=== PATIENT | male | born 1950 | race Caucasian/White ===

== ENCOUNTER 2017-01-17 09:30 | Inpatient (IN) | payer MEDICARE, OTHER ==
[~2017-01-17] VITALS: Ht 172.7 cm; Wt 76.5 kg
[2017-01-17] MEDS ORDERED: SODIUM CHLORIDE 0.9% 1L BAG IV* STA (10:26)
--- NOTE | 2017-01-17 10:30 | ERA ---
ER Documentation Chief Complaint Date/Time DATE: 01/17/17 TIME: 10:28 Chief Complaint FEVER WITH GENERALIZED WEAKNESS HPI Patient is a 66-year-old male who presents with 4-5 days of fever associated with generalized malaise and fatigue. He reports having a gradual onset, mild headache. He denies neck stiffness. He reports 2 episodes of coughing vomiting clear fluid. He reports a chronic cough productive of clear sputum that he associates with smoking. He denies shortness of breath, chest pain, back pain, dysuria, abdominal pain, diarrhea. He denies recent travel. He denies myalgias. ROS All systems reviewed and are negative except as per history of present illness. Medications Home Meds Reported Medications Febuxostat* (Uloric*) 40 Mg Tablet, 40 MG PO DAILY, TAB 01/17/17 Dexlansoprazole (Dexilant) 60 Mg Cap., 60 MG PO QAM, #30 CAP 01/17/17 Loratadine* (Loratadine*) 10 Mg Tablet, 10 MG PO DAILY, #30 TAB 01/17/17 Losartan Potassium* (Losartan Potassium*) 50 Mg Tablet, 50 MG PO DAILY, TAB 01/17/17 Zolpidem Tartrate* (Zolpidem Tartrate*) 10 Mg Tablet, 10 MG PO QHS Y for INSOMNIA, #30 TAB 01/17/17 Diltiazem Hcl* (Cardizem CD*) 240 Mg Cap.sr.24h, 240 MG PO DAILY, #30 CAP 01/17/17 Diphenhydramine Hcl* (Diphenhydramine Hcl*) 25 Mg Capsule, 25 MG PO QHS Y for ITCHING, CAP 01/17/17 Docusate Sodium* (Docusate Sodium*) 100 Mg Capsule, 100 MG PO TID, #90 CAP 01/17/17 Allergies Allergies: Coded Allergies: No Known Allergy (Unverified , 01/17/17) PMhx/Soc Past medical history: Abbi's granulomatosis, hypertension, chronic kidney disease, COPD, lung cancer Past surgical history: Resection of lung tumor, left wrist surgery Social history: Smoker for many years, occasional alcohol FmHx Family History: No coronary disease, No diabetes Physical Exam Vitals Vital Signs Date Time Temp Pulse Resp B/P Pulse Ox O2 Delivery O2 Flow Rate FiO2 01/17/17 10:57 98.1 97 21 164/87 99 01/17/17 09:32 97.0 108 18 146/83 98 Physical Exam Const: Alert, no acute distress Head: Atraumatic Eyes: Normal Conjunctiva, No pallor, no icterus ENT: Normal External Ears, Nose and Mouth. Tacky mucous membranes Neck: Full range of motion..~ No meningismus.No adenopathy. Resp: Clear to auscultation bilaterally, No wheezes, no rales Cardio: Regular rate and rhythm, no murmurs Abd: Soft, non tender, non distended.No guarding, no rebound Skin: No petechiae or rashes Back: No midline or flank tenderness Ext: No cyanosis, or edema Neur: Awake and alert, Cranial nerves II through XII intact bilaterally, strength and sensation full in 4 extremities. Psych: Normal Mood and Affect Result Diagram: 01/17/17 1002 01/17/17 1002 Results 24 hrs Laboratory Tests Test 01/17/17 10:02 01/17/17 11:53 White Blood Count 10.110^3/ul Red Blood Count 5.1010^6/ul Hemoglobin 14.0g/dl Hematocrit 40.0% Mean Corpuscular Volume 78.4fl Mean Corpuscular Hemoglobin 27.5pg Mean Corpuscular Hemoglobin Concent 35.0g/dl Red Cell Distribution Width 15.9% Platelet Count 22995^3/UL Mean Platelet Volume 10.5fl Neutrophils % 80.6% Lymphocytes % 7.2% Monocytes % 10.8% Eosinophils % 0.4% Basophils % 0.4% Nucleated Red Blood Cells % 0.0/100WBC Neutrophils # (Manual) 8.110^3/ul Lymphocytes # 0.710^3/ul Monocytes # 1.110^3/ul Eosinophils # 0.010^3/ul Basophils # 0.010^3/ul Nucleated Red Blood Cells # 0.010^3/ul Prothrombin Time 12.0Sec Prothrombin Time Ratio 0.9 INR International Normalized Ratio 0.89 Activated Partial Thromboplast Time 25.3Sec Sodium Level 134mmol/L Potassium Level 4.0mmol/L Chloride Level 99mmol/L Carbon Dioxide Level 22mmol/L Anion Gap 17 Blood Urea Nitrogen 20mg/dl Creatinine 2.30mg/dl Glucose Level 170mg/dl Lactic Acid Level 1.7mmol/L Calcium Level 9.7mg/dl Total Bilirubin 0.2mg/dl Direct Bilirubin 0.00mg/dl Indirect Bilirubin 0.2mg/dl Aspartate Amino Transf (AST/SGOT) 21IU/L Alanine Aminotransferase (ALT/SGPT) 33IU/L Alkaline Phosphatase 98IU/L Total Protein 7.1g/dl Albumin 4.4g/dl Globulin 2.70g/dl Albumin/Globulin Ratio 1.62 Urine Color YELLOW Urine Clarity CLEAR Urine pH 5.0 Urine Specific [place] 1.018 Urine Ketones NEGATIVEmg/dL Urine Nitrite NEGATIVEmg/dL Urine Bilirubin NEGATIVEmg/dL Urine Urobilinogen NEGATIVEmg/dL Urine Leukocyte Esterase NEGATIVELeu/ul Urine Microscopic RBC 2/HPF Urine Microscopic WBC 1/HPF Urine Bacteria FEW/HPF Urine Hemoglobin NEGATIVEmg/dL Urine Glucose NEGATIVEmg/dL Urine Total Protein 3+mg/dl Current Medications Medications (Trade) Dose Ordered Sig/Zaire Route PRN Reason Start Time Stop Time Status Last Admin Dose Admin Sodium Chloride (NS) 2,390 ml BOLUS OVER 2 HOURS STAT IV* 01/17/17 10:26 01/17/17 10:28 DC 01/17/17 10:56 Acetaminophen (Tylenol Tab) 1,000 mg ONCE STAT PO 01/17/17 11:08 01/17/17 11:16 DC 01/17/17 11:22 Ondansetron HCl (Zofran Inj) 4 mg BRIDGE ORDER PRN IV NAUSEA AND/OR VOMITING 01/17/17 14:00 01/18/17 13:59 Acetaminophen 650 mg 650 mg ER BRIDGE PRN PO MILD PAIN/FEVER 01/17/17 14:00 01/18/17 13:59 Sodium Chloride (NS) 1,000 ml @ 85 mls/hr [id number] IV 01/17/17 14:14 IV Flush (NS 3 ml) 3 ml PER PROTOCOL IV 01/17/17 14:30 Ondansetron HCl (Zofran Inj) 4 mg Q6H PRN IV NAUSEA AND/OR VOMITING 01/17/17 14:30 Acetaminophen (Tylenol Tab) 650 mg Q6H PRN PO PAIN LEVEL 1-3 OR FEVER 01/17/17 14:30 Acetaminophen/ Hydrocodone Bitart (Hitchins (5/325)) 1 tab Q6H PRN PO MODERATE PAIN LEVEL 4-6 01/17/17 14:30 Morphine Sulfate (morphine) 2 mg Q4H PRN IV SEVERE PAIN LEVEL 7-10 01/17/17 14:30 Docusate Sodium (Colace) 100 mg Q12H PRN PO CONSTIPATION 01/17/17 14:30 Magnesium Hydroxide (Milk Of Mag) 30 ml DAILY PRN PO CONSTIPATION 01/17/17 14:30 Pantoprazole (Protonix Tab) 40 mg DAILY@06 PO 01/18/17 06:00 Heparin Sodium (Porcine) (Heparin (5000 Units/0.5 ml)) 5,000 unit Q12 SC 01/17/17 21:00 Diltiazem HCl (Cardizem Cd) 240 mg DAILY PO 01/18/17 09:00 Diphenhydramine HCl (Benadryl) 25 mg QHS PRN PO ITCHING 01/17/17 14:30 Docusate Sodium (Colace) 100 mg TID PO 01/17/17 21:00 Febuxostat (Uloric) 40 mg DAILY PO 01/18/17 09:00 Loratadine (Claritin) 10 mg DAILY PO 01/18/17 09:00 Zolpidem Tartrate 10 mg 10 mg QHS PRN PO INSOMNIA 01/17/17 14:30 Piperacillin Sod/ Tazobactam Sod (Zosyn 2.25gm/ 50ml (Pmx)) 50 ml @ 200 mls/hr Q6 IVPB 01/17/17 18:00 Procedures/MDM MDM: Patient is a 66-year-old male who has had 4-5 days of documented fever at home. He has no significant localizing symptoms such as abdominal pain, vomiting, cough. He has no meningeal signs on exam, and has no significant headache. There are no findings of soft tissue infection. There is no leukocytosis, the patient is afebrile in the ER, other labs are unremarkable. Chest x-ray and UA are negative for infection. Blood and urine cultures were sent. The patient has chronic kidney disease but no evidence of acute renal injury. He remains presyncopal with standing after receiving IV fluids. Although the patient does not have any specific findings, I am concerned about the possibility of occult sepsis as well as the duration of symptoms. I will admit the patient to observation for further workup. Antibiotics were withheld due to lack of fever, sores criteria, or documented infection. Departure Diagnosis: Primary Impression: Febrile illness Additional Impressions: Generalized weakness Pre-syncope Condition: Stable GANESH FLETCHER MD Jan 17, 2017 10:30
[2017-01-17 10:36] LABS: BASOPHILS % 0.4 % (0.0-2.0); EOSINOPHILS % 0.4 % (0.0-7.0); LYMPHOCYTES # 0.7 10^3/ul (0.8-2.9); LYMPHOCYTES % 7.2 % (15.0-51.0); MEAN CORPUSCULAR HEMOGLOBIN 27.5 pg (29.0-33.0); MEAN CORPUSCULAR VOLUME 78.4 fl (82.0-101.0); MEAN PLATELET VOLUME 10.5 fl (7.4-10.4); MONOCYTE # 1.1 10^3/ul (0.3-0.9); MONOCYTES % 10.8 % (0.0-11.0); NEUTROPHILS % 80.6 % (39.0-77.0); PLATELET COUNT 296 10^3/UL (140-415); RED CELL DISTRIBUTION WIDTH 15.9 % (11.5-14.5); WHITE BLOOD COUNT 10.1 10^3/ul (4.8-10.8)
[2017-01-17 10:37] LABS: INR 0.89; PT RATIO 0.9
[2017-01-17 10:38] LABS: PARTIAL THROMBOPLASTIN TIME 25.3 Sec (25.0-35.0)
[2017-01-17 10:41] LABS: ALBUMIN 4.4 g/dl (3.3-4.9); ALBUMIN/GLOBULIN RATIO 1.62; BILIRUBIN,INDIRECT 0.2 mg/dl (0-1.1); BILIRUBIN,TOTAL 0.2 mg/dl (0.2-1.3); CALCIUM 9.7 mg/dl (8.4-10.2); CREATININE 2.3 mg/dl (0.61-1.24); TOTAL PROTEIN 7.1 g/dl (6.1-8.1)
--- NOTE | 2017-01-17 11:00 | RADRPT ---
PROCEDURE: Chest radiograph CLINICAL INDICATION: Sepsis. COMPARISON: None relevant listed. TECHNIQUE: Single frontal chest radiograph. FINDINGS: The lungs are clear. No pleural effusion or focal parenchymal opacity. The cardiomediastinal silhouette is normal. No suspicious bone lesion. IMPRESSION: No acute cardiopulmonary abnormality. RPTAT: PP Physician Kerline Date Time Electronically viewed and signed by Hayden Billy Physician on 01/17/2017 11:00 LG/
[2017-01-17] MEDS ORDERED: ACETAMINOPHEN 500 MG TAB PO STA (11:08)
[2017-01-17] MEDS ORDERED: DOCU-159 PO (11:30)
[2017-01-17] MEDS ORDERED: DIPH25CA6 PO (11:30)
[2017-01-17] MEDS ORDERED: LOSA50TA6 PO (11:31)
[2017-01-17] MEDS ORDERED: DILT240C79 PO (11:31)
[2017-01-17] MEDS ORDERED: ZOLP10TA5 PO (11:31)
[2017-01-17] MEDS ORDERED: FEBU40TA PO (11:32)
[2017-01-17] MEDS ORDERED: DEXL60CA2 PO (11:32)
[2017-01-17] MEDS ORDERED: LORA10TA3 PO (11:32)
[2017-01-17 13:05] LABS: ADD UMIC YES; UR ASCORBIC ACID NEGATIVE (NEGATIVE); UR BACTERIA FEW /HPF (NONE SEEN); UR BILIRUBIN (Dip) NEGATIVE (NEGATIVE); UR BLOOD (Dip) NEGATIVE (NEGATIVE); UR CLARITY CLEAR (CLEAR); UR COLOR YELLOW (YELLOW); UR GLUCOSE (Dip) NEGATIVE (NEGATIVE); UR KETONES (Dip) NEGATIVE (NEGATIVE); UR LEUKOCYTE ESTERASE (Dip) NEGATIVE Leu/ul (NEGATIVE); UR NITRITE (Dip) NEGATIVE (NEGATIVE); UR RBC 2 /HPF (0-5); UR SPECIFIC GRAVITY (Dip) 1.018 (1.003-1.030); UR TOTAL PROTEIN (Dip) 3+ mg/dl (NEGATIVE); UR UROBILINOGEN (Dip) NEGATIVE (NEGATIVE)
[2017-01-17] MEDS ORDERED: ACETAMINOPHEN 325 MG TAB PO PRN ×2 (14:00→14:30)
[2017-01-17] MEDS ORDERED: ONDANSETRON 4 MG INJ IV PRN ×2 (14:00→14:30)
[2017-01-17] MEDS ORDERED: HYDROCODONE/APAP (5/325) TAB PO PRN (14:30)
[2017-01-17] MEDS ORDERED: DOCUSATE SODIUM 100 MG CAP PO PRN (14:30)
[2017-01-17] MEDS ORDERED: ZOLPIDEM 5 MG TAB PO PRN (14:30)
[2017-01-17] MEDS ORDERED: DIPHENHYDRAMINE 25 MG CAP PO PRN (14:30)
[2017-01-17] MEDS ORDERED: NACL 0.9% 3 ML SYG IV SCH (14:30)
[2017-01-17] MEDS ORDERED: MAGNESIUM HYDROXIDE 30ML CUP PO PRN (14:30)
--- NOTE | 2017-01-17 16:21 | HP ---
DATE OF ADMISSION: 01/17/2017 REASON FOR ADMISSION: Fevers, chills, weakness, decreased p.o. intake for almost a week. HISTORY OF PRESENT ILLNESS: The patient is a 66-year-old male, originally from [place] and with history of Abbi granulomatosis with some renal involvement, history of early stage lung cancer, status post resection more than 9 years ago, hypertension, allergies, and gout. The patient was in usual state of health up until the 5-7 days prior to admission when he noted to have fevers every day. He mentioned was between 37-39 degree Celsius. This was associated with chills and tremor. The patient does report a chronic cough. He associates it to his smoking. During the past week, he has been complaining of generalized weakness, decreased p.o., and the day prior to admission, he also had difficulty walking as he was so weak. The patient decided to come to the Emergency Department for evaluation of his ongoing fevers and weakness. In the ER, the patient had a normal white count of 10.1 and a creatinine of 2.3, which may be all his baseline. Urine shows nitrites and leukocyte esterase negative. Chest x-ray showed no acute cardiopulmonary abnormality. The patient received IV fluid hydration, Tylenol and Zofran. Because of his above symptoms, it was decided to admit the patient to the medical-surgical floor to evaluate fully his fevers and weakness. Upon questioning, the patient denies any headaches or blurred vision. Denies any chest pain, no shortness of breath. Denies any abdominal pain. Does report weakness. Denies any numbness. PAST MEDICAL HISTORY: Abbi granulomatosis, CKD, hypertension, gout., allergies, history of lung cancer status post resection 9 years ago. ALLERGIES: NO DRUG ALLERGIES. MEDICATIONS: 1. Rituxan given IV every 6 months. 2. Colcrys 0.6 daily. 3. Uloric 40 mg daily. 4. Claritin 10 mg daily. 5. Benadryl 25 mg at night for his allergies. 6. Ambien 10 mg q.h.s. p.r.n. for insomnia. 7. Cardizem CD 240 mg daily. 8. Colace 100 t.i.d. 9. Dexilant 60 mg daily. 10. Losartan 50 mg daily. PRIMARY CARE DOCTOR: His primary care physician is Dr. Manuel Baker, who is his primary and skilled nursing facilities professional. FAMILY HISTORY: Mother from breast cancer. She was 94 years old. Unfortunately, his father at age 59 from acute [place]. The patient's last colonoscopy was about 7-8 years ago which was normal. SOCIAL HISTORY: The patient is x1. 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 The patient smokes about half a pack a day for at least 50 years. Alcohol socially. IV drug abuse denies. SURGICAL HISTORY: Left hand and wrist surgery, and lung cancer resection surgery about 9 years ago in the right side. The patient states he was very minor and he is in remission. REVIEW OF SYSTEMS: Per HPI. PHYSICAL EXAMINATION: VITAL SIGNS: Temperature 98.1, pulse 97, respirations 21, blood pressure elevated 164/87. GENERAL: Patient is in no acute distress. He is a little bit of warm to touch at the forehead as he may now have a fever. HEENT: The tongue is dry. No evidence of thrush. NECK: No lymphadenopathy. No thyroid enlargement. CARDIOVASCULAR SYSTEM: S1, S2. Regular rate and rhythm. LUNGS: Clear bilaterally. ABDOMEN: Soft, slightly overweight. Negative hepatosplenomegaly. EXTREMITIES: No clubbing, cyanosis, or edema. He has a scar in the left hand from previous surgery. Strength appears to be intact throughout. He is moving all extremities. LABS: White count is 10.1, hemoglobin 14, hematocrit 40, platelet count 296. Neutrophils 81 percent, lymphocytes 7 percent. Chemistry: Sodium 134, potassium 4.0, chloride 99, bicarb 22, BUN is 20, creatinine 2.3, glucose of 170 which is slightly elevated. Lactic acid normal at 1.7. AST 21, ALT 33, alk phos 98, total protein 7.1, albumin 4.4, INR 0.89. UA shows nitrite, leukocyte esterase negative, RBC 2, WBC 1, few bacteria. Total protein +3, influenza A and B negative. Chest x-ray shows no acute cardiopulmonary disease. EKG pending. ASSESSMENT AND PLAN: This is a 66-year-old, male, with history of Abbi granulomatosis, CKD, active smoker, hypertension who presents with almost one week of fevers and chills, generalized weakness and decreased p.o. intake. 1. Respiratory: The patient does have a cough. Chest x-ray is unremarkable. In the setting of previous history of lung cancer, may consider a CT scan of the chest. Also the patient may have an upper respiratory infection or bronchitis, because of his fevers and cough. Will consider antibiotics and management. The patient is an immunocompromised and we will give him broader antibiotic coverage. 2. Cardiovascular: The patient is hypertensive. Will we will restart patient's Cardizem. The patient will be placed on heparin for DVT prophylaxis. Follow up EKG results and may consider echocardiogram if fever continues or any blood cultures are positive to rule out endocarditis. 3. Chronic kidney disease, likely at baseline. Observe. May consider renal ultrasound. Urinalysis does show proteinuria. Will quantify it and monitor kidney function. In the meantime, patient will be hydrated in the setting of fevers and chills. 4. ID: Patient with fevers. Differential diagnosis may include pulmonary infection. Will obtain a throat culture. Follow up urine culture and blood culture results and, again, may consider further imaging tests as well if patient's fevers continue, and may consider ID consult. 5. Abbi granulomatosis. Patient takes Rituxan. He follows closely with his skilled nursing facilities professional. Check ESR CRP. May consider rheumatology follow up here in the hospital. 6. Decreased appetite, likely secondary to the above febrile illness. We will continue to monitor the patient's progress. 7. Patient will be placed on Protonix for GI prophylaxis. 8. History of gout. Check uric acid levels. Continue Uloric and Colcrys. 9. Check MRSA of the nares. We will follow closely. Dictated By: Gurwinder Triplett MD /[email or web address] /Document#: [id number]
--- NOTE | 2017-01-17 16:29 | RADRPT ---
PROCEDURE: US Abdomen. CLINICAL INDICATION: fevers, renal insufficiency TECHNIQUE: Multiple real-time images were acquired of the patient's abdomen and retroperitoneum ut ilizing a high resolution transducer. COMPARISON: None FINDINGS: Visualized portions of the pancreatic head and proximal body are unremarkable. The liver is enlarge d measuring 21 cm in length. The liver is otherwise unremarkable. The gallbladder is normal without evidence of cholelithiasis, pericholecystic fluid or gallbladder w all thickening. The technologist reports a negative sonographic Dumont's sign. The common bile du ct measures 3.2 mm in maximal dimension. No free fluid is identified. The kidneys are normal size, and demonstrate normal echogenicity and morphology. The right kidney m easures 9.0 cm in long dimension. The left kidney measures 10.2 cm. There is no dilatation of the pelvicaliceal systems bilaterally. There are no perinephric fluid collections. There are no areas of increased echogenicity to suggest nephrolithiasis. The proximal aorta measures 1.4 cm in transverse dimension. The mid aorta measures 1.3 cm in transv erse dimension. Fifth The spleen is normal in size measuring 10.3 cm. IMPRESSION: The liver is enlarged measuring 21 cm in length. Otherwise, no significant abnormalities are identif ied. RPTAT:AAJJ Physician Edenilson Date Time Electronically viewed and signed by Physician Edenilson on 01/17/2017 16:29 VICTOR MANUEL/
[2017-01-17] MEDS: PIPER-TAZO 2.25 GM (PMX) 50 ML IVPB SCH (16:30)
[2017-01-17 16:34] VITALS: TEMP 98.9
[2017-01-17 17:00] VITALS: BP 180/93; RESP 28
[2017-01-17] MEDS: SOD CHLORIDE 0.9% 1,000 ML IV SCH (17:00)
[2017-01-17 17:14] LABS: PROTEIN/CREAT RATIO 5.78 RATIO
[2017-01-17] MEDS ORDERED: DIPHENHYDRAMINE 50 MG INJ IV PRN (18:30)
[2017-01-17 18:39] VITALS: Ht 172.7 cm; Wt 76.5 kg
[2017-01-17] MEDS: DILTIAZEM (CD) 240 MG CAP PO SCH (18:54)
[2017-01-17] MEDS ORDERED: DILTIAZEM (CD) 240 MG CAP PO SCH (19:30)
[2017-01-17 19:43] VITALS: BP 183/98; RESP 20
[2017-01-17] MEDS: DOCUSATE SODIUM 100 MG CAP PO SCH (20:40)
[2017-01-17] MEDS: METOPROLOL 25 MG TAB PO SCH (20:41)
[2017-01-17] MEDS: HEPARIN 5,000 UNIT/0.5 ML VIAL SC SCH (20:55)
[2017-01-17 21:15] VITALS: BP 158/78; RESP 20
[2017-01-17] MEDS ORDERED: ACETAMINOPHEN 325 MG TAB PO ONE (21:30)
[2017-01-17 22:30] VITALS: BP 159/68; PULSE 100; RESP 20
[2017-01-18] MEDS: PIPER-TAZO 2.25 GM (PMX) 50 ML IVPB SCH ×3 (00:38→13:25)
[2017-01-18 01:41] VITALS: BP 174/90; RESP 20
[2017-01-18] MEDS: ACETAMINOPHEN 500 MG TAB PO PRN ×4 (01:52→23:58)
[2017-01-18] MEDS: SOD CHLORIDE 0.9% 1,000 ML IV SCH ×2 (02:00→15:14)
[2017-01-18 03:30] VITALS: BP 158/63; PULSE 100; RESP 20
[2017-01-18 06:19] LABS: BASOPHILS % 0.3 % (0.0-2.0); HEMATOCRIT 34.4 % (42.0-52.0); HEMOGLOBIN 12.3 g/dl (14.0-18.0); LYMPHOCYTES # 0.8 10^3/ul (0.8-2.9); LYMPHOCYTES % 6.2 % (15.0-51.0); MEAN CORPUSCULAR HEMOGLOBIN 28.3 pg (29.0-33.0); MEAN CORPUSCULAR HGB CONC 35.8 g/dl (32.0-37.0); MEAN CORPUSCULAR VOLUME 79.3 fl (82.0-101.0); MEAN PLATELET VOLUME 10.9 fl (7.4-10.4); MONOCYTE # 1.4 10^3/ul (0.3-0.9); MONOCYTES % 11.4 % (0.0-11.0); NEUTROPHILS % 81.5 % (39.0-77.0); PLATELET COUNT 250 10^3/UL (140-415); RED BLOOD COUNT 4.34 10^6/ul (4.70-6.10); RED CELL DISTRIBUTION WIDTH 15.4 % (11.5-14.5); WHITE BLOOD COUNT 12.3 10^3/ul (4.8-10.8)
[2017-01-18 06:44] LABS: ALBUMIN 3.6 g/dl (3.3-4.9); ALBUMIN/GLOBULIN RATIO 1.63; BILIRUBIN,INDIRECT 0.3 mg/dl (0-1.1); BILIRUBIN,TOTAL 0.3 mg/dl (0.2-1.3); CALCIUM 8.8 mg/dl (8.4-10.2); CREATININE 2.17 mg/dl (0.61-1.24); MAGNESIUM 1.6 mg/dl (1.7-2.5); PHOSPHORUS 2.7 mg/dl (2.5-4.9); TOTAL PROTEIN 5.8 g/dl (6.1-8.1)
[2017-01-18] MEDS: PANTOPRAZOLE (EC) 40 MG TAB PO SCH (06:58)
[2017-01-18 07:34] VITALS: BP 147/81; RESP 18
[2017-01-18 07:53] LABS: THYROID STIMULATING HORMONE 1.36 MIU/L (0.465-4.680)
[2017-01-18] MEDS ORDERED: DILTIAZEM (CD) 240 MG CAP PO SCH (09:00)
[2017-01-18 09:01] VITALS: BP 167/95; PULSE 88; RESP 20
[2017-01-18] MEDS: LORATADINE 10 MG TAB PO SCH (09:03)
[2017-01-18] MEDS: DOCUSATE SODIUM 100 MG CAP PO SCH ×3 (09:03→20:23)
[2017-01-18] MEDS: DILTIAZEM (CD) 240 MG CAP PO SCH (09:04)
[2017-01-18] MEDS: FEBUXOSTAT 40 MG TABLET PO SCH (09:04)
[2017-01-18] MEDS: LORAZEPAM 1 MG TAB PO PRN ×2 (09:04→22:36)
[2017-01-18] MEDS: METOPROLOL 25 MG TAB PO SCH ×2 (09:04→20:24)
[2017-01-18] MEDS: HEPARIN 5,000 UNIT/0.5 ML VIAL SC SCH ×2 (09:06→20:32)
[2017-01-18] MEDS ORDERED: IPRATROPIUM (NEB) 0.5 MG/2.5 ML AMP NEB PRN (10:30)
[2017-01-18] MEDS ORDERED: ALBUTEROL/IPRATROPIUM (NEB) 3 ML AMP NEB PRN (10:30)
[2017-01-18] MEDS ORDERED: MAGNESIUM SULFATE 2 GM/50 ML 50 ML IVPB ONE (11:00)
[2017-01-18] MEDS ORDERED: LEVOFLOXACIN 500MG/D5W (PMX) 100 ML IVPB SCH (11:00)
--- NOTE | 2017-01-18 11:07 | PN ---
DATE: 01/18/2017 SUBJECTIVE DATA: Patient seen. The patient has the fevers all night, high-grade. T max was 102.7 at 9:15 p.m. The patient has chills and tremors throughout the night. In addition, he was more confused, trying to remove IVs and jump out of bed. The case discussed in detail with nursing staff. In addition blood pressure has been elevated blood. Pressure medication has been given. PHYSICAL EXAM: VITAL SIGNS: Temperature 98.7, pulse 88, respirations 20, blood pressure 167/95, saturation is 98 percent on room air. GENERAL: Patient is sick looking, sweating and slightly pale. NECK: No JVD. HEART: S1, S2. Regular rate and rhythm. LUNGS: Clear bilaterally. ABDOMEN: Soft, nontender. EXTREMITIES: No clubbing, cyanosis, or edema. LABS: White count increased to 12.3, hemoglobin 12.2, hematocrit 34, platelet count 252, neutrophil 82 percent, lymphocytes 6 percent. Chemistry: Sodium is 134, potassium 4.0, chloride 103, bicarb 20, BUN is 19, creatinine 2.17, glucose of 77. Hemoglobin A1c 5.5. Uric acid, normal 5.1, lactic acid yesterday was 1.7. LFTs all normal. CRP 0.9. TSH 1.36, albumin 3.6. UA shows few bacteria. Total protein +3 Influenza a and B negative. Abdominal ultrasound was done, which showed the liver is enlarged measuring 21 cm in length, otherwise no significant abnormalities are identified. ASSESSMENT AND PLAN: This is a 66-year-old, male, with history of Abbi granulomatosis, chronic kidney disease, active smoking, hypertension, who presents with one week of fever and chills, generalized weakness with decreased p.o. intake. 1. Febrile illness. The patient continued to have high-grade fever and ID consult was obtained. The patient was started on Zosyn. Will add Levaquin for community-acquired infection. Follow up all cultures and sensitivities. Differential diagnoses include likely acute bronchitis or upper respiratory infection causing this. If the patient has further revers, may consider further imaging studies such as CT scan of the chest and abdomen. 2. Cardiovascular: The patient is hypertensive. Patient was started on Cardizem, metoprolol and p.r.n. hydralazine. EKG shows normal sinus rhythm at 79 beats per minute. 3. CKD, stable. Continue gentle hydration in the setting off fevers. Kidney function remains stable. Continued magnesium supplements are being provided. 4. Abbi granulomatosis. Patient receiving Rituxan on an outpatient basis. ESR and CRP within normal limits. We will follow. 5. Decreased appetite likely from fevers. Observed the patient's appetite is not very good. We will continue to monitor. 6. Continue Protonix for GI prophylaxis. 7. History of gout. Continue Uloric. Uric acid levels are normal. 8. The patient is on DVT prophylaxis with heparin. 9. Nicotine dependency and patient also uses marijuana. The patient will be started on nicotine patch, 14mg daily, and Ativan p.r.n. will be given for anxiety. Family is aware of the patient's current condition. Will continue to monitor closely. Dictated By: Gurwinder Triplett MD /[email or web address] /Document#: [id number] [place]
[2017-01-18] MEDS: NICOTINE (14 MG/24 HR) PATCH TRANSDERM SCH (11:31)
[2017-01-18] MEDS ORDERED: VANCOMYCIN IV PER PHARMACY XX SCH (13:30)
[2017-01-18 13:31] LABS: BASOPHILS % 0.3 % (0.0-2.0); HEMATOCRIT 35.6 % (42.0-52.0); HEMOGLOBIN 12.9 g/dl (14.0-18.0); LYMPHOCYTES # 0.9 10^3/ul (0.8-2.9); MEAN CORPUSCULAR HEMOGLOBIN 28.4 pg (29.0-33.0); MEAN CORPUSCULAR HGB CONC 36.2 g/dl (32.0-37.0); MEAN CORPUSCULAR VOLUME 78.4 fl (82.0-101.0); MEAN PLATELET VOLUME 10.9 fl (7.4-10.4); MONOCYTE # 1.3 10^3/ul (0.3-0.9); MONOCYTES % 10.6 % (0.0-11.0); NEUTROPHILS % 81.8 % (39.0-77.0); PLATELET COUNT 267 10^3/UL (140-415); RED BLOOD COUNT 4.54 10^6/ul (4.70-6.10); RED CELL DISTRIBUTION WIDTH 15.6 % (11.5-14.5); WHITE BLOOD COUNT 12.5 10^3/ul (4.8-10.8)
[2017-01-18 14:25] VITALS: BP 150/81; RESP 20
--- NOTE | 2017-01-18 14:26 | CONS ---
Date/Time of Note Date/Time of Note DATE: 01/18/17 TIME: 13:[address] BRAIN * Spoke w/Neuro Dr. Torre -- concern needs to r/o meningitis per new onset double vision * Pt for LP CSF r/o Meningitis - sxs more consistent with viral etiology will adjust empiric ABX change LEvaquin to Ceftriaxone, continue Zosyn for Listeria, continue Vanco, check HSV IgG, IgM * Will alert Dr. Triplett -- recommend proceed to LP Assessment/Plan Assessment/Plan Chief Complaint/Hosp Course * PLEASE NOTE: * Dr. Galvez (covering for Dr. Roberts) => Initial consult note dictation pending report posting. * Dr. Cole", neurologist and his spoke with Dr. Galvez and I today via conference speaker [place]. . ID SHORT NOTE CURRENT ABX: Levaquin #1 + Zosyn #1 + Vanco IV #1 BRIEF HPI SUMMARY 65 yo M w/ PMHx Abbi's granulomatosis, HTN, Gout, CKD, COPD, lung cancer ( hx of resection), chronic tobacco x many years, occasional ETOH admit with fevers, chills, weakness. * ROS: 5 days fevers/chills/malaise/fatigue/ progressive headache w/ 2 episodes clear fluid emesis associated w/cough, chronic smokers cough, (-) photophobia, (-)nuchal rigidity, (+)Diplopia, (-)Nausea, (-)Diarrhea, (-)known sick contacts , (-)recent travel, (+)Cat at home, no fleas, no recent hiking. He denies shortness of breath, chest pain, back pain, dysuria, abdominal pain, diarrhea. He denies recent travel. He denies myalgias. No recent dental work. No dental pain. * TODAY: A/A/ oriented to self, some intermittent confusions per family (+) fevers/shaking chills (+)double vision, no photophobia, neck supple. EXAM GEN: A/A/ oriented to self, some intermittent confusions per family, follows commands in Polish, (+)shaking chills HEENT: Scalp with sun exposure senile lesions, benign looking moles, anicteric, EOMSI, oropharynx missing teeth, multiple crowns NECK: supple CVS: RRR CHEST: Equal chest rise bilaterally with supplemental O2 via NC, no dyspnea, no wheeze ABD: Soft, NT, + BS EXT: No c/c/e NEURO: Grossly intact, moves all extremities SKIN: No diaphoresis, no obvious rash ID ASSESSMENT 66 yo Polish speaking M admit with: 1. SIRS w/fevers/chillls, malaise, fatigue, headache, double vision w/ TMax 101.7, leukocytosis, 12.5, VSS, ESR 10 => Fever unknown origin * Possible viral syndrome vs opportunistic infection source ? * r/o encephalitis -> CT brain pending * 01/17 BCx (-) <24H * 01/17 UA (-) * 01/17 INFLUENZA A & B BY EIA Final INFLU A&B BY EIA INFLUENZA A NEGATIVE (Ref Range Neg) INFLUENZA B NEGATIVE (Ref Range Neg) 2. Immunocompromised Host 2/2 [place]'s granulomatosis * Rx Rituxin Q 6 mos * Current ESR 10, CRP 0.9 3. HTN 4. COPD 5. Current + long-term tobaccoism 4. history of lung cancer status post resection 9-yrs keyon 5. CKD 6. Gout 7. Environmental allergies ( ) MRSA Nares -> ordered INVASIVES: PIV CURRENT ABX: Levaquin #1 + Zosyn #1 + Vanco IV #1 ID RECOMMENDATIONS 1.Continue current ABX + Start Vanco IV dose per pharmacy 2. Pt to have CT Brain today 3. Swab nares for MRSA 4. Immune Globulins ordered at recommendation of Dr. Galvez 5. Rheumatology consult per Dr. Triplett pending 6. 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 Immunocompromised work up serology ordered including * CD4 / T-Cell profile screening * Procalcitonin ordered * Viral, Bacterial, Fungal, Parasitic serology vs urine Ab vs Antigens ordered 8. Further recommendations pending Dr. Galvez, ID Attending full consult note dictation * Thank you -- plan of care above d/w Dr. Cole" and spouse who express understanding, agreement, gratitude for ID recommendations Problems: Consultation Date/Type/Reason Admit Date/Time Jan 17, 2017 at 13:40 Initial Consult Date Exam/Review of Systems Vital Signs Vitals Vital Signs Date Time Temp Pulse Resp B/P Pulse Ox O2 Delivery O2 Flow Rate FiO2 01/18/17 09:59 98.7 01/18/17 09:01 88 20 167/95 98 Room Air Intake and Output 01/17/17 01/17/17 01/18/17 15:00 23:00 07:00 Intake Total 2390 ml 85 ml 290 ml Output Total 1000 ml Balance 2390 ml 85 ml -710 ml Results Result Diagram: 01/18/17 1220 01/18/17 0529 Results 24 hrs Laboratory Tests Test 01/18/17 05:28 01/18/17 05:29 01/18/17 12:20 Uric Acid 5.1 White Blood Count 12.3 #H 12.5 H Red Blood Count 4.34 L 4.54 L Hemoglobin 12.3 L 12.9 L Hematocrit 34.4 L 35.6 L Mean Corpuscular Volume 79.3 L 78.4 L Mean Corpuscular Hemoglobin 28.3 L 28.4 L Mean Corpuscular Hemoglobin Concent 35.8 36.2 Red Cell Distribution Width 15.4 H 15.6 H Platelet Count 250 267 Mean Platelet Volume 10.9 H 10.9 H Neutrophils % 81.5 H 81.8 H Lymphocytes % 6.2 L 7.0 L Monocytes % 11.4 H 10.6 Eosinophils % 0.0 0.0 Basophils % 0.3 0.3 Nucleated Red Blood Cells % 0.0 0.0 Neutrophils # (Manual) 10.0 H 10.2 H Lymphocytes # 0.8 0.9 Monocytes # 1.4 H 1.3 H Eosinophils # 0.0 0.0 Basophils # 0.0 0.0 Nucleated Red Blood Cells # 0.0 0.0 Erythrocyte Sedimentation Rate 10.0 Sodium Level 134 L Potassium Level 4.0 Chloride Level 103 Carbon Dioxide Level 20 L Anion Gap 15 Blood Urea Nitrogen 19 Creatinine 2.17 H Glucose Level 77 # Hemoglobin A1c 5.5 Calcium Level 8.8 Phosphorus Level 2.7 Magnesium Level 1.6 L Total Bilirubin 0.3 Direct Bilirubin 0.00 Indirect Bilirubin 0.3 Aspartate Amino Transf (AST/SGOT) 44 # Alanine Aminotransferase (ALT/SGPT) 34 Alkaline Phosphatase 79 C-Reactive Protein 0.9 Total Protein 5.8 #L Albumin 3.6 Globulin 2.20 Albumin/Globulin Ratio 1.63 Thyroid Stimulating Hormone (TSH) 1.360 Medications Medications Current Medications Sodium Chloride (NS) 1,000 ml @ 85 mls/hr [id number] IV Last administered on 17:00; Admin Dose 85 MLS/HR; Start 01/17/17 at 14:14 Ondansetron HCl (Zofran Inj) 4 mg Q6H PRN IV NAUSEA AND/OR VOMITING; Start 01/17 at 14:30 Acetaminophen/ Hydrocodone Bitart ([place] (5/325)) 1 tab Q6H PRN PO MODERATE PAIN LEVEL 4-6; Start 01/17/17 at 14:30 Morphine Sulfate (morphine) 2 mg Q4H PRN IV SEVERE PAIN LEVEL 7-10; Start at 14:30 Docusate Sodium (Colace) 100 mg Q12H PRN PO CONSTIPATION; Start 01/17/17 at 14: 30 Magnesium Hydroxide (Milk Of Mag) 30 ml DAILY PRN PO CONSTIPATION; Start at 14:30 Pantoprazole (Protonix Tab) 40 mg DAILY@06 PO Last administered on 01/18/17 06: 58; Admin Dose 40 MG; Start 01/18/17 at 06:00 Heparin Sodium (Porcine) (Heparin (5000 Units/0.5 ml)) 5,000 unit Q12 SC Last administered on 01/18/17 09:06; Admin Dose 5,000 UNIT; Start 01/17/17 at 21:00 Diphenhydramine HCl (Benadryl) 25 mg QHS PRN PO ITCHING; Start 01/17/17 at 14:30 Docusate Sodium (Colace) 100 mg TID PO Last administered on 01/18/17 09:03; Admin Dose 100 MG; Start 01/17/17 at 21:00 Febuxostat (Uloric) 40 mg DAILY PO Last administered on 01/18/17 09:04; Admin Dose 40 MG; Start 01/18/17 at 09:00 Loratadine (Claritin) 10 mg DAILY PO Last administered on 01/18/17 09:03; Admin Dose 10 MG; Start 01/18/17 at 09:00 Zolpidem Tartrate 10 mg 10 mg QHS PRN PO INSOMNIA Last administered on 01:48; Admin Dose 10 MG; Start 01/17/17 at 14:30 Piperacillin Sod/ Tazobactam Sod (Zosyn 2.25gm/ 50ml (Pmx)) 50 ml @ 200 mls/hr Q6 IVPB Last administered on 01/18/17 13:25; Admin Dose 200 MLS/HR; Start at 18:00 Metoprolol Tartrate (Lopressor) 25 mg BID PO Last administered on 01/18/17 09: 04; Admin Dose 25 MG; Start 01/17/17 at 21:00 Diphenhydramine HCl (Benadryl) 25 mg Q4H PRN IV CHILLS; Start 01/17/17 at 18:30 Diltiazem HCl (Cardizem Cd) 240 mg DAILY PO Last administered on 01/18/17 09:04 ; Admin Dose 240 MG; Start 01/17/17 at 18:30 Acetaminophen (Tylenol Tab) 1,000 mg Q4 PRN PO PAIN LEVEL 1-3 OR FEVER/chills Last administered on 01/18/17 09:08; Admin Dose 1,000 MG; Start 01/18/17 at 01:00 Hydralazine HCl (Apresoline) 25 mg Q4 PRN PO hypertension; Start 01/17/17 at 23: 30 Lorazepam 1 mg 1 mg Q4 PRN PO ANXIETY Last administered on 01/18/17 09:04; Admin Dose 1 MG; Start 01/18/17 at 08:00 Levofloxacin/ Dextrose (Levaquin 500mg/ D5W 100 ml (Pmx)) 100 ml @ 66.667 mls/ hr Q48H IVPB Last administered on 01/18/17 11:30; Admin Dose 66.667 MLS/HR; Start 01/18/17 at 11:00 Nicotine 1 patch 1 patch DAILY TRANSDERM Last administered on 01/18/17 11:31; Admin Dose 1 PATCH; Start 01/18/17 at 10:30 Vancomycin HCl 1.5 gm/Sodium Chloride 250 ml @ 83.333 mls/ hr NOW IVPB ; Start 01/18/17 at 14:30; Stop 01/18/17 at 22:00 Vancomycin HCl (Vancocin) 250 ml @ 125 mls/hr Q24H IVPB ; Start 01/19/17 at 16: 00 RADHA SHAH NP Jan 18, 2017 14:10
[2017-01-18] MEDS ORDERED: VANCOMYCIN 1.5 GM in SOD CHLORIDE 0.9% 250 ML IVPB SCH (14:30)
--- NOTE | 2017-01-18 14:41 | RADRPT ---
PROCEDURE: CT Brain without contrast. CLINICAL INDICATION: Infection of unknown etiology, encephalopathy. TECHNIQUE: A CT of the brain was performed on multidetector high-resolution CT scanner utilizing a xial sections from the skull base through the vertex without contrast. The scan was reviewed in sof t tissue brain and high frequency resolution bone algorithm windows. Images were reviewed on a high -resolution PACS workstation. One or more the following does reduction techniques were utilized: Aut omated exposure control, adjustment of the mA/ or kV according to patient's size, or use of iterativ e reconstruction technique. The exam CTDI = 44.63 mGy and the DLP = 720.23 mGy-cm. COMPARISON: None available. FINDINGS: The ventricles and sulci are mildly prominent indicative of volume loss. There is no intracranial he morrhage, mass effect or midline shift. No abnormal intra-axial or extra-axial fluid collections ar e seen. The [place]/white matter differentiation is preserved. There are mild scattered foci of hypoattenuation in the white matter, which are nonspecific in etiol ogy but likely reflect chronic small vessel ischemic changes. There are mild intracranial vascular calcifications consistent with atherosclerosis. The visualized paranasal sinuses demonstrate focal o pacification of anterior left ethmoid air cells. Subtotal opacification of the right mastoid air brittany ls and partial opacification of left mastoid air cells are noted. IMPRESSION: 1. No acute intracranial hemorrhage, transcortical infarction or mass effect. 2. Mild intracranial atherosclerosis and chronic small vessel ischemic changes. 3. Mild generalized cerebral volume loss. 4. Subtotal opacification of the right mastoid air cells and partial opacification of left mastoid air cells, correlate clinically for possible infection. RPTAT: HH .Abdulkadir Anderson MD, MD Date Time Electronically viewed and signed by .Abdulkadir Anderson MD, MD on 01/18/2017 14:41 .N/
--- NOTE | 2017-01-18 15:47 | RADRPT ---
PROCEDURE: CT Chest, Abdomen and Pelvis without contrast. CLINICAL INDICATION: Fever of known origin. Infection. TECHNIQUE: CT scan of the chest, abdomen, and pelvis without contrast was performed on a multi-det yonatan high-resolution CT scanner. The patient was scanned without intravenous contrast. Coronal an d sagittal reformatted images were obtained from the axial source images. Images were reviewed on a high-resolution PACS workstation. The total exam CTDI equals 9.87 mGy and the total exam DLP equals 801.26 mGY-cm. One or more of the following dose reduction techniques were used: - Automated exposure control. - Adjustment of the mA and/or kV according to patient size. - Use of iterative reconstruction technique. COMPARISON: None available FINDINGS: CT chest: The lungs are remarkable for a post surgical microstaple line with linear scarring in the anterolate ral right upper lung, extending to the right lung apex. Minimal subtle hazy ground-glass opacity se en along the posteromedial right upper lung, too small to characterize, and overwhelming likely neil gn. Similar appearing mild ground-glass opacification is seen in the posteromedial right lower lung as well, also too small to characterize and likely benign. Minimal low grade inflammatory bronchio litis is most likely. No other acute pneumonic infiltrate is seen. No pleural effusion, pulmonary e brianna, or pneumothorax is present. The central tracheobronchial tree is clear. The mediastinum is unremarkable without evidence for mass or lymphadenopathy. The vascular structur es of the mediastinum are normal in course and caliber. Aortic vascular calcifications and coronary artery calcifications are present. The heart size is normal without evidence for pericardial thicke gregor or effusion. The axillary regions, subpectoral regions, and supraclavicular regions are all unr emarkable. The surrounding chest wall is unremarkable. CT abdomen: The liver is normal in size and density without focal mass or intrahepatic biliary dilatation. The spleen is normal in size and homogeneous in density. The stomach is partially collapsed, but is otilio ssly unremarkable. The pancreas as visualized is shrunken and atrophic with pancreatic ductal dilat ation. A large calculus is seen in the proximal pancreatic duct adjacent to the ampulla region resu lting in the distal pancreatic ductal dilatation and parenchymal atrophy. The gallbladder and biliary tree are unremarkable and there is no evidence for biliary dilatation. The adrenal glands are symmetric and normal. The kidneys are symmetrically unremarkable as well. Mi ld benign senescent perinephric stranding and edema is present. No renal calculus or obstructive ur opathy or mass lesion is identified at this time. The aorta is of normal caliber. Aortic vascular c alcifications are present. There is no retroperitoneal lymphadenopathy. The anthony hepatis region i s clear. The bowel and mesentery, as visualized, are equally unremarkable. CT pelvis: The small bowel loops situated within the pelvis are unremarkable. The pelvic organs are remarkable for mild enlargement of the prostate gland which is impressing upon the base of the bladder. The p elvic sidewalls and inguinal regions are clear. The sigmoid colon and rectum are all unremarkable. No mass or adenopathy is seen. No significant free fluid is seen within the pelvis. No acute inflam mation is seen. The surrounding osseous structures are remarkable for degenerative enthesopathy of the spine. No os teolytic or osteoblastic lesion is detected. IMPRESSION: 1. No fluid collection or abscess is identified. 2. Minimal subtle low grade inflammatory bronchiolitis in the posteromedial periphery of the right upper and right lower lung. 3. Linear surgical microstaple line and scarring in the anterolateral right upper lung. 4. Vascular calcifications consistent with atherosclerosis. 5. Pancreatic ductal calcification with proximal ductal dilatation and parenchymal atrophy, chronic . 6. Vascular calcifications consistent with atherosclerosis. 7. Enlarged prostate gland. Correlate with PSA level. RPTAT: HMJB .William Hobson MD, MD Date Time Electronically viewed and signed by .William Hobson MD, MD on 01/18/2017 15:47 .B/
[2017-01-18 16:48] LABS: IMMUNOGLOBULIN G 318 mg/dl (700-1600)
[2017-01-18 16:49] LABS: IMMUNOGLOBULIN A < 40 mg/dl (70-400); IMMUNOGLOBULIN M < 25 mg/dl (40-230)
--- NOTE | 2017-01-18 17:17 | CONS ---
DATE OF ADMISSION: 01/17/2017 DATE OF CONSULTATION: 01/18/2017 RHEUMATOLOGY CONSULTATION: REFERRING PHYSICIAN: Gurwinder Triplett MD REASON FOR CONSULTATION: The patient with a history of Abbi's granulomatosis. HISTORY OF PRESENT ILLNESS: The patient is a 66-year-old male, originally from [place] and HPI is obtained through an natural resources specialist. The patient has a history of Abbi's granulomatosis diagnosed about 10 years ago at [facility] when he presented with abdominal pain, severe weight loss and anemia. He had an unusual case where Abbi's had both affected his small bowel and his kidneys. Therefore, diagnosis was obtained when he had a small bowel biopsy. He has also had multiple kidney biopsies. Abbi's has, in fact, affected his kidneys. 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 He also has a history of hypertension and gout. The patient was in his usual state of health until about 5 days prior to admission when he was noted to have fevers daily. They were between 37 and 39 degrees Celsius. He also started developing chills and a tremor. He does have a chronic cough but this had not worsened or changed. It was a dry cough. He does complain of generalized weakness, decreased p.o. intake and difficulty walking secondary to the weakness. He also had 1 episode of nausea and vomiting. He denies any rash, any chest pain, any shortness of breath, any hematuria, any bright red blood per rectum, any diarrhea or constipation. No oral ulcers. No sinus pressure or sinus pain. No seizures. He does, however, have per family confusion for the past 2 days. He came to the emergency department for evaluation of his ongoing fevers and weakness. In the ER, the patient had a normal white count of 10.1, creatinine of 2.3, which is above his baseline. Urine just showed some nitrites but it was leukocyte esterase negative. Chest x-ray showed no acute cardiopulmonary abnormality. Abdominal ultrasound showed no abnormality. MRI of the brain showed no abnormality. ESR and CRP were both low and normal. Also blood cultures have been negative for 1 day. The urine culture is also negative. Influenza A and B has been found to be negative. The patient also denies headaches or blurred vision. No numbness or tingling. After the patient's diagnosis of Abbi's granulomatosis 10 years ago as stated above, he had been on high-dose steroids and IV and then later p.o. steroids IV and had been started on Cytoxan. He was receiving Cytoxan after a while, every 6 months and then in the last 10 years, he was switched to every 6 months for Rituxan and that is what he has been on. His last Rituxan was 1 month ago IV. PAST MEDICAL HISTORY: Abbi's granulomatosis, affecting the small bowel and the kidney, chronic kidney disease, hypertension, gout, history of adenocarcinoma of the lung status post resection 9 years ago. PAST SURGICAL HISTORY: Adenocarcinoma of the lung resection, small-bowel biopsy, kidney biopsy, multiple, last was 3 years ago. MEDICATION: 1. Rituxan IV given every 6 months, last dose 1 month ago. 2. Colcrys 0.6 mg a day. 3. Uloric 40 mg a day. 4. Claritin 10 mg daily. 5. Benadryl 25 mg at bedtime. 6. Ambien 10 mg at bedtime p.r.n. 7. Cardizem 240 daily. 8. Colace 100 t.i.d. 9. Dexilant 60 daily. 10. Losartan 50 mg daily. SOCIAL MEDIA PROJECT MANAGER: His metal worker is who follows him and gives him his Rituxan. FAMILY HISTORY: Mother history of breast cancer. Father had [place] and at age 59. Last colonoscopy 7-8 years ago which was normal. SOCIAL HISTORY: Patient is a smoker. He smokes about half a pack a day. He has been a smoker for the past 50 years. Social alcohol. No history of IV drug use. REVIEW OF SYSTEMS: Per HPI. PHYSICAL EXAMINATION: VITAL SIGNS: Temperature 98.6, pulse is 70, respirations 20, BP 150/81, pulse oximetry 99. GENERAL: Alert, not oriented per translators who say that he answers questions with confusion of date and time. The patient is visibly shivering and trembling, somewhat warm to touch. HEENT: NC/AT. No evidence of thrush. No oral ulcers or lesions. NECK: No lymphadenopathy. No thyroid enlargement. HEART: S1, S2. Regular rate and rhythm. LUNGS: Clear bilaterally. ABDOMEN: Soft, slightly overweight, nontender. EXTREMITIES: No clubbing, cyanosis, no edema. MUSCULOSKELETAL: No joint effusions. SKIN: No rash. LABORATORY DATA: Currently white count is 12.5, elevated. Hemoglobin 12.9, hematocrit 35.6, platelet count 267. ESR 10. Chemistry shows sodium 134, potassium 4.0, chloride 103, bicarb 20, BUN 19, creatinine has gone down to 2.17, it was 2.3 on admission. Uric acid 5.1, calcium 8.8, phosphorus 2.7, mag 1.6. Total bili 0.3 and direct bili 0.3, AST 44, ALT 34, alk phos 79. C-reactive protein 0.9, total protein 5.8, albumin 3.6, globulin 2.2, albumin globulin ratio 1.6 and TSH of 1.3. Cultures, as stated in the HPI, urine culture is negative and blood culture is negative x1 day. IMPRESSION AND PLAN: The patient is a 66-year-old male with history of hypertension, adenocarcinoma of the lung, gout and 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 1. Fevers. Although they can always be secondary to an autoimmune condition, namely Abbi's in this case, at this point given the elevated white count and absence of any other problems in terms of lung or kidney or abdomen which is the patient's presenting issue with Abbi's, I agree with investigating for an infectious etiology for his fevers at this point, rather aggressively especially given his confusion. I agree with getting a lumbar puncture and evaluating that. Because his infections can become severely worsened with any kind of immunomodulatory medication such as prednisone, I am going to hold off on giving anything and we will follow him closely. If his condition worsens or they really find no etiology for his infections, we will consider giving him some prednisone. 2. Abbi's. The patient is currently on Rituxan which is an immunosuppressant. Again, this puts him at risk for opportunistic infections, so for this reason, I would consider him more at risk of having infection as a cause of a fever. Also his Abbi's has been very well controlled since his diagnosis, he has never had a flare, he has never been hospitalized, with Cytoxan and now Rituxan, I feel like it is unlikely that it would be a Abbi's flare. 3. History of gout. Uric acid levels are low. There is no joint swelling. No joint pain. Therefore, we will just follow him. 4. Chronic kidney disease. Currently with IV hydration his renal function appears to be improving. Again I would continue to follow this. If for some reason, it stops improving or it gets worse, then we may be more concerned that it may be a Abbi's issue. I would like to thank Dr. Triplett for having me participate in this patient's care. Please do not hesitate to call with any future concerns. We will continue to follow the patient. Dictated By: Miguel Rivera MD /[email or web address]/theodora /Document#: [id number]
[2017-01-18] MEDS ORDERED: LORAZEPAM 2 MG INJ IV PRN (17:30)
[2017-01-18] MEDS ORDERED: AMPICILLIN/SULB 3 GM/NS (PMX) 100 ML IVPB SCH (18:00)
[2017-01-18] MEDS: CEFTRIAXONE 2 GM/50 ML (PMX) 50 ML IVPB SCH (18:58)
[2017-01-18 20:12] VITALS: BP 180/89; RESP 20
[2017-01-18] MEDS: ACYCLOVIR 750 MG in SOD CHLORIDE 0.9% 150 ML IVPB SCH (20:23)
[2017-01-18] MEDS ORDERED: QUETIAPINE 25 MG TAB PO SCH (21:00)
[2017-01-18] MEDS ORDERED: ACYCLOVIR 500 MG in SOD CHLORIDE 0.9% 100 ML IVPB SCH ×2 (22:00)
[2017-01-18] MEDS: AMPICILLIN/SULB 3 GM/NS (PMX) 100 ML IVPB SCH (22:41)
[2017-01-19] VITALS (74 sets, daily range): BP systolic 88–185; BP diastolic 58–128; PULSE 72–117; RESP 12–37
[2017-01-19] MEDS: DEXTROSE 5%-0.9% NACL 1,000 ML IV SCH ×2 (01:02→10:00)
[2017-01-19] MEDS: hydrALAzine 20 MG INJ IV PRN (01:45)
[2017-01-19] MEDS ORDERED: ACCU-CHEK XX SCH (02:00)
[2017-01-19] MEDS ORDERED: METHYLPREDNISOLONE 125 MG INJ ONE (02:18)
[2017-01-19] MEDS ORDERED: NA BICARBONATE 8.4% 50 ML SYG IV ONE ×2 (02:30→07:30)
[2017-01-19] MEDS: AMPICILLIN/SULB 3 GM/NS (PMX) 100 ML IVPB SCH ×4 (02:34→19:50)
[2017-01-19] MEDS ORDERED: METHYLPREDNISOLONE 125 MG INJ IV SCH ×2 (02:41→06:00)
--- NOTE | 2017-01-19 02:48 | CONS ---
DATE OF ADMISSION: 01/17/2017 DATE OF CONSULTATION: 01/18/2017 TYPE OF CONSULTATION: Infectious Disease REQUESTING PHYSICIAN: Gurwinder Triplett MD I am seeing this patient for Dr. Ozzy Roberts. HISTORY OF PRESENT ILLNESS: The patient is a 66-year-old white male, Swedish, who was admitted on 01/17/2017 with a chief complaint of double vision and a 5-day history of fever, chills, malaise, fatigue, and progressive headache. He was also noted to have variations of orientation by his family members, although on admission he seemed to be quite accurate and verbal. He also had a history of fever with shaking chills. Upon arrival in the Emergency Room, he was noted to have a temperature of 101.7, white count was 12,500, polys 81, lymphocytes 7, monocytes 11. He was negative for influenza. Chest x-ray was negative. Urinalysis was negative for infection. Sedimentation rate was 10 mm/hr. His hemoglobin initially was 14 g and with rehydration fell to 12.9 g. REVIEW OF SYSTEMS: At the present time, the patient is unable to give a review of systems and is basically nonverbal. PAST MEDICAL HISTORY: A history of hypertension, gout, chronic obstructive pulmonary disease, tobacco use, lung resection 9 years ago for carcinoma of the lung, and he has stage III chronic kidney disease. He has been diagnosed with Abbi granulomatosis and has been treated every 6 months with Cytoxan and now has moved to getting Rituxan treatment every 6 months. SOCIAL HISTORY: The patient has tobacco use history. PHYSICAL EXAMINATION: GENERAL: Reveals an unshaven, apparently confused, white male lying in bed with the head of his bed elevated about 30 degrees. He has noisy inspiration and expiration. He expires between pursed lips with a puffing sound on expiration. He is able to follow simple commands such as taking applesauce to take a Tylenol because he has a temperature of 101.5 degrees. NOSE, MOUTH, AND THROAT: The patient cannot cooperate to open his mouth on command, but he can when trying to swallow by pursing his lips around the medicine cup. NECK: Rigid and cannot even approach to move his chin onto his chest. There is no stiffness to lateral rotation. CHEST: Clear to auscultation. HEART: Rapid and regular. ABDOMEN: Soft. No palpable organs or masses. EXTREMITIES: Examination reveals no edema, cyanosis or clubbing. There is no Brudzinski or Kernig sign present. The patient was not observed to move any of his extremities. INITIAL IMPRESSION: 1. Viral encephalopathy or aseptic meningitis. 2. Rule out subacute bacterial meningitis such as listeria monocytogene. 3. Pansinusitis. 4. Dehydration. 5. Chronic kidney disease, stage III. 6. Gout. 7. Chronic obstructive pulmonary disease. 8. Tobacco use. 9. Rule out hypogammaglobulinemia due to Rituxan. RECOMMENDATIONS: Proceed with LP. Continue vancomycin and ceftriaxone. Continue IV acyclovir and transfer to Intensive Care Unit. Thank you for referring this interesting patient Dr. Gurwinder Triplett. I am seeing this patient for Dr. Ozzy Roberts. Dictated By: Tatum Galvez MD /eladio/trev /Document#: [id number]
[2017-01-19] MEDS: LABETALOL HCL 20MG INJ IV PRN ×2 (03:35→06:50)
[2017-01-19 05:26] LABS: ABNORMAL IP MESSAGE 1; BASOPHIL # 0.1 10^3/ul (0.0-0.1); BASOPHILS % 0.4 % (0.0-2.0); HEMATOCRIT 37.6 % (42.0-52.0); HEMOGLOBIN 13.3 g/dl (14.0-18.0); LYMPHOCYTES # 0.4 10^3/ul (0.8-2.9); LYMPHOCYTES % 2.9 % (15.0-51.0); MEAN CORPUSCULAR HEMOGLOBIN 27.4 pg (29.0-33.0); MEAN CORPUSCULAR HGB CONC 35.4 g/dl (32.0-37.0); MEAN CORPUSCULAR VOLUME 77.5 fl (82.0-101.0); MEAN PLATELET VOLUME 10.4 fl (7.4-10.4); MONOCYTE # 0.5 10^3/ul (0.3-0.9); MONOCYTES % 3.2 % (0.0-11.0); NEUTROPHILS % 92.9 % (39.0-77.0); PLATELET COUNT 271 10^3/UL (140-415); POSITIVE DIFF @See below; RED BLOOD COUNT 4.85 10^6/ul (4.70-6.10); RED CELL DISTRIBUTION WIDTH 15.5 % (11.5-14.5); WHITE BLOOD COUNT 14.1 10^3/ul (4.8-10.8)
[2017-01-19 05:29] LABS: RETICULOCYTE COUNT % 1.3 % (0.5-1.5)
[2017-01-19] MEDS: PANTOPRAZOLE (EC) 40 MG TAB PO SCH (05:36)
[2017-01-19] MEDS: ACYCLOVIR 750 MG in SOD CHLORIDE 0.9% 150 ML IVPB SCH ×2 (05:41→18:15)
[2017-01-19 05:54] LABS: IRON 46 ug/dl (35-150)
[2017-01-19 06:02] LABS: CALCIUM 8.8 mg/dl (8.4-10.2)
[2017-01-19 06:03] LABS: MAGNESIUM 2.2 mg/dl (1.7-2.5); TOTAL IRON BINDING CAPACITY 243 ug/dl (241-421)
[2017-01-19] MEDS ORDERED: ATROPINE 1 MG/10 ML SYRINGE ONE (07:00)
[2017-01-19] MEDS ORDERED: ETOMIDATE 20 MG INJ ONE (07:00)
[2017-01-19] MEDS ORDERED: SUCCINYLCHOLINE CHLORIDE 100 MG/5 ML SYG IV ONE (07:00)
--- NOTE | 2017-01-19 07:32 | QN ---
Documentation Comment Endotracheal Intubation by me: Pre assessment performed. Pre-oxygenation performed with 100% oxygen RSI: Performed w/o complication or hypoxic events. Medications as ordered. Blade: MAC 4 Glidescope ET Tube: 7.5 cm Depth: 23 cm at the lip Intubation confirmed by colorimetric CO2, equal breath sounds, quiet over the stomach. Chest x-ray pending at this time MITCH TIRADO MD Jan 19, 2017 07:32
[2017-01-19] MEDS ORDERED: PROPOFOL 100 ML ONE (07:45)
[2017-01-19] MEDS: PROPOFOL 100 ML IV SCH ×2 (07:58→17:14)
[2017-01-19] MEDS ORDERED: LIDOCAINE 1% (MPF) 5 ML VIAL SC ONE (08:30)
[2017-01-19] MEDS ORDERED: GLUCAGON 1 MG INJ IM PRN (09:00)
[2017-01-19] MEDS ORDERED: GLUCOSE GEL 15 GRAM TUBE BUCCAL PRN (09:00)
[2017-01-19] MEDS ORDERED: GLUCOSE GEL 15 GRAM TUBE PO PRN ×2 (09:00)
[2017-01-19] MEDS ORDERED: DEXTROSE 50% 50 ML SYRINGE IV PRN ×2 (09:00)
--- NOTE | 2017-01-19 09:11 | RADRPT ---
PROCEDURE: XR Chest. CLINICAL INDICATION: Placement of enteric tube TECHNIQUE: Single frontal view of the chest was obtained. COMPARISON: Chest x-ray from 01/17/2017 FINDINGS: There has been interval placement of an endotracheal tube with its tip 4.6 cm above the carmen. There has been placement of an enteric tube with its tip and proximal side hole in the stomach. The heart and mediastinum are within normal limits. The lungs are clear. There is no significant pleural effusion or pneumothorax. IMPRESSION: Interval placement of an endotracheal tube and enteric tube, as above. No focal infiltrates or effusions. RPTAT: EE Physician Lianna Date Time Electronically viewed and signed by Physician Lianna on 01/19/2017 09:10 /
[2017-01-19] MEDS: FEBUXOSTAT 40 MG TABLET PO SCH (09:33)
[2017-01-19] MEDS: METOPROLOL 25 MG TAB PO SCH (09:34)
[2017-01-19] MEDS: DILTIAZEM (CD) 240 MG CAP PO SCH (09:34)
[2017-01-19] MEDS: DOCUSATE SODIUM 100 MG CAP PO SCH ×2 (09:35→12:57)
[2017-01-19] MEDS: HEPARIN 5,000 UNIT/0.5 ML VIAL SC SCH ×2 (09:49→21:00)
--- NOTE | 2017-01-19 11:00 | RADRPT ---
PROCEDURE: XR Chest. CLINICAL INDICATION: Check Line Placement TECHNIQUE: Single frontal view of the chest was obtained. COMPARISON: Chest x-ray from 01/19/2017 FINDINGS: There has been interval placement of a left-sided PICC line with its tip at the superior cavoatrial junction. The endotracheal tube and enteric tube are unchanged in position. The heart and mediastinum are within normal limits. The lungs are clear. There is no significant pleural effusion or pneumothorax. IMPRESSION: Interval placement of a left-sided PICC line with its tip at the superior cavoatrial junction. RPTAT: EE Physician Lianna Date Time Electronically viewed and signed by Physician Lianna on 01/19/2017 10:59 /
--- NOTE | 2017-01-19 11:20 | CONS ---
DATE OF ADMISSION: 01/17/2017 DATE OF CONSULTATION: 01/19/2017 REASON FOR CONSULTATION: Ventilator management. Thank you, Dr. Triplett, for this consultation. HISTORY OF PRESENT ILLNESS: This is a 66-year-old gentleman with a history of Jc's granulomatosis, a history of lung cancer status post resection 9 years ago, was apparently in his usual state of health up until a few days ago, then noted to have significant chills, complaining of generalized weakness, brought to the emergency room, and over the course of the past few days has had increasing confusion and altered mental status. Today, he had marked respiratory distress and concern for inability to protect airway, and was therefore, intubated and placed on mechanical ventilation. Since that time, he remains largely somnolent, likely secondary to medications given during the intubation process. PAST MEDICAL HISTORY: Abbi's granulomatosis, history of lung cancer, status post resection; hypertension, hyperlipidemia. MEDICATIONS: Per chart. ALLERGIES: NONE. SOCIAL HISTORY: He is an ex-smoker. No alcohol. No history of drug use. FAMILY HISTORY: Noncontributory. REVIEW OF SYSTEMS: Twelve point review of systems currently unable to perform. PHYSICAL EXAMINATION: GENERAL APPEARANCE: On examination, elderly-appearing gentleman, intubated, on mechanical ventilation. VITAL SIGNS: Currently afebrile. Pulse is 90, blood pressure 136/87, O2 sat 96 percent. FiO2 of 100 percent. Orally intubated. HEENT: Dry mucous membranes. Pupils equal, reactive to light. CARDIAC: S1, S2. No added sounds or murmurs. CHEST: Diminished air entry bilaterally. ABDOMEN: Soft, nontender. No guarding or rebound. EXTREMITIES: No cyanosis, no edema. NEUROLOGIC: Unable to assess. LABORATORY: White count 14.1, hemoglobin 13.3, platelets 271. BUN 20, creatinine 2.0. INR 0.89. Urinalysis unremarkable. Chest x-ray shows no significant infiltrates or effusions. Clear lung allen. CT of the chest shows no significant abnormalities. IMPRESSION: 1. Hypoxemic respiratory failure likely secondary to a change in neurological status with alveolar hypoventilation and inability to protect airway. 2. Acute encephalopathy of unclear etiology. Concern for a possible primary central nervous system disorder, such as West Nile virus or viral encephalitis. PLAN: 1. Continue mechanical ventilation. 2. Consider lumbar puncture with studies. 3. Consider empiric antiviral therapy. 4. DVT and GI prophylaxis. Dictated By: To Holder MD /eladio/jose /Document#: [id number]
--- NOTE | 2017-01-19 11:21 | RADRPT ---
PROCEDURE: US guidance for PICC line CLINICAL INDICATION: PICC line placement TECHNIQUE: Multiple real-time images were acquired of the patient's arm utilizing a high resolutio n transducer. This was performed by the PICC line nurse for venous access. COMPARISON: None FINDINGS: See impression. IMPRESSION: Ultrasound guidance for PICC line placement. There is a patent and compressible left upper extremity vein. RPTAT: AA Physician Lianna Date Time Electronically viewed and signed by Suhas Perry Physician on 01/19/2017 11:21 /
[2017-01-19 11:56] LABS: AADO2 Arterial 144.4 mmHg (7.0-24.0); Arterial Base Excess -6.9 mmol/L (-3.0-3); Arterial COHb 0.3 % (0.0-3.0); Arterial Fraction of Oxyhgb 98.4 % (93.0-99.0); Arterial HCO3 18.3 mmol/L (22.0-26.0); Arterial MetHb 0.4 % (0.0-1.5); Arterial Total Hemglobin 13.5 g/dl (12.0-18.0); MODE VENT - AC
[2017-01-19] MEDS: INSULIN ASPART [NOVOLOG] 3 ML PEN SC SCH ×4 (12:07→21:00)
[2017-01-19] MEDS: LORATADINE 10 MG TAB PO SCH (12:57)
[2017-01-19] MEDS: METHYLPREDNISOLONE 125 MG INJ IV SCH ×2 (12:57→22:05)
[2017-01-19] MEDS: NICOTINE (14 MG/24 HR) PATCH TRANSDERM SCH (12:57)
--- NOTE | 2017-01-19 13:10 | PN ---
DATE: 01/19/2017 SUBJECTIVE DATA: Patient was transferred to ICU yesterday and was intubated for airway protection. She is lying comfortably in bed. Is on Diprivan drip. OBJECTIVE DATA: VITAL SIGNS: Afebrile with a T-max yesterday 101.2, T-current 98. Pulse 90, respirations 23, blood pressure 118/82, saturation 100 on 100 FiO2. LABORATORY DATA: WBC 14.1, H and H 13.3 and 37.6, platelets 271, neutrophils 92.9. BUN 20, creatinine 2.0. MICROBIOLOGY: Blood cultures remain negative. Influenza swab came back negative. Nares swab negative. DIAGNOSTICS: 1. Chest x-ray this morning revealed no focal infiltrates or effusions. A CT of the brain on admission revealed no acute intracranial hemorrhage. Subtotal opacification of the right mastoid air cells and partial opacification of left mastoid air cells. Rule out infection. 2. CT of the chest revealed no fluid collection or abscess. Minimal supple low-grade inflammatory bronchiolitis in the posterior medial periphery of the right upper and right lower lung. Enlarged prostate gland. ANTIMICROBIALS: The patient is on: 1. IV vancomycin. 2. Unasyn. 3. Acyclovir. 4. Rocephin. INDWELLINGS: Patient has endotracheal tube, NG tube, Darden, left upper extremity PICC line. PHYSICAL EXAMINATION: GENERAL: This is a well-developed, fragile, elderly man, who is intubated, sedated, and in no distress. HEENT: Head atraumatic, normocephalic. Sclerae anicteric. Buccal mucosa dry. NECK: Supple. LUNGS: Chest rise symmetrical. Breath sounds clear. HEART: S1, S2. ABDOMEN: Soft, bowel sounds present. EXTREMITIES: No cyanosis. No edema. ASSESSMENT: 1. Severe sepsis. 2. Acute encephalopathy, rule out meningitis. 3. Acute respiratory failure, secondary to acute encephalopathy. 4. History of adenocarcinoma of the lung. 5. History of Abbi's disease. 6. Hypertension. 7. History of hypertension and gout. 8. Chronic kidney disease. PLAN: Stable on vent. Pending lumbar puncture and brain MRI. Continue present care, antibiotics. Follow recommendations of consultants. MIKALA family at bedside MIKALA RN Dictated By: Giancarlo Hodges NP /eladio/jose /Document#: [id number] MTDD
[2017-01-19] MEDS: SOD CHLORIDE 0.9% 1,000 ML IV SCH (13:30)
--- NOTE | 2017-01-19 13:45 | CONS ---
Date/Time of Note Date/Time of Note DATE: 01/19/17 TIME: 13:38 Consult Date/Type/Reason Admit Date/Time Jan 17, 2017 at 17:33 Initial Consult Date Type of Consultation: Rheumatology Subjective Patient was in respiratory distress earlier this morning and was intubated and transferred to the ICU. Objective Vital Signs Date Time Temp Pulse Resp B/P Pulse Ox O2 Delivery O2 Flow Rate FiO2 01/19/17 12:30 94 23 110/75 94 01/19/17 12:00 99.4 Mechanical Ventilator 01/19/17 11:40 100 01/19/17 01:30 1.0 Intake and Output 01/18/17 01/18/17 01/19/17 14:59 22:59 06:59 Intake Total 200 ml 2685 ml 1830 ml Output Total 2555 ml 1716 ml Balance 200 ml 130 ml 114 ml Exam GENERAL: Intubated, sedated; somewhat warm to touch. HEENT: ET Tube in place NECK: No lymphadenopathy. No thyroid enlargement. HEART: S1, S2. Regular rate and rhythm. LUNGS: Clear bilaterally. ABDOMEN: Soft, slightly overweight, nontender. EXTREMITIES: No clubbing, cyanosis, no edema. MUSCULOSKELETAL: No joint effusions. SKIN: No rash. Results/Medications Result Diagram: 01/19/1744601/19/17446 Results 24 hrs Laboratory Tests Test 01/18/17 15:32 01/19/17 00:59 01/19/17 02:23 01/19/17 04:47 Immunoglobulin A < 40 L Immunoglobulin G 318 L Immunoglobulin M < 25 L Bedside Glucose 127 144 White Blood Count 14.1 H Red Blood Count 4.85 Hemoglobin 13.3 L Hematocrit 37.6 L Mean Corpuscular Volume 77.5 L Mean Corpuscular Hemoglobin 27.4 L Mean Corpuscular Hemoglobin Concent 35.4 Red Cell Distribution Width 15.5 H Platelet Count 271 Mean Platelet Volume 10.4 Neutrophils % 92.9 H Lymphocytes % 2.9 L Monocytes % 3.2 Eosinophils % 0.0 Basophils % 0.4 Nucleated Red Blood Cells % 0.0 Neutrophils # (Manual) 13.1 H Lymphocytes # 0.4 L Monocytes # 0.5 Eosinophils # 0.0 Basophils # 0.1 Nucleated Red Blood Cells # 0.0 Absolute Reticulocyte Count 0.063 Percent Reticulocyte Count 1.3 Sodium Level 134 L Potassium Level 4.0 Chloride Level 101 Carbon Dioxide Level 17 L Anion Gap 20 H Blood Urea Nitrogen 20 Creatinine 2.00 H Glucose Level 191 # Calcium Level 8.8 Phosphorus Level 3.0 Magnesium Level 2.2 Iron Level 46 Total Iron Binding Capacity 243 Percent Iron Saturation 19 L Vitamin B12 Level 776 Folate 13.4 HIV (1&2) Antibody NEGATIVE Test 01/19/17 07:19 01/19/17 10:00 01/19/17 12:03 01/19/17 12:56 Bedside Glucose 244 H 230 H 226 H Blood Gas Specimen Source Blood arterial Arterial Blood Date Drawn 01/19/2017 11:46:55 AM Arterial Blood pH (Temp corrected) 7.325 L Arterial Blood pCO2 (Temp correct) 36.0 Arterial Blood pO2 (Temp corrected) 532.6 H Arterial Blood HCO3 18.3 L Arterial Blood Base Excess -6.9 L Arterial Blood Oxygen Saturation 99.1 H George Test N/A Arterial Blood Gas Puncture Site Right Brachial Arterial Blood Carboxyhemoglobin 0.3 Arterial Blood Methemoglobin 0.4 Blood Gas A-a O2 Differential 144.4 H Oxyhemoglobin Percent 98.4 Total Hemoglobin 13.5 Blood Gas Temperature 37.0 Blood Gas Respiration Rate 20.0 Blood Gas Actual Respiration Rate 25 Blood Gas Modality VENT - AC FiO2 100.0 Blood Gas Tidal Volume 500.0 Blood Gas Low PEEP Setting 5.0 Blood Gas Notified Whom TM Blood Gas Notified Time 01/19/2017 11:56:33 AM Medications Current Medications Ondansetron HCl (Zofran Inj) 4 mg Q6H PRN IV NAUSEA AND/OR VOMITING; Start 01/17 at 14:30 Acetaminophen/ Hydrocodone Bitart ([place] (5/325)) 1 tab Q6H PRN PO MODERATE PAIN LEVEL 4-6; Start 01/17/17 at 14:30 Morphine Sulfate (morphine) 2 mg Q4H PRN IV SEVERE PAIN LEVEL 7-10; Start at 14:30 Docusate Sodium (Colace) 100 mg Q12H PRN PO CONSTIPATION; Start 01/17/17 at 14: 30 Magnesium Hydroxide (Milk Of Mag) 30 ml DAILY PRN PO CONSTIPATION; Start at 14:30 Pantoprazole (Protonix Tab) 40 mg DAILY@06 PO Last administered on 9/4/17at 06: 58; Admin Dose 40 MG; Start 01/18/17 at 06:00 Heparin Sodium (Porcine) (Heparin (5000 Units/0.5 ml)) 5,000 unit Q12 SC Last administered on 01/19/17 09:49; Admin Dose 5,000 UNIT; Start 01/17/17 at 21:00 Diphenhydramine HCl (Benadryl) 25 mg QHS PRN PO ITCHING; Start 01/17/17 at 14:30 Docusate Sodium (Colace) 100 mg TID PO Last administered on 01/19/17 12:57; Admin Dose 100 MG; Start 01/17/17 at 21:00 Febuxostat (Uloric) 40 mg DAILY PO Last administered on 01/19/17 09:33; Admin Dose 40 MG; Start 01/18/17 at 09:00 Loratadine (Claritin) 10 mg DAILY PO Last administered on 01/19/17 12:57; Admin Dose 10 MG; Start 01/18/17 at 09:00 Zolpidem Tartrate (Ambien) 10 mg QHS PRN PO INSOMNIA Last administered on 01:48; Admin Dose 10 MG; Start 01/17/17 at 14:30 Metoprolol Tartrate (Lopressor) 25 mg BID PO Last administered on 01/19/17 09: 34; Admin Dose 25 MG; Start 01/17/17 at 21:00 Diphenhydramine HCl (Benadryl) 25 mg Q4H PRN IV CHILLS; Start 01/17/17 at 18:30 Diltiazem HCl (Cardizem Cd) 240 mg DAILY PO Last administered on 01/19/17 09:34 ; Admin Dose 240 MG; Start 01/17/17 at 18:30 Acetaminophen (Tylenol Tab) 1,000 mg Q4 PRN PO PAIN LEVEL 1-3 OR FEVER/chills Last administered on 01/18/17 23:58; Admin Dose 1,000 MG; Start 01/18/17 at 01:00 Hydralazine HCl (Apresoline) 25 mg Q4 PRN PO hypertension Last administered on 01/18/17 20:24; Admin Dose 25 MG; Start 01/17/17 at 23:30 Lorazepam (Ativan) 1 mg Q4 PRN PO ANXIETY Last administered on 01/18/17 22:36; Admin Dose 1 MG; Start 01/18/17 at 08:00 Nicotine 1 patch 1 patch DAILY TRANSDERM Last administered on 01/19/17 12:57; Admin Dose 1 PATCH; Start 01/18/17 at 10:30 Vancomycin HCl 250 ml @ 125 mls/hr Q24H IVPB ; Start 01/19/17 at 16:00 Ceftriaxone Sodium (Rocephin) 50 ml @ 100 mls/hr Q24H IVPB Last administered on 01/18/17 18:58; Admin Dose 100 MLS/HR; Start 01/18/17 at 17:00 Quetiapine Fumarate (Seroquel) 25 mg QHS PO Last administered on 01/18/17 20:23 ; Admin Dose 25 MG; Start 01/18/17 at 21:00 Lorazepam 2 mg 2 mg Q6H PRN IV before LP and MRI; Start 01/18/17 at 17:30; Stop 01/19/17 at 17:29 Acyclovir 750 mg/ Sodium Chloride 150 ml @ 100 mls/hr Q12H IVPB Last administered on 01/19/17 05:41; Admin Dose 100 MLS/HR; Start 01/18/17 at 18:00 Ampicillin Sodium/ Sulbactam Sodium 100 ml @ 100 mls/hr Q6H IVPB Last administered on 01/19/17 09:30; Admin Dose 100 MLS/HR; Start 01/18/17 at 20:00 Acetaminophen (Ofirmev 1000mg/ 100ml Iv) 100 ml @ 400 mls/hr Q4 PRN IVPB FEVER GREATER THAN 100.6; Start 01/19/17 at 00:30 Hydralazine HCl (Apresoline) 10 mg Q4H PRN IV hypertension Last administered on 01/19/17 01:45; Admin Dose 10 MG; Start 01/19/17 at 01:00 Labetalol HCl (Labetalol) 20 mg Q3 PRN IV ELEVATED BLOOD PRESSURE; Start at 02:30 Labetalol HCl (Labetalol) 10 mg Q3 PRN IV ELEVATED BLOOD PRESSURE Last administered on 01/19/17 06:50; Admin Dose 10 MG; Start 01/19/17 at 02:30 Methylprednisolone Sodium Succinate 60 mg 60 mg Q8 IV Last administered on 12:57; Admin Dose 60 MG; Start 01/19/17 at 13:00 Propofol (Diprivan) 100 ml @ 2.295 mls/ hr Q12H IV Last administered on 07:58; Admin Dose 2.295 MLS/HR; Start 01/19/17 at 08:00 Diagnostic Test (Pha) (Accu-Chek) 1 ea 02 XX ; Start 01/20/17 at 02:00 Insulin Aspart (Novolog Insulin Pen) NOVOLOG *MILD* ALGORI... Q4 SC Last administered on 01/19/17 13:06; Admin Dose 3 UNIT; Start 01/19/17 at 09:00 Miscellaneous Information 1 ea NOTE XX ; Start 01/19/17 at 09:00 Glucose (Glutose) 15 gm Q15M PRN PO DECREASED GLUCOSE; Start 01/19/17 at 09:00 Glucose (Glutose) 22.5 gm Q15M PRN PO DECREASED GLUCOSE; Start 01/19/17 at 09:00 Dextrose (D50w Syringe) 25 ml Q15M PRN IV DECREASED GLUCOSE; Start 01/19/17 at 09:00 Dextrose (D50w Syringe) 50 ml Q15M PRN IV DECREASED GLUCOSE; Start 01/19/17 at 09:00 Glucagon (Glucagen) 1 mg Q15M PRN IM DECREASED GLUCOSE; Start 01/19/17 at 09:00 Glucose (Glutose) 15 gm Q15M PRN BUCCAL DECREASED GLUCOSE; Start 01/19/17 at 09: 00 IV Flush 10 ml 10 ml PRN PRN IV FLUSH LINE; Start 01/19/17 at 12:00 Sodium Chloride (NS) 1,000 ml @ 60 mls/hr [id number] IV ; Start 01/19/17 at 13:30 Assessment/Plan Chief Complaint/Hosp Course IMPRESSION AND PLAN: The patient is a 66-year-old male with history of hypertension, adenocarcinoma of the lung, gout and 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 He has been intubated after having some respiratory distress that pulmonary feels is more central in etioogy 1. Respiratory failure- most likely central in Etiology.To have lumbar puncture today. 2. Fevers. Although they can always be secondary to an autoimmune condition, namely Abbi's in this case, at this point given the elevated white count and absence of any other problems in terms of lung or kidney or abdomen which is the patient's presenting issue with Abbi's, I agree with investigating for an infectious etiology for his fevers at this point, rather aggressively especially given his confusion. I agree with getting a lumbar puncture and evaluating that. Because his infections can become severely worsened with any kind of immunomodulatory medication such as prednisone, I am going to hold off on giving anything and we will follow him closely. If his condition worsens or they really find no etiology for his infections, we will consider giving him some prednisone. 3. Abbi's. The patient is currently on Rituxan which is an immunosuppressant. Again, this puts him at risk for opportunistic infections, so for this reason, I would consider him more at risk of having infection as a cause of a fever. Also his Abbi's has been very well controlled since his diagnosis, he has never had a flare, he has never been hospitalized, with Cytoxan and now Rituxan, I feel like it is unlikely that it would be a Abbi's flare. 4 History of gout. Uric acid levels are low. There is no joint swelling. No joint pain. Therefore, we will just follow him. 5 Chronic kidney disease. Currently with IV hydration his renal function appears to be improving. Again I would continue to follow this. If for some reason, it stops improving or it gets worse, then we may be more concerned that it may be a Abbi's issue. I Problems: SHIRLEY MORALES MD Jan 19, 2017 13:45
--- NOTE | 2017-01-19 13:52 | PN ---
DATE: 01/19/2017 SUBJECTIVE DATA: Patient is seen. Unfortunately, yesterday, patient continues to be encephalopathic and continues to have fevers at night. saw the patient. The patient was noted to be more encephalopathic. Patient was kept n.p.o. and was transferred to the intensive care unit. I also was informed that he has stridor, but overall the patient's vitals were stable, just he was hypotensive. Labetalol was ordered. I started him on Solu-Medrol because of the stridor and instructed the nurses to be very vigilant regarding respiration as to intubate him if necessary. This morning, patient became bradycardic and hypoxic. ER physician was called, and patient was intubated. Patient was placed on 100 percent FiO2. Patient is now hemodynamically stable. Patient is being treated for both viral and bacterial meningitis, awaiting lumbar puncture, as well, awaiting MRI of the brain. PHYSICAL EXAMINATION: VITAL SIGNS: Temperature is 97.6, pulse 95, respirations 20. Blood pressure was earlier 172/98. O2 saturation is 100 percent on 100 percent FiO2. GENERAL: Patient is sedated on propofol. HEENT: Pupil is 3 mm. CARDIOVASCULAR: Positive S1, S2. LUNGS: Clear bilaterally. Possible faint rhonchi bilaterally. ABDOMEN: Soft, nontender. EXTREMITIES: No clubbing, cyanosis or edema. GENITOURINARY: Darden is placed. LABORATORY AND DIAGNOSTIC DATA: White count increased to 14.1, but I did give him a dose of steroids. Hemoglobin is 13.3, hematocrit 38, platelet count of 271,000, neutrophil count 93 percent, eosinophil 3 percent. Retic count is 0.06. Chemistry: Sodium is 134, potassium 4.0, chloride 101, bicarb 17, BUN 20, creatinine improved to 2.0, glucose 191. I switched his fluids yesterday from normal saline to D5 normal saline to prevent hypoglycemia. Iron is 46, TIBC 243, percent saturation slightly low at 19, B12 of 776. HIV negative. IgG, IgA and IgM all low. Cultures: Blood cultures all negative. Influenza A and B negative. Urine culture negative. MRSA screening negative. MEDICATIONS: 1. Vancomycin IV, dose per pharmacy. 2. Solu-Medrol 60 IV q.8. 3. Propofol as directed. 4. Labetalol p.r.n. 5. D5 normal saline at 60 mL/hour. 6. Accu-Chek q.4 hours. 7. Hydralazine 10 mg IV q.4 p.r.n. 8. Tylenol p.r.n. 9. Seroquel 25 at night. 10. Ampicillin or Unasyn IV q.6 hours. 11. Acyclovir IV q.12 hours per pharmacy, renally dosed. 12. Ativan 2 mg p.r.n. before OLP, but right now, there is no need for Ativan. 13. Rocephin 1 g q.24 hours, renally dosed. 14. Nicotine patch 14 mg daily. 15. DuoNeb p.r.n. 16. Ativan p.r.n. 17. Uloric 40 mg daily. 18. Claritin 10 mg daily. 19. Ativan 1 mg q.4 hour p.r.n. anxiety. 20. Protonix 40 mg daily. 21. Tylenol p.r.n. 22. Hydralazine p.r.n. orally. 23. Heparin 5000 units subcu q.12 hours. 24. Colace 100 t.i.d. 25. Lopressor 25 b.i.d. 26. Benadryl p.r.n. 27. Cardizem CD 240 daily. 28. Zofran p.r.n. 29. [place] p.r.n. 30. Morphine p.r.n. 31. p.r.n, 32. Benadryl and Ambien p.r.n. IMAGING: Tests that were done yesterday, including brain CT, show no acute intracranial hemorrhage, transcortical infarction or mass effect, mild intracranial atherosclerosis and chronic small vessel ischemic changes, mild generalized cerebral volume loss, subtotal opacification of the right mastoid air cells and partial opacification of left mastoid air cells, correlate clinically with possible infection. CT scan of the chest, abdomen and pelvis was done as well yesterday, shows no fluid collection or abscess is identified. There is minimal septal low- grade inflammatory bronchiolitis in the posteromedial periphery of the right upper and right lower lung. There is linear surgical micro staple line and scar in the anterolateral right upper lung. There is vascular calcification consistent with atherosclerosis with pancreatic ductal calcification with proximal ductal dilatation and parenchymal atrophy, chronic, vascular calcifications seen with atherosclerosis and large prostate gland, correlate with PSA level. ASSESSMENT AND PLAN: This is a 66-year-old male with history of Abbi granulomatosis, chronic kidney disease, nicotine dependency, hypertension, who presented with 1 week of fever, chills, generalized weakness and decreased p.o. intake. 1. Febrile illness very concerning for meningitis, bacterial versus viral. Patient is being treated. Infectious Disease is following closely. Awaiting lumbar puncture. Continue supportive care for now. 2. Encephalopathy concerning for meningitis. Lumbar puncture to be done. Follow up with all studies. Infectious Disease to follow. Patient is awaiting MRI of the brain. I started him on steroids: One, because of his stridor and second in the setting of meningitis causing inflammation. Rheumatology, steroids may be beneficial in a fever related to vasculitis. 3. Abbi granulomatosis. Follow up with Dr. Rivera. I appreciate recommendations. 4. Continue Protonix for gastrointestinal prophylaxis and heparin for deep venous thrombosis prophylaxis. 5. Patient will be sedated with propofol. 6. Respiratory. Pulmonary to follow. 7. Renal. Kidney function improved, still with mild hyponatremia. Try to avoid D5 or hypotonic solutions. Patient is currently on D5 normal saline. 8. Cardiovascular, stable. Blood pressure medications can be given via nasogastric tube. 9. Peripherally inserted central catheter was ordered. Case discussed with the family, Dr. Collins Killian, who is also a neurologist. He is aware of plan of care, the treatment plan and patient's current condition. Condition is guarded. We will follow closely. I have spoken with Radiology and informed them regarding lumbar puncture. This is currently being arranged and will be done soon. We will follow. Dictated By: Gurwinder Triplett MD /[email or web address] /Document#: [id number] LORNE
[2017-01-19] MEDS ORDERED: LIDOCAINE 1% (MDV) 20 ML INJ ONE (14:26)
[2017-01-19] MEDS: VANCOMYCIN 1 GM in NS 250 ML IVPB SCH (15:49)
[2017-01-19] MEDS ORDERED: NORepinephrine 8MG/250 ML (PMX 250 ML IV SCH (16:00)
--- NOTE | 2017-01-19 16:33 | RADRPT ---
PROCEDURE: FLUOROSCOPIC GUIDED LUMBAR PUNCTURE CLINICAL INDICATION: meningitis FLUOROSCOPY TIME: 0.4 minute TECHNIQUE: After the risks and benefits of the procedure were explained to the patient, informed consent was ob tained. Risks include bleeding, infection, and headache. A procedural pause was performed to ensure that the correct procedure was being performed on the correct patient. Fluoroscopy was utilized to d etermine the best entry site. The patient's skin was then prepped and draped in the usual sterile fa shion. 1% lidocaine was utilized for local anesthesia. Under direct fluoroscopic visualization, the spinal needle was advanced into the thecal sac via translaminar approach at the L2-3 level. Clear CS F returned. A total of 17 cc were collected and sent to the laboratory for analysis. The needle was removed. The patient tolerated the procedure well and there were no immediate complications. COMPARISON: None FINDINGS: CSF collected: 17 cc of clear fluid. RPTAT: AA IMPRESSION: Status post fluoroscopically guided lumbar puncture. Physician Lianna Date Time Electronically viewed and signed by Physician Lianna on 01/19/2017 16:32 AN
[2017-01-19] MEDS: CEFTRIAXONE 2 GM/50 ML (PMX) 50 ML IVPB SCH (17:21)
[2017-01-19 19:26] LABS: PSA, FREE <0.1 ng/mL
[2017-01-19] MEDS ORDERED: ZOLPIDEM 5 MG TAB NGT PRN (20:30)
[2017-01-19] MEDS ORDERED: MAGNESIUM HYDROXIDE 30ML CUP NGT PRN (20:30)
[2017-01-19] MEDS ORDERED: LORAZEPAM 1 MG TAB NGT PRN (20:30)
[2017-01-19] MEDS ORDERED: ACETAMINOPHEN 650MG/20.3ML CUP NGT PRN (20:30)
[2017-01-19] MEDS ORDERED: DOCUSATE SODIUM 10 MG/ML (10ML CUP) ONE (20:45)
--- NOTE | 2017-01-19 20:57 | RADRPT ---
Echocardiogram Report Patient Name: LANDY CALHOUN Gender: Male Date: 1950 Study Date: 19-Jan-2017 Paper Cup Machine Tender: Za Mckenzie RDCS Location: [id number] Ref. Physician: BILLY DANIELS Quality: Adequate Procedures: Transthoracic echocardiogram with complete 2D, M-Mode, and doppler examination. Indications: Fevers. 2D/M Mode Doppler Measurement Value Normal Ranges Measurement Value Normal Ranges LVIDd 2D 4.1 3.5 - 5.6 cm AV Peak Inocencio 1.2 m/sec LVIDs 2D 2.2 2.1 - 4.1 cm AV Peak PG 5.0 mmHg FS 2D 47.3 % LVOT Peak Inocencio 1.1 m/sec LVPWd 2D 1.1 0.6 - 1.1 cm LVOT Peak PG 5.0 mmHg IVSd 2D 1.4 0.6 - 1.1 cm MV E Peak Inocencio 0.5 m/sec IVS/LVPW 2D 1.3 MV A Peak Inocencio 0.8 m/sec AoR Diam 2D 3.4 2.0 - 3.7 cm MV E/A 0.6 LA/Ao 2D 1 0 - 1 MV Decel Time 99 msec EDV 2D 71.0 cm3 MV E/A 0.6 ESV 2D 10.4 cm3 LA Dimen 2D 3.2 2.3 - 4.0 cm Findings Left Ventricle: Normal left ventricular systolic function. Normal left ventricular cavity size. Moderate concentric left ventricular hypertrophy. Ejection fraction is visually estimated at 65 %. Tissue Doppler/Mitral Doppler indices are consistent with impaired relaxation (Stage I diastolic dysfunction). Right Ventricle: Normal right ventricular size. Normal right ventricular systolic function. Left Atrium: The left atrium is normal in size. Right Atrium: The right atrium is normal in size. Mitral Valve: Normal appearance and function of the mitral valve with trace physiologic regurgitation. Aortic Valve: No hemodynamically significant aortic stenosis by doppler. Aortic cusps appear mildly calcified. Mild aortic valve regurgitation. Tricuspid Valve: Normal appearance of the tricuspid valve. Unable to obtain RVSP due to minimal presence of tricuspid regurgitation. Pulmonic Valve: Normal pulmonic valve appearance. Pericardium: Normal pericardium with no significant pericardial effusion. Aorta: Normal aortic root. IVC: Normal IVC with respiratory collapse, however patient on ventilator. Conclusions 1.Normal left ventricular systolic function. Normal left ventricular cavity size. Moderate concentric left ventricular hypertrophy. Ejection fraction is visually estimated at 65 %. Tissue Doppler/Mitral Doppler indices are consistent with impaired relaxation (Stage I diastolic dysfunction). 2.Normal appearance and function of the mitral valve with trace physiologic regurgitation. 3.No hemodynamically significant aortic stenosis by doppler. Aortic cusps appear mildly calcified. Mild aortic valve regurgitation. 4.Normal appearance of the tricuspid valve. Unable to obtain RVSP due to minimal presence of tricuspid regurgitation. Electronically Signed By: Brian Dugan 19-Jan-2017 20:57:19 -0700 Patient Name: LANDY CALHOUN Study Date: 19-Jan-2017 [id number]
[2017-01-19] MEDS ORDERED: QUETIAPINE 25 MG TAB NGT SCH (21:00)
[2017-01-19] MEDS ORDERED: DIPHENHYDRAMINE 2.5 MG/ML 5ML CUP NGT PRN (21:00)
[2017-01-19 21:11] LABS: CSF COLOR COLORLESS; CSF VOLUME 14.5 ml; CSF#TUBE COUNT TUBE#1; CSF#TUBES REC'D 3
[2017-01-19 21:12] LABS: CSF COLOR COLORLESS; CSF VOLUME 14.5 ml; CSF#TUBE COUNT TUBE#3; CSF#TUBES REC'D 3
[2017-01-19] MEDS: FLUCONAZOLE 200 MG/NS (PMX) 100 ML IVPB SCH (21:12)
[2017-01-19] MEDS: DOCUSATE SODIUM 10 MG/ML (10ML CUP) NGT SCH (21:13)
[2017-01-19 21:33] LABS: GLUCOSE,CSF 130 mg/dl (50-80)
[2017-01-19] MEDS: METOPROLOL 25 MG TAB NGT SCH (21:59)
[2017-01-19] MEDS ORDERED: LORAZEPAM 2 MG INJ ONE (23:22)
[2017-01-20] VITALS (83 sets, daily range): BP systolic 82–159; BP diastolic 58–99; PULSE 66–106; RESP 15–31
[2017-01-20] MEDS: LORAZEPAM 2 MG INJ IV PRN
--- NOTE | 2017-01-20 01:04 | RADRPT ---
PROCEDURE: MR Brain without contrast. CLINICAL INDICATION: Diplopia. TECHNIQUE: An MRI of the brain was performed without intravenous contrast. Axial diffusion, coron al T2* GRE, axial T2 FLAIR, axial T2, and sagittal and axial T1 FLAIR images obtained. The examinat ion was performed on a 3 Kala MRI scanner. COMPARISON: Brain CT dated 01/18/2017 FINDINGS: There is mild generalized volume loss without evidence of hydrocephalus or mass effect. No acute in tracranial hemorrhage or extra-axial collection is seen. There is no acute infarction. Scattered T2 FLAIR hyperintensities in the supratentorial white matter are nonspecific but likely represent the sequela of mild chronic microvascular ischemic disease. No abnormal gradient echo susceptibility art ifact is identified within the brain parenchyma. There are normal flow voids in the proximal intrac ranial arteries. The midline structures are unremarkable. There is minimal mucosal thickening in the paranasal sinuses. Fluid opacification of the bilateral mastoid air cells is noted. The extracranial soft tissues and osseous structures are unremarkable. IMPRESSION: 1. No acute intracranial pathology. 2. Mild generalized volume loss. 3. Mild chronic microvascular ischemic changes. 4. Fluid opacification of the bilateral mastoid air cells, nonspecific but possibly representing ma stoiditis. RPTAT: HTAR .Perez Valderrama MD, MD Date Time Electronically viewed and signed by .Perez Valderrama MD, on 01/20/2017 01:04 .R/
[2017-01-20] MEDS: INSULIN ASPART [NOVOLOG] 3 ML PEN SC SCH ×6 (01:26→21:00)
[2017-01-20] MEDS: AMPICILLIN/SULB 3 GM/NS (PMX) 100 ML IVPB SCH ×4 (01:30→19:38)
[2017-01-20] MEDS: PROPOFOL 100 ML IV SCH ×2 (01:30→14:57)
[2017-01-20] MEDS: ACCU-CHEK XX SCH (02:00)
[2017-01-20] MEDS: SOD CHLORIDE 0.9% 1,000 ML IV SCH ×2 (04:08→22:11)
[2017-01-20] MEDS: CEFTRIAXONE 2 GM/50 ML (PMX) 50 ML IVPB SCH ×2 (04:30→17:31)
[2017-01-20 05:12] LABS: ABNORMAL IP MESSAGE 1; BASOPHILS % 0.1 % (0.0-2.0); HEMATOCRIT 31.3 % (42.0-52.0); HEMOGLOBIN 11.1 g/dl (14.0-18.0); LYMPHOCYTES # 0.4 10^3/ul (0.8-2.9); LYMPHOCYTES % 2.5 % (15.0-51.0); MEAN CORPUSCULAR HEMOGLOBIN 27.5 pg (29.0-33.0); MEAN CORPUSCULAR HGB CONC 35.5 g/dl (32.0-37.0); MEAN CORPUSCULAR VOLUME 77.7 fl (82.0-101.0); MEAN PLATELET VOLUME 10.9 fl (7.4-10.4); MONOCYTE # 0.5 10^3/ul (0.3-0.9); MONOCYTES % 2.9 % (0.0-11.0); NEUTROPHILS % 93.8 % (39.0-77.0); PLATELET COUNT 242 10^3/UL (140-415); POSITIVE DIFF @See below; RED BLOOD COUNT 4.03 10^6/ul (4.70-6.10); RED CELL DISTRIBUTION WIDTH 15.9 % (11.5-14.5); WHITE BLOOD COUNT 15.5 10^3/ul (4.8-10.8)
[2017-01-20 05:38] LABS: ALBUMIN 3.2 g/dl (3.3-4.9); ALBUMIN/GLOBULIN RATIO 1.6; CALCIUM 8.6 mg/dl (8.4-10.2); CREATININE 2.08 mg/dl (0.61-1.24); POTASSIUM 4.1 mmol/L (3.5-5.1); TOTAL PROTEIN 5.2 g/dl (6.1-8.1)
[2017-01-20 05:40] LABS: MAGNESIUM 2.3 mg/dl (1.7-2.5); PHOSPHORUS 4.1 mg/dl (2.5-4.9)
[2017-01-20] MEDS: ACYCLOVIR 750 MG in SOD CHLORIDE 0.9% 150 ML IVPB SCH ×2 (05:40→18:20)
[2017-01-20] MEDS: METHYLPREDNISOLONE 125 MG INJ IV SCH (05:40)
[2017-01-20] MEDS: FEBUXOSTAT 40 MG TABLET PO SCH (08:17)
[2017-01-20] MEDS: DOCUSATE SODIUM 10 MG/ML (10ML CUP) NGT SCH ×3 (08:18→20:43)
[2017-01-20] MEDS: DILTIAZEM (CD) 240 MG CAP PO SCH (08:18)
[2017-01-20] MEDS: NICOTINE (14 MG/24 HR) PATCH TRANSDERM SCH (08:18)
[2017-01-20] MEDS: LORATADINE 10 MG TAB NGT SCH (08:19)
[2017-01-20] MEDS: METOPROLOL 25 MG TAB NGT SCH ×2 (08:24→20:46)
[2017-01-20] MEDS ORDERED: FAMOTIDINE 20 MG INJ IV SCH (09:00)
[2017-01-20 09:21] LABS: AADO2 Arterial 183.2 mmHg (7.0-24.0); Allen Test ACCEPTAB; Arterial Base Excess -6.6 mmol/L (-3.0-3); Arterial COHb 0.3 % (0.0-3.0); Arterial Fraction of Oxyhgb 92.8 % (93.0-99.0); Arterial HCO3 16.9 mmol/L (22.0-26.0); Arterial MetHb 0.3 % (0.0-1.5); Arterial Total Hemglobin 12.9 g/dl (12.0-18.0); MODE VENT - AC
[2017-01-20 09:44] LABS: AADO2 Arterial 24.3 mmHg (7.0-24.0); Allen Test ACCEPTAB; Arterial Base Excess -9.7 mmol/L (-3.0-3); Arterial COHb 0.3 % (0.0-3.0); Arterial Fraction of Oxyhgb 97.3 % (93.0-99.0); Arterial HCO3 15.6 mmol/L (22.0-26.0); Arterial MetHb 0.4 % (0.0-1.5); Arterial Total Hemglobin 13.5 g/dl (12.0-18.0); MODE NASAL CANNULA
--- NOTE | 2017-01-20 09:59 | PN ---
DATE: 01/20/2017 SUBJECTIVE DATA: The patient remains in the intensive care unit, is status post lumbar puncture. The results were reviewed. The patient is status post MRI of the brain. The patient's propofol was just held. The patient remains encephalopathic. He is grimacing due to touch. OBJECTIVE DATA: VITAL SIGNS: Temperature 98.2, pulse 83, respirations 21, blood pressure 98/60, saturation 92 percent, FiO2 was increased to 40 percent. EYES: Pupils are pinpoint and reactive. CARDIOVASCULAR: S1, S2. Regular rate. LUNGS: Clear. ABDOMEN: Soft, nontender. EXTREMITIES: There is no clubbing, cyanosis, or edema. GENITOURINARY: The patient's urine output is about 30 cc an hour. Discussed with nursing staff. In was 2997, out 1075. NEUROLOGIC: The patient does grimace with touch, still not waking up. LABORATORY AND DIAGNOSTIC DATA: White count 15.5, hemoglobin 10.1, hematocrit 31, platelet count 242, neutrophils 94 percent, lymphocytes 3 percent. Chemistry: Sodium 129, potassium 4.1, chloride 107, bicarb 18, BUN 27, creatinine 2.08, glucose 143. CSF fluid shows a clear appearance, colorless, WBC 0, RBC 0, glucose as high as 138, and total protein is high at 94. LDH is 194. Immunoglobulins . MRI of the brain shows no acute intracranial pathology. There is mild generalized volume loss. Mild chronic microvascular ischemic changes. There is fluid opacification of the bilateral mastoid air cells, nonspecific, but possibly representing mastoiditis. MEDICATIONS: Reviewed, include the followin. Claritin 10 mg daily. 2. Pepcid 20 mg IV daily. 3. Ceftriaxone 2 g IV q.12. 4. [place] 1 tab q.6h p.r.n. 5. Accu-Chek before meals and at bedtime. 6. Ativan 2 mg IV q.6 hours before LP. 7. Benadryl p.r.n. 8. Lopressor 25 b.i.d. 9. Colace 100 t.i.d. 10. Diflucan 100 mg IV daily. 11. Hydralazine 25 q.4 p.r.n. 12. Milk of Magnesium p.r.n. 13. Vancomycin IV, dose per pharmacy. 14. Levophed p.r.n. 15. Normal saline 60 cc an hour. 16. Solu-Medrol 60 IV q.8. 17. Insulin aspart per sliding scale, hypoglycemia protocol. 18. Labetalol p.r.n. 19. Hydralazine IV p.r.n. 20. Tylenol p.r.n. 21. Unasyn IV q.6. 22. Acyclovir IV q.12 all dosed per pharmacy. 23. Nicotine patch 14 mg daily. 24. Duoneb p.r.n. 25. Atrovent p.r.n. 26. Uloric 40 mg daily. 27. Heparin 5000 units subcu q.12. 28. Benadryl p.r.n. 29. Cardizem CD 240 daily. 30. Zofran p.r.n. 31. Morphine p.r.n. 32. Colace p.r.n. ASSESSMENT AND PLAN: This is a 66-year-old male, with Abbi's granulomatosis, chronic kidney disease, nicotine dependence, hypertension, who presented with 1 week of fever, chills, generalized weakness and decreased oral intake. 1. Febrile illness causing encephalitis. This may be viral, less likely bacteria. Continue to monitor neurological condition. Continue supportive care for now. 2. Respiratory. Remains on AC mode. Currently, not a candidate for weaning secondary to encephalopathy. We will continue to monitor closely. Follow up ABG and chest x-ray. 3. Cardiovascular, stable. Blood pressure under control. On pressors if needed. 4. Infectious disease: Currently being treated for viral meningitis, bacterial meningitis, and any fungal infection. ID is following closely. I will discontinue steroids. 5. Abbi's granulomatosis. Dr. Rivera is following. 6. Continue Protonix for gastrointestinal prophylaxis. 7. Nutrition: Start the patient orogastric feeding with Novasource Renal. Continue gentle hydration with normal saline. 8. Kidney function remains stable. Monitor electrolytes. Adequate urine output. 9. Follow up cerebrospinal fluid cultures. Case discussed with Dr. Collins Killian. Condition remains guarded. We will follow. In addition, EEG was done as well. We will follow up results. Dictated By: Gurwinder Triplett MD /eladio/jose /Document#: [id number]
--- NOTE | 2017-01-20 10:31 | CONS ---
Date/Time of Note Date/Time of Note DATE: 01/20/17 TIME: 10:22 Consult Date/Type/Reason Admit Date/Time Jan 17, 2017 at 17:33 Initial Consult Date Type of Consultation: Pulmonary Subjective No significant changes. Patient continues mechanical ventilation. Significant agitation off sedation. Status post lumbar puncture. Objective Vital Signs Date Time Temp Pulse Resp B/P Pulse Ox O2 Delivery O2 Flow Rate FiO2 01/20/17 10:00 78 20 130/78 100 01/20/17 09:30 Mechanical Ventilator 01/20/17 08:00 97.7 01/20/17 08:00 40 01/19/17 01:30 1.0 Intake and Output 01/19/17 01/19/17 01/20/17 15:00 23:00 07:00 Intake Total 884.260 ml 1263.636 ml 858.90 ml Output Total 399 ml 321 ml 271 ml Balance 485.260 ml 942.636 ml 587.90 ml Exam PHYSICAL EXAMINATION: GENERAL APPEARANCE: On examination, elderly-appearing gentleman, intubated, on mechanical ventilation. VITAL SIGNS: HEENT: Dry mucous membranes. Pupils equal, reactive to light. CARDIAC: S1, S2. No added sounds or murmurs. CHEST: Diminished air entry bilaterally. ABDOMEN: Soft, nontender. No guarding or rebound. EXTREMITIES: No cyanosis, no edema. NEUROLOGIC: Unable to assess. Results/Medications Result Diagram: 01/20/17 0430 01/20/17 0430 Results 24 hrs Laboratory Tests Test 01/19/17 12:03 01/19/17 12:56 01/19/17 16:15 01/19/17 17:12 Bedside Glucose 230 H 226 H 163 CSF Tubes Submitted 3 CSF Volume 14.5 CSF Appearance CLEAR CSF Color COLORLESS CSF WBC 0 CSF RBC 0 CSF Cell Count Tube # TUBE#3 CSF Mononuclear Cells % (Auto) CSF Polynuclear WBCs (%) CSF Glucose 130 H CSF Lactate Dehydrogenase 194 CSF Total Protein 94 H Test 01/19/17 21:14 01/20/17 01:24 01/20/17 04:30 01/20/17 04:31 Bedside Glucose 139 168 124 White Blood Count 15.5 H Red Blood Count 4.03 L Hemoglobin 11.1 L Hematocrit 31.3 L Mean Corpuscular Volume 77.7 L Mean Corpuscular Hemoglobin 27.5 L Mean Corpuscular Hemoglobin Concent 35.5 Red Cell Distribution Width 15.9 H Platelet Count 242 Mean Platelet Volume 10.9 H Neutrophils % 93.8 H Lymphocytes % 2.5 L Monocytes % 2.9 Eosinophils % 0.0 Basophils % 0.1 Nucleated Red Blood Cells % 0.0 Neutrophils # (Manual) 14.5 H Lymphocytes # 0.4 L Monocytes # 0.5 Eosinophils # 0.0 Basophils # 0.0 Nucleated Red Blood Cells # 0.0 Sodium Level 139 Potassium Level 4.1 Chloride Level 107 Carbon Dioxide Level 18 L Anion Gap 18 H Blood Urea Nitrogen 27 H Creatinine 2.08 H Glucose Level 143 # Calcium Level 8.6 Phosphorus Level 4.1 Magnesium Level 2.3 Total Bilirubin 0.0 L Direct Bilirubin 0.00 Indirect Bilirubin 0.0 Aspartate Amino Transf (AST/SGOT) 38 Alanine Aminotransferase (ALT/SGPT) 47 Alkaline Phosphatase 71 Total Protein 5.2 L Albumin 3.2 L Globulin 2.00 Albumin/Globulin Ratio 1.60 Lipase 69 Test 01/20/17 07:44 01/20/17 08:13 Blood Gas Specimen Source Blood arterial Arterial Blood Date Drawn 01/20/2017 9:10:13 AM Arterial Blood pH (Temp corrected) 7.392 Arterial Blood pCO2 (Temp correct) 28.5 L Arterial Blood pO2 (Temp corrected) 69.2 L Arterial Blood HCO3 16.9 L Arterial Blood Base Excess -6.6 L Arterial Blood Oxygen Saturation 93.4 L George Test ACCEPTAB Arterial Blood Gas Puncture Site Right Radial Arterial Blood Carboxyhemoglobin 0.3 Arterial Blood Methemoglobin 0.3 Blood Gas A-a O2 Differential 183.2 H Oxyhemoglobin Percent 92.8 L Total Hemoglobin 12.9 Blood Gas Temperature 37.0 Blood Gas Respiration Rate 20.0 Blood Gas Actual Respiration Rate 29 Blood Gas Modality VENT - AC FiO2 40.0 Blood Gas Tidal Volume 500.0 Blood Gas Low PEEP Setting 5.0 Blood Gas Notified Whom JLD Blood Gas Notified Time 01/20/2017 9:20:53 AM Bedside Glucose 184 Medications Current Medications Ondansetron HCl (Zofran Inj) 4 mg Q6H PRN IV NAUSEA AND/OR VOMITING; Start 01/17 at 14:30 Morphine Sulfate (morphine) 2 mg Q4H PRN IV SEVERE PAIN LEVEL 7-10; Start at 14:30 Docusate Sodium (Colace) 100 mg Q12H PRN PO CONSTIPATION; Start 01/17/17 at 14: 30 Heparin Sodium (Porcine) (Heparin (5000 Units/0.5 ml)) 5,000 unit Q12 SC Last administered on 01/19/17 09:49; Admin Dose 5,000 UNIT; Start 01/17/17 at 21:00; Status Future Hold Febuxostat (Uloric) 40 mg DAILY PO Last administered on 01/20/17 08:17; Admin Dose 40 MG; Start 01/18/17 at 09:00 Diphenhydramine HCl (Benadryl) 25 mg Q4H PRN IV CHILLS; Start 01/17/17 at 18:30 Diltiazem HCl (Cardizem Cd) 240 mg DAILY PO Last administered on 01/20/17 08:18 ; Admin Dose 240 MG; Start 01/17/17 at 18:30 Nicotine 1 patch 1 patch DAILY TRANSDERM Last administered on 01/20/17 08:18; Admin Dose 1 PATCH; Start 01/18/17 at 10:30 Vancomycin HCl 250 ml @ 125 mls/hr Q24H IVPB Last administered on 01/19/17 15: 49; Admin Dose 125 MLS/HR; Start 01/19/17 at 16:00 Acyclovir 750 mg/ Sodium Chloride 150 ml @ 100 mls/hr Q12H IVPB Last administered on 01/20/17 05:40; Admin Dose 100 MLS/HR; Start 01/18/17 at 18:00 Ampicillin Sodium/ Sulbactam Sodium 100 ml @ 100 mls/hr Q6H IVPB Last administered on 01/20/17 07:50; Admin Dose 100 MLS/HR; Start 01/18/17 at 20:00 Acetaminophen (Ofirmev 1000mg/ 100ml Iv) 100 ml @ 400 mls/hr Q4 PRN IVPB FEVER GREATER THAN 100.6; Start 01/19/17 at 00:30 Hydralazine HCl (Apresoline) 10 mg Q4H PRN IV hypertension Last administered on 01/19/17 01:45; Admin Dose 10 MG; Start 01/19/17 at 01:00 Labetalol HCl (Labetalol) 20 mg Q3 PRN IV ELEVATED BLOOD PRESSURE; Start at 02:30 Labetalol HCl 10 mg 10 mg Q3 PRN IV ELEVATED BLOOD PRESSURE Last administered on 01/19/17 06:50; Admin Dose 10 MG; Start 01/19/17 at 02:30 Propofol (Diprivan) 100 ml @ 2.295 mls/ hr Q12H IV Last administered on 01:30; Admin Dose 9.18 MLS/HR; Start 01/19/17 at 08:00 Diagnostic Test (Pha) (Accu-Chek) 1 ea 02 XX ; Start 01/20/17 at 02:00 Insulin Aspart (Novolog Insulin Pen) NOVOLOG *MILD* ALGORI... Q4 SC Last administered on 01/20/17 08:23; Admin Dose 2 UNIT; Start 01/19/17 at 09:00 Miscellaneous Information 1 ea NOTE XX ; Start 01/19/17 at 09:00 Glucose (Glutose) 15 gm Q15M PRN PO DECREASED GLUCOSE; Start 01/19/17 at 09:00 Glucose (Glutose) 22.5 gm Q15M PRN PO DECREASED GLUCOSE; Start 01/19/17 at 09:00 Dextrose (D50w Syringe) 25 ml Q15M PRN IV DECREASED GLUCOSE; Start 01/19/17 at 09:00 Dextrose (D50w Syringe) 50 ml Q15M PRN IV DECREASED GLUCOSE; Start 01/19/17 at 09:00 Glucagon (Glucagen) 1 mg Q15M PRN IM DECREASED GLUCOSE; Start 01/19/17 at 09:00 Glucose (Glutose) 15 gm Q15M PRN BUCCAL DECREASED GLUCOSE; Start 01/19/17 at 09: 00 IV Flush 10 ml 10 ml PRN PRN IV FLUSH LINE; Start 01/19/17 at 12:00 Sodium Chloride 1,000 ml @ 60 mls/hr [id number] IV Last administered on 01/20/17 04:08; Admin Dose 60 MLS/HR; Start 01/19/17 at 13:30 Norepinephrine 250 ml @ 1.875 mls/ hr TITRATE IV ; Start 01/19/17 at 16:00 Ceftriaxone Sodium 50 ml @ 100 mls/hr Q12H IVPB Last administered on 01/20/17 04:30; Admin Dose 100 MLS/HR; Start 01/20/17 at 05:00 Fluconazole (Diflucan 200 Mg/ NS (Pmx)) 100 ml @ 100 mls/hr Q24H IVPB Last administered on 01/19/17 21:12; Admin Dose 100 MLS/HR; Start 01/19/17 at 20:30 Diphenhydramine HCl (Benadryl Liquid Cup) 25 mg QHS PRN NGT ITCHING; Start 01/19 at 21:00 Hydralazine HCl (Apresoline) 25 mg Q4H PRN NGT hypertension; Start 01/19/17 at 20:30 Acetaminophen/ Hydrocodone Bitart ([place] (5/325)) 1 tab Q6H PRN NGT MODERATE PAIN LEVEL 4-6; Start 01/20/17 at 02:30 Loratadine (Claritin) 10 mg DAILY NGT Last administered on 01/20/17 08:19; Admin Dose 10 MG; Start 01/20/17 at 09:00 Magnesium Hydroxide (Milk Of Mag) 30 ml DAILY PRN NGT CONSTIPATION; Start at 20:30 Metoprolol Tartrate (Lopressor) 25 mg BID NGT Last administered on 01/20/17 08: 24; Admin Dose 25 MG; Start 01/19/17 at 21:00 Acetaminophen (Tylenol Liquid) 1,000 mg Q4H PRN NGT PAIN AND OR ELEVATED TEMP; Start 01/19/17 at 20:30; Status Future Hold Docusate Sodium (Colace Liquid Cup) 100 mg TID NGT Last administered on 08:18; Admin Dose 100 MG; Start 01/19/17 at 21:00 Famotidine (Pepcid Iv) 20 mg Q24H IV Last administered on 01/20/17 08:14; Admin Dose 20 MG; Start 01/20/17 at 09:00 Lorazepam 2 mg 2 mg Q6H PRN IV before LP and MRI Last administered on 01/20/17 00:00; Admin Dose 2 MG; Start 01/20/17 at 00:00 Fentanyl (Sublimaze) 100 ml @ 2.5 mls/hr TITRATE IV ; Start 01/20/17 at 10:00 Assessment/Plan Chief Complaint/Hosp Course IMPRESSION: 1. Hypoxemic respiratory failure likely secondary to a change in neurological status with alveolar hypoventilation and inability to protect airway. 2. Acute encephalopathy of unclear etiology. Concern for a possible primary central nervous system disorder, such as West Nile virus or viral encephalitis. Status post lumbar puncture. PLAN: 1. Continue mechanical ventilation. 2. Await lumbar puncture results 3. Consider empiric antiviral therapy. 4. DVT and GI prophylaxis. Problems: CAROL DÍAZ MD, [facility] Jan 20, 2017 10:31
--- NOTE | 2017-01-20 10:44 | RADRPT ---
PROCEDURE: XR Chest 1 View. CLINICAL INDICATION: Shortness of breath. TECHNIQUE: AP view of the chest was obtained. COMPARISON: Yesterday. FINDINGS: The heart size is within normal limits. Calcified atherosclerosis is noted in the aorta. Endotrache al and nasogastric tubes are stable and appear in grossly appropriate location. Left-sided PICC line is unchanged. No consolidations are identified. No pneumothorax is seen. Osseous structures are u nchanged. IMPRESSION: Calcified atherosclerosis in the aorta. Stable support lines and tubes. Clear lungs. RPTAT: AA .Giovanny Boyd MD, MD Date Time Electronically viewed and signed by .Giovanny oByd MD, MD on 01/20/2017 10:43 .P/
[2017-01-20] MEDS: FENTAnyl (DRIP) 1000 mcg/100mL 100 ML IV SCH ×3 (10:45→22:11)
--- NOTE | 2017-01-20 11:56 | PN ---
DATE: 01/20/2017 SUBJECTIVE DATA: No acute changes overnight. The patient remains intubated, sedated with propofol. He is comfortable on vent. No fevers. Temperature 97.7, pulse 78, respirations 20, blood pressure 130/78, saturation 100 percent. LABORATORY AND DIAGNOSTIC DATA: WBC 15.5, H and H 11.1 and 31.3, platelets 242, neutrophils 93.8, no bands. BUN 27, creatinine 2.08. MICROBIOLOGY: Blood cultures remain negative. Cerebrospinal fluid cultures pending. DIAGNOSTICS: Chest x-ray this morning revealed clear lungs. INDWELLINGS: Endotracheal tube, NG tube, Darden catheter, PICC line placed on 01/19/2017. ANTIMICROBIALS: Rocephin, vancomycin, fluconazole, acyclovir. PHYSICAL EXAMINATION: GENERAL: Well-developed elderly man, who is in no distress. HEENT: Head atraumatic, normocephalic. Sclerae anicteric. Buccal mucosa dry. NECK: Supple. CHEST: Chest rise symmetrical. Breath sounds diminished at the bases. HEART: S1, S2. ABDOMEN: Soft, bowel sounds present. EXTREMITIES: Without cyanosis. ASSESSMENT: 1. Sepsis with fevers and acute encephalopathy on admission. 2. Questionable meningitis, status post lumbar puncture done yesterday with fluid cytology revealing white blood cell count of 0, glucose 130, protein 94. 3. Evidence of bilateral mastoid air cells, fluid opacification possibly mastoiditis. 4. Acute respiratory failure secondary to encephalopathy and inability to protect airways. 5. History of early stage of lung cancer. 6. History of Abbi's disease. 7. Hypertension. 8. Chronic kidney disease. PLAN: The patient remains hemodynamically stable, followed by multiple consultants. We will continue him on antibiotics until we get final cultures of CSF. We will await for Guerda ink HSV by PCR, and cryptococcal antigen. We will order procalcitonin level. Continue vent management as per Pulmonary. Follow recommendations of consultants. Dictated By: Giancarlo Hodges NP /[email or web address] /Document#: [id number]
[2017-01-20 13:16] LABS: LYMPHOCYTE - % CD4 (HELPER) 57 % (30-61); LYMPHOCYTE - %CD8 (SUPPRESSOR) 25 % (12-42); LYMPHOCYTE - ABSOLUTE CD4 504 cells/uL (490-1740); LYMPHOCYTE - ABSOLUTE CD8 223 cells/uL (180-1170); LYMPHOCYTE - CD4/CD8 RATIO 2.26 (0.86-5.00)
--- NOTE | 2017-01-20 13:19 | CONS ---
Date/Time of Note Date/Time of Note DATE: 01/20/17 TIME: 13:15 Consult Date/Type/Reason Admit Date/Time Jan 17, 2017 at 17:33 Type of Consultation: Rheumatology Subjective Continues intubated. LP done yesterday and no WBCs in fluid. Objective Vital Signs Date Time Temp Pulse Resp B/P Pulse Ox O2 Delivery O2 Flow Rate FiO2 01/20/17 12:00 97.7 75 20 137/78 94 Mechanical Ventilator 01/20/17 08:00 40 01/19/17 01:30 1.0 Intake and Output 01/19/17 01/19/17 01/20/17 15:00 23:00 07:00 Intake Total 884.260 ml 1263.636 ml 858.90 ml Output Total 399 ml 321 ml 271 ml Balance 485.260 ml 942.636 ml 587.90 ml Exam GENERAL: Intubated, sedated; HEENT: ET Tube in place NECK: No lymphadenopathy. No thyroid enlargement. HEART: S1, S2. Regular rate and rhythm. LUNGS: Clear bilaterally. ABDOMEN: Soft, slightly overweight, nontender. EXTREMITIES: No clubbing, cyanosis, no edema. MUSCULOSKELETAL: No joint effusions. SKIN: No rash. Results/Medications Result Diagram: 01/20/17 0430 01/20/17 0430 Results 24 hrs Laboratory Tests Test 01/19/17 16:15 01/19/17 17:12 01/19/17 21:14 01/20/17 01:24 CSF Tubes Submitted 3 CSF Volume 14.5 CSF Appearance CLEAR CSF Color COLORLESS CSF WBC 0 CSF RBC 0 CSF Cell Count Tube # TUBE#3 CSF Mononuclear Cells % (Auto) CSF Polynuclear WBCs (%) CSF Glucose 130 H CSF Lactate Dehydrogenase 194 CSF Total Protein 94 H Bedside Glucose 163 139 168 Test 01/20/17 04:30 01/20/17 04:31 01/20/17 07:44 01/20/17 08:13 White Blood Count 15.5 H Red Blood Count 4.03 L Hemoglobin 11.1 L Hematocrit 31.3 L Mean Corpuscular Volume 77.7 L Mean Corpuscular Hemoglobin 27.5 L Mean Corpuscular Hemoglobin Concent 35.5 Red Cell Distribution Width 15.9 H Platelet Count 242 Mean Platelet Volume 10.9 H Neutrophils % 93.8 H Lymphocytes % 2.5 L Monocytes % 2.9 Eosinophils % 0.0 Basophils % 0.1 Nucleated Red Blood Cells % 0.0 Neutrophils # (Manual) 14.5 H Lymphocytes # 0.4 L Monocytes # 0.5 Eosinophils # 0.0 Basophils # 0.0 Nucleated Red Blood Cells # 0.0 Sodium Level 139 Potassium Level 4.1 Chloride Level 107 Carbon Dioxide Level 18 L Anion Gap 18 H Blood Urea Nitrogen 27 H Creatinine 2.08 H Glucose Level 143 # Calcium Level 8.6 Phosphorus Level 4.1 Magnesium Level 2.3 Total Bilirubin 0.0 L Direct Bilirubin 0.00 Indirect Bilirubin 0.0 Aspartate Amino Transf (AST/SGOT) 38 Alanine Aminotransferase (ALT/SGPT) 47 Alkaline Phosphatase 71 Total Protein 5.2 L Albumin 3.2 L Globulin 2.00 Albumin/Globulin Ratio 1.60 Lipase 69 Bedside Glucose 124 184 Blood Gas Specimen Source Blood arterial Arterial Blood Date Drawn 01/20/2017 9:10:13 AM Arterial Blood pH (Temp corrected) 7.392 Arterial Blood pCO2 (Temp correct) 28.5 L Arterial Blood pO2 (Temp corrected) 69.2 L Arterial Blood HCO3 16.9 L Arterial Blood Base Excess -6.6 L Arterial Blood Oxygen Saturation 93.4 L George Test ACCEPTAB Arterial Blood Gas Puncture Site Right Radial Arterial Blood Carboxyhemoglobin 0.3 Arterial Blood Methemoglobin 0.3 Blood Gas A-a O2 Differential 183.2 H Oxyhemoglobin Percent 92.8 L Total Hemoglobin 12.9 Blood Gas Temperature 37.0 Blood Gas Respiration Rate 20.0 Blood Gas Actual Respiration Rate 29 Blood Gas Modality VENT - AC FiO2 40.0 Blood Gas Tidal Volume 500.0 Blood Gas Low PEEP Setting 5.0 Blood Gas Notified Whom JLD Blood Gas Notified Time 01/20/2017 9:20:53 AM Test 01/20/17 13:04 Bedside Glucose 173 Medications Current Medications Ondansetron HCl (Zofran Inj) 4 mg Q6H PRN IV NAUSEA AND/OR VOMITING; Start 01/17 at 14:30 Morphine Sulfate (morphine) 2 mg Q4H PRN IV SEVERE PAIN LEVEL 7-10; Start at 14:30 Docusate Sodium (Colace) 100 mg Q12H PRN PO CONSTIPATION; Start 01/17/17 at 14: 30 Heparin Sodium (Porcine) (Heparin (5000 Units/0.5 ml)) 5,000 unit Q12 SC Last administered on 01/19/17 09:49; Admin Dose 5,000 UNIT; Start 01/17/17 at 21:00; Status Future Hold Febuxostat (Uloric) 40 mg DAILY PO Last administered on 01/20/17 08:17; Admin Dose 40 MG; Start 01/18/17 at 09:00 Diphenhydramine HCl (Benadryl) 25 mg Q4H PRN IV CHILLS; Start 01/17/17 at 18:30 Diltiazem HCl (Cardizem Cd) 240 mg DAILY PO Last administered on 01/20/17 08:18 ; Admin Dose 240 MG; Start 01/17/17 at 18:30 Nicotine 1 patch 1 patch DAILY TRANSDERM Last administered on 01/20/17 08:18; Admin Dose 1 PATCH; Start 01/18/17 at 10:30 Vancomycin HCl 250 ml @ 125 mls/hr Q24H IVPB Last administered on 01/19/17 15: 49; Admin Dose 125 MLS/HR; Start 01/19/17 at 16:00 Acyclovir 750 mg/ Sodium Chloride 150 ml @ 100 mls/hr Q12H IVPB Last administered on 01/20/17 05:40; Admin Dose 100 MLS/HR; Start 01/18/17 at 18:00 Ampicillin Sodium/ Sulbactam Sodium 100 ml @ 100 mls/hr Q6H IVPB Last administered on 01/20/17 07:50; Admin Dose 100 MLS/HR; Start 01/18/17 at 20:00 Acetaminophen (Ofirmev 1000mg/ 100ml Iv) 100 ml @ 400 mls/hr Q4 PRN IVPB FEVER GREATER THAN 100.6; Start 01/19/17 at 00:30 Hydralazine HCl (Apresoline) 10 mg Q4H PRN IV hypertension Last administered on 01/19/17 01:45; Admin Dose 10 MG; Start 01/19/17 at 01:00 Labetalol HCl (Labetalol) 20 mg Q3 PRN IV ELEVATED BLOOD PRESSURE; Start at 02:30 Labetalol HCl 10 mg 10 mg Q3 PRN IV ELEVATED BLOOD PRESSURE Last administered on 01/19/17 06:50; Admin Dose 10 MG; Start 01/19/17 at 02:30 Propofol (Diprivan) 100 ml @ 2.295 mls/ hr Q12H IV Last administered on 01:30; Admin Dose 9.18 MLS/HR; Start 01/19/17 at 08:00 Diagnostic Test (Pha) (Accu-Chek) 1 ea 02 XX ; Start 01/20/17 at 02:00 Insulin Aspart (Novolog Insulin Pen) NOVOLOG *MILD* ALGORI... Q4 SC Last administered on 01/20/17 08:23; Admin Dose 2 UNIT; Start 01/19/17 at 09:00 Miscellaneous Information 1 ea NOTE XX ; Start 01/19/17 at 09:00 Glucose (Glutose) 15 gm Q15M PRN PO DECREASED GLUCOSE; Start 01/19/17 at 09:00 Glucose (Glutose) 22.5 gm Q15M PRN PO DECREASED GLUCOSE; Start 01/19/17 at 09:00 Dextrose (D50w Syringe) 25 ml Q15M PRN IV DECREASED GLUCOSE; Start 01/19/17 at 09:00 Dextrose (D50w Syringe) 50 ml Q15M PRN IV DECREASED GLUCOSE; Start 01/19/17 at 09:00 Glucagon (Glucagen) 1 mg Q15M PRN IM DECREASED GLUCOSE; Start 01/19/17 at 09:00 Glucose (Glutose) 15 gm Q15M PRN BUCCAL DECREASED GLUCOSE; Start 01/19/17 at 09: 00 IV Flush 10 ml 10 ml PRN PRN IV FLUSH LINE; Start 01/19/17 at 12:00 Sodium Chloride 1,000 ml @ 60 mls/hr [id number] IV Last administered on 01/20/17 04:08; Admin Dose 60 MLS/HR; Start 01/19/17 at 13:30 Norepinephrine 250 ml @ 1.875 mls/ hr TITRATE IV ; Start 01/19/17 at 16:00 Ceftriaxone Sodium 50 ml @ 100 mls/hr Q12H IVPB Last administered on 01/20/17 04:30; Admin Dose 100 MLS/HR; Start 01/20/17 at 05:00 Fluconazole (Diflucan 200 Mg/ NS (Pmx)) 100 ml @ 100 mls/hr Q24H IVPB Last administered on 01/19/17 21:12; Admin Dose 100 MLS/HR; Start 01/19/17 at 20:30 Diphenhydramine HCl (Benadryl Liquid Cup) 25 mg QHS PRN NGT ITCHING; Start 01/19 at 21:00 Hydralazine HCl (Apresoline) 25 mg Q4H PRN NGT hypertension; Start 01/19/17 at 20:30 Acetaminophen/ Hydrocodone Bitart (Luxora (5/325)) 1 tab Q6H PRN NGT MODERATE PAIN LEVEL 4-6; Start 01/20/17 at 02:30 Loratadine (Claritin) 10 mg DAILY NGT Last administered on 01/20/17 08:19; Admin Dose 10 MG; Start 01/20/17 at 09:00 Magnesium Hydroxide (Milk Of Mag) 30 ml DAILY PRN NGT CONSTIPATION; Start at 20:30 Metoprolol Tartrate (Lopressor) 25 mg BID NGT Last administered on 01/20/17 08: 24; Admin Dose 25 MG; Start 01/19/17 at 21:00 Acetaminophen (Tylenol Liquid) 1,000 mg Q4H PRN NGT PAIN AND OR ELEVATED TEMP; Start 01/19/17 at 20:30; Status Future Hold Docusate Sodium (Colace Liquid Cup) 100 mg TID NGT Last administered on 08:18; Admin Dose 100 MG; Start 01/19/17 at 21:00 Famotidine (Pepcid Iv) 20 mg Q24H IV Last administered on 01/20/17 08:14; Admin Dose 20 MG; Start 01/20/17 at 09:00 Lorazepam 2 mg 2 mg Q6H PRN IV before LP and MRI Last administered on 01/20/17 00:00; Admin Dose 2 MG; Start 01/20/17 at 00:00 Fentanyl (Sublimaze) 100 ml @ 2.5 mls/hr TITRATE IV Last administered on 10:45; Admin Dose 2.5 MLS/HR; Start 01/20/17 at 10:00 Miscellaneous Information (*Rx Drug Level Order Reminder*) VANCOMYCIN TROUGH 01/21 AT 1500 ONCE ONCE XX ; Start 01/21/17 at 15:00; Stop 01/21/17 at 15:01 Assessment/Plan Chief Complaint/Hosp Course IMPRESSION AND PLAN: 66-year-old male with history of hypertension, adenocarcinoma of the lung, gout and 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 He has been intubated after having some respiratory distress that pulmonary feels is more central in etiology 1. Respiratory failure- most likely central in Etiology. 2. Fevers. Although they can always be secondary to an autoimmune condition, namely Abbi's in this case, at this point given the elevated white count and absence of any other problems in terms of lung or kidney or abdomen which is the patient's presenting issue with Abbi's, Thorough ID work-up under way and cultures of CSF and others still pending. If his condition worsens or they really find no etiology for his infections, we will consider giving him some prednisone. 3. Abbi's. The patient is currently on Rituxan which is an immunosuppressant. Again, this puts him at risk for opportunistic infections, so for this reason, I would consider him more at risk of having infection as a cause of a fever. Also his Abbi's has been very well controlled since his diagnosis, he has never had a flare, he has never been hospitalized, with Cytoxan and now Rituxan, I feel like it is unlikely that it would be a Abbi's flare. 4 History of gout. Uric acid levels are low. There is no joint swelling. No joint pain. Therefore, we will just follow him. 5 Chronic kidney disease. Currently with IV hydration his renal function appears to be improving. Again I would continue to follow this. If for some reason, it stops improving or it gets worse, then we may be more concerned that it may be a Abbi's issue. Will discuss with ID regarding starting Steroids I Problems: SHIRLEY MORALES MD Jan 20, 2017 13:19
--- NOTE | 2017-01-20 14:37 | PRO ---
DATE OF PROCEDURE: 01/19/2017 PROCEDURE PERFORMED: EEG INDICATION: A 66-year-old gentleman with encephalopathy possible meningitis. DESCRIPTION OF PROCEDURE: Routine EEG was recorded digitally. Scalp to scalp and scalp to ear montages were recorded and reviewed. All impedances were measured and recorded. Cap CP electrodes were placed in accordance to International 10-20 system of electrode placement. Symmetrically revealed background activity of low to medium amplitude, ranging in frequency between 8-10 cycles per second was seen intermixed seeing was slower waves at times 2-4 cycles per second. Occasional movement and muscle artifacts are present. No definite epileptiform transients were seen. No lateralized slowing observed. Infrequent left occipital spikes seem to be artifactual. IMPRESSION: Abnormal study secondary to intermittent background slowing, which could reflect presence of encephalopathy, likely toxic metabolic type of etiology. Please correlate clinically. Dictated By: Collins Killian MD /[email or web address] /Document#: [id number]
[2017-01-20] MEDS: VANCOMYCIN 1 GM in NS 250 ML IVPB SCH (16:02)
--- NOTE | 2017-01-20 19:15 | RADRPT ---
Vent Rate: 79 bpm RR Interval: 0 msec VT Interval: 150 msec QRS Duration: 100 msec QT Interval: 410 msec QTC Interval: 470 msec P-R-T Randolph: 70 - -10 - 56 degrees Normal sinus rhythm Normal ECG Electronically Signed By: Festus Noble [id number]
[2017-01-20] MEDS: FLUCONAZOLE 200 MG/NS (PMX) 100 ML IVPB SCH (20:30)
[2017-01-21] VITALS (54 sets, daily range): BP systolic 97–168; BP diastolic 58–91; PULSE 71–101; RESP 19–33
[2017-01-21] MEDS: INSULIN ASPART [NOVOLOG] 3 ML PEN SC SCH ×6 (00:36→21:02)
--- NOTE | 2017-01-21 01:43 | CONS ---
DATE OF ADMISSION: 01/17/2017 DATE OF CONSULTATION: 01/20/2017 HISTORY OF PRESENT ILLNESS: Patient is a 66-year-old gentleman known to me prior to admission. He has history of Abbi's granulomatosis, which was diagnosed approximately 9-10 years ago at [facility]. In the last several years he has been on immunosuppressive treatments with Rituxan every 6 months and last treatment 1 or 2 months ago. He also has history of hypertension, gout, as well as history of lung cancer in the right lung. A small nodule was seen on the CAT scan and was resected 9 years ago, and no chemotherapy or radiation was needed. Patient was admitted on 01/17/2017. He complained of approximately 5-7 days of fevers, 37.5, 38.5 degrees, fluctuating, but not getting better with time. Also, he could not eat for the days of fevers, and he had transient pain in the shoulders, few episodes of nausea and vomiting but was able to vomit only minimal amount of material. Overall, no other complaints of pain, especially no complaints of headache. On admission, he was found to have neutrophil predominance, though normal or borderline elevated WBC count. I forgot to mention that he has a history of baseline renal insufficiency secondary to Abbi's granulomatosis. He also has a history of nasal discharge for a long time and mild cough on and off secondary to smoking and some chronic at least a year or several months duration complaints of hearing impairments. Upon admission, patient was started on Zosyn. Next day, WBC count went up. He continued to be febrile, and Levaquin was added. Forgot to mention that patient in the 1 or 2 days prior to admission, was complaining of orthostatic dizziness and some tremulousness in the extremities. Patient's mental status was worsening in the hospital. He became somewhat confused, forgetting where he was intermittently. He also on 01/19/2016 complained of double vision in the distance when he was looking to the right. At that time, he did not have for complaints of headache, neck pain, and he did not have any nuchal rigidity. I saw him while in the hospital because he is my relative. On the night of 01/18/2017, patient was evaluated by ID specialist, who felt that he was very confused, poorly responsive and developed meningeal symptoms of nuchal rigidity. So patient was moved to the ICU that night and next morning, 01/19/2017, he had some stridorous respirations and had to be intubated while in the ICU. He was placed on Solu-Medrol. Patient eventually was switched from Zosyn and Levaquin to Unasyn, vancomycin, Rocephin. Was placed on acyclovir in 01/18/2017 at night or in the morning of 01/19/2017. Patient had lumbar puncture done yesterday. Somehow, specimen was lost in the laboratory until I called them yesterday evening and talked to radiologist as well as laboratory. They were able to locate it in the lab. Specimen was not processed for 4 or 5 hours. So far, lumbar puncture results came with absence of cells, neither WBCs or RBCs, elevated glucose 130, and total protein of 94. LDH was normal, 194. This morning I called Microbiology to inquire regarding cultures from CSF and again I was told that the specimen was not received. Later, following some investigations by laboratory personnel, they found specimen and it was given to Microbiology. Guerda ink came negative, as well as Gram stain shows no organisms. I forgot to mention that urine culture showed mixed gram-positive organisms, but colony count less than 10,000. Blood cultures negative. Influenza swab was negative. ID service continues to see patient. Patient was placed on fluconazole, which i will stop giving, in that Guerda ink was negative. RPR was nonreactive. EBV capsids IgM negative and elevated IgG, interpretation states suggestive of recent EBV infection. HIV is negative. Toxoplasma IgG elevated 15. Rest of serologies are pending. The patient has very low IgG, IgA and IgM levels. Lumbar puncture was sent for HSV PCR and West Nile virus, as well as HSV serology, and West Nile serology was sent from the blood. The rest of his labs show a WBC count 15.5 today, yesterday was 14.1, and day before yesterday 12.5, neutrophils 93.8, hemoglobin 11, hematocrit 31, with normal platelets. Again, steroids were discontinued this morning. I do not know if leukocytosis was in part secondary to steroids. BUN 27, creatinine 2.08, yesterday were BUN 20, creatinine 2. Liver function tests, total protein 5.8, rest within normal limits. TSH normal. Blood gas today with pH 7.39, pCO2 of 28, pO2 of 69 on 40 percent FiO2. Normal PT and PTT. Urinalysis shows proteinuria. PAST MEDICAL HISTORY: As above. ALLERGIES: NONE. CURRENT MEDICATIONS: PREVACID. PATIENT WAS PUT ON FENTANYL IN ATTEMPT TO SWITCH FROM PROPOFOL, CURRENT 100. ROCEPHIN. LOPRESSOR. HYDRALAZINE. MILK OF MAGNESIA. VANCOMYCIN. AMPICILLIN WITH SULBACTAM. ACYCLOVIR 750 MG TWICE DAILY. ULORIC. NICOTINE PATCH. SOCIAL HISTORY: Cigarette smoker and occasional alcohol consumer. FAMILY HISTORY: Diabetes. PHYSICAL EXAMINATION: VITAL SIGNS: Forgot to mention the patient is afebrile since yesterday, when temperature 98.5, pulse 90, respirations 20, blood pressure 121/66. GENERAL: Not in acute distress. HEENT: Normocephalic, atraumatic head. Intubated orally. NECK: Stiff neck, especially on attempted flexion. Nuchal rigidity. LUNGS: Clear to auscultation bilaterally. HEART: Normal rhythm and sounds. ABDOMEN: Soft. It is slightly obese. EXTREMITIES: No cyanosis, clubbing, or edema. NEUROLOGIC: Patient is lethargic. He is on fentanyl 100 and propofol 10. Seems to try to open eyes to loud voice. Does not follow commands. Earlier he was moving extremities with less sedation. No definite response to visual threat bilaterally. Pupils about 2 mm bilaterally. Extraocular movements seem to be intact on oculocephalic maneuver, at times patient seemed to look to the sides Corneal reflexes present bilaterally, as well as gag. Motor strength examination with response to pain in upper extremities patient has some withdrawal, and in lower extremities as well. Increased tone in upper extremities predominantly, with cogwheeling. Patient moves at least 3- out of 5. Again, he is sedated. Grimaces to pain as well. Deep tendon reflexes, 2+ upper extremities and knees, absent ankle jerks. Downgoing response to plantar stimulation bilaterally. Coordination examination shows postural tremor at times, myoclonic jerks in upper extremities. IMPRESSION: A 66-year-old gentleman with several days of fevers and generalized weakness, dizziness, a few episodes of nausea, transient shoulder pain. Patient is immunosuppressed and he developed mental status changes, became confused, and complained of diplopia; in the hospital, has also developed noticeable nuchal rigidity. 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 I forgot to mention that MRI of the brain without contrast did not show any acute abnormality. Will continue current treatment with antibiotics as well as antiviral medications. If HSV PCR comes negative, probably acyclovir could be discontinued. ID service is on case. West Nile work up is pending. I forgot to mention that also EEG was done, and it was consistent with encephalopathy. Dictated By: Collins Killian MD /[email or web address] /Document#: [id number] [place]
[2017-01-21] MEDS: ACCU-CHEK XX SCH (02:00)
[2017-01-21] MEDS: AMPICILLIN/SULB 3 GM/NS (PMX) 100 ML IVPB SCH ×3 (02:16→13:38)
[2017-01-21] MEDS: CEFTRIAXONE 2 GM/50 ML (PMX) 50 ML IVPB SCH (05:01)
[2017-01-21] MEDS: LANSOPRAZOLE 30 MG CAP NGT SCH (05:09)
[2017-01-21] MEDS: PROPOFOL 100 ML IV SCH ×2 (05:09→20:00)
[2017-01-21 05:42] LABS: ABNORMAL IP MESSAGE 1; BASOPHILS % 0.1 % (0.0-2.0); HEMATOCRIT 26.7 % (42.0-52.0); HEMOGLOBIN 9.9 g/dl (14.0-18.0); LYMPHOCYTES # 0.3 10^3/ul (0.8-2.9); LYMPHOCYTES % 1.8 % (15.0-51.0); MEAN CORPUSCULAR HEMOGLOBIN 28.9 pg (29.0-33.0); MEAN CORPUSCULAR HGB CONC 37.1 g/dl (32.0-37.0); MEAN CORPUSCULAR VOLUME 78.1 fl (82.0-101.0); MONOCYTE # 1.1 10^3/ul (0.3-0.9); MONOCYTES % 6.9 % (0.0-11.0); NEUTROPHILS % 90.1 % (39.0-77.0); PLATELET COUNT 207 10^3/UL (140-415); POSITIVE DIFF @See below; RED BLOOD COUNT 3.42 10^6/ul (4.70-6.10); RED CELL DISTRIBUTION WIDTH 15.8 % (11.5-14.5); WHITE BLOOD COUNT 15.8 10^3/ul (4.8-10.8)
[2017-01-21 06:08] LABS: CALCIUM 8.3 mg/dl (8.4-10.2); CREATININE 2.42 mg/dl (0.61-1.24)
[2017-01-21 06:11] LABS: MAGNESIUM 2.4 mg/dl (1.7-2.5); PHOSPHORUS 3.1 mg/dl (2.5-4.9)
[2017-01-21] MEDS: ACYCLOVIR 750 MG in SOD CHLORIDE 0.9% 150 ML IVPB SCH ×2 (06:14→18:29)
[2017-01-21 06:33] LABS: POTASSIUM 2.9 mmol/L (3.5-5.1)
[2017-01-21] MEDS ORDERED: POTASSIUM CHLORIDE 20 MEQ POWDER FOR ORAL SOLN GTB ONE (07:00)
[2017-01-21] MEDS ORDERED: POTASSIUM CHLORIDE 250 ML IVPB ONE (07:00)
--- NOTE | 2017-01-21 07:21 | RADRPT ---
PROCEDURE: Chest Radiograph. CLINICAL INDICATION: Pneumonia. CHF. TECHNIQUE: Single frontal chest radiograph. COMPARISON: Chest radiograph 01/20/2017 FINDINGS: An endotracheal tube and nasogastric tube remain in stable and radiographically appropriate position . A left upper extremity PICC is unchanged. There is a new left basilar infiltrate with possible sm all effusion. The lungs are otherwise unchanged. The cardiomediastinal silhouette is stable. The bones are intact. IMPRESSION: 1. New left basilar infiltrate with possible small underlying effusion. 2. Otherwise stable radiographic appearance of chest compared to 01/20/2017. RPTAT: HJ[facility] .Abhilash Bright MD, MD Date Time Electronically viewed and signed by .Abhilash Bright MD, on 01/21/2017 07:21 .B/
[2017-01-21] MEDS: FENTAnyl (DRIP) 1000 mcg/100mL 100 ML IV SCH ×2 (08:21→17:17)
[2017-01-21] MEDS: NICOTINE (14 MG/24 HR) PATCH TRANSDERM SCH (08:28)
[2017-01-21] MEDS: FEBUXOSTAT 40 MG TABLET PO SCH (08:28)
[2017-01-21] MEDS: DOCUSATE SODIUM 10 MG/ML (10ML CUP) NGT SCH ×3 (08:28→20:38)
[2017-01-21] MEDS: METOPROLOL 25 MG TAB NGT SCH ×2 (08:28→20:38)
[2017-01-21] MEDS: DILTIAZEM (CD) 240 MG CAP PO SCH (08:29)
[2017-01-21] MEDS: LORATADINE 10 MG TAB NGT SCH (08:34)
--- NOTE | 2017-01-21 09:27 | PN ---
DATE: 01/21/2017 SUBJECTIVE DATA: The patient is sedated with propofol at 15 mcg and fentanyl 100 mcg. The patient is moving his upper extremity, trying to open his eyes. Patient still does not follow commands. Awaiting all CSF studies. Case discussed with Dr. Guadalupe. Noted mild hyperglycemia and hypokalemia. Kidney function has slightly worsened as well. OBJECTIVE DATA: VITAL SIGNS: Temperature 98.1. The patient today is afebrile. Pulse 82, respirations 21, blood pressure 124/71, oxygen saturation 93 percent. Patient is on 30 percent FiO2. No ABG today. ABG has been reviewed, shows a pH of 7.39, pCO2 of 29, PO2 of 69, bicarb , saturation 93 percent. This is AC 20, tidal volume 500, PEEP of 5, and FiO2 of 40 percent. GENERAL: Patient is trying to open his eyes. Post stimulation is trying to move his upper extremity with slight tremor. HEART: S1 and S2. Regular rate. LUNGS: Decreased on the right. ABDOMEN: Soft, nontender. EXTREMITIES: No clubbing, cyanosis, or edema. LABORATORY AND DIAGNOSTIC DATA: White count remains high at 15.8, hemoglobin 9.9, hematocrit 27, platelet count 207, neutrophils .2 percent. Chemistry: sodium 129, potassium 2.9, chloride 111, bicarb 22, BUN is 37, creatinine 2.42, glucose of 171. Blood glucose level was 211, elevated. Immunologic including IgG, IgG, IgM were all low. CD4 count is 504, which is in normal range. Toxoplasma IgG antibodies 15.4, elevated, but this is IgG. Theresa-Giron virus IgG antigen is also positive, but IgM is negative. Awaiting further tests, such as West Nile virus, CMV, etc. Cultures: Guerda ink is negative. CSF culture: No organism seen. EEG did show encephalopathy. MEDICATIONS: Include: 1. Prevacid 30 mg via NG tube. 2. Levophed as needed. 3. Fentanyl as directed. 4. Claritin 10 mg daily. 5. Rocephin 2 g q.12. 6. [place] p.r.n. 7. Accu-Cheks before meals and at bedtime. 8. Ativan 2 mg IV q.6 p.r.n. 9. Benadryl p.r.n. 10. Lopressor 25 b.i.d. 11. Colace 100 t.i.d. 12. Hydralazine p.r.n. 13. Milk of Magnesium p.r.n. 14. Vancomycin IV, dose per pharmacy. 15. Normal saline at 60 cc an hour. 16. Insulin aspart per sliding scale. 17. Hypoglycemia protocol as directed. 18. Labetalol p.r.n. 19. Hydralazine p.r.n. 20. Tylenol p.r.n. 21. Unasyn IV q.6 hours. 22. Acyclovir IV q.12 hours, dose per pharmacy. 23. Albuterol and Atrovent p.r.n. 24. Uloric 40 mg daily. 25. Cardizem CD 240 daily. 26. Zofran p.r.n. 27. Morphine p.r.n. 28. Colace p.r.n. ASSESSMENT AND PLAN: This is a 66-year-old male, with history of Abbi's granulomatosis, chronic kidney disease, nicotine dependency, hypertension, who presented with 1 week of fever, chills, generalized weakness and decreased oral intake. 1. Febrile illness causing encephalitis, which etiology may be viral or may be bacterial versus other. Awaiting final workup. Continue supportive care for now. I appreciate Neurology followup. 2. Respiratory: Remains on AC mode. Weaning is on hold secondary to patient's encephalopathy. Chest x-ray done today shows new left basilar infiltrate with possible small underlying effusion, otherwise stable radiographic imaging. Continue antibiotic regimen per ID. 3. ID: Patient remains on treatment for both viral meningitis, bacterial meningitis. Follow up all culture results. 4. Abbi's granulomatosis. Appreciate Rheumatology followup. 5. Chronic kidney disease with acute component. Continue to monitor urine output. In was 3407, out 853. May consider diuretic therapy to keep hemo even. Noticed worsening kidney function, which it is likely his baseline is between 2 to 2.4. We will follow. 6. Continue Prevacid for gastrointestinal prophylaxis. 7. Nutrition: Currently being fed via orogastric. Tolerating diet well. 8. Cardiovascular: Off pressors. 9. Sequential compression devices for deep venous thrombosis prophylaxis. Heparin was discontinued secondary to slight blood oozing from the trach, may consider resuming it. 10. Hyperglycemia. We will start the patient on Lantus 4 units daily. Observe. Likely secondary to recent steroid administration. 11. Continue to monitor neurological status, which is the most concerning. May consider discontinuing sedation and monitor neuro status. We will follow. Dictated By: Gurwinder Triplett MD /[email or web address]/jose /Document#: [id number]
--- NOTE | 2017-01-21 10:13 | CONS ---
Date/Time of Note Date/Time of Note DATE: 01/21/17 TIME: 10:11 Consult Date/Type/Reason Admit Date/Time Jan 17, 2017 at 17:33 Type of Consultation: Pulm Subjective No changes overnight, intermittent agitation of sedation. Objective Vital Signs Date Time Temp Pulse Resp B/P Pulse Ox O2 Delivery O2 Flow Rate FiO2 01/21/17 09:30 72 21 117/70 93 01/21/17 09:00 Mechanical Ventilator 01/21/17 09:00 40 01/21/17 07:30 98.1 01/19/17 01:30 1.0 Intake and Output 01/20/17 01/20/17 01/21/17 15:00 23:00 07:00 Intake Total 807.565 ml 1482.335 ml 898.195 ml Output Total 318 ml 284 ml 225 ml Balance 489.565 ml 1198.335 ml 673.195 ml Exam GENERAL APPEARANCE: On examination, elderly-appearing gentleman, intubated, on mechanical ventilation. VITAL SIGNS: HEENT: Dry mucous membranes. Pupils equal, reactive to light. CARDIAC: S1, S2. No added sounds or murmurs. CHEST: Diminished air entry bilaterally. ABDOMEN: Soft, nontender. No guarding or rebound. EXTREMITIES: No cyanosis, no edema. NEUROLOGIC: Unable to assess. Results/Medications Result Diagram: 01/21/17 0500 01/21/17 0500 Results 24 hrs Laboratory Tests Test 01/20/17 13:04 01/20/17 17:30 01/20/17 20:44 01/21/17 00:34 Bedside Glucose 173 178 207 182 Test 01/21/17 05:00 01/21/17 05:03 01/21/17 08:39 White Blood Count 15.8 H Red Blood Count 3.42 L Hemoglobin 9.9 L Hematocrit 26.7 L Mean Corpuscular Volume 78.1 L Mean Corpuscular Hemoglobin 28.9 L Mean Corpuscular Hemoglobin Concent 37.1 H Red Cell Distribution Width 15.8 H Platelet Count 207 Mean Platelet Volume 11.0 H Neutrophils % 90.1 H Lymphocytes % 1.8 L Monocytes % 6.9 Eosinophils % 0.0 Basophils % 0.1 Nucleated Red Blood Cells % 0.0 Neutrophils # (Manual) 14.2 H Lymphocytes # 0.3 L Monocytes # 1.1 H Eosinophils # 0.0 Basophils # 0.0 Nucleated Red Blood Cells # 0.0 Sodium Level 139 Potassium Level 2.9 *L Chloride Level 111 H Carbon Dioxide Level 22 Anion Gap 9 # Blood Urea Nitrogen 37 H Creatinine 2.42 H Glucose Level 171 Calcium Level 8.3 L Phosphorus Level 3.1 Magnesium Level 2.4 Bedside Glucose 211 161 Medications Current Medications Ondansetron HCl (Zofran Inj) 4 mg Q6H PRN IV NAUSEA AND/OR VOMITING; Start 01/17 at 14:30 Morphine Sulfate (morphine) 2 mg Q4H PRN IV SEVERE PAIN LEVEL 7-10; Start at 14:30 Docusate Sodium (Colace) 100 mg Q12H PRN PO CONSTIPATION; Start 01/17/17 at 14: 30 Heparin Sodium (Porcine) (Heparin (5000 Units/0.5 ml)) 5,000 unit Q12 SC Last administered on 01/19/17 09:49; Admin Dose 5,000 UNIT; Start 01/17/17 at 21:00; Status Future Hold Febuxostat (Uloric) 40 mg DAILY PO Last administered on 01/21/17 08:28; Admin Dose 40 MG; Start 01/18/17 at 09:00 Diphenhydramine HCl (Benadryl) 25 mg Q4H PRN IV CHILLS; Start 01/17/17 at 18:30 Diltiazem HCl (Cardizem Cd) 240 mg DAILY PO Last administered on 01/21/17 08:29 ; Admin Dose 240 MG; Start 01/17/17 at 18:30 Nicotine 1 patch 1 patch DAILY TRANSDERM Last administered on 01/21/17 08:28; Admin Dose 1 PATCH; Start 01/18/17 at 10:30 Vancomycin HCl 250 ml @ 125 mls/hr Q24H IVPB Last administered on 01/20/17 16: 02; Admin Dose 125 MLS/HR; Start 01/19/17 at 16:00 Acyclovir 750 mg/ Sodium Chloride 150 ml @ 100 mls/hr Q12H IVPB Last administered on 01/21/17 06:14; Admin Dose 100 MLS/HR; Start 01/18/17 at 18:00 Ampicillin Sodium/ Sulbactam Sodium 100 ml @ 100 mls/hr Q6H IVPB Last administered on 01/21/17 08:34; Admin Dose 100 MLS/HR; Start 01/18/17 at 20:00 Acetaminophen (Ofirmev 1000mg/ 100ml Iv) 100 ml @ 400 mls/hr Q4 PRN IVPB FEVER GREATER THAN 100.6; Start 01/19/17 at 00:30 Hydralazine HCl (Apresoline) 10 mg Q4H PRN IV hypertension Last administered on 01/19/17 01:45; Admin Dose 10 MG; Start 01/19/17 at 01:00 Labetalol HCl (Labetalol) 20 mg Q3 PRN IV ELEVATED BLOOD PRESSURE; Start at 02:30 Labetalol HCl 10 mg 10 mg Q3 PRN IV ELEVATED BLOOD PRESSURE Last administered on 01/19/17 06:50; Admin Dose 10 MG; Start 01/19/17 at 02:30 Propofol (Diprivan) 100 ml @ 2.295 mls/ hr Q12H IV Last administered on 05:09; Admin Dose 6.885 MLS/HR; Start 01/19/17 at 08:00 Diagnostic Test (Pha) (Accu-Chek) 1 ea 02 XX ; Start 01/20/17 at 02:00 Insulin Aspart (Novolog Insulin Pen) NOVOLOG *MILD* ALGORI... Q4 SC Last administered on 01/21/17 08:48; Admin Dose 1 UNIT; Start 01/19/17 at 09:00 Miscellaneous Information 1 ea NOTE XX ; Start 01/19/17 at 09:00 Glucose (Glutose) 15 gm Q15M PRN PO DECREASED GLUCOSE; Start 01/19/17 at 09:00 Glucose (Glutose) 22.5 gm Q15M PRN PO DECREASED GLUCOSE; Start 01/19/17 at 09:00 Dextrose (D50w Syringe) 25 ml Q15M PRN IV DECREASED GLUCOSE; Start 01/19/17 at 09:00 Dextrose (D50w Syringe) 50 ml Q15M PRN IV DECREASED GLUCOSE; Start 01/19/17 at 09:00 Glucagon (Glucagen) 1 mg Q15M PRN IM DECREASED GLUCOSE; Start 01/19/17 at 09:00 Glucose (Glutose) 15 gm Q15M PRN BUCCAL DECREASED GLUCOSE; Start 01/19/17 at 09: 00 IV Flush 10 ml 10 ml PRN PRN IV FLUSH LINE; Start 01/19/17 at 12:00 Ceftriaxone Sodium (Rocephin) 50 ml @ 100 mls/hr Q12H IVPB Last administered on 01/21/17 05:01; Admin Dose 100 MLS/HR; Start 01/20/17 at 05:00 Diphenhydramine HCl (Benadryl Liquid Cup) 25 mg QHS PRN NGT ITCHING; Start 01/19 at 21:00 Hydralazine HCl (Apresoline) 25 mg Q4H PRN NGT hypertension; Start 01/19/17 at 20:30 Acetaminophen/ Hydrocodone Bitart ([place] (5/325)) 1 tab Q6H PRN NGT MODERATE PAIN LEVEL 4-6; Start 01/20/17 at 02:30 Loratadine (Claritin) 10 mg DAILY NGT Last administered on 01/21/17 08:34; Admin Dose 10 MG; Start 01/20/17 at 09:00 Magnesium Hydroxide (Milk Of Mag) 30 ml DAILY PRN NGT CONSTIPATION; Start at 20:30 Metoprolol Tartrate (Lopressor) 25 mg BID NGT Last administered on 01/21/17 08: 28; Admin Dose 25 MG; Start 01/19/17 at 21:00 Acetaminophen (Tylenol Liquid) 1,000 mg Q4H PRN NGT PAIN AND OR ELEVATED TEMP; Start 01/19/17 at 20:30; Status Future Hold Docusate Sodium (Colace Liquid Cup) 100 mg TID NGT Last administered on 08:28; Admin Dose 100 MG; Start 01/19/17 at 21:00 Lorazepam 2 mg 2 mg Q6H PRN IV before LP and MRI Last administered on 01/20/17 00:00; Admin Dose 2 MG; Start 01/20/17 at 00:00 Fentanyl (Sublimaze) 100 ml @ 2.5 mls/hr TITRATE IV Last administered on 08:21; Admin Dose 10 MLS/HR; Start 01/20/17 at 10:00 Miscellaneous Information (*Rx Drug Level Order Reminder*) VANCOMYCIN TROUGH 01/21 AT 1500 ONCE ONCE XX ; Start 01/21/17 at 15:00; Stop 01/21/17 at 15:01 Lansoprazole 30 mg 30 mg DAILY@06 NGT Last administered on 01/21/17t 05:09; Admin Dose 30 MG; Start 01/21/17 at 06:00 Norepinephrine 16 mg/Dextrose 500 ml @ 1.87 mls/hr TITRATE IV ; Start 01/20/17 at 17:30 Potassium Chloride (KCl 40 MEQ/250 ML NS) 250 ml @ 62.5 mls/hr ONCE ONCE IVPB Last administered on 01/21/17t 07:47; Admin Dose 62.5 MLS/HR; Start 01/21/17 at 07:00; Stop 01/21/17 at 10:59 Insulin Glargine (Lantus) 4 unit DAILY@08 SC ; Start 01/21/17 at 08:11 Assessment/Plan Chief Complaint/Hosp Course IMPRESSION: 1. Hypoxemic respiratory failure likely secondary to a change in neurological status with alveolar hypoventilation and inability to protect airway. 2. Acute encephalopathy of unclear etiology. Concern for a possible primary central nervous system disorder, such as West Nile virus or viral encephalitis. Status post lumbar puncture. 3. Hypokalemia. PLAN: 1. Continue mechanical ventilation. 2. Await lumbar puncture results 3. ID recs 4. DVT and GI prophylaxis. 5. Replace K. 6. Trial precedex instead of propofol. dw PMD cc 40 mins. Problems: CAROL DÍAZ MD, [facility] Jan 21, 2017 10:13
[2017-01-21] MEDS: INSULIN GLARGINE [LANtus] 3 ML PEN SC SCH (10:19)
[2017-01-21] MEDS: DEXMEDETOMIDINE HCL 200 MCG in SOD CHLORIDE 0.9% 48 ML IV SCH ×2 (12:32→20:39)
--- NOTE | 2017-01-21 13:26 | CONS ---
Date/Time of Note Date/Time of Note DATE: 01/21/17 TIME: 13:25 Consult Date/Type/Reason Admit Date/Time Jan 17, 2017 at 17:33 Type of Consultation: Rheum Objective Vital Signs Date Time Temp Pulse Resp B/P Pulse Ox O2 Delivery O2 Flow Rate FiO2 01/21/17 11:30 71 19 108/68 96 Mechanical Ventilator 01/21/17 11:00 98.2 01/21/17 09:00 40 01/19/17 01:30 1.0 Intake and Output 01/20/17 01/20/17 01/21/17 15:00 23:00 07:00 Intake Total 807.565 ml 1482.335 ml 1005.075 ml Output Total 318 ml 284 ml 225 ml Balance 489.565 ml 1198.335 ml 780.075 ml Exam GENERAL: Intubated, sedated; HEENT: ET Tube in place NECK: No lymphadenopathy. No thyroid enlargement. HEART: S1, S2. Regular rate and rhythm. LUNGS: Clear bilaterally. ABDOMEN: Soft, slightly overweight, nontender. EXTREMITIES: No clubbing, cyanosis, no edema. MUSCULOSKELETAL: No joint effusions. SKIN: No rash. Results/Medications Result Diagram: 01/21/17 0500 01/21/17 0500 Results 24 hrs Laboratory Tests Test 01/20/17 17:30 01/20/17 20:44 01/21/17 00:34 01/21/17 05:00 Bedside Glucose 178 207 182 White Blood Count 15.8 H Red Blood Count 3.42 L Hemoglobin 9.9 L Hematocrit 26.7 L Mean Corpuscular Volume 78.1 L Mean Corpuscular Hemoglobin 28.9 L Mean Corpuscular Hemoglobin Concent 37.1 H Red Cell Distribution Width 15.8 H Platelet Count 207 Mean Platelet Volume 11.0 H Neutrophils % 90.1 H Lymphocytes % 1.8 L Monocytes % 6.9 Eosinophils % 0.0 Basophils % 0.1 Nucleated Red Blood Cells % 0.0 Neutrophils # (Manual) 14.2 H Lymphocytes # 0.3 L Monocytes # 1.1 H Eosinophils # 0.0 Basophils # 0.0 Nucleated Red Blood Cells # 0.0 Sodium Level 139 Potassium Level 2.9 *L Chloride Level 111 H Carbon Dioxide Level 22 Anion Gap 9 # Blood Urea Nitrogen 37 H Creatinine 2.42 H Glucose Level 171 Calcium Level 8.3 L Phosphorus Level 3.1 Magnesium Level 2.4 Test 01/21/17 05:03 01/21/17 08:39 01/21/17 10:16 Bedside Glucose 211 161 161 Medications Current Medications Ondansetron HCl (Zofran Inj) 4 mg Q6H PRN IV NAUSEA AND/OR VOMITING; Start 01/17 at 14:30 Morphine Sulfate (morphine) 2 mg Q4H PRN IV SEVERE PAIN LEVEL 7-10; Start at 14:30 Docusate Sodium (Colace) 100 mg Q12H PRN PO CONSTIPATION; Start 01/17/17 at 14: 30 Heparin Sodium (Porcine) (Heparin (5000 Units/0.5 ml)) 5,000 unit Q12 SC Last administered on 01/19/17 09:49; Admin Dose 5,000 UNIT; Start 01/17/17 at 21:00; Status Future Hold Febuxostat (Uloric) 40 mg DAILY PO Last administered on 01/21/17 08:28; Admin Dose 40 MG; Start 01/18/17 at 09:00 Diphenhydramine HCl (Benadryl) 25 mg Q4H PRN IV CHILLS; Start 01/17/17 at 18:30 Diltiazem HCl (Cardizem Cd) 240 mg DAILY PO Last administered on 01/21/17 08:29 ; Admin Dose 240 MG; Start 01/17/17 at 18:30 Nicotine 1 patch 1 patch DAILY TRANSDERM Last administered on 01/21/17 08:28; Admin Dose 1 PATCH; Start 01/18/17 at 10:30 Vancomycin HCl 250 ml @ 125 mls/hr Q24H IVPB Last administered on 01/20/17 16: 02; Admin Dose 125 MLS/HR; Start 01/19/17 at 16:00 Acyclovir 750 mg/ Sodium Chloride 150 ml @ 100 mls/hr Q12H IVPB Last administered on 01/21/17 06:14; Admin Dose 100 MLS/HR; Start 01/18/17 at 18:00 Ampicillin Sodium/ Sulbactam Sodium 100 ml @ 100 mls/hr Q6H IVPB Last administered on 01/21/17 08:34; Admin Dose 100 MLS/HR; Start 01/18/17 at 20:00 Acetaminophen (Ofirmev 1000mg/ 100ml Iv) 100 ml @ 400 mls/hr Q4 PRN IVPB FEVER GREATER THAN 100.6; Start 01/19/17 at 00:30 Hydralazine HCl (Apresoline) 10 mg Q4H PRN IV hypertension Last administered on 01/19/17 01:45; Admin Dose 10 MG; Start 01/19/17 at 01:00 Labetalol HCl (Labetalol) 20 mg Q3 PRN IV ELEVATED BLOOD PRESSURE; Start at 02:30 Labetalol HCl 10 mg 10 mg Q3 PRN IV ELEVATED BLOOD PRESSURE Last administered on 01/19/17 06:50; Admin Dose 10 MG; Start 01/19/17 at 02:30 Propofol (Diprivan) 100 ml @ 2.295 mls/ hr Q12H IV Last administered on 05:09; Admin Dose 6.885 MLS/HR; Start 01/19/17 at 08:00 Diagnostic Test (Pha) (Accu-Chek) 1 ea 02 XX ; Start 01/20/17 at 02:00 Insulin Aspart (Novolog Insulin Pen) NOVOLOG *MILD* ALGORI... Q4 SC Last administered on 01/21/17 08:48; Admin Dose 1 UNIT; Start 01/19/17 at 09:00 Miscellaneous Information 1 ea NOTE XX ; Start 01/19/17 at 09:00 Glucose (Glutose) 15 gm Q15M PRN PO DECREASED GLUCOSE; Start 01/19/17 at 09:00 Glucose (Glutose) 22.5 gm Q15M PRN PO DECREASED GLUCOSE; Start 01/19/17 at 09:00 Dextrose (D50w Syringe) 25 ml Q15M PRN IV DECREASED GLUCOSE; Start 01/19/17 at 09:00 Dextrose (D50w Syringe) 50 ml Q15M PRN IV DECREASED GLUCOSE; Start 01/19/17 at 09:00 Glucagon (Glucagen) 1 mg Q15M PRN IM DECREASED GLUCOSE; Start 01/19/17 at 09:00 Glucose (Glutose) 15 gm Q15M PRN BUCCAL DECREASED GLUCOSE; Start 01/19/17 at 09: 00 IV Flush 10 ml 10 ml PRN PRN IV FLUSH LINE; Start 01/19/17 at 12:00 Ceftriaxone Sodium (Rocephin) 50 ml @ 100 mls/hr Q12H IVPB Last administered on 01/21/17 05:01; Admin Dose 100 MLS/HR; Start 01/20/17 at 05:00 Diphenhydramine HCl (Benadryl Liquid Cup) 25 mg QHS PRN NGT ITCHING; Start 01/19 at 21:00 Hydralazine HCl (Apresoline) 25 mg Q4H PRN NGT hypertension; Start 01/19/17 at 20:30 Acetaminophen/ Hydrocodone Bitart ([place] (5/325)) 1 tab Q6H PRN NGT MODERATE PAIN LEVEL 4-6; Start 01/20/17 at 02:30 Loratadine (Claritin) 10 mg DAILY NGT Last administered on 01/21/17 08:34; Admin Dose 10 MG; Start 01/20/17 at 09:00 Magnesium Hydroxide (Milk Of Mag) 30 ml DAILY PRN NGT CONSTIPATION; Start at 20:30 Metoprolol Tartrate (Lopressor) 25 mg BID NGT Last administered on 01/21/17 08: 28; Admin Dose 25 MG; Start 01/19/17 at 21:00 Acetaminophen (Tylenol Liquid) 1,000 mg Q4H PRN NGT PAIN AND OR ELEVATED TEMP; Start 01/19/17 at 20:30; Status Future Hold Docusate Sodium (Colace Liquid Cup) 100 mg TID NGT Last administered on 13:16; Admin Dose 100 MG; Start 01/19/17 at 21:00 Lorazepam 2 mg 2 mg Q6H PRN IV before LP and MRI Last administered on 01/20/17 00:00; Admin Dose 2 MG; Start 01/20/17 at 00:00 Fentanyl (Sublimaze) 100 ml @ 2.5 mls/hr TITRATE IV Last administered on 08:21; Admin Dose 10 MLS/HR; Start 01/20/17 at 10:00 Miscellaneous Information (*Rx Drug Level Order Reminder*) VANCOMYCIN TROUGH 01/21 AT 1500 ONCE ONCE XX ; Start 01/21/17 at 15:00; Stop 01/21/17 at 15:01 Lansoprazole 30 mg 30 mg DAILY@06 NGT Last administered on 01/21/17 05:09; Admin Dose 30 MG; Start 01/21/17 at 06:00 Norepinephrine/ Dextrose (Levophed/D5W) 500 ml @ 1.87 mls/hr TITRATE IV ; Start 01/20/17 at 17:30 Insulin Glargine 4 unit 4 unit DAILY@08 SC Last administered on 01/21/17 10:19 ; Admin Dose 4 UNIT; Start 01/21/17 at 08:11 Dexmedetomidine HCl/Sodium Chloride (Precedex/NS) 50 ml @ 3.82 mls/hr TITRATE IV Last administered on 01/21/17 12:32; Admin Dose 3.82 MLS/HR; Start 01/21/17 at 12:00 Assessment/Plan Chief Complaint/Hosp Course IMPRESSION AND PLAN: 66-year-old male with history of hypertension, adenocarcinoma of the lung, gout and 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 He has been intubated after having some respiratory distress that pulmonary feels is more central in etiology 1. Respiratory failure- most likely central in Etiology. Now with evidence of either hospital aquired pna or aspiration pna on CXR. 2. Fevers now resolved on antibiotics. Although they can always be secondary to an autoimmune condition, namely Abbi's in this case, at this point given the elevated white count and absence of any other problems in terms of lung or kidney or abdomen which is the patient's presenting issue with Abbi's, Thorough ID work-up under way and cultures of CSF and others still pending. Patient had been given some S=IV steroids without any change. 3. Abbi's. The patient is currently on Rituxan which is an immunosuppressant. Again, this puts him at risk for opportunistic infections, so for this reason, I would consider him more at risk of having infection as a cause of a fever. Also his Abbi's has been very well controlled since his diagnosis, he has never had a flare, he has never been hospitalized, with Cytoxan and now Rituxan, I feel like it is unlikely that it would be a Abbi's flare. 4 History of gout. Uric acid levels are low. There is no joint swelling. No joint pain. Therefore, we will just follow him. 5 Acute on Chronic kidney disease, likely secondary to infection. I Problems: SHIRLEY MORALES MD Jan 21, 2017 13:26 SHIRLEY MORALES MD Jan 21, 2017 13:26
[2017-01-21 15:08] LABS: ADENOVIRUS ANTIBODY <1:8
--- NOTE | 2017-01-21 16:20 | PN ---
DATE: 01/21/2017 SUBJECTIVE DATA: No acute events overnight. No fevers. Patient is lying comfortably in bed. He is intubated, sedated with propofol drip. LABORATORY AND DIAGNOSTIC DATA: WBC 15.8, H and H 9.9 and 26.7, platelets 207; neutrophils 90.1, no bands. Sodium 139, potassium 2.9, BUN 37, creatinine 2.42. Microbiology: Blood culture, urine culture, and CSF culture negative. Guerda ink negative. HIV serology negative. Pending West Nile virus IgM and antibody, pending cocci and CMV. Indwelling endotracheal tube, NG tube, Darden catheter, PICC line antimicrobials. ANTIMICROBIALS: 1. IV Rocephin. 2. Vancomycin. 3. Acyclovir. 4. Ampicillin. OBJECTIVE DATA: VITAL SIGNS: Temperature 98.2, pulse 81, respirations 22, blood pressure 136/74, saturation 95 percent on vent. GENERAL: This is a well-developed, well-nourished, elderly man, who is intubated, sedated, and in no distress. HEENT: Head atraumatic, normocephalic. Sclerae anicteric. Buccal mucosa dry. NECK: Supple. CHEST: Rise symmetrical. Breath sounds diminished at the bases. HEART: S1, S2. ABDOMEN: Soft, bowel sounds present. EXTREMITIES: No cyanosis. ASSESSMENT: 1. Severe sepsis with fevers and acute encephalopathy. 2. Bilateral mastoid air cell fluid opacification per MRI, possibly mastoiditis. 3. Acute respiratory failure with evidence of new infiltrate per chest x-ray. 4. History of early stage of lung cancer. 5. History of Louis's disease. 6. History of hypertension. 7. Chronic kidney disease. 8. Leukocytosis, patient was on steroids that were discontinued yesterday morning. PLAN: Patient is hemodynamically stable. Afebrile. Again, all his cultures negative. We are going to discontinue Rocephin and Unasyn. We will keep him on acyclovir until we get HSV by PCR back. We will start him on Zosyn for concern of aspiration pneumonia versus healthcare acquired given new radiographic finding of infiltrate per chest x-ray this morning. We will send sputum cultures. Await for final workup. Follow recommendations of consultants. Dictated By: Giancarlo Hodges NP /[email or web address]/grace /Document#: [id number]
[2017-01-21 18:55] LABS: ADD UMIC YES; UR ASCORBIC ACID NEGATIVE (NEGATIVE); UR BILIRUBIN (Dip) NEGATIVE (NEGATIVE); UR BLOOD (Dip) 1+ mg/dL (NEGATIVE); UR CLARITY CLEAR (CLEAR); UR COLOR STRAW (YELLOW); UR GLUCOSE (Dip) NEGATIVE (NEGATIVE); UR KETONES (Dip) NEGATIVE (NEGATIVE); UR LEUKOCYTE ESTERASE (Dip) NEGATIVE Leu/ul (NEGATIVE); UR MUCUS FEW /HPF (NONE SEEN); UR NITRITE (Dip) NEGATIVE (NEGATIVE); UR RBC 1 /HPF (0-5); UR SPECIFIC GRAVITY (Dip) 1.012 (1.003-1.030); UR TOTAL PROTEIN (Dip) 2+ mg/dl (NEGATIVE); UR UROBILINOGEN (Dip) NEGATIVE (NEGATIVE)
--- NOTE | 2017-01-21 19:08 | CONS ---
DATE OF ADMISSION: 01/17/2017 DATE OF CONSULTATION: 01/21/2017 REASON FOR CONSULTATION: Acute kidney injury. 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 The patient apparently during the last week has been complaining of generalized weakness, decreased p.o. intake, increased lethargy, with noted fever who presented to the emergency room with an elevated creatinine 2.3 from his previous baseline of 1.7 and white count of 10.1. The patient was subsequently admitted to telemetry, unfortunately the patient became hypoxemic, went into respiratory failure, was intubated and transferred to the intensive care unit. The patient was started on broad-spectrum antibiotics. Has been seen by neurologist, Dr. Collins Killian. The patient is being treated with IV antibiotics and IV antiviral therapy for possible viral encephalitis. The patient had a lumbar puncture done for evaluation of encephalomeningitis. Serologies for West Nile have been sent and are pending. 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 The patient was initially diagnosed 7 years ago. At that time, the patient was initiated on Cytoxan therapy but did not have a good clinical response. He was then placed on Rituxan and had excellent clinical response. 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 Patient's renal function has been stable and according to patient's family a biopsy was performed approximately 2 years ago that showed quiescent of disease, no evidence of active inflammatory process or presence. The patient does have underlying proteinuria which is longstanding. During this hospital course, the patient's creatinine has been fluctuating between 2 to 2.42 mg/dL. The patient has been having adequate urinary output. Patient has had a hemodynamics fluctuations during the hospital course but has not been on presser support. The patient's initial urinalysis shows no pyuria, hematuria, +3 proteinuria consistent with underlying history of chronic kidney disease. PAST MEDICAL HISTORY: Abbi's granulomatosis, history of ANCA- associated vasculitis, history of hypertension, gout, history of lung cancer, status post resection 9 years ago. ALLERGIES: NO KNOWN DRUG ALLERGIES. MEDICATION: The patient's medications have been reviewed. FAMILY HISTORY: No family history of kidney disease or heart disease. SOCIAL HISTORY: Does not smoke or do drugs. REVIEW OF SYSTEMS: Unable to do adequate review of systems as patient is intubated. Pertinent positives obtained by review of medical records, speaking to hospital staff, stated in HPI, otherwise negative. PAST SURGICAL HISTORY: Patient had a lobectomy 9 years ago for lung cancer. PHYSICAL EXAMINATION: VITAL SIGNS: Blood pressure is 158/80, respiration is 22, pulse 90, temperature 98.8. INTAKE AND OUTPUT: Patient had 1 L in, 195 mL out. HEENT: Head is normocephalic. Pupils are reactive to light. NECK: Supple. CARDIAC: Heart is tachycardic. LUNGS: Diminished breath sounds at base. ABDOMEN: Soft, nontender to palpation. EXTREMITIES: No clubbing, cyanosis. Trace edema. DERMATOLOGIC: No rashes. MUSCULOSKELETAL: No obvious joint effusions. NEUROLOGIC: Limited exam as patient is obtunded. LABORATORY: Shows sodium 139, potassium 2.9, chloride 111, BUN 37, creatinine 2.42. White count is 15.8, hemoglobin 9.9, hematocrit 26.7, and platelet count is 207. Urinalysis reviewed, it showed RBCs 2 WBCs 1, few bacteria, pgwkzai-[id number]-[id number] ratio approximately 5 grams/gram of creatinine. IMAGING STUDIES: Abdominal ultrasound reported kidneys with normal size, normal echogenicity and morphology. Patient's chest x-ray on 01/21/2017, showed left basilar infiltrate. No other changes. MRI of the brain showed no acute pathology. IMPRESSION AND PLAN: This is a 66-year-old male who presents with: 1. Nonoliguric acute kidney injury on top of chronic kidney disease stage III, with previous baseline creatinine around 1.7 mg/dL per family. Etiology of current acute kidney injury is likely multifactorial secondary to hemodynamics, septic acute kidney injury. There is very low suspicion for active glomerulonephritis as patient's initial urinalysis is bland. No evidence of active sediment. There is significant proteinuria which is likely chronic given patient's previous history of chronic kidney disease and ANCA associated glomerulonephritis. At this point, would continue current treatment plan. Continue supportive care. Continue renally dose all meds. Continue intravenous antibiotics. Will repeat a urinalysis. Monitor closely. Will also evaluated the urine under microscopy to see if there is any evidence of dysmorphic RBCs. 2. Hypokalemia. Patient is status post potassium chloride supplementation. 3. Anemia. Will monitor H and H levels. 4. Mineral bone disorder. Will monitor calcium and phosphorus levels. No need for phosphate binders. 5. Severe sepsis, unclear etiology, possibly pneumonia, questionable encephalomeningitis. Patient is on broad-spectrum antibiotics on antiviral therapy. Cultures have been reviewed. Will follow up lumbar puncture cultures. Follow up Infectious Disease. 6. Ventilator-dependent respiratory failure. Vent settings and ABGs were reviewed. Follow up with Pulmonary. 7. History of Abbi's granulomatosis. Patient is on Rituxan. No evidence of active flare per Rheumatology. Will follow up their recommendations. 8. Gastrointestinal and deep venous thrombosis prophylaxis. Continue PPI and sequential leg squeezers. 9. Acute encephalopathy. Etiology is likely secondary to sepsis, possible encephalomeningitis as stated above. Will continue workup. Continue current treatment plan. Follow up with Neurology. Thank you, Dr. Triplett for this interesting consult. It will be a pleasure to follow patient with you throughout the hospital course. Dictated By: Jim Sierra DO /eladio/grace Miramontes#: [id number]/Document#: [id number]
[2017-01-21] MEDS: PIPER-TAZO 3.375 GM IV (PMX) 100 ML IVPB SCH (22:25)
[2017-01-21 22:28] LABS: HISTOPLASMA GALACTOMANNAN AG U <0.5 ng/mL
--- NOTE | 2017-01-21 23:06 | CONS ---
Date/Time of Note Date/Time of Note DATE: 01/21/17 TIME: 22:58 Consult Date/Type/Reason Admit Date/Time Jan 17, 2017 at 17:33 Initial Consult Date Type of Consultation: neurology Objective Vital Signs Date Time Temp Pulse Resp B/P Pulse Ox O2 Delivery O2 Flow Rate FiO2 01/21/17 20:00 100 01/21/17 18:00 22 156/85 95 Mechanical Ventilator 01/21/17 16:53 50 01/21/17 16:00 98.8 01/19/17 01:30 1.0 Intake and Output 01/20/17 01/20/17 01/21/17 15:00 23:00 07:00 Intake Total 807.565 ml 1482.335 ml 1005.075 ml Output Total 318 ml 284 ml 225 ml Balance 489.565 ml 1198.335 ml 780.075 ml Exam NEUROLOGIC: Patient is lethargic. Sedated. opens eyes to stimulation, moves UE. Does not follow commands. No definite response to visual threat bilaterally. Pupils about 2 mm bilaterally. Extraocular movements absent spontaniously. Corneal reflexes present bilaterally, as well as gag. Motor strength examination with response to pain in upper extremities patient has some withdrawal, and in lower extremities as well. Increased tone in upper extremities predominantly, with cogwheeling. Patient moves at least 3- out of 5. Grimaces to pain as well. Deep tendon reflexes, 2+ upper extremities and knees, absent ankle jerks. Downgoing response to plantar stimulation bilaterally. Coordination examination shows postural tremor at times, myoclonic jerks in upper extremities. Severe nuchal rigidity Results/Medications Result Diagram: 01/21/17 0500 01/21/17 0500 Results 24 hrs Laboratory Tests Test 01/21/17 00:34 01/21/17 05:00 01/21/17 05:03 01/21/17 08:39 Bedside Glucose 182 211 161 White Blood Count 15.8 H Red Blood Count 3.42 L Hemoglobin 9.9 L Hematocrit 26.7 L Mean Corpuscular Volume 78.1 L Mean Corpuscular Hemoglobin 28.9 L Mean Corpuscular Hemoglobin Concent 37.1 H Red Cell Distribution Width 15.8 H Platelet Count 207 Mean Platelet Volume 11.0 H Neutrophils % 90.1 H Lymphocytes % 1.8 L Monocytes % 6.9 Eosinophils % 0.0 Basophils % 0.1 Nucleated Red Blood Cells % 0.0 Neutrophils # (Manual) 14.2 H Lymphocytes # 0.3 L Monocytes # 1.1 H Eosinophils # 0.0 Basophils # 0.0 Nucleated Red Blood Cells # 0.0 Sodium Level 139 Potassium Level 2.9 *L Chloride Level 111 H Carbon Dioxide Level 22 Anion Gap 9 # Blood Urea Nitrogen 37 H Creatinine 2.42 H Glucose Level 171 Calcium Level 8.3 L Phosphorus Level 3.1 Magnesium Level 2.4 Test 01/21/17 10:16 01/21/17 13:18 01/21/17 17:34 01/21/17 17:39 Bedside Glucose 161 118 123 Urine Color STRAW Urine Clarity CLEAR Urine pH 6.0 Urine Specific [place] 1.012 Urine Ketones NEGATIVE Urine Nitrite NEGATIVE Urine Bilirubin NEGATIVE Urine Urobilinogen NEGATIVE Urine Leukocyte Esterase NEGATIVE Urine Microscopic RBC 1 Urine Microscopic WBC 1 Urine Mucus FEW A Urine Hemoglobin 1+ H Urine Random Creatinine 28.33 Urine Random Sodium 140 H Urine Glucose NEGATIVE Urine Total Protein 162.0 H Test 01/21/17 20:37 Bedside Glucose 146 Medications Current Medications Ondansetron HCl (Zofran Inj) 4 mg Q6H PRN IV NAUSEA AND/OR VOMITING; Start 01/17 at 14:30 Morphine Sulfate (morphine) 2 mg Q4H PRN IV SEVERE PAIN LEVEL 7-10; Start at 14:30 Docusate Sodium (Colace) 100 mg Q12H PRN PO CONSTIPATION; Start 01/17/17 at 14: 30 Heparin Sodium (Porcine) (Heparin (5000 Units/0.5 ml)) 5,000 unit Q12 SC Last administered on 01/19/17 09:49; Admin Dose 5,000 UNIT; Start 01/17/17 at 21:00; Status Future Hold Febuxostat (Uloric) 40 mg DAILY PO Last administered on 01/21/17 08:28; Admin Dose 40 MG; Start 01/18/17 at 09:00 Diphenhydramine HCl (Benadryl) 25 mg Q4H PRN IV CHILLS; Start 01/17/17 at 18:30 Diltiazem HCl (Cardizem Cd) 240 mg DAILY PO Last administered on 01/21/17 08:29 ; Admin Dose 240 MG; Start 01/17/17 at 18:30 Nicotine 1 patch 1 patch DAILY TRANSDERM Last administered on 01/21/17 08:28; Admin Dose 1 PATCH; Start 01/18/17 at 10:30 Acyclovir 750 mg/ Sodium Chloride 150 ml @ 100 mls/hr Q12H IVPB Last administered on 01/21/17 18:29; Admin Dose 100 MLS/HR; Start 01/18/17 at 18:00 Acetaminophen (Ofirmev 1000mg/ 100ml Iv) 100 ml @ 400 mls/hr Q4 PRN IVPB FEVER GREATER THAN 100.6; Start 01/19/17 at 00:30 Hydralazine HCl (Apresoline) 10 mg Q4H PRN IV hypertension Last administered on 01/19/17 01:45; Admin Dose 10 MG; Start 01/19/17 at 01:00 Labetalol HCl (Labetalol) 20 mg Q3 PRN IV ELEVATED BLOOD PRESSURE; Start at 02:30 Labetalol HCl 10 mg 10 mg Q3 PRN IV ELEVATED BLOOD PRESSURE Last administered on 01/19/17 06:50; Admin Dose 10 MG; Start 01/19/17 at 02:30 Propofol (Diprivan) 100 ml @ 2.295 mls/ hr Q12H IV Last administered on 05:09; Admin Dose 6.885 MLS/HR; Start 01/19/17 at 08:00 Diagnostic Test (Pha) (Accu-Chek) 1 ea 02 XX ; Start 01/20/17 at 02:00 Insulin Aspart (Novolog Insulin Pen) NOVOLOG *MILD* ALGORI... Q4 SC Last administered on 01/21/17 21:02; Admin Dose 1 UNIT; Start 01/19/17 at 09:00 Miscellaneous Information 1 ea NOTE XX ; Start 01/19/17 at 09:00 Glucose (Glutose) 15 gm Q15M PRN PO DECREASED GLUCOSE; Start 01/19/17 at 09:00 Glucose (Glutose) 22.5 gm Q15M PRN PO DECREASED GLUCOSE; Start 01/19/17 at 09:00 Dextrose (D50w Syringe) 25 ml Q15M PRN IV DECREASED GLUCOSE; Start 01/19/17 at 09:00 Dextrose (D50w Syringe) 50 ml Q15M PRN IV DECREASED GLUCOSE; Start 01/19/17 at 09:00 Glucagon (Glucagen) 1 mg Q15M PRN IM DECREASED GLUCOSE; Start 01/19/17 at 09:00 Glucose (Glutose) 15 gm Q15M PRN BUCCAL DECREASED GLUCOSE; Start 01/19/17 at 09: 00 IV Flush (NS 10 ml) 10 ml PRN PRN IV FLUSH LINE; Start 01/19/17 at 12:00 Diphenhydramine HCl (Benadryl Liquid Cup) 25 mg QHS PRN NGT ITCHING; Start 01/19 at 21:00 Hydralazine HCl (Apresoline) 25 mg Q4H PRN NGT hypertension; Start 01/19/17 at 20:30 Acetaminophen/ Hydrocodone Bitart ([place] (5/325)) 1 tab Q6H PRN NGT MODERATE PAIN LEVEL 4-6; Start 01/20/17 at 02:30 Loratadine (Claritin) 10 mg DAILY NGT Last administered on 01/21/17 08:34; Admin Dose 10 MG; Start 01/20/17 at 09:00 Magnesium Hydroxide (Milk Of Mag) 30 ml DAILY PRN NGT CONSTIPATION; Start at 20:30 Metoprolol Tartrate (Lopressor) 25 mg BID NGT Last administered on 01/21/17 20: 38; Admin Dose 25 MG; Start 01/19/17 at 21:00 Acetaminophen (Tylenol Liquid) 1,000 mg Q4H PRN NGT PAIN AND OR ELEVATED TEMP; Start 01/19/17 at 20:30; Status Future Hold Docusate Sodium (Colace Liquid Cup) 100 mg TID NGT Last administered on 20:38; Admin Dose 100 MG; Start 01/19/17 at 21:00 Lorazepam 2 mg 2 mg Q6H PRN IV before LP and MRI Last administered on 01/20/17 00:00; Admin Dose 2 MG; Start 01/20/17 at 00:00 Fentanyl (Sublimaze) 100 ml @ 2.5 mls/hr TITRATE IV Last administered on 17:17; Admin Dose 10 MLS/HR; Start 01/20/17 at 10:00 Lansoprazole 30 mg 30 mg DAILY@06 NGT Last administered on 01/21/17 05:09; Admin Dose 30 MG; Start 01/21/17 at 06:00 Norepinephrine/ Dextrose (Levophed/D5W) 500 ml @ 1.87 mls/hr TITRATE IV ; Start 01/20/17 at 17:30 Insulin Glargine 4 unit 4 unit DAILY@08 SC Last administered on 01/21/17 10:19 ; Admin Dose 4 UNIT; Start 01/21/17 at 08:11 Dexmedetomidine HCl 200 mcg/ Sodium Chloride 50 ml @ 3.82 mls/hr TITRATE IV Last administered on 01/21/17 20:39; Admin Dose 7.65 MLS/HR; Start 01/21/17 at 12 :00 Piperacillin Sod/ Tazobactam Sod (Zosyn 3.375gm/ 100 ml (Pmx)) 100 ml @ 200 mls /hr Q8 IVPB Last administered on 01/21/17 22:25; Admin Dose 200 MLS/HR; Start 01/21/17 at 22:00 Assessment/Plan Chief Complaint/Hosp Course IMPRESSION: A 66-year-old gentleman with several days of fevers and generalized weakness, dizziness, a few episodes of nausea, transient shoulder pain. Patient is immunosuppressed and he developed mental status changes, became confused, and complained of diplopia; in the hospital, has also developed noticeable nuchal rigidity, stridor, has to be intubated. Symptoms may reflect viral meningoencephalitis.(given LP results and normal MRI ) Still on acyclovir waiting for HSV PCR. West Nile pending. Severe myoclonus UE, at times gets better with Keppra 250 mg bid, will tr. No definite seizures, EEG c/w encephalopathy. Will try to avoid sedation when possible Problems: LALO MONACO MD Jan 21, 2017 23:06
[2017-01-22] VITALS (81 sets, daily range): BP systolic 88–232; BP diastolic 58–168; PULSE 67–139; RESP 16–34
[2017-01-22] MEDS: DEXMEDETOMIDINE HCL 200 MCG in SOD CHLORIDE 0.9% 48 ML IV SCH ×5 (00:15→22:15)
[2017-01-22] MEDS: LEVETIRACETAM IV 250 MG in SOD CHLORIDE 0.9% 100 ML IVPB SCH ×3 (00:15→20:56)
[2017-01-22] MEDS ORDERED: FUROSEMIDE 20 MG INJ IV ONE (00:30)
[2017-01-22] MEDS: hydrALAzine 20 MG INJ IV PRN ×2 (01:14→16:20)
[2017-01-22] MEDS: INSULIN ASPART [NOVOLOG] 3 ML PEN SC SCH ×6 (01:20→21:02)
[2017-01-22] MEDS: FENTAnyl (DRIP) 1000 mcg/100mL 100 ML IV SCH ×2 (01:33→13:01)
[2017-01-22] MEDS: ACCU-CHEK XX SCH (02:00)
[2017-01-22] MEDS: ACETAMINOPHEN 1000MG/100ML IV 100 ML IVPB PRN ×2 (04:21→21:02)
[2017-01-22] MEDS: LANSOPRAZOLE 30 MG CAP NGT SCH (05:29)
[2017-01-22] MEDS: PIPER-TAZO 3.375 GM IV (PMX) 100 ML IVPB SCH ×3 (05:29→21:45)
[2017-01-22] MEDS: ACYCLOVIR 750 MG in SOD CHLORIDE 0.9% 150 ML IVPB SCH (05:29)
[2017-01-22 06:37] LABS: ABNORMAL IP MESSAGE 1; BASOPHILS % 0.1 % (0.0-2.0); HEMOGLOBIN 9.9 g/dl (14.0-18.0); LYMPHOCYTES # 0.4 10^3/ul (0.8-2.9); LYMPHOCYTES % 3.1 % (15.0-51.0); MEAN CORPUSCULAR HEMOGLOBIN 27.7 pg (29.0-33.0); MEAN CORPUSCULAR HGB CONC 35.4 g/dl (32.0-37.0); MEAN CORPUSCULAR VOLUME 78.2 fl (82.0-101.0); MEAN PLATELET VOLUME 11.4 fl (7.4-10.4); MONOCYTE # 1.1 10^3/ul (0.3-0.9); MONOCYTES % 10.1 % (0.0-11.0); NEUTROPHILS % 85.3 % (39.0-77.0); PLATELET COUNT 189 10^3/UL (140-415); POSITIVE DIFF @See below; RED BLOOD COUNT 3.58 10^6/ul (4.70-6.10); RED CELL DISTRIBUTION WIDTH 16.1 % (11.5-14.5); WHITE BLOOD COUNT 11.3 10^3/ul (4.8-10.8)
[2017-01-22 07:23] LABS: MAGNESIUM 2.3 mg/dl (1.7-2.5); PHOSPHORUS 2.6 mg/dl (2.5-4.9)
[2017-01-22 07:36] LABS: ALBUMIN 2.6 g/dl (3.3-4.9); ALBUMIN/GLOBULIN RATIO 1.36; CALCIUM 8.6 mg/dl (8.4-10.2); CREATININE 2.51 mg/dl (0.61-1.24); POTASSIUM 3.8 mmol/L (3.5-5.1); TOTAL PROTEIN 4.5 g/dl (6.1-8.1)
[2017-01-22 08:06] LABS: AADO2 Arterial 176.6 mmHg (7.0-24.0); Allen Test ACCEPTAB; Arterial Base Excess -3.7 mmol/L (-3.0-3); Arterial COHb 0.2 % (0.0-3.0); Arterial Fraction of Oxyhgb 93.5 % (93.0-99.0); Arterial HCO3 20.3 mmol/L (22.0-26.0); Arterial MetHb 0.3 % (0.0-1.5); Arterial Total Hemglobin 10.2 g/dl (12.0-18.0); MODE VENT - AC
[2017-01-22] MEDS: INSULIN GLARGINE [LANtus] 3 ML PEN SC SCH (08:42)
[2017-01-22] MEDS: FEBUXOSTAT 40 MG TABLET PO SCH ×2 (08:44→09:01)
[2017-01-22] MEDS: NICOTINE (14 MG/24 HR) PATCH TRANSDERM SCH (08:44)
[2017-01-22] MEDS: METOPROLOL 25 MG TAB NGT SCH ×2 (08:48→20:57)
[2017-01-22] MEDS: DILTIAZEM (CD) 240 MG CAP PO SCH (08:48)
--- NOTE | 2017-01-22 08:56 | RADRPT ---
PROCEDURE: XR Chest. CLINICAL INDICATION: Congestive heart failure. Pneumonia. . TECHNIQUE: Single frontal chest x-ray. COMPARISON: 01/21/2017 FINDINGS: Endotracheal tube, nasogastric tube, left arm PICC line in place unchanged. Left basilar atelectasis /infiltrate with small left pleural effusion is stable. .. The cardiomediastinal silhouette is unre markable. The osseous structures are intact. IMPRESSION: Stable left basilar atelectasis/infiltrate and small left pleural effusion. Tubes and lines unchanged.. RPTAT: JJ .Zach Schwartz MD, MD Date Time Electronically viewed and signed by .Zach Schwartz MD, MD on 01/22/2017 08:55 .L/
[2017-01-22] MEDS: DOCUSATE SODIUM 10 MG/ML (10ML CUP) NGT SCH ×3 (09:01→20:56)
[2017-01-22] MEDS: LORATADINE 10 MG TAB NGT SCH (09:03)
--- NOTE | 2017-01-22 09:26 | PN ---
DATE: 01/22/2017 SUBJECTIVE DATA: The patient remains critically ill, was given 1 dose of diuretics yesterday with excellent urinary output. No other events noted. No hemoptysis, hematemesis, hematochezia. OBJECTIVE DATA: VITAL SIGNS: Blood pressure is 96/60, respirations 20, pulse 69, temperature 100.1. HEENT: Head is normocephalic. NECK: Supple. HEART: Regular rate. LUNGS: Showed diminished breath sounds at the base. ABDOMEN: Soft, nontender to palpation. No rebound or guarding. EXTREMITIES: Negative for clubbing, cyanosis. Trace edema. DERMATOLOGIC: Clean. No rashes. MUSCULOSKELETAL: No joint effusion. NEUROLOGIC: No change in exam. MEDICATIONS: Reviewed. LABORATORY AND DIAGNOSTIC DATA: Shows sodium 144, potassium 3.8, chloride 114, BUN 45, creatinine 2.51. White count 11.3, hemoglobin 9.9, crit of 28.0 platelet count is 189. The patient's fungal cultures have been negative to date. ASSESSMENT AND PLAN: 1. Nonoliguric acute kidney injury on top of chronic kidney disease, stage 3, with previous baseline creatinine 1.7 mg/dL. Etiology of current acute kidney injury is multifactorial secondary to hemodynamics, possible septic acute kidney injury. There was no evidence of acute glomerulonephritis at this time. The patient's repeat urinalysis is bland. No evidence of active sediment. The patient's proteinuria is chronic. The patient's urine was also evaluated under mass microscopy where there was no evidence of dysmorphic red blood cells. At this point, we will continue current treatment, supportive care. Renally dose all medications. Avoid nephrotoxins. 2. Hypokalemia, improved. Continue to monitor, replete as needed. 3. Volume overload. The patient is status post Lasix with excellent response. Continue intermittent diuretics if needed. 4. Anemia. Monitor H and H levels. 5. Mineral bone disorder. Monitor calcium and phosphorus levels. 6. Severe sepsis. Etiology is unclear. Possible viral encephalitis. Questionable West Nile. Continue broad-spectrum antibiotics. Antibiotic therapy. Follow up with Neurology. Follow up with Infectious Disease. 7. Ventilatory-dependent respiratory failure. Vent settings reviewed. ABGs reviewed. Continue to monitor. Follow up with Pulmonary. 8. History of Abbi's granulomatosis. The patient is status post Rituxan. Continue to monitor. Follow up with Hematology. 9. Acute encephalopathy. Etiology is multifactorial, possible encephalitis. Continue current treatment plan as stated above. Follow up with Neurology. 10. Gastrointestinal and deep venous thrombosis prophylaxis. Continue proton pump inhibitor and sequential leg squeezes. Dictated By: Jim Sierra DO /eladio/jose /Document#: [id number]
[2017-01-22] MEDS: LORAZEPAM 2 MG INJ IV PRN ×2 (11:37→17:17)
[2017-01-22 11:56] LABS: HERPES SIMPLEX 1 DNA NOT DETECTED; HERPES SIMPLEX 2 DNA NOT DETECTED; HERPES SIMPLEX PCR SOURCE CEREBRAL SPINAL FLU
--- NOTE | 2017-01-22 12:35 | PN ---
DATE: 01/22/2017 SUBJECTIVE DATA: Patient remains largely unresponsive on mechanical ventilation. Intermittent agitation on sedation but not opening eyes or following commands. Off Precedex today. He was hypertensive with increased work of breathing. OBJECTIVE DATA: VITAL SIGNS: Temperature 99, pulse is 92, blood pressure 88/58, O2 sat 96 percent. FiO2 40 percent. HEENT: Orally intubated. Moist mucous membranes. Pupils equal, react to light. CARDIAC: S1, S2. No added sounds. CHEST: Diminished air entry bilaterally. ABDOMEN: Soft, nontender. No guarding or rebound. EXTREMITIES: No cyanosis, clubbing or edema. NEUROLOGIC: Generalized weakness. LABS: White count 11.3, hemoglobin 9.9, platelets of 189,000. BUN 45, creatinine 2.51. ABG; pH 7.4, pCO2 32, PO2 of 71. Serial antibodies are pending. CD4 count was 502. Immunoglobulins showed low IgA and IgM. Plasma serology was elevated. Theresa Giron virus serology for IgG was elevated. IMPRESSION: 1. Encephalopathy of unclear etiology, still currently being worked up in a patient with a history of Abbi's granulomatosis and ANCA associated vasculitis. 2. History of lung cancer status post resection. PLAN: Patient continues mechanical ventilation pending resolution of encephalopathy prior to removal of mechanical ventilation if possible. Dictated By: To Holder MD /eladio/moraima /Document#: [id number]
[2017-01-22] MEDS ORDERED: VANCOMYCIN IV PER PHARMACY XX SCH (13:00)
--- NOTE | 2017-01-22 13:05 | CONS ---
Date/Time of Note Date/Time of Note DATE: 01/22/17 TIME: 12:32 Consult Date/Type/Reason Admit Date/Time Jan 17, 2017 at 17:33 Initial Consult Date Type of Consultation: Rheum Subjective Intubated. Lethargic. Objective Vital Signs Date Time Temp Pulse Resp B/P Pulse Ox O2 Delivery O2 Flow Rate FiO2 01/22/17 12:15 85 20 111/67 95 01/22/17 12:00 99.1 01/22/17 11:31 40 01/22/17 07:30 Mechanical Ventilator 01/19/17 01:30 1.0 Intake and Output 01/21/17 01/21/17 01/22/17 15:00 23:00 07:00 Intake Total 1008.22 ml 452.05 ml 1156.01 ml Output Total 402 ml 250 ml 1374 ml Balance 606.22 ml 202.05 ml -217.99 ml Exam GENERAL: Intubated, sedated; SKIN: No rash. HEENT: ET Tube in place NECK: No lymphadenopathy. HEART: S1, S2. Regular rate and rhythm. LUNGS: Clear bilaterally to auscultation. ABDOMEN: Soft, No masses or tenderness. EXTREMITIES: No cyanosis, no edema. MUSCULOSKELETAL: No synovitis Results/Medications Result Diagram: 01/22/17 0450 01/22/17 0450 Results 24 hrs Laboratory Tests Test 01/21/17 13:18 01/21/17 17:34 01/21/17 17:39 01/21/17 20:37 Bedside Glucose 118 123 146 Urine Color STRAW Urine Clarity CLEAR Urine pH 6.0 Urine Specific [place] 1.012 Urine Ketones NEGATIVE Urine Nitrite NEGATIVE Urine Bilirubin NEGATIVE Urine Urobilinogen NEGATIVE Urine Leukocyte Esterase NEGATIVE Urine Microscopic RBC 1 Urine Microscopic WBC 1 Urine Mucus FEW A Urine Hemoglobin 1+ H Urine Random Creatinine 28.33 Urine Random Sodium 140 H Urine Glucose NEGATIVE Urine Total Protein 162.0 H Test 01/22/17 01:12 01/22/17 04:50 01/22/17 05:31 01/22/17 07:00 Bedside Glucose 145 135 White Blood Count 11.3 #H Red Blood Count 3.58 L Hemoglobin 9.9 L Hematocrit 28.0 L Mean Corpuscular Volume 78.2 L Mean Corpuscular Hemoglobin 27.7 L Mean Corpuscular Hemoglobin Concent 35.4 Red Cell Distribution Width 16.1 H Platelet Count 189 Mean Platelet Volume 11.4 H Neutrophils % 85.3 H Lymphocytes % 3.1 L Monocytes % 10.1 Eosinophils % 0.0 Basophils % 0.1 Nucleated Red Blood Cells % 0.0 Neutrophils # (Manual) 9.6 H Lymphocytes # 0.4 L Monocytes # 1.1 H Eosinophils # 0.0 Basophils # 0.0 Nucleated Red Blood Cells # 0.0 Sodium Level 144 Potassium Level 3.8 Chloride Level 114 H Carbon Dioxide Level 23 Anion Gap 11 Blood Urea Nitrogen 45 H Creatinine 2.51 H Glucose Level 113 # Calcium Level 8.6 Phosphorus Level 2.6 Magnesium Level 2.3 Total Bilirubin 0.0 L Direct Bilirubin 0.00 Indirect Bilirubin 0.0 Aspartate Amino Transf (AST/SGOT) 100 H Alanine Aminotransferase (ALT/SGPT) 146 H Alkaline Phosphatase 84 Ammonia 25 Total Protein 4.5 L Albumin 2.6 L Globulin 1.90 Albumin/Globulin Ratio 1.36 Blood Gas Specimen Source Blood arterial Arterial Blood Date Drawn 01/22/2017 7:30:27 AM Arterial Blood pH (Temp corrected) 7.410 Arterial Blood pCO2 (Temp correct) 32.7 L Arterial Blood pO2 (Temp corrected) 71.0 L Arterial Blood HCO3 20.3 L Arterial Blood Base Excess -3.7 L Arterial Blood Oxygen Saturation 94.0 L George Test ACCEPTAB Arterial Blood Gas Puncture Site Right Radial Arterial Blood Carboxyhemoglobin 0.2 Arterial Blood Methemoglobin 0.3 Blood Gas A-a O2 Differential 176.6 H Oxyhemoglobin Percent 93.5 Total Hemoglobin 10.2 L Blood Gas Temperature 37.0 Blood Gas Respiration Rate 20.0 Blood Gas Actual Respiration Rate 20 Blood Gas Modality VENT - AC FiO2 40.0 Blood Gas Tidal Volume 500.0 Blood Gas Notified Whom JLD Blood Gas Notified Time 01/22/2017 8:06:04 AM Test 01/22/17 08:37 Bedside Glucose 177 Medications Current Medications Ondansetron HCl (Zofran Inj) 4 mg Q6H PRN IV NAUSEA AND/OR VOMITING; Start 01/17 at 14:30 Morphine Sulfate (morphine) 2 mg Q4H PRN IV SEVERE PAIN LEVEL 7-10; Start at 14:30 Docusate Sodium (Colace) 100 mg Q12H PRN PO CONSTIPATION; Start 01/17/17 at 14: 30 Heparin Sodium (Porcine) (Heparin (5000 Units/0.5 ml)) 5,000 unit Q12 SC Last administered on 01/19/17 09:49; Admin Dose 5,000 UNIT; Start 01/17/17 at 21:00; Status Future Hold Febuxostat (Uloric) 40 mg DAILY PO Last administered on 01/22/17 09:01; Admin Dose 40 MG; Start 01/18/17 at 09:00 Diphenhydramine HCl (Benadryl) 25 mg Q4H PRN IV CHILLS; Start 01/17/17 at 18:30 Diltiazem HCl (Cardizem Cd) 240 mg DAILY PO Last administered on 01/21/17 08:29 ; Admin Dose 240 MG; Start 01/17/17 at 18:30 Nicotine 1 patch 1 patch DAILY TRANSDERM Last administered on 01/22/17 08:44; Admin Dose 1 PATCH; Start 01/18/17 at 10:30 Acyclovir 750 mg/ Sodium Chloride 150 ml @ 100 mls/hr Q12H IVPB Last administered on 01/22/17 05:29; Admin Dose 100 MLS/HR; Start 01/18/17 at 18:00 Acetaminophen (Ofirmev 1000mg/ 100ml Iv) 100 ml @ 400 mls/hr Q4 PRN IVPB FEVER GREATER THAN 100.6 Last administered on 01/22/17 04:21; Admin Dose 400 MLS /HR; Start 01/19/17 at 00:30 Hydralazine HCl (Apresoline) 10 mg Q4H PRN IV hypertension Last administered on 01/22/17 01:14; Admin Dose 10 MG; Start 01/19/17 at 01:00 Labetalol HCl (Labetalol) 20 mg Q3 PRN IV ELEVATED BLOOD PRESSURE; Start at 02:30 Labetalol HCl (Labetalol) 10 mg Q3 PRN IV ELEVATED BLOOD PRESSURE Last administered on 01/19/17 06:50; Admin Dose 10 MG; Start 01/19/17 at 02:30 Diagnostic Test (Pha) (Accu-Chek) 1 ea 02 XX ; Start 01/20/17 at 02:00 Insulin Aspart (Novolog Insulin Pen) NOVOLOG *MILD* ALGORI... Q4 SC Last administered on 01/22/17 08:43; Admin Dose 2 UNIT; Start 01/19/17 at 09:00 Miscellaneous Information 1 ea NOTE XX ; Start 01/19/17 at 09:00 Glucose (Glutose) 15 gm Q15M PRN PO DECREASED GLUCOSE; Start 01/19/17 at 09:00 Glucose (Glutose) 22.5 gm Q15M PRN PO DECREASED GLUCOSE; Start 01/19/17 at 09:00 Dextrose (D50w Syringe) 25 ml Q15M PRN IV DECREASED GLUCOSE; Start 01/19/17 at 09:00 Dextrose (D50w Syringe) 50 ml Q15M PRN IV DECREASED GLUCOSE; Start 01/19/17 at 09:00 Glucagon (Glucagen) 1 mg Q15M PRN IM DECREASED GLUCOSE; Start 01/19/17 at 09:00 Glucose (Glutose) 15 gm Q15M PRN BUCCAL DECREASED GLUCOSE; Start 01/19/17 at 09: 00 IV Flush (NS 10 ml) 10 ml PRN PRN IV FLUSH LINE; Start 01/19/17 at 12:00 Diphenhydramine HCl (Benadryl Liquid Cup) 25 mg QHS PRN NGT ITCHING; Start 01/19 at 21:00 Hydralazine HCl (Apresoline) 25 mg Q4H PRN NGT hypertension; Start 01/19/17 at 20:30 Acetaminophen/ Hydrocodone Bitart ([place] (5/325)) 1 tab Q6H PRN NGT MODERATE PAIN LEVEL 4-6; Start 01/20/17 at 02:30 Loratadine (Claritin) 10 mg DAILY NGT Last administered on 01/22/17 09:03; Admin Dose 10 MG; Start 01/20/17 at 09:00 Magnesium Hydroxide (Milk Of Mag) 30 ml DAILY PRN NGT CONSTIPATION; Start at 20:30 Metoprolol Tartrate (Lopressor) 25 mg BID NGT Last administered on 01/21/17 20: 38; Admin Dose 25 MG; Start 01/19/17 at 21:00 Acetaminophen (Tylenol Liquid) 1,000 mg Q4H PRN NGT PAIN AND OR ELEVATED TEMP; Start 01/19/17 at 20:30; Status Future Hold Docusate Sodium (Colace Liquid Cup) 100 mg TID NGT Last administered on 09:01; Admin Dose 100 MG; Start 01/19/17 at 21:00 Lorazepam 2 mg 2 mg Q6H PRN IV before LP and MRI Last administered on 01/22/17 11:37; Admin Dose 2 MG; Start 01/20/17 at 00:00 Fentanyl (Sublimaze) 100 ml @ 2.5 mls/hr TITRATE IV Last administered on 01:33; Admin Dose 10 MLS/HR; Start 01/20/17 at 10:00 Lansoprazole 30 mg 30 mg DAILY@06 NGT Last administered on 01/22/17 05:29; Admin Dose 30 MG; Start 01/21/17 at 06:00 Norepinephrine/ Dextrose (Levophed/D5W) 500 ml @ 1.87 mls/hr TITRATE IV ; Start 01/20/17 at 17:30 Insulin Glargine 4 unit 4 unit DAILY@08 SC Last administered on 01/22/17 08:42 ; Admin Dose 4 UNIT; Start 01/21/17 at 08:11 Dexmedetomidine HCl 200 mcg/ Sodium Chloride 50 ml @ 3.82 mls/hr TITRATE IV Last administered on 01/22/17 12:14; Admin Dose 9.56 MLS/HR; Start 01/21/17 at 12 :00 Piperacillin Sod/ Tazobactam Sod 100 ml @ 200 mls/hr Q8 IVPB Last administered on 01/22/17 05:29; Admin Dose 200 MLS/HR; Start 01/21/17 at 22:00 Levetiracetam/ Sodium Chloride (Keppra Iv/NS) 102.5 ml @ 430 mls/hr Q12 IVPB Last administered on 01/22/17 08:47; Admin Dose 430 MLS/HR; Start 01/21/17 at 23: 30 Assessment/Plan Chief Complaint/Hosp Course Ass: 1. Respiratory failure- most likely central in Etiology. Possible hospital acquired or aspiration pneumonia. 2. Fevers now resolved on antibiotics. 3. Abbi's Granulomatosis. Appears well controlled. The patient is currently on Rituxan. No definite evidence of activity, and no sinusitis on MRI. 4. Immunosuppression on Rituxan 5 History of gout. Uric acid levels are low. Not active. 6. Elevated transaminases. ? meds. Will check CPK. 7 Acute on Chronic kidney disease, likely secondary to infection. Plan.: 1. Continue present eval and treatment. 2. Will check CPK. Problems: ZAC HONEYCUTT MD Jan 22, 2017 12:42
[2017-01-22] MEDS: VANCOMYCIN 1 GM in NS 250 ML IVPB SCH (14:56)
[2017-01-22 15:04] LABS: BACT AG SOURCE CEREBROSPINAL FLUID; BACT AG STREP GP B NOT DETECTED; BACT AG STREP PNEUMONIAE NOT DETECTED
[2017-01-22 17:08] LABS: VDRL, CSF NON-REACTIVE
--- NOTE | 2017-01-22 18:11 | PN ---
DATE: 01/22/2017 SUBJECTIVE DATA: No acute changes overnight. The patient spiked a fever of 101.5 this morning. Cultures were sent. OBJECTIVE DATA: Currently, afebrile with a temperature of 99.1, pulse 85, respirations 20, blood pressure 111/67, saturation 95 on vent. LABORATORY AND DIAGNOSTIC DATA: WBC 11.3, H and H 9.9 and 28, platelets 189, neutrophils 85.3. BUN 45, creatinine 2.51. Procalcitonin pending. INDWELLING: Endotracheal tube, NG tube, [place], PICC line. ANTIMICROBIALS: Zosyn, status post Rocephin, vancomycin, Unasyn discontinued yesterday. Patient is also on acyclovir. MICROBIOLOGY: So far, cultures have been negative. HSV by PCR CSF pending. West Nile virus CSF pending. DIAGNOSTICS: A chest x-ray this morning revealed stable left basilar atelectasis/infiltrate and small left pleural effusion. PHYSICAL EXAMINATION: GENERAL: This is a well-nourished, well-developed, elderly man, who is intubated, sedated, in no distress. HEENT: Head atraumatic, normocephalic. Sclerae anicteric. Buccal mucosa dry. NECK: Supple. CHEST: Rise symmetrical. Breath sounds diminished at the bases. HEART: S1, S2. ABDOMEN: Soft, bowel sounds present. EXTREMITIES: Without cyanosis. SKIN: No jaundice. No cyanosis. No rashes. ASSESSMENT: 1. Sepsis with ongoing fevers, etiology unclear, no evidence of bacterial meningitis per lumbar puncture. CSF cultures have been negative. Cytology with white blood cell count of 0, glucose 130, protein 94. 2. Acute encephalopathy status post intubation for airway protection. 3. Questionable left lower lobe infiltrate versus atelectasis with small pleural effusion. 4. Immunocompromised state. 5. Abbi disease, on Rituxan. 6. History of gout. 7. Acute on chronic kidney disease. 8. Possible bilateral mastoiditis. PLAN: We are going to restart the patient on IV vancomycin since he is spiking fevers. Continue Zosyn and acyclovir. Will order WBC labeled nuclear scan. Await final workup. Continue vent management as per Pulmonary. Discussed with staff and family at bedside. Dictated By: Giancarlo Hodges NP /[email or web address] /Document#: [id number]
[2017-01-23] VITALS (58 sets, daily range): BP systolic 92–205; BP diastolic 54–129; PULSE 44–130; RESP 14–45
[2017-01-23] MEDS: INSULIN ASPART [NOVOLOG] 3 ML PEN SC SCH ×6 (01:02→20:45)
[2017-01-23] MEDS: ACCU-CHEK XX SCH (02:00)
[2017-01-23] MEDS: DEXMEDETOMIDINE HCL 200 MCG in SOD CHLORIDE 0.9% 48 ML IV SCH ×2 (02:10→05:38)
[2017-01-23 05:08] LABS: ALBUMIN 2.6 g/dl (3.3-4.9); BASOPHILS % 0.2 % (0.0-2.0); BILIRUBIN,INDIRECT 0.1 mg/dl (0-1.1); BILIRUBIN,TOTAL 0.1 mg/dl (0.2-1.3); EOSINOPHILS % 0.3 % (0.0-7.0); HEMATOCRIT 26.3 % (42.0-52.0); HEMOGLOBIN 9.2 g/dl (14.0-18.0); LYMPHOCYTES # 0.6 10^3/ul (0.8-2.9); LYMPHOCYTES % 6.4 % (15.0-51.0); MEAN CORPUSCULAR HEMOGLOBIN 27.6 pg (29.0-33.0); MEAN PLATELET VOLUME 12.3 fl (7.4-10.4); MONOCYTE # 1.1 10^3/ul (0.3-0.9); MONOCYTES % 11.3 % (0.0-11.0); NEUTROPHILS % 79.9 % (39.0-77.0); NUCLEATED RED BLOOD CELLS% 0.2 /100WBC (0.0-0.0); PLATELET COUNT 176 10^3/UL (140-415); RED BLOOD COUNT 3.33 10^6/ul (4.70-6.10); RED CELL DISTRIBUTION WIDTH 16.5 % (11.5-14.5); TOTAL PROTEIN 4.7 g/dl (6.1-8.1); WHITE BLOOD COUNT 9.4 10^3/ul (4.8-10.8)
[2017-01-23 05:09] LABS: CALCIUM 8.7 mg/dl (8.4-10.2); CREATININE 2.61 mg/dl (0.61-1.24); MAGNESIUM 2.3 mg/dl (1.7-2.5); PHOSPHORUS 3.2 mg/dl (2.5-4.9); POTASSIUM 3.7 mmol/L (3.5-5.1)
[2017-01-23 05:20] LABS: TROPONIN-I 0.038 ng/ml (0.00-0.12)
[2017-01-23 05:22] LABS: CK-MB 0.26 ng/ml (0.0-2.4)
[2017-01-23] MEDS: LANSOPRAZOLE 30 MG CAP NGT SCH (05:38)
[2017-01-23] MEDS: PIPER-TAZO 3.375 GM IV (PMX) 100 ML IVPB SCH ×3 (05:38→21:33)
--- NOTE | 2017-01-23 07:45 | RADRPT ---
PROCEDURE: XR Chest. CLINICAL INDICATION: Shortness of breath. TECHNIQUE: Single frontal view. COMPARISON: 01/22/2017. FINDINGS: The endotracheal tube, left arm PICC line, and nasogastric tube remain in satisfactory position. Mil d left basilar atelectasis has improved. The lungs are otherwise clear. The heart size is normal. There is no right pleural effusion. There is a small left pleural effusion. There is no pneumothorax. IMPRESSION: 1. Improved appearance of the left lung base and smaller left pleural effusion. 2. No other change from 01/22/2017. RPTAT: QQ .Caden Cerna MD, MD Date Time Electronically viewed and signed by .Caden Cerna MD, MD on 01/23/2017 07:45 .R/
[2017-01-23] MEDS: NICOTINE (14 MG/24 HR) PATCH TRANSDERM SCH (08:53)
[2017-01-23] MEDS: FEBUXOSTAT 40 MG TABLET PO SCH (08:53)
[2017-01-23] MEDS: LORATADINE 10 MG TAB NGT SCH (08:54)
[2017-01-23] MEDS: METOPROLOL 25 MG TAB NGT SCH ×2 (08:54→20:11)
[2017-01-23] MEDS: DILTIAZEM (CD) 240 MG CAP PO SCH (08:54)
[2017-01-23] MEDS: INSULIN GLARGINE [LANtus] 3 ML PEN SC SCH (08:59)
[2017-01-23] MEDS: DOCUSATE SODIUM 10 MG/ML (10ML CUP) NGT SCH ×3 (09:00→20:11)
[2017-01-23] MEDS: LEVETIRACETAM IV 250 MG in SOD CHLORIDE 0.9% 100 ML IVPB SCH ×2 (09:08→20:53)
--- NOTE | 2017-01-23 09:38 | CONS ---
Date/Time of Note Date/Time of Note DATE: 01/23/17 TIME: 09:36 Consult Date/Type/Reason Admit Date/Time Jan 17, 2017 at 17:33 Type of Consultation: Pulm Subjective Significant agitation, not following commands off sedation, Increased BP and work of breathing off sedation. Objective Vital Signs Date Time Temp Pulse Resp B/P Pulse Ox O2 Delivery O2 Flow Rate FiO2 01/23/17 09:00 100 27 177/96 100 Mechanical Ventilator 01/23/17 08:00 99.2 01/23/17 08:00 40 Intake and Output 01/22/17 01/22/17 01/23/17 15:00 23:00 07:00 Intake Total 960.30 ml 938.08 ml 485.58 ml Output Total 1317 ml 1133 ml 537 ml Balance -356.70 ml -194.92 ml -51.42 ml Exam OBJECTIVE DATA: VITAL SIGNS: HEENT: Orally intubated. Moist mucous membranes. Pupils equal, react to light. CARDIAC: S1, S2. No added sounds. CHEST: Diminished air entry bilaterally. ABDOMEN: Soft, nontender. No guarding or rebound. EXTREMITIES: No cyanosis, clubbing or edema. NEUROLOGIC: Generalized weakness. Results/Medications Result Diagram: 01/23/17 0400 01/23/17 0400 Results 24 hrs Laboratory Tests Test 01/22/17 13:00 01/22/17 17:20 01/22/17 20:59 01/23/17 00:59 Bedside Glucose 170 202 143 154 Test 01/23/17 04:00 01/23/17 05:35 01/23/17 08:48 White Blood Count 9.4 Red Blood Count 3.33 L Hemoglobin 9.2 L Hematocrit 26.3 L Mean Corpuscular Volume 79.0 L Mean Corpuscular Hemoglobin 27.6 L Mean Corpuscular Hemoglobin Concent 35.0 Red Cell Distribution Width 16.5 H Platelet Count 176 Mean Platelet Volume 12.3 H Neutrophils % 79.9 H Lymphocytes % 6.4 L Monocytes % 11.3 H Eosinophils % 0.3 Basophils % 0.2 Nucleated Red Blood Cells % 0.2 H Neutrophils # (Manual) 7.5 Lymphocytes # 0.6 L Monocytes # 1.1 H Eosinophils # 0.0 Basophils # 0.0 Nucleated Red Blood Cells # 0.0 Sodium Level 144 Potassium Level 3.7 Chloride Level 114 H Carbon Dioxide Level 24 Anion Gap 10 Blood Urea Nitrogen 51 H Creatinine 2.61 H Glucose Level 168 Calcium Level 8.7 Phosphorus Level 3.2 Magnesium Level 2.3 Total Bilirubin 0.1 L Direct Bilirubin 0.00 Indirect Bilirubin 0.1 Aspartate Amino Transf (AST/SGOT) 63 H Alanine Aminotransferase (ALT/SGPT) 148 H Alkaline Phosphatase 87 Creatine Kinase 22 L Creatine Kinase Index 1.2 Creatinine Kinase MB (Mass) 0.26 Troponin I 0.038 Total Protein 4.7 L Albumin 2.6 L Bedside Glucose 166 220 Medications Current Medications Ondansetron HCl (Zofran Inj) 4 mg Q6H PRN IV NAUSEA AND/OR VOMITING; Start 01/17 at 14:30 Morphine Sulfate (morphine) 2 mg Q4H PRN IV SEVERE PAIN LEVEL 7-10; Start at 14:30 Docusate Sodium (Colace) 100 mg Q12H PRN PO CONSTIPATION; Start 01/17/17 at 14: 30 Heparin Sodium (Porcine) (Heparin (5000 Units/0.5 ml)) 5,000 unit Q12 SC Last administered on 01/19/17 09:49; Admin Dose 5,000 UNIT; Start 01/17/17 at 21:00; Status Future Hold Febuxostat (Uloric) 40 mg DAILY PO Last administered on 01/23/17 08:53; Admin Dose 40 MG; Start 01/18/17 at 09:00 Diphenhydramine HCl (Benadryl) 25 mg Q4H PRN IV CHILLS; Start 01/17/17 at 18:30 Diltiazem HCl (Cardizem Cd) 240 mg DAILY PO Last administered on 01/23/17 08:54 ; Admin Dose 240 MG; Start 01/17/17 at 18:30 Nicotine 1 patch 1 patch DAILY TRANSDERM Last administered on 01/23/17 08:53; Admin Dose 1 PATCH; Start 01/18/17 at 10:30 Acetaminophen (Ofirmev 1000mg/ 100ml Iv) 100 ml @ 400 mls/hr Q4 PRN IVPB FEVER GREATER THAN 100.6 Last administered on 01/22/17 21:02; Admin Dose 400 MLS /HR; Start 01/19/17 at 00:30 Hydralazine HCl (Apresoline) 10 mg Q4H PRN IV hypertension Last administered on 01/22/17 16:20; Admin Dose 10 MG; Start 01/19/17 at 01:00 Labetalol HCl (Labetalol) 20 mg Q3 PRN IV ELEVATED BLOOD PRESSURE; Start at 02:30 Labetalol HCl (Labetalol) 10 mg Q3 PRN IV ELEVATED BLOOD PRESSURE Last administered on 01/19/17 06:50; Admin Dose 10 MG; Start 01/19/17 at 02:30 Diagnostic Test (Pha) (Accu-Chek) 1 ea 02 XX ; Start 01/20/17 at 02:00 Insulin Aspart (Novolog Insulin Pen) NOVOLOG *MILD* ALGORI... Q4 SC Last administered on 01/23/17 09:07; Admin Dose 2 UNIT; Start 01/19/17 at 09:00 Miscellaneous Information 1 ea NOTE XX ; Start 01/19/17 at 09:00 Glucose (Glutose) 15 gm Q15M PRN PO DECREASED GLUCOSE; Start 01/19/17 at 09:00 Glucose (Glutose) 22.5 gm Q15M PRN PO DECREASED GLUCOSE; Start 01/19/17 at 09:00 Dextrose (D50w Syringe) 25 ml Q15M PRN IV DECREASED GLUCOSE; Start 01/19/17 at 09:00 Dextrose (D50w Syringe) 50 ml Q15M PRN IV DECREASED GLUCOSE; Start 01/19/17 at 09:00 Glucagon (Glucagen) 1 mg Q15M PRN IM DECREASED GLUCOSE; Start 01/19/17 at 09:00 Glucose (Glutose) 15 gm Q15M PRN BUCCAL DECREASED GLUCOSE; Start 01/19/17 at 09: 00 IV Flush (NS 10 ml) 10 ml PRN PRN IV FLUSH LINE; Start 01/19/17 at 12:00 Diphenhydramine HCl (Benadryl Liquid Cup) 25 mg QHS PRN NGT ITCHING; Start 01/19 at 21:00 Hydralazine HCl (Apresoline) 25 mg Q4H PRN NGT hypertension; Start 01/19/17 at 20:30 Acetaminophen/ Hydrocodone Bitart ([place] (5/325)) 1 tab Q6H PRN NGT MODERATE PAIN LEVEL 4-6; Start 01/20/17 at 02:30 Loratadine (Claritin) 10 mg DAILY NGT Last administered on 01/23/17 08:54; Admin Dose 10 MG; Start 01/20/17 at 09:00 Magnesium Hydroxide (Milk Of Mag) 30 ml DAILY PRN NGT CONSTIPATION; Start at 20:30 Metoprolol Tartrate (Lopressor) 25 mg BID NGT Last administered on 01/23/17 08: 54; Admin Dose 25 MG; Start 01/19/17 at 21:00 Acetaminophen (Tylenol Liquid) 1,000 mg Q4H PRN NGT PAIN AND OR ELEVATED TEMP; Start 01/19/17 at 20:30; Status Future Hold Docusate Sodium (Colace Liquid Cup) 100 mg TID NGT Last administered on 20:56; Admin Dose 100 MG; Start 01/19/17 at 21:00 Lorazepam 2 mg 2 mg Q6H PRN IV before LP and MRI Last administered on 01/22/17 17:17; Admin Dose 2 MG; Start 01/20/17 at 00:00 Fentanyl (Sublimaze) 100 ml @ 2.5 mls/hr TITRATE IV Last administered on 13:01; Admin Dose 0.25 MLS/HR; Start 01/20/17 at 10:00 Lansoprazole 30 mg 30 mg DAILY@06 NGT Last administered on 01/23/17 05:38; Admin Dose 30 MG; Start 01/21/17 at 06:00 Norepinephrine/ Dextrose (Levophed/D5W) 500 ml @ 1.87 mls/hr TITRATE IV ; Start 01/20/17 at 17:30 Insulin Glargine 4 unit 4 unit DAILY@08 SC Last administered on 01/23/17 08:59 ; Admin Dose 4 UNIT; Start 01/21/17 at 08:11 Piperacillin Sod/ Tazobactam Sod 100 ml @ 200 mls/hr Q8 IVPB Last administered on 01/23/17 05:38; Admin Dose 200 MLS/HR; Start 01/21/17 at 22:00 Levetiracetam 250 mg/Sodium Chloride 102.5 ml @ 430 mls/hr Q12 IVPB Last administered on 01/23/17 09:08; Admin Dose 430 MLS/HR; Start 01/21/17 at 23:30 Vancomycin HCl (Vancocin) 250 ml @ 125 mls/hr Q24H IVPB Last administered on t 14:56; Admin Dose 125 MLS/HR; Start 01/22/17 at 15:00 Miscellaneous Information 1 ONCE ONCE XX ; Start 01/23/17 at 14:00; Stop at 14:01 Midazolam HCl (Versed) 50 ml @ 1 mls/hr TITRATE IV ; Start 01/23/17 at 09:30 Assessment/Plan Chief Complaint/Hosp Course IMPRESSION: 1. Hypoxemic respiratory failure likely secondary to a change in neurological status with alveolar hypoventilation and inability to protect airway. 2. Acute encephalopathy of unclear etiology. Concern for a possible primary central nervous system disorder, such as West Nile virus or viral encephalitis. Status post lumbar puncture. 3. Hypokalemia. 4. Hx Lung Ca 5. Abbi granulomatosis. PLAN: 1. Continue mechanical ventilation. 2. Await lumbar puncture results 3. ID recs 4. DVT and GI prophylaxis. 5. Replace K. 6. Dc precedex, switch to versed. 6. Rheum recs. ? steroid trial for possible office assistance vasculitis. ? cc 40 mins. Problems: CAROL DÍAZ MD, [facility] Jan 23, 2017 09:38
[2017-01-23] MEDS: hydrALAzine 20 MG INJ IV PRN ×2 (10:03→14:09)
[2017-01-23] MEDS: MIDAZOLAM (DRIP) 50 mg/50 mL 50 ML IV SCH (10:27)
[2017-01-23] MEDS: LABETALOL HCL 20MG INJ IV PRN ×2 (11:06→22:05)
[2017-01-23] MEDS: LORAZEPAM 2 MG INJ IV PRN (11:28)
--- NOTE | 2017-01-23 11:39 | PN ---
DATE: 01/23/2017 SUBJECTIVE DATA: The patient remains critically ill. The patient was febrile overnight. Remains on full ventilatory support. OBJECTIVE DATA: VITAL SIGNS: Blood pressure is 136/71, pulse 82, respirations 24. HEENT: Head is normocephalic. NECK: Supple. HEART: Regular rate. LUNGS: Show diminished breath sounds at the base. ABDOMEN: Soft, nontender to palpation. No rebound or guarding. EXTREMITIES: Negative for clubbing, cyanosis. No edema. DERMATOLOGIC: Clean. No rashes. MUSCULOSKELETAL: No joint effusion. NEUROLOGIC: No change in exam. MEDICATIONS: Reviewed. LABORATORY AND DIAGNOSTIC DATA: Shows a white count 9.4, hemoglobin 9.2, hematocrit 26.3, platelet count is 176. Sodium 144, potassium 3.7, chloride 114, BUN 51, creatinine 2.61. Chest x-ray on 01/22 shows stable infiltrates. ASSESSMENT AND PLAN: 1. Nonoliguric acute kidney injury on top of chronic kidney disease stage III, with previous baseline creatinine 1.7 mg/dL. Etiology of current acute kidney injury is multifactorial secondary to hemodynamics septic acute kidney injury. Patient has no evidence of acute glomerulonephritis at this time. The patient's previous urinalysis was evaluated, was bland, no evidence of active sediment. At this point, would continue current treatment, supportive care, renally dose all meds. 2. Hypokalemia, improved. Continue to monitor. 3. Volume overload. Continue to monitor. Give intermittent diuretic therapy as needed. 4. Anemia. Monitor H and H levels. 5. Mineral bone disorder. Monitor calcium and phosphorus levels. 6. Severe sepsis. Etiology is possibly multifactorial. Viral encephalitis, possible pneumonia, possible . The patient is on antimicrobial antiviral therapy. Continue follow up Infectious Disease. 7. Ventilatory-dependent respiratory failure. Vent settings reviewed. ABGs reviewed. Continue to monitor. Follow up with Pulmonary. 8. History of Abbi's granulomatosis. The patient is status post Rituxan. Continue to monitor. Follow up with Hematology. Acute encephalopathy. Etiology is multifactorial, possible encephalitis. Continue medical 9. management. 10. Gastrointestinal and deep venous thrombosis prophylaxes. Continue proton pump inhibitor and sequential leg squeezers. Dictated By: Jim Sierra DO /[email or web address]/grace /Document#: [id number]
[2017-01-23] MEDS: FENTAnyl (DRIP) 1000 mcg/100mL 100 ML IV SCH ×2 (12:08→22:54)
[2017-01-23] MEDS: ACETAMINOPHEN 1000MG/100ML IV 100 ML IVPB PRN (14:09)
--- NOTE | 2017-01-23 15:18 | CONS ---
Date/Time of Note Date/Time of Note DATE: 01/23/17 TIME: 14:57 Consult Date/Type/Reason Admit Date/Time Jan 17, 2017 at 17:33 Type of Consultation: neurology Subjective Sedated, gets hypertensive, hyperpneic and tachycardic when off sedation, per nurse moves UE, but does not follow commands, on versed, fentanyl now. Tm 102. Objective Vital Signs Date Time Temp Pulse Resp B/P Pulse Ox O2 Delivery O2 Flow Rate FiO2 01/23/17 13:30 100 21 183/86 98 01/23/17 13:00 Mechanical Ventilator 01/23/17 12:00 100.5 01/23/17 11:40 40 Intake and Output 01/22/17 01/22/17 01/23/17 15:00 23:00 07:00 Intake Total 960.30 ml 938.08 ml 485.58 ml Output Total 1317 ml 1133 ml 537 ml Balance -356.70 ml -194.92 ml -51.42 ml Exam NEUROLOGIC: Patient is lethargic. Sedated, fentanil, versed does opens eyes to stimulation, but moves UE when suctioning, more his left UE. Does not follow commands. No definite response to visual threat bilaterally. Pupils about 2 mm right, 1 mm left. Extraocular movements absent spontaniously, seems to be able to cross midline on oculocephalic maneuver. Corneal reflexes present bilaterally, as well as gag. Motor strength examination trace withdrawal LE to pain, moved UE to suctioning, see above. Increased tone in upper extremities on attempted full elbow flexion . Deep tendon reflexes, 2+ upper extremities and knees, absent ankle jerks. No response to plantar stimulation bilaterally. Coordination examination shows no more postural tremor, no more myoclonic jerks which was seen before. Severe nuchal rigidity still present Results/Medications Result Diagram: 01/23/17 0400 01/23/17 0400 Results 24 hrs Laboratory Tests Test 01/22/17 17:20 01/22/17 20:59 01/23/17 00:59 01/23/17 04:00 Bedside Glucose 202 143 154 White Blood Count 9.4 Red Blood Count 3.33 L Hemoglobin 9.2 L Hematocrit 26.3 L Mean Corpuscular Volume 79.0 L Mean Corpuscular Hemoglobin 27.6 L Mean Corpuscular Hemoglobin Concent 35.0 Red Cell Distribution Width 16.5 H Platelet Count 176 Mean Platelet Volume 12.3 H Neutrophils % 79.9 H Lymphocytes % 6.4 L Monocytes % 11.3 H Eosinophils % 0.3 Basophils % 0.2 Nucleated Red Blood Cells % 0.2 H Neutrophils # (Manual) 7.5 Lymphocytes # 0.6 L Monocytes # 1.1 H Eosinophils # 0.0 Basophils # 0.0 Nucleated Red Blood Cells # 0.0 Sodium Level 144 Potassium Level 3.7 Chloride Level 114 H Carbon Dioxide Level 24 Anion Gap 10 Blood Urea Nitrogen 51 H Creatinine 2.61 H Glucose Level 168 Calcium Level 8.7 Phosphorus Level 3.2 Magnesium Level 2.3 Total Bilirubin 0.1 L Direct Bilirubin 0.00 Indirect Bilirubin 0.1 Aspartate Amino Transf (AST/SGOT) 63 H Alanine Aminotransferase (ALT/SGPT) 148 H Alkaline Phosphatase 87 Creatine Kinase 22 L Creatine Kinase Index 1.2 Creatinine Kinase MB (Mass) 0.26 Troponin I 0.038 Total Protein 4.7 L Albumin 2.6 L Test 01/23/17 05:35 01/23/17 08:48 01/23/17 12:19 01/23/17 12:51 Bedside Glucose 166 220 184 Lab Scanned Report REFERENCE LAB Medications Current Medications Ondansetron HCl (Zofran Inj) 4 mg Q6H PRN IV NAUSEA AND/OR VOMITING; Start 01/17 at 14:30 Morphine Sulfate (morphine) 2 mg Q4H PRN IV SEVERE PAIN LEVEL 7-10; Start at 14:30 Docusate Sodium (Colace) 100 mg Q12H PRN PO CONSTIPATION; Start 01/17/17 at 14: 30 Heparin Sodium (Porcine) (Heparin (5000 Units/0.5 ml)) 5,000 unit Q12 SC Last administered on 01/19/17 09:49; Admin Dose 5,000 UNIT; Start 01/17/17 at 21:00; Status Future Hold Febuxostat (Uloric) 40 mg DAILY PO Last administered on 01/23/17 08:53; Admin Dose 40 MG; Start 01/18/17 at 09:00 Diphenhydramine HCl (Benadryl) 25 mg Q4H PRN IV CHILLS; Start 01/17/17 at 18:30 Diltiazem HCl (Cardizem Cd) 240 mg DAILY PO Last administered on 01/23/17 08:54 ; Admin Dose 240 MG; Start 01/17/17 at 18:30 Nicotine 1 patch 1 patch DAILY TRANSDERM Last administered on 01/23/17 08:53; Admin Dose 1 PATCH; Start 01/18/17 at 10:30 Acetaminophen (Ofirmev 1000mg/ 100ml Iv) 100 ml @ 400 mls/hr Q4 PRN IVPB FEVER GREATER THAN 100.6 Last administered on 01/23/17 14:09; Admin Dose 400 MLS /HR; Start 01/19/17 at 00:30 Hydralazine HCl (Apresoline) 10 mg Q4H PRN IV hypertension Last administered on 01/23/17 14:09; Admin Dose 10 MG; Start 01/19/17 at 01:00 Labetalol HCl (Labetalol) 20 mg Q3 PRN IV ELEVATED BLOOD PRESSURE; Start at 02:30 Labetalol HCl (Labetalol) 10 mg Q3 PRN IV ELEVATED BLOOD PRESSURE Last administered on 01/23/17 11:06; Admin Dose 10 MG; Start 01/19/17 at 02:30 Diagnostic Test (Pha) (Accu-Chek) 1 ea 02 XX ; Start 01/20/17 at 02:00 Insulin Aspart (Novolog Insulin Pen) NOVOLOG *MILD* ALGORI... Q4 SC Last administered on 01/23/17 12:54; Admin Dose 2 UNIT; Start 01/19/17 at 09:00 Miscellaneous Information 1 ea NOTE XX ; Start 01/19/17 at 09:00 Glucose (Glutose) 15 gm Q15M PRN PO DECREASED GLUCOSE; Start 01/19/17 at 09:00 Glucose (Glutose) 22.5 gm Q15M PRN PO DECREASED GLUCOSE; Start 01/19/17 at 09:00 Dextrose (D50w Syringe) 25 ml Q15M PRN IV DECREASED GLUCOSE; Start 01/19/17 at 09:00 Dextrose (D50w Syringe) 50 ml Q15M PRN IV DECREASED GLUCOSE; Start 01/19/17 at 09:00 Glucagon (Glucagen) 1 mg Q15M PRN IM DECREASED GLUCOSE; Start 01/19/17 at 09:00 Glucose (Glutose) 15 gm Q15M PRN BUCCAL DECREASED GLUCOSE; Start 01/19/17 at 09: 00 IV Flush (NS 10 ml) 10 ml PRN PRN IV FLUSH LINE; Start 01/19/17 at 12:00 Diphenhydramine HCl (Benadryl Liquid Cup) 25 mg QHS PRN NGT ITCHING; Start 01/19 at 21:00 Hydralazine HCl (Apresoline) 25 mg Q4H PRN NGT hypertension; Start 01/19/17 at 20:30 Acetaminophen/ Hydrocodone Bitart ([place] (5/325)) 1 tab Q6H PRN NGT MODERATE PAIN LEVEL 4-6; Start 01/20/17 at 02:30 Loratadine (Claritin) 10 mg DAILY NGT Last administered on 01/23/17 08:54; Admin Dose 10 MG; Start 01/20/17 at 09:00 Magnesium Hydroxide (Milk Of Mag) 30 ml DAILY PRN NGT CONSTIPATION; Start at 20:30 Metoprolol Tartrate (Lopressor) 25 mg BID NGT Last administered on 01/23/17 08: 54; Admin Dose 25 MG; Start 01/19/17 at 21:00 Acetaminophen (Tylenol Liquid) 1,000 mg Q4H PRN NGT PAIN AND OR ELEVATED TEMP; Start 01/19/17 at 20:30; Status Future Hold Docusate Sodium (Colace Liquid Cup) 100 mg TID NGT Last administered on 20:56; Admin Dose 100 MG; Start 01/19/17 at 21:00 Lorazepam 2 mg 2 mg Q6H PRN IV before LP and MRI Last administered on 01/23/17 11:28; Admin Dose 2 MG; Start 01/20/17 at 00:00 Fentanyl (Sublimaze) 100 ml @ 2.5 mls/hr TITRATE IV Last administered on 12:08; Admin Dose 7.5 MLS/HR; Start 01/20/17 at 10:00 Lansoprazole 30 mg 30 mg DAILY@06 NGT Last administered on 01/23/17 05:38; Admin Dose 30 MG; Start 01/21/17 at 06:00 Norepinephrine 16 mg/Dextrose 500 ml @ 1.87 mls/hr TITRATE IV ; Start 01/20/17 at 17:30 Piperacillin Sod/ Tazobactam Sod 100 ml @ 200 mls/hr Q8 IVPB Last administered on 01/23/17 13:58; Admin Dose 200 MLS/HR; Start 01/21/17 at 22:00 Levetiracetam 250 mg/Sodium Chloride 102.5 ml @ 430 mls/hr Q12 IVPB Last administered on 01/23/17 09:08; Admin Dose 430 MLS/HR; Start 01/21/17 at 23:30 Vancomycin HCl 250 ml @ 125 mls/hr Q24H IVPB Last administered on 01/22/17 14: 56; Admin Dose 125 MLS/HR; Start 01/22/17 at 15:00 Midazolam HCl (Versed) 50 ml @ 1 mls/hr TITRATE IV Last administered on 10:27; Admin Dose 1 MLS/HR; Start 01/23/17 at 09:30 Insulin Glargine (Lantus) 6 unit DAILY@08 SC ; Start 01/24/17 at 08:00 Assessment/Plan Chief Complaint/Hosp Course IMPRESSION: A 66-year-old gentleman who presented on 01-17-17 with several days of fevers and generalized weakness, dizziness, a few episodes of nausea, transient shoulder pain. Patient is immunosuppressed and in the hospital,he developed mental status changes, became confused, and complained of diplopia; has also developed noticeable nuchal rigidity, stridor, has to be intubated. Continues to be very encephalopathic, had transient tremor and myoclonus. 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 HSV PCR was negative, off acyclovir, bacterial and fungal work up negative. West Nile serology was sent out, pending. EEG c/w encephalopathy. Will try to avoid sedation when possible Per "Uptodate" on West Nile treatment, "because of a theoretical benefit with this use of" IVIG "in patients with humoral deficiencies, it is reasonable to use this agent in such patients without contraindications to receiving IVIG". Pt has very low immunoglobulin levels secondary to immunosuppression, so I'll give IVIG Problems: LALO MONACO MD Jan 23, 2017 15:11
[2017-01-23] MEDS ORDERED: IMMUNE GLOBULIN (HUMAN) 6 GM INJ IV SCH (15:30)
[2017-01-23] MEDS: VANCOMYCIN 1 GM in NS 250 ML IVPB SCH (15:37)
--- NOTE | 2017-01-23 16:05 | PN ---
DATE: 01/23/2017 SUBJECTIVE DATA: No acute changes. The patient continues to spike fevers with a T-max last night of 102, T current 100.5, pulse 100, respirations 21, blood pressure 183/86. Saturation 98 on ventilator. LABORATORY DATA: WBC 9.4, H and H 9.2 and 26.3, platelets 176,000. Neutrophils 79.9. BUN 51, creatinine 2.61. MICROBIOLOGY: All cultures have been negative. Serology for West Nile virus pending. DIAGNOSTICS: Chest x-ray revealed improved appearance of the left lung base and smaller left pleural effusion. INDWELLING: Endotracheal tube, NG tube, D[place], PICC line placed on 01/19/2017. ANTIMICROBIALS: The patient remains on vancomycin and Zosyn. PHYSICAL EXAMINATION: GENERAL: Well-nourished, well-developed, elderly man, who is intubated, in no distress. HEENT: Head atraumatic, normocephalic. Sclerae anicteric. Buccal mucosa dry. NECK: Supple. CHEST: Rise symmetrical. Breath sounds diminished at the bases. HEART: S1, S2. ABDOMEN: Soft, bowel sounds present. EXTREMITIES: Without cyanosis, edema. SKIN: No jaundice, rashes, cyanosis. NEUROMUSCULAR: No joint swelling, redness. ASSESSMENT: 1. Sepsis with acute encephalopathy and ongoing fevers, so far, all cultures have been negative. No evidence for bacterial meningitis per cerebrospinal fluid cultures and cytology, Guerda ink, CSF negative. HSV by PCR negative. Legionella antigen negative. West Nile virus CSF pending. 2. Acute respiratory failure, questionable left lower lobe infiltrate with radiographic improvement. 3. Louis's disease with immunocompromised state, on Rituxan. 4. Acute on chronic kidney disease. 5. Possible bilateral mastoiditis. PLAN: The patient remains hemodynamically stable, continues to spike fevers. So far, all cultures have been negative. Pending West Nile virus results pending. WBC labeled nuclear scan. Pending procalcitonin level. CRP on admission was 0.92. Dictated By: Giancarlo Hodges NP /[email or web address] /Document#: [id number]
--- NOTE | 2017-01-23 16:25 | PN ---
DATE: 01/23/2017 SUBJECTIVE DATA: The patient is in the intensive care unit. Remains on AC mode. Ventilatory support. The patient once taken off the sedation, he becomes hypertensive, tachypneic and in mild distress. Also, he has been having low-grade fever and hypertension and increased blood pressure. Urine output is good. White count is now normal. The patient is awaiting WBC scan which was ordered yesterday. PHYSICAL EXAM: VITAL SIGNS: T-max is a 100.5, pulse is 100, respirations 21, blood pressure 183/86, saturation 98 percent on 40 percent effaced to AC mode. No ABG today. GENERAL: Patient is currently sedated on Versed and fentanyl. Encephalopathic, nonresponsive to verbal stimuli. However, again sedated. HEART: S1 and S2. Slightly tachycardic. LUNGS: Decreased bilaterally. ABDOMEN: Soft, nontender. EXTREMITIES: Lower extremity, +1 edema mostly in the feet. Moving upper extremities. LABS: White BC 9.4, hemoglobin 9.2, hematocrit 26, platelet count 176, neutrophils 80 percent, eosinophils 60 percent, monocytes 11 percent. Chemistry, sodium is 144, potassium 3.7, chloride 114, bicarb 24, BUN is 51, creatinine 2.61 and glucose of 168. Spinal fluid serologies still shows basically all the bacterial serologies negative including Neisseria meningitis and gonorrhea negative. Strep negative. Strep pneumoniae negative. So far nothing is positive. Still awaiting West Nile serologies. White count 9.4, hemoglobin 9.2, hematocrit 26, platelet count 176, neutrophils 80 percent. Sodium 144, potassium 3.7, chloride 114, bicarb 24, BUN 51, creatinine 2.61 and glucose 168, last glucose of 184/ MEDICATIONS: The patient's meds reviewed include: 1. Midazolam. 2. Vancomycin, dose per pharmacy. 3. Keppra 250 q.12 hours. 4. Zosyn 3.375 q.8. 5. Lantus 4 units daily. 6. Prevacid 10 mg daily. 7. Fentanyl as directed. 8. . 9. [place] p.r.n. 10. Accu-Chek q.a.c. and q.h.s. 11. Ativan p.r.n. 12. Benadryl p.r.n. 13. Lopressor 25 b.i.d. 14. Colace 100 t.i.d. 15. Hydralazine p.r.n. 16. Milk of magnesium p.r.n. 17. NovoLog hypoglycemia protocol as directed. 18. Labetalol p.r.n. 19. Tylenol p.r.n. 20. Nicotine patch 40 mg daily. 21. Albuterol as directed p.r.n. 22. Uloric 40 mg daily. 23. Zofran p.r.n. 24. Morphine p.r.n. ASSESSMENT: The patient is an unfortunate 66-year-old, male, with history of Abbi's granulomatosis, chronic kidney disease, nicotine dependence, hypertension, presented with 1 week of fever, chills and generalized weakness and decreased oral intake. Unfortunately patient became progressively more encephalopathic requiring ventilation. 1. Respiratory. Continue full ventilatory support in the setting of encephalopathy. A chest x-ray done today shows improved appearance of the left lung base and smaller left pleural effusion. Continue antibiotics for pneumonia with Zosyn and vancomycin. White count is now normal. Further weaning as per pulmonology. 2. Cardiovascular. The patient is hypertensive and slightly tachycardia. Continue beta sirisha, Cardizem p.r.n. meds, which include labetalol and hydralazine. 3. Gastrointestinal. Hemoglobin and hematocrit remain stable. No need for blood products. Continue Prevacid for GI prophylaxis. 4. Neurologic. Encephalopathic. In the meantime to remain sedated to keep him comfortable. Follow up of spinal fluid serologies including West Nile. Etiology is still unclear. Differential diagnosis includes viral versus bacterial versus vasculitis related encephalopathy. 5. Ongoing fevers and initially elevated WBC. WBC scan is pending. 6. Case discussed with family and the neurologist. 7. Abbi granulomatosis. Appreciate Rheumatology follow-up. Further treatment such as steroids can be considered. 8. Nutrition. Continue OG tube feeding. Patient seen by a dietitian who recommended goal rate of 50 mL of fluids, we will increase diet slowly. 9. Renal. The patient's kidney function slightly worse, but patient with good urine output. In was 831, out was 1489. Continue to monitor. Will appreciate Nephrology input. 10. Hyperglycemia. On low-dose Lantus 4 units, may increase to 8 units if sugars are in the mid 100s. Condition remains guarded. We will follow. Dictated By: Gurwinder Triplett MD /eladio/eliza /Document#: [id number]
[2017-01-23] MEDS: DIPHENHYDRAMINE 50 MG INJ IV SCH (19:44)
[2017-01-23] MEDS: ACETAMINOPHEN 1000MG/100ML IV 100 ML IVPB SCH (19:45)
[2017-01-23] MEDS: IMMUNE GLOBULIN IV SCH (20:13)
[2017-01-23] MEDS: WATER STERILE FOR IV SCH (20:13)
[2017-01-24] VITALS (59 sets, daily range): BP systolic 90–198; BP diastolic 52–98; PULSE 63–103; RESP 14–36
[2017-01-24] MEDS: ACCU-CHEK XX SCH (01:32)
[2017-01-24] MEDS: INSULIN ASPART [NOVOLOG] 3 ML PEN SC SCH ×6 (01:34→22:04)
[2017-01-24] MEDS: MIDAZOLAM (DRIP) 50 mg/50 mL 50 ML IV SCH (02:39)
[2017-01-24 04:35] LABS: ABNORMAL IP MESSAGE 1; BASOPHILS % 0.3 % (0.0-2.0); EOSINOPHILS # 0.1 10^3/ul (0.0-0.5); EOSINOPHILS % 1.1 % (0.0-7.0); HEMATOCRIT 24.7 % (42.0-52.0); HEMOGLOBIN 8.9 g/dl (14.0-18.0); LYMPHOCYTES # 0.4 10^3/ul (0.8-2.9); LYMPHOCYTES % 4.1 % (15.0-51.0); MEAN CORPUSCULAR HEMOGLOBIN 28.3 pg (29.0-33.0); MEAN CORPUSCULAR VOLUME 78.7 fl (82.0-101.0); MEAN PLATELET VOLUME 11.4 fl (7.4-10.4); MONOCYTE # 0.6 10^3/ul (0.3-0.9); MONOCYTES % 6.3 % (0.0-11.0); NEUTROPHILS % 82.2 % (39.0-77.0); NUCLEATED RED BLOOD CELLS # 0.1 10^3/ul (0.0-0.0); NUCLEATED RED BLOOD CELLS% 0.5 /100WBC (0.0-0.0); PLATELET COUNT 141 10^3/UL (140-415); POSITIVE DIFF @See below; RED BLOOD COUNT 3.14 10^6/ul (4.70-6.10); RED CELL DISTRIBUTION WIDTH 16.5 % (11.5-14.5); WHITE BLOOD COUNT 9.5 10^3/ul (4.8-10.8)
[2017-01-24 05:11] LABS: ALBUMIN 2.3 g/dl (3.3-4.9); ALBUMIN/GLOBULIN RATIO 0.88; CALCIUM 8.8 mg/dl (8.4-10.2); CREATININE 2.81 mg/dl (0.61-1.24); POTASSIUM 3.1 mmol/L (3.5-5.1); TOTAL PROTEIN 4.9 g/dl (6.1-8.1)
[2017-01-24 05:12] LABS: MAGNESIUM 2.3 mg/dl (1.7-2.5); PHOSPHORUS 3.1 mg/dl (2.5-4.9)
[2017-01-24] MEDS: PIPER-TAZO 3.375 GM IV (PMX) 100 ML IVPB SCH ×2 (05:27→13:28)
[2017-01-24] MEDS: LANSOPRAZOLE 30 MG CAP NGT SCH (05:27)
[2017-01-24] MEDS ORDERED: POTASSIUM CHLORIDE 20 MEQ POWDER FOR ORAL SOLN NGT ONE (08:00)
[2017-01-24] MEDS: INSULIN GLARGINE [LANtus] 3 ML PEN SC SCH (08:26)
[2017-01-24] MEDS: DOCUSATE SODIUM 10 MG/ML (10ML CUP) NGT SCH ×3 (08:33→21:55)
[2017-01-24] MEDS: LORATADINE 10 MG TAB NGT SCH (08:34)
[2017-01-24] MEDS: FEBUXOSTAT 40 MG TABLET PO SCH (08:34)
[2017-01-24] MEDS: DILTIAZEM (CD) 240 MG CAP PO SCH (08:35)
[2017-01-24] MEDS: METOPROLOL 25 MG TAB NGT SCH ×2 (08:35→21:00)
--- NOTE | 2017-01-24 08:35 | PN ---
DATE: 01/24/2017 SUBJECTIVE DATA: The patient is critically ill, on ventilatory support. The patient was initiated on IVIG yesterday. No significant changes. Urinary output has been adequate. OBJECTIVE DATA: VITAL SIGNS: Blood pressure 118/71, respirations 20, pulse 68, temperature 98.6. I's and O's patient 3.2 L in, 2.4 L out. HEENT: Head is normocephalic. NECK: Supple. HEART: Regular rate. LUNGS: Diminished breath sounds at the base. ABDOMEN: Soft. Nontender to palpation. No rebound or guarding. EXTREMITIES: Negative for clubbing, cyanosis. No edema. DERMATOLOGIC: Clean. No rashes. MUSCULOSKELETAL: No joint effusion. NEUROLOGIC: No change in exam. MEDICATIONS: Reviewed. LABORATORY AND DIAGNOSTIC DATA: Sodium 140, potassium 3.1, chloride 109, BUN 54, creatinine 2.81. White count 9.5, hemoglobin 8.9, hematocrit 24.7, platelet count is 141. Chest x- ray on January 23 shows improved aeration left base. ASSESSMENT AND PLAN: 1. Nonoliguric acute kidney injury on top of chronic kidney disease stage 3, with previous baseline creatinine 1.720 mg/dL. Etiology of current acute kidney injury is multifactorial secondary to septic acute kidney injury, possible tubular injury. The patient had no evidence of GN. At this time. The patient's renal function continues to decline and appears to currently be in injury phase or possible acute tubular necrosis. At this point, would continue current treatment. Supportive care. Renally dose all meds. Continue IVIG at this low infusion rate. Monitor closely. 2. Hypokalemia. We will continue to monitor and replete. 3. Volume overload. Continue give intermittent diuretic therapy as needed. 4. Anemia. Monitor H and H levels. 5. Mineral bone disorder. Monitor calcium and phosphorus levels. 6. Severe sepsis. Etiology is multifactorial. Possible viral encephalitis, possible pneumonia. The patient is on antimicrobial therapy, antibiotic therapy. Currently receiving IVIG for possible West Nile encephalitis. 7. Ventilatory-dependent respiratory failure. Vent settings reviewed. ABGs reviewed. Continue to monitor. 8. History of Abbi's granulomatosis. Patient status post Rituxan. Continue to monitor. Follow up with Rheumatology. 9. Acute encephalopathy. Etiology is multifactorial, possible encephalitis, continue medical care. Follow up with Neurology. 10. Gastrointestinal and deep venous thrombosis prophylaxis. Continue PPI and sequential leg squeezes. Dictated By: Jim Sierra DO /[email or web address]/eliza /Document#: [id number]
[2017-01-24] MEDS: NICOTINE (14 MG/24 HR) PATCH TRANSDERM SCH (08:38)
[2017-01-24] MEDS: LEVETIRACETAM IV 250 MG in SOD CHLORIDE 0.9% 100 ML IVPB SCH (08:38)
--- NOTE | 2017-01-24 13:00 | CONS ---
Date/Time of Note Date/Time of Note DATE: 01/24/17 TIME: 12:58 Consult Date/Type/Reason Admit Date/Time Jan 17, 2017 at 17:33 Type of Consultation: Pulmonary Subjective No significant changes. Grimaces to painful stimuli occasionally opens eyes but not following commands. Objective Vital Signs Date Time Temp Pulse Resp B/P Pulse Ox O2 Delivery O2 Flow Rate FiO2 01/24/17 12:45 40 01/24/17 12:30 73 15 155/89 100 01/24/17 12:00 Mechanical Ventilator 01/24/17 11:30 97.8 Intake and Output 01/23/17 01/23/17 01/24/17 15:00 23:00 07:00 Intake Total 979.71 ml 1218.5 ml 1046 ml Output Total 1582 ml 413 ml 295 ml Balance -602.29 ml 805.5 ml 751 ml Exam VITAL SIGNS: HEENT: Orally intubated. Moist mucous membranes. Pupils equal, react to light. CARDIAC: S1, S2. No added sounds. CHEST: Diminished air entry bilaterally. ABDOMEN: Soft, nontender. No guarding or rebound. EXTREMITIES: No cyanosis, clubbing or edema. NEUROLOGIC: Generalized weakness. Moves all 4 limbs. Results/Medications Result Diagram: 01/24/17 0400 01/24/17 0400 Results 24 hrs Laboratory Tests Test 01/23/17 14:16 01/23/17 16:22 01/23/17 20:09 01/24/17 01:32 Vancomycin Level Trough 17.3 Bedside Glucose 191 210 226 H Test 01/24/17 04:00 01/24/17 05:27 01/24/17 08:25 01/24/17 11:41 White Blood Count 9.5 Red Blood Count 3.14 L Hemoglobin 8.9 L Hematocrit 24.7 L Mean Corpuscular Volume 78.7 L Mean Corpuscular Hemoglobin 28.3 L Mean Corpuscular Hemoglobin Concent 36.0 Red Cell Distribution Width 16.5 H Platelet Count 141 Mean Platelet Volume 11.4 H Neutrophils % 82.2 H Lymphocytes % 4.1 L Monocytes % 6.3 Eosinophils % 1.1 Basophils % 0.3 Nucleated Red Blood Cells % 0.5 H Neutrophils # (Manual) 7.8 H Lymphocytes # 0.4 L Monocytes # 0.6 Eosinophils # 0.1 Basophils # 0.0 Nucleated Red Blood Cells # 0.1 H Sodium Level 140 Potassium Level 3.1 L Chloride Level 109 Carbon Dioxide Level 27 Anion Gap 7 L Blood Urea Nitrogen 54 H Creatinine 2.81 H Glucose Level 197 Calcium Level 8.8 Phosphorus Level 3.1 Magnesium Level 2.3 Total Bilirubin 0.0 L Direct Bilirubin 0.00 Indirect Bilirubin 0.0 Aspartate Amino Transf (AST/SGOT) 33 Alanine Aminotransferase (ALT/SGPT) 108 H Alkaline Phosphatase 87 Total Protein 4.9 L Albumin 2.3 L Globulin 2.60 Albumin/Globulin Ratio 0.88 Bedside Glucose 196 289 H Lab Scanned Report REFERENCE LAB Test 01/24/17 12:01 Bedside Glucose 194 Medications Current Medications Ondansetron HCl (Zofran Inj) 4 mg Q6H PRN IV NAUSEA AND/OR VOMITING; Start 01/17 at 14:30 Morphine Sulfate (morphine) 2 mg Q4H PRN IV SEVERE PAIN LEVEL 7-10; Start at 14:30 Docusate Sodium (Colace) 100 mg Q12H PRN PO CONSTIPATION; Start 01/17/17 at 14: 30 Heparin Sodium (Porcine) (Heparin (5000 Units/0.5 ml)) 5,000 unit Q12 SC Last administered on 01/19/17 09:49; Admin Dose 5,000 UNIT; Start 01/17/17 at 21:00; Status Future Hold Febuxostat (Uloric) 40 mg DAILY PO Last administered on 01/24/17 08:34; Admin Dose 40 MG; Start 01/18/17 at 09:00 Diphenhydramine HCl (Benadryl) 25 mg Q4H PRN IV CHILLS; Start 01/17/17 at 18:30 Diltiazem HCl (Cardizem Cd) 240 mg DAILY PO Last administered on 01/24/17 08: 35; Admin Dose 240 MG; Start 01/17/17 at 18:30 Nicotine 1 patch 1 patch DAILY TRANSDERM Last administered on 01/24/17 08:38; Admin Dose 1 PATCH; Start 01/18/17 at 10:30 Acetaminophen (Ofirmev 1000mg/ 100ml Iv) 100 ml @ 400 mls/hr Q4 PRN IVPB FEVER GREATER THAN 100.6 Last administered on 01/23/17 14:09; Admin Dose 400 MLS /HR; Start 01/19/17 at 00:30 Hydralazine HCl (Apresoline) 10 mg Q4H PRN IV hypertension Last administered on 01/23/17 14:09; Admin Dose 10 MG; Start 01/19/17 at 01:00 Labetalol HCl (Labetalol) 20 mg Q3 PRN IV ELEVATED BLOOD PRESSURE; Start at 02:30 Labetalol HCl (Labetalol) 10 mg Q3 PRN IV ELEVATED BLOOD PRESSURE Last administered on 01/23/17 22:05; Admin Dose 10 MG; Start 01/19/17 at 02:30 Diagnostic Test (Pha) (Accu-Chek) 1 ea 02 XX Last administered on 01/24/17 01: 32; Admin Dose 1 EA; Start 01/20/17 at 02:00 Insulin Aspart (Novolog Insulin Pen) NOVOLOG *MILD* ALGORI... Q4 SC Last administered on 01/24/17 12:08; Admin Dose 2 UNIT; Start 01/19/17 at 09:00 Miscellaneous Information 1 ea NOTE XX ; Start 01/19/17 at 09:00 Glucose (Glutose) 15 gm Q15M PRN PO DECREASED GLUCOSE; Start 01/19/17 at 09:00 Glucose (Glutose) 22.5 gm Q15M PRN PO DECREASED GLUCOSE; Start 01/19/17 at 09:00 Dextrose (D50w Syringe) 25 ml Q15M PRN IV DECREASED GLUCOSE; Start 01/19/17 at 09:00 Dextrose (D50w Syringe) 50 ml Q15M PRN IV DECREASED GLUCOSE; Start 01/19/17 at 09:00 Glucagon (Glucagen) 1 mg Q15M PRN IM DECREASED GLUCOSE; Start 01/19/17 at 09:00 Glucose (Glutose) 15 gm Q15M PRN BUCCAL DECREASED GLUCOSE; Start 01/19/17 at 09: 00 IV Flush (NS 10 ml) 10 ml PRN PRN IV FLUSH LINE; Start 01/19/17 at 12:00 Diphenhydramine HCl (Benadryl Liquid Cup) 25 mg QHS PRN NGT ITCHING; Start 01/19 at 21:00 Hydralazine HCl (Apresoline) 25 mg Q4H PRN NGT hypertension; Start 01/19/17 at 20:30 Acetaminophen/ Hydrocodone Bitart ([place] (5/325)) 1 tab Q6H PRN NGT MODERATE PAIN LEVEL 4-6; Start 01/20/17 at 02:30 Loratadine (Claritin) 10 mg DAILY NGT Last administered on 01/24/17 08:34; Admin Dose 10 MG; Start 01/20/17 at 09:00 Magnesium Hydroxide (Milk Of Mag) 30 ml DAILY PRN NGT CONSTIPATION; Start at 20:30 Metoprolol Tartrate (Lopressor) 25 mg BID NGT Last administered on 01/24/17 08 :35; Admin Dose 25 MG; Start 01/19/17 at 21:00 Acetaminophen (Tylenol Liquid) 1,000 mg Q4H PRN NGT PAIN AND OR ELEVATED TEMP; Start 01/19/17 at 20:30; Status Future Hold Docusate Sodium (Colace Liquid Cup) 100 mg TID NGT Last administered on 12:18; Admin Dose 100 MG; Start 01/19/17 at 21:00 Lorazepam 2 mg 2 mg Q6H PRN IV before LP and MRI Last administered on 01/23/17 11:28; Admin Dose 2 MG; Start 01/20/17 at 00:00 Fentanyl (Sublimaze) 100 ml @ 2.5 mls/hr TITRATE IV Last administered on 22:54; Admin Dose 10 MLS/HR; Start 01/20/17 at 10:00 Lansoprazole 30 mg 30 mg DAILY@06 NGT Last administered on 01/24/17 05:27; Admin Dose 30 MG; Start 01/21/17 at 06:00 Norepinephrine 16 mg/Dextrose 500 ml @ 1.87 mls/hr TITRATE IV ; Start 01/20/17 at 17:30 Piperacillin Sod/ Tazobactam Sod 100 ml @ 200 mls/hr Q8 IVPB Last administered on 01/24/17 05:27; Admin Dose 200 MLS/HR; Start 01/21/17 at 22:00 Levetiracetam 250 mg/Sodium Chloride 102.5 ml @ 430 mls/hr Q12 IVPB Last administered on 01/24/17 08:38; Admin Dose 430 MLS/HR; Start 01/21/17 at 23:30 Midazolam HCl (Versed) 50 ml @ 1 mls/hr TITRATE IV Last administered on 02:39; Admin Dose 2 MLS/HR; Start 01/23/17 at 09:30 Insulin Glargine (Lantus) 6 unit DAILY@08 SC Last administered on 01/24/17 08: 26; Admin Dose 6 UNIT; Start 01/24/17 at 08:00 Diphenhydramine HCl 50 mg 50 mg DAILY@1930 IV Last administered on 01/23/17 19: 44; Admin Dose 50 MG; Start 01/23/17 at 19:30; Stop 01/26/17 at 19:31 Acetaminophen 100 ml @ 400 mls/hr DAILY@1930 IVPB Last administered on 19:45; Admin Dose 400 MLS/HR; Start 01/23/17 at 19:30; Stop 01/26/17 at 19: 44 Immune Globulin 35 gm/Sterile Water 700 ml @ 70 mls/hr DAILY@20 IV Last administered on 01/23/17 20:13; Admin Dose 70 MLS/HR; Start 01/23/17 at 20:00; Stop 01/27/17 at 05:59 Vancomycin HCl (Vancocin) 250 ml @ 125 mls/hr Q48H IVPB ; Start 01/25/17 at 15: 00 Assessment/Plan Chief Complaint/Hosp Course IMPRESSION: 1. Hypoxemic respiratory failure likely secondary to a change in neurological status with alveolar hypoventilation and inability to protect airway. 2. Acute encephalopathy of unclear etiology. Concern for a possible primary central nervous system disorder, such as West Nile virus or viral encephalitis. Status post lumbar puncture. 3. Hypokalemia. 4. Hx Lung Ca 5. Abbi granulomatosis. PLAN: 1. Continue mechanical ventilation. 2. Await lumbar puncture results 3. ID recs 4. DVT and GI prophylaxis. 5. Replace K. Check magnesium. 6. Continues Versed and pain control. 6. Rheum recs. ? steroid trial for possible mortar carrier vasculitis. ? cc 40 mins. Problems: CAROL DÍAZ MD, [facility] Jan 24, 2017 13:00
--- NOTE | 2017-01-24 14:57 | PN ---
DATE: 01/24/2017 SUBJECTIVE DATA: No events overnight. The patient is intubated and sedated. Looks comfortable. He spiked fever again of 101 last night. Currently afebrile with a temperature of 97.8, pulse respirations 15, blood pressure 155/89, saturation 100 on 40 FiO2. LABORATORY AND DIAGNOSTIC DATA: WBC 9.5. H and H 8.9 and 24.7, platelets 141, neutrophils 82.2. BUN 54, creatinine 2.81. MICROBIOLOGY: Cultures remain negative. DIAGNOSTICS: No chest x-ray this morning. Serology for West Nile virus still in process. INDWELLINGS: Endotracheal tube, NG tube, PICC line placed on January 19, [place] catheter. ANTIMICROBIALS: 1. Vancomycin. 2. Zosyn. PHYSICAL EXAMINATION: GENERAL: This is a well nourished, well developed, elderly man, who is intubated, sedated, in no distress. HEENT: Head atraumatic, normocephalic. Sclerae anicteric. Buccal mucosa dry. NECK: Supple. CHEST: Rise symmetrical. Breath sounds diminished at the bases. HEART: S1, S2. ABDOMEN: Soft, bowel sounds present. EXTREMITIES: Without cyanosis. ASSESSMENT: 1. Ongoing fevers, etiology unclear. 2. Acute encephalopathy, no evidence of bacterial meningitis with CSF cultures being negative. Guerda ink negative. HSV by PCR negative. CT brain negative. 3. Acute respiratory failure, patient was intubated for airway protection with an x-ray 2 days ago revealed questionable left lower lobe infiltrate; however, yesterday significantly improved. 4. Immunocompromised state. Secondary to his Rituxan. 5. Acute on chronic kidney disease. 6. Possible bilateral mastoiditis. 7. Abbi's disease. PLAN: The patient remains hemodynamically stable. Again, with on and off high fevers. All cultures have been negative. Awaiting for West Nile virus. CSF resolved. Awaiting for WBC labeled nuclear scan. Dictated By: Giancarlo Hodges NP /eladio/eliza /Document#: [id number]
--- NOTE | 2017-01-24 15:45 | PN ---
DATE: 01/24/2017 SUBJECTIVE DATA: The patient is sedated on Versed and fentanyl. Case discussed with Infectious Disease. His WBC count was just done. The patient is currently sedated. Continues to have low- grade temperature. T-max 101, yesterday at 2:00 p.m. Since then at night, he had a temperature of 99.6. The patient is currently sedated. OBJECTIVE DATA: VITAL SIGNS: Temperature 97.8, pulse 73, respirations 15, blood pressure 165/89, saturation 100 percent on 40 percent FIO2. No ABG today. GENERAL: The patient is sedated. Eyes closed. Comfortable. CARDIOVASCULAR: S1 and S2, regular rate. LUNGS: Decreased breath sounds on the left. ABDOMEN: Soft, nontender. EXTREMITIES: Trace edema throughout. LABORATORY AND DIAGNOSTIC DATA: White count 9.5, hemoglobin 8.9, hematocrit 25, platelet count 141. Neutrophils 82 percent, eosinophils 74 percent. Chemistry sodium is 140, potassium is low at 3.1, chloride 109, bicarb 27, BUN 64, creatinine worsened to 2.81 and glucose of 197. Last glucose of 194. LFTs improved. AST 33, ALT 108, albumin 2.3. C. diff and VDRL negative. Serology of spinal fluid, still no positive findings to explain the patient's encephalopathy. Blood culture dated January 21, negative. Urine culture dated January 21, negative. Fungal culture dated January 19, still pending. CSF culture negative. MEDICATIONS: 1. Vancomycin IV dose per Pharmacy. 2. Lantus 6 units daily. 3. IVIG daily. 4. Benadryl 50 IV daily. 5. Tylenol p.r.n. 6. Midalozam as directed. 7. Vancomcyin as directed. 8. Keppra 250 q.12. 9. Zosyn 3.375 IV q.8. 10. Prevacid 20 mg daily. 11. Fentanyl as directed. 12. Claritin 10 mg daily. 13. [place] p.r.n. 14. Accu-Chek q.a.c. and q.h.s. 15. Ativan p.r.n. 16. Lopressor 25 b.i.d. 17. Colace 100 t.i.d. 18. Hydralazine p.r.n. 19. Milk of magnesium p.r.n. 20. Hypoglycemia protocol as directed. 21. Labetalol p.r.n. 22. Nicotine patch daily. 23. Duonebs p.r.n. 24. Ativan p.r.n. 25. Uloric 4 mg daily. 26. Cardizem CD 240 daily. 27. Zofran p.r.n. 28. Morphine p.r.n. ASSESSMENT AND PLAN: This is an unfortunate 66-year-old male with history of Abbi's granulomatosis, chronic kidney disease, nicotine dependence, hypertension who presented initially with 1 week of fevers, chills, generalized weakness and decreased p.o. intake. Unfortunately, progressively became more encephalopathic requiring mechanical ventilation. 1. Respiratory: Continue full ventilator support. Not a candidate for weaning as the patient is still encephalopathic. Continue antibiotics for possible pneumonia. Chest x-ray done yesterday showed improved appearance of the left lung base and smaller left pleural effusion. 2. Cardiovascular, stable. Blood pressure medications being provided with Cardizem, beta-blockers and p.r.n. labetalol and hydralazine. Put him back on heparin for deep venous thrombosis prophylaxis as no acute bleeding noted. 3. Neurologic: Encephalopathic. Questionable viral encephalitis. Follow up all spinal fluid cytology. Started on IVIG. 4. Infectious Disease: Again, the patient with fevers, possibly from pneumonia. Continue Zosyn and vancomcyin. White count is normal. Follow up white blood cell scan. 5. Abbi's granulomatosis. Follow up Rheumatology recommendation. 6. Nutrition: Continue orogastric feedings per director furniture. 7. Renal: Kidney function has worsened. Potassium supplements will be given. 8. Hyperglycemia. Continue Lantus 6 units daily. CONDITION: Remains guarded. We will follow. Main concern is his neurological condition, we will follow. Dictated By: Gurwinder Triplett MD /eladio/eliza /Document#: [id number]
[2017-01-24] MEDS: DIPHENHYDRAMINE 50 MG INJ IV SCH (20:00)
--- NOTE | 2017-01-24 20:01 | RADRPT ---
PROCEDURE: Indium-111 labeled white blood cell scan CLINICAL INDICATION: 66 -year-old patient with fever and leukocytosis. TECHNIQUE: Following the intravenous injection of 0.33 mCi of Indium-111 labeled white blood cells , whole body anterior and posterior planar images were obtained along with spot views of the chest a nd abdomen 24 hours post injection. COMPARISON: No prior indium scans. FINDINGS: No definite abnormal areas of increased activity are seen in the study, including visualized portion s of the head and neck, chest, abdomen, pelvis and visualized portions of the upper and lower extrem ities bilaterally. Physiologic uptake is noted in the liver and spleen. IMPRESSION: No definite abnormal focal areas of increased activity. RPTAT: QQ .Vicki Schultz MD, Date Time Electronically viewed and signed by .Vicki Schultz MD, on 01/24/2017 20:01 .L/
[2017-01-24] MEDS: ACETAMINOPHEN 1000MG/100ML IV 100 ML IVPB SCH (20:03)
[2017-01-24] MEDS: IMMUNE GLOBULIN IV SCH (20:28)
[2017-01-24] MEDS: WATER STERILE FOR IV SCH (20:28)
[2017-01-24] MEDS: PIPER-TAZO 2.25 GM (PMX) 50 ML IVPB SCH (21:55)
[2017-01-24] MEDS: HEPARIN 5,000 UNIT/0.5 ML VIAL SC SCH (22:04)
[2017-01-25] VITALS (58 sets, daily range): BP systolic 109–193; BP diastolic 65–99; PULSE 65–101; RESP 14–26
[2017-01-25] MEDS: INSULIN ASPART [NOVOLOG] 3 ML PEN SC SCH ×6 (01:43→22:12)
[2017-01-25] MEDS: ACCU-CHEK XX SCH (01:44)
[2017-01-25] MEDS: MIDAZOLAM (DRIP) 50 mg/50 mL 50 ML IV SCH (04:10)
[2017-01-25] MEDS: FENTAnyl (DRIP) 1000 mcg/100mL 100 ML IV SCH (04:10)
[2017-01-25] MEDS ORDERED: VANCOMYCIN 1 GM in NS 250 ML IVPB SCH ×2 (05:00→15:00)
[2017-01-25] MEDS: LABETALOL HCL 20MG INJ IV PRN ×2 (05:07→13:37)
[2017-01-25] MEDS: LANSOPRAZOLE 30 MG CAP NGT SCH (05:07)
[2017-01-25 06:13] LABS: BASOPHILS % 0.4 % (0.0-2.0); EOSINOPHILS # 0.8 10^3/ul (0.0-0.5); EOSINOPHILS % 11.4 % (0.0-7.0); HEMATOCRIT 27.1 % (42.0-52.0); HEMOGLOBIN 9.4 g/dl (14.0-18.0); LYMPHOCYTES # 0.7 10^3/ul (0.8-2.9); LYMPHOCYTES % 10.6 % (15.0-51.0); MEAN CORPUSCULAR HEMOGLOBIN 27.2 pg (29.0-33.0); MEAN CORPUSCULAR HGB CONC 34.7 g/dl (32.0-37.0); MEAN CORPUSCULAR VOLUME 78.3 fl (82.0-101.0); MONOCYTE # 1.1 10^3/ul (0.3-0.9); MONOCYTES % 16.4 % (0.0-11.0); NEUTROPHILS % 57.1 % (39.0-77.0); NUCLEATED RED BLOOD CELLS% 0.4 /100WBC (0.0-0.0); PLATELET COUNT 155 10^3/UL (140-415); RED BLOOD COUNT 3.46 10^6/ul (4.70-6.10); RED CELL DISTRIBUTION WIDTH 17.2 % (11.5-14.5); WHITE BLOOD COUNT 6.9 10^3/ul (4.8-10.8)
[2017-01-25] MEDS: PIPER-TAZO 2.25 GM (PMX) 50 ML IVPB SCH (06:16)
[2017-01-25 06:48] LABS: CALCIUM 9.4 mg/dl (8.4-10.2); CREATININE 2.8 mg/dl (0.61-1.24); MAGNESIUM 2.5 mg/dl (1.7-2.5); PHOSPHORUS 3.6 mg/dl (2.5-4.9); POTASSIUM 3.8 mmol/L (3.5-5.1)
[2017-01-25] MEDS: INSULIN GLARGINE [LANtus] 3 ML PEN SC SCH ×2 (08:01→14:30)
[2017-01-25] MEDS: DOCUSATE SODIUM 10 MG/ML (10ML CUP) NGT SCH ×3 (08:56→22:03)
[2017-01-25] MEDS: FEBUXOSTAT 40 MG TABLET PO SCH (08:57)
[2017-01-25] MEDS: NICOTINE (14 MG/24 HR) PATCH TRANSDERM SCH ×2 (08:57→09:00)
[2017-01-25] MEDS: METOPROLOL 25 MG TAB NGT SCH (08:58)
[2017-01-25] MEDS: LORATADINE 10 MG TAB NGT SCH (08:58)
[2017-01-25] MEDS ORDERED: FUROSEMIDE 20 MG INJ IV ONE (09:00)
[2017-01-25] MEDS: HEPARIN 5,000 UNIT/0.5 ML VIAL SC SCH ×2 (09:08→22:13)
[2017-01-25] MEDS: DILTIAZEM (CD) 240 MG CAP PO SCH (09:14)
--- NOTE | 2017-01-25 09:57 | CONS ---
Date/Time of Note Date/Time of Note DATE: 01/25/17 TIME: 09:56 Consult Date/Type/Reason Admit Date/Time Jan 17, 2017 at 17:33 Type of Consultation: Pulmonary Subjective No change, grimaces to painful stimuli, not following commands. Objective Vital Signs Date Time Temp Pulse Resp B/P Pulse Ox O2 Delivery O2 Flow Rate FiO2 01/25/17 08:00 40 01/25/17 08:00 79 01/25/17 06:00 15 166/79 100 Mechanical Ventilator 01/25/17 04:00 97.6 Intake and Output 01/24/17 01/24/17 01/25/17 15:00 23:00 07:00 Intake Total 641.0 ml 711.0 ml 950.0 ml Output Total 756 ml 514 ml 701 ml Balance -115.0 ml 197.0 ml 249.0 ml Exam VITAL SIGNS: HEENT: Orally intubated. Moist mucous membranes. Pupils equal, react to light. CARDIAC: S1, S2. No added sounds. CHEST: Diminished air entry bilaterally. ABDOMEN: Soft, nontender. No guarding or rebound. EXTREMITIES: No cyanosis, clubbing or edema. NEUROLOGIC: Generalized weakness. Moves all 4 limbs. Results/Medications Result Diagram: 01/25/17 0430 01/25/17 0430 Results 24 hrs Laboratory Tests Test 01/24/17 11:41 01/24/17 12:01 01/24/17 17:54 01/24/17 21:57 Lab Scanned Report REFERENCE LAB Bedside Glucose 194 139 153 Test 01/25/17 01:37 01/25/17 04:30 01/25/17 05:11 01/25/17 09:04 Bedside Glucose 199 197 235 H White Blood Count 6.9 # Red Blood Count 3.46 L Hemoglobin 9.4 L Hematocrit 27.1 L Mean Corpuscular Volume 78.3 L Mean Corpuscular Hemoglobin 27.2 L Mean Corpuscular Hemoglobin Concent 34.7 Red Cell Distribution Width 17.2 H Platelet Count 155 Mean Platelet Volume 12.0 H Neutrophils % 57.1 Lymphocytes % 10.6 L Monocytes % 16.4 H Eosinophils % 11.4 H Basophils % 0.4 Nucleated Red Blood Cells % 0.4 H Neutrophils # (Manual) 3.9 Lymphocytes # 0.7 L Monocytes # 1.1 H Eosinophils # 0.8 H Basophils # 0.0 Nucleated Red Blood Cells # 0.0 Sodium Level 142 Potassium Level 3.8 Chloride Level 109 Carbon Dioxide Level 28 Anion Gap 9 Blood Urea Nitrogen 56 H Creatinine 2.80 H Glucose Level 196 Calcium Level 9.4 Phosphorus Level 3.6 Magnesium Level 2.5 Medications Current Medications Ondansetron HCl (Zofran Inj) 4 mg Q6H PRN IV NAUSEA AND/OR VOMITING; Start 01/17 at 14:30 Morphine Sulfate (morphine) 2 mg Q4H PRN IV SEVERE PAIN LEVEL 7-10; Start at 14:30 Docusate Sodium (Colace) 100 mg Q12H PRN PO CONSTIPATION; Start 01/17/17 at 14: 30 Febuxostat (Uloric) 40 mg DAILY PO Last administered on 01/25/17 08:57; Admin Dose 40 MG; Start 01/18/17 at 09:00 Diphenhydramine HCl (Benadryl) 25 mg Q4H PRN IV CHILLS; Start 01/17/17 at 18:30 Diltiazem HCl (Cardizem Cd) 240 mg DAILY PO Last administered on 01/25/17 09: 14; Admin Dose 240 MG; Start 01/17/17 at 18:30 Nicotine 1 patch 1 patch DAILY TRANSDERM Last administered on 01/25/17 08:57; Admin Dose 1 PATCH; Start 01/18/17 at 10:30 Acetaminophen (Ofirmev 1000mg/ 100ml Iv) 100 ml @ 400 mls/hr Q4 PRN IVPB FEVER GREATER THAN 100.6 Last administered on 01/23/17 14:09; Admin Dose 400 MLS /HR; Start 01/19/17 at 00:30 Hydralazine HCl (Apresoline) 10 mg Q4H PRN IV hypertension Last administered on 01/23/17 14:09; Admin Dose 10 MG; Start 01/19/17 at 01:00 Labetalol HCl (Labetalol) 20 mg Q3 PRN IV ELEVATED BLOOD PRESSURE Last administered on 01/25/17 05:07; Admin Dose 20 MG; Start 01/19/17 at 02:30 Labetalol HCl (Labetalol) 10 mg Q3 PRN IV ELEVATED BLOOD PRESSURE Last administered on 01/23/17 22:05; Admin Dose 10 MG; Start 01/19/17 at 02:30 Diagnostic Test (Pha) (Accu-Chek) 1 ea 02 XX Last administered on 01/24/17 01: 32; Admin Dose 1 EA; Start 01/20/17 at 02:00 Insulin Aspart (Novolog Insulin Pen) NOVOLOG *MILD* ALGORI... Q4 SC Last administered on 01/25/17 09:07; Admin Dose 3 UNIT; Start 01/19/17 at 09:00 Miscellaneous Information 1 ea NOTE XX ; Start 01/19/17 at 09:00 Glucose (Glutose) 15 gm Q15M PRN PO DECREASED GLUCOSE; Start 01/19/17 at 09:00 Glucose (Glutose) 22.5 gm Q15M PRN PO DECREASED GLUCOSE; Start 01/19/17 at 09:00 Dextrose (D50w Syringe) 25 ml Q15M PRN IV DECREASED GLUCOSE; Start 01/19/17 at 09:00 Dextrose (D50w Syringe) 50 ml Q15M PRN IV DECREASED GLUCOSE; Start 01/19/17 at 09:00 Glucagon (Glucagen) 1 mg Q15M PRN IM DECREASED GLUCOSE; Start 01/19/17 at 09:00 Glucose (Glutose) 15 gm Q15M PRN BUCCAL DECREASED GLUCOSE; Start 01/19/17 at 09: 00 IV Flush (NS 10 ml) 10 ml PRN PRN IV FLUSH LINE; Start 01/19/17 at 12:00 Diphenhydramine HCl (Benadryl Liquid Cup) 25 mg QHS PRN NGT ITCHING; Start 01/19 at 21:00 Hydralazine HCl (Apresoline) 25 mg Q4H PRN NGT hypertension; Start 01/19/17 at 20:30 Acetaminophen/ Hydrocodone Bitart ([place] (5/325)) 1 tab Q6H PRN NGT MODERATE PAIN LEVEL 4-6; Start 01/20/17 at 02:30 Loratadine (Claritin) 10 mg DAILY NGT Last administered on 01/25/17 08:58; Admin Dose 10 MG; Start 01/20/17 at 09:00 Magnesium Hydroxide (Milk Of Mag) 30 ml DAILY PRN NGT CONSTIPATION; Start at 20:30 Metoprolol Tartrate (Lopressor) 25 mg BID NGT Last administered on 01/25/17 08 :58; Admin Dose 25 MG; Start 01/19/17 at 21:00 Acetaminophen (Tylenol Liquid) 1,000 mg Q4H PRN NGT PAIN AND OR ELEVATED TEMP; Start 01/19/17 at 20:30; Status Future Hold Docusate Sodium (Colace Liquid Cup) 100 mg TID NGT Last administered on 08:56; Admin Dose 100 MG; Start 01/19/17 at 21:00 Lorazepam 2 mg 2 mg Q6H PRN IV before LP and MRI Last administered on 01/23/17 11:28; Admin Dose 2 MG; Start 01/20/17 at 00:00 Fentanyl (Sublimaze) 100 ml @ 2.5 mls/hr TITRATE IV Last administered on 04:10; Admin Dose 2.5 MLS/HR; Start 01/20/17 at 10:00 Lansoprazole 30 mg 30 mg DAILY@06 NGT Last administered on 01/25/17 05:07; Admin Dose 30 MG; Start 01/21/17 at 06:00 Norepinephrine 16 mg/Dextrose 500 ml @ 1.87 mls/hr TITRATE IV ; Start 01/20/17 at 17:30 Midazolam HCl (Versed) 50 ml @ 1 mls/hr TITRATE IV Last administered on 04:10; Admin Dose 2 MLS/HR; Start 01/23/17 at 09:30 Insulin Glargine (Lantus) 6 unit DAILY@08 SC Last administered on 01/25/17 08: 01; Admin Dose 6 UNIT; Start 01/24/17 at 08:00 Diphenhydramine HCl 50 mg 50 mg DAILY@1930 IV Last administered on 01/24/17 20 :00; Admin Dose 50 MG; Start 01/23/17 at 19:30; Stop 01/26/17 at 19:31 Acetaminophen 100 ml @ 400 mls/hr DAILY@1930 IVPB Last administered on 20:03; Admin Dose 400 MLS/HR; Start 01/23/17 at 19:30; Stop 01/26/17 at 19: 44 Immune Globulin 35 gm/Sterile Water 700 ml @ 70 mls/hr DAILY@20 IV Last administered on 01/24/17 20:28; Admin Dose 70 MLS/HR; Start 01/23/17 at 20:00; Stop 01/27/17 at 05:59 Vancomycin HCl (Vancocin) 250 ml @ 125 mls/hr Q48H IVPB ; Start 01/25/17 at 15: 00 Heparin Sodium (Porcine) 5000 unit 5,000 unit BID SC Last administered on 09:08; Admin Dose 5,000 UNIT; Start 01/24/17 at 21:00 Piperacillin Sod/ Tazobactam Sod (Zosyn 2.25gm/ 50ml (Pmx)) 50 ml @ 100 mls/hr Q8 IVPB Last administered on 01/25/17 06:16; Admin Dose 100 MLS/HR; Start 03/02 at 22:00 Assessment/Plan Chief Complaint/Hosp Course IMPRESSION: 1. Hypoxemic respiratory failure likely secondary to a change in neurological status with alveolar hypoventilation and inability to protect airway. 2. Acute encephalopathy of unclear etiology. Concern for a possible primary central nervous system disorder, such as West Nile virus or viral encephalitis. Status post lumbar puncture. Further work up pending 3. Hypokalemia. 4. Hx Lung Ca 5. Abbi granulomatosis. PLAN: 1. Continue mechanical ventilation. Not stable for extubation at present secondary to encephalopathy and inability to protect airway. 2. Await lumbar puncture results 3. ID recs 4. DVT and GI prophylaxis. 5. Replace K. Check magnesium. 6. Continues Versed and pain control. 6. Rheum recs. ? steroid trial for possible machinist apprentice vasculitis. ? cc 40 mins. Problems: CAROL DÍAZ MD, [facility] Jan 25, 2017 09:57
--- NOTE | 2017-01-25 13:46 | CONS ---
Date/Time of Note Date/Time of Note DATE: 01/25/17 TIME: 13:39 Consult Date/Type/Reason Admit Date/Time Jan 17, 2017 at 17:33 Type of Consultation: Rheum Subjective Still sedated and encepahlopathic and unable to be weaned and extubated. WBC scan and CT abd and pelvis have all been negative. Given IVIG. Objective Vital Signs Date Time Temp Pulse Resp B/P Pulse Ox O2 Delivery O2 Flow Rate FiO2 01/25/17 13:00 Mechanical Ventilator 01/25/17 12:30 76 17 100 01/25/17 12:00 99.0 01/25/17 09:35 40 Intake and Output 01/24/17 01/24/17 01/25/17 15:00 23:00 07:00 Intake Total 641.0 ml 711.0 ml 1005.0 ml Output Total 756 ml 514 ml 701 ml Balance -115.0 ml 197.0 ml 304.0 ml Exam ENERAL: Intubated, sedated; SKIN: No rash. HEENT: ET Tube in place NECK: No lymphadenopathy. HEART: S1, S2. Regular rate and rhythm. LUNGS: Clear bilaterally to auscultation. ABDOMEN: Soft, No masses or tenderness. EXTREMITIES: No cyanosis, no edema. MUSCULOSKELETAL: No synovitis Results/Medications Result Diagram: 01/25/17 0430 01/25/17 0430 Results 24 hrs Laboratory Tests Test 01/24/17 17:54 01/24/17 21:57 01/25/17 01:37 01/25/17 04:30 Bedside Glucose 139 153 199 White Blood Count 6.9 # Red Blood Count 3.46 L Hemoglobin 9.4 L Hematocrit 27.1 L Mean Corpuscular Volume 78.3 L Mean Corpuscular Hemoglobin 27.2 L Mean Corpuscular Hemoglobin Concent 34.7 Red Cell Distribution Width 17.2 H Platelet Count 155 Mean Platelet Volume 12.0 H Neutrophils % 57.1 Lymphocytes % 10.6 L Monocytes % 16.4 H Eosinophils % 11.4 H Basophils % 0.4 Nucleated Red Blood Cells % 0.4 H Neutrophils # (Manual) 3.9 Lymphocytes # 0.7 L Monocytes # 1.1 H Eosinophils # 0.8 H Basophils # 0.0 Nucleated Red Blood Cells # 0.0 Sodium Level 142 Potassium Level 3.8 Chloride Level 109 Carbon Dioxide Level 28 Anion Gap 9 Blood Urea Nitrogen 56 H Creatinine 2.80 H Glucose Level 196 Calcium Level 9.4 Phosphorus Level 3.6 Magnesium Level 2.5 Test 01/25/17 05:11 01/25/17 09:04 01/25/17 12:43 Bedside Glucose 197 235 H 230 H Medications Current Medications Ondansetron HCl (Zofran Inj) 4 mg Q6H PRN IV NAUSEA AND/OR VOMITING; Start 01/17 at 14:30 Morphine Sulfate (morphine) 2 mg Q4H PRN IV SEVERE PAIN LEVEL 7-10; Start at 14:30 Docusate Sodium (Colace) 100 mg Q12H PRN PO CONSTIPATION; Start 01/17/17 at 14: 30 Febuxostat (Uloric) 40 mg DAILY PO Last administered on 01/25/17 08:57; Admin Dose 40 MG; Start 01/18/17 at 09:00 Diphenhydramine HCl (Benadryl) 25 mg Q4H PRN IV CHILLS; Start 01/17/17 at 18:30 Diltiazem HCl (Cardizem Cd) 240 mg DAILY PO Last administered on 01/25/17 09: 14; Admin Dose 240 MG; Start 01/17/17 at 18:30 Nicotine 1 patch 1 patch DAILY TRANSDERM Last administered on 01/25/17 09:00; Admin Dose 1 PATCH; Start 01/18/17 at 10:30 Acetaminophen (Ofirmev 1000mg/ 100ml Iv) 100 ml @ 400 mls/hr Q4 PRN IVPB FEVER GREATER THAN 100.6 Last administered on 01/23/17 14:09; Admin Dose 400 MLS /HR; Start 01/19/17 at 00:30 Hydralazine HCl (Apresoline) 10 mg Q4H PRN IV hypertension Last administered on 01/23/17 14:09; Admin Dose 10 MG; Start 01/19/17 at 01:00 Labetalol HCl (Labetalol) 20 mg Q3 PRN IV ELEVATED BLOOD PRESSURE Last administered on 01/25/17 05:07; Admin Dose 20 MG; Start 01/19/17 at 02:30 Labetalol HCl (Labetalol) 10 mg Q3 PRN IV ELEVATED BLOOD PRESSURE Last administered on 01/25/17 13:37; Admin Dose 10 MG; Start 01/19/17 at 02:30 Diagnostic Test (Pha) (Accu-Chek) 1 ea 02 XX Last administered on 01/24/17 01: 32; Admin Dose 1 EA; Start 01/20/17 at 02:00 Insulin Aspart (Novolog Insulin Pen) NOVOLOG *MILD* ALGORI... Q4 SC Last administered on 01/25/17 12:51; Admin Dose 3 UNIT; Start 01/19/17 at 09:00 Miscellaneous Information 1 ea NOTE XX ; Start 01/19/17 at 09:00 Glucose (Glutose) 15 gm Q15M PRN PO DECREASED GLUCOSE; Start 01/19/17 at 09:00 Glucose (Glutose) 22.5 gm Q15M PRN PO DECREASED GLUCOSE; Start 01/19/17 at 09:00 Dextrose (D50w Syringe) 25 ml Q15M PRN IV DECREASED GLUCOSE; Start 01/19/17 at 09:00 Dextrose (D50w Syringe) 50 ml Q15M PRN IV DECREASED GLUCOSE; Start 01/19/17 at 09:00 Glucagon (Glucagen) 1 mg Q15M PRN IM DECREASED GLUCOSE; Start 01/19/17 at 09:00 Glucose (Glutose) 15 gm Q15M PRN BUCCAL DECREASED GLUCOSE; Start 01/19/17 at 09: 00 IV Flush (NS 10 ml) 10 ml PRN PRN IV FLUSH LINE; Start 01/19/17 at 12:00 Diphenhydramine HCl (Benadryl Liquid Cup) 25 mg QHS PRN NGT ITCHING; Start 01/19 at 21:00 Hydralazine HCl (Apresoline) 25 mg Q4H PRN NGT hypertension Last administered on 01/25/17 12:17; Admin Dose 25 MG; Start 01/19/17 at 20:30 Acetaminophen/ Hydrocodone Bitart ([place] (5/325)) 1 tab Q6H PRN NGT MODERATE PAIN LEVEL 4-6; Start 01/20/17 at 02:30 Loratadine (Claritin) 10 mg DAILY NGT Last administered on 01/25/17 08:58; Admin Dose 10 MG; Start 01/20/17 at 09:00 Magnesium Hydroxide (Milk Of Mag) 30 ml DAILY PRN NGT CONSTIPATION; Start at 20:30 Metoprolol Tartrate (Lopressor) 25 mg BID NGT Last administered on 01/25/17 08 :58; Admin Dose 25 MG; Start 01/19/17 at 21:00 Acetaminophen (Tylenol Liquid) 1,000 mg Q4H PRN NGT PAIN AND OR ELEVATED TEMP; Start 01/19/17 at 20:30; Status Future Hold Docusate Sodium (Colace Liquid Cup) 100 mg TID NGT Last administered on 12:53; Admin Dose 100 MG; Start 01/19/17 at 21:00 Lorazepam 2 mg 2 mg Q6H PRN IV before LP and MRI Last administered on 01/23/17 11:28; Admin Dose 2 MG; Start 01/20/17 at 00:00 Fentanyl (Sublimaze) 100 ml @ 2.5 mls/hr TITRATE IV Last administered on 04:10; Admin Dose 2.5 MLS/HR; Start 01/20/17 at 10:00 Lansoprazole 30 mg 30 mg DAILY@06 NGT Last administered on 01/25/17 05:07; Admin Dose 30 MG; Start 01/21/17 at 06:00 Norepinephrine 16 mg/Dextrose 500 ml @ 1.87 mls/hr TITRATE IV ; Start 01/20/17 at 17:30 Midazolam HCl (Versed) 50 ml @ 1 mls/hr TITRATE IV Last administered on 04:10; Admin Dose 2 MLS/HR; Start 01/23/17 at 09:30 Diphenhydramine HCl 50 mg 50 mg DAILY@1930 IV Last administered on 01/24/17 20 :00; Admin Dose 50 MG; Start 01/23/17 at 19:30; Stop 01/26/17 at 19:31 Acetaminophen 100 ml @ 400 mls/hr DAILY@1930 IVPB Last administered on 20:03; Admin Dose 400 MLS/HR; Start 01/23/17 at 19:30; Stop 01/26/17 at 19: 44 Immune Globulin/ Sterile Water (Carimune Nf/ Water Sterile For Inj) 700 ml @ 70 mls/hr DAILY@20 IV Last administered on 9/10/17at 20:28; Admin Dose 70 MLS/ HR; Start 01/23/17 at 20:00; Stop 01/27/17 at 05:59 Heparin Sodium (Porcine) (Heparin (5000 Units/0.5 ml)) 5,000 unit BID SC Last administered on 01/25/17t 09:08; Admin Dose 5,000 UNIT; Start 01/24/17 at 21:00 Insulin Glargine (Lantus) 10 unit DAILY@08 SC ; Start 01/26/17 at 08:00 Assessment/Plan Chief Complaint/Hosp Course IMPRESSION AND PLAN: 66-year-old male with history of hypertension, adenocarcinoma of the lung, gout and 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 He has been intubated after having some respiratory distress that pulmonary feels is more central in etiology 1. Respiratory failure- most likely central in Etiology. 2. Fevers now resolved on antibiotics. WBC scan negative Patient had been given some IV steroids and IVIG without any change. 3. Abbi's. The patient is currently on Rituxan which is an immunosuppressant. Again, this puts him at risk for opportunistic infections, so for this reason, I would consider him more at risk of having infection as a cause of a fever. Also his Abbi's has been very well controlled since his diagnosis, he has never had a flare, he has never been hospitalized, with Cytoxan and now Rituxan, I feel like it is unlikely that it would be a Abbi's flare. 4 History of gout. Uric acid levels are low. There is no joint swelling. No joint pain. Therefore, we will just follow him. 5 Acute on Chronic kidney disease, likely secondary to infection. I Problems: SHIRLEY MORALES MD Jan 25, 2017 13:46
[2017-01-25] MEDS: hydrALAzine 20 MG INJ IV PRN ×2 (15:50→17:13)
[2017-01-25 16:06] LABS: MICROALBUMIN 85.6 mg/dL
--- NOTE | 2017-01-25 17:51 | PN ---
DATE: 01/25/2017 SUBJECTIVE DATA: Patient remains critically ill on full ventilatory support. Patient is receiving IVIG. No other events noted. No hemoptysis, hematemesis, hematochezia. OBJECTIVE DATA: VITAL SIGNS: Blood pressure is 166/79, respirations 15, pulse 68, temperature 97.6. HEENT: Head is normocephalic. NECK: Supple. HEART: Regular rate. LUNGS: Diminished breath sounds at the base. ABDOMEN: Soft, nontender to palpation. No rebound, guarding. EXTREMITIES: Negative for clubbing, cyanosis. No edema. DERMATOLOGIC: Clean. No rashes. MUSCULOSKELETAL: No joint effusion. NEUROLOGIC: No change in exam. MEDICATIONS: Reviewed. LABORATORY DATA: Sodium 142, potassium 3.8, chloride 109, BUN 56, creatinine 2.80. White count 6.9, hemoglobin 9.4, hematocrit 27.1, platelet count 155,000. ASSESSMENT AND PLAN: 1. Nonoliguric acute kidney injury on top of chronic kidney disease with previous baseline creatinine 1.7 to 2.0 mg/dL. Etiology of acute kidney injury is multifactorial secondary to septic urinary tract infection, possible tubular injury. No evidence of active glomerulonephritis at this time. Patient's renal function continues to fluctuate although been stable in the last 24 hours. Possibly entering maintenance phase of acute tubular necrosis. At this point, continue current treatment and supportive care. Renally dose medications. Continue to monitor closely on IVIG therapy. 2. Hypokalemia, improved. Continue to monitor. 3. Volume overload. Continue to give intermittent diuretic therapy as needed. 4. Anemia. Monitor hemoglobin and hematocrit levels. 5. Mineral bone disorder. Monitor calcium and phosphorus levels. 6. Severe sepsis, etiology is multifactorial. Possible viral encephalitis and pneumonia. Continue current antimicrobial antibiotic therapy. Continue IVIG for possible West Nile encephalitis. 7. Ventilatory-dependent respiratory failure. Vent settings, ABGs reviewed. 8. History of Abbi's granulomatosis. Patient is status post Rituxan. Continue to monitor. Follow up with Hematology. 9. Acute encephalopathy, etiology is multifactorial, possible encephalitis. Follow up with Neurology. 10. Gastrointestinal and deep venous thrombosis prophylaxis. Continue proton pump inhibitor and sequential leg squeezes. Dictated By: Jim Sierra DO /[email or web address] /Document#: [id number]
--- NOTE | 2017-01-25 18:04 | CONS ---
Date/Time of Note Date/Time of Note DATE: 01/25/17 TIME: 17:58 Consult Date/Type/Reason Admit Date/Time Jan 17, 2017 at 17:33 Type of Consultation: neurology Subjective off versed, moves UE mostly left spontaneously, slowly, does not wake up Objective Vital Signs Date Time Temp Pulse Resp B/P Pulse Ox O2 Delivery O2 Flow Rate FiO2 01/25/17 17:22 88 20 99 40 01/25/17 16:30 180/85 Mechanical Ventilator 01/25/17 16:00 99.4 Intake and Output 01/24/17 01/24/17 01/25/17 15:00 23:00 07:00 Intake Total 641.0 ml 711.0 ml 1005.0 ml Output Total 756 ml 514 ml 701 ml Balance -115.0 ml 197.0 ml 304.0 ml Exam NEUROLOGIC: Patient is lethargic. Sedated,only fentanyl, versed was stopped moves UE at times spontaneously , more his left UE. Does not follow commands. No definite response to visual threat bilaterally. Pupils about 2 mm sluggish. Extraocular movements absent spontaneously, able to cross midline on oculocephalic maneuver. Corneal reflexes present bilaterally, as well as gag. Motor strength examination trace withdrawal LE to pain, moved UE . Increased tone in upper extremities on attempted full elbow flexion . Deep tendon reflexes, 2+ upper extremities and knees, absent ankle jerks. No response to plantar stimulation bilaterally. Coordination examination shows no more postural tremor, no more myoclonic jerks which was seen before. Severe nuchal rigidity still present Results/Medications Result Diagram: 01/25/17 0430 01/25/17 0430 Results 24 hrs Laboratory Tests Test 01/24/17 21:57 01/25/17 01:37 01/25/17 04:30 01/25/17 05:11 Bedside Glucose 153 199 197 White Blood Count 6.9 # Red Blood Count 3.46 L Hemoglobin 9.4 L Hematocrit 27.1 L Mean Corpuscular Volume 78.3 L Mean Corpuscular Hemoglobin 27.2 L Mean Corpuscular Hemoglobin Concent 34.7 Red Cell Distribution Width 17.2 H Platelet Count 155 Mean Platelet Volume 12.0 H Neutrophils % 57.1 Lymphocytes % 10.6 L Monocytes % 16.4 H Eosinophils % 11.4 H Basophils % 0.4 Nucleated Red Blood Cells % 0.4 H Neutrophils # (Manual) 3.9 Lymphocytes # 0.7 L Monocytes # 1.1 H Eosinophils # 0.8 H Basophils # 0.0 Nucleated Red Blood Cells # 0.0 Sodium Level 142 Potassium Level 3.8 Chloride Level 109 Carbon Dioxide Level 28 Anion Gap 9 Blood Urea Nitrogen 56 H Creatinine 2.80 H Glucose Level 196 Calcium Level 9.4 Phosphorus Level 3.6 Magnesium Level 2.5 Test 01/25/17 09:04 01/25/17 12:43 01/25/17 17:11 Bedside Glucose 235 H 230 H 182 Medications Current Medications Ondansetron HCl (Zofran Inj) 4 mg Q6H PRN IV NAUSEA AND/OR VOMITING; Start 01/17 at 14:30 Morphine Sulfate (morphine) 2 mg Q4H PRN IV SEVERE PAIN LEVEL 7-10; Start at 14:30 Docusate Sodium (Colace) 100 mg Q12H PRN PO CONSTIPATION; Start 01/17/17 at 14: 30 Febuxostat (Uloric) 40 mg DAILY PO Last administered on 01/25/17 08:57; Admin Dose 40 MG; Start 01/18/17 at 09:00 Diphenhydramine HCl (Benadryl) 25 mg Q4H PRN IV CHILLS; Start 01/17/17 at 18:30 Diltiazem HCl (Cardizem Cd) 240 mg DAILY PO Last administered on 01/25/17 09: 14; Admin Dose 240 MG; Start 01/17/17 at 18:30 Nicotine 1 patch 1 patch DAILY TRANSDERM Last administered on 01/25/17 09:00; Admin Dose 1 PATCH; Start 01/18/17 at 10:30 Acetaminophen (Ofirmev 1000mg/ 100ml Iv) 100 ml @ 400 mls/hr Q4 PRN IVPB FEVER GREATER THAN 100.6 Last administered on 01/23/17 14:09; Admin Dose 400 MLS /HR; Start 01/19/17 at 00:30 Hydralazine HCl (Apresoline) 10 mg Q4H PRN IV hypertension Last administered on 01/25/17 17:13; Admin Dose 10 MG; Start 01/19/17 at 01:00 Labetalol HCl (Labetalol) 20 mg Q3 PRN IV ELEVATED BLOOD PRESSURE Last administered on 01/25/17 05:07; Admin Dose 20 MG; Start 01/19/17 at 02:30 Labetalol HCl (Labetalol) 10 mg Q3 PRN IV ELEVATED BLOOD PRESSURE Last administered on 01/25/17 13:37; Admin Dose 10 MG; Start 01/19/17 at 02:30 Diagnostic Test (Pha) (Accu-Chek) 1 ea 02 XX Last administered on 01/24/17 01: 32; Admin Dose 1 EA; Start 01/20/17 at 02:00 Insulin Aspart (Novolog Insulin Pen) NOVOLOG *MILD* ALGORI... Q4 SC Last administered on 01/25/17 17:16; Admin Dose 2 UNIT; Start 01/19/17 at 09:00 Miscellaneous Information 1 ea NOTE XX ; Start 01/19/17 at 09:00 Glucose (Glutose) 15 gm Q15M PRN PO DECREASED GLUCOSE; Start 01/19/17 at 09:00 Glucose (Glutose) 22.5 gm Q15M PRN PO DECREASED GLUCOSE; Start 01/19/17 at 09:00 Dextrose (D50w Syringe) 25 ml Q15M PRN IV DECREASED GLUCOSE; Start 01/19/17 at 09:00 Dextrose (D50w Syringe) 50 ml Q15M PRN IV DECREASED GLUCOSE; Start 01/19/17 at 09:00 Glucagon (Glucagen) 1 mg Q15M PRN IM DECREASED GLUCOSE; Start 01/19/17 at 09:00 Glucose (Glutose) 15 gm Q15M PRN BUCCAL DECREASED GLUCOSE; Start 01/19/17 at 09: 00 IV Flush (NS 10 ml) 10 ml PRN PRN IV FLUSH LINE; Start 01/19/17 at 12:00 Diphenhydramine HCl (Benadryl Liquid Cup) 25 mg QHS PRN NGT ITCHING; Start 01/19 at 21:00 Hydralazine HCl (Apresoline) 25 mg Q4H PRN NGT hypertension Last administered on 01/25/17 12:17; Admin Dose 25 MG; Start 01/19/17 at 20:30 Acetaminophen/ Hydrocodone Bitart ([place] (5/325)) 1 tab Q6H PRN NGT MODERATE PAIN LEVEL 4-6; Start 01/20/17 at 02:30 Loratadine (Claritin) 10 mg DAILY NGT Last administered on 01/25/17 08:58; Admin Dose 10 MG; Start 01/20/17 at 09:00 Magnesium Hydroxide (Milk Of Mag) 30 ml DAILY PRN NGT CONSTIPATION; Start at 20:30 Acetaminophen (Tylenol Liquid) 1,000 mg Q4H PRN NGT PAIN AND OR ELEVATED TEMP; Start 01/19/17 at 20:30; Status Future Hold Docusate Sodium (Colace Liquid Cup) 100 mg TID NGT Last administered on 12:53; Admin Dose 100 MG; Start 01/19/17 at 21:00 Lorazepam 2 mg 2 mg Q6H PRN IV before LP and MRI Last administered on 01/23/17 11:28; Admin Dose 2 MG; Start 01/20/17 at 00:00 Fentanyl (Sublimaze) 100 ml @ 2.5 mls/hr TITRATE IV Last administered on 04:10; Admin Dose 2.5 MLS/HR; Start 01/20/17 at 10:00 Lansoprazole 30 mg 30 mg DAILY@06 NGT Last administered on 01/25/17 05:07; Admin Dose 30 MG; Start 01/21/17 at 06:00 Norepinephrine 16 mg/Dextrose 500 ml @ 1.87 mls/hr TITRATE IV ; Start 01/20/17 at 17:30 Midazolam HCl (Versed) 50 ml @ 1 mls/hr TITRATE IV Last administered on 04:10; Admin Dose 2 MLS/HR; Start 01/23/17 at 09:30 Diphenhydramine HCl 50 mg 50 mg DAILY@1930 IV Last administered on 01/24/17 20 :00; Admin Dose 50 MG; Start 01/23/17 at 19:30; Stop 01/26/17 at 19:31 Acetaminophen 100 ml @ 400 mls/hr DAILY@1930 IVPB Last administered on 20:03; Admin Dose 400 MLS/HR; Start 01/23/17 at 19:30; Stop 01/26/17 at 19: 44 Immune Globulin/ Sterile Water (Carimune Nf/ Water Sterile For Inj) 700 ml @ 70 mls/hr DAILY@20 IV Last administered on 01/24/17t 20:28; Admin Dose 70 MLS/ HR; Start 01/23/17 at 20:00; Stop 01/27/17 at 05:59 Heparin Sodium (Porcine) (Heparin (5000 Units/0.5 ml)) 5,000 unit BID SC Last administered on 01/25/17 09:08; Admin Dose 5,000 UNIT; Start 01/24/17 at 21:00 Hydralazine HCl (Apresoline) 25 mg TID NGT ; Start 01/25/17 at 21:00 Metoprolol Tartrate (Lopressor) 50 mg BID NGT ; Start 01/25/17 at 21:00 Insulin Glargine (Lantus) 10 unit DAILY@08 SC ; Start 01/25/17 at 14:30 Assessment/Plan Chief Complaint/Hosp Course IMPRESSION: A 66-year-old gentleman who presented on 01-17-17 with several days of fevers and generalized weakness, dizziness, a few episodes of nausea, transient shoulder pain. Patient is immunosuppressed and in the hospital,he developed mental status changes, became confused, and complained of diplopia; has also developed noticeable nuchal rigidity, stridor, has to be intubated. Continues to be very encephalopathic, had transient tremor and myoclonus. Symptoms likely reflect encephalitis. HSV PCR was negative, off acyclovir, bacterial and fungal work up negative. West Nile serology was sent out, negative per lab I called earlier today. EEG c/w encephalopathy. Continue current treatment. I'll probably repeat LP, first LP specimen was "lost ", misplaced in the lab x 4-5 hours Problems: LALO MONACO MD Jan 25, 2017 18:04
--- NOTE | 2017-01-25 19:37 | PN ---
DATE: 01/25/2017 SUBJECTIVE DATA: No acute changes overnight. Patient is intubated, sedated, had been afebrile overnight. VITAL SIGNS: Temperature 98.4, pulse 82, respirations 19, blood pressure 186/99, saturation 100 on 40 FiO2. LABORATORY AND DIAGNOSTIC DATA: WBC 6.9, H and H 9.4 and 27.1, platelets 155,000, neutrophils 57.1, no bands. BUN 56, creatinine 2.80. West Nile virus CSF still pending. Procalcitonin level pending. DIAGNOSTICS: Patient had WBC-labeled nuclear scan that revealed no definite abnormal focal areas of increased activity. INDWELLINGS: Endotracheal tube, NG tube, [place], PICC line placed on January 19, 2017. OBJECTIVE DATA: GENERAL: This is a well-developed, well-nourished, elderly man, who is in no distress. HEENT: Head atraumatic, normocephalic. Sclerae anicteric. Buccal mucosa dry. NECK: Supple. CHEST: Rise symmetrical. Breath sounds diminished at the bases. HEART: S1, S2. ABDOMEN: Soft, bowel sounds present. EXTREMITIES: Without cyanosis. ASSESSMENT: 1. Status post fevers, with acute encephalopathy on admission. So far, septic workup had been negative. Patient had a lumbar puncture done, that revealed no evidence of bacterial meningitis. HSV by PCR negative. Guerda ink was negative. WBC-labeled nuclear scan negative. CT of the abdomen and pelvis on admission negative. 2. Acute respiratory failure secondary to airway protection. 3. Abbi's granulomatosis, resulting in immunocompromised state. Patient is on Rituxan. 4. [id number] kidney disease. 5. Questionable bilateral mastoiditis. PLAN: Patient remains stable. He is being seen by multiple consultants. Pending CSF West Nile virus. He had been on antibiotics since admission. All cultures have been negative. We are going to discontinue antibiotics and observe him. If he spikes fever,we will re-culture him. Also, given negative cultures and diagnostics in regards to acute infectious process, recommend Oncology evaluation if patient continues to spike fevers. Dictated By: Giancarlo Hodges NP /[email or web address] /Document#: [id number]
[2017-01-25] MEDS: ACETAMINOPHEN 1000MG/100ML IV 100 ML IVPB SCH (19:45)
[2017-01-25] MEDS: DIPHENHYDRAMINE 50 MG INJ IV SCH (19:45)
[2017-01-25] MEDS: WATER STERILE FOR IV SCH (20:16)
[2017-01-25] MEDS: IMMUNE GLOBULIN IV SCH (20:16)
[2017-01-25] MEDS: METOPROLOL 50 MG TAB NGT SCH (22:03)
--- NOTE | 2017-01-25 22:21 | PN ---
DATE: 01/25/2017 SUBJECTIVE DATA: Patient seen and now off the Versed, only on fentanyl. Patient he remains encephalopathic. Case discussed with ID and all antibiotics were discontinued. His WBC scan was negative. The patient's white count is normal as well. His CSF serologies are still pending. The patient unfortunately remains encephalopathic. Blood pressure is on the high side as well and p.r.n. IV meds are being given. PHYSICAL EXAM: VITAL SIGNS: Temperature 99, otherwise this is T-max, pulse 72, respiration 17, blood pressure 172/82, saturation 100 percent, currently on SIMV mode. No ABG today. GENERAL: Patient is encephalopathic. EYES: The pupils are overall 3 mm reactive bilaterally. HEART: S1, S2. Regular rate. LUNGS: Decreased bilaterally. Otherwise clear. ABDOMEN: Soft, nontender. EXTREMITIES: Trace edema throughout. Some movement of the upper extremity. Overall, patient remains encephalopathic, nonresponsive to commands. LABS: White count is normal at 6.9, hemoglobin 9.4, hematocrit 27, platelet count 155, neutrophil count 57 percent, lymphocytes 10 percent, monocytes 16 percent. Chemistry, sodium is 142, potassium 3.8, chloride 109, bicarb 28, BUN 56, creatinine 2.8, slightly high. Glucose 196. Glucose levels are running high at 230 and 235 the last 2 readings. The spinal fluid serologies including West Nile is spending. Coccidioides is pending. Other tests all negative including HSV 1 and 2 PCR, Neisseria meningitidis etc, see labs. The VDRL was negative as well. RADIOLOGY: No radiographic imaging today. MEDS: 1. Lantus 10 units daily. 2. Heparin 5000 units subcutaneous twice a day. 3. IVIG IV daily. 4. Benadryl 50 IV daily. 5. Tylenol as needed. 6. Midazolam as directed, currently off of it. 7. 30 mg daily. 8. Levophed as needed. 9. Fentanyl drip as directed. 10. Claritin 10 mg daily. 11. [place] as needed. 12. Accu-Chek morning and bedtime 13. Ativan as needed. 14. Benadryl as needed. 15. Lopressor 25 twice a day. 16. Colace 100 twice a day. 17. Milk of magnesia as needed. 18. Hydralazine as needed. 19. NovoLog as needed. 20. Hypoglycemia protocol as needed. 21. Labetalol as needed. 22. Hydralazine as needed. 23. Nicotine patch 14 mg daily. 24. DuoNeb as needed. 25. Atrovent s needed. 26. Uloric 40 mg daily. 27. Benadryl as needed. 28. Cardizem 240 daily. 29. Morphine as needed. 30. Colace as needed. ASSESSMENT AND PLAN: This is a very unfortunate 66-year-old, male, with history of Abbi's granulomatosis, chronic kidney disease (CKD), nicotine dependency, hypertension who initially presented with 1 week fever and chills and generalized weakness with decreased by mouth intake. Unfortunately hospital course the patient get progressively more encephalopathic, requiring mechanical ventilation to protect his airway. 1. Respiratory. Continue ventilatory support. Tolerating SIMV mode well. Not a candidate for further weaning or extubation secondary to his encephalopathy as he may not be able to protect his airway. Appreciate Pulmonary input. 2. Cardiovascular. Patient is hypertensive. Consider titrating his regular meds up especially if hypertensive. Currently on Cardizem and consider starting him on hydralazine routine. Remains also Lopressor 25 b.i.d. 3. Infectious Disease. Currently there is no evidence of infectious process. WBC is normal. Antibiotics was discontinued. Continue to follow and monitor for fevers. 4. Abbi's granulomatosis. Rheumatology continues to follow. No further recommendations. 5. Nutrition. Continue OG tube feeding, tolerating it well. 6. Hyperglycemia. I increased the dose of Lantus to 10 units. May increase it even further as likely hyperglycemia is due to the above stress. 7. Neurologically. Again patient with encephalitis. The pathology still unclear. Follow up and West Nile serology. 8. Renal insufficiency. Slightly worse observe. Lasix times 1 was given. We will follow closely. Dictated By: Guwrinder Triplett MD /[email or web address] /Document#: [id number]
[2017-01-25] MEDS ORDERED: MIRTAZAPINE 15 MG TAB PO ONE (23:00)
[2017-01-26] VITALS (73 sets, daily range): BP systolic 114–217; BP diastolic 67–113; PULSE 68–93; RESP 11–23
[2017-01-26] MEDS: INSULIN ASPART [NOVOLOG] 3 ML PEN SC SCH ×6 (01:32→20:34)
[2017-01-26] MEDS: ACCU-CHEK XX SCH (01:48)
[2017-01-26] MEDS: LANSOPRAZOLE 30 MG CAP NGT SCH (05:52)
[2017-01-26] MEDS: LABETALOL HCL 20MG INJ IV PRN ×3 (06:17→18:22)
[2017-01-26 06:19] LABS: BASOPHIL # 0.1 10^3/ul (0.0-0.1); BASOPHILS % 0.7 % (0.0-2.0); EOSINOPHILS # 0.6 10^3/ul (0.0-0.5); EOSINOPHILS % 8.1 % (0.0-7.0); HEMATOCRIT 27.5 % (42.0-52.0); HEMOGLOBIN 9.6 g/dl (14.0-18.0); LYMPHOCYTES # 0.7 10^3/ul (0.8-2.9); LYMPHOCYTES % 9.6 % (15.0-51.0); MEAN CORPUSCULAR HGB CONC 34.9 g/dl (32.0-37.0); MEAN CORPUSCULAR VOLUME 77.2 fl (82.0-101.0); MEAN PLATELET VOLUME 10.8 fl (7.4-10.4); MONOCYTE # 1.5 10^3/ul (0.3-0.9); MONOCYTES % 19.9 % (0.0-11.0); NEUTROPHILS % 56.8 % (39.0-77.0); NUCLEATED RED BLOOD CELLS% 0.4 /100WBC (0.0-0.0); PLATELET COUNT 163 10^3/UL (140-415); RED BLOOD COUNT 3.56 10^6/ul (4.70-6.10); RED CELL DISTRIBUTION WIDTH 17.7 % (11.5-14.5); WHITE BLOOD COUNT 7.5 10^3/ul (4.8-10.8)
[2017-01-26 06:44] LABS: ALBUMIN 2.7 g/dl (3.3-4.9); BILIRUBIN,INDIRECT 0.1 mg/dl (0-1.1); BILIRUBIN,TOTAL 0.1 mg/dl (0.2-1.3); TOTAL PROTEIN 6.8 g/dl (6.1-8.1)
[2017-01-26 06:48] LABS: CALCIUM 9.2 mg/dl (8.4-10.2); CREATININE 2.78 mg/dl (0.61-1.24); MAGNESIUM 2.4 mg/dl (1.7-2.5); PHOSPHORUS 3.8 mg/dl (2.5-4.9); POTASSIUM 4.1 mmol/L (3.5-5.1)
[2017-01-26] MEDS ORDERED: INSULIN GLARGINE [LANtus] 3 ML PEN SC SCH (08:00)
[2017-01-26] MEDS: INSULIN GLARGINE [LANtus] 3 ML PEN SC SCH (08:01)
[2017-01-26] MEDS: LORATADINE 10 MG TAB NGT SCH (08:44)
[2017-01-26] MEDS: NICOTINE (14 MG/24 HR) PATCH TRANSDERM SCH (08:44)
[2017-01-26] MEDS: FEBUXOSTAT 40 MG TABLET PO SCH (08:45)
[2017-01-26] MEDS: DOCUSATE SODIUM 10 MG/ML (10ML CUP) NGT SCH ×3 (08:46→20:35)
[2017-01-26] MEDS: DILTIAZEM (CD) 240 MG CAP PO SCH (08:46)
[2017-01-26] MEDS: METOPROLOL 50 MG TAB NGT SCH (08:46)
[2017-01-26] MEDS: HEPARIN 5,000 UNIT/0.5 ML VIAL SC SCH ×2 (08:49→20:34)
--- NOTE | 2017-01-26 09:39 | PN ---
DATE: 01/26/2017 SUBJECTIVE DATA: The patient remains critical on ventilator support. The patient is starting to show some more movements, but remains altered. No other events noted. OBJECTIVE DATA: VITAL SIGNS: Blood pressure is 188/91, respirations 18, pulse 73, temperature 98.4. HEENT: Head is normocephalic. NECK: Supple. HEART: Regular rate. LUNGS: Lungs show diminished breath sounds at the base. ABDOMEN: Soft, nontender to palpation. No rebound or guarding. EXTREMITIES: Negative for clubbing, cyanosis. No trace edema. DERMATOLOGIC: No rashes. MUSCULOSKELETAL: No joint effusion. NEUROLOGIC: Unchanged exam. MEDICATIONS: Reviewed. LABORATORY AND DIAGNOSTIC DATA: Sodium 140, potassium 4.1, chloride 106, creatinine 2.78. White count 7.5, hemoglobin 9.6, hematocrit 27.5, platelet count 163. I's and O's reviewed. ASSESSMENT AND PLAN: 1. Nonoliguric acute kidney injury on top of chronic kidney disease with previous baseline creatinine 1.7 and 2.0 mg/dL, respectively. Etiology of acute kidney injury is multifactorial secondary to sepsis, possible acute tubular necrosis. No evidence of acute active glomerulonephritis at this time. The patient's renal function appears to have stabilized in the last 48 hours, possibly entering maintenance phase of acute tubular necrosis. At this point, continue current treatment. Supportive care. Renally dose all meds. 2. Hypokalemia, improved. 3. Volume overload. Continue giving intermittent diuretic therapy. 4. Anemia. Monitor hemoglobin and hematocrit levels. 5. Mineral bone disorder. Monitor calcium and phosphorus levels. 6. Severe sepsis. Etiology multifactorial. Possible viral encephalitis, pneumonia. Continue current antimicrobial antibiotic therapy. Continue IVIG. 7. Ventilatory-dependent respiratory failure. Vent settings. ABGs reviewed. 8. History of Abbi's granulomatosis. The patient is status post Rituxan. Continue to monitor. Follow up with Rheumatology. Acute encephalopathy, etiology multifactorial, possible encephalitis, continue IVIG. Follow up with 9. Neurology. 10. Gastrointestinal and deep venous thrombosis prophylaxis. Continue proton pump inhibitor and sequential leg squeezes. Dictated By: Jim Sierra DO /[email or web address]/ /Document#: [id number]
--- NOTE | 2017-01-26 10:47 | PN ---
DATE: 01/26/2017 SUBJECTIVE DATA: The patient remains encephalopathic currently on fentanyl drip. Currently on SIMV mode, tolerating it well. The case was discussed ID and neurologist regarding patient's neurological condition. PHYSICAL EXAM: The patient is afebrile. OBJECTIVE DATA: VITAL SIGNS: Temperature 98.4, pulse 77, respirations 18, blood pressure 177/86. Saturation 100 percent on mechanical ventilator, SIMV mode, FiO2 of 35 percent. No ABG today. GENERAL: The patient is in no distress, moving his upper extremity, more the left upper extremity. Some movement of the left lower extremity. The patient remains encephalopathic. Does not follow commands. HEART: S1, S2. Regular rate. LUNGS: Decreased bilaterally. ABDOMEN: Abdomen is soft, nontender. EXTREMITIES: No clubbing, cyanosis, or edema. LABORATORY AND DIAGNOSTIC DATA: White count 7.5, hemoglobin 9.6, hematocrit 28, platelet count 163, neutrophils 57 percent, lymphocytes 10 percent, monocytes 20 percent. Chemistry, sodium is 140, potassium 4.1, chloride 106, bicarb 29, BUN 67, creatinine 2.7, and glucose 186. AST 62, ALT 92, alkaline phosphatase 150, albumin 2.7. Serology still nondiagnostic. West Nile still pending. VDRL negative. Complement fixation CSF negative influenza A and B, RSV or adenovirus. MEDICATIONS: 1. Include Remeron 15 mg q.h.s.. 2. Hydralazine 25 t.i.d. 3. Lopressor 50 mg, b.i.d. 4. Lopressor 50 b.i.d. 5. Lantus 10 units daily. 6. Heparin 5000 units b.i.d. 7. IVIG daily. Last dose tomorrow. 8. Benadryl p.r.n. 9. Tylenol p.r.n. 10. Metaxalone as directed. 11. Prevacid 10 mg daily. 12. Fentanyl titrated as directed. 13. Claritin 10 mg daily. 14. [place] p.r.n. 15. Accu-Chek q.a.c. and at bedtime. 16. Ativan p.r.n. 17. Benadryl p.r.n. 18. Colace 100 t.i.d. 19. Hydralazine p.r.n. 20. Milk of Magnesia p.r.n. 21. Hypoglycemia protocol as directed. 22. Labetalol p.r.n. 23. Nicotine patch 14 mg daily, 24. Duoneb p.r.n. 25. Atrovent p.r.n. 26. Uloric 40 mg daily. 27. Cardizem CD 240 daily. 28. Zofran p.r.n. 29. Morphine p.r.n. 30. Colace p.r.n. ASSESSMENT AND PLAN: This is a 66-year-old, male, with history of Abbi's granulomatosis, chronic kidney disease, nicotine dependency, hypertension, who presented with initially 1 week of fever, chills, generalized weakness and decreased oral intake who progressively became more encephalopathic, requiring mechanical ventilation to protect his airway. 1. Respiratory. Continue SIMV. Remains encephalopathic. Not a candidate for weaning secondary to encephalopathy. 2. Cardiovascular. Remains hypertensive. I am titrating his medication up. Currently on beta blockers, Cardizem, and hydralazine. Continue p.r.n. IV meds as well. Continue heparin for deep venous thrombosis prophylaxis. 3. Infectious disease. 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 I will add the PCR SO virus to the spinal fluid. Some experimental treatment includes mirtazapine, which I started yesterday night. This was discussed with ID and neurology regarding the differential diagnosis. We will continue to monitor CSF serologies in congruence with provided supportive care. 4. Abbi's granulomatosis. Rheumatology is following. 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 5. Hyperglycemia. Accu-Cheks are as follows: 189, 189, and 182. Continue current dose of Lantus. Titrate up as needed. 6. Continue feeding via orogastric tube. 7. Renal insufficiency remains stable. Observe. I appreciate Neurology input. 8. Anemia. Hemoglobin and hematocrit remains stable. Likely anemia of chronic disease secondary chronic kidney disease. No need for transfusion. 9. Continue Protonix for gastrointestinal prophylaxis. 10. Again, continue supportive care. 11. Plan for possible repeat lumbar puncture was discussed with Neurology. We will follow. Dictated By: Gurwinder Triplett MD /[email or web address] /Document#: [id number]
[2017-01-26] MEDS: hydrALAzine 20 MG INJ IV PRN (11:01)
--- NOTE | 2017-01-26 11:09 | CONS ---
Date/Time of Note Date/Time of Note DATE: 01/26/17 TIME: 11:04 Assessment/Plan Assessment/Plan Additional Assessment/Plan Ventilator setting; SIMV of 10, pressure support 14, tidal volume 500, PEEP of 5 , 35% FiO2. Patient currently on fentanyl drip at 30 mics per hour. Assessment and recommendations; 1. Patient admitted with respiratory failure with profound mental unresponsiveness. Etiology is unclear, possibly anoxic brain damage. 2. Status post lumbar puncture for CSF draw with negative studies so far. With negative MRI of the brain as well. 3. Chronic renal insufficiency. 4. History of Abbi's granulomatosis. 5. History of lung cancer with clear chest x-ray. Hold fentanyl drip. Current supportive care. Weaning from ventilator with depend upon adequate mental status recovery. 35 minutes of critical care time was spent evaluating the patient. Consultation Date/Type/Reason Admit Date/Time Jan 17, 2017 at 17:33 Initial Consult Date Type of Consultation: Pulmonary/critical care 24 HR Interval Summary Free Text/Dictation Patient condition remains critical. Has been unable to be weaned off from mechanical ventilation due to extremely poor mental status. Patient however has remained hemodynamically stable. No untoward events reported. General examination; elderly male, orally intubated, sedated, unresponsive. Exam/Review of Systems Vital Signs Vitals Vital Signs Date Time Temp Pulse Resp B/P Pulse Ox O2 Delivery O2 Flow Rate FiO2 01/26/17 08:00 72 01/26/17 08:00 98.4 18 177/86 100 Mechanical Ventilator 01/26/17 08:00 35 Intake and Output 01/25/17 01/25/17 01/26/17 15:00 23:00 07:00 Intake Total 745 ml 809 ml 1039 ml Output Total 1025 ml 615 ml 552 ml Balance -280 ml 194 ml 487 ml Exam HEENT exam; supple neck, no JVD. No lymphadenopathy. Midline trachea. No thyromegaly. Orally intubated. Patient has fair dentition. Pupils are equal and midsize and reactive to light bilaterally. No neck masses. Chest examined; clear to auscultation. S1-S2 audible, no murmurs. Regular rhythm. Abdomen exam; soft, no organomegaly. Bowel sounds audible. Nondistended. Extremity exam; no peripheral edema. Pulses 1+ bilaterally. [employer] WORK[employer] exam; patient currently is sedated and unresponsive. Results Result Diagram: 01/26/17 0555 01/26/17 0555 Results 24 hrs Laboratory Tests Test 01/25/17 12:43 01/25/17 17:11 01/25/17 22:05 01/26/17 01:25 Bedside Glucose 230 H 182 182 189 Test 01/26/17 05:51 01/26/17 05:55 01/26/17 07:31 01/26/17 07:36 Bedside Glucose 189 White Blood Count 7.5 Red Blood Count 3.56 L Hemoglobin 9.6 L Hematocrit 27.5 L Mean Corpuscular Volume 77.2 L Mean Corpuscular Hemoglobin 27.0 L Mean Corpuscular Hemoglobin Concent 34.9 Red Cell Distribution Width 17.7 H Platelet Count 163 Mean Platelet Volume 10.8 H Neutrophils % 56.8 Lymphocytes % 9.6 L Monocytes % 19.9 H Eosinophils % 8.1 H Basophils % 0.7 Nucleated Red Blood Cells % 0.4 H Neutrophils # (Manual) 4.3 Lymphocytes # 0.7 L Monocytes # 1.5 H Eosinophils # 0.6 H Basophils # 0.1 Nucleated Red Blood Cells # 0.0 Sodium Level 140 Potassium Level 4.1 Chloride Level 106 Carbon Dioxide Level 29 Anion Gap 9 Blood Urea Nitrogen 67 H Creatinine 2.78 H Glucose Level 186 Calcium Level 9.2 Phosphorus Level 3.8 Magnesium Level 2.4 Total Bilirubin 0.1 L Direct Bilirubin 0.00 Indirect Bilirubin 0.1 Aspartate Amino Transf (AST/SGOT) 52 H Alanine Aminotransferase (ALT/SGPT) 92 H Alkaline Phosphatase 150 H Total Protein 6.8 Albumin 2.7 L Lab Scanned Report REFERENCE LAB REFERENCE LAB Test 01/26/17 09:13 Bedside Glucose 160 Medications Medications Current Medications Ondansetron HCl (Zofran Inj) 4 mg Q6H PRN IV NAUSEA AND/OR VOMITING; Start 01/17 at 14:30 Morphine Sulfate (morphine) 2 mg Q4H PRN IV SEVERE PAIN LEVEL 7-10; Start at 14:30 Docusate Sodium (Colace) 100 mg Q12H PRN PO CONSTIPATION; Start 01/17/17 at 14: 30 Febuxostat (Uloric) 40 mg DAILY PO Last administered on 01/26/17t 08:45; Admin Dose 40 MG; Start 01/18/17 at 09:00 Diphenhydramine HCl (Benadryl) 25 mg Q4H PRN IV CHILLS; Start 01/17/17 at 18:30 Diltiazem HCl (Cardizem Cd) 240 mg DAILY PO Last administered on 01/26/17 08: 46; Admin Dose 240 MG; Start 01/17/17 at 18:30 Nicotine 1 patch 1 patch DAILY TRANSDERM Last administered on 01/26/17 08:44; Admin Dose 1 PATCH; Start 01/18/17 at 10:30 Acetaminophen (Ofirmev 1000mg/ 100ml Iv) 100 ml @ 400 mls/hr Q4 PRN IVPB FEVER GREATER THAN 100.6 Last administered on 01/23/17 14:09; Admin Dose 400 MLS /HR; Start 01/19/17 at 00:30 Hydralazine HCl (Apresoline) 10 mg Q4H PRN IV hypertension Last administered on 01/26/17 11:01; Admin Dose 10 MG; Start 01/19/17 at 01:00 Labetalol HCl (Labetalol) 20 mg Q3 PRN IV ELEVATED BLOOD PRESSURE Last administered on 01/26/17 06:17; Admin Dose 20 MG; Start 01/19/17 at 02:30 Labetalol HCl (Labetalol) 10 mg Q3 PRN IV ELEVATED BLOOD PRESSURE Last administered on 01/25/17 13:37; Admin Dose 10 MG; Start 01/19/17 at 02:30 Diagnostic Test (Pha) (Accu-Chek) 1 ea 02 XX Last administered on 01/24/17 01: 32; Admin Dose 1 EA; Start 01/20/17 at 02:00 Insulin Aspart (Novolog Insulin Pen) NOVOLOG *MILD* ALGORI... Q4 SC Last administered on 01/26/17 09:16; Admin Dose 1 UNIT; Start 01/19/17 at 09:00 Miscellaneous Information 1 ea NOTE XX ; Start 01/19/17 at 09:00 Glucose (Glutose) 15 gm Q15M PRN PO DECREASED GLUCOSE; Start 01/19/17 at 09:00 Glucose (Glutose) 22.5 gm Q15M PRN PO DECREASED GLUCOSE; Start 01/19/17 at 09:00 Dextrose (D50w Syringe) 25 ml Q15M PRN IV DECREASED GLUCOSE; Start 01/19/17 at 09:00 Dextrose (D50w Syringe) 50 ml Q15M PRN IV DECREASED GLUCOSE; Start 01/19/17 at 09:00 Glucagon (Glucagen) 1 mg Q15M PRN IM DECREASED GLUCOSE; Start 01/19/17 at 09:00 Glucose (Glutose) 15 gm Q15M PRN BUCCAL DECREASED GLUCOSE; Start 01/19/17 at 09: 00 IV Flush (NS 10 ml) 10 ml PRN PRN IV FLUSH LINE; Start 01/19/17 at 12:00 Diphenhydramine HCl (Benadryl Liquid Cup) 25 mg QHS PRN NGT ITCHING; Start 01/19 at 21:00 Hydralazine HCl (Apresoline) 25 mg Q4H PRN NGT hypertension Last administered on 01/25/17 12:17; Admin Dose 25 MG; Start 01/19/17 at 20:30 Acetaminophen/ Hydrocodone Bitart ([place] (5/325)) 1 tab Q6H PRN NGT MODERATE PAIN LEVEL 4-6; Start 01/20/17 at 02:30 Loratadine (Claritin) 10 mg DAILY NGT Last administered on 01/26/17 08:44; Admin Dose 10 MG; Start 01/20/17 at 09:00 Magnesium Hydroxide (Milk Of Mag) 30 ml DAILY PRN NGT CONSTIPATION; Start at 20:30 Acetaminophen (Tylenol Liquid) 1,000 mg Q4H PRN NGT PAIN AND OR ELEVATED TEMP; Start 01/19/17 at 20:30; Status Future Hold Docusate Sodium (Colace Liquid Cup) 100 mg TID NGT Last administered on 08:46; Admin Dose 100 MG; Start 01/19/17 at 21:00 Lorazepam 2 mg 2 mg Q6H PRN IV before LP and MRI Last administered on 01/23/17 11:28; Admin Dose 2 MG; Start 01/20/17 at 00:00 Fentanyl (Sublimaze) 100 ml @ 2.5 mls/hr TITRATE IV Last administered on 04:10; Admin Dose 2.5 MLS/HR; Start 01/20/17 at 10:00 Lansoprazole 30 mg 30 mg DAILY@06 NGT Last administered on 01/26/17 05:52; Admin Dose 30 MG; Start 01/21/17 at 06:00 Norepinephrine 16 mg/Dextrose 500 ml @ 1.87 mls/hr TITRATE IV ; Start 01/20/17 at 17:30 Midazolam HCl (Versed) 50 ml @ 1 mls/hr TITRATE IV Last administered on 04:10; Admin Dose 2 MLS/HR; Start 01/23/17 at 09:30 Diphenhydramine HCl 50 mg 50 mg DAILY@1930 IV Last administered on 01/25/17 19 :45; Admin Dose 50 MG; Start 01/23/17 at 19:30; Stop 01/26/17 at 19:31 Acetaminophen 100 ml @ 400 mls/hr DAILY@1930 IVPB Last administered on 19:45; Admin Dose 400 MLS/HR; Start 01/23/17 at 19:30; Stop 01/26/17 at 19: 44 Immune Globulin/ Sterile Water (Carimune Nf/ Water Sterile For Inj) 700 ml @ 70 mls/hr DAILY@20 IV Last administered on 01/25/17 20:16; Admin Dose 70 MLS/ HR; Start 01/23/17 at 20:00; Stop 01/27/17 at 05:59 Heparin Sodium (Porcine) (Heparin (5000 Units/0.5 ml)) 5,000 unit BID SC Last administered on 01/26/17 08:49; Admin Dose 5,000 UNIT; Start 01/24/17 at 21:00 Hydralazine HCl (Apresoline) 25 mg TID NGT Last administered on 01/26/17 08:45 ; Admin Dose 25 MG; Start 01/25/17 at 21:00 Metoprolol Tartrate (Lopressor) 50 mg BID NGT Last administered on 01/26/17 08 :46; Admin Dose 50 MG; Start 01/25/17 at 21:00 Insulin Glargine (Lantus) 10 unit DAILY@08 SC Last administered on 01/26/17 08 :01; Admin Dose 10 UNIT; Start 01/25/17 at 14:30 Mirtazapine (Remeron) 15 mg HS NGT ; Start 9/12/17 at 21:00 RATNA MORENO Jan 26, 2017 11:09
--- NOTE | 2017-01-26 12:43 | PN ---
DATE: 01/22/2017 SUBJECTIVE DATA: The patient is seen. The patient has been having fever all night, T-max 101.5 at 4 a.m. Also, patient's urine output was marginal. Given a dose of 20 IV of Lasix with good response, as patient has been positive urine output on a daily basis. White count improved to 11,000. I appreciate Nephrology input and recommendations. Appreciate Neurology, Rheumatology and Pulmonology input as well. ID is following as well. The patient remains slightly sedated, on dexmedetomidine and fentanyl. Overall hemodynamically stable. OBJECTIVE DATA: VITAL SIGNS: Temperature 99.5, pulse 92, respirations 23, blood pressure is now in the 137/78, saturation 98 percent on 40 percent FiO2. ABG this morning shows a pH of 7.4, pCO2 33, PO2 of 71, saturation 94 percent, on the following setting: AC 20, tidal volume 500, PEEP of 5, FiO2 40 percent. GENERAL: The patient does not respond, does not follow all commands. CARDIOVASCULAR: S1 and S2. LUNGS: Decreased bilaterally, otherwise clear. ABDOMEN: Soft. Nontender. EXTREMITIES: No clubbing, cyanosis, or edema. Upper extremities, some clonus. He does respond to shadows while a few flashing sun into his head, as he is closing his eyes. LABS: White count is 11.3, hemoglobin 9.9, hematocrit 28, platelet count of 189, neutrophils 85 percent, lymphocytes 3 percent. Chemistry: Sodium 144, potassium 3.8, chloride 114, bicarb 23, BUN is 45, creatinine is 2.51 and glucose of 113. AST is high at 100, ALT is high at 146, this is new; ammonia 25, albumin 2.6. B12 was 776. PSA less than 0.1. Spinal fluid culture shows adenovirus negative, negative. Pending studies include West Nile virus, histoplasma, coccidioides, CMV. Final culture preliminarily pending. Gram stain, CSF preliminary. No organism seen. MEDICATIONS: Include: 1. Keppra 250 IV q.12. 2. Zosyn 3.375 IV q.8. 3. Dexmedetomidine drip. 4. Lantus 4 units daily. 5. Prevacid 30 mg daily. 6. Levophed as needed. 7. Fentanyl as directed. 8. Florinef, I believe, 25 mcg. 9. Claritin 20 mg daily. 10. [place] p.r.n. 11. Accu-Chek acute and at bedtime. 12. Ativan p.r.n. 13. Benadryl p.r.n. 14. Lopressor 25 b.i.d. 15. Colace 100 t.i.d. 16. Hydralazine p.r.n. 17. Milk of Magnesium p.r.n. 18. NovoLog per sliding scale. 19. Tylenol p.r.n. 20. Labetalol p.r.n. 21. Acyclovir IV, dose per pharmacy. 22. Albuterol, Atrovent as directed. 23. Uloric 40 mg daily. 24. Zofran p.r.n. 25. Morphine p.r.n. 26. Colace p.r.n. ASSESSMENT AND PLAN: This is a 66-year-old male, with history of Abbi's granulomatosis, chronic kidney disease, nicotine dependency, hypertension, who presented with 1 week of fever, chills, generalized weakness and decreased oral intake. Unfortunately, during hospital course, the patient neurologically declined, as patient developed encephalitis, now again with fevers. 1. Respiratory: Chest x-ray, repeat one done today shows stable left basilar atelectasis or infiltrate and small left pleural effusion. We will continue Zosyn. Continue supportive care. Continue the sedation as per wall covering installer. 2. Cardiovascular: Overall, his vitals are stable. Blood pressure in the 130s. Try to keep him more even, but a dose of Lasix x1 was given secondary to decreased urine output, responded very well. May restart deep venous thrombosis prophylaxis with heparin. 3. ID: Currently being treated for pneumonia and possible viral encephalitis. Patient is on Zosyn and acyclovir. White count has improved. We will follow. Now with low-grade fevers, which may be just related to his above encephalopathy. 4. Abbi's granulomatosis: Rheumatology is following. 5. Chronic kidney disease with acute exacerbation: Observe urine output, improved with Lasix. Appreciate Nephrology input. 6. Continue Prevacid for gastrointestinal prophylaxis. 7. Nutrition: Continue orogastric feeding. Dietitian to adjust. 8. Encephalopathy: Differential diagnosis includes viral, bacterial. Awaiting final serologies of various tests. Hopefully this is transient. We will continue monitor neuro status closely. The patient was placed on low-dose seizure medication. 9. Hyperglycemia: Glucose levels are better 177, 135, 145. Continue Lantus at 4 units. We will follow. Dictated By: Gurwinder Triplett MD /[email or web address] /Document#: [id number]
[2017-01-26] MEDS ORDERED: EPOETIN 10000 UNITS/1 ML INJ (ESRD) SC ONE (13:00)
[2017-01-26] MEDS: morphine 2 MG INJ IV PRN ×3 (15:02→16:16)
--- NOTE | 2017-01-26 18:33 | PN ---
DATE: 01/26/2017 SUBJECTIVE DATA: No events overnight. Patient remains noncommunicative, off sedation, comfortable on vent. He tries to open eye when called by name. He spontaneously moves his left upper extremity. Does not follow commands. He had been afebrile, temperature 98.4, pulse 75, respirations 17, blood pressure 171/92, saturation 100 on vent. LABORATORY AND DIAGNOSTIC DATA: WBC 7.5, H and H 9.6 and 27.5, platelets 163,000. BUN 67, creatinine 2.78. Microbiology cultures have been negative. West Nile virus per report was negative as well. INDWELLING: Endotracheal tube, NG tube, D[place] and PICC line placed on admission. PHYSICAL EXAMINATION: GENERAL: This is a well-developed, well-nourished elderly man who is nonverbal, noncommunicative and in no distress. HEENT: Head atraumatic, normocephalic. Sclerae anicteric. Buccal mucosa dry. NECK: Supple. CHEST: Rise symmetrical. Breath sounds diminished at the bases. HEART: S1, S2. ABDOMEN: Soft, bowel sounds present. EXTREMITIES: Without cyanosis. ASSESSMENT: 1. Status post sepsis with high fevers and acute encephalopathy on admission, so far septic workup had been negative. 2. Abbi's granulomatosis with immunocompromised state, patient had been on Rituxan. 3. Acute on chronic kidney disease. 4. Acute respiratory failure secondary to inability to protect airway. 5. Questionable bilateral mastoiditis status post antibiotics completed. 6. 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 7. History of early lung cancer. 8. History of gout. PLAN: Patient is hemodynamically stable, remains afebrile off antibiotics, all his cultures have been negative. Septic workup was negative. WBC labeled nuclear scan, CT abdomen, pelvis and chest were negative. 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 SO virus check was added to CSF fluid per primary team. Plan to repeat lumbar puncture again as per neurology note. MIKALA Galvez received the update on patient from [place]. Above was [place] [facility] [place] Dictated By: Giancarlo Hodges NP /eladio/g /Document#: [id number] MTDD
[2017-01-26] MEDS: ACETAMINOPHEN 1000MG/100ML IV 100 ML IVPB SCH (19:29)
[2017-01-26] MEDS: DIPHENHYDRAMINE 50 MG INJ IV SCH (19:29)
[2017-01-26] MEDS: MIRTAZAPINE 15 MG TAB NGT SCH (20:35)
[2017-01-26] MEDS: METOPROLOL 100 MG TAB NGT SCH (20:35)
[2017-01-26] MEDS: WATER STERILE FOR IV SCH (20:36)
[2017-01-26] MEDS: IMMUNE GLOBULIN IV SCH (20:36)
[2017-01-27] VITALS (80 sets, daily range): BP systolic 137–195; BP diastolic 79–109; PULSE 68–109; RESP 14–44
[2017-01-27] MEDS: hydrALAzine 20 MG INJ IV PRN ×4 (00:18→22:20)
[2017-01-27] MEDS: INSULIN ASPART [NOVOLOG] 3 ML PEN SC SCH ×6 (01:09→20:32)
[2017-01-27] MEDS: ACCU-CHEK XX SCH (02:01)
[2017-01-27] MEDS: LABETALOL HCL 20MG INJ IV PRN ×3 (02:04→11:12)
[2017-01-27] MEDS: FENTAnyl (DRIP) 1000 mcg/100mL 100 ML IV SCH (04:35)
[2017-01-27] MEDS: LANSOPRAZOLE 30 MG CAP NGT SCH (05:03)
[2017-01-27 05:13] LABS: ABNORMAL IP MESSAGE 1; BASOPHILS % 0.4 % (0.0-2.0); EOSINOPHILS # 0.4 10^3/ul (0.0-0.5); EOSINOPHILS % 3.6 % (0.0-7.0); HEMATOCRIT 29.4 % (42.0-52.0); HEMOGLOBIN 10.1 g/dl (14.0-18.0); LYMPHOCYTES # 0.7 10^3/ul (0.8-2.9); LYMPHOCYTES % 7.2 % (15.0-51.0); MEAN CORPUSCULAR HEMOGLOBIN 26.7 pg (29.0-33.0); MEAN CORPUSCULAR HGB CONC 34.4 g/dl (32.0-37.0); MEAN CORPUSCULAR VOLUME 77.8 fl (82.0-101.0); MEAN PLATELET VOLUME 10.7 fl (7.4-10.4); MONOCYTE # 1.8 10^3/ul (0.3-0.9); MONOCYTES % 17.9 % (0.0-11.0); NEUTROPHILS % 65.8 % (39.0-77.0); NUCLEATED RED BLOOD CELLS # 0.1 10^3/ul (0.0-0.0); NUCLEATED RED BLOOD CELLS% 0.6 /100WBC (0.0-0.0); PLATELET COUNT 185 10^3/UL (140-415); POSITIVE DIFF @See below; RED BLOOD COUNT 3.78 10^6/ul (4.70-6.10); RED CELL DISTRIBUTION WIDTH 18.4 % (11.5-14.5); WHITE BLOOD COUNT 10.2 10^3/ul (4.8-10.8)
[2017-01-27 05:33] LABS: CALCIUM 9.4 mg/dl (8.4-10.2); CREATININE 3.31 mg/dl (0.61-1.24); MAGNESIUM 2.7 mg/dl (1.7-2.5); PHOSPHORUS 4.2 mg/dl (2.5-4.9); POTASSIUM 4.2 mmol/L (3.5-5.1)
[2017-01-27 07:43] LABS: AADO2 Arterial 314.7 mmHg (7.0-24.0); Allen Test ACCEPTAB; Arterial Base Excess 2.2 mmol/L (-3.0-3); Arterial COHb 0.2 % (0.0-3.0); Arterial Fraction of Oxyhgb 98.2 % (93.0-99.0); Arterial HCO3 27.8 mmol/L (22.0-26.0); Arterial MetHb 0.4 % (0.0-1.5); Arterial Total Hemglobin 11.1 g/dl (12.0-18.0); Blood Gas PS 14; MODE VENT - SIMV
[2017-01-27] MEDS: INSULIN GLARGINE [LANtus] 3 ML PEN SC SCH (07:53)
[2017-01-27] MEDS: MIDAZOLAM (DRIP) 50 mg/50 mL 50 ML IV SCH (08:00)
--- NOTE | 2017-01-27 08:42 | RADRPT ---
PROCEDURE: XR Chest. CLINICAL INDICATION: Increased respiratory rate TECHNIQUE: A single AP view of the chest was obtained. COMPARISON: Chest x-ray dated 01/23/2017 FINDINGS: The endotracheal tube tip is approximately 7.4 cm above the carmen. The tip of the enteric tube ex tends below the left diaphragm. There is a left upper extremity PICC line with tip in the mid SVC. There is left basilar consolidation. No pleural effusion or pneumothorax is seen. The cardiomediast inal silhouette is within normal limits for size. Calcifications are seen within the aortic arch. T he osseous structures are unremarkable. IMPRESSION: 1. Left basilar atelectasis versus pneumonia, new finding when compared to the prior examination. 2. Aortic atherosclerosis. 3. Tubes and lines, as described above. RPTAT: HH .America Luther MD, MD Date Time Electronically viewed and signed by .America Luther MD, MD on 01/27/2017 08:42 .G/
--- NOTE | 2017-01-27 08:51 | PN ---
DATE: 01/27/2017 SUBJECTIVE DATA: The patient remains critically ill, on full ventilatory support. No other events noted. No hemoptysis, hematemesis, hematochezia. OBJECTIVE DATA: VITAL SIGNS: Blood pressure is 140/98, respirations 41, pulse 96, temperature 98.6. HEENT: Head is normocephalic. NECK: Supple. HEART: Regular rate. LUNGS: Showed diminished breath sounds at the base. ABDOMEN: Soft, nontender to palpation. No rebound or guarding. EXTREMITIES: Negative for clubbing, cyanosis. No edema. DERMATOLOGIC: Clean. No rashes. MUSCULOSKELETAL: No joint effusion. NEUROLOGIC: No change in exam. MEDICATIONS: Reviewed. LABORATORY AND DIAGNOSTIC DATA: Shows white count 10.3, hemoglobin 10.1, crit of 29.4, platelet count is 185. Sodium 140, potassium 4.2, BUN 83, creatinine 3.31. Magnesium 2.7. ASSESSMENT AND PLAN: 1. Nonoliguric acute kidney injury on top of chronic kidney disease with previous baseline creatinine 1.7 to 2.0 mg/dL. Etiology of current acute kidney injury secondary to acute tubular necrosis due to sepsis, ischemic hypoperfusion. Low suspicion for acute glomerulonephritis. The patient's renal function has declined in the last 24 hours. We will continue current treatment plan, supportive care, and renally dose all meds. The patient is making adequate urinary output. There is no immediate need for renal replacement therapy at this time. We will repeat a urinalysis and check urine electrolytes. 2. Volume overload. Continue to monitor. Give intermittent diuretic therapy. 3. Anemia. Continue to monitor H and H levels. The patient is status post Epogen. 4. Mineral bone disorder. Monitor calcium and phosphorus levels. 5. Severe sepsis. Continue current medical management. Continue antimicrobial therapy, antibiotic therapy. Follow up with Infectious Disease. 6. History of Abbi's granulomatosis. The patient is status post Rituxan. We will follow up with Rheumatology. 7. Gastrointestinal and deep venous thrombosis prophylaxis. Continue proton pump inhibitor and sequential leg squeezers. Dictated By: Jim Sierra DO /eladio/jose /Document#: [id number]
[2017-01-27] MEDS: DOCUSATE SODIUM 10 MG/ML (10ML CUP) NGT SCH ×3 (09:01→20:29)
[2017-01-27] MEDS: DILTIAZEM (CD) 240 MG CAP PO SCH (09:02)
[2017-01-27] MEDS: FEBUXOSTAT 40 MG TABLET PO SCH (09:02)
[2017-01-27] MEDS: METOPROLOL 100 MG TAB NGT SCH ×2 (09:03→20:29)
[2017-01-27] MEDS: LORATADINE 10 MG TAB NGT SCH (09:03)
[2017-01-27] MEDS: HEPARIN 5,000 UNIT/0.5 ML VIAL SC SCH ×2 (09:06→20:31)
[2017-01-27] MEDS: NICOTINE (14 MG/24 HR) PATCH TRANSDERM SCH (09:07)
--- NOTE | 2017-01-27 10:02 | CONS ---
Date/Time of Note Date/Time of Note DATE: 01/27/17 TIME: 10:00 Assessment/Plan Assessment/Plan Additional Assessment/Plan Chest x-ray was reviewed from today which is essentially unremarkable. Patient currently on assist control of 14, tidal volume 500, PEEP of 5, 50% FiO2. Assessment and recommendations; 1. Patient admitted with respiratory failure with acute encephalopathy. Neurological workup has been negative to date including MRI of the brain as well as lumbar puncture. 2. Chronic renal insufficiency. Continue to hold sedation. Weaning from ventilator with depend upon adequate mental status recovery. Continue current supportive care. Consultation Date/Type/Reason Admit Date/Time Jan 17, 2017 at 17:33 Type of Consultation: Pulmonary/critical care 24 HR Interval Summary Free Text/Dictation Patient condition remains critical. Remains profoundly unresponsive. Has been off sedation for more than 24 hours. Patient however has remained hemodynamically stable. General exam; elderly male, on ventilator via endotracheal tube. Unresponsive. Currently in no distress. Exam/Review of Systems Vital Signs Vitals Vital Signs Date Time Temp Pulse Resp B/P Pulse Ox O2 Delivery O2 Flow Rate FiO2 01/27/17 08:00 35 01/27/17 08:00 98.1 90 30 157/90 100 Mechanical Ventilator Intake and Output 01/26/17 01/26/17 01/27/17 15:00 23:00 07:00 Intake Total 507.35 ml 710 ml 993 ml Output Total 960 ml 622 ml 565 ml Balance -452.65 ml 88 ml 428 ml Exam HEENT exam; stiff neck. Orally intubated. Patient has fair dentition. Pupils are midsize and reactive to light. No neck masses. Chest exam; clear to auscultation. S1-S2 audible, no murmurs. Regular rhythm. Abdomen exam; soft, no organomegaly. Bowel sounds audible. Protuberant. Extremity exam; no peripheral edema. Pulses 1+ bilaterally. No clubbing. [employer] exam; patient remains unresponsive. Results Result Diagram: 01/27/17 0440 01/27/17 0454 Results 24 hrs Laboratory Tests Test 01/26/17 13:15 01/26/17 16:40 01/26/17 20:03 01/27/17 00:17 Bedside Glucose 252 H 216 213 165 Test 01/27/17 04:40 01/27/17 04:54 01/27/17 05:02 01/27/17 07:18 White Blood Count 10.2 # Red Blood Count 3.78 L Hemoglobin 10.1 L Hematocrit 29.4 L Mean Corpuscular Volume 77.8 L Mean Corpuscular Hemoglobin 26.7 L Mean Corpuscular Hemoglobin Concent 34.4 Red Cell Distribution Width 18.4 H Platelet Count 185 Mean Platelet Volume 10.7 H Neutrophils % 65.8 Lymphocytes % 7.2 L Monocytes % 17.9 H Eosinophils % 3.6 Basophils % 0.4 Nucleated Red Blood Cells % 0.6 H Neutrophils # (Manual) 6.7 Lymphocytes # 0.7 L Monocytes # 1.8 H Eosinophils # 0.4 Basophils # 0.0 Nucleated Red Blood Cells # 0.1 H Sodium Level 140 Potassium Level 4.2 Chloride Level 105 Carbon Dioxide Level 29 Anion Gap 10 Blood Urea Nitrogen 83 H Creatinine 3.31 H Glucose Level 192 Calcium Level 9.4 Phosphorus Level 4.2 Magnesium Level 2.7 H Bedside Glucose 193 Blood Gas Specimen Source Blood arterial Arterial Blood Date Drawn 01/27/2017 7:30:09 AM Arterial Blood pH (Temp corrected) 7.381 Arterial Blood pCO2 (Temp correct) 48.0 H Arterial Blood pO2 (Temp corrected) 350.3 H Arterial Blood HCO3 27.8 H Arterial Blood Base Excess 2.2 Arterial Blood Oxygen Saturation 98.8 H George Test ACCEPTAB Arterial Blood Gas Puncture Site Right Radial Arterial Blood Carboxyhemoglobin 0.2 Arterial Blood Methemoglobin 0.4 Blood Gas A-a O2 Differential 314.7 H Oxyhemoglobin Percent 98.2 Total Hemoglobin 11.1 L Blood Gas Temperature 37.0 Blood Gas Respiration Rate 10.0 Blood Gas Actual Respiration Rate 32 Blood Gas Modality VENT - SIMV FiO2 100.0 Blood Gas Tidal Volume 500.0 Blood Gas Low PEEP Setting 5.0 Blood Gas Pressure Support 14 Blood Gas Notified Whom JLD Blood Gas Notified Time 01/27/2017 7:42:55 AM Test 01/27/17 09:01 Bedside Glucose 216 Medications Medications Current Medications Ondansetron HCl (Zofran Inj) 4 mg Q6H PRN IV NAUSEA AND/OR VOMITING; Start 01/17 at 14:30 Morphine Sulfate (morphine) 2 mg Q4H PRN IV SEVERE PAIN LEVEL 7-10 Last administered on 01/26/17t 16:13; Admin Dose 2 MG; Start 01/17/17 at 14:30 Docusate Sodium (Colace) 100 mg Q12H PRN PO CONSTIPATION; Start 01/17/17 at 14: 30 Febuxostat (Uloric) 40 mg DAILY PO Last administered on 01/27/17 09:02; Admin Dose 40 MG; Start 01/18/17 at 09:00 Diphenhydramine HCl (Benadryl) 25 mg Q4H PRN IV CHILLS; Start 01/17/17 at 18:30 Diltiazem HCl (Cardizem Cd) 240 mg DAILY PO Last administered on 01/27/17 09: 02; Admin Dose 240 MG; Start 01/17/17 at 18:30 Nicotine 1 patch 1 patch DAILY TRANSDERM Last administered on 01/27/17 09:07; Admin Dose 1 PATCH; Start 01/18/17 at 10:30 Acetaminophen (Ofirmev 1000mg/ 100ml Iv) 100 ml @ 400 mls/hr Q4 PRN IVPB FEVER GREATER THAN 100.6 Last administered on 01/23/17 14:09; Admin Dose 400 MLS /HR; Start 01/19/17 at 00:30 Hydralazine HCl (Apresoline) 10 mg Q4H PRN IV hypertension Last administered on 01/27/17 05:11; Admin Dose 10 MG; Start 01/19/17 at 01:00 Labetalol HCl (Labetalol) 20 mg Q3 PRN IV ELEVATED BLOOD PRESSURE Last administered on 01/27/17 06:15; Admin Dose 20 MG; Start 01/19/17 at 02:30 Labetalol HCl (Labetalol) 10 mg Q3 PRN IV ELEVATED BLOOD PRESSURE Last administered on 01/27/17 02:04; Admin Dose 10 MG; Start 01/19/17 at 02:30 Diagnostic Test (Pha) (Accu-Chek) 1 ea 02 XX Last administered on 01/27/17 02: 01; Admin Dose 1 EA; Start 01/20/17 at 02:00 Insulin Aspart (Novolog Insulin Pen) NOVOLOG *MILD* ALGORI... Q4 SC Last administered on 01/27/17 09:05; Admin Dose 2 UNIT; Start 01/19/17 at 09:00 Miscellaneous Information 1 ea NOTE XX ; Start 01/19/17 at 09:00 Glucose (Glutose) 15 gm Q15M PRN PO DECREASED GLUCOSE; Start 01/19/17 at 09:00 Glucose (Glutose) 22.5 gm Q15M PRN PO DECREASED GLUCOSE; Start 01/19/17 at 09:00 Dextrose (D50w Syringe) 25 ml Q15M PRN IV DECREASED GLUCOSE; Start 01/19/17 at 09:00 Dextrose (D50w Syringe) 50 ml Q15M PRN IV DECREASED GLUCOSE; Start 01/19/17 at 09:00 Glucagon (Glucagen) 1 mg Q15M PRN IM DECREASED GLUCOSE; Start 01/19/17 at 09:00 Glucose (Glutose) 15 gm Q15M PRN BUCCAL DECREASED GLUCOSE; Start 01/19/17 at 09: 00 IV Flush (NS 10 ml) 10 ml PRN PRN IV FLUSH LINE; Start 01/19/17 at 12:00 Diphenhydramine HCl (Benadryl Liquid Cup) 25 mg QHS PRN NGT ITCHING; Start 01/19 at 21:00 Hydralazine HCl (Apresoline) 25 mg Q4H PRN NGT hypertension Last administered on 01/25/17 12:17; Admin Dose 25 MG; Start 01/19/17 at 20:30 Acetaminophen/ Hydrocodone Bitart ([place] (5/325)) 1 tab Q6H PRN NGT MODERATE PAIN LEVEL 4-6; Start 01/20/17 at 02:30 Loratadine (Claritin) 10 mg DAILY NGT Last administered on 01/27/17 09:03; Admin Dose 10 MG; Start 01/20/17 at 09:00 Magnesium Hydroxide (Milk Of Mag) 30 ml DAILY PRN NGT CONSTIPATION; Start at 20:30 Acetaminophen (Tylenol Liquid) 1,000 mg Q4H PRN NGT PAIN AND OR ELEVATED TEMP; Start 01/19/17 at 20:30; Status Future Hold Docusate Sodium (Colace Liquid Cup) 100 mg TID NGT Last administered on 09:01; Admin Dose 100 MG; Start 01/19/17 at 21:00 Lorazepam 2 mg 2 mg Q6H PRN IV before LP and MRI Last administered on 01/23/17 11:28; Admin Dose 2 MG; Start 01/20/17 at 00:00 Fentanyl (Sublimaze) 100 ml @ 2.5 mls/hr TITRATE IV Last administered on 04:35; Admin Dose 3 MLS/HR; Start 01/20/17 at 10:00 Lansoprazole 30 mg 30 mg DAILY@06 NGT Last administered on 01/27/17 05:03; Admin Dose 30 MG; Start 01/21/17 at 06:00 Norepinephrine 16 mg/Dextrose 500 ml @ 1.87 mls/hr TITRATE IV ; Start 01/20/17 at 17:30 Midazolam HCl (Versed) 50 ml @ 1 mls/hr TITRATE IV Last administered on 04:10; Admin Dose 2 MLS/HR; Start 01/23/17 at 09:30 Heparin Sodium (Porcine) (Heparin (5000 Units/0.5 ml)) 5,000 unit BID SC Last administered on 01/27/17 09:06; Admin Dose 5,000 UNIT; Start 01/24/17 at 21:00 Insulin Glargine (Lantus) 10 unit DAILY@08 SC Last administered on 01/27/17 07 :53; Admin Dose 10 UNIT; Start 01/25/17 at 14:30 Mirtazapine (Remeron) 15 mg HS NGT Last administered on 01/26/17 20:35; Admin Dose 15 MG; Start 01/26/17 at 21:00 Hydralazine HCl (Apresoline) 50 mg TID NGT Last administered on 01/27/17 09:03 ; Admin Dose 50 MG; Start 01/26/17 at 21:00 Metoprolol Tartrate (Lopressor) 100 mg BID NGT Last administered on 01/27/17 09:03; Admin Dose 100 MG; Start 01/26/17 at 21:00 RATNA MORENO Jan 27, 2017 10:02
[2017-01-27] MEDS ORDERED: SOD CHLORIDE 0.9% 1,000 ML IV SCH (12:00)
--- NOTE | 2017-01-27 13:23 | CONS ---
Date/Time of Note Date/Time of Note DATE: 01/27/17 TIME: 13:20 Consult Date/Type/Reason Admit Date/Time Jan 17, 2017 at 17:33 Type of Consultation: Rheum Subjective Patient is still on full ventilatory support and unresposive. Had to be re- started on Versed. To get an MRI and repeat LP today. Some abdominal distension. Objective Vital Signs Date Time Temp Pulse Resp B/P Pulse Ox O2 Delivery O2 Flow Rate FiO2 01/27/17 12:00 78 01/27/17 12:00 98.3 22 170/95 95 Mechanical Ventilator 01/27/17 08:30 50 Intake and Output 01/26/17 01/26/17 01/27/17 15:00 23:00 07:00 Intake Total 507.35 ml 710 ml 993 ml Output Total 960 ml 622 ml 565 ml Balance -452.65 ml 88 ml 428 ml Exam GENERAL: Intubated, sedated; SKIN: Multiple echymoses throughout- new echymoses on abd. HEENT: ET Tube in place NECK: No lymphadenopathy. HEART: S1, S2. Regular rate and rhythm. LUNGS: Clear bilaterally to auscultation. ABDOMEN: Distended. EXTREMITIES: No cyanosis, no edema. MUSCULOSKELETAL: No synovitis Results/Medications Result Diagram: 01/27/17 0440 01/27/17 0454 Results 24 hrs Laboratory Tests Test 01/26/17 16:40 01/26/17 20:03 01/27/17 00:17 01/27/17 04:40 Bedside Glucose 216 213 165 White Blood Count 10.2 # Red Blood Count 3.78 L Hemoglobin 10.1 L Hematocrit 29.4 L Mean Corpuscular Volume 77.8 L Mean Corpuscular Hemoglobin 26.7 L Mean Corpuscular Hemoglobin Concent 34.4 Red Cell Distribution Width 18.4 H Platelet Count 185 Mean Platelet Volume 10.7 H Neutrophils % 65.8 Lymphocytes % 7.2 L Monocytes % 17.9 H Eosinophils % 3.6 Basophils % 0.4 Nucleated Red Blood Cells % 0.6 H Neutrophils # (Manual) 6.7 Lymphocytes # 0.7 L Monocytes # 1.8 H Eosinophils # 0.4 Basophils # 0.0 Nucleated Red Blood Cells # 0.1 H Test 01/27/17 04:54 01/27/17 05:02 01/27/17 07:18 01/27/17 09:01 Sodium Level 140 Potassium Level 4.2 Chloride Level 105 Carbon Dioxide Level 29 Anion Gap 10 Blood Urea Nitrogen 83 H Creatinine 3.31 H Glucose Level 192 Calcium Level 9.4 Phosphorus Level 4.2 Magnesium Level 2.7 H Bedside Glucose 193 216 Blood Gas Specimen Source Blood arterial Arterial Blood Date Drawn 01/27/2017 7:30:09 AM Arterial Blood pH (Temp corrected) 7.381 Arterial Blood pCO2 (Temp correct) 48.0 H Arterial Blood pO2 (Temp corrected) 350.3 H Arterial Blood HCO3 27.8 H Arterial Blood Base Excess 2.2 Arterial Blood Oxygen Saturation 98.8 H George Test ACCEPTAB Arterial Blood Gas Puncture Site Right Radial Arterial Blood Carboxyhemoglobin 0.2 Arterial Blood Methemoglobin 0.4 Blood Gas A-a O2 Differential 314.7 H Oxyhemoglobin Percent 98.2 Total Hemoglobin 11.1 L Blood Gas Temperature 37.0 Blood Gas Respiration Rate 10.0 Blood Gas Actual Respiration Rate 32 Blood Gas Modality VENT - SIMV FiO2 100.0 Blood Gas Tidal Volume 500.0 Blood Gas Low PEEP Setting 5.0 Blood Gas Pressure Support 14 Blood Gas Notified Whom JLD Blood Gas Notified Time 01/27/2017 7:42:55 AM Test 01/27/17 12:39 Bedside Glucose 178 Medications Current Medications Ondansetron HCl (Zofran Inj) 4 mg Q6H PRN IV NAUSEA AND/OR VOMITING; Start 01/17 at 14:30 Morphine Sulfate (morphine) 2 mg Q4H PRN IV SEVERE PAIN LEVEL 7-10 Last administered on 01/26/17 16:13; Admin Dose 2 MG; Start 01/17/17 at 14:30 Docusate Sodium (Colace) 100 mg Q12H PRN PO CONSTIPATION; Start 01/17/17 at 14: 30 Febuxostat (Uloric) 40 mg DAILY PO Last administered on 01/27/17 09:02; Admin Dose 40 MG; Start 01/18/17 at 09:00 Diphenhydramine HCl (Benadryl) 25 mg Q4H PRN IV CHILLS; Start 01/17/17 at 18:30 Diltiazem HCl (Cardizem Cd) 240 mg DAILY PO Last administered on 01/27/17 09: 02; Admin Dose 240 MG; Start 01/17/17 at 18:30 Nicotine 1 patch 1 patch DAILY TRANSDERM Last administered on 01/27/17 09:07; Admin Dose 1 PATCH; Start 01/18/17 at 10:30 Acetaminophen (Ofirmev 1000mg/ 100ml Iv) 100 ml @ 400 mls/hr Q4 PRN IVPB FEVER GREATER THAN 100.6 Last administered on 01/23/17 14:09; Admin Dose 400 MLS /HR; Start 01/19/17 at 00:30 Hydralazine HCl (Apresoline) 10 mg Q4H PRN IV hypertension Last administered on 01/27/17 05:11; Admin Dose 10 MG; Start 01/19/17 at 01:00 Labetalol HCl (Labetalol) 20 mg Q3 PRN IV ELEVATED BLOOD PRESSURE Last administered on 01/27/17 11:12; Admin Dose 20 MG; Start 01/19/17 at 02:30 Labetalol HCl (Labetalol) 10 mg Q3 PRN IV ELEVATED BLOOD PRESSURE Last administered on 01/27/17 02:04; Admin Dose 10 MG; Start 01/19/17 at 02:30 Diagnostic Test (Pha) (Accu-Chek) 1 ea 02 XX Last administered on 01/27/17 02: 01; Admin Dose 1 EA; Start 01/20/17 at 02:00 Insulin Aspart (Novolog Insulin Pen) NOVOLOG *MILD* ALGORI... Q4 SC Last administered on 01/27/17 12:50; Admin Dose 1 UNIT; Start 01/19/17 at 09:00 Miscellaneous Information 1 ea NOTE XX ; Start 01/19/17 at 09:00 Glucose (Glutose) 15 gm Q15M PRN PO DECREASED GLUCOSE; Start 01/19/17 at 09:00 Glucose (Glutose) 22.5 gm Q15M PRN PO DECREASED GLUCOSE; Start 01/19/17 at 09:00 Dextrose (D50w Syringe) 25 ml Q15M PRN IV DECREASED GLUCOSE; Start 01/19/17 at 09:00 Dextrose (D50w Syringe) 50 ml Q15M PRN IV DECREASED GLUCOSE; Start 01/19/17 at 09:00 Glucagon (Glucagen) 1 mg Q15M PRN IM DECREASED GLUCOSE; Start 01/19/17 at 09:00 Glucose (Glutose) 15 gm Q15M PRN BUCCAL DECREASED GLUCOSE; Start 01/19/17 at 09: 00 IV Flush (NS 10 ml) 10 ml PRN PRN IV FLUSH LINE; Start 01/19/17 at 12:00 Diphenhydramine HCl (Benadryl Liquid Cup) 25 mg QHS PRN NGT ITCHING; Start 01/19 at 21:00 Hydralazine HCl (Apresoline) 25 mg Q4H PRN NGT hypertension Last administered on 01/25/17 12:17; Admin Dose 25 MG; Start 01/19/17 at 20:30 Acetaminophen/ Hydrocodone Bitart ([place] (5/325)) 1 tab Q6H PRN NGT MODERATE PAIN LEVEL 4-6; Start 01/20/17 at 02:30 Loratadine (Claritin) 10 mg DAILY NGT Last administered on 01/27/17 09:03; Admin Dose 10 MG; Start 01/20/17 at 09:00 Magnesium Hydroxide (Milk Of Mag) 30 ml DAILY PRN NGT CONSTIPATION; Start at 20:30 Acetaminophen (Tylenol Liquid) 1,000 mg Q4H PRN NGT PAIN AND OR ELEVATED TEMP; Start 01/19/17 at 20:30; Status Future Hold Docusate Sodium (Colace Liquid Cup) 100 mg TID NGT Last administered on 12:48; Admin Dose 100 MG; Start 01/19/17 at 21:00 Lorazepam 2 mg 2 mg Q6H PRN IV before LP and MRI Last administered on 01/23/17 11:28; Admin Dose 2 MG; Start 01/20/17 at 00:00 Fentanyl (Sublimaze) 100 ml @ 2.5 mls/hr TITRATE IV Last administered on 04:35; Admin Dose 3 MLS/HR; Start 01/20/17 at 10:00 Lansoprazole 30 mg 30 mg DAILY@06 NGT Last administered on 01/27/17 05:03; Admin Dose 30 MG; Start 01/21/17 at 06:00 Norepinephrine 16 mg/Dextrose 500 ml @ 1.87 mls/hr TITRATE IV ; Start 01/20/17 at 17:30 Midazolam HCl (Versed) 50 ml @ 1 mls/hr TITRATE IV Last administered on 08:00; Admin Dose 2 MLS/HR; Start 01/23/17 at 09:30 Heparin Sodium (Porcine) (Heparin (5000 Units/0.5 ml)) 5,000 unit BID SC Last administered on 01/27/17 09:06; Admin Dose 5,000 UNIT; Start 01/24/17 at 21:00 Insulin Glargine (Lantus) 10 unit DAILY@08 SC Last administered on 01/27/17 07 :53; Admin Dose 10 UNIT; Start 01/25/17 at 14:30 Mirtazapine (Remeron) 15 mg HS NGT Last administered on 01/26/17 20:35; Admin Dose 15 MG; Start 01/26/17 at 21:00 Hydralazine HCl (Apresoline) 50 mg TID NGT Last administered on 01/27/17 12:48 ; Admin Dose 50 MG; Start 01/26/17 at 21:00 Metoprolol Tartrate 100 mg 100 mg BID NGT Last administered on 01/27/17 09:03 ; Admin Dose 100 MG; Start 01/26/17 at 21:00 Sodium Chloride (NS) 1,000 ml @ 0 mls/hr Q0M IV Last administered on 07:00; Admin Dose 10 MLS/HR; Start 01/27/17 at 12:00 Assessment/Plan Chief Complaint/Hosp Course IMPRESSION AND PLAN: 66-year-old male with history of hypertension, adenocarcinoma of the lung, gout and 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 He has been intubated after having some respiratory distress that pulmonary feels is more central in etiology 1. Respiratory failure- most likely central in Etiology. 2. Fevers now resolved on antibiotics. WBC scan negative Patient had been given some IV steroids and IVIG without any change. 3. Abbi's. The patient is currently on Rituxan which is an immunosuppressant. Again, this puts him at risk for opportunistic infections, so for this reason, I would consider him more at risk of having infection as a cause of a fever. Also his Abbi's has been very well controlled since his diagnosis, he has never had a flare, he has never been hospitalized, with Cytoxan and now Rituxan, I feel like it is unlikely that it would be a Abbi's flare. 4 History of gout. Uric acid levels are low. There is no joint swelling. No joint pain. Therefore, we will just follow him. 5 Acute on Chronic kidney disease, likely secondary to infection. No contrast with MRI per renal. I Problems: SHIRLEY MORALES MD Jan 27, 2017 13:23
[2017-01-27] MEDS ORDERED: LIDOCAINE 1% (MDV) 20 ML INJ ONE (14:13)
[2017-01-27] MEDS: morphine 2 MG INJ IV PRN (14:25)
--- NOTE | 2017-01-27 15:36 | RADRPT ---
PROCEDURE: Fluoroscopic guided lumbar puncture. CLINICAL INDICATION: Altered level of consciousness. TECHNIQUE: Prior to the procedure, informed consent was obtained from the patient's family. A pro cedural pause was performed. The patient's name, date of , and procedure to be performed were verified. Using local anesthetic, sterile technique, and fluoroscopic guidance, a 22-gauge spinal needle was a dvanced into the thecal sac at the L3-4 level. Opening pressure was 28 cm of water. 8 mL of clear cerebrospinal fluid was aspirated and sent for laboratory analysis. The needle was removed. A dres sing was applied. The patient tolerated the procedure well. A total of 0.2 minutes of fluoroscopy time was used. A single frontal image was obtained with the im age intensifier. COMPARISON: None. FINDINGS: Images demonstrate the needle at the L3-4 level in the thecal sac. IMPRESSION: Satisfactory fluoroscopic guided lumbar puncture. The opening pressure was elevated measuring 28 cm of water. RPTAT: QQ .Caden Cerna MD, MD Date Time Electronically viewed and signed by .Caden Cerna MD, on 01/27/2017 15:36 .R/
[2017-01-27 15:50] LABS: CSF MN% 94.7 %; CSF PMN% 5.3 %
[2017-01-27 15:51] LABS: CSF MN% 93.3 %; CSF PMN% 6.7 %
[2017-01-27 16:32] LABS: GLUCOSE,CSF 102 mg/dl (50-80)
[2017-01-27 16:41] LABS: CSF COLOR COLORLESS
[2017-01-27 16:42] LABS: CSF#TUBE COUNT TUBE#1; CSF#TUBES REC'D 2
[2017-01-27 16:43] LABS: CSF COLOR COLORLESS; CSF#TUBE COUNT TUBE#2; CSF#TUBES REC'D 2
--- NOTE | 2017-01-27 18:47 | PN ---
DATE: 01/27/2017 SUBJECTIVE DATA: No events overnight. No fevers. The patient remains non-communicative, off sedation and looks comfortable on vent. Temperature 98.3, pulse 83, respirations 27, blood pressure 176/86. Saturation 97 percent on ventilator. LABORATORY: WBC 10.2. H and H 10.1 and 29.4, platelets 185,000, neutrophils 65.8. BUN 83, creatinine 3.31. DIAGNOSTIC DATA: Chest x-ray this morning revealed left basilar atelectasis versus pneumonia, new findings when compared to the prior examination. MICROBIOLOGY: All cultures have been negative since admission. INDWELLINGS: Endotracheal tube, NG tube, Darden catheter, and PICC line. PHYSICAL EXAMINATION: GENERAL: A wasted, well-developed, elderly man who is intubated, obtunded, but in no distress. HEENT: Head atraumatic, normocephalic. Sclerae anicteric. Buccal mucosa dry. NECK: Supple. Trachea midline. CHEST: Rise symmetrical. Breath sounds diminished at the bases. HEART: S1, S2. ABDOMEN: Soft, bowel sounds present. EXTREMITIES: Without cyanosis. ASSESSMENT: 1. Acute respiratory failure secondary to acute encephalopathy, the patient was intubated for airway protection. 2. Status post-sepsis with high fevers on admission, septic workup negative. Patient has negative WBC labeled nuclear scan. Negative CT scan of abdomen and pelvis. All cultures negative. Cerebrospinal fluid cultures negative. Guerda ink negative. West Nile virus and cerebrospinal fluid negative. Human immunodeficiency virus by PCR are negative. 3. Louis's granulomatosis with immunocompromised state. Status post Rituxan. 4. Acute on chronic kidney disease. 5. 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 6. History of gout. 7. History of early lung cancer without any radiographic findings. 8. Uncontrolled hypertension. PLAN: The patient remains hemodynamically stable. Off antibiotics. Pulmonary team on case. He is also seen for by Nephrology and Rheumatology teams cardiology on case as well. The plan to repeat lumbar puncture. Continue monitoring off antibiotics. Follow chest x-ray. Repeat cultures as needed. Dictated By: Giancarlo Hodges NP /[email or web address] /Document#: [id number]
--- NOTE | 2017-01-27 20:23 | CONS ---
Date/Time of Note Date/Time of Note DATE: 01/27/17 TIME: 20:18 Consult Date/Type/Reason Admit Date/Time Jan 17, 2017 at 17:33 Type of Consultation: neuro Subjective no acute events, no improvement, small versed for tachypnea, had repeat LP, MRI pending Objective Vital Signs Date Time Temp Pulse Resp B/P Pulse Ox O2 Delivery O2 Flow Rate FiO2 01/27/17 18:00 73 20 148/94 98 Mechanical Ventilator 01/27/17 17:20 40 01/27/17 16:00 97.4 Intake and Output 01/26/17 01/26/17 01/27/17 15:00 23:00 07:00 Intake Total 507.35 ml 710 ml 993 ml Output Total 960 ml 622 ml 565 ml Balance -452.65 ml 88 ml 428 ml Exam NEUROLOGIC: Patient is lethargic. Sedated, versed 2 moves UE at times spontaneously , more his left UE. Does not follow commands. No definite response to visual threat bilaterally. Pupils about 2 mm sluggish. Extraocular movements absent spontaneously, able to cross midline on oculocephalic maneuver. Corneal reflexes present bilaterally, as well as gag. Motor strength examination trace withdrawal LE to pain, moved UE . Increased tone in upper extremities, cogwheeling. Deep tendon reflexes, 2+ upper extremities and knees, absent ankle jerks. No response to plantar stimulation bilaterally. Severe nuchal rigidity still present Results/Medications Result Diagram: 01/27/17 0440 01/27/17 0454 Results 24 hrs Laboratory Tests Test 01/27/17 00:17 01/27/17 04:40 01/27/17 04:54 01/27/17 05:02 Bedside Glucose 165 193 White Blood Count 10.2 # Red Blood Count 3.78 L Hemoglobin 10.1 L Hematocrit 29.4 L Mean Corpuscular Volume 77.8 L Mean Corpuscular Hemoglobin 26.7 L Mean Corpuscular Hemoglobin Concent 34.4 Red Cell Distribution Width 18.4 H Platelet Count 185 Mean Platelet Volume 10.7 H Neutrophils % 65.8 Lymphocytes % 7.2 L Monocytes % 17.9 H Eosinophils % 3.6 Basophils % 0.4 Nucleated Red Blood Cells % 0.6 H Neutrophils # (Manual) 6.7 Lymphocytes # 0.7 L Monocytes # 1.8 H Eosinophils # 0.4 Basophils # 0.0 Nucleated Red Blood Cells # 0.1 H Sodium Level 140 Potassium Level 4.2 Chloride Level 105 Carbon Dioxide Level 29 Anion Gap 10 Blood Urea Nitrogen 83 H Creatinine 3.31 H Glucose Level 192 Calcium Level 9.4 Phosphorus Level 4.2 Magnesium Level 2.7 H Test 01/27/17 07:18 01/27/17 09:01 01/27/17 12:39 01/27/17 14:50 Blood Gas Specimen Source Blood arterial Arterial Blood Date Drawn 01/27/2017 7:30:09 AM Arterial Blood pH (Temp corrected) 7.381 Arterial Blood pCO2 (Temp correct) 48.0 H Arterial Blood pO2 (Temp corrected) 350.3 H Arterial Blood HCO3 27.8 H Arterial Blood Base Excess 2.2 Arterial Blood Oxygen Saturation 98.8 H George Test ACCEPTAB Arterial Blood Gas Puncture Site Right Radial Arterial Blood Carboxyhemoglobin 0.2 Arterial Blood Methemoglobin 0.4 Blood Gas A-a O2 Differential 314.7 H Oxyhemoglobin Percent 98.2 Total Hemoglobin 11.1 L Blood Gas Temperature 37.0 Blood Gas Respiration Rate 10.0 Blood Gas Actual Respiration Rate 32 Blood Gas Modality VENT - SIMV FiO2 100.0 Blood Gas Tidal Volume 500.0 Blood Gas Low PEEP Setting 5.0 Blood Gas Pressure Support 14 Blood Gas Notified Whom JLD Blood Gas Notified Time 01/27/2017 7:42:55 AM Bedside Glucose 216 178 CSF Tubes Submitted 2 CSF Volume 8.0 CSF Appearance SLIGHTLY HAZY CSF Color COLORLESS CSF WBC 57 *H CSF RBC 0 CSF Cell Count Tube # TUBE#2 CSF Mononuclear Cells % (Auto) 94.7 CSF Polynuclear WBCs (%) 5.3 CSF Glucose 102 H CSF Total Protein 254 H Test 01/27/17 15:11 01/27/17 16:59 Bedside Glucose 189 181 Medications Current Medications Ondansetron HCl (Zofran Inj) 4 mg Q6H PRN IV NAUSEA AND/OR VOMITING; Start 01/17 at 14:30 Morphine Sulfate (morphine) 2 mg Q4H PRN IV SEVERE PAIN LEVEL 7-10 Last administered on 01/27/17t 14:25; Admin Dose 2 MG; Start 01/17/17 at 14:30 Docusate Sodium (Colace) 100 mg Q12H PRN PO CONSTIPATION; Start 01/17/17 at 14: 30 Febuxostat (Uloric) 40 mg DAILY PO Last administered on 01/27/17 09:02; Admin Dose 40 MG; Start 01/18/17 at 09:00 Diphenhydramine HCl (Benadryl) 25 mg Q4H PRN IV CHILLS; Start 01/17/17 at 18:30 Diltiazem HCl (Cardizem Cd) 240 mg DAILY PO Last administered on 01/27/17 09: 02; Admin Dose 240 MG; Start 01/17/17 at 18:30 Nicotine 1 patch 1 patch DAILY TRANSDERM Last administered on 01/27/17 09:07; Admin Dose 1 PATCH; Start 01/18/17 at 10:30 Acetaminophen (Ofirmev 1000mg/ 100ml Iv) 100 ml @ 400 mls/hr Q4 PRN IVPB FEVER GREATER THAN 100.6 Last administered on 01/23/17 14:09; Admin Dose 400 MLS /HR; Start 01/19/17 at 00:30 Hydralazine HCl (Apresoline) 10 mg Q4H PRN IV hypertension Last administered on 01/27/17 13:56; Admin Dose 10 MG; Start 01/19/17 at 01:00 Labetalol HCl (Labetalol) 20 mg Q3 PRN IV ELEVATED BLOOD PRESSURE Last administered on 01/27/17 11:12; Admin Dose 20 MG; Start 01/19/17 at 02:30 Labetalol HCl (Labetalol) 10 mg Q3 PRN IV ELEVATED BLOOD PRESSURE Last administered on 01/27/17 02:04; Admin Dose 10 MG; Start 01/19/17 at 02:30 Diagnostic Test (Pha) (Accu-Chek) 1 ea 02 XX Last administered on 01/27/17 02: 01; Admin Dose 1 EA; Start 01/20/17 at 02:00 Insulin Aspart (Novolog Insulin Pen) NOVOLOG *MILD* ALGORI... Q4 SC Last administered on 01/27/17 17:24; Admin Dose 1 UNIT; Start 01/19/17 at 09:00 Miscellaneous Information 1 ea NOTE XX ; Start 01/19/17 at 09:00 Glucose (Glutose) 15 gm Q15M PRN PO DECREASED GLUCOSE; Start 01/19/17 at 09:00 Glucose (Glutose) 22.5 gm Q15M PRN PO DECREASED GLUCOSE; Start 01/19/17 at 09:00 Dextrose (D50w Syringe) 25 ml Q15M PRN IV DECREASED GLUCOSE; Start 01/19/17 at 09:00 Dextrose (D50w Syringe) 50 ml Q15M PRN IV DECREASED GLUCOSE; Start 01/19/17 at 09:00 Glucagon (Glucagen) 1 mg Q15M PRN IM DECREASED GLUCOSE; Start 01/19/17 at 09:00 Glucose (Glutose) 15 gm Q15M PRN BUCCAL DECREASED GLUCOSE; Start 01/19/17 at 09: 00 IV Flush (NS 10 ml) 10 ml PRN PRN IV FLUSH LINE; Start 01/19/17 at 12:00 Diphenhydramine HCl (Benadryl Liquid Cup) 25 mg QHS PRN NGT ITCHING; Start 01/19 at 21:00 Hydralazine HCl (Apresoline) 25 mg Q4H PRN NGT hypertension Last administered on 01/25/17 12:17; Admin Dose 25 MG; Start 01/19/17 at 20:30 Acetaminophen/ Hydrocodone Bitart ([place] (5/325)) 1 tab Q6H PRN NGT MODERATE PAIN LEVEL 4-6; Start 01/20/17 at 02:30 Loratadine (Claritin) 10 mg DAILY NGT Last administered on 01/27/17 09:03; Admin Dose 10 MG; Start 01/20/17 at 09:00 Magnesium Hydroxide (Milk Of Mag) 30 ml DAILY PRN NGT CONSTIPATION; Start at 20:30 Acetaminophen (Tylenol Liquid) 1,000 mg Q4H PRN NGT PAIN AND OR ELEVATED TEMP; Start 01/19/17 at 20:30; Status Future Hold Docusate Sodium (Colace Liquid Cup) 100 mg TID NGT Last administered on 12:48; Admin Dose 100 MG; Start 01/19/17 at 21:00 Lorazepam 2 mg 2 mg Q6H PRN IV before LP and MRI Last administered on 01/23/17 11:28; Admin Dose 2 MG; Start 01/20/17 at 00:00 Fentanyl (Sublimaze) 100 ml @ 2.5 mls/hr TITRATE IV Last administered on 04:35; Admin Dose 3 MLS/HR; Start 01/20/17 at 10:00 Lansoprazole 30 mg 30 mg DAILY@06 NGT Last administered on 01/27/17 05:03; Admin Dose 30 MG; Start 01/21/17 at 06:00 Norepinephrine 16 mg/Dextrose 500 ml @ 1.87 mls/hr TITRATE IV ; Start 01/20/17 at 17:30 Midazolam HCl (Versed) 50 ml @ 1 mls/hr TITRATE IV Last administered on 08:00; Admin Dose 2 MLS/HR; Start 01/23/17 at 09:30 Heparin Sodium (Porcine) (Heparin (5000 Units/0.5 ml)) 5,000 unit BID SC Last administered on 01/27/17 09:06; Admin Dose 5,000 UNIT; Start 01/24/17 at 21:00 Insulin Glargine (Lantus) 10 unit DAILY@08 SC Last administered on 01/27/17 07 :53; Admin Dose 10 UNIT; Start 01/25/17 at 14:30 Mirtazapine (Remeron) 15 mg HS NGT Last administered on 01/26/17 20:35; Admin Dose 15 MG; Start 01/26/17 at 21:00 Hydralazine HCl (Apresoline) 50 mg TID NGT Last administered on 01/27/17 12:48 ; Admin Dose 50 MG; Start 01/26/17 at 21:00 Metoprolol Tartrate 100 mg 100 mg BID NGT Last administered on 01/27/17 09:03 ; Admin Dose 100 MG; Start 01/26/17 at 21:00 Sodium Chloride (NS) 1,000 ml @ 0 mls/hr Q0M IV Last administered on 07:00; Admin Dose 10 MLS/HR; Start 01/27/17 at 12:00 Assessment/Plan Chief Complaint/Hosp Course IMPRESSION: A 66-year-old gentleman who presented on 01-17-17 with several days of fevers and generalized weakness, dizziness, a few episodes of nausea, transient shoulder pain. Patient is immunosuppressed and in the hospital,he developed mental status changes, became confused, and complained of diplopia; has also developed noticeable nuchal rigidity, stridor, has to be intubated. Continues to be very encephalopathic, had transient tremor and myoclonus. Symptoms likely reflect meningoencephalitis. HSV PCR was negative, off acyclovir , bacterial and fungal work up negative. West Nile serology was sent out, negative per lab I called earlier today.EEG c/w encephalopathy. S/p IVIG, had very low IG Continue current treatment. Repeat LP, elevated protein 260, WBC 56, lymphocytes. MRI brain repeat pending Problems: LALO MONACO MD Jan 27, 2017 20:23
[2017-01-27] MEDS: DEXTROSE 5%-0.9% NACL 1,000 ML IV SCH (20:29)
[2017-01-27] MEDS: MIRTAZAPINE 15 MG TAB NGT SCH (20:29)
--- NOTE | 2017-01-27 22:27 | PN ---
DATE: 01/27/2017 SUBJECTIVE DATA: Patient remains encephalopathic in the intensive care unit, ventilated. Patient is status post 2nd lumbar puncture, was just done now. Unfortunately, kidney function is worse today. Case discussed in detail today with , the Infectious Disease specialist regarding patient's current diagnosis. OBJECTIVE DATA: VITAL SIGNS: Temperature 98.3, pulse 78, respirations 22, blood pressure 170/95. In an hour or two the systolic blood pressure went down to the 130s. Saturation is 95-97 percent currently on AC mode. ABG done this morning shows a pH of 7.38, pCO2 of 48, O2 of 350, bicarb 28, saturation is 99 percent. This was done on SIMV mode. GENERAL: Patient is encephalopathic on Versed 2 mcg. In general, patient is nonresponsive. EYES: Pupils pinpoint. HEART: S1, S2. Regular rate. LUNGS: Clear bilaterally. ABDOMEN: Slightly distended. EXTREMITIES: Trace upper extremity edema. LABORATORY AND DIAGNOSTIC DATA: White count is 10.2, hemoglobin 10.1, hematocrit 29, platelet count 185, neutrophil count of 66, lymphocytes 7 percent, monocytes 18 percent, elevated. Chemistry: Sodium 140, potassium 4.2, chloride 105, bicarb 29, BUN is 83, creatinine 3.31, glucose of 192. Last glucose level 189 and 178. Again, cytology from the spinal fluid all negative. MEDICATIONS: Reviewed, include: 1. Remeron 15 q.h.s. 2. Hydralazine 50 t.i.d. 3. Lopressor 100 b.i.d. 4. Lantus 10 units daily. 5. Heparin 5000 units b.i.d. 6. Midazolam as directed. 7. Prevacid 30 mg daily. 8. Fentanyl as directed. 9. Claritin 10 mg daily. 10. [place] p.r.n. 11. Accu-Chek q.a.c. and at bedtime. 12. Ativan p.r.n. 13. Benadryl p.r.n. 14. Hydralazine p.r.n. 15. Milk of magnesia p.r.n. 16. Aspart per sliding scale, hypoglycemia protocol. 17. Labetalol p.r.n. 18. Tylenol p.r.n. 19. Nicotine patch 14 mg daily. 20. DuoNebs p.r.n. 21. Uloric 40 mg daily. 22. Cardizem CD 240 daily. 23. Morphine, Zofran, and Colace p.r.n. DIAGNOSTICS: Chest x-ray done today shows a left basilar atelectasis versus pneumonia, new findings when compared to the prior exam, aortic atherosclerosis. Tubes and lines are in place. ASSESSMENT AND PLAN: This is a very unfortunate 66-year-old, male, with history of Abbi granulomatosis, on Rituxan, history of chronic kidney disease, nicotine dependency, hypertension, who presented with 1 week of fever, chills, generalized weakness and decreased p.o. intake, was found to be progressively more encephalopathic, requiring mechanical ventilation to protect his airway. 1. Respiratory. Was quite anxious on SIMV mode earlier, now on AC mode. Continue supportive care, in the setting of encephalopathy. 2. Cardiovascular. Titrated his blood pressure medication up. The systolic blood pressure improved. Patient received morphine and on AC mode. Continue heparin for deep venous thrombosis prophylaxis. 3. Infectious Disease. Patient encephalopathic, status post 2nd lumbar puncture. Follow up all results. Again, part of the differential diagnosis may include progressive multifocal leukoencephalopathy from patient being immunocompromised on Rituxan. 4. Abbi granulomatosis, likely stable. 5. [id number] renal insufficiency. May consider fluid challenge. 6. Hyperglycemia. Continue Lantus 10 units daily. 7. Anemia. Monitor H and H. No need for transfusion. 8. Continue Protonix for gastrointestinal prophylaxis. 9. May consider trach and percutaneous endoscopic gastrostomy soon, as patient's encephalopathy not improving. 10. Keep patient comfortable at all times. Noted dietitian recommendation as well to put him on likely renal diet as directed. 11. I appreciate Neurology, Infectious Disease, Nephrology and Pulmonary followup. 12. Condition is guarded. Dictated By: Gurwinder Triplett MD /[email or web address] /Document#: [id number]
[2017-01-28] VITALS (55 sets, daily range): BP systolic 124–177; BP diastolic 77–105; PULSE 61–85; RESP 14–30
[2017-01-28] MEDS: INSULIN ASPART [NOVOLOG] 3 ML PEN SC SCH ×6 (01:44→20:10)
[2017-01-28] MEDS: ACCU-CHEK XX SCH (02:00)
[2017-01-28 05:50] LABS: ABNORMAL IP MESSAGE 1; BASOPHILS % 0.3 % (0.0-2.0); EOSINOPHILS # 0.1 10^3/ul (0.0-0.5); EOSINOPHILS % 1.2 % (0.0-7.0); HEMATOCRIT 27.8 % (42.0-52.0); HEMOGLOBIN 9.8 g/dl (14.0-18.0); LYMPHOCYTES % 8.1 % (15.0-51.0); MEAN CORPUSCULAR HEMOGLOBIN 26.9 pg (29.0-33.0); MEAN CORPUSCULAR HGB CONC 35.3 g/dl (32.0-37.0); MEAN CORPUSCULAR VOLUME 76.4 fl (82.0-101.0); MEAN PLATELET VOLUME 10.7 fl (7.4-10.4); MONOCYTE # 1.7 10^3/ul (0.3-0.9); NEUTROPHIL # 8.7 10^3/ul (1.6-7.5); NEUTROPHILS % 73.9 % (39.0-77.0); NUCLEATED RED BLOOD CELLS # 0.1 10^3/ul (0.0-0.0); NUCLEATED RED BLOOD CELLS% 0.4 /100WBC (0.0-0.0); PLATELET COUNT 169 10^3/UL (140-415); POSITIVE DIFF @See below; RED BLOOD COUNT 3.64 10^6/ul (4.70-6.10); RED CELL DISTRIBUTION WIDTH 18.6 % (11.5-14.5); WHITE BLOOD COUNT 11.8 10^3/ul (4.8-10.8)
[2017-01-28 06:30] LABS: CREATININE 4.1 mg/dl (0.61-1.24); POTASSIUM 4.6 mmol/L (3.5-5.1)
[2017-01-28] MEDS: LANSOPRAZOLE 30 MG CAP NGT SCH (06:43)
[2017-01-28] MEDS: MIDAZOLAM (DRIP) 50 mg/50 mL 50 ML IV SCH ×2 (07:37→16:22)
--- NOTE | 2017-01-28 08:39 | PN ---
DATE: 01/28/2017 SUBJECTIVE DATA: The patient remains critically ill. Remains hypotensive. Altered. No other events noted. OBJECTIVE DATA: VITAL SIGNS: Blood pressure 116/95, respiratory 26, respiration 18, temperature 97.5. I's and O's patient 1 L in with 1 L out. HEENT: Head is normocephalic. NECK: Supple. HEART: Regular rate. LUNGS: Diminished breath sounds at the base. ABDOMEN: Soft, nontender to palpation. No rebound or guarding. EXTREMITIES: Negative for clubbing, cyanosis. Trace edema. DERMATOLOGIC: No rashes. MUSCULOSKELETAL: No joint effusion. NEUROLOGIC: No change in exam. LABORATORY AND DIAGNOSTIC DATA: less than 1 percent. Protein creatinine ratio approximately 7 g/g creatinine. Microalbumin creatinine ratio show 2 g/g creatinine. The patient's chest x-ray was reviewed. Repeat urinalysis is pending. ASSESSMENT AND PLAN: 1. Nonoliguric acute kidney injury on top of chronic kidney disease with previous baseline creatinine 1.7 to 2.0 mg/dL. Etiology of current acute kidney injury secondary to septic acute kidney injury in conjunction with acute tubular necrosis. The patient's repeat urinalysis shows a FENa less than 1 percent, which can be seen in patients with sepsis or decreased hypoperfusion. The patient remains in injury phase of acute tubular necrosis and his creatinine continues to rise. At this point, there is no immediate need for renal placement therapy. We will continue to monitor closely. Continue supportive care. Renally dose all medications. 2. Volume overload. Continue to monitor. We will give intermittent diuretic therapy as needed. 3. Anemia. Monitor H and H levels. 4. Mineral bone disorder. Continue to monitor calcium and phosphorus levels. 5. Severe sepsis. Underlying source unclear. Possible encephalitis. Continue antimicrobial antiviral therapy. Follow up Infectious Disease. 6. History of Abbi's granulomatosis. Patient status post Rituxan. Follow up with Oncology. 7. Gastrointestinal and deep venous thrombosis prophylaxis. Continue PPI and sequential leg squeezes. 8. Ventilatory-dependent respiratory failure. Vent settings and ABGs reviewed. Continue to monitor. Follow up with Pulmonary. 9. Hypomagnesemia. Secondary to acute kidney injury. Continue to monitor. Dictated By: Jim Sierra DO /eladio/eliza /Document#: [id number]
[2017-01-28] MEDS: DOCUSATE SODIUM 10 MG/ML (10ML CUP) NGT SCH ×3 (09:51→20:07)
[2017-01-28] MEDS: LORATADINE 10 MG TAB NGT SCH (09:52)
[2017-01-28] MEDS: NICOTINE (14 MG/24 HR) PATCH TRANSDERM SCH (09:52)
[2017-01-28] MEDS: METOPROLOL 100 MG TAB NGT SCH ×2 (09:52→20:07)
[2017-01-28] MEDS: FEBUXOSTAT 40 MG TABLET PO SCH (09:52)
[2017-01-28] MEDS: DILTIAZEM (CD) 240 MG CAP PO SCH (09:53)
[2017-01-28] MEDS: INSULIN GLARGINE [LANtus] 3 ML PEN SC SCH (09:55)
[2017-01-28] MEDS: HEPARIN 5,000 UNIT/0.5 ML VIAL SC SCH ×2 (09:56→20:09)
--- NOTE | 2017-01-28 10:43 | CONS ---
Date/Time of Note Date/Time of Note DATE: 01/28/17 TIME: 10:40 Assessment/Plan Assessment/Plan Additional Assessment/Plan Ventilator setting; AC of 14, tidal volume 500, PEEP of 5, 40% FiO2. Patient currently on Versed drip at 2 mg/h. Assessment and recommendations; 1. Patient admitted with meningoencephalitis leading to respiratory failure with persistently poor mental status. Scheduled for repeat MRI of the brain today. 2. 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 And also has been on chronic immunosuppression. 3. History of renal insufficiency with acute worsening in renal function. Continue current supportive care. Patient may require hemodialysis. Weaning from ventilator with depend upon adequate mental status recovery. Consultation Date/Type/Reason Admit Date/Time Jan 17, 2017 at 17:33 Type of Consultation: Pulmonary/critical care 24 HR Interval Summary Free Text/Dictation Patient condition remains critical. Remains essentially unresponsive off sedation but had to be started on Versed drip for agitation. Patient also underwent repeat lumbar puncture yesterday. Which is showing high protein level. General exam; elderly male, on ventilator via endotracheal tube. Sedated. Currently in no distress. Exam/Review of Systems Vital Signs Vitals Vital Signs Date Time Temp Pulse Resp B/P Pulse Ox O2 Delivery O2 Flow Rate FiO2 01/28/17 10:00 81 25 168/90 99 Mechanical Ventilator 01/28/17 08:00 99.0 01/28/17 08:00 40 Intake and Output 01/27/17 01/27/17 01/28/17 15:00 23:00 07:00 Intake Total 674 ml 206 ml 434 ml Output Total 479 ml 324 ml 229 ml Balance 195 ml -118 ml 205 ml Exam HEENT exam; orally intubated. Neck is stiff. Pupils are midsize bilaterally. Dentition is fair. No neck masses. Chest exam; diminished but clear breath sounds. S1-S2 audible, no murmurs. Regular rhythm. Abdomen exam; soft, no organomegaly. Bowel sounds audible. Extremity exam; 1+ anasarca. Pulses 1+ bilaterally. 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 Results Result Diagram: 01/28/17 0515 01/28/17 0515 Results 24 hrs Laboratory Tests Test 01/27/17 12:39 01/27/17 14:50 01/27/17 15:11 01/27/17 16:59 Bedside Glucose 178 189 181 CSF Tubes Submitted 2 CSF Volume 8.0 CSF Appearance SLIGHTLY HAZY CSF Color COLORLESS CSF WBC 57 *H CSF RBC 0 CSF Cell Count Tube # TUBE#2 CSF Mononuclear Cells % (Auto) 94.7 CSF Polynuclear WBCs (%) 5.3 CSF Glucose 102 H CSF Total Protein 254 H Test 01/27/17 20:00 01/27/17 20:28 01/28/17 01:40 01/28/17 04:45 Urine Random Creatinine 50.89 Urine Random Sodium 13 L Urine Total Protein 447.0 H Bedside Glucose 157 157 163 Test 01/28/17 05:15 01/28/17 05:19 01/28/17 09:36 White Blood Count 11.8 H Red Blood Count 3.64 L Hemoglobin 9.8 L Hematocrit 27.8 L Mean Corpuscular Volume 76.4 L Mean Corpuscular Hemoglobin 26.9 L Mean Corpuscular Hemoglobin Concent 35.3 Red Cell Distribution Width 18.6 H Platelet Count 169 Mean Platelet Volume 10.7 H Neutrophils % 73.9 Lymphocytes % 8.1 L Monocytes % 14.0 H Eosinophils % 1.2 Basophils % 0.3 Nucleated Red Blood Cells % 0.4 H Neutrophils # 8.7 H Lymphocytes # 1.0 Monocytes # 1.7 H Eosinophils # 0.1 Basophils # 0.0 Nucleated Red Blood Cells # 0.1 H Sodium Level 143 Potassium Level 4.6 Chloride Level 108 Carbon Dioxide Level 27 Anion Gap 13 Blood Urea Nitrogen 115 #H Creatinine 4.10 H Glucose Level 171 Calcium Level 9.0 Phosphorus Level 5.0 H Magnesium Level 3.0 H Bedside Glucose 155 147 Medications Medications Current Medications Ondansetron HCl (Zofran Inj) 4 mg Q6H PRN IV NAUSEA AND/OR VOMITING; Start 01/17 at 14:30 Morphine Sulfate (morphine) 2 mg Q4H PRN IV SEVERE PAIN LEVEL 7-10 Last administered on 01/27/17 14:25; Admin Dose 2 MG; Start 01/17/17 at 14:30 Docusate Sodium (Colace) 100 mg Q12H PRN PO CONSTIPATION; Start 01/17/17 at 14: 30 Febuxostat (Uloric) 40 mg DAILY PO Last administered on 01/28/17 09:52; Admin Dose 40 MG; Start 01/18/17 at 09:00 Diphenhydramine HCl (Benadryl) 25 mg Q4H PRN IV CHILLS; Start 01/17/17 at 18:30 Diltiazem HCl (Cardizem Cd) 240 mg DAILY PO Last administered on 01/28/17 09: 53; Admin Dose 240 MG; Start 01/17/17 at 18:30 Nicotine 1 patch 1 patch DAILY TRANSDERM Last administered on 01/28/17 09:52; Admin Dose 1 PATCH; Start 01/18/17 at 10:30 Acetaminophen (Ofirmev 1000mg/ 100ml Iv) 100 ml @ 400 mls/hr Q4 PRN IVPB FEVER GREATER THAN 100.6 Last administered on 01/23/17 14:09; Admin Dose 400 MLS /HR; Start 01/19/17 at 00:30 Hydralazine HCl (Apresoline) 10 mg Q4H PRN IV hypertension Last administered on 01/27/17 22:20; Admin Dose 10 MG; Start 01/19/17 at 01:00 Labetalol HCl (Labetalol) 20 mg Q3 PRN IV ELEVATED BLOOD PRESSURE Last administered on 01/27/17 11:12; Admin Dose 20 MG; Start 01/19/17 at 02:30 Labetalol HCl (Labetalol) 10 mg Q3 PRN IV ELEVATED BLOOD PRESSURE Last administered on 01/27/17 02:04; Admin Dose 10 MG; Start 01/19/17 at 02:30 Diagnostic Test (Pha) (Accu-Chek) 1 ea 02 XX Last administered on 01/27/17 02: 01; Admin Dose 1 EA; Start 01/20/17 at 02:00 Insulin Aspart (Novolog Insulin Pen) NOVOLOG *MILD* ALGORI... Q4 SC Last administered on 01/28/17 09:56; Admin Dose 1 UNIT; Start 01/19/17 at 09:00 Miscellaneous Information 1 ea NOTE XX ; Start 01/19/17 at 09:00 Glucose (Glutose) 15 gm Q15M PRN PO DECREASED GLUCOSE; Start 01/19/17 at 09:00 Glucose (Glutose) 22.5 gm Q15M PRN PO DECREASED GLUCOSE; Start 01/19/17 at 09:00 Dextrose (D50w Syringe) 25 ml Q15M PRN IV DECREASED GLUCOSE; Start 01/19/17 at 09:00 Dextrose (D50w Syringe) 50 ml Q15M PRN IV DECREASED GLUCOSE; Start 01/19/17 at 09:00 Glucagon (Glucagen) 1 mg Q15M PRN IM DECREASED GLUCOSE; Start 01/19/17 at 09:00 Glucose (Glutose) 15 gm Q15M PRN BUCCAL DECREASED GLUCOSE; Start 01/19/17 at 09: 00 IV Flush (NS 10 ml) 10 ml PRN PRN IV FLUSH LINE; Start 01/19/17 at 12:00 Diphenhydramine HCl (Benadryl Liquid Cup) 25 mg QHS PRN NGT ITCHING; Start 01/19 at 21:00 Hydralazine HCl (Apresoline) 25 mg Q4H PRN NGT hypertension Last administered on 01/25/17 12:17; Admin Dose 25 MG; Start 01/19/17 at 20:30 Acetaminophen/ Hydrocodone Bitart ([place] (5/325)) 1 tab Q6H PRN NGT MODERATE PAIN LEVEL 4-6; Start 01/20/17 at 02:30 Loratadine (Claritin) 10 mg DAILY NGT Last administered on 01/28/17 09:52; Admin Dose 10 MG; Start 01/20/17 at 09:00 Magnesium Hydroxide (Milk Of Mag) 30 ml DAILY PRN NGT CONSTIPATION; Start at 20:30 Acetaminophen (Tylenol Liquid) 1,000 mg Q4H PRN NGT PAIN AND OR ELEVATED TEMP; Start 01/19/17 at 20:30; Status Future Hold Docusate Sodium (Colace Liquid Cup) 100 mg TID NGT Last administered on 09:51; Admin Dose 100 MG; Start 01/19/17 at 21:00 Lorazepam 2 mg 2 mg Q6H PRN IV before LP and MRI Last administered on 01/23/17 11:28; Admin Dose 2 MG; Start 01/20/17 at 00:00 Fentanyl (Sublimaze) 100 ml @ 2.5 mls/hr TITRATE IV Last administered on 04:35; Admin Dose 3 MLS/HR; Start 01/20/17 at 10:00 Lansoprazole 30 mg 30 mg DAILY@06 NGT Last administered on 01/28/17 06:43; Admin Dose 30 MG; Start 01/21/17 at 06:00 Norepinephrine 16 mg/Dextrose 500 ml @ 1.87 mls/hr TITRATE IV ; Start 01/20/17 at 17:30 Midazolam HCl (Versed) 50 ml @ 1 mls/hr TITRATE IV Last administered on 07:37; Admin Dose 2 MLS/HR; Start 01/23/17 at 09:30 Heparin Sodium (Porcine) (Heparin (5000 Units/0.5 ml)) 5,000 unit BID SC Last administered on 01/28/17 09:56; Admin Dose 5,000 UNIT; Start 01/24/17 at 21:00 Insulin Glargine (Lantus) 10 unit DAILY@08 SC Last administered on 01/28/17 09 :55; Admin Dose 10 UNIT; Start 01/25/17 at 14:30 Mirtazapine (Remeron) 15 mg HS NGT Last administered on 01/27/17 20:29; Admin Dose 15 MG; Start 01/26/17 at 21:00 Hydralazine HCl (Apresoline) 50 mg TID NGT Last administered on 01/28/17 09:52 ; Admin Dose 50 MG; Start 01/26/17 at 21:00 Metoprolol Tartrate 100 mg 100 mg BID NGT Last administered on 01/28/17 09:52 ; Admin Dose 100 MG; Start 01/26/17 at 21:00 Sodium Chloride 1,000 ml @ 0 mls/hr Q0M IV Last administered on 01/27/17 07: 00; Admin Dose 10 MLS/HR; Start 01/27/17 at 12:00 Dextrose/Sodium Chloride (D5-NS) 1,000 ml @ 60 mls/hr [id number] IV Last administered on 01/27/17 20:29; Admin Dose 60 MLS/HR; Start 01/27/17 at 20:30 RATNA MORENO Jan 28, 2017 10:43
[2017-01-28] MEDS: DEXTROSE 5%-0.9% NACL 1,000 ML IV SCH (12:11)
--- NOTE | 2017-01-28 13:33 | RADRPT ---
PROCEDURE: MR Brain without contrast. CLINICAL INDICATION: Neurologic deficit, encephalopathy TECHNIQUE: An MRI of the brain was performed on a high-resolution MR scanner utilizing the followi ng sequences: Sagittal and axial T1 weighted, axial T2 weighted, axial FLAIR, coronal GRE, and axial diffusion weighted with ADC mapping. Images were reviewed high-resolution PACS workstation. No con trast was administered. COMPARISON: Brain MRI 01/19/2017 FINDINGS: Interval development of T2/FLAIR hyperintensity of the bilateral cerebellar hemispheres with narrowi ng of the cerebellar folia most notably inferiorly (series 5 image 3). No significant mass effect on the fourth ventricle. The basal cisterns remain clear. No acute vascular territorial diffusion rest riction. No acute parenchymal hemorrhage or midline shift. No suspicious parenchymal hypointense signal abnormalities are seen on the GRE images to suggest the presence of blood degradation products. The ventricles are stable size.. Normal flow voids are visible in the proximal intracranial arteries suggesting their patency. Opacified bilateral mastoids. IMPRESSION: Interval development of edema of the bilateral cerebellar hemispheres with narrowing of the inferior cerebellar folia compatible with cerebellar encephalitis. This may be due to underlying infection, inflammation or paraneoplastic process. Recommend correlation with patient history and CSF studies. Consider contrast enhanced imaging for further evaluation. No acute vascular territory infarct identified. No midline shift or basal cistern narrowing. A call report was made to SHAY Cornejo at 01/28/2017 1:29:51 PM. RPTAT: AA .Luis Ferguson MD, MD Date Time Electronically viewed and signed by .Luis Ferguson MD, MD on 01/28/2017 13:33 .T/
--- NOTE | 2017-01-28 13:42 | CONS ---
Date/Time of Note Date/Time of Note DATE: 01/28/17 TIME: 13:39 Consult Date/Type/Reason Admit Date/Time Jan 17, 2017 at 17:33 Type of Consultation: Rheum Subjective Just had MRI. LP done yesterday. Guerda ink and gram stain negative. other studies pending. Objective Vital Signs Date Time Temp Pulse Resp B/P Pulse Ox O2 Delivery O2 Flow Rate FiO2 01/28/17 12:00 98.4 64 14 156/77 99 Mechanical Ventilator 01/28/17 11:20 40 Intake and Output 01/27/17 01/27/17 01/28/17 15:00 23:00 07:00 Intake Total 674 ml 206 ml 434 ml Output Total 479 ml 324 ml 229 ml Balance 195 ml -118 ml 205 ml Results/Medications Result Diagram: 01/28/17 0515 01/28/17 0515 Results 24 hrs Laboratory Tests Test 01/27/17 14:50 01/27/17 15:11 01/27/17 16:59 01/27/17 20:00 CSF Tubes Submitted 2 CSF Volume 8.0 CSF Appearance SLIGHTLY HAZY CSF Color COLORLESS CSF WBC 57 *H CSF RBC 0 CSF Cell Count Tube # TUBE#2 CSF Mononuclear Cells % (Auto) 94.7 CSF Polynuclear WBCs (%) 5.3 CSF Glucose 102 H CSF Total Protein 254 H Bedside Glucose 189 181 Urine Random Creatinine 50.89 Urine Random Sodium 13 L Urine Total Protein 447.0 H Test 01/27/17 20:28 01/28/17 01:40 01/28/17 04:45 01/28/17 05:15 Bedside Glucose 157 157 163 White Blood Count 11.8 H Red Blood Count 3.64 L Hemoglobin 9.8 L Hematocrit 27.8 L Mean Corpuscular Volume 76.4 L Mean Corpuscular Hemoglobin 26.9 L Mean Corpuscular Hemoglobin Concent 35.3 Red Cell Distribution Width 18.6 H Platelet Count 169 Mean Platelet Volume 10.7 H Neutrophils % 73.9 Lymphocytes % 8.1 L Monocytes % 14.0 H Eosinophils % 1.2 Basophils % 0.3 Nucleated Red Blood Cells % 0.4 H Neutrophils # 8.7 H Lymphocytes # 1.0 Monocytes # 1.7 H Eosinophils # 0.1 Basophils # 0.0 Nucleated Red Blood Cells # 0.1 H Sodium Level 143 Potassium Level 4.6 Chloride Level 108 Carbon Dioxide Level 27 Anion Gap 13 Blood Urea Nitrogen 115 #H Creatinine 4.10 H Glucose Level 171 Calcium Level 9.0 Phosphorus Level 5.0 H Magnesium Level 3.0 H Test 01/28/17 05:19 01/28/17 09:36 01/28/17 12:09 Bedside Glucose 155 147 137 Medications Current Medications Ondansetron HCl (Zofran Inj) 4 mg Q6H PRN IV NAUSEA AND/OR VOMITING; Start 01/17 at 14:30 Morphine Sulfate (morphine) 2 mg Q4H PRN IV SEVERE PAIN LEVEL 7-10 Last administered on 01/27/17 14:25; Admin Dose 2 MG; Start 01/17/17 at 14:30 Docusate Sodium (Colace) 100 mg Q12H PRN PO CONSTIPATION; Start 01/17/17 at 14: 30 Febuxostat (Uloric) 40 mg DAILY PO Last administered on 01/28/17 09:52; Admin Dose 40 MG; Start 01/18/17 at 09:00 Diphenhydramine HCl (Benadryl) 25 mg Q4H PRN IV CHILLS; Start 01/17/17 at 18:30 Diltiazem HCl (Cardizem Cd) 240 mg DAILY PO Last administered on 01/28/17 09: 53; Admin Dose 240 MG; Start 01/17/17 at 18:30 Nicotine 1 patch 1 patch DAILY TRANSDERM Last administered on 01/28/17 09:52; Admin Dose 1 PATCH; Start 01/18/17 at 10:30 Acetaminophen (Ofirmev 1000mg/ 100ml Iv) 100 ml @ 400 mls/hr Q4 PRN IVPB FEVER GREATER THAN 100.6 Last administered on 01/23/17 14:09; Admin Dose 400 MLS /HR; Start 01/19/17 at 00:30 Hydralazine HCl (Apresoline) 10 mg Q4H PRN IV hypertension Last administered on 01/27/17 22:20; Admin Dose 10 MG; Start 01/19/17 at 01:00 Labetalol HCl (Labetalol) 20 mg Q3 PRN IV ELEVATED BLOOD PRESSURE Last administered on 01/27/17 11:12; Admin Dose 20 MG; Start 01/19/17 at 02:30 Labetalol HCl (Labetalol) 10 mg Q3 PRN IV ELEVATED BLOOD PRESSURE Last administered on 01/27/17 02:04; Admin Dose 10 MG; Start 01/19/17 at 02:30 Diagnostic Test (Pha) (Accu-Chek) 1 ea 02 XX Last administered on 01/27/17 02: 01; Admin Dose 1 EA; Start 01/20/17 at 02:00 Insulin Aspart (Novolog Insulin Pen) NOVOLOG *MILD* ALGORI... Q4 SC Last administered on 01/28/17 09:56; Admin Dose 1 UNIT; Start 01/19/17 at 09:00 Miscellaneous Information 1 ea NOTE XX ; Start 01/19/17 at 09:00 Glucose (Glutose) 15 gm Q15M PRN PO DECREASED GLUCOSE; Start 01/19/17 at 09:00 Glucose (Glutose) 22.5 gm Q15M PRN PO DECREASED GLUCOSE; Start 01/19/17 at 09:00 Dextrose (D50w Syringe) 25 ml Q15M PRN IV DECREASED GLUCOSE; Start 01/19/17 at 09:00 Dextrose (D50w Syringe) 50 ml Q15M PRN IV DECREASED GLUCOSE; Start 01/19/17 at 09:00 Glucagon (Glucagen) 1 mg Q15M PRN IM DECREASED GLUCOSE; Start 01/19/17 at 09:00 Glucose (Glutose) 15 gm Q15M PRN BUCCAL DECREASED GLUCOSE; Start 01/19/17 at 09: 00 IV Flush (NS 10 ml) 10 ml PRN PRN IV FLUSH LINE; Start 01/19/17 at 12:00 Diphenhydramine HCl (Benadryl Liquid Cup) 25 mg QHS PRN NGT ITCHING; Start 01/19 at 21:00 Hydralazine HCl (Apresoline) 25 mg Q4H PRN NGT hypertension Last administered on 01/25/17 12:17; Admin Dose 25 MG; Start 01/19/17 at 20:30 Acetaminophen/ Hydrocodone Bitart ([place] (5/325)) 1 tab Q6H PRN NGT MODERATE PAIN LEVEL 4-6; Start 01/20/17 at 02:30 Loratadine (Claritin) 10 mg DAILY NGT Last administered on 01/28/17 09:52; Admin Dose 10 MG; Start 01/20/17 at 09:00 Magnesium Hydroxide (Milk Of Mag) 30 ml DAILY PRN NGT CONSTIPATION; Start at 20:30 Acetaminophen (Tylenol Liquid) 1,000 mg Q4H PRN NGT PAIN AND OR ELEVATED TEMP; Start 01/19/17 at 20:30; Status Future Hold Docusate Sodium (Colace Liquid Cup) 100 mg TID NGT Last administered on 12:11; Admin Dose 100 MG; Start 01/19/17 at 21:00 Lorazepam 2 mg 2 mg Q6H PRN IV before LP and MRI Last administered on 01/23/17 11:28; Admin Dose 2 MG; Start 01/20/17 at 00:00 Fentanyl (Sublimaze) 100 ml @ 2.5 mls/hr TITRATE IV Last administered on 04:35; Admin Dose 3 MLS/HR; Start 01/20/17 at 10:00 Lansoprazole 30 mg 30 mg DAILY@06 NGT Last administered on 01/28/17 06:43; Admin Dose 30 MG; Start 01/21/17 at 06:00 Norepinephrine 16 mg/Dextrose 500 ml @ 1.87 mls/hr TITRATE IV ; Start 01/20/17 at 17:30 Midazolam HCl (Versed) 50 ml @ 1 mls/hr TITRATE IV Last administered on 07:37; Admin Dose 2 MLS/HR; Start 01/23/17 at 09:30 Heparin Sodium (Porcine) (Heparin (5000 Units/0.5 ml)) 5,000 unit BID SC Last administered on 01/28/17 09:56; Admin Dose 5,000 UNIT; Start 01/24/17 at 21:00 Insulin Glargine (Lantus) 10 unit DAILY@08 SC Last administered on 01/28/17 09 :55; Admin Dose 10 UNIT; Start 01/25/17 at 14:30 Mirtazapine (Remeron) 15 mg HS NGT Last administered on 01/27/17 20:29; Admin Dose 15 MG; Start 01/26/17 at 21:00 Hydralazine HCl (Apresoline) 50 mg TID NGT Last administered on 01/28/17 12:11 ; Admin Dose 50 MG; Start 01/26/17 at 21:00 Metoprolol Tartrate 100 mg 100 mg BID NGT Last administered on 01/28/17 09:52 ; Admin Dose 100 MG; Start 01/26/17 at 21:00 Sodium Chloride 1,000 ml @ 0 mls/hr Q0M IV Last administered on 01/27/17 07: 00; Admin Dose 10 MLS/HR; Start 01/27/17 at 12:00 Dextrose/Sodium Chloride (D5-NS) 1,000 ml @ 60 mls/hr [id number] IV Last administered on 01/28/17 12:11; Admin Dose 60 MLS/HR; Start 01/27/17 at 20:30 Assessment/Plan Chief Complaint/Hosp Course IMPRESSION AND PLAN: 66-year-old male with history of hypertension, adenocarcinoma of the lung, gout and Abbi's that has affected his small bowel and his kidneys now presenting with a 1-week history of fevers, chills, generalized weakness and confusiont. He has been intubated after having some respiratory distress that pulmonary feels is more central in etiology 1. Respiratory failure- most likely central in Etiology. 2. Fevers now resolved on antibiotics. WBC scan negative Patient had been given some IV steroids and IVIG without any change. LP results pendin MRI results pedning. 3. Abbi's. The patient is currently on Rituxan which is an immunosuppressant. Again, this puts him at risk for opportunistic infections, so for this reason, I would consider him more at risk of having infection as a cause of a fever. Also his Abbi's has been very well controlled since his diagnosis, he has never had a flare, he has never been hospitalized, with Cytoxan and now Rituxan, I feel like it is unlikely that it would be a Abbi's flare. 4 History of gout. Uric acid levels are low. There is no joint swelling. No joint pain. Therefore, we will just follow him. 5 Acute on Chronic kidney disease, likely secondary to infection. I Problems: SHIRLEY MORALES MD Jan 28, 2017 13:41
[2017-01-28] MEDS ORDERED: SOD CHLORIDE 0.9% 1,000 ML IV ONE (15:00)
[2017-01-28] MEDS: SOD CHLORIDE 0.9% 1,000 ML IV SCH (15:07)
--- NOTE | 2017-01-28 16:59 | PN ---
DATE: 01/28/2017 SUBJECTIVE DATA: No events overnight. The patient remains intubated on low-dose Versed. He is in no distress and afebrile. Temperature 98.4, pulse 64, respirations 14, blood pressure 156/77, saturation 99% on 40 FiO2. DIAGNOSTICS: The patient had MRI of the brain that revealed development of edema of the bilateral cerebral hemispheres with narrowing of inferior cerebellar folia compatible with cerebellar encephalitis. No acute vascular territory infarct. No shift or basal cistern narrowing. The patient had a lumbar puncture done yesterday with CSF appearance slightly hazy, colorless, and white blood cell count of 59, glucose 102, and total protein of 254. Cryptococcal antigen was negative. NG ink negative. CSF culture preliminary showed no organisms and no growth after 1 day. The patient is off antibiotics status post vancomycin and Zosyn, as well as high-dose Rocephin and Unasyn since admission. Previous CSF cultures have been negative as well. INDWELLINGS: Endotracheal tube, NG tube, PICC line, and Darden catheter. PHYSICAL EXAMINATION: GENERAL: This is a well-developed, well-nourished, elderly man, who is intubated, sedated, in no distress. HEENT: Head is atraumatic and normocephalic. Sclerae are anicteric. Buccal mucosa is dry. NECK: Supple. Trachea is midline. LUNGS: Chest rise is symmetrical. Breath sounds are diminished at the bases. HEART: S1, S2. ABDOMEN: Soft. Bowel sounds present. EXTREMITIES: Without cyanosis. ASSESSMENT: 1. Acute encephalopathy with cerebellar encephalitis, new findings for today's brain MRI. MRI of the brain on admission was within normal limits, and all cultures have been negative up- to-date. The patient had an LP yesterday. CSF cultures preliminary negative and negative Gram stain. The patient had been on antibiotics since admission that were discontinued 3 days ago. He also had been on acyclovir with CSF and HSV by PCR being negative. 2. Respiratory failure secondary to acute encephalopathy intubated for airway protection. 3. History of Jc's granulomatosis. 4. Acute on chronic kidney disease. 5. Uncontrolled hypertension. 6. History of lung cancer with negative radiographic findings. PLAN: The patient remains clinically unchanged and hemodynamically stable. So far, there is no acute infectious process. He is being followed by multiple consultants. We will await for final workup of CSF cultures. Above was discussed with Dr. Galvez. Dictated By: Giancarlo Hodges NP /[email or web address]/[email or web address] /Document#: [id number]
--- NOTE | 2017-01-28 17:39 | PN ---
DATE: 01/28/2017 SUBJECTIVE: Unfortunately, the patient remains encephalopathic and unresponsive to verbal stimuli. The patient's eyes are closed. The patient remains on low-dose Versed. The cases has been discussed with Dr. Terrell and Dr. Galvez. His MRI was just done, which unfortunately shows interval development of edema of the bilateral cerebellar hemispheres with narrowing of the inferior cerebellar folia, compatible with cerebellar encephalitis. This may be due to underlying infection, inflammation, or possible neoplastic process. Recommend correlation with the patient's history and CSF study. Consider contrast and has imaging for further evaluation. No acute vascular territory infarct. No midline shift or basal cistern narrowing. The patient's kidney function has worsened as well. That is why we did not do the MRI with contrast. DIAGNOSTICS: The patient's BUN and creatinine today is 115/4.1. We will try a fluid challenge. The case was discussed with Dr. Sierra as well. PHYSICAL EXAMINATION: VITALS: Temperature is 98.4. The patient's T-max is 99 in the past 24 hours, pulse 64, respirations 14, blood pressure 146/77, saturation 99 percent on AC mode 40 percent FiO2. The patient had no ABG today. GENERAL: The patient remained on Versed. Eyes are closed. Nonresponsive to verbal stimuli. HEART: S1 and S2. LUNGS: Decreased bilaterally. ABDOMEN: Soft, nontender. EXTREMITIES: There is trace edema throughout. LABS: White count is he 11.8, hemoglobin 9.8, hematocrit 28, platelet count 169, neutrophils 74 percent. Lymphocytes 8 percent, monocytes 14 percent. Chemistry: Sodium is 143, potassium is 4.6, chloride 108, bicarb 27, BUN 115, creatinine 4.1, blood glucose at 137, 147, 155. Magnesium is high at 3.0. MEDICATION: 1. I just wrote for a bolus of 1 L normal saline. 2. The patient has been on D5 normal saline at 60 mL/hour. 3. Remeron 15 mg q.h.s. 4. Hydralazine 50 t.i.d. 5. Lopressor 100 b.i.d. 6. Lantus 10 units daily. 7. Heparin 5000 units b.i.d. 8. Midazolam as directed. 9. Prevacid 10 mg daily. 10. Fentanyl currently off. 11. Hypoglycemia protocol as directed. 12. Labetalol p.r.n. IV. 13. Hydralazine IV p.r.n. 14. Tylenol p.r.n. 15. Duonebs p.r.n. 16. Uloric 40 mg daily 17. Benadryl p.r.n. 18. Cardizem CD 240 daily. 19. Zofran p.r.n. 20. Morphine p.r.n. 21. Colace p.r.n. 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 intake. He was found to have progressively worsening encephalopathy requiring mechanical ventilation. 1. Respiratory. Continue AC mode if patient's neurological condition is not improving. Again, may need the trach soon. Continue supportive care. Clinically, no evidence for fluid overload. 2. Cardiovascular. Continue blood pressure medications. Blood pressure is better controlled. Heparin for deep venous thrombosis prophylaxis. 3. Infectious disease. The patient is off antibiotics. The patient's encephalitis may be related to a viral etiology, status post a spinal tap yesterday, awaiting further tests. I am concerned about the SO virus causing progressive multifocal leukoencephalopathy in the patient who is immunocompromised on Rituxan. The prognosis is poor if that is the diagnosis. Infectious Disease, Neurology, and Rheumatology are aware. 4. Hyperglycemia. Continue Lantus 10 units daily. 5. Acute on chronic renal insufficiency. Fluid challenge will be attempted. Otherwise, the patient may need to be on dialysis for possible uremia. 6. Continue Protonix for gastrointestinal prophylaxis. 7. Resume G-tube feeding, as the patient's abdomen appears to be soft. Change D5 normal saline to normal saline, and we will follow. 8. History of Abbi granulomatosis. Per Rheumatology, does not appear to be in relapse. 9. Continue Versed to keep patient comfortable. We will follow. Dictated By: Gurwinder Triplett MD /[email or web address] /Document#: [id number]
[2017-01-28] MEDS: FENTAnyl (DRIP) 1000 mcg/100mL 100 ML IV SCH (17:54)
--- NOTE | 2017-01-28 22:10 | CONS ---
Date/Time of Note Date/Time of Note DATE: 01/28/17 TIME: 22:05 Consult Date/Type/Reason Admit Date/Time Jan 17, 2017 at 17:33 Type of Consultation: neuro Subjective tachypnea, more sedated Objective Vital Signs Date Time Temp Pulse Resp B/P Pulse Ox O2 Delivery O2 Flow Rate FiO2 01/28/17 20:30 74 17 158/91 99 Mechanical Ventilator 01/28/17 20:00 97.4 01/28/17 20:00 40 Intake and Output 01/27/17 01/27/17 01/28/17 15:00 23:00 07:00 Intake Total 674 ml 206 ml 434 ml Output Total 479 ml 324 ml 229 ml Balance 195 ml -118 ml 205 ml Exam NEUROLOGIC: Patient is lethargic. Sedated. Intubated Does not follow commands. No definite response to visual threat bilaterally. Pupils about 2 mm sluggish. Extraocular movements absent spontaneously, able to cross midline on oculocephalic maneuver. Corneal reflexes present bilaterally, as well as gag. Motor strength examination no movements, on increased Versed . Slightly increased tone in upper extremities, cogwheeling. Deep tendon reflexes, 2+ upper extremities and knees, absent ankle jerks. No response to plantar stimulation bilaterally. Severe nuchal rigidity still present Results/Medications Result Diagram: 01/28/1715 01/28/1715 Results 24 hrs Laboratory Tests Test 01/28/17 01:40 01/28/17 04:45 01/28/17 05:15 01/28/17 05:19 Bedside Glucose 157 163 155 White Blood Count 11.8 H Red Blood Count 3.64 L Hemoglobin 9.8 L Hematocrit 27.8 L Mean Corpuscular Volume 76.4 L Mean Corpuscular Hemoglobin 26.9 L Mean Corpuscular Hemoglobin Concent 35.3 Red Cell Distribution Width 18.6 H Platelet Count 169 Mean Platelet Volume 10.7 H Neutrophils % 73.9 Lymphocytes % 8.1 L Monocytes % 14.0 H Eosinophils % 1.2 Basophils % 0.3 Nucleated Red Blood Cells % 0.4 H Neutrophils # 8.7 H Lymphocytes # 1.0 Monocytes # 1.7 H Eosinophils # 0.1 Basophils # 0.0 Nucleated Red Blood Cells # 0.1 H Sodium Level 143 Potassium Level 4.6 Chloride Level 108 Carbon Dioxide Level 27 Anion Gap 13 Blood Urea Nitrogen 115 #H Creatinine 4.10 H Glucose Level 171 Calcium Level 9.0 Phosphorus Level 5.0 H Magnesium Level 3.0 H Test 01/28/17 09:36 01/28/17 12:09 01/28/17 16:16 01/28/17 20:05 Bedside Glucose 147 137 170 177 Medications Current Medications Ondansetron HCl (Zofran Inj) 4 mg Q6H PRN IV NAUSEA AND/OR VOMITING; Start 01/17 at 14:30 Morphine Sulfate (morphine) 2 mg Q4H PRN IV SEVERE PAIN LEVEL 7-10 Last administered on 01/27/17 14:25; Admin Dose 2 MG; Start 01/17/17 at 14:30 Docusate Sodium (Colace) 100 mg Q12H PRN PO CONSTIPATION; Start 01/17/17 at 14: 30 Febuxostat (Uloric) 40 mg DAILY PO Last administered on 01/28/17 09:52; Admin Dose 40 MG; Start 01/18/17 at 09:00 Diphenhydramine HCl (Benadryl) 25 mg Q4H PRN IV CHILLS; Start 01/17/17 at 18:30 Diltiazem HCl (Cardizem Cd) 240 mg DAILY PO Last administered on 01/28/17 09: 53; Admin Dose 240 MG; Start 01/17/17 at 18:30 Nicotine 1 patch 1 patch DAILY TRANSDERM Last administered on 01/28/17 09:52; Admin Dose 1 PATCH; Start 01/18/17 at 10:30 Acetaminophen (Ofirmev 1000mg/ 100ml Iv) 100 ml @ 400 mls/hr Q4 PRN IVPB FEVER GREATER THAN 100.6 Last administered on 01/23/17 14:09; Admin Dose 400 MLS /HR; Start 01/19/17 at 00:30 Hydralazine HCl (Apresoline) 10 mg Q4H PRN IV hypertension Last administered on 01/27/17 22:20; Admin Dose 10 MG; Start 01/19/17 at 01:00 Labetalol HCl (Labetalol) 20 mg Q3 PRN IV ELEVATED BLOOD PRESSURE Last administered on 01/27/17 11:12; Admin Dose 20 MG; Start 01/19/17 at 02:30 Labetalol HCl (Labetalol) 10 mg Q3 PRN IV ELEVATED BLOOD PRESSURE Last administered on 01/27/17 02:04; Admin Dose 10 MG; Start 01/19/17 at 02:30 Diagnostic Test (Pha) (Accu-Chek) 1 ea 02 XX Last administered on 01/27/17 02: 01; Admin Dose 1 EA; Start 01/20/17 at 02:00 Insulin Aspart (Novolog Insulin Pen) NOVOLOG *MILD* ALGORI... Q4 SC Last administered on 01/28/17 20:10; Admin Dose 1 UNIT; Start 01/19/17 at 09:00 Miscellaneous Information 1 ea NOTE XX ; Start 01/19/17 at 09:00 Glucose (Glutose) 15 gm Q15M PRN PO DECREASED GLUCOSE; Start 01/19/17 at 09:00 Glucose (Glutose) 22.5 gm Q15M PRN PO DECREASED GLUCOSE; Start 01/19/17 at 09:00 Dextrose (D50w Syringe) 25 ml Q15M PRN IV DECREASED GLUCOSE; Start 01/19/17 at 09:00 Dextrose (D50w Syringe) 50 ml Q15M PRN IV DECREASED GLUCOSE; Start 01/19/17 at 09:00 Glucagon (Glucagen) 1 mg Q15M PRN IM DECREASED GLUCOSE; Start 01/19/17 at 09:00 Glucose (Glutose) 15 gm Q15M PRN BUCCAL DECREASED GLUCOSE; Start 01/19/17 at 09: 00 IV Flush (NS 10 ml) 10 ml PRN PRN IV FLUSH LINE; Start 01/19/17 at 12:00 Diphenhydramine HCl (Benadryl Liquid Cup) 25 mg QHS PRN NGT ITCHING; Start 01/19 at 21:00 Hydralazine HCl (Apresoline) 25 mg Q4H PRN NGT hypertension Last administered on 01/25/17 12:17; Admin Dose 25 MG; Start 01/19/17 at 20:30 Acetaminophen/ Hydrocodone Bitart ([place] (5/325)) 1 tab Q6H PRN NGT MODERATE PAIN LEVEL 4-6; Start 01/20/17 at 02:30 Loratadine (Claritin) 10 mg DAILY NGT Last administered on 01/28/17 09:52; Admin Dose 10 MG; Start 01/20/17 at 09:00 Magnesium Hydroxide (Milk Of Mag) 30 ml DAILY PRN NGT CONSTIPATION; Start at 20:30 Acetaminophen (Tylenol Liquid) 1,000 mg Q4H PRN NGT PAIN AND OR ELEVATED TEMP; Start 01/19/17 at 20:30; Status Future Hold Docusate Sodium (Colace Liquid Cup) 100 mg TID NGT Last administered on 20:07; Admin Dose 100 MG; Start 01/19/17 at 21:00 Lorazepam 2 mg 2 mg Q6H PRN IV before LP and MRI Last administered on 01/23/17 11:28; Admin Dose 2 MG; Start 01/20/17 at 00:00 Fentanyl (Sublimaze) 100 ml @ 2.5 mls/hr TITRATE IV Last administered on 17:54; Admin Dose 2.5 MLS/HR; Start 01/20/17 at 10:00 Lansoprazole 30 mg 30 mg DAILY@06 NGT Last administered on 01/28/17 06:43; Admin Dose 30 MG; Start 01/21/17 at 06:00 Norepinephrine 16 mg/Dextrose 500 ml @ 1.87 mls/hr TITRATE IV ; Start 01/20/17 at 17:30 Midazolam HCl (Versed) 50 ml @ 1 mls/hr TITRATE IV Last administered on 16:22; Admin Dose 2 MLS/HR; Start 01/23/17 at 09:30 Heparin Sodium (Porcine) (Heparin (5000 Units/0.5 ml)) 5,000 unit BID SC Last administered on 01/28/17 20:09; Admin Dose 5,000 UNIT; Start 01/24/17 at 21:00 Insulin Glargine (Lantus) 10 unit DAILY@08 SC Last administered on 01/28/17 09 :55; Admin Dose 10 UNIT; Start 01/25/17 at 14:30 Hydralazine HCl (Apresoline) 50 mg TID NGT Last administered on 01/28/17 20:08 ; Admin Dose 50 MG; Start 01/26/17 at 21:00 Metoprolol Tartrate 100 mg 100 mg BID NGT Last administered on 01/28/17 20:07 ; Admin Dose 100 MG; Start 01/26/17 at 21:00 Sodium Chloride 1,000 ml @ 0 mls/hr Q0M IV Last administered on 01/27/17 07: 00; Admin Dose 10 MLS/HR; Start 01/27/17 at 12:00 Sodium Chloride (NS) 1,000 ml @ 60 mls/hr [id number] IV Last administered on 01/28 15:07; Admin Dose 60 MLS/HR; Start 01/28/17 at 15:00 Assessment/Plan Chief Complaint/Hosp Course IMPRESSION: A 66-year-old gentleman who presented on 01-17-17 with several days of fevers and generalized weakness, dizziness, a few episodes of nausea, transient shoulder pain. Patient is immunosuppressed and in the hospital,he developed mental status changes, became confused, and complained of diplopia; has also developed noticeable nuchal rigidity, stridor, has to be intubated. Continues to be very encephalopathic, had transient tremor and myoclonus. 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 First LP: HSV PCR was negative, off acyclovir, bacterial and fungal work up negative. West Nile serology was sent out, negative per lab I called earlier today.EEG c/w encephalopathy. S/p IVIG, had very low IG Repeat LP 01-27-17, elevated OP 28, elevated protein 260, WBC 56, lymphocytes, gram stain, patricia ink negative; sendouts pending. MRI brain 01-28-17 c/w cerebelitis, no mass effect. Continue current Tx. Problems: LALO MONACO MD Jan 28, 2017 22:10
[2017-01-29] VITALS (64 sets, daily range): BP systolic 82–151; BP diastolic 49–83; PULSE 57–77; RESP 15–29
[2017-01-29] MEDS: MIDAZOLAM (DRIP) 50 mg/50 mL 50 ML IV SCH ×4 (00:38→17:57)
[2017-01-29] MEDS: INSULIN ASPART [NOVOLOG] 3 ML PEN SC SCH ×6 (00:52→21:00)
[2017-01-29] MEDS: ACCU-CHEK XX SCH (01:02)
[2017-01-29 04:59] LABS: ABNORMAL IP MESSAGE 1; BASOPHILS % 0.4 % (0.0-2.0); EOSINOPHILS # 0.6 10^3/ul (0.0-0.5); EOSINOPHILS % 5.7 % (0.0-7.0); HEMATOCRIT 25.4 % (42.0-52.0); HEMOGLOBIN 8.6 g/dl (14.0-18.0); LYMPHOCYTES % 8.7 % (15.0-51.0); MEAN CORPUSCULAR HEMOGLOBIN 26.5 pg (29.0-33.0); MEAN CORPUSCULAR HGB CONC 33.9 g/dl (32.0-37.0); MEAN CORPUSCULAR VOLUME 78.4 fl (82.0-101.0); MEAN PLATELET VOLUME 11.1 fl (7.4-10.4); MONOCYTE # 1.4 10^3/ul (0.3-0.9); MONOCYTES % 12.4 % (0.0-11.0); NEUTROPHIL # 7.7 10^3/ul (1.6-7.5); NEUTROPHILS % 70.4 % (39.0-77.0); NUCLEATED RED BLOOD CELLS # 0.1 10^3/ul (0.0-0.0); NUCLEATED RED BLOOD CELLS% 0.5 /100WBC (0.0-0.0); PLATELET COUNT 145 10^3/UL (140-415); POSITIVE DIFF @See below; RED BLOOD COUNT 3.24 10^6/ul (4.70-6.10); RED CELL DISTRIBUTION WIDTH 19.5 % (11.5-14.5)
[2017-01-29 05:26] LABS: ALBUMIN 2.8 g/dl (3.3-4.9); TOTAL PROTEIN 6.7 g/dl (6.1-8.1)
[2017-01-29] MEDS: LANSOPRAZOLE 30 MG CAP NGT SCH (05:28)
[2017-01-29] MEDS: SOD CHLORIDE 0.9% 1,000 ML IV SCH (05:29)
[2017-01-29] MEDS: FENTAnyl (DRIP) 1000 mcg/100mL 100 ML IV SCH ×2 (05:29→16:54)
[2017-01-29 05:45] LABS: CALCIUM 8.5 mg/dl (8.4-10.2); CREATININE 4.6 mg/dl (0.61-1.24); MAGNESIUM 3.1 mg/dl (1.7-2.5); PHOSPHORUS 4.6 mg/dl (2.5-4.9)
--- NOTE | 2017-01-29 08:49 | CONS ---
Date/Time of Note Date/Time of Note DATE: 01/29/17 TIME: 08:45 Assessment/Plan Assessment/Plan Additional Assessment/Plan Data setting; AC of 14, tidal volume 400, PEEP of 5, 40% FiO2. Patient currently on Versed 8 mg/h, fentanyl 50 mics per hour. Assessment and recommendations; 1. Patient admitted with meningoencephalitis leading to respiratory failure. No clinical improvement since admission. Continue current supportive care. Prognosis is very guarded. Consultation Date/Type/Reason Admit Date/Time Jan 17, 2017 at 17:33 Type of Consultation: Pulmonary/critical care 24 HR Interval Summary Free Text/Dictation Patient condition remains critical. Remains completely unresponsive off sedation. Patient had to be sedated for episodes of tachypnea . Underwent MRI of the brain yesterday which is showing cerebral edema. General exam; elderly male, orally intubated, sedated. Currently in no distress. Exam/Review of Systems Vital Signs Vitals Vital Signs Date Time Temp Pulse Resp B/P Pulse Ox O2 Delivery O2 Flow Rate FiO2 01/29/17 07:30 97.5 66 19 128/75 100 Mechanical Ventilator 01/29/17 05:28 40 Intake and Output 01/28/17 01/28/17 01/29/17 15:00 23:00 07:00 Intake Total 496 ml 2045.5 ml 1008 ml Output Total 315 ml 357 ml 334 ml Balance 181 ml 1688.5 ml 674 ml Exam HEENT exam; has a stiff neck. Orally intubated. Pupils are small bilaterally. No neck masses. Chest exam; diminished but clear breath sounds. S1-S2 audible, no murmurs. Regular rhythm. Abdomen exam; soft, no organomegaly. Bowel sounds audible. Extremity exam; trace peripheral edema. Patient has a multiple ecchymosis involving all 4 extremities. Pulses 1+ bilaterally. 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 Results Result Diagram: 01/29/17 0420 01/29/17 0420 Results 24 hrs Laboratory Tests Test 01/28/17 09:36 01/28/17 12:09 01/28/17 16:16 01/28/17 20:05 Bedside Glucose 147 137 170 177 Test 01/29/17 00:41 01/29/17 04:20 01/29/17 04:28 Bedside Glucose 153 121 White Blood Count 11.0 H Red Blood Count 3.24 L Hemoglobin 8.6 L Hematocrit 25.4 L Mean Corpuscular Volume 78.4 L Mean Corpuscular Hemoglobin 26.5 L Mean Corpuscular Hemoglobin Concent 33.9 Red Cell Distribution Width 19.5 H Platelet Count 145 Mean Platelet Volume 11.1 H Neutrophils % 70.4 Lymphocytes % 8.7 L Monocytes % 12.4 H Eosinophils % 5.7 Basophils % 0.4 Nucleated Red Blood Cells % 0.5 H Neutrophils # 7.7 H Lymphocytes # 1.0 Monocytes # 1.4 H Eosinophils # 0.6 H Basophils # 0.0 Nucleated Red Blood Cells # 0.1 H Sodium Level 147 H Potassium Level 4.0 Chloride Level 116 H Carbon Dioxide Level 24 Anion Gap 11 Blood Urea Nitrogen 119 H Creatinine 4.60 H Glucose Level 122 # Calcium Level 8.5 Phosphorus Level 4.6 Magnesium Level 3.1 H Total Bilirubin 0.0 L Direct Bilirubin 0.00 Indirect Bilirubin 0.0 Aspartate Amino Transf (AST/SGOT) 114 H Alanine Aminotransferase (ALT/SGPT) 145 H Alkaline Phosphatase 178 H Total Protein 6.7 Albumin 2.8 L Medications Medications Current Medications Ondansetron HCl (Zofran Inj) 4 mg Q6H PRN IV NAUSEA AND/OR VOMITING; Start 01/17 at 14:30 Morphine Sulfate (morphine) 2 mg Q4H PRN IV SEVERE PAIN LEVEL 7-10 Last administered on 01/27/17 14:25; Admin Dose 2 MG; Start 01/17/17 at 14:30 Docusate Sodium (Colace) 100 mg Q12H PRN PO CONSTIPATION; Start 01/17/17 at 14: 30 Febuxostat (Uloric) 40 mg DAILY PO Last administered on 01/28/17 09:52; Admin Dose 40 MG; Start 01/18/17 at 09:00 Diphenhydramine HCl (Benadryl) 25 mg Q4H PRN IV CHILLS; Start 01/17/17 at 18:30 Diltiazem HCl (Cardizem Cd) 240 mg DAILY PO Last administered on 01/28/17 09: 53; Admin Dose 240 MG; Start 01/17/17 at 18:30 Nicotine 1 patch 1 patch DAILY TRANSDERM Last administered on 01/28/17 09:52; Admin Dose 1 PATCH; Start 01/18/17 at 10:30 Acetaminophen (Ofirmev 1000mg/ 100ml Iv) 100 ml @ 400 mls/hr Q4 PRN IVPB FEVER GREATER THAN 100.6 Last administered on 01/23/17 14:09; Admin Dose 400 MLS /HR; Start 01/19/17 at 00:30 Hydralazine HCl (Apresoline) 10 mg Q4H PRN IV hypertension Last administered on 01/27/17 22:20; Admin Dose 10 MG; Start 01/19/17 at 01:00 Labetalol HCl (Labetalol) 20 mg Q3 PRN IV ELEVATED BLOOD PRESSURE Last administered on 01/27/17 11:12; Admin Dose 20 MG; Start 01/19/17 at 02:30 Labetalol HCl (Labetalol) 10 mg Q3 PRN IV ELEVATED BLOOD PRESSURE Last administered on 01/27/17 02:04; Admin Dose 10 MG; Start 01/19/17 at 02:30 Diagnostic Test (Pha) (Accu-Chek) 1 ea 02 XX Last administered on 01/27/17 02: 01; Admin Dose 1 EA; Start 01/20/17 at 02:00 Insulin Aspart (Novolog Insulin Pen) NOVOLOG *MILD* ALGORI... Q4 SC Last administered on 01/29/17 00:52; Admin Dose 1 UNIT; Start 01/19/17 at 09:00 Miscellaneous Information 1 ea NOTE XX ; Start 01/19/17 at 09:00 Glucose (Glutose) 15 gm Q15M PRN PO DECREASED GLUCOSE; Start 01/19/17 at 09:00 Glucose (Glutose) 22.5 gm Q15M PRN PO DECREASED GLUCOSE; Start 01/19/17 at 09:00 Dextrose (D50w Syringe) 25 ml Q15M PRN IV DECREASED GLUCOSE; Start 01/19/17 at 09:00 Dextrose (D50w Syringe) 50 ml Q15M PRN IV DECREASED GLUCOSE; Start 01/19/17 at 09:00 Glucagon (Glucagen) 1 mg Q15M PRN IM DECREASED GLUCOSE; Start 01/19/17 at 09:00 Glucose (Glutose) 15 gm Q15M PRN BUCCAL DECREASED GLUCOSE; Start 01/19/17 at 09: 00 IV Flush (NS 10 ml) 10 ml PRN PRN IV FLUSH LINE; Start 01/19/17 at 12:00 Diphenhydramine HCl (Benadryl Liquid Cup) 25 mg QHS PRN NGT ITCHING; Start 01/19 at 21:00 Hydralazine HCl (Apresoline) 25 mg Q4H PRN NGT hypertension Last administered on 01/25/17 12:17; Admin Dose 25 MG; Start 01/19/17 at 20:30 Acetaminophen/ Hydrocodone Bitart ([place] (5/325)) 1 tab Q6H PRN NGT MODERATE PAIN LEVEL 4-6; Start 01/20/17 at 02:30 Loratadine (Claritin) 10 mg DAILY NGT Last administered on 01/28/17 09:52; Admin Dose 10 MG; Start 01/20/17 at 09:00 Magnesium Hydroxide (Milk Of Mag) 30 ml DAILY PRN NGT CONSTIPATION; Start at 20:30 Acetaminophen (Tylenol Liquid) 1,000 mg Q4H PRN NGT PAIN AND OR ELEVATED TEMP; Start 01/19/17 at 20:30; Status Future Hold Docusate Sodium (Colace Liquid Cup) 100 mg TID NGT Last administered on 20:07; Admin Dose 100 MG; Start 01/19/17 at 21:00 Lorazepam 2 mg 2 mg Q6H PRN IV before LP and MRI Last administered on 01/23/17 11:28; Admin Dose 2 MG; Start 01/20/17 at 00:00 Fentanyl (Sublimaze) 100 ml @ 2.5 mls/hr TITRATE IV Last administered on 05:29; Admin Dose 8 MLS/HR; Start 01/20/17 at 10:00 Lansoprazole 30 mg 30 mg DAILY@06 NGT Last administered on 01/29/17 05:28; Admin Dose 30 MG; Start 01/21/17 at 06:00 Norepinephrine 16 mg/Dextrose 500 ml @ 1.87 mls/hr TITRATE IV ; Start 01/20/17 at 17:30 Midazolam HCl (Versed) 50 ml @ 1 mls/hr TITRATE IV Last administered on 05:30; Admin Dose 8 MLS/HR; Start 01/23/17 at 09:30 Heparin Sodium (Porcine) (Heparin (5000 Units/0.5 ml)) 5,000 unit BID SC Last administered on 01/28/17 20:09; Admin Dose 5,000 UNIT; Start 01/24/17 at 21:00 Insulin Glargine (Lantus) 10 unit DAILY@08 SC Last administered on 01/28/17 09 :55; Admin Dose 10 UNIT; Start 01/25/17 at 14:30 Hydralazine HCl (Apresoline) 50 mg TID NGT Last administered on 01/28/17 20:08 ; Admin Dose 50 MG; Start 01/26/17 at 21:00 Metoprolol Tartrate 100 mg 100 mg BID NGT Last administered on 01/28/17 20:07 ; Admin Dose 100 MG; Start 01/26/17 at 21:00 Sodium Chloride 1,000 ml @ 0 mls/hr Q0M IV Last administered on 01/27/17 07: 00; Admin Dose 10 MLS/HR; Start 01/27/17 at 12:00 Sodium Chloride (NS) 1,000 ml @ 60 mls/hr [id number] IV Last administered on 01/29 05:29; Admin Dose 60 MLS/HR; Start 01/28/17 at 15:00 RATNA MORENO Jan 29, 2017 08:49
[2017-01-29] MEDS: FEBUXOSTAT 40 MG TABLET PO SCH (08:51)
[2017-01-29] MEDS: DILTIAZEM (CD) 240 MG CAP PO SCH (08:51)
[2017-01-29] MEDS: DOCUSATE SODIUM 10 MG/ML (10ML CUP) NGT SCH ×3 (08:51→21:00)
[2017-01-29] MEDS: METOPROLOL 100 MG TAB NGT SCH ×2 (08:52→21:00)
[2017-01-29] MEDS: LORATADINE 10 MG TAB NGT SCH (08:52)
[2017-01-29] MEDS: INSULIN GLARGINE [LANtus] 3 ML PEN SC SCH (08:54)
[2017-01-29] MEDS: HEPARIN 5,000 UNIT/0.5 ML VIAL SC SCH ×2 (08:55→21:07)
[2017-01-29] MEDS: NICOTINE (14 MG/24 HR) PATCH TRANSDERM SCH (08:56)
--- NOTE | 2017-01-29 10:35 | PN ---
DATE: 01/29/2017 SUBJECTIVE DATA: The patient remains stable, afebrile. No significant change in mental status. No hemoptysis, hematemesis, hematochezia. Urinary output has been adequate. Please note, I did speak yesterday with Dr. Guadalupe about the possibility of initiating hemodialysis if renal function does not stabilize. OBJECTIVE DATA: VITAL SIGNS: Blood pressure is 135/77, respirations 17, pulse 65, temperature 98.4. INTAKE AND OUTPUT: The patient had 3 L in, 1 L out. HEENT: Head is normocephalic. NECK: Supple. HEART: Regular rate. LUNGS: Show diminished breath sounds at the base. ABDOMEN: Soft. Nontender to palpation. No rebound or guarding. EXTREMITIES: Negative for clubbing, cyanosis. No edema. DERMATOLOGIC: No rashes. MUSCULOSKELETAL: No joint effusion. NEUROLOGIC: No change in exam. LABORATORY DATA: Sodium 147, potassium 4.0, chloride 116, BUN 119, creatinine 4.60, magnesium 2.1. White count 11.9, hemoglobin 8.6, hematocrit 25.0, platelet count 145,000. IMAGING: Studies were reviewed. Chest x-ray was reviewed. ASSESSMENT AND PLAN: 1. Nonoliguric acute kidney injury on top of chronic kidney disease with previous baseline creatinine of 1.7 to 2.0 mg/dL. Etiology of acute kidney injury secondary to acute tubular necrosis due to multifocal disorder etiologies, including sepsis, hemodynamics fluctuations. The patient was given a fluid challenge yesterday without any significant improvement. At this point, given continued decline of renal function, would recommend a course of hemodialysis. I will discuss the case with primary care physician and Dr. Guadalupe. If they agree, will initiate hemodialysis. 2. Anemia. Continue to monitor H and H levels. 3. Mineral bone disorder. Monitor calcium, phosphorus levels. 4. Hypermagnesemia secondary to acute kidney injury. Continue to monitor. 5. Severe sepsis secondary to encephalitis. Continue current antimicrobial antibiotic therapy. 6. History of Abbi granulomatosis, status post Rituxan. Continue follow up with Oncology. 7. Gastrointestinal and deep venous thrombosis prophylaxis. Continue PPI and sequential leg squeezes. 8. Ventilatory-dependent respiratory failure. Vent settings and ABGs reviewed. Follow up with Pulmonary. 9. Encephalopathy. 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 Will defer to Neurology for further management. The patient is status post IVIG. Possibility of West Nile still a consideration. Dictated By: Jim Sierra DO /[email or web address] /Document#: [id number]
--- NOTE | 2017-01-29 12:33 | OPR ---
DATE OF OPERATION: 01/29/2017 SURGEON: Natan Holder MD PREOPERATIVE DIAGNOSIS: Renal failure. POSTOPERATIVE DIAGNOSIS: Renal failure. OPERATION PERFORMED: Right femoral dialysis catheter placement. ANESTHESIA: Local. INDICATION: The risks, benefits, complications, and alternatives therapies were explained to the patient and the family. Consent obtained. OPERATIVE PROCEDURE: The patient is placed in supine position, prepped and draped in usual sterile fashion. 1 percent lidocaine was used throughout the operation for local anesthesia. A time- out was called. I started, access was gained in the right common femoral vein. Guide wire was advanced through without any difficulty. Subcutaneous tissues were dilated. A 20 cm dialysis catheter advanced over guide wire, secured to skin using silk sutures. Both ports of the catheter were aspirated and injected using saline solution. Patient tolerated procedure well. Dictated By: Natan Holder MD /[email or web address] /Document#: [id number]
[2017-01-29 16:06] LABS: MICROALBUMIN 132.3 mg/dL
--- NOTE | 2017-01-29 22:33 | PN ---
DATE: 01/29/2017 SUBJECTIVE DATA: Patient remains unchanged. Afebrile. Intubated, sedated and in no distress. VITAL SIGNS: Temperature 97.7, pulse 61, respirations 23, blood pressure 116/66, saturation 100 on vent. WBC 11, H and H 8.6 and 25.4, platelets 145,000, neutrophils 70.4. Sodium 147, BUN 119, creatinine 4.60. INDWELLINGS: Endotracheal tube, NG tube, Darden, left upper extremity PICC line, right femoral Jesus Manuel catheter placed this morning. PHYSICAL EXAMINATION: GENERAL: This is a well-developed, fragile, elderly man, who is intubated, sedated, in no distress. HEENT: Head atraumatic, normocephalic. Sclerae anicteric. Buccal mucosa dry. NECK: Supple. Trachea midline. CHEST: Rise symmetrical. Breath sounds diminished at the bases. HEART: S1, S2. ABDOMEN: Soft, bowel sounds present. EXTREMITIES: Without cyanosis. ASSESSMENT: 1. Acute encephalopathy likely secondary to viral meningoencephalitis, status post lumbar puncture done twice with cerebrospinal fluid cultures and Gram stain being negative, Guerda ink negative. Herpes simplex virus by polymerase chain reaction negative. Cocci negative. West Nile virus negative, patient completed treatment with broad-spectrum antibiotics since admission for possible bacterial meningitis. 2. Acute on chronic kidney disease, worsening. 3. 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 4. Hypertension. 5. History of early lung cancer in the past, no active issues 6. Acute respiratory failure secondary to encephalopathy. PLAN: Patient remains unchanged, not improving. His renal function is getting worse and plan to start him on hemodialysis. He is being seen by multiple consultants, had been afebrile. We will continue observing him off antibiotics. Repeat cultures p.r.n. Dictated By: Giancarlo Hodges NP /eladio/alyssia /Document#: [id number] LORNE
[2017-01-30] VITALS (40 sets, daily range): BP systolic 113–147; BP diastolic 63–89; PULSE 64–91; RESP 16–27
[2017-01-30] MEDS: MIDAZOLAM (DRIP) 50 mg/50 mL 50 ML IV SCH (00:13)
[2017-01-30] MEDS: INSULIN ASPART [NOVOLOG] 3 ML PEN SC SCH ×6 (01:01→21:49)
[2017-01-30] MEDS: ACCU-CHEK XX SCH (02:00)
--- NOTE | 2017-01-30 03:17 | PN ---
DATE: 01/29/2017 SUBJECTIVE: The patient was seen status post left femoral Jesus Manuel catheter placement for dialysis. The patient is now status post hemodialysis for this patient. The labs that did confirm uremia and overall patient kidney function has worsened despite fluid challenge. The patient remains on low dose Versed and remains encephalopathic. Unfortunately, MRI done yesterday shows cerebellar encephalitis. OBJECTIVE: VITALS: Temperature 97.9, pulse 74, respirations 24, blood pressure 142/81, saturation 100 percent on 40 percent FiO2. GENERAL: The patient is slightly sedated. The patient is not responsive to verbal stimuli or to verbal command. HEENT: The patient is pale. The pupils are round and reactive. HEART: S1, S2. LUNGS: Clear. ABDOMEN: Soft and nontender. EXTREMITIES: Upper extremities trace to +1 edema. Lower extremity trace edema. LABS: White count is 11, hemoglobin 8.6. There is slight drop in H and H. hematocrit 25, platelet count 145, neutrophil count of 70, lymphocytes 9 percent, monocytes 12 percent. Chemistry: Sodium 147, potassium 4.0 chloride 116, bicarb 24. BUN 119, creatinine 4.6, and glucose 122. So far, CSF serology is nondiagnostic. No positive findings to explain his encephalopathy so far. MEDICATIONS: 1. Normal saline at 60 mL/hour. 2. Hydralazine 50 mg t.i.d. 3. Lopressor 100 b.i.d. 4. Lantus 10 units daily. 5. Heparin 5000 units b.i.d. 6. Midazolam p.r.n. 7. Prevacid 30 mg daily. 8. Fentanyl p.r.n. 9. Colon p.r.n. 10. Accu-Chek before meals and at bedtime. 11. Ativan p.r.n. 12. Benadryl p.r.n. 13. Colace 100 t.i.d. 14. Hydralazine p.r.n. 15. Milk of magnesia p.r.n. 16. Hypoglycemia protocol. 17. Uloric 40 mg daily. 18. Zofran p.r.n. 19. Morphine p.r.n. 20. Colace p.r.n. ASSESSMENT AND PLAN: This is an unfortunate 66-year-old, male, with history of Abbi granulomatosis on Rituxan, chronic kidney disease, nicotine dependency, hypertension, who presented with 1-week fever, chills, generalized weakness and decreased p.o. intake. Was found to have progressively worsening encephalopathy requiring mechanical ventilation. 1. Respiratory. Continue on AC mode in a patient who is encephalopathic. Not a candidate for weaning; may need a trach and a G-tube placement soon. 2. Cardiovascular. Vitals are more stable. Continue blood pressure medications. Continue heparin for deep venous thrombosis prophylaxis. 3. Renal. The patient with worsening kidney function, despite fluid hydration. Cause is likely multifactorial and secondary to overall declining organ failure, now on dialysis. Continue to monitor. 4. Currently off antibiotics or antivirals. 5. Encephalopathy. 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 6. Hyperglycemia. Continue Lantus and insulin sliding scale. 7. Continue Protonix for gastrointestinal prophylaxis. 8. Worsening anemia, may need a transfusion. Will monitor hemoglobin and hematocrit closely. 9. History of Abbi granulomatosis. Appreciate Rheumatology follow-up. CONDITION: Remains guarded. DISPOSITION: Continue to follow up CSF serologies. We will follow. Dictated By: Gurwinder Triplett MD /eladio/sher /Document#: [id number]
[2017-01-30 05:09] LABS: ABNORMAL IP MESSAGE 1; BASOPHIL # 0.1 10^3/ul (0.0-0.1); BASOPHILS % 0.5 % (0.0-2.0); EOSINOPHILS # 0.5 10^3/ul (0.0-0.5); EOSINOPHILS % 4.4 % (0.0-7.0); HEMOGLOBIN 8.8 g/dl (14.0-18.0); LYMPHOCYTES # 1.3 10^3/ul (0.8-2.9); LYMPHOCYTES % 11.6 % (15.0-51.0); MEAN CORPUSCULAR HEMOGLOBIN 26.7 pg (29.0-33.0); MEAN CORPUSCULAR HGB CONC 33.8 g/dl (32.0-37.0); MONOCYTE # 1.4 10^3/ul (0.3-0.9); MONOCYTES % 11.9 % (0.0-11.0); NEUTROPHIL # 7.9 10^3/ul (1.6-7.5); NEUTROPHILS % 68.4 % (39.0-77.0); NUCLEATED RED BLOOD CELLS # 0.2 10^3/ul (0.0-0.0); NUCLEATED RED BLOOD CELLS% 1.6 /100WBC (0.0-0.0); PLATELET COUNT 114 10^3/UL (140-415); POSITIVE DIFF @See below; RED BLOOD COUNT 3.29 10^6/ul (4.70-6.10); RED CELL DISTRIBUTION WIDTH 19.9 % (11.5-14.5); WHITE BLOOD COUNT 11.6 10^3/ul (4.8-10.8)
[2017-01-30] MEDS: LANSOPRAZOLE 30 MG CAP NGT SCH (05:50)
[2017-01-30 06:04] LABS: CALCIUM 8.9 mg/dl (8.4-10.2); CREATININE 3.16 mg/dl (0.61-1.24); MAGNESIUM 2.6 mg/dl (1.7-2.5); PHOSPHORUS 3.9 mg/dl (2.5-4.9); POTASSIUM 3.7 mmol/L (3.5-5.1)
[2017-01-30] MEDS: FENTAnyl (DRIP) 1000 mcg/100mL 100 ML IV SCH (06:48)
[2017-01-30] MEDS: HEPARIN 5,000 UNIT/0.5 ML VIAL SC SCH ×2 (09:00→21:48)
[2017-01-30] MEDS: DOCUSATE SODIUM 10 MG/ML (10ML CUP) NGT SCH ×3 (09:10→21:47)
[2017-01-30] MEDS: NICOTINE (14 MG/24 HR) PATCH TRANSDERM SCH (09:10)
[2017-01-30] MEDS: FEBUXOSTAT 40 MG TABLET PO SCH (09:11)
[2017-01-30] MEDS: DILTIAZEM (CD) 240 MG CAP PO SCH (09:11)
[2017-01-30] MEDS: METOPROLOL 100 MG TAB NGT SCH ×2 (09:13→21:47)
[2017-01-30] MEDS: INSULIN GLARGINE [LANtus] 3 ML PEN SC SCH (09:14)
--- NOTE | 2017-01-30 09:49 | PN ---
Date/Time of Note Date/Time of Note DATE: 01/30/17 TIME: 09:46 Assessment/Plan VTE Prophylaxis VTE Prophylaxis Intervention: other Lines/Catheters IV Catheter Type (from Nrs): Jesus Manuel Catheter Central line still needed: Yes Urinary Cath still in place: Yes Reason Cath still needed: urinary retention Assessment/Plan Chief Complaint/Hosp Course renal follow up SUBJECTIVE DATA: The patient remains stable, afebrile. No significant change in mental status. No hemoptysis, hematemesis, hematochezia, new rash, fever, chills, diaphoresis s/p HD for acute renal failure d/w Dr Sierra OBJECTIVE DATA: HEENT: Head is normocephalic. NECK: Supple. HEART: Regular rate. LUNGS: Show diminished breath sounds at the base. ABDOMEN: Soft. Nontender to palpation. No rebound or guarding. EXTREMITIES: Negative for clubbing, cyanosis. No edema. DERMATOLOGIC: No rashes. MUSCULOSKELETAL: No joint effusion. NEUROLOGIC: No change in exam. IMAGING: Studies were reviewed. Chest x-ray was reviewed. ASSESSMENT AND PLAN: 1. Nonoliguric acute kidney injury on top of chronic kidney disease with previous baseline creatinine of 1.7 to 2.0 mg/dL. Etiology of acute kidney injury secondary to acute tubular necrosis due to multifocal disorder etiologies, including sepsis, hemodynamics fluctuations. given continued decline of renal function, he was started on hemodialysis. will evaluate daily for his dialytic needs 2. Anemia. Continue to monitor H and H levels. 3. Mineral bone disorder. Monitor calcium, phosphorus levels. 4. Hypermagnesemia secondary to acute kidney injury. Continue to monitor. 5. Severe sepsis secondary to encephalitis. Continue current antimicrobial antibiotic therapy. 6. History of Abbi granulomatosis, status post Rituxan. Continue follow up with Oncology. 7. Gastrointestinal and deep venous thrombosis prophylaxis. Continue PPI and sequential leg squeezes. 8. Ventilatory-dependent respiratory failure. Vent settings and ABGs reviewed. Follow up with Pulmonary. 9. Encephalopathy. 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 Will defer to Neurology for further management. The patient is status post IVIG. Possibility of West Nile still a consideration. Problems: Exam/Review of Systems Vital Signs Vitals Vital Signs Date Time Temp Pulse Resp B/P Pulse Ox O2 Delivery O2 Flow Rate FiO2 01/30/17 06:00 77 18 141/80 100 Mechanical Ventilator 01/30/17 05:14 40 01/30/17 04:00 99.2 Intake and Output 01/29/17 01/29/17 01/30/17 15:00 23:00 07:00 Intake Total 1108 ml 1300 ml 633 ml Output Total 516 ml 683 ml 367 ml Balance 592 ml 617 ml 266 ml Results Result Diagram: 01/30/17 0430 01/30/17 0430 Results 24 hrs Laboratory Tests Test 01/29/17 11:30 01/29/17 12:24 01/29/17 16:49 01/29/17 21:03 Urine Random Creatinine 48.30 Urine Random Sodium 45 Urine Total Protein 300.0 H Bedside Glucose 151 187 109 Test 01/30/17 00:58 01/30/17 04:30 01/30/17 05:45 01/30/17 08:57 Bedside Glucose 160 169 172 White Blood Count 11.6 H Red Blood Count 3.29 L Hemoglobin 8.8 L Hematocrit 26.0 L Mean Corpuscular Volume 79.0 L Mean Corpuscular Hemoglobin 26.7 L Mean Corpuscular Hemoglobin Concent 33.8 Red Cell Distribution Width 19.9 H Platelet Count 114 #L Mean Platelet Volume Neutrophils % 68.4 Lymphocytes % 11.6 L Monocytes % 11.9 H Eosinophils % 4.4 Basophils % 0.5 Nucleated Red Blood Cells % 1.6 H Neutrophils # 7.9 H Lymphocytes # 1.3 Monocytes # 1.4 H Eosinophils # 0.5 Basophils # 0.1 Nucleated Red Blood Cells # 0.2 H Sodium Level 149 H Potassium Level 3.7 Chloride Level 116 H Carbon Dioxide Level 29 Anion Gap 8 Blood Urea Nitrogen 78 #H Creatinine 3.16 #H Glucose Level 156 Calcium Level 8.9 Phosphorus Level 3.9 Magnesium Level 2.6 H Medications Medications Current Medications Ondansetron HCl (Zofran Inj) 4 mg Q6H PRN IV NAUSEA AND/OR VOMITING; Start 01/17 at 14:30 Morphine Sulfate (morphine) 2 mg Q4H PRN IV SEVERE PAIN LEVEL 7-10 Last administered on 01/27/17t 14:25; Admin Dose 2 MG; Start 01/17/17 at 14:30 Docusate Sodium (Colace) 100 mg Q12H PRN PO CONSTIPATION; Start 01/17/17 at 14: 30 Febuxostat (Uloric) 40 mg DAILY PO Last administered on 01/30/17 09:11; Admin Dose 40 MG; Start 01/18/17 at 09:00 Diphenhydramine HCl (Benadryl) 25 mg Q4H PRN IV CHILLS; Start 01/17/17 at 18:30 Diltiazem HCl (Cardizem Cd) 240 mg DAILY PO Last administered on 01/30/17 09: 11; Admin Dose 240 MG; Start 01/17/17 at 18:30 Nicotine 1 patch 1 patch DAILY TRANSDERM Last administered on 01/30/17 09:10; Admin Dose 1 PATCH; Start 01/18/17 at 10:30 Acetaminophen (Ofirmev 1000mg/ 100ml Iv) 100 ml @ 400 mls/hr Q4 PRN IVPB FEVER GREATER THAN 100.6 Last administered on 01/23/17 14:09; Admin Dose 400 MLS /HR; Start 01/19/17 at 00:30 Hydralazine HCl (Apresoline) 10 mg Q4H PRN IV hypertension Last administered on 01/27/17 22:20; Admin Dose 10 MG; Start 01/19/17 at 01:00 Labetalol HCl (Labetalol) 20 mg Q3 PRN IV ELEVATED BLOOD PRESSURE Last administered on 01/27/17 11:12; Admin Dose 20 MG; Start 01/19/17 at 02:30 Labetalol HCl (Labetalol) 10 mg Q3 PRN IV ELEVATED BLOOD PRESSURE Last administered on 01/27/17 02:04; Admin Dose 10 MG; Start 01/19/17 at 02:30 Diagnostic Test (Pha) (Accu-Chek) 1 ea 02 XX Last administered on 01/27/17 02: 01; Admin Dose 1 EA; Start 01/20/17 at 02:00 Insulin Aspart (Novolog Insulin Pen) NOVOLOG *MILD* ALGORI... Q4 SC Last administered on 01/30/17 09:16; Admin Dose 1 UNIT; Start 01/19/17 at 09:00 Miscellaneous Information 1 ea NOTE XX ; Start 01/19/17 at 09:00 Glucose (Glutose) 15 gm Q15M PRN PO DECREASED GLUCOSE; Start 01/19/17 at 09:00 Glucose (Glutose) 22.5 gm Q15M PRN PO DECREASED GLUCOSE; Start 01/19/17 at 09:00 Dextrose (D50w Syringe) 25 ml Q15M PRN IV DECREASED GLUCOSE; Start 01/19/17 at 09:00 Dextrose (D50w Syringe) 50 ml Q15M PRN IV DECREASED GLUCOSE; Start 01/19/17 at 09:00 Glucagon (Glucagen) 1 mg Q15M PRN IM DECREASED GLUCOSE; Start 01/19/17 at 09:00 Glucose (Glutose) 15 gm Q15M PRN BUCCAL DECREASED GLUCOSE; Start 01/19/17 at 09: 00 IV Flush (NS 10 ml) 10 ml PRN PRN IV FLUSH LINE; Start 01/19/17 at 12:00 Diphenhydramine HCl (Benadryl Liquid Cup) 25 mg QHS PRN NGT ITCHING; Start 01/19 at 21:00 Hydralazine HCl (Apresoline) 25 mg Q4H PRN NGT hypertension Last administered on 01/25/17 12:17; Admin Dose 25 MG; Start 01/19/17 at 20:30 Acetaminophen/ Hydrocodone Bitart (Horicon (5/325)) 1 tab Q6H PRN NGT MODERATE PAIN LEVEL 4-6; Start 01/20/17 at 02:30 Magnesium Hydroxide (Milk Of Mag) 30 ml DAILY PRN NGT CONSTIPATION; Start at 20:30 Acetaminophen (Tylenol Liquid) 1,000 mg Q4H PRN NGT PAIN AND OR ELEVATED TEMP; Start 01/19/17 at 20:30; Status Future Hold Docusate Sodium (Colace Liquid Cup) 100 mg TID NGT Last administered on 09:10; Admin Dose 100 MG; Start 01/19/17 at 21:00 Lorazepam 2 mg 2 mg Q6H PRN IV before LP and MRI Last administered on 01/23/17 11:28; Admin Dose 2 MG; Start 01/20/17 at 00:00 Fentanyl (Sublimaze) 100 ml @ 2.5 mls/hr TITRATE IV Last administered on 06:48; Admin Dose 5 MLS/HR; Start 01/20/17 at 10:00 Lansoprazole 30 mg 30 mg DAILY@06 NGT Last administered on 01/30/17 05:50; Admin Dose 30 MG; Start 01/21/17 at 06:00 Norepinephrine 16 mg/Dextrose 500 ml @ 1.87 mls/hr TITRATE IV ; Start 01/20/17 at 17:30 Midazolam HCl (Versed) 50 ml @ 1 mls/hr TITRATE IV Last administered on 00:13; Admin Dose 8 MLS/HR; Start 01/23/17 at 09:30 Heparin Sodium (Porcine) (Heparin (5000 Units/0.5 ml)) 5,000 unit BID SC Last administered on 01/29/17 21:07; Admin Dose 5,000 UNIT; Start 01/24/17 at 21:00 Insulin Glargine (Lantus) 10 unit DAILY@08 SC Last administered on 01/30/17 09 :14; Admin Dose 10 UNIT; Start 01/25/17 at 14:30 Hydralazine HCl (Apresoline) 50 mg TID NGT Last administered on 01/30/17 09:11 ; Admin Dose 50 MG; Start 01/26/17 at 21:00 Metoprolol Tartrate 100 mg 100 mg BID NGT Last administered on 01/30/17 09:13 ; Admin Dose 100 MG; Start 01/26/17 at 21:00 Sodium Chloride (NS) 1,000 ml @ 0 mls/hr Q0M IV Last administered on 07:00; Admin Dose 10 MLS/HR; Start 01/27/17 at 12:00 HONEY RAM DO Jan 30, 2017 09:48
--- NOTE | 2017-01-30 10:31 | CONS ---
Date/Time of Note Date/Time of Note DATE: 01/30/17 TIME: 10:27 Consult Date/Type/Reason Admit Date/Time Jan 17, 2017 at 17:33 Type of Consultation: Rheum Subjective Per Nursing staff patient has opened his eye a few times. MRI brain shows cerebellar encephalopathy. Objective Vital Signs Date Time Temp Pulse Resp B/P Pulse Ox O2 Delivery O2 Flow Rate FiO2 01/30/17 08:00 80 01/30/17 06:00 18 141/80 100 Mechanical Ventilator 01/30/17 05:14 40 01/30/17 04:00 99.2 Intake and Output 01/29/17 01/29/17 01/30/17 15:00 23:00 07:00 Intake Total 1108 ml 1300 ml 633 ml Output Total 516 ml 683 ml 367 ml Balance 592 ml 617 ml 266 ml Exam GENERAL: Intubated, sedated; SKIN: Multiple echymoses throughout- HEENT: ET Tube in place NECK: No lymphadenopathy. HEART: S1, S2. Regular rate and rhythm. LUNGS: Clear bilaterally to auscultation. ABDOMEN: Distended. EXTREMITIES: No cyanosis, no edema. MUSCULOSKELETAL: No synovitis Results/Medications Result Diagram: 01/30/17 0430 01/30/17 0430 Results 24 hrs Laboratory Tests Test 01/29/17 11:30 01/29/17 12:24 01/29/17 16:49 01/29/17 21:03 Urine Random Creatinine 48.30 Urine Random Sodium 45 Urine Total Protein 300.0 H Bedside Glucose 151 187 109 Test 01/30/17 00:58 01/30/17 04:30 01/30/17 05:45 01/30/17 08:57 Bedside Glucose 160 169 172 White Blood Count 11.6 H Red Blood Count 3.29 L Hemoglobin 8.8 L Hematocrit 26.0 L Mean Corpuscular Volume 79.0 L Mean Corpuscular Hemoglobin 26.7 L Mean Corpuscular Hemoglobin Concent 33.8 Red Cell Distribution Width 19.9 H Platelet Count 114 #L Mean Platelet Volume Neutrophils % 68.4 Lymphocytes % 11.6 L Monocytes % 11.9 H Eosinophils % 4.4 Basophils % 0.5 Nucleated Red Blood Cells % 1.6 H Neutrophils # 7.9 H Lymphocytes # 1.3 Monocytes # 1.4 H Eosinophils # 0.5 Basophils # 0.1 Nucleated Red Blood Cells # 0.2 H Sodium Level 149 H Potassium Level 3.7 Chloride Level 116 H Carbon Dioxide Level 29 Anion Gap 8 Blood Urea Nitrogen 78 #H Creatinine 3.16 #H Glucose Level 156 Calcium Level 8.9 Phosphorus Level 3.9 Magnesium Level 2.6 H Medications Current Medications Ondansetron HCl (Zofran Inj) 4 mg Q6H PRN IV NAUSEA AND/OR VOMITING; Start 01/17 at 14:30 Morphine Sulfate (morphine) 2 mg Q4H PRN IV SEVERE PAIN LEVEL 7-10 Last administered on 01/27/17 14:25; Admin Dose 2 MG; Start 01/17/17 at 14:30 Docusate Sodium (Colace) 100 mg Q12H PRN PO CONSTIPATION; Start 01/17/17 at 14: 30 Febuxostat (Uloric) 40 mg DAILY PO Last administered on 01/30/17 09:11; Admin Dose 40 MG; Start 01/18/17 at 09:00 Diphenhydramine HCl (Benadryl) 25 mg Q4H PRN IV CHILLS; Start 01/17/17 at 18:30 Diltiazem HCl (Cardizem Cd) 240 mg DAILY PO Last administered on 01/30/17 09: 11; Admin Dose 240 MG; Start 01/17/17 at 18:30 Nicotine 1 patch 1 patch DAILY TRANSDERM Last administered on 01/30/17 09:10; Admin Dose 1 PATCH; Start 01/18/17 at 10:30 Acetaminophen (Ofirmev 1000mg/ 100ml Iv) 100 ml @ 400 mls/hr Q4 PRN IVPB FEVER GREATER THAN 100.6 Last administered on 01/23/17 14:09; Admin Dose 400 MLS /HR; Start 01/19/17 at 00:30 Hydralazine HCl (Apresoline) 10 mg Q4H PRN IV hypertension Last administered on 01/27/17 22:20; Admin Dose 10 MG; Start 01/19/17 at 01:00 Labetalol HCl (Labetalol) 20 mg Q3 PRN IV ELEVATED BLOOD PRESSURE Last administered on 01/27/17 11:12; Admin Dose 20 MG; Start 01/19/17 at 02:30 Labetalol HCl (Labetalol) 10 mg Q3 PRN IV ELEVATED BLOOD PRESSURE Last administered on 01/27/17 02:04; Admin Dose 10 MG; Start 01/19/17 at 02:30 Diagnostic Test (Pha) (Accu-Chek) 1 ea 02 XX Last administered on 01/27/17 02: 01; Admin Dose 1 EA; Start 01/20/17 at 02:00 Insulin Aspart (Novolog Insulin Pen) NOVOLOG *MILD* ALGORI... Q4 SC Last administered on 01/30/17 09:16; Admin Dose 1 UNIT; Start 01/19/17 at 09:00 Miscellaneous Information 1 ea NOTE XX ; Start 01/19/17 at 09:00 Glucose (Glutose) 15 gm Q15M PRN PO DECREASED GLUCOSE; Start 01/19/17 at 09:00 Glucose (Glutose) 22.5 gm Q15M PRN PO DECREASED GLUCOSE; Start 01/19/17 at 09:00 Dextrose (D50w Syringe) 25 ml Q15M PRN IV DECREASED GLUCOSE; Start 01/19/17 at 09:00 Dextrose (D50w Syringe) 50 ml Q15M PRN IV DECREASED GLUCOSE; Start 01/19/17 at 09:00 Glucagon (Glucagen) 1 mg Q15M PRN IM DECREASED GLUCOSE; Start 01/19/17 at 09:00 Glucose (Glutose) 15 gm Q15M PRN BUCCAL DECREASED GLUCOSE; Start 01/19/17 at 09: 00 IV Flush (NS 10 ml) 10 ml PRN PRN IV FLUSH LINE; Start 01/19/17 at 12:00 Diphenhydramine HCl (Benadryl Liquid Cup) 25 mg QHS PRN NGT ITCHING; Start 01/19 at 21:00 Hydralazine HCl (Apresoline) 25 mg Q4H PRN NGT hypertension Last administered on 01/25/17 12:17; Admin Dose 25 MG; Start 01/19/17 at 20:30 Acetaminophen/ Hydrocodone Bitart (Barling (5/325)) 1 tab Q6H PRN NGT MODERATE PAIN LEVEL 4-6; Start 01/20/17 at 02:30 Magnesium Hydroxide (Milk Of Mag) 30 ml DAILY PRN NGT CONSTIPATION; Start at 20:30 Acetaminophen (Tylenol Liquid) 1,000 mg Q4H PRN NGT PAIN AND OR ELEVATED TEMP; Start 01/19/17 at 20:30; Status Future Hold Docusate Sodium (Colace Liquid Cup) 100 mg TID NGT Last administered on 09:10; Admin Dose 100 MG; Start 01/19/17 at 21:00 Lorazepam 2 mg 2 mg Q6H PRN IV before LP and MRI Last administered on 01/23/17 11:28; Admin Dose 2 MG; Start 01/20/17 at 00:00 Fentanyl (Sublimaze) 100 ml @ 2.5 mls/hr TITRATE IV Last administered on 06:48; Admin Dose 5 MLS/HR; Start 01/20/17 at 10:00 Lansoprazole 30 mg 30 mg DAILY@06 NGT Last administered on 01/30/17 05:50; Admin Dose 30 MG; Start 01/21/17 at 06:00 Norepinephrine 16 mg/Dextrose 500 ml @ 1.87 mls/hr TITRATE IV ; Start 01/20/17 at 17:30 Midazolam HCl (Versed) 50 ml @ 1 mls/hr TITRATE IV Last administered on 00:13; Admin Dose 8 MLS/HR; Start 01/23/17 at 09:30 Heparin Sodium (Porcine) (Heparin (5000 Units/0.5 ml)) 5,000 unit BID SC Last administered on 01/29/17 21:07; Admin Dose 5,000 UNIT; Start 01/24/17 at 21:00 Insulin Glargine (Lantus) 10 unit DAILY@08 SC Last administered on 01/30/17 09 :14; Admin Dose 10 UNIT; Start 01/25/17 at 14:30 Hydralazine HCl (Apresoline) 50 mg TID NGT Last administered on 01/30/17 09:11 ; Admin Dose 50 MG; Start 01/26/17 at 21:00 Metoprolol Tartrate 100 mg 100 mg BID NGT Last administered on 01/30/17 09:13 ; Admin Dose 100 MG; Start 01/26/17 at 21:00 Sodium Chloride (NS) 1,000 ml @ 0 mls/hr Q0M IV Last administered on 07:00; Admin Dose 10 MLS/HR; Start 01/27/17 at 12:00 Assessment/Plan Chief Complaint/Hosp Course IMPRESSION AND PLAN: 66-year-old male with history of hypertension, adenocarcinoma of the lung, gout and Abbi's that has affected his small bowel and his kidneys now presenting with a 1-week history of fevers, chills, generalized weakness and confusiont. He has been intubated after having some respiratory distress that pulmonary feels is more central in etiology 1. Respiratory failure- most likely central in Etiology. Now MRI shows cerebellar encephalitis 2. Fevers now resolved on antibiotics. WBC scan negative Patient had been given some IV steroids and IVIG without any change. LP results pendin MRI results pedning. 3. Abbi's. The patient is currently on Rituxan which is an immunosuppressant. Again, this puts him at risk for opportunistic infections, so for this reason, I would consider him more at risk of having infection as a cause of a fever. Also his Abbi's has been very well controlled since his diagnosis, he has never had a flare, he has never been hospitalized, with Cytoxan and now Rituxan, I feel like it is unlikely that it would be a Abbi's flare. 4 History of gout. Uric acid levels are low. There is no joint swelling. No joint pain. 5 Acute on Chronic kidney disease, likely secondary to infection. Now getting HD I Problems: SHIRLEY MORALES MD Jan 30, 2017 10:31
--- NOTE | 2017-01-30 13:08 | CONS ---
Date/Time of Note Date/Time of Note DATE: 01/30/17 TIME: 12:55 Assessment/Plan Assessment/Plan Chief Complaint/Hosp Course ID PROGRESS NOTE CURRENT ABX: OFF ABX BRIEF HPI SUMMARY 65 yo M w/ PMHx Abbi's granulomatosis, HTN, Gout, CKD, COPD, lung cancer ( hx of resection), chronic tobacco x many years, occasional ETOH admit with fevers, chills, weakness. * Acute meningeoencephalitis w/ now with respiratory failure, orally intubated, non-communicative, acute renal failure/CKD, pressors * No fevers, WBC mild elevation EXAM GEN: 66 yo M, VDRF, noncommunicative HEENT:ETT-> secure to Vent NECK: supple CVS: RRR CHEST: Equal chest rise bilaterally with course BS ABD: Soft, NT, + BS EXT: No c/c/e NEURO: Grossly intact, moves all extremities SKIN: No diaphoresis, no obvious rash ID ASSESSMENT 66 yo [place]ogolese speaking M admit with: 1. Hypotensive shock -> SIRS w/fevers/chillls, malaise, fatigue, headache, double vision w/ TMax 101.7, leukocytosis, 12.5, VSS, ESR 10 => Fever unknown origin * DDx = meningoencephalitis, status post lumbar puncture done twice with cerebrospinal fluid cultures and Gram stain being negative, Guerda ink negative. Herpes simplex virus by polymerase chain reaction negative. Cocci negative. West Nile virus negative, RPR/VDRL(-); patient completed treatment with broad- spectrum antibiotics since admission for possible bacterial meningitis. * 9/3 BCx (-) <24H * 9/3 UA (-) * 9/3 INFLUENZA A & B BY EIA Final INFLU A&B BY EIA INFLUENZA A NEGATIVE (Ref Range Neg) INFLUENZA B NEGATIVE (Ref Range Neg) 2. Immunocompromised Host 2/2 [place]'s granulomatosis * Rx Rituxin Q 6 mos * Current ESR 10, CRP 0.9 3. Acute respiratory failure due to acute encephalopathy 4. COPD w/ hx of current + senior living tobaccoism 5.history of lung cancer status post resection 9-yrs keyon 6. CKD=> Worsening renal failure w/plan to start HD 7. HTN 8. Gout (- ) MRSA Nares INVASIVES: PIV CURRENT ABX: OFF ABX ID RECOMMENDATIONS 1. Has completed course of ABX, all micro negative, now with acute worsening renal failure to start HD * Per notes, plan is to keep him OFF ABX unless clinical indicators for bacterial sepsis manifest . Problems: Consultation Date/Type/Reason Admit Date/Time Jan 17, 2017 at 17:33 Type of Consultation: ID Exam/Review of Systems Vital Signs Vitals Vital Signs Date Time Temp Pulse Resp B/P Pulse Ox O2 Delivery O2 Flow Rate FiO2 01/30/17 12:00 98.6 64 19 127/68 100 01/30/17 08:00 40 01/30/17 07:00 Mechanical Ventilator Intake and Output 01/29/17 01/29/17 01/30/17 15:00 23:00 07:00 Intake Total 1108 ml 1300 ml 633 ml Output Total 516 ml 683 ml 367 ml Balance 592 ml 617 ml 266 ml Results Result Diagram: 01/30/17 0430 01/30/17 0430 Results 24 hrs Laboratory Tests Test 01/29/17 16:49 01/29/17 21:03 01/30/17 00:58 01/30/17 04:30 Bedside Glucose 187 109 160 White Blood Count 11.6 H Red Blood Count 3.29 L Hemoglobin 8.8 L Hematocrit 26.0 L Mean Corpuscular Volume 79.0 L Mean Corpuscular Hemoglobin 26.7 L Mean Corpuscular Hemoglobin Concent 33.8 Red Cell Distribution Width 19.9 H Platelet Count 114 #L Mean Platelet Volume Neutrophils % 68.4 Lymphocytes % 11.6 L Monocytes % 11.9 H Eosinophils % 4.4 Basophils % 0.5 Nucleated Red Blood Cells % 1.6 H Neutrophils # 7.9 H Lymphocytes # 1.3 Monocytes # 1.4 H Eosinophils # 0.5 Basophils # 0.1 Nucleated Red Blood Cells # 0.2 H Sodium Level 149 H Potassium Level 3.7 Chloride Level 116 H Carbon Dioxide Level 29 Anion Gap 8 Blood Urea Nitrogen 78 #H Creatinine 3.16 #H Glucose Level 156 Calcium Level 8.9 Phosphorus Level 3.9 Magnesium Level 2.6 H Test 01/30/17 05:45 01/30/17 08:57 Bedside Glucose 169 172 Medications Medications Current Medications Ondansetron HCl (Zofran Inj) 4 mg Q6H PRN IV NAUSEA AND/OR VOMITING; Start 01/17 at 14:30 Morphine Sulfate (morphine) 2 mg Q4H PRN IV SEVERE PAIN LEVEL 7-10 Last administered on 01/27/17 14:25; Admin Dose 2 MG; Start 01/17/17 at 14:30 Docusate Sodium (Colace) 100 mg Q12H PRN PO CONSTIPATION; Start 01/17/17 at 14: 30 Febuxostat (Uloric) 40 mg DAILY PO Last administered on 01/30/17 09:11; Admin Dose 40 MG; Start 01/18/17 at 09:00 Diphenhydramine HCl (Benadryl) 25 mg Q4H PRN IV CHILLS; Start 01/17/17 at 18:30 Diltiazem HCl (Cardizem Cd) 240 mg DAILY PO Last administered on 01/30/17 09: 11; Admin Dose 240 MG; Start 01/17/17 at 18:30 Nicotine 1 patch 1 patch DAILY TRANSDERM Last administered on 01/30/17 09:10; Admin Dose 1 PATCH; Start 01/18/17 at 10:30 Acetaminophen (Ofirmev 1000mg/ 100ml Iv) 100 ml @ 400 mls/hr Q4 PRN IVPB FEVER GREATER THAN 100.6 Last administered on 01/23/17 14:09; Admin Dose 400 MLS /HR; Start 01/19/17 at 00:30 Hydralazine HCl (Apresoline) 10 mg Q4H PRN IV hypertension Last administered on 01/27/17 22:20; Admin Dose 10 MG; Start 01/19/17 at 01:00 Labetalol HCl (Labetalol) 20 mg Q3 PRN IV ELEVATED BLOOD PRESSURE Last administered on 01/27/17 11:12; Admin Dose 20 MG; Start 01/19/17 at 02:30 Labetalol HCl (Labetalol) 10 mg Q3 PRN IV ELEVATED BLOOD PRESSURE Last administered on 01/27/17 02:04; Admin Dose 10 MG; Start 01/19/17 at 02:30 Diagnostic Test (Pha) (Accu-Chek) 1 ea 02 XX Last administered on 01/27/17 02: 01; Admin Dose 1 EA; Start 01/20/17 at 02:00 Insulin Aspart (Novolog Insulin Pen) NOVOLOG *MILD* ALGORI... Q4 SC Last administered on 01/30/17 09:16; Admin Dose 1 UNIT; Start 01/19/17 at 09:00 Miscellaneous Information 1 ea NOTE XX ; Start 01/19/17 at 09:00 Glucose (Glutose) 15 gm Q15M PRN PO DECREASED GLUCOSE; Start 01/19/17 at 09:00 Glucose (Glutose) 22.5 gm Q15M PRN PO DECREASED GLUCOSE; Start 01/19/17 at 09:00 Dextrose (D50w Syringe) 25 ml Q15M PRN IV DECREASED GLUCOSE; Start 01/19/17 at 09:00 Dextrose (D50w Syringe) 50 ml Q15M PRN IV DECREASED GLUCOSE; Start 01/19/17 at 09:00 Glucagon (Glucagen) 1 mg Q15M PRN IM DECREASED GLUCOSE; Start 01/19/17 at 09:00 Glucose (Glutose) 15 gm Q15M PRN BUCCAL DECREASED GLUCOSE; Start 01/19/17 at 09: 00 IV Flush (NS 10 ml) 10 ml PRN PRN IV FLUSH LINE; Start 01/19/17 at 12:00 Diphenhydramine HCl (Benadryl Liquid Cup) 25 mg QHS PRN NGT ITCHING; Start 01/19 at 21:00 Hydralazine HCl (Apresoline) 25 mg Q4H PRN NGT hypertension Last administered on 01/25/17 12:17; Admin Dose 25 MG; Start 01/19/17 at 20:30 Acetaminophen/ Hydrocodone Bitart ([place] (5/325)) 1 tab Q6H PRN NGT MODERATE PAIN LEVEL 4-6; Start 01/20/17 at 02:30 Magnesium Hydroxide (Milk Of Mag) 30 ml DAILY PRN NGT CONSTIPATION; Start at 20:30 Acetaminophen (Tylenol Liquid) 1,000 mg Q4H PRN NGT PAIN AND OR ELEVATED TEMP; Start 01/19/17 at 20:30; Status Future Hold Docusate Sodium (Colace Liquid Cup) 100 mg TID NGT Last administered on 09:10; Admin Dose 100 MG; Start 01/19/17 at 21:00 Lorazepam 2 mg 2 mg Q6H PRN IV before LP and MRI Last administered on 01/23/17 11:28; Admin Dose 2 MG; Start 01/20/17 at 00:00 Fentanyl (Sublimaze) 100 ml @ 2.5 mls/hr TITRATE IV Last administered on 06:48; Admin Dose 5 MLS/HR; Start 01/20/17 at 10:00 Lansoprazole 30 mg 30 mg DAILY@06 NGT Last administered on 01/30/17 05:50; Admin Dose 30 MG; Start 01/21/17 at 06:00 Norepinephrine 16 mg/Dextrose 500 ml @ 1.87 mls/hr TITRATE IV ; Start 01/20/17 at 17:30 Midazolam HCl (Versed) 50 ml @ 1 mls/hr TITRATE IV Last administered on 00:13; Admin Dose 8 MLS/HR; Start 01/23/17 at 09:30 Heparin Sodium (Porcine) (Heparin (5000 Units/0.5 ml)) 5,000 unit BID SC Last administered on 01/29/17 21:07; Admin Dose 5,000 UNIT; Start 01/24/17 at 21:00 Insulin Glargine (Lantus) 10 unit DAILY@08 SC Last administered on 01/30/17 09 :14; Admin Dose 10 UNIT; Start 01/25/17 at 14:30 Hydralazine HCl (Apresoline) 50 mg TID NGT Last administered on 01/30/17 09:11 ; Admin Dose 50 MG; Start 01/26/17 at 21:00 Metoprolol Tartrate 100 mg 100 mg BID NGT Last administered on 01/30/17 09:13 ; Admin Dose 100 MG; Start 01/26/17 at 21:00 Sodium Chloride (NS) 1,000 ml @ 0 mls/hr Q0M IV Last administered on 07:00; Admin Dose 10 MLS/HR; Start 01/27/17 at 12:00 RADHA SHAH NP Jan 30, 2017 13:05
--- NOTE | 2017-01-30 13:50 | CONS ---
Date/Time of Note Date/Time of Note DATE: 01/30/17 TIME: 13:45 Consult Date/Type/Reason Admit Date/Time Jan 17, 2017 at 17:33 Type of Consultation: neurology Subjective sedated, intubated, had HD yesterday, no acute events Objective Vital Signs Date Time Temp Pulse Resp B/P Pulse Ox O2 Delivery O2 Flow Rate FiO2 01/30/17 12:00 98.6 64 19 127/68 100 01/30/17 11:10 40 01/30/17 07:00 Mechanical Ventilator Intake and Output 01/29/17 01/29/17 01/30/17 15:00 23:00 07:00 Intake Total 1108 ml 1300 ml 690 ml Output Total 516 ml 683 ml 432 ml Balance 592 ml 617 ml 258 ml Exam Exam NEUROLOGIC: Patient is lethargic. Sedated. Intubated Does not follow commands. taken of Versed 2, fentanyl, opens eyes to stimulation No definite response to visual threat bilaterally. Pupils about 2 mm sluggish. Extraocular movements absent spontaneously, able to cross midline on oculocephalic maneuver. Corneal reflexes present bilaterally, as well as gag. Motor strength examination no movements. Slightly increased tone in upper extremities, cogwheeling. Newly noticed left foot drop. Deep tendon reflexes, 2+ upper extremities and knees, right ankle jerk, absent left one. No response to plantar stimulation bilaterally. Severe nuchal rigidity still present Results/Medications Result Diagram: 01/30/17 0430 01/30/17 0430 Results 24 hrs Laboratory Tests Test 01/29/17 16:49 01/29/17 21:03 01/30/17 00:58 01/30/17 04:30 Bedside Glucose 187 109 160 White Blood Count 11.6 H Red Blood Count 3.29 L Hemoglobin 8.8 L Hematocrit 26.0 L Mean Corpuscular Volume 79.0 L Mean Corpuscular Hemoglobin 26.7 L Mean Corpuscular Hemoglobin Concent 33.8 Red Cell Distribution Width 19.9 H Platelet Count 114 #L Mean Platelet Volume Neutrophils % 68.4 Lymphocytes % 11.6 L Monocytes % 11.9 H Eosinophils % 4.4 Basophils % 0.5 Nucleated Red Blood Cells % 1.6 H Neutrophils # 7.9 H Lymphocytes # 1.3 Monocytes # 1.4 H Eosinophils # 0.5 Basophils # 0.1 Nucleated Red Blood Cells # 0.2 H Sodium Level 149 H Potassium Level 3.7 Chloride Level 116 H Carbon Dioxide Level 29 Anion Gap 8 Blood Urea Nitrogen 78 #H Creatinine 3.16 #H Glucose Level 156 Calcium Level 8.9 Phosphorus Level 3.9 Magnesium Level 2.6 H Test 01/30/17 05:45 01/30/17 08:57 01/30/17 13:28 Bedside Glucose 169 172 169 Medications Current Medications Ondansetron HCl (Zofran Inj) 4 mg Q6H PRN IV NAUSEA AND/OR VOMITING; Start 01/17 at 14:30 Morphine Sulfate (morphine) 2 mg Q4H PRN IV SEVERE PAIN LEVEL 7-10 Last administered on 01/27/17 14:25; Admin Dose 2 MG; Start 01/17/17 at 14:30 Docusate Sodium (Colace) 100 mg Q12H PRN PO CONSTIPATION; Start 01/17/17 at 14: 30 Febuxostat (Uloric) 40 mg DAILY PO Last administered on 01/30/17 09:11; Admin Dose 40 MG; Start 01/18/17 at 09:00 Diphenhydramine HCl (Benadryl) 25 mg Q4H PRN IV CHILLS; Start 01/17/17 at 18:30 Diltiazem HCl (Cardizem Cd) 240 mg DAILY PO Last administered on 01/30/17 09: 11; Admin Dose 240 MG; Start 01/17/17 at 18:30 Nicotine 1 patch 1 patch DAILY TRANSDERM Last administered on 01/30/17 09:10; Admin Dose 1 PATCH; Start 01/18/17 at 10:30 Acetaminophen (Ofirmev 1000mg/ 100ml Iv) 100 ml @ 400 mls/hr Q4 PRN IVPB FEVER GREATER THAN 100.6 Last administered on 01/23/17 14:09; Admin Dose 400 MLS /HR; Start 01/19/17 at 00:30 Hydralazine HCl (Apresoline) 10 mg Q4H PRN IV hypertension Last administered on 01/27/17 22:20; Admin Dose 10 MG; Start 01/19/17 at 01:00 Labetalol HCl (Labetalol) 20 mg Q3 PRN IV ELEVATED BLOOD PRESSURE Last administered on 01/27/17 11:12; Admin Dose 20 MG; Start 01/19/17 at 02:30 Labetalol HCl (Labetalol) 10 mg Q3 PRN IV ELEVATED BLOOD PRESSURE Last administered on 01/27/17 02:04; Admin Dose 10 MG; Start 01/19/17 at 02:30 Diagnostic Test (Pha) (Accu-Chek) 1 ea 02 XX Last administered on 01/27/17 02: 01; Admin Dose 1 EA; Start 01/20/17 at 02:00 Insulin Aspart (Novolog Insulin Pen) NOVOLOG *MILD* ALGORI... Q4 SC Last administered on 01/30/17 13:33; Admin Dose 1 UNIT; Start 01/19/17 at 09:00 Miscellaneous Information 1 ea NOTE XX ; Start 01/19/17 at 09:00 Glucose (Glutose) 15 gm Q15M PRN PO DECREASED GLUCOSE; Start 01/19/17 at 09:00 Glucose (Glutose) 22.5 gm Q15M PRN PO DECREASED GLUCOSE; Start 01/19/17 at 09:00 Dextrose (D50w Syringe) 25 ml Q15M PRN IV DECREASED GLUCOSE; Start 01/19/17 at 09:00 Dextrose (D50w Syringe) 50 ml Q15M PRN IV DECREASED GLUCOSE; Start 01/19/17 at 09:00 Glucagon (Glucagen) 1 mg Q15M PRN IM DECREASED GLUCOSE; Start 01/19/17 at 09:00 Glucose (Glutose) 15 gm Q15M PRN BUCCAL DECREASED GLUCOSE; Start 01/19/17 at 09: 00 IV Flush (NS 10 ml) 10 ml PRN PRN IV FLUSH LINE; Start 01/19/17 at 12:00 Diphenhydramine HCl (Benadryl Liquid Cup) 25 mg QHS PRN NGT ITCHING; Start 01/19 at 21:00 Hydralazine HCl (Apresoline) 25 mg Q4H PRN NGT hypertension Last administered on 01/25/17 12:17; Admin Dose 25 MG; Start 01/19/17 at 20:30 Acetaminophen/ Hydrocodone Bitart ([place] (5/325)) 1 tab Q6H PRN NGT MODERATE PAIN LEVEL 4-6; Start 01/20/17 at 02:30 Magnesium Hydroxide (Milk Of Mag) 30 ml DAILY PRN NGT CONSTIPATION; Start at 20:30 Acetaminophen (Tylenol Liquid) 1,000 mg Q4H PRN NGT PAIN AND OR ELEVATED TEMP; Start 01/19/17 at 20:30; Status Future Hold Docusate Sodium (Colace Liquid Cup) 100 mg TID NGT Last administered on 13:28; Admin Dose 100 MG; Start 01/19/17 at 21:00 Lorazepam 2 mg 2 mg Q6H PRN IV before LP and MRI Last administered on 01/23/17 11:28; Admin Dose 2 MG; Start 01/20/17 at 00:00 Fentanyl (Sublimaze) 100 ml @ 2.5 mls/hr TITRATE IV Last administered on 06:48; Admin Dose 5 MLS/HR; Start 01/20/17 at 10:00 Lansoprazole 30 mg 30 mg DAILY@06 NGT Last administered on 01/30/17 05:50; Admin Dose 30 MG; Start 01/21/17 at 06:00 Norepinephrine 16 mg/Dextrose 500 ml @ 1.87 mls/hr TITRATE IV ; Start 01/20/17 at 17:30 Midazolam HCl (Versed) 50 ml @ 1 mls/hr TITRATE IV Last administered on 00:13; Admin Dose 8 MLS/HR; Start 01/23/17 at 09:30 Heparin Sodium (Porcine) (Heparin (5000 Units/0.5 ml)) 5,000 unit BID SC Last administered on 01/29/17 21:07; Admin Dose 5,000 UNIT; Start 01/24/17 at 21:00 Insulin Glargine (Lantus) 10 unit DAILY@08 SC Last administered on 01/30/17 09 :14; Admin Dose 10 UNIT; Start 01/25/17 at 14:30 Hydralazine HCl (Apresoline) 50 mg TID NGT Last administered on 01/30/17 13:29 ; Admin Dose 50 MG; Start 01/26/17 at 21:00 Metoprolol Tartrate 100 mg 100 mg BID NGT Last administered on 01/30/17 09:13 ; Admin Dose 100 MG; Start 01/26/17 at 21:00 Sodium Chloride (NS) 1,000 ml @ 0 mls/hr Q0M IV Last administered on t 07:00; Admin Dose 10 MLS/HR; Start 01/27/17 at 12:00 Assessment/Plan Chief Complaint/Hosp Course IMPRESSION: A 66-year-old gentleman who presented on 01-17-17 with several days of fevers and generalized weakness, dizziness, a few episodes of nausea, transient shoulder pain. Patient is immunosuppressed and in the hospital,he developed mental status changes, became confused, and complained of diplopia; has also developed noticeable nuchal rigidity, stridor, has to be intubated. Continues to be very encephalopathic, had transient tremor and myoclonus. 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 First LP: HSV PCR was negative, off acyclovir, bacterial and fungal work up negative. West Nile serology was sent out, negative per lab I called earlier.EEG c/w encephalopathy. S/p IVIG, had very low IG titers. Repeat LP 01-27-17, elevated OP 28, elevated protein 260, WBC 56, lymphocytes, gram stain, patricia ink negative; sendouts pending. MRI brain 01-28-17 c/w cerebelitis, no mass effect. Continue current Tx. Problems: LALO MONACO MD Jan 30, 2017 13:49
--- NOTE | 2017-01-30 17:42 | RADRPT ---
PROCEDURE: XR Chest. CLINICAL INDICATION: Respiratory failure TECHNIQUE: A single AP view of the chest was obtained. COMPARISON: Chest x-ray dated 01/27/2017 FINDINGS: The endotracheal tube tip is approximately 6.7 cm above the carmen. The tip of the enteric tube ex tends below the left diaphragm. There is a left upper extremity PICC line with tip near the cavoatri al junction. No focal airspace opacification, pleural effusion or pneumothorax is seen. The cardiomediastinal si lhouette is within normal limits for size. Calcifications are seen within the aortic arch. The osse ous structures are unremarkable. IMPRESSION: 1. Improved aeration of the left lower lobe when compared to the prior examination. No radiographic evidence of acute cardiopulmonary disease. 2. Aortic atherosclerosis. 3. Tubes and lines, as described above. RPTAT: HH .America Luther MD, MD Date Time Electronically viewed and signed by .America Luther MD, on 01/30/2017 17:41 .G/
[2017-01-30] MEDS: DEXAMETHASONE 4 MG/ML 1 ML INJ IV SCH (17:57)
--- NOTE | 2017-01-30 20:55 | PN ---
DATE: 01/30/2017 SUBJECTIVE DATA: The patient is seen currently off sedation, opens his eyes and upon me moving his upper extremity he is trying to open his eyes. He still does not appears to have any purposeful response to me. Case discussed with Neurology and the patient be started on IV Decadron. MRI did show some edema and we will see if the Decadron will help. OBJECTIVE DATA: VITAL SIGNS: Temperature 98.6, pulse 69, respiration 25, blood pressure 123/66, and saturation 100 percent 40 percent FiO2. GENERAL: General patient is resting comfortably. Patient is pale, opens his eyes at times. CARDIOVASCULAR: S1, S2. LUNGS: Mild rhonchi bilaterally. ABDOMEN: Soft. EXTREMITIES: Trace to plus 1 edema throughout. LABS: White count is 11.6, hemoglobin 8.8, hematocrit 26, platelet count 140, neutrophils 68 percent, and 12 percent. Chemistry, sodium is 149, potassium 3.7, chloride 116, bicarb 29, BUN is 78, creatinine 3.16, glucose 156, ammonia level less than 9. Glucose level 169. MEDICATIONS: 1. Decadron 4 mg IV every 6. 2. Hydralazine 50 mg 3 times a day. 3. Lopressor 100 twice a day. 4. Lantus 10 units daily. 5. Heparin 5000 subcu twice a day. 6. Metazoline as directed. 7. Pravastatin 10 mg daily. 8. Levophed as directed . 9. Fentanyl as directed. 10. [place] as needed. 11. Accu-Chek q.6 hours. 12. Colace 100 3 times daily. 13. Hydralazine as needed. 14. Milk of magnesia as needed. 15. Hypoglycemia protocol. 16. Tylenol as needed. 17. Nicotine patch daily. 18. Uloric 40 mg daily. 19. Zofran, morphine, and Colace as needed. ASSESSMENT AND PLAN: This is a 66-year-old, male, with history of Abbi's granulomatosis on Rituxan, immunocompromise, history of chronic kidney disease (CKD), nicotine dependency, hypertension, who presented with 1 week, fever, chills, generalized weakness and decreased by mouth intake. Was found to have progressive worsening encephalopathy requiring mechanical ventilation. 1. Respiratory. Continue AC mode, not a candidate for weaning as the patient is encephalopathic. The patient may need a trach. 2. Cardiovascular. Stable. Continue blood pressure meds. Heparin placed on hold secondary to mild cytopenia observe. 3. Renal, status post dialysis. Continue to monitor kidney function. 4. Dialysis is planned for tomorrow. 5. Encephalopathy with brain edema. Trial of IV Decadron will commence. We will follow neurological condition. I am concerned about viral infection may be secondary to progressive multifocal leukoencephalopathy (PML), as the patient is immunocompromised. 6. Hyperglycemia. Continue Lantus and insulin sliding scale. Likely need to include increase that further as the patient is started on steroids. 7. Continue Protonix for gastrointestinal prophylaxis. 8. Abbi's granulomatosis. Rheumatology is following. 9. Dysphagia on OG tube feeding. 10. Elevated liver function test (LFT), may be multifactorial. Follow up abdominal ultrasound. 11. Infectious Disease. Currently off antiviral. Follow up with the all cerebrospinal fluids (CSF) serologies. 12. We will follow. Dictated By: Gurwinder Triplett MD [email or web address] /Document#: [id number]
[2017-01-31] VITALS (47 sets, daily range): BP systolic 83–187; BP diastolic 58–92; PULSE 67–100; RESP 13–36
[2017-01-31] MEDS: ACCU-CHEK XX SCH (01:09)
[2017-01-31] MEDS: DEXAMETHASONE 4 MG/ML 1 ML INJ IV SCH ×4 (01:12→17:10)
[2017-01-31] MEDS: INSULIN ASPART [NOVOLOG] 3 ML PEN SC SCH ×6 (01:23→21:23)
[2017-01-31 05:51] LABS: ALBUMIN 3.2 g/dl (3.3-4.9); BILIRUBIN,INDIRECT 0.1 mg/dl (0-1.1); BILIRUBIN,TOTAL 0.1 mg/dl (0.2-1.3); TOTAL PROTEIN 7.1 g/dl (6.1-8.1)
[2017-01-31] MEDS: LANSOPRAZOLE 30 MG CAP NGT SCH (06:00)
[2017-01-31] MEDS: morphine 2 MG INJ IV PRN (07:22)
[2017-01-31] MEDS: MIDAZOLAM (DRIP) 50 mg/50 mL 50 ML IV SCH (07:46)
[2017-01-31] MEDS: HEPARIN 5,000 UNIT/0.5 ML VIAL SC SCH ×2 (09:00→21:22)
[2017-01-31] MEDS: METOPROLOL 100 MG TAB NGT SCH ×2 (09:00→21:17)
[2017-01-31] MEDS: DILTIAZEM (CD) 240 MG CAP PO SCH (09:00)
--- NOTE | 2017-01-31 09:03 | PN ---
Date/Time of Note Date/Time of Note DATE: 01/31/17 TIME: 09:01 Assessment/Plan VTE Prophylaxis VTE Prophylaxis Intervention: other Lines/Catheters IV Catheter Type (from Nrs): [place] Cath Central line still needed: Yes Urinary Cath still in place: Yes Reason Cath still needed: urinary retention Assessment/Plan Chief Complaint/Hosp Course renal follow up SUBJECTIVE DATA: The patient remains stable, afebrile. No significant change in mental status. No hemoptysis, hematemesis, hematochezia, new rash, fever, chills, diaphoresis s/p HD for acute renal failure d/w Dr Sierra OBJECTIVE DATA: HEENT: Head is normocephalic. NECK: Supple. HEART: Regular rate. LUNGS: Show diminished breath sounds at the base. ABDOMEN: Soft. Nontender to palpation. No rebound or guarding. EXTREMITIES: Negative for clubbing, cyanosis. No edema. DERMATOLOGIC: No rashes. MUSCULOSKELETAL: No joint effusion. NEUROLOGIC: No change in exam. IMAGING: Studies were reviewed. Chest x-ray was reviewed. ASSESSMENT AND PLAN: 1. Nonoliguric acute kidney injury on top of chronic kidney disease with previous baseline creatinine of 1.7 to 2.0 mg/dL. Etiology of acute kidney injury secondary to acute tubular necrosis due to multifocal disorder etiologies, including sepsis, hemodynamics fluctuations. given continued decline of renal function, he was started on hemodialysis. will evaluate daily for his dialytic needs 2. Anemia. Continue to monitor H and H levels. 3. Mineral bone disorder. Monitor calcium, phosphorus levels. 4. Hypermagnesemia secondary to acute kidney injury. Continue to monitor. 5. Severe sepsis secondary to encephalitis. Continue current antimicrobial antibiotic therapy. 6. History of Abbi granulomatosis, status post Rituxan. Continue follow up with Oncology. 7. Gastrointestinal and deep venous thrombosis prophylaxis. Continue PPI and sequential leg squeezes. 8. Ventilatory-dependent respiratory failure. Vent settings and ABGs reviewed. Follow up with Pulmonary. 9. Encephalopathy. 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 Will defer to Neurology for further management. The patient is status post IVIG. Possibility of West Nile still a consideration. Problems: Exam/Review of Systems Vital Signs Vitals Vital Signs Date Time Temp Pulse Resp B/P Pulse Ox O2 Delivery O2 Flow Rate FiO2 01/31/17 06:00 82 26 138/74 100 Mechanical Ventilator 01/31/17 05:19 30 01/31/17 04:00 98.8 Intake and Output 01/30/17 01/30/17 01/31/17 15:00 23:00 07:00 Intake Total 496 ml 350 ml 550 ml Output Total 463 ml 489 ml 446 ml Balance 33 ml -139 ml 104 ml Results Result Diagram: 01/30/17 0430 01/30/17 0430 Results 24 hrs Laboratory Tests Test 01/30/17 13:24 01/30/17 13:28 01/30/17 17:22 01/30/17 21:42 Ammonia < 9 L Bedside Glucose 169 118 204 Test 01/31/17 01:16 01/31/17 04:30 01/31/17 05:55 01/31/17 08:56 Bedside Glucose 246 H 207 191 Total Bilirubin 0.1 L Direct Bilirubin 0.00 Indirect Bilirubin 0.1 Aspartate Amino Transf (AST/SGOT) 107 H Alanine Aminotransferase (ALT/SGPT) 154 H Alkaline Phosphatase 250 H Total Protein 7.1 Albumin 3.2 L Medications Medications Current Medications Ondansetron HCl (Zofran Inj) 4 mg Q6H PRN IV NAUSEA AND/OR VOMITING; Start 01/17 at 14:30 Morphine Sulfate (morphine) 2 mg Q4H PRN IV SEVERE PAIN LEVEL 7-10 Last administered on 01/31/17 07:22; Admin Dose 2 MG; Start 01/17/17 at 14:30 Docusate Sodium (Colace) 100 mg Q12H PRN PO CONSTIPATION; Start 01/17/17 at 14: 30 Febuxostat (Uloric) 40 mg DAILY PO Last administered on 01/30/17 09:11; Admin Dose 40 MG; Start 01/18/17 at 09:00 Diphenhydramine HCl (Benadryl) 25 mg Q4H PRN IV CHILLS; Start 01/17/17 at 18:30 Diltiazem HCl (Cardizem Cd) 240 mg DAILY PO Last administered on 01/30/17 09: 11; Admin Dose 240 MG; Start 01/17/17 at 18:30 Nicotine 1 patch 1 patch DAILY TRANSDERM Last administered on 01/30/17 09:10; Admin Dose 1 PATCH; Start 01/18/17 at 10:30 Acetaminophen (Ofirmev 1000mg/ 100ml Iv) 100 ml @ 400 mls/hr Q4 PRN IVPB FEVER GREATER THAN 100.6 Last administered on 01/23/17 14:09; Admin Dose 400 MLS /HR; Start 01/19/17 at 00:30 Hydralazine HCl (Apresoline) 10 mg Q4H PRN IV hypertension Last administered on 01/27/17 22:20; Admin Dose 10 MG; Start 01/19/17 at 01:00 Labetalol HCl (Labetalol) 20 mg Q3 PRN IV ELEVATED BLOOD PRESSURE Last administered on 01/27/17 11:12; Admin Dose 20 MG; Start 01/19/17 at 02:30 Labetalol HCl (Labetalol) 10 mg Q3 PRN IV ELEVATED BLOOD PRESSURE Last administered on 01/27/17 02:04; Admin Dose 10 MG; Start 01/19/17 at 02:30 Diagnostic Test (Pha) (Accu-Chek) 1 ea 02 XX Last administered on 01/27/17 02: 01; Admin Dose 1 EA; Start 01/20/17 at 02:00 Insulin Aspart (Novolog Insulin Pen) NOVOLOG *MILD* ALGORI... Q4 SC Last administered on 01/31/17 05:57; Admin Dose 2 UNIT; Start 01/19/17 at 09:00 Miscellaneous Information 1 ea NOTE XX ; Start 01/19/17 at 09:00 Glucose (Glutose) 15 gm Q15M PRN PO DECREASED GLUCOSE; Start 01/19/17 at 09:00 Glucose (Glutose) 22.5 gm Q15M PRN PO DECREASED GLUCOSE; Start 01/19/17 at 09:00 Dextrose (D50w Syringe) 25 ml Q15M PRN IV DECREASED GLUCOSE; Start 01/19/17 at 09:00 Dextrose (D50w Syringe) 50 ml Q15M PRN IV DECREASED GLUCOSE; Start 01/19/17 at 09:00 Glucagon (Glucagen) 1 mg Q15M PRN IM DECREASED GLUCOSE; Start 01/19/17 at 09:00 Glucose (Glutose) 15 gm Q15M PRN BUCCAL DECREASED GLUCOSE; Start 01/19/17 at 09: 00 IV Flush (NS 10 ml) 10 ml PRN PRN IV FLUSH LINE; Start 01/19/17 at 12:00 Diphenhydramine HCl (Benadryl Liquid Cup) 25 mg QHS PRN NGT ITCHING; Start 01/19 at 21:00 Hydralazine HCl (Apresoline) 25 mg Q4H PRN NGT hypertension Last administered on 01/25/17 12:17; Admin Dose 25 MG; Start 01/19/17 at 20:30 Acetaminophen/ Hydrocodone Bitart ([place] (5/325)) 1 tab Q6H PRN NGT MODERATE PAIN LEVEL 4-6; Start 01/20/17 at 02:30 Magnesium Hydroxide (Milk Of Mag) 30 ml DAILY PRN NGT CONSTIPATION; Start at 20:30 Acetaminophen (Tylenol Liquid) 1,000 mg Q4H PRN NGT PAIN AND OR ELEVATED TEMP; Start 01/19/17 at 20:30; Status Future Hold Docusate Sodium (Colace Liquid Cup) 100 mg TID NGT Last administered on 21:47; Admin Dose 100 MG; Start 01/19/17 at 21:00 Lorazepam 2 mg 2 mg Q6H PRN IV before LP and MRI Last administered on 01/23/17 11:28; Admin Dose 2 MG; Start 01/20/17 at 00:00 Fentanyl (Sublimaze) 100 ml @ 2.5 mls/hr TITRATE IV Last administered on 06:48; Admin Dose 5 MLS/HR; Start 01/20/17 at 10:00 Lansoprazole 30 mg 30 mg DAILY@06 NGT Last administered on 01/31/17 06:00; Admin Dose 30 MG; Start 01/21/17 at 06:00 Norepinephrine 16 mg/Dextrose 500 ml @ 1.87 mls/hr TITRATE IV ; Start 01/20/17 at 17:30 Midazolam HCl (Versed) 50 ml @ 1 mls/hr TITRATE IV Last administered on 07:46; Admin Dose 6 MLS/HR; Start 01/23/17 at 09:30 Heparin Sodium (Porcine) (Heparin (5000 Units/0.5 ml)) 5,000 unit BID SC Last administered on 01/30/17 21:48; Admin Dose 5,000 UNIT; Start 01/24/17 at 21:00 Insulin Glargine (Lantus) 10 unit DAILY@08 SC Last administered on 01/30/17 09 :14; Admin Dose 10 UNIT; Start 01/25/17 at 14:30 Hydralazine HCl (Apresoline) 50 mg TID NGT Last administered on 01/30/17 21:47 ; Admin Dose 50 MG; Start 01/26/17 at 21:00 Metoprolol Tartrate 100 mg 100 mg BID NGT Last administered on 01/30/17 21:47 ; Admin Dose 100 MG; Start 01/26/17 at 21:00 Sodium Chloride (NS) 1,000 ml @ 0 mls/hr Q0M IV Last administered on 07:00; Admin Dose 10 MLS/HR; Start 01/27/17 at 12:00 Dexamethasone (Decadron) 4 mg Q6 IV Last administered on 01/31/17 06:00; Admin Dose 4 MG; Start 01/30/17 at 18:00 HONEY RAM DO Jan 31, 2017 09:03
[2017-01-31] MEDS: FEBUXOSTAT 40 MG TABLET PO SCH (09:44)
[2017-01-31] MEDS: DOCUSATE SODIUM 10 MG/ML (10ML CUP) NGT SCH ×3 (09:45→21:17)
[2017-01-31] MEDS: NICOTINE (14 MG/24 HR) PATCH TRANSDERM SCH (09:45)
[2017-01-31] MEDS: INSULIN GLARGINE [LANtus] 3 ML PEN SC SCH ×2 (09:50→21:24)
[2017-01-31] MEDS: FENTAnyl (DRIP) 1000 mcg/100mL 100 ML IV SCH (13:27)
--- NOTE | 2017-01-31 15:01 | RADRPT ---
PROCEDURE: US Abdomen (right upper quadrant). CLINICAL INDICATION: Elevated liver function tests. TECHNIQUE: Multiple real-time longitudinal and transverse images of the right upper quadrant of th e abdomen were acquired utilizing a curved array transducer. Images were reviewed on a high-resoluti on PACS workstation. COMPARISON: None FINDINGS: The liver is normal in size and normal in echogenicity. There is a hyperechoic nodule anteriorly in the right hepatic lobe measuring 1.0 x 0.7 x 1 1 cm. The re is no other focal hepatic lesion. Color Doppler and pulsed Doppler sonography demonstrate normal antegrade flow in the portal vein. The gallbladder contains gallstones. The gallbladder is otherwise normal with no wall thickening. T here is no pericholecystic fluid collection. The bile ducts are normal with the common bile duct measuring 3.0 mm in diameter. The visualized portions of the pancreas are unremarkable with obscuration of the tail of the pancrea s. No free fluid is present. The right kidney measures 9.6 cm. There is normal echogenicity of the right kidney. There is no p erinephric fluid collection. No hydronephrosis, mass, or calculus is seen. IMPRESSION: 1. Hyperechoic nodule in the right hepatic lobe measuring 1.1 cm in maximal dimension. Follow-up ul trasound in 6 months is advised. 2. Gallstones in the gallbladder. No evidence of cholecystitis. 3. Otherwise unremarkable study. RPTAT: QQ .Caden Cerna MD, Date Time Electronically viewed and signed by .Caden Cerna MD, on 01/31/2017 15:01 .R/
--- NOTE | 2017-01-31 15:31 | CONS ---
Date/Time of Note Date/Time of Note DATE: 01/31/17 TIME: 15:21 Consult Date/Type/Reason Admit Date/Time Jan 17, 2017 at 17:33 Initial Consult Date Type of Consultation: Pulm/CCM Subjective Remains on non-responsive on mech vent with evidence of worsening end-organ fxn Objective Vital Signs Date Time Temp Pulse Resp B/P Pulse Ox O2 Delivery O2 Flow Rate FiO2 01/31/17 14:00 76 20 103/62 100 01/31/17 12:00 30 01/31/17 12:00 98.1 01/31/17 06:00 Mechanical Ventilator Intake and Output 01/30/17 01/30/17 01/31/17 15:00 23:00 07:00 Intake Total 496 ml 350 ml 800 ml Output Total 463 ml 489 ml 772 ml Balance 33 ml -139 ml 28 ml Exam HEENT: Neck supple; no JVD; no LAD; + ET tube CVS: RRR, S1 and S2 CHEST: Clear ABD: Soft, NT, + BS EXT: No c/c/e NEURO: Unresponsive on vent. ? Decerebrate posturing. Minimal pupillary reflex noted. Overbreathing vent. Results/Medications Result Diagram: 01/30/17 0430 01/30/17 0430 Results 24 hrs Laboratory Tests Test 01/30/17 17:22 01/30/17 21:42 01/31/17 01:16 01/31/17 04:30 Bedside Glucose 118 204 246 H Total Bilirubin 0.1 L Direct Bilirubin 0.00 Indirect Bilirubin 0.1 Aspartate Amino Transf (AST/SGOT) 107 H Alanine Aminotransferase (ALT/SGPT) 154 H Alkaline Phosphatase 250 H Total Protein 7.1 Albumin 3.2 L Test 01/31/17 05:55 01/31/17 08:56 01/31/17 13:24 Bedside Glucose 207 191 212 Medications Current Medications Ondansetron HCl (Zofran Inj) 4 mg Q6H PRN IV NAUSEA AND/OR VOMITING; Start 01/17 at 14:30 Morphine Sulfate (morphine) 2 mg Q4H PRN IV SEVERE PAIN LEVEL 7-10 Last administered on 01/31/17t 07:22; Admin Dose 2 MG; Start 01/17/17 at 14:30 Docusate Sodium (Colace) 100 mg Q12H PRN PO CONSTIPATION; Start 01/17/17 at 14: 30 Febuxostat (Uloric) 40 mg DAILY PO Last administered on 01/31/17 09:44; Admin Dose 40 MG; Start 01/18/17 at 09:00 Diphenhydramine HCl (Benadryl) 25 mg Q4H PRN IV CHILLS; Start 01/17/17 at 18:30 Diltiazem HCl (Cardizem Cd) 240 mg DAILY PO Last administered on 01/30/17 09: 11; Admin Dose 240 MG; Start 01/17/17 at 18:30 Nicotine 1 patch 1 patch DAILY TRANSDERM Last administered on 01/31/17 09:45; Admin Dose 1 PATCH; Start 01/18/17 at 10:30 Acetaminophen (Ofirmev 1000mg/ 100ml Iv) 100 ml @ 400 mls/hr Q4 PRN IVPB FEVER GREATER THAN 100.6 Last administered on 01/23/17 14:09; Admin Dose 400 MLS /HR; Start 01/19/17 at 00:30 Hydralazine HCl (Apresoline) 10 mg Q4H PRN IV hypertension Last administered on 01/27/17 22:20; Admin Dose 10 MG; Start 01/19/17 at 01:00 Labetalol HCl (Labetalol) 20 mg Q3 PRN IV ELEVATED BLOOD PRESSURE Last administered on 01/27/17 11:12; Admin Dose 20 MG; Start 01/19/17 at 02:30 Labetalol HCl (Labetalol) 10 mg Q3 PRN IV ELEVATED BLOOD PRESSURE Last administered on 01/27/17 02:04; Admin Dose 10 MG; Start 01/19/17 at 02:30 Diagnostic Test (Pha) (Accu-Chek) 1 ea 02 XX Last administered on 01/27/17 02: 01; Admin Dose 1 EA; Start 01/20/17 at 02:00 Insulin Aspart (Novolog Insulin Pen) NOVOLOG *MILD* ALGORI... Q4 SC Last administered on 01/31/17 13:30; Admin Dose 2 UNIT; Start 01/19/17 at 09:00 Miscellaneous Information 1 ea NOTE XX ; Start 01/19/17 at 09:00 Glucose (Glutose) 15 gm Q15M PRN PO DECREASED GLUCOSE; Start 01/19/17 at 09:00 Glucose (Glutose) 22.5 gm Q15M PRN PO DECREASED GLUCOSE; Start 01/19/17 at 09:00 Dextrose (D50w Syringe) 25 ml Q15M PRN IV DECREASED GLUCOSE; Start 01/19/17 at 09:00 Dextrose (D50w Syringe) 50 ml Q15M PRN IV DECREASED GLUCOSE; Start 01/19/17 at 09:00 Glucagon (Glucagen) 1 mg Q15M PRN IM DECREASED GLUCOSE; Start 01/19/17 at 09:00 Glucose (Glutose) 15 gm Q15M PRN BUCCAL DECREASED GLUCOSE; Start 01/19/17 at 09: 00 IV Flush (NS 10 ml) 10 ml PRN PRN IV FLUSH LINE; Start 01/19/17 at 12:00 Diphenhydramine HCl (Benadryl Liquid Cup) 25 mg QHS PRN NGT ITCHING; Start 01/19 at 21:00 Hydralazine HCl (Apresoline) 25 mg Q4H PRN NGT hypertension Last administered on 01/25/17 12:17; Admin Dose 25 MG; Start 01/19/17 at 20:30 Acetaminophen/ Hydrocodone Bitart ([place] (5/325)) 1 tab Q6H PRN NGT MODERATE PAIN LEVEL 4-6; Start 01/20/17 at 02:30 Magnesium Hydroxide (Milk Of Mag) 30 ml DAILY PRN NGT CONSTIPATION; Start at 20:30 Acetaminophen (Tylenol Liquid) 1,000 mg Q4H PRN NGT PAIN AND OR ELEVATED TEMP; Start 01/19/17 at 20:30; Status Future Hold Docusate Sodium (Colace Liquid Cup) 100 mg TID NGT Last administered on 13:23; Admin Dose 100 MG; Start 01/19/17 at 21:00 Lorazepam 2 mg 2 mg Q6H PRN IV before LP and MRI Last administered on 01/23/17 11:28; Admin Dose 2 MG; Start 01/20/17 at 00:00 Fentanyl (Sublimaze) 100 ml @ 2.5 mls/hr TITRATE IV Last administered on 13:27; Admin Dose 7.5 MLS/HR; Start 01/20/17 at 10:00 Lansoprazole 30 mg 30 mg DAILY@06 NGT Last administered on 01/31/17 06:00; Admin Dose 30 MG; Start 01/21/17 at 06:00 Norepinephrine 16 mg/Dextrose 500 ml @ 1.87 mls/hr TITRATE IV ; Start 01/20/17 at 17:30 Midazolam HCl (Versed) 50 ml @ 1 mls/hr TITRATE IV Last administered on 07:46; Admin Dose 6 MLS/HR; Start 01/23/17 at 09:30 Heparin Sodium (Porcine) (Heparin (5000 Units/0.5 ml)) 5,000 unit BID SC Last administered on 01/30/17 21:48; Admin Dose 5,000 UNIT; Start 01/24/17 at 21:00 Insulin Glargine (Lantus) 10 unit DAILY@08 SC Last administered on 01/31/17 09 :50; Admin Dose 10 UNIT; Start 01/25/17 at 14:30 Hydralazine HCl (Apresoline) 50 mg TID NGT Last administered on 01/30/17 21:47 ; Admin Dose 50 MG; Start 01/26/17 at 21:00 Metoprolol Tartrate 100 mg 100 mg BID NGT Last administered on 01/30/17 21:47 ; Admin Dose 100 MG; Start 01/26/17 at 21:00 Sodium Chloride (NS) 1,000 ml @ 0 mls/hr Q0M IV Last administered on 07:00; Admin Dose 10 MLS/HR; Start 01/27/17 at 12:00 Dexamethasone (Decadron) 4 mg Q6 IV Last administered on 01/31/17 13:23; Admin Dose 4 MG; Start 01/30/17 at 18:00 Assessment/Plan Additional Assessment/Plan IMP: 1. Progressive Encephalitis--s/p extensive non-diagnostic work-up. Etiological considerations remain very rare conditions such as auto-immune or para- neoplastic encephalitis vs. PML associated with rituximab. 2. VDRF--due to #1 3. HEIDI 4. Transaminitis 5. H/O GPA RECS: 1. Corticosteroids given possibility of auto-immune encephalitis as well as possible vasogenic edema 2. Vent support 3. Would consider repeat brain imaging soon 4. Am CXR/ABG 35 min cc time KAMANGAR,GRACIELA MD Jan 31, 2017 15:31
--- NOTE | 2017-01-31 16:02 | CONS ---
Date/Time of Note Date/Time of Note DATE: 01/31/17 TIME: 15:52 Assessment/Plan Assessment/Plan Chief Complaint/Hosp Course ID PROGRESS NOTE CURRENT ABX: OFF ABX BRIEF HPI SUMMARY * Appreciate pulmonary (Dr. Osullivan's note) quoting: " Progressive Encephalitis --s/p extensive non-diagnostic work-up. Etiological considerations remain very rare conditions such as auto-immune or para-neoplastic encephalitis vs. PML associated with rituximab." * Acute meningoencephalitis w/ now with respiratory failure, orally intubated, non-communicative, acute renal failure/CKD, pressors * WBC 11.6, S.Cr 2.8, (+)Transaminitis * 01/30/17 CXR: No focal evidence of PNA: Improved aeration of the left lower lobe when compared to the prior examination. * 01/31/17 Liver SENTHIL: IMPRESSION: * 1. Hyperechoic nodule in the right hepatic lobe measuring 1.1 cm in maximal dimension. Follow-up ultrasound in 6 months is advised. * 2. Gallstones in the gallbladder. No evidence of cholecystitis. * 3. Otherwise unremarkable study. EXAM GEN: 66 yo M, VDRF, noncommunicative HEENT:ETT-> secure to Vent NECK: supple CVS: RRR CHEST: Equal chest rise bilaterally with course BS ABD: Soft, NT, + BS EXT: No c/c/e NEURO: Grossly intact, moves all extremities SKIN: No diaphoresis, no obvious rash ID ASSESSMENT 66 yo Ivorian speaking M admit with: 1. Hypotensive shock -> SIRS w/fevers/chills, malaise, fatigue, headache, double vision w/ TMax 101.7, leukocytosis, 12.5, VSS, ESR 10 => Fever unknown origin * DDx = meningoencephalitis, status post lumbar puncture done twice with cerebrospinal fluid cultures and Gram stain being negative, Guerda ink negative. Herpes simplex virus by polymerase chain reaction negative. Cocci negative. West Nile virus negative, RPR/VDRL(-); patient completed treatment with broad- spectrum antibiotics since admission for possible bacterial meningitis. (-) Viral panel Ab, (-)Bacterial Ab. * 01/17 BCx (-) * 01/17 UA (-) * 01/17 INFLUENZA A & B BY EIA Final INFLU A&B BY EIA INFLUENZA A NEGATIVE (Ref Range Neg) INFLUENZA B NEGATIVE (Ref Range Neg) 2. Immunocompromised Host 2/2 [place]'s granulomatosis * Rx Rituxin Q 6 mos * Current ESR 10, CRP 0.9 3. Acute respiratory failure due to acute encephalopathy 4. COPD w/ hx of current + jail tobaccoism 5. Hx of Lung cancer status post resection 9-yrs ago 6. CKD=> Worsening renal failure w/plan to start HD 7. HTN 8. Gout (- ) MRSA Nares INVASIVES: PIV CURRENT ABX: OFF ABX ID RECOMMENDATIONS 1. Has completed course of ABX, all micro negative, now with acute worsening renal failure to start HD * Per notes, plan is to keep him OFF ABX unless clinical indicators for bacterial sepsis manifest 2. Appreciate pulmonary (Dr. Osullivan's note) quoting: * " Progressive Encephalitis--s/p extensive non-diagnostic work-up. Etiological considerations remain very rare conditions such as auto-immune or para- neoplastic encephalitis vs. PML associated with rituximab." * => Recommendation for repeat Neuro-Imaging, consideration steroids noted. . Problems: Consultation Date/Type/Reason Admit Date/Time Jan 17, 2017 at 17:33 Type of Consultation: ID Exam/Review of Systems Vital Signs Vitals Vital Signs Date Time Temp Pulse Resp B/P Pulse Ox O2 Delivery O2 Flow Rate FiO2 01/31/17 14:00 76 20 103/62 100 01/31/17 12:00 30 01/31/17 12:00 98.1 01/31/17 06:00 Mechanical Ventilator Intake and Output 01/30/17 01/30/17 01/31/17 15:00 23:00 07:00 Intake Total 496 ml 350 ml 800 ml Output Total 463 ml 489 ml 772 ml Balance 33 ml -139 ml 28 ml Results Result Diagram: 01/30/17 0430 01/30/17 0430 Results 24 hrs Laboratory Tests Test 01/30/17 17:22 01/30/17 21:42 01/31/17 01:16 01/31/17 04:30 Bedside Glucose 118 204 246 H Total Bilirubin 0.1 L Direct Bilirubin 0.00 Indirect Bilirubin 0.1 Aspartate Amino Transf (AST/SGOT) 107 H Alanine Aminotransferase (ALT/SGPT) 154 H Alkaline Phosphatase 250 H Total Protein 7.1 Albumin 3.2 L Test 01/31/17 05:55 01/31/17 08:56 01/31/17 13:24 Bedside Glucose 207 191 212 Medications Medications Current Medications Ondansetron HCl (Zofran Inj) 4 mg Q6H PRN IV NAUSEA AND/OR VOMITING; Start 01/17 at 14:30 Morphine Sulfate (morphine) 2 mg Q4H PRN IV SEVERE PAIN LEVEL 7-10 Last administered on 01/31/17 07:22; Admin Dose 2 MG; Start 01/17/17 at 14:30 Docusate Sodium (Colace) 100 mg Q12H PRN PO CONSTIPATION; Start 01/17/17 at 14: 30 Febuxostat (Uloric) 40 mg DAILY PO Last administered on 01/31/17 09:44; Admin Dose 40 MG; Start 01/18/17 at 09:00 Diphenhydramine HCl (Benadryl) 25 mg Q4H PRN IV CHILLS; Start 01/17/17 at 18:30 Diltiazem HCl (Cardizem Cd) 240 mg DAILY PO Last administered on 01/30/17 09: 11; Admin Dose 240 MG; Start 01/17/17 at 18:30 Nicotine 1 patch 1 patch DAILY TRANSDERM Last administered on 01/31/17 09:45; Admin Dose 1 PATCH; Start 01/18/17 at 10:30 Acetaminophen (Ofirmev 1000mg/ 100ml Iv) 100 ml @ 400 mls/hr Q4 PRN IVPB FEVER GREATER THAN 100.6 Last administered on 01/23/17 14:09; Admin Dose 400 MLS /HR; Start 01/19/17 at 00:30 Hydralazine HCl (Apresoline) 10 mg Q4H PRN IV hypertension Last administered on 01/27/17 22:20; Admin Dose 10 MG; Start 01/19/17 at 01:00 Labetalol HCl (Labetalol) 20 mg Q3 PRN IV ELEVATED BLOOD PRESSURE Last administered on 01/27/17 11:12; Admin Dose 20 MG; Start 01/19/17 at 02:30 Labetalol HCl (Labetalol) 10 mg Q3 PRN IV ELEVATED BLOOD PRESSURE Last administered on 01/27/17 02:04; Admin Dose 10 MG; Start 01/19/17 at 02:30 Diagnostic Test (Pha) (Accu-Chek) 1 ea 02 XX Last administered on 01/27/17 02: 01; Admin Dose 1 EA; Start 01/20/17 at 02:00 Insulin Aspart (Novolog Insulin Pen) NOVOLOG *MILD* ALGORI... Q4 SC Last administered on 01/31/17 13:30; Admin Dose 2 UNIT; Start 01/19/17 at 09:00 Miscellaneous Information 1 ea NOTE XX ; Start 01/19/17 at 09:00 Glucose (Glutose) 15 gm Q15M PRN PO DECREASED GLUCOSE; Start 01/19/17 at 09:00 Glucose (Glutose) 22.5 gm Q15M PRN PO DECREASED GLUCOSE; Start 01/19/17 at 09:00 Dextrose (D50w Syringe) 25 ml Q15M PRN IV DECREASED GLUCOSE; Start 01/19/17 at 09:00 Dextrose (D50w Syringe) 50 ml Q15M PRN IV DECREASED GLUCOSE; Start 01/19/17 at 09:00 Glucagon (Glucagen) 1 mg Q15M PRN IM DECREASED GLUCOSE; Start 01/19/17 at 09:00 Glucose (Glutose) 15 gm Q15M PRN BUCCAL DECREASED GLUCOSE; Start 01/19/17 at 09: 00 IV Flush (NS 10 ml) 10 ml PRN PRN IV FLUSH LINE; Start 01/19/17 at 12:00 Diphenhydramine HCl (Benadryl Liquid Cup) 25 mg QHS PRN NGT ITCHING; Start 01/19 at 21:00 Hydralazine HCl (Apresoline) 25 mg Q4H PRN NGT hypertension Last administered on 01/25/17 12:17; Admin Dose 25 MG; Start 01/19/17 at 20:30 Acetaminophen/ Hydrocodone Bitart ([place] (5/325)) 1 tab Q6H PRN NGT MODERATE PAIN LEVEL 4-6; Start 01/20/17 at 02:30 Magnesium Hydroxide (Milk Of Mag) 30 ml DAILY PRN NGT CONSTIPATION; Start at 20:30 Acetaminophen (Tylenol Liquid) 1,000 mg Q4H PRN NGT PAIN AND OR ELEVATED TEMP; Start 01/19/17 at 20:30; Status Future Hold Docusate Sodium (Colace Liquid Cup) 100 mg TID NGT Last administered on 13:23; Admin Dose 100 MG; Start 01/19/17 at 21:00 Lorazepam 2 mg 2 mg Q6H PRN IV before LP and MRI Last administered on 01/23/17 11:28; Admin Dose 2 MG; Start 01/20/17 at 00:00 Fentanyl (Sublimaze) 100 ml @ 2.5 mls/hr TITRATE IV Last administered on 13:27; Admin Dose 7.5 MLS/HR; Start 01/20/17 at 10:00 Lansoprazole 30 mg 30 mg DAILY@06 NGT Last administered on 01/31/17 06:00; Admin Dose 30 MG; Start 01/21/17 at 06:00 Norepinephrine 16 mg/Dextrose 500 ml @ 1.87 mls/hr TITRATE IV ; Start 01/20/17 at 17:30 Midazolam HCl (Versed) 50 ml @ 1 mls/hr TITRATE IV Last administered on 07:46; Admin Dose 6 MLS/HR; Start 01/23/17 at 09:30 Heparin Sodium (Porcine) (Heparin (5000 Units/0.5 ml)) 5,000 unit BID SC Last administered on 01/30/17 21:48; Admin Dose 5,000 UNIT; Start 01/24/17 at 21:00 Hydralazine HCl (Apresoline) 50 mg TID NGT Last administered on 01/30/17 21:47 ; Admin Dose 50 MG; Start 01/26/17 at 21:00 Metoprolol Tartrate 100 mg 100 mg BID NGT Last administered on 01/30/17 21:47 ; Admin Dose 100 MG; Start 01/26/17 at 21:00 Sodium Chloride (NS) 1,000 ml @ 0 mls/hr Q0M IV Last administered on 07:00; Admin Dose 10 MLS/HR; Start 01/27/17 at 12:00 Dexamethasone (Decadron) 4 mg Q6 IV Last administered on 01/31/17 13:23; Admin Dose 4 MG; Start 01/30/17 at 18:00 Insulin Glargine (Lantus) 10 unit Q12 SC ; Start 01/31/17 at 21:00 RADHA SHAH NP Jan 31, 2017 16:02
--- NOTE | 2017-01-31 17:38 | PN ---
DATE: 01/31/2017 SUBJECTIVE DATA: Patient seen status post initiation IV Decadron. The patient more opens his eyes at times. Moving his upper extremities at times as discussed with nursing staff. Patient is status post hemodialysis today. Blood pressure noted to be slightly on the low side, 90s to low 100. The patient is afebrile. OBJECTIVE DATA: VITAL SIGNS: Temperature 98.1, pulse 76, respirations 20, saturation 100 percent on 30 percent FiO2. GENERAL: The patient is in no acute distress. Patient resting comfortably. HEENT: Opens his eyes. Not following commands. Not communicative. CARDIOVASCULAR: S1, S2. LUNGS: Lungs decreased bilaterally. ABDOMEN: Soft, nontender. EXTREMITIES: Trace to plus 1 edema upper in upper and lower extremities. LABS: No new labs today. Labs from yesterday were all reviewed. Last glucose level 212, 191, and 207. Patient is on Decadron. The patient's CSF culture results from 01/27/2017 is negative. The patient's CSF serologies did not and reveal any acute finding so far. MEDICATIONS: Reviewed, include the followin. Decadron 4 mg IV every 6. 2. Hydralazine 50 mg 3 times a day. 3. Lopressor 100 twice a day. 4. Lantus 10 units daily. 5. Heparin 5000 units twice a day. 6. as directed. 7. Prevacid 10 mg daily. 8. Levophed currently off. 9. Harris as needed. 10. Accu-Chek is directly. 11. Ativan as needed. 12. Benadryl as needed. 13. Colace 100 3 times a day. 14. Hydralazine as needed. 15. Milk of magnesia as needed. 16. Hypoglycemia protocol as directed. 17. Labetalol as needed. 18. Tylenol as needed. 19. Breathing treatments as needed. 20. Zofran, morphine, Colace as needed. 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 Unfortunately, progressively with worsening encephalopathy requiring mechanical ventilation. 1. Respiratory. Continue AC mode now on full sedation with Versed and fentanyl to keep him comfortable. May need trach. 2. Cardiovascular. Now that he is on sedation is blood pressure is on the low normal side. May discontinue some medications and observe. 3. Renal status post dialysis. Monitor electrolytes in the a.m. 4. Encephalopathy likely from encephalitis due to possible viral meningitis such as SO virus causing progressive multifocal leukoencephalopathy (PML) versus other causes. 5. Hyperglycemia. Worse because of steroids increased insulin further. 6. Continue Protonix for gastrointestinal (GI) prophylaxis. 7. Abbi's granulomatosis. Rheumatology is following. 8. Dysphagia. Continue OG feeding may need G-tube feeding soon. 9. Elevated liver enzymes. Ultrasound of the liver did not reveal any acute findings. Basically showing hyperechoic nodule in the right hepatic lobe measuring 1.1 cm in maximum dimension. 10. Infectious Disease. Currently off antivirals and antibacterial. Prognosis is guarded. Case discussed with . . We will follow. Dictated By: Gurwinder Triplett MD /[email or web address] /Document#: [id number]
[2017-02-01] VITALS (42 sets, daily range): BP systolic 89–176; BP diastolic 60–121; PULSE 30–98; RESP 13–35
[2017-02-01] MEDS: DEXAMETHASONE 4 MG/ML 1 ML INJ IV SCH ×4 (01:14→17:33)
[2017-02-01] MEDS: INSULIN ASPART [NOVOLOG] 3 ML PEN SC SCH ×6 (01:22→21:35)
[2017-02-01] MEDS: ACCU-CHEK XX SCH (01:23)
[2017-02-01] MEDS: MIDAZOLAM (DRIP) 50 mg/50 mL 50 ML IV SCH ×3 (02:04→22:47)
[2017-02-01 05:11] LABS: ABNORMAL IP MESSAGE 1; BASOPHIL # 0.1 10^3/ul (0.0-0.1); BASOPHILS % 0.3 % (0.0-2.0); EOSINOPHILS % 0.1 % (0.0-7.0); HEMATOCRIT 20.9 % (42.0-52.0); LYMPHOCYTES # 1.2 10^3/ul (0.8-2.9); LYMPHOCYTES % 7.7 % (15.0-51.0); MEAN CORPUSCULAR HEMOGLOBIN 27.6 pg (29.0-33.0); MEAN CORPUSCULAR HGB CONC 33.5 g/dl (32.0-37.0); MEAN CORPUSCULAR VOLUME 82.3 fl (82.0-101.0); MONOCYTE # 1.1 10^3/ul (0.3-0.9); MONOCYTES % 7.2 % (0.0-11.0); NEUTROPHIL # 12.3 10^3/ul (1.6-7.5); NEUTROPHILS % 81.5 % (39.0-77.0); NUCLEATED RED BLOOD CELLS # 1.4 10^3/ul (0.0-0.0); PLATELET COUNT 95 10^3/UL (140-415); POSITIVE DIFF @See below; RED BLOOD COUNT 2.54 10^6/ul (4.70-6.10); RED CELL DISTRIBUTION WIDTH 19.5 % (11.5-14.5); WHITE BLOOD COUNT 15.1 10^3/ul (4.8-10.8)
[2017-02-01 05:27] LABS: AADO2 Arterial 86.7 mmHg (7.0-24.0); Allen Test ACCEPTAB; Arterial Base Excess 3.5 mmol/L (-3.0-3); Arterial COHb 0.3 % (0.0-3.0); Arterial Fraction of Oxyhgb 95.3 % (93.0-99.0); Arterial MetHb 0.3 % (0.0-1.5); MODE VENT - AC
[2017-02-01 05:39] LABS: ALBUMIN 2.5 g/dl (3.3-4.9); ALBUMIN/GLOBULIN RATIO 0.78; BILIRUBIN,INDIRECT 0.1 mg/dl (0-1.1); BILIRUBIN,TOTAL 0.1 mg/dl (0.2-1.3); CALCIUM 8.6 mg/dl (8.4-10.2); CREATININE 2.62 mg/dl (0.61-1.24); POTASSIUM 3.9 mmol/L (3.5-5.1); TOTAL PROTEIN 5.7 g/dl (6.1-8.1)
[2017-02-01] MEDS: LANSOPRAZOLE 30 MG CAP NGT SCH (05:40)
--- NOTE | 2017-02-01 07:36 | RADRPT ---
PROCEDURE: XR Chest. CLINICAL INDICATION: Shortness of breath. TECHNIQUE: Single frontal view. COMPARISON: 01/30/2017. FINDINGS: The endotracheal tube tip is 6.5 cm above the carmen. The nasogastric tube tip is in the stomach. Th e left arm PICC line tip is in the lower superior vena cava. The lungs are clear. The heart size is normal. There is calcification in the aorta consistent with atherosclerosis. There is no pleural effusion. There is no pneumothorax. IMPRESSION: 1. No change from 01/30/2017. RPTAT: QQ .Caden Cerna MD, MD Date Time Electronically viewed and signed by .Caden Cerna MD, MD on 02/01/2017 07:36 .R/
[2017-02-01] MEDS: DOCUSATE SODIUM 10 MG/ML (10ML CUP) NGT SCH ×3 (08:22→21:32)
[2017-02-01] MEDS: NICOTINE (14 MG/24 HR) PATCH TRANSDERM SCH (08:22)
[2017-02-01] MEDS: FEBUXOSTAT 40 MG TABLET PO SCH (08:22)
[2017-02-01] MEDS: METOPROLOL 100 MG TAB NGT SCH (08:23)
[2017-02-01] MEDS: DILTIAZEM (CD) 240 MG CAP PO SCH (08:23)
[2017-02-01] MEDS: HEPARIN 5,000 UNIT/0.5 ML VIAL SC SCH ×2 (08:33→21:37)
[2017-02-01] MEDS: INSULIN GLARGINE [LANtus] 3 ML PEN SC SCH ×2 (08:56→21:36)
--- NOTE | 2017-02-01 09:13 | PN ---
DATE: 02/01/2017 SUBJECTIVE DATA: The patient had hemodialysis yesterday with 1 L removed. Patient continues to have adequate urinary output. The patient is more restless. No other acute events noted. No hemoptysis symptoms, no hematochezia. OBJECTIVE DATA: VITAL SIGNS: Blood pressure is 137/86, respirations 18, pulse 66, temperature 98.4. HEENT: Head is normocephalic. NECK: Supple. HEART: Regular rate. LUNGS: Diminished breath sounds at the base. ABDOMEN: Soft, nontender to palpation. No rebound or guarding. EXTREMITIES: Negative for clubbing, cyanosis. Trace edema. DERMATOLOGIC: Clean. No rashes. MUSCULOSKELETAL: No joint effusion. NEUROLOGIC: Limited. The patient appears more awake, but not able to follow commands. MEDICATIONS: Reviewed. LABORATORY AND DIAGNOSTIC DATA: Sodium 142, potassium 3.9, chloride 108, BUN 82, creatinine 2.62. White count 15.1, hemoglobin 7.0, hematocrit 28.9, platelet count is 95. MRI of the brain shows bilateral narrowing consistent with encephalitis. ASSESSMENT AND PLAN: 1. Nonoliguric acute kidney injury on top of chronic kidney disease with previous baseline creatinine 1.7 to 2.0 mg/dL. Etiology of acute kidney injury secondary acute tubular necrosis. The patient was initiated on hemodialysis, had hemodialysis yesterday. Plan for dialysis tomorrow. Continue to monitor for signs of renal recovery. 2. Anemia. Will give the patient Epogen. Monitor H and H levels. 3. Mineral bone disorder. Monitor calcium and phosphorus levels. 4. Hypomagnesemia secondary to acute kidney injury, improving. Continue to monitor. 5. Severe sepsis. Etiology may be secondary to encephalitis. Continue antibiotic and microbial therapy. 6. Abbi's granulomatosis status post Rituxan. Continue to monitor. Follow up with Rheumatology. 7. Ventilator dependent respiratory failure. Vent settings. ABGs reviewed. Encephalopathy. 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 leukoencephalopathy given history of a Rituxan. The patient is status post IVIG. We will defer to Neurology for further management. Possibility of West Nile is still a consideration. 9. Gastrointestinal and deep venous thrombosis prophylaxis. Dictated By: Jim Sierra DO /[email or web address] /Document#: [id number]
--- NOTE | 2017-02-01 09:39 | CONS ---
Date/Time of Note Date/Time of Note DATE: 02/01/17 TIME: 09:36 Assessment/Plan Assessment/Plan Additional Assessment/Plan Ventilator setting; AC of 14, tidal volume 500, PEEP of 5, 30% FiO2. X-ray was reviewed from today which is essentially clear. Patient is currently on Versed 2 mg/h, fentanyl drip 50 mics per minute. Patient had hemodialysis yesterday. Assessment and recommendations; 1. Patient admitted with severe meningoencephalitis with significant clinical improvement. 2. Renal failure, on hemodialysis. 3. Anemia and thrombocytopenia. Hold further sedation. Weaning from ventilator with depend upon adequate mental status recovery. Meanwhile continue current supportive care Consultation Date/Type/Reason Admit Date/Time Jan 17, 2017 at 17:33 Type of Consultation: Pulmonary/critical care 24 HR Interval Summary Free Text/Dictation Patient condition remains critical but has improved significantly over the last 24-48 hours. Patient now is readily arousable. However still remains mildly lethargic. General exam; elderly male, orally intubated, arousable, currently in no distress. Exam/Review of Systems Vital Signs Vitals Vital Signs Date Time Temp Pulse Resp B/P Pulse Ox O2 Delivery O2 Flow Rate FiO2 02/01/17 09:00 98.3 64 13 157/85 99 Mechanical Ventilator 02/01/17 08:00 30 Intake and Output 01/31/17 01/31/17 02/01/17 15:00 23:00 07:00 Intake Total 1075.0 ml 865.5 ml 785 ml Output Total 1708 ml 390 ml 356 ml Balance -633.0 ml 475.5 ml 429 ml Exam HEENT exam; supple neck, no JVD. No lymphadenopathy. Midline trachea. No thyromegaly. Orally intubated. Patient multiple carious teeth. Pupils are midsize and reactive to light. Chest exam; diminished but clear breath sound. S1-S2 audible, no murmurs. Regular rhythm. Abdomen exam; soft, no organomegaly. Bowel sounds audible. Extremity exam; no peripheral edema. Patient has a multiple ecchymosis involving upper extremities. 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 Results Result Diagram: 02/01/17 0400 02/01/17 0400 Results 24 hrs Laboratory Tests Test 01/31/17 13:24 01/31/17 17:03 01/31/17 21:20 02/01/17 01:19 Bedside Glucose 212 244 H 207 194 Test 02/01/17 04:00 02/01/17 05:00 02/01/17 05:42 02/01/17 08:39 White Blood Count 15.1 #H Red Blood Count 2.54 #L Hemoglobin 7.0 #L Hematocrit 20.9 L Mean Corpuscular Volume 82.3 Mean Corpuscular Hemoglobin 27.6 L Mean Corpuscular Hemoglobin Concent 33.5 Red Cell Distribution Width 19.5 H Platelet Count 95 L Mean Platelet Volume Neutrophils % 81.5 H Lymphocytes % 7.7 L Monocytes % 7.2 Eosinophils % 0.1 Basophils % 0.3 Nucleated Red Blood Cells % 9.0 H Neutrophils # 12.3 H Lymphocytes # 1.2 Monocytes # 1.1 H Eosinophils # 0.0 Basophils # 0.1 Nucleated Red Blood Cells # 1.4 H Sodium Level 142 Potassium Level 3.9 Chloride Level 108 Carbon Dioxide Level 32 H Anion Gap 6 L Blood Urea Nitrogen 82 H Creatinine 2.62 H Glucose Level 167 Lactic Acid Level 1.2 Calcium Level 8.6 Total Bilirubin 0.1 L Direct Bilirubin 0.00 Indirect Bilirubin 0.1 Aspartate Amino Transf (AST/SGOT) 82 H Alanine Aminotransferase (ALT/SGPT) 129 H Alkaline Phosphatase 172 H Total Protein 5.7 #L Albumin 2.5 L Globulin 3.20 Albumin/Globulin Ratio 0.78 Blood Gas Specimen Source Blood arterial Arterial Blood Date Drawn 02/01/2017 5:05:30 AM Arterial Blood pH (Temp corrected) 7.490 H Arterial Blood pCO2 (Temp correct) 36.3 Arterial Blood pO2 (Temp corrected) 84.6 Arterial Blood HCO3 27.0 H Arterial Blood Base Excess 3.5 H Arterial Blood Oxygen Saturation 95.9 George Test ACCEPTAB Arterial Blood Gas Puncture Site Right Radial Arterial Blood Carboxyhemoglobin 0.3 Arterial Blood Methemoglobin 0.3 Blood Gas A-a O2 Differential 86.7 H Oxyhemoglobin Percent 95.3 Total Hemoglobin 8.0 L Blood Gas Temperature 37.0 Blood Gas Respiration Rate 14.0 Blood Gas Actual Respiration Rate 18 Blood Gas Modality VENT - AC FiO2 30.0 Blood Gas Tidal Volume 500.0 Blood Gas Low PEEP Setting 5.0 Blood Gas Inspiratory Pressure 23.0 Blood Gas Notified Whom RTR Blood Gas Notified Time 02/01/2017 5:27:32 AM Bedside Glucose 147 197 Medications Medications Current Medications Ondansetron HCl (Zofran Inj) 4 mg Q6H PRN IV NAUSEA AND/OR VOMITING; Start 01/17 at 14:30 Morphine Sulfate (morphine) 2 mg Q4H PRN IV SEVERE PAIN LEVEL 7-10 Last administered on 01/31/17 07:22; Admin Dose 2 MG; Start 01/17/17 at 14:30 Docusate Sodium (Colace) 100 mg Q12H PRN PO CONSTIPATION; Start 01/17/17 at 14: 30 Febuxostat (Uloric) 40 mg DAILY PO Last administered on 02/01/17 08:22; Admin Dose 40 MG; Start 01/18/17 at 09:00 Diphenhydramine HCl (Benadryl) 25 mg Q4H PRN IV CHILLS; Start 01/17/17 at 18:30 Diltiazem HCl (Cardizem Cd) 240 mg DAILY PO Last administered on 02/01/17 08: 23; Admin Dose 240 MG; Start 01/17/17 at 18:30 Nicotine 1 patch 1 patch DAILY TRANSDERM Last administered on 02/01/17 08:22; Admin Dose 1 PATCH; Start 01/18/17 at 10:30 Acetaminophen (Ofirmev 1000mg/ 100ml Iv) 100 ml @ 400 mls/hr Q4 PRN IVPB FEVER GREATER THAN 100.6 Last administered on 01/23/17 14:09; Admin Dose 400 MLS /HR; Start 01/19/17 at 00:30 Hydralazine HCl (Apresoline) 10 mg Q4H PRN IV hypertension Last administered on 01/27/17 22:20; Admin Dose 10 MG; Start 01/19/17 at 01:00 Labetalol HCl (Labetalol) 20 mg Q3 PRN IV ELEVATED BLOOD PRESSURE Last administered on 01/27/17 11:12; Admin Dose 20 MG; Start 01/19/17 at 02:30 Labetalol HCl (Labetalol) 10 mg Q3 PRN IV ELEVATED BLOOD PRESSURE Last administered on 01/27/17 02:04; Admin Dose 10 MG; Start 01/19/17 at 02:30 Miscellaneous Information 1 ea NOTE XX ; Start 01/19/17 at 09:00 Glucose (Glutose) 15 gm Q15M PRN PO DECREASED GLUCOSE; Start 01/19/17 at 09:00 Glucose (Glutose) 22.5 gm Q15M PRN PO DECREASED GLUCOSE; Start 01/19/17 at 09:00 Dextrose (D50w Syringe) 25 ml Q15M PRN IV DECREASED GLUCOSE; Start 01/19/17 at 09:00 Dextrose (D50w Syringe) 50 ml Q15M PRN IV DECREASED GLUCOSE; Start 01/19/17 at 09:00 Glucagon (Glucagen) 1 mg Q15M PRN IM DECREASED GLUCOSE; Start 01/19/17 at 09:00 Glucose (Glutose) 15 gm Q15M PRN BUCCAL DECREASED GLUCOSE; Start 01/19/17 at 09: 00 IV Flush (NS 10 ml) 10 ml PRN PRN IV FLUSH LINE; Start 01/19/17 at 12:00 Diphenhydramine HCl (Benadryl Liquid Cup) 25 mg QHS PRN NGT ITCHING; Start 01/19 at 21:00 Hydralazine HCl (Apresoline) 25 mg Q4H PRN NGT hypertension Last administered on 01/25/17 12:17; Admin Dose 25 MG; Start 01/19/17 at 20:30 Acetaminophen/ Hydrocodone Bitart ([place] (5/325)) 1 tab Q6H PRN NGT MODERATE PAIN LEVEL 4-6; Start 01/20/17 at 02:30 Magnesium Hydroxide (Milk Of Mag) 30 ml DAILY PRN NGT CONSTIPATION; Start at 20:30 Acetaminophen (Tylenol Liquid) 1,000 mg Q4H PRN NGT PAIN AND OR ELEVATED TEMP; Start 01/19/17 at 20:30; Status Future Hold Docusate Sodium (Colace Liquid Cup) 100 mg TID NGT Last administered on 08:22; Admin Dose 100 MG; Start 01/19/17 at 21:00 Lorazepam 2 mg 2 mg Q6H PRN IV before LP and MRI Last administered on 01/23/17 11:28; Admin Dose 2 MG; Start 01/20/17 at 00:00 Fentanyl (Sublimaze) 100 ml @ 2.5 mls/hr TITRATE IV Last administered on 13:27; Admin Dose 7.5 MLS/HR; Start 01/20/17 at 10:00 Lansoprazole 30 mg 30 mg DAILY@06 NGT Last administered on 02/01/17 05:40; Admin Dose 30 MG; Start 01/21/17 at 06:00 Norepinephrine 16 mg/Dextrose 500 ml @ 1.87 mls/hr TITRATE IV ; Start 01/20/17 at 17:30 Midazolam HCl (Versed) 50 ml @ 1 mls/hr TITRATE IV Last administered on 02:04; Admin Dose 5 MLS/HR; Start 01/23/17 at 09:30 Heparin Sodium (Porcine) (Heparin (5000 Units/0.5 ml)) 5,000 unit BID SC Last administered on 02/01/17 08:33; Admin Dose 5,000 UNIT; Start 01/24/17 at 21:00 Hydralazine HCl (Apresoline) 50 mg TID NGT Last administered on 02/01/17 08:54 ; Admin Dose 50 MG; Start 01/26/17 at 21:00 Metoprolol Tartrate 100 mg 100 mg BID NGT Last administered on 02/01/17 08:23 ; Admin Dose 100 MG; Start 01/26/17 at 21:00 Sodium Chloride (NS) 1,000 ml @ 0 mls/hr Q0M IV Last administered on 07:00; Admin Dose 10 MLS/HR; Start 01/27/17 at 12:00 Dexamethasone (Decadron) 4 mg Q6 IV Last administered on 02/01/17 05:40; Admin Dose 4 MG; Start 01/30/17 at 18:00 Insulin Glargine (Lantus) 10 unit Q12 SC Last administered on 02/01/17 08:56; Admin Dose 10 UNIT; Start 01/31/17 at 21:00 Diagnostic Test (Pha) (Accu-Chek) 1 ea 02 XX ; Start 02/01/17 at 02:00 Insulin Aspart (Novolog Insulin Pen) NOVOLOG *MODERATE* ALGORI... Q4 SC Last administered on 02/01/17 08:57; Admin Dose 4 UNIT; Start 01/31/17 at 21:00 Epoetin Efrain (Epogen (Neserd)) 6,000 units MoWeFr@17 SC ; Start 02/01/17 at 17: 00 RATNA MORENO Feb 01, 2017 09:39
[2017-02-01] MEDS: LABETALOL HCL 20MG INJ IV PRN ×3 (10:27→22:19)
[2017-02-01 13:22] LABS: ADD UMIC YES; UR ASCORBIC ACID NEGATIVE (NEGATIVE); UR BILIRUBIN (Dip) NEGATIVE (NEGATIVE); UR BLOOD (Dip) 1+ mg/dL (NEGATIVE); UR CLARITY SLIGHTLY CLOUDY (CLEAR); UR COLOR YELLOW (YELLOW); UR GLUCOSE (Dip) 1+ mg/dL (NEGATIVE); UR KETONES (Dip) NEGATIVE (NEGATIVE); UR LEUKOCYTE ESTERASE (Dip) NEGATIVE Leu/ul (NEGATIVE); UR NITRITE (Dip) NEGATIVE (NEGATIVE); UR RBC 5 /HPF (0-5); UR SPECIFIC GRAVITY (Dip) 1.017 (1.003-1.030); UR TOTAL PROTEIN (Dip) 2+ mg/dl (NEGATIVE); UR UROBILINOGEN (Dip) NEGATIVE (NEGATIVE)
--- NOTE | 2017-02-01 13:39 | CONS ---
Date/Time of Note Date/Time of Note DATE: 02/01/17 TIME: 13:34 Consult Date/Type/Reason Admit Date/Time Jan 17, 2017 at 17:33 Type of Consultation: Rheum Subjective He has been more responsive and awake for the last 2 days. Patient is on IV Decadron as of this morning Objective Vital Signs Date Time Temp Pulse Resp B/P Pulse Ox O2 Delivery O2 Flow Rate FiO2 02/01/17 12:00 98.2 75 15 160/79 99 Mechanical Ventilator 02/01/17 11:26 30 Intake and Output 01/31/17 01/31/17 02/01/17 15:00 23:00 07:00 Intake Total 1075.0 ml 865.5 ml 792 ml Output Total 1708 ml 390 ml 356 ml Balance -633.0 ml 475.5 ml 436 ml Exam GENERAL: Intubated, looks and appears to listen SKIN: Multiple echymoses throughout- HEENT: ET Tube in place NECK: No lymphadenopathy. HEART: S1, S2. Regular rate and rhythm. LUNGS: Clear bilaterally to auscultation. ABDOMEN: Distended. EXTREMITIES: No cyanosis, no edema. MUSCULOSKELETAL: No synovitis Results/Medications Result Diagram: 02/01/17 0400 02/01/17 0400 Results 24 hrs Laboratory Tests Test 01/31/17 17:03 01/31/17 21:20 02/01/17 01:19 02/01/17 04:00 Bedside Glucose 244 H 207 194 White Blood Count 15.1 #H Red Blood Count 2.54 #L Hemoglobin 7.0 #L Hematocrit 20.9 L Mean Corpuscular Volume 82.3 Mean Corpuscular Hemoglobin 27.6 L Mean Corpuscular Hemoglobin Concent 33.5 Red Cell Distribution Width 19.5 H Platelet Count 95 L Mean Platelet Volume Neutrophils % 81.5 H Lymphocytes % 7.7 L Monocytes % 7.2 Eosinophils % 0.1 Basophils % 0.3 Nucleated Red Blood Cells % 9.0 H Neutrophils # 12.3 H Lymphocytes # 1.2 Monocytes # 1.1 H Eosinophils # 0.0 Basophils # 0.1 Nucleated Red Blood Cells # 1.4 H Sodium Level 142 Potassium Level 3.9 Chloride Level 108 Carbon Dioxide Level 32 H Anion Gap 6 L Blood Urea Nitrogen 82 H Creatinine 2.62 H Glucose Level 167 Lactic Acid Level 1.2 Calcium Level 8.6 Total Bilirubin 0.1 L Direct Bilirubin 0.00 Indirect Bilirubin 0.1 Aspartate Amino Transf (AST/SGOT) 82 H Alanine Aminotransferase (ALT/SGPT) 129 H Alkaline Phosphatase 172 H Total Protein 5.7 #L Albumin 2.5 L Globulin 3.20 Albumin/Globulin Ratio 0.78 Test 02/01/17 05:00 02/01/17 05:42 02/01/17 08:39 02/01/17 12:48 Blood Gas Specimen Source Blood arterial Arterial Blood Date Drawn 02/01/2017 5:05:30 AM Arterial Blood pH (Temp corrected) 7.490 H Arterial Blood pCO2 (Temp correct) 36.3 Arterial Blood pO2 (Temp corrected) 84.6 Arterial Blood HCO3 27.0 H Arterial Blood Base Excess 3.5 H Arterial Blood Oxygen Saturation 95.9 George Test ACCEPTAB Arterial Blood Gas Puncture Site Right Radial Arterial Blood Carboxyhemoglobin 0.3 Arterial Blood Methemoglobin 0.3 Blood Gas A-a O2 Differential 86.7 H Oxyhemoglobin Percent 95.3 Total Hemoglobin 8.0 L Blood Gas Temperature 37.0 Blood Gas Respiration Rate 14.0 Blood Gas Actual Respiration Rate 18 Blood Gas Modality VENT - AC FiO2 30.0 Blood Gas Tidal Volume 500.0 Blood Gas Low PEEP Setting 5.0 Blood Gas Inspiratory Pressure 23.0 Blood Gas Notified Whom RTR Blood Gas Notified Time 02/01/2017 5:27:32 AM Bedside Glucose 147 197 218 Medications Current Medications Ondansetron HCl (Zofran Inj) 4 mg Q6H PRN IV NAUSEA AND/OR VOMITING; Start 01/17 at 14:30 Morphine Sulfate (morphine) 2 mg Q4H PRN IV SEVERE PAIN LEVEL 7-10 Last administered on 01/31/17 07:22; Admin Dose 2 MG; Start 01/17/17 at 14:30 Docusate Sodium (Colace) 100 mg Q12H PRN PO CONSTIPATION; Start 01/17/17 at 14: 30 Febuxostat (Uloric) 40 mg DAILY PO Last administered on 02/01/17 08:22; Admin Dose 40 MG; Start 01/18/17 at 09:00 Diphenhydramine HCl (Benadryl) 25 mg Q4H PRN IV CHILLS; Start 01/17/17 at 18:30 Diltiazem HCl (Cardizem Cd) 240 mg DAILY PO Last administered on 02/01/17 08: 23; Admin Dose 240 MG; Start 01/17/17 at 18:30 Nicotine 1 patch 1 patch DAILY TRANSDERM Last administered on 02/01/17 08:22; Admin Dose 1 PATCH; Start 01/18/17 at 10:30 Acetaminophen (Ofirmev 1000mg/ 100ml Iv) 100 ml @ 400 mls/hr Q4 PRN IVPB FEVER GREATER THAN 100.6 Last administered on 01/23/17 14:09; Admin Dose 400 MLS /HR; Start 01/19/17 at 00:30 Hydralazine HCl (Apresoline) 10 mg Q4H PRN IV hypertension Last administered on 01/27/17 22:20; Admin Dose 10 MG; Start 01/19/17 at 01:00 Labetalol HCl (Labetalol) 20 mg Q3 PRN IV ELEVATED BLOOD PRESSURE Last administered on 01/27/17 11:12; Admin Dose 20 MG; Start 01/19/17 at 02:30 Labetalol HCl (Labetalol) 10 mg Q3 PRN IV ELEVATED BLOOD PRESSURE Last administered on 02/01/17 10:27; Admin Dose 10 MG; Start 01/19/17 at 02:30 Miscellaneous Information 1 ea NOTE XX ; Start 01/19/17 at 09:00 Glucose (Glutose) 15 gm Q15M PRN PO DECREASED GLUCOSE; Start 01/19/17 at 09:00 Glucose (Glutose) 22.5 gm Q15M PRN PO DECREASED GLUCOSE; Start 01/19/17 at 09:00 Dextrose (D50w Syringe) 25 ml Q15M PRN IV DECREASED GLUCOSE; Start 01/19/17 at 09:00 Dextrose (D50w Syringe) 50 ml Q15M PRN IV DECREASED GLUCOSE; Start 01/19/17 at 09:00 Glucagon (Glucagen) 1 mg Q15M PRN IM DECREASED GLUCOSE; Start 01/19/17 at 09:00 Glucose (Glutose) 15 gm Q15M PRN BUCCAL DECREASED GLUCOSE; Start 01/19/17 at 09: 00 IV Flush (NS 10 ml) 10 ml PRN PRN IV FLUSH LINE; Start 01/19/17 at 12:00 Diphenhydramine HCl (Benadryl Liquid Cup) 25 mg QHS PRN NGT ITCHING; Start 01/19 at 21:00 Hydralazine HCl (Apresoline) 25 mg Q4H PRN NGT hypertension Last administered on 01/25/17 12:17; Admin Dose 25 MG; Start 01/19/17 at 20:30 Acetaminophen/ Hydrocodone Bitart ([place] (5/325)) 1 tab Q6H PRN NGT MODERATE PAIN LEVEL 4-6; Start 01/20/17 at 02:30 Magnesium Hydroxide (Milk Of Mag) 30 ml DAILY PRN NGT CONSTIPATION; Start at 20:30 Acetaminophen (Tylenol Liquid) 1,000 mg Q4H PRN NGT PAIN AND OR ELEVATED TEMP; Start 01/19/17 at 20:30; Status Future Hold Docusate Sodium (Colace Liquid Cup) 100 mg TID NGT Last administered on 12:40; Admin Dose 100 MG; Start 01/19/17 at 21:00 Lorazepam 2 mg 2 mg Q6H PRN IV before LP and MRI Last administered on 01/23/17 11:28; Admin Dose 2 MG; Start 01/20/17 at 00:00 Fentanyl (Sublimaze) 100 ml @ 2.5 mls/hr TITRATE IV Last administered on 13:27; Admin Dose 7.5 MLS/HR; Start 01/20/17 at 10:00 Lansoprazole 30 mg 30 mg DAILY@06 NGT Last administered on 02/01/17 05:40; Admin Dose 30 MG; Start 01/21/17 at 06:00 Norepinephrine 16 mg/Dextrose 500 ml @ 1.87 mls/hr TITRATE IV ; Start 01/20/17 at 17:30 Midazolam HCl (Versed) 50 ml @ 1 mls/hr TITRATE IV Last administered on 02:04; Admin Dose 5 MLS/HR; Start 01/23/17 at 09:30 Heparin Sodium (Porcine) (Heparin (5000 Units/0.5 ml)) 5,000 unit BID SC Last administered on 02/01/17 08:33; Admin Dose 5,000 UNIT; Start 01/24/17 at 21:00 Hydralazine HCl (Apresoline) 50 mg TID NGT Last administered on 02/01/17 12:40 ; Admin Dose 50 MG; Start 01/26/17 at 21:00 Metoprolol Tartrate 100 mg 100 mg BID NGT Last administered on 02/01/17 08:23 ; Admin Dose 100 MG; Start 01/26/17 at 21:00 Sodium Chloride (NS) 1,000 ml @ 0 mls/hr Q0M IV Last administered on 07:00; Admin Dose 10 MLS/HR; Start 01/27/17 at 12:00 Dexamethasone (Decadron) 4 mg Q6 IV Last administered on 02/01/17 12:40; Admin Dose 4 MG; Start 01/30/17 at 18:00 Insulin Glargine (Lantus) 10 unit Q12 SC Last administered on 02/01/17 08:56; Admin Dose 10 UNIT; Start 01/31/17 at 21:00 Diagnostic Test (Pha) (Accu-Chek) 1 ea 02 XX ; Start 02/01/17 at 02:00 Insulin Aspart (Novolog Insulin Pen) NOVOLOG *MODERATE* ALGORI... Q4 SC Last administered on 02/01/17 12:52; Admin Dose 4 UNIT; Start 01/31/17 at 21:00 Epoetin Efrain (Epogen (Neserd)) 6,000 units MoWeFr@17 SC ; Start 02/01/17 at 17: 00 Assessment/Plan Chief Complaint/Hosp Course IMPRESSION AND PLAN: 66-year-old male with history of hypertension, adenocarcinoma of the lung, gout and Abbi's that has affected his small bowel and his kidneys now presenting with a 1-week history of fevers, chills, generalized weakness and confusiont. He has been intubated after having some respiratory distress that pulmonary feels is more central in etiology 1. Respiratory failure- most likely central in Etiology. Now MRI shows cerebellar encephalitis- now more alert. Plan on eventual weaning off ventilator 2. Fevers now resolved on antibiotics. WBC scan negative Patient had been given some IV steroids and IVIG without any change. LP results pendin MRI results pedning. 3. Abbi's. The patient is currently on Rituxan which is an immunosuppressant. Again, this puts him at risk for opportunistic infections, so for this reason, I would consider him more at risk of having infection as a cause of a fever. Also his Abbi's has been very well controlled since his diagnosis, he has never had a flare, he has never been hospitalized, with Cytoxan and now Rituxan, I feel like it is unlikely that it would be a Abbi's flare. 4 History of gout. Uric acid levels are low. There is no joint swelling. No joint pain. 5 Acute on Chronic kidney disease, likely secondary to infection. Now getting HD I Problems: SHIRLEY MORALES MD Feb 01, 2017 13:39
--- NOTE | 2017-02-01 15:24 | PN ---
DATE: 02/01/2017 SUBJECTIVE DATA: No acute events overnight. The patient is off sedation. Lethargic, but opens eyes to voice and follows simple commands. He is in no distress. Temperature 98.3, pulse is respirations 17, blood pressure 157/85, saturation 100 on 30 percent. LABORATORY AND DIAGNOSTIC DATA: WBC 15.1. H and H 7 and 20.9, platelets 95,000. Neutrophils 81.5. BUN 80, creatinine 2.62. Chest x-ray this morning revealed clear lung allen. No pleural effusion. No pneumothorax. INDWELLINGS: Endotracheal tube, NG tube, Darden, PICC line placed on 01/19/2017. Right femoral Jesus Manuel OBJECTIVE DATA: PHYSICAL EXAMINATION: GENERAL: This is a fragile, chronically ill-appearing, elderly man, who is lethargic, arousable, and in no distress. HEENT: Head atraumatic, normocephalic. Sclerae anicteric. Buccal mucosa dry. NECK: Supple. CHEST: Rise symmetrical. Breath sounds diminished at the bases. HEART: S1, S2. ABDOMEN: Soft, bowel sounds present. EXTREMITIES: Without cyanosis. Peripheral pulses palpable. ASSESSMENT: 1. 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 The patient had lumbar puncture done and so far cultures have been negative. 2. Acute on chronic kidney disease. 3. Abbi's granulomatosis, had been on Rituxan. 4. Chief respiratory failure secondary to acute encephalopathy, patient was intubated for airway protection. 5. Hypertension. 6. History of early cancer. PLAN: The patient is doing much better. He is more awake and follows commands. He is currently on Decadron that accounts for his leukocytosis. No fevers. He is off antibiotics and he is being followed by multiple consultants. We will continue observing him. Repeat cultures as needed. Continue hemodialysis as per nephrology recommendations. Dictated By: Giancarlo Hodges NP /[email or web address] /Document#: [id number] LORNE
[2017-02-01 15:27] LABS: MICROALBUMIN 94.9 mg/dL
[2017-02-01] MEDS ORDERED: SOD CHLORIDE 0.9% 250 ML IV* ONE (16:44)
[2017-02-01] MEDS ORDERED: SENNA TAB PO PRN (17:00)
[2017-02-01] MEDS: FENTAnyl (DRIP) 1000 mcg/100mL 100 ML IV SCH ×2 (17:15→21:34)
[2017-02-01] MEDS: EPOETIN ALFA (NESRD) 3,000 UNITS/ML VIAL SC SCH (17:36)
--- NOTE | 2017-02-01 20:07 | PN ---
DATE: 01/28/2017 SUBJECTIVE DATA: Patient appears to be more alert after we started him on the steroid, appears to be moving his eyes to the side somewhat, following commands. Remains very agitated when he is placed on SIMV mode. H and H went down to 7/. BUN is 82, creatinine 2.62. LFTs remain elevated. OBJECTIVE DATA: VITAL SIGNS: Temperature 98.2, pulse 75, respirations 15, blood pressure 160/79, saturation 99 percent on 30 percent FiO2. GENERAL: Patient is afebrile. In general, patient is in no acute distress. Patient is agitated and remains on a ventilator. HEART: S1 and S2. Regular rate. LUNGS: Decreased bilaterally. ABDOMEN: Soft, nontender. EXTREMITIES: Trace to +1 edema throughout. LABORATORY AND DIAGNOSTIC DATA: White count is 15.1, hemoglobin 7, hematocrit 21, platelet count 95, neutrophils 82 percent, lymphocytes 8 percent. Chemistry: Sodium is 142, potassium 3.9, chloride 108, bicarb 32, BUN is 82, creatinine 2.62, and glucose 167. Last glucose was 218. Serology of the spinal fluid is still nondiagnostic. MEDICATIONS: Include the followin. Epogen Wednesday, Wednesday, Wednesday. This was started today. 2. Accu-Chek q.a.c. and q.h.s. 3. Lantus 10 units q.12. 4. Insulin aspart 4 units subcu q.4. 5. Decadron 4 mg IV q.6. 6. Normal saline or Hep-Lock. 7. Hydralazine 50 t.i.d. 8. Lopressor 100 b.i.d. 9. Heparin 5000 units b.i.d. 10. Midazolam as directed. 11. Prevacid 30 cc daily. 12. Fentanyl as directed. 13. Fitzwilliam p.r.n. 14. Ativan p.r.n. 15. Benadryl p.r.n. 16. Colace prn 17. Hydralazine prn 18. prn 19. Hypoglycemia protocol as directed. 20. Morphine prn 21. Zofran prn 22. Colace prn ASSESSMENT AND PLAN: This is a 66-year-old, male, with history of Abbi granulomatosis, on Rituxan immunocompromise, chronic kidney disease, nicotine dependency, hypertension, who initially presented with fever, chills, generalized weakness and decreased P.O. intake. Unfortunately, was noted to be with progressive worsening encephalopathy, stridor and was intubated, with prolonged hospitalization secondary to ongoing encephalopathy, but he has improved in the past 1-2 days after initiation of IV Decadron. 1. Respiratory. Further weaning per Dr. Holder. May consider just extubation. Essentially normal, alert, able to follow some commands. Remains very anxious when he is on SIMV mode. 2. Cardiovascular. Continue blood pressure medication. Continue sequential compression devices for deep venous thrombosis prophylaxis. 3. Acute renal failure. Dialysis per Dr. Sierra. 4. Encephalopathy, likely from viral meningitis. Continue to monitor. Continue supportive care. Continue Decadron, as patient has brain edema. 5. Hyperglycemia. Continue Lantus 10 units twice a day with NovoLog insulin in between. 6. Continue Protonix for gastrointestinal prophylaxis. 7. Abbi granulomatosis. Rheumatology is following. 8. Dysphagia, on OG tube feeding. 9. Elevated liver enzymes. Observe. 10. Prognosis remains guarded. Continue to follow. 11. Worsening anemia. May consider transfusion. "No evidence of bleeding." 12. Constipation. Stool softeners will be added. We will follow. Dictated By: Gurwinder Triplett MD /[email or web address] /Document#: [id number]
--- NOTE | 2017-02-01 20:24 | CONS ---
Date/Time of Note Date/Time of Note DATE: 02/01/17 TIME: 20:19 Consult Date/Type/Reason Admit Date/Time Jan 17, 2017 at 17:33 Type of Consultation: Rheum Subjective "Woke up" today, looked bilaterally was following commands earlier, now more sleepy again.Occasional bradycardia 35-40 very briefly vasovagal? post BM, with suctioning Objective Vital Signs Date Time Temp Pulse Resp B/P Pulse Ox O2 Delivery O2 Flow Rate FiO2 02/01/17 18:28 30 02/01/17 18:00 14 125/78 97 Mechanical Ventilator 02/01/17 17:00 30 02/01/17 16:00 98.5 Intake and Output 01/31/17 01/31/17 02/01/17 15:00 23:00 07:00 Intake Total 1075.0 ml 865.5 ml 792 ml Output Total 1708 ml 390 ml 356 ml Balance -633.0 ml 475.5 ml 436 ml Exam NEUROLOGIC: Patient is lethargic. Intubated Does not follow commands. opens eyes to stimulation Blinks to visual threat bilaterally. Pupils about 2 mm sluggish. Extraocular movements looks at times to sides. Corneal reflexes present bilaterally, as well as gag. Motor strength examination moved LUE. Slightly increased tone in upper extremities, cogwheeling. Newly noticed left foot drop. Deep tendon reflexes, 2+ upper extremities and knees, right ankle jerk, absent left one. No response to plantar stimulation bilaterally. Severe nuchal rigidity still present Results/Medications Result Diagram: 02/01/17 0400 02/01/17 0400 Results 24 hrs Laboratory Tests Test 01/31/17 21:20 02/01/17 01:19 02/01/17 04:00 02/01/17 05:00 Bedside Glucose 207 194 White Blood Count 15.1 #H Red Blood Count 2.54 #L Hemoglobin 7.0 #L Hematocrit 20.9 L Mean Corpuscular Volume 82.3 Mean Corpuscular Hemoglobin 27.6 L Mean Corpuscular Hemoglobin Concent 33.5 Red Cell Distribution Width 19.5 H Platelet Count 95 L Mean Platelet Volume Neutrophils % 81.5 H Lymphocytes % 7.7 L Monocytes % 7.2 Eosinophils % 0.1 Basophils % 0.3 Nucleated Red Blood Cells % 9.0 H Neutrophils # 12.3 H Lymphocytes # 1.2 Monocytes # 1.1 H Eosinophils # 0.0 Basophils # 0.1 Nucleated Red Blood Cells # 1.4 H Sodium Level 142 Potassium Level 3.9 Chloride Level 108 Carbon Dioxide Level 32 H Anion Gap 6 L Blood Urea Nitrogen 82 H Creatinine 2.62 H Glucose Level 167 Lactic Acid Level 1.2 Calcium Level 8.6 Total Bilirubin 0.1 L Direct Bilirubin 0.00 Indirect Bilirubin 0.1 Aspartate Amino Transf (AST/SGOT) 82 H Alanine Aminotransferase (ALT/SGPT) 129 H Alkaline Phosphatase 172 H Total Protein 5.7 #L Albumin 2.5 L Globulin 3.20 Albumin/Globulin Ratio 0.78 Blood Gas Specimen Source Blood arterial Arterial Blood Date Drawn 02/01/2017 5:05:30 AM Arterial Blood pH (Temp corrected) 7.490 H Arterial Blood pCO2 (Temp correct) 36.3 Arterial Blood pO2 (Temp corrected) 84.6 Arterial Blood HCO3 27.0 H Arterial Blood Base Excess 3.5 H Arterial Blood Oxygen Saturation 95.9 George Test ACCEPTAB Arterial Blood Gas Puncture Site Right Radial Arterial Blood Carboxyhemoglobin 0.3 Arterial Blood Methemoglobin 0.3 Blood Gas A-a O2 Differential 86.7 H Oxyhemoglobin Percent 95.3 Total Hemoglobin 8.0 L Blood Gas Temperature 37.0 Blood Gas Respiration Rate 14.0 Blood Gas Actual Respiration Rate 18 Blood Gas Modality VENT - AC FiO2 30.0 Blood Gas Tidal Volume 500.0 Blood Gas Low PEEP Setting 5.0 Blood Gas Inspiratory Pressure 23.0 Blood Gas Notified Whom RTR Blood Gas Notified Time 02/01/2017 5:27:32 AM Test 02/01/17 05:42 02/01/17 08:39 02/01/17 12:48 02/01/17 17:32 Bedside Glucose 147 197 218 226 H Medications Current Medications Ondansetron HCl (Zofran Inj) 4 mg Q6H PRN IV NAUSEA AND/OR VOMITING; Start 01/17 at 14:30 Morphine Sulfate (morphine) 2 mg Q4H PRN IV SEVERE PAIN LEVEL 7-10 Last administered on 01/31/17t 07:22; Admin Dose 2 MG; Start 01/17/17 at 14:30 Docusate Sodium (Colace) 100 mg Q12H PRN PO CONSTIPATION; Start 01/17/17 at 14: 30 Febuxostat (Uloric) 40 mg DAILY PO Last administered on 02/01/17 08:22; Admin Dose 40 MG; Start 01/18/17 at 09:00 Diphenhydramine HCl (Benadryl) 25 mg Q4H PRN IV CHILLS; Start 01/17/17 at 18:30 Diltiazem HCl (Cardizem Cd) 240 mg DAILY PO Last administered on 02/01/17 08: 23; Admin Dose 240 MG; Start 01/17/17 at 18:30 Nicotine 1 patch 1 patch DAILY TRANSDERM Last administered on 02/01/17 08:22; Admin Dose 1 PATCH; Start 01/18/17 at 10:30 Acetaminophen (Ofirmev 1000mg/ 100ml Iv) 100 ml @ 400 mls/hr Q4 PRN IVPB FEVER GREATER THAN 100.6 Last administered on 01/23/17 14:09; Admin Dose 400 MLS /HR; Start 01/19/17 at 00:30 Hydralazine HCl (Apresoline) 10 mg Q4H PRN IV hypertension Last administered on 01/27/17 22:20; Admin Dose 10 MG; Start 01/19/17 at 01:00 Labetalol HCl (Labetalol) 20 mg Q3 PRN IV ELEVATED BLOOD PRESSURE Last administered on 02/01/17 19:07; Admin Dose 20 MG; Start 01/19/17 at 02:30 Labetalol HCl (Labetalol) 10 mg Q3 PRN IV ELEVATED BLOOD PRESSURE Last administered on 02/01/17 10:27; Admin Dose 10 MG; Start 01/19/17 at 02:30 Miscellaneous Information 1 ea NOTE XX ; Start 01/19/17 at 09:00 Glucose (Glutose) 15 gm Q15M PRN PO DECREASED GLUCOSE; Start 01/19/17 at 09:00 Glucose (Glutose) 22.5 gm Q15M PRN PO DECREASED GLUCOSE; Start 01/19/17 at 09:00 Dextrose (D50w Syringe) 25 ml Q15M PRN IV DECREASED GLUCOSE; Start 01/19/17 at 09:00 Dextrose (D50w Syringe) 50 ml Q15M PRN IV DECREASED GLUCOSE; Start 01/19/17 at 09:00 Glucagon (Glucagen) 1 mg Q15M PRN IM DECREASED GLUCOSE; Start 01/19/17 at 09:00 Glucose (Glutose) 15 gm Q15M PRN BUCCAL DECREASED GLUCOSE; Start 01/19/17 at 09: 00 IV Flush (NS 10 ml) 10 ml PRN PRN IV FLUSH LINE; Start 01/19/17 at 12:00 Diphenhydramine HCl (Benadryl Liquid Cup) 25 mg QHS PRN NGT ITCHING; Start 01/19 at 21:00 Hydralazine HCl (Apresoline) 25 mg Q4H PRN NGT hypertension Last administered on 01/25/17 12:17; Admin Dose 25 MG; Start 01/19/17 at 20:30 Acetaminophen/ Hydrocodone Bitart ([place] (5/325)) 1 tab Q6H PRN NGT MODERATE PAIN LEVEL 4-6; Start 01/20/17 at 02:30 Magnesium Hydroxide (Milk Of Mag) 30 ml DAILY PRN NGT CONSTIPATION; Start at 20:30 Acetaminophen (Tylenol Liquid) 1,000 mg Q4H PRN NGT PAIN AND OR ELEVATED TEMP; Start 01/19/17 at 20:30; Status Future Hold Docusate Sodium (Colace Liquid Cup) 100 mg TID NGT Last administered on 12:40; Admin Dose 100 MG; Start 01/19/17 at 21:00 Lorazepam 2 mg 2 mg Q6H PRN IV before LP and MRI Last administered on 01/23/17 11:28; Admin Dose 2 MG; Start 01/20/17 at 00:00 Fentanyl (Sublimaze) 100 ml @ 2.5 mls/hr TITRATE IV Last administered on 17:15; Admin Dose 5 MLS/HR; Start 01/20/17 at 10:00 Lansoprazole 30 mg 30 mg DAILY@06 NGT Last administered on 02/01/17 05:40; Admin Dose 30 MG; Start 01/21/17 at 06:00 Norepinephrine 16 mg/Dextrose 500 ml @ 1.87 mls/hr TITRATE IV ; Start 01/20/17 at 17:30 Midazolam HCl (Versed) 50 ml @ 1 mls/hr TITRATE IV Last administered on 17:16; Admin Dose 2 MLS/HR; Start 01/23/17 at 09:30 Heparin Sodium (Porcine) (Heparin (5000 Units/0.5 ml)) 5,000 unit BID SC Last administered on 02/01/17 08:33; Admin Dose 5,000 UNIT; Start 01/24/17 at 21:00 Hydralazine HCl (Apresoline) 50 mg TID NGT Last administered on 02/01/17 12:40 ; Admin Dose 50 MG; Start 01/26/17 at 21:00 Metoprolol Tartrate 100 mg 100 mg BID NGT Last administered on 02/01/17 08:23 ; Admin Dose 100 MG; Start 01/26/17 at 21:00 Sodium Chloride (NS) 1,000 ml @ 0 mls/hr Q0M IV Last administered on 07:00; Admin Dose 10 MLS/HR; Start 01/27/17 at 12:00 Dexamethasone (Decadron) 4 mg Q6 IV Last administered on 02/01/17 17:33; Admin Dose 4 MG; Start 01/30/17 at 18:00 Insulin Glargine (Lantus) 10 unit Q12 SC Last administered on 02/01/17 08:56; Admin Dose 10 UNIT; Start 01/31/17 at 21:00 Diagnostic Test (Pha) (Accu-Chek) 1 ea 02 XX ; Start 02/01/17 at 02:00 Insulin Aspart (Novolog Insulin Pen) NOVOLOG *MODERATE* ALGORI... Q4 SC Last administered on 02/01/17 17:39; Admin Dose 6 UNIT; Start 01/31/17 at 21:00 Epoetin Efrain (Epogen (Neserd)) 6,000 units MoWeFr@17 SC Last administered on 17:36; Admin Dose 6,000 UNITS; Start 02/01/17 at 17:00 Senna (Senokot) 1 tab BID PRN PO CONSTIPATION; Start 02/01/17 at 17:00 Polyethylene Glycol (Miralax) 17 gm DAILY PO ; Start 02/02/17 at 09:00 Assessment/Plan Chief Complaint/Hosp Course IMPRESSION: A 66-year-old gentleman who presented on 01-17-17 with several days of fevers and generalized weakness, dizziness, a few episodes of nausea, transient shoulder pain. Patient is immunosuppressed and in the hospital,he developed mental status changes, became confused, and complained of diplopia; has also developed noticeable nuchal rigidity, stridor, has to be intubated. Continues to be very encephalopathic, had transient tremor and myoclonus. 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 First LP: HSV PCR was negative, off acyclovir, bacterial and fungal work up negative. West Nile serology was sent out, negative in serum, no results from CSF yet, I called labs .EEG c/w encephalopathy. S/p IVIG, had very low IG titers. Repeat LP , elevated OP 28, elevated protein 260, WBC 56, lymphocytes, gram stain, patricia ink negative; sendouts pending. MRI brain 01-28-17 c/w cerebelitis, no mass effect. Now on steroids x 3 days so far. Intermittently bradycardic today 35-40's, to r/ o hydrocephalus, will do CT. Problems: LALO MONACO MD Feb 01, 2017 20:24
[2017-02-02] VITALS (63 sets, daily range): BP systolic 95–180; BP diastolic 67–106; PULSE 0–110; RESP 16–36
[2017-02-02] MEDS: INSULIN ASPART [NOVOLOG] 3 ML PEN SC SCH ×6 (01:00→21:00)
[2017-02-02] MEDS: DEXAMETHASONE 4 MG/ML 1 ML INJ IV SCH ×5 (01:31→21:31)
[2017-02-02] MEDS ORDERED: ATROPINE 1 MG/10 ML SYRINGE IV PRN (02:00)
[2017-02-02] MEDS: ACCU-CHEK XX SCH (02:00)
[2017-02-02] MEDS: LANSOPRAZOLE 30 MG CAP NGT SCH (05:21)
[2017-02-02 05:50] LABS: ABNORMAL IP MESSAGE 1; BASOPHIL # 0.1 10^3/ul (0.0-0.1); BASOPHILS % 0.3 % (0.0-2.0); HEMATOCRIT 29.7 % (42.0-52.0); HEMOGLOBIN 9.8 g/dl (14.0-18.0); LYMPHOCYTES # 0.9 10^3/ul (0.8-2.9); LYMPHOCYTES % 4.9 % (15.0-51.0); MEAN CORPUSCULAR HEMOGLOBIN 27.8 pg (29.0-33.0); MEAN CORPUSCULAR VOLUME 84.4 fl (82.0-101.0); MONOCYTE # 1.5 10^3/ul (0.3-0.9); MONOCYTES % 8.6 % (0.0-11.0); NEUTROPHILS % 83.1 % (39.0-77.0); NUCLEATED RED BLOOD CELLS # 1.3 10^3/ul (0.0-0.0); NUCLEATED RED BLOOD CELLS% 7.3 /100WBC (0.0-0.0); POSITIVE DIFF @See below; RED BLOOD COUNT 3.52 10^6/ul (4.70-6.10); RED CELL DISTRIBUTION WIDTH 20.7 % (11.5-14.5)
[2017-02-02 06:22] LABS: PLATELET COUNT 147 10^3/UL (140-415)
[2017-02-02 06:48] LABS: CALCIUM 9.1 mg/dl (8.4-10.2); CREATININE 2.73 mg/dl (0.61-1.24); MAGNESIUM 2.7 mg/dl (1.7-2.5); PHOSPHORUS 6.4 mg/dl (2.5-4.9); POTASSIUM 4.1 mmol/L (3.5-5.1)
[2017-02-02] MEDS: DILTIAZEM (CD) 240 MG CAP PO SCH (09:00)
--- NOTE | 2017-02-02 09:09 | PN ---
DATE: 02/02/2017 SUBJECTIVE DATA: The patient remains critically ill. The patient's serology apparently is positive for West Nile. The patient is scheduled for hemodialysis today. No other events noted. OBJECTIVE DATA: VITAL SIGNS: Blood pressure is 169/96, respirations 23, pulse 87, temperature 98.6. HEENT: Head is normocephalic. Pupils are reactive. NECK: Supple. HEART: Regular rate. LUNGS: Showed diminished breath sounds at the base. ABDOMEN: Soft, nontender to palpation. No rebound or guarding. EXTREMITIES: Negative for clubbing, cyanosis. No edema. DERMATOLOGIC: Clean. No rashes. MUSCULOSKELETAL: No joint effusion. NEUROLOGIC: No change in exam. MEDICATIONS: Reviewed. LABORATORY AND DIAGNOSTIC DATA: Shows a white count of 18.0, hemoglobin 9.8, crit 29.7, platelet count is 147. Sodium 148, potassium 4.1, chloride 110, BUN 99, creatinine 2.73, magnesium 2.7, phosphorus 6.4. The patient's imaging studies and x-ray were reviewed. ASSESSMENT AND PLAN: 1. Nonoliguric acute kidney injury on top of chronic kidney disease with previous baseline creatinine 1.7 to 2.0 mg/dL. Etiology of acute kidney injury secondary to acute tubular necrosis. The patient is currently dialysis dependent. We will continue dialysis with clearance, volume removal. We will continue to monitor for signs of renal recovery. 2. Anemia. Continue to monitor H and H levels. We will give Epogen as needed. 3. Mineral bone disorder. Monitor calcium and phosphorus levels. 4. Hypermagnesemia secondary to acute kidney injury. Continue hemodialysis. 5. Severe sepsis, secondary to West Nile encephalitis. Continue current antimicrobial therapy. The patient is status post intravenous immunoglobulin. Continue to monitor. 6. Abbi's granulomatosis, status post Rituxan. Continue to monitor. Follow up with Rheumatology. 7. Ventilatory-dependent respiratory failure. Vent settings have been reviewed. ABGs reviewed. Encephalopathy. Etiology may be secondary to West Nile. The patient is status post intravenous 8. immunoglobulin. Continue to monitor. Follow up with Neurology. The patient is currently on Decadron for underlying brain edema. Continue to monitor. 9. Gastrointestinal and deep venous thrombosis prophylaxis. Dictated By: Jim Sierra DO /[email or web address]/[email or web address] /Document#: [id number]
--- NOTE | 2017-02-02 10:02 | CONS ---
Date/Time of Note Date/Time of Note DATE: 02/02/17 TIME: 10:00 Consult Date/Type/Reason Admit Date/Time Jan 17, 2017 at 17:33 Type of Consultation: Pulmonary Subjective Patient remains agitated on mechanical ventilation. Continues to remain stable from a hemodynamic standpoint no vasopressor support. Recent serology positive for West Nile virus. Objective Vital Signs Date Time Temp Pulse Resp B/P Pulse Ox O2 Delivery O2 Flow Rate FiO2 02/02/17 09:00 100 31 95/72 95 Mechanical Ventilator 02/02/17 08:00 97.6 02/02/17 08:00 60 Intake and Output 02/01/17 02/01/17 02/02/17 15:00 23:00 07:00 Intake Total 507 ml 528 ml 342 ml Output Total 632 ml 930 ml 535 ml Balance -125 ml -402 ml -193 ml Exam PHYSICAL EXAMINATION GENERAL: Elderly gentleman, intubated on mechanical ventilation, opens eyes and appears somewhat agitated. Orally intubated. VITAL SIGNS: see below. HEENT: Pupils equal, round, and reactive to light. CARDIAC: S1, S2, 1/6 systolic ejection murmur CHEST: Diminished air entry bilaterally. ABDOMEN: Mildly distended. Bowel sounds present no guarding or rebound EXTREMITIES: No cyanosis, clubbing edema +1 NEUROLOGIC: Generalized weakness Results/Medications Result Diagram: 02/02/17 0500 02/02/17 0500 Results 24 hrs Laboratory Tests Test 02/01/17 12:48 02/01/17 17:32 02/01/17 20:37 02/02/17 00:45 Bedside Glucose 218 226 H 194 111 Test 02/02/17 05:00 02/02/17 05:17 02/02/17 07:02 02/02/17 08:26 White Blood Count 18.0 H Red Blood Count 3.52 #L Hemoglobin 9.8 #L Hematocrit 29.7 #L Mean Corpuscular Volume 84.4 Mean Corpuscular Hemoglobin 27.8 L Mean Corpuscular Hemoglobin Concent 33.0 Red Cell Distribution Width 20.7 H Platelet Count 147 # Mean Platelet Volume Neutrophils % 83.1 H Lymphocytes % 4.9 L Monocytes % 8.6 Eosinophils % 0.0 Basophils % 0.3 Nucleated Red Blood Cells % 7.3 H Neutrophils # 15.0 H Lymphocytes # 0.9 Monocytes # 1.5 H Eosinophils # 0.0 Basophils # 0.1 Nucleated Red Blood Cells # 1.3 H Sodium Level 148 H Potassium Level 4.1 Chloride Level 110 Carbon Dioxide Level 28 Anion Gap 14 # Blood Urea Nitrogen 99 H Creatinine 2.73 H Glucose Level 110 # Calcium Level 9.1 Phosphorus Level 6.4 H Magnesium Level 2.7 H Bedside Glucose 105 Lab Scanned Report REFERENCE LAB REFERENCE LAB Test 02/02/17 08:27 02/02/17 09:06 Lab Scanned Report REFERENCE LAB Bedside Glucose 189 Medications Current Medications Ondansetron HCl (Zofran Inj) 4 mg Q6H PRN IV NAUSEA AND/OR VOMITING; Start 01/17 at 14:30 Morphine Sulfate (morphine) 2 mg Q4H PRN IV SEVERE PAIN LEVEL 7-10 Last administered on 01/31/17 07:22; Admin Dose 2 MG; Start 01/17/17 at 14:30 Docusate Sodium (Colace) 100 mg Q12H PRN PO CONSTIPATION; Start 01/17/17 at 14: 30 Febuxostat (Uloric) 40 mg DAILY PO Last administered on 02/01/17 08:22; Admin Dose 40 MG; Start 01/18/17 at 09:00 Diphenhydramine HCl (Benadryl) 25 mg Q4H PRN IV CHILLS; Start 01/17/17 at 18:30 Diltiazem HCl (Cardizem Cd) 240 mg DAILY PO Last administered on 02/01/17 08: 23; Admin Dose 240 MG; Start 01/17/17 at 18:30 Nicotine 1 patch 1 patch DAILY TRANSDERM Last administered on 02/01/17 08:22; Admin Dose 1 PATCH; Start 01/18/17 at 10:30 Acetaminophen (Ofirmev 1000mg/ 100ml Iv) 100 ml @ 400 mls/hr Q4 PRN IVPB FEVER GREATER THAN 100.6 Last administered on 01/23/17 14:09; Admin Dose 400 MLS /HR; Start 01/19/17 at 00:30 Hydralazine HCl (Apresoline) 10 mg Q4H PRN IV hypertension Last administered on 01/27/17 22:20; Admin Dose 10 MG; Start 01/19/17 at 01:00 Labetalol HCl (Labetalol) 20 mg Q3 PRN IV ELEVATED BLOOD PRESSURE Last administered on 02/01/17 22:19; Admin Dose 20 MG; Start 01/19/17 at 02:30 Miscellaneous Information 1 ea NOTE XX ; Start 01/19/17 at 09:00 Glucose (Glutose) 15 gm Q15M PRN PO DECREASED GLUCOSE; Start 01/19/17 at 09:00 Glucose (Glutose) 22.5 gm Q15M PRN PO DECREASED GLUCOSE; Start 01/19/17 at 09:00 Dextrose (D50w Syringe) 25 ml Q15M PRN IV DECREASED GLUCOSE; Start 01/19/17 at 09:00 Dextrose (D50w Syringe) 50 ml Q15M PRN IV DECREASED GLUCOSE; Start 01/19/17 at 09:00 Glucagon (Glucagen) 1 mg Q15M PRN IM DECREASED GLUCOSE; Start 01/19/17 at 09:00 Glucose (Glutose) 15 gm Q15M PRN BUCCAL DECREASED GLUCOSE; Start 01/19/17 at 09: 00 IV Flush (NS 10 ml) 10 ml PRN PRN IV FLUSH LINE; Start 01/19/17 at 12:00 Diphenhydramine HCl (Benadryl Liquid Cup) 25 mg QHS PRN NGT ITCHING; Start 01/19 at 21:00 Hydralazine HCl (Apresoline) 25 mg Q4H PRN NGT hypertension Last administered on 01/25/17 12:17; Admin Dose 25 MG; Start 01/19/17 at 20:30 Acetaminophen/ Hydrocodone Bitart ([place] (5/325)) 1 tab Q6H PRN NGT MODERATE PAIN LEVEL 4-6; Start 01/20/17 at 02:30 Magnesium Hydroxide (Milk Of Mag) 30 ml DAILY PRN NGT CONSTIPATION; Start at 20:30 Acetaminophen (Tylenol Liquid) 1,000 mg Q4H PRN NGT PAIN AND OR ELEVATED TEMP; Start 01/19/17 at 20:30; Status Future Hold Docusate Sodium (Colace Liquid Cup) 100 mg TID NGT Last administered on 21:32; Admin Dose 100 MG; Start 01/19/17 at 21:00 Lorazepam 2 mg 2 mg Q6H PRN IV before LP and MRI Last administered on 01/23/17 11:28; Admin Dose 2 MG; Start 01/20/17 at 00:00 Fentanyl (Sublimaze) 100 ml @ 2.5 mls/hr TITRATE IV Last administered on 21:34; Admin Dose 0.5 MLS/HR; Start 01/20/17 at 10:00 Lansoprazole 30 mg 30 mg DAILY@06 NGT Last administered on 02/02/17 05:21; Admin Dose 30 MG; Start 01/21/17 at 06:00 Norepinephrine 16 mg/Dextrose 500 ml @ 1.87 mls/hr TITRATE IV ; Start 01/20/17 at 17:30 Midazolam HCl (Versed) 50 ml @ 1 mls/hr TITRATE IV Last administered on 22:47; Admin Dose 1 MLS/HR; Start 01/23/17 at 09:30 Heparin Sodium (Porcine) (Heparin (5000 Units/0.5 ml)) 5,000 unit BID SC Last administered on 02/01/17 21:37; Admin Dose 5,000 UNIT; Start 01/24/17 at 21:00 Hydralazine HCl 50 mg 50 mg TID NGT Last administered on 02/01/17 21:32; Admin Dose 50 MG; Start 01/26/17 at 21:00 Sodium Chloride (NS) 1,000 ml @ 0 mls/hr Q0M IV Last administered on 07:00; Admin Dose 10 MLS/HR; Start 01/27/17 at 12:00 Dexamethasone (Decadron) 4 mg Q6 IV Last administered on 02/02/17 05:21; Admin Dose 4 MG; Start 01/30/17 at 18:00 Diagnostic Test (Pha) (Accu-Chek) 1 ea 02 XX ; Start 02/01/17 at 02:00 Insulin Aspart (Novolog Insulin Pen) NOVOLOG *MODERATE* ALGORI... Q4 SC Last administered on 02/01/17 21:35; Admin Dose 4 UNIT; Start 01/31/17 at 21:00 Epoetin Efrain (Epogen (Neserd)) 6,000 units MoWeFr@17 SC Last administered on 17:36; Admin Dose 6,000 UNITS; Start 9/18/17 at 17:00 Senna (Senokot) 1 tab BID PRN PO CONSTIPATION; Start 02/01/17 at 17:00 Polyethylene Glycol (Miralax) 17 gm DAILY PO ; Start 02/02/17 at 09:00 Atropine Sulfate (Atropine (Syringe)) 1 mg PRN PRN IV DECREASED HEART RATE; Start 02/02/17 at 02:00 Insulin Glargine (Lantus) 6 unit Q12 SC ; Start 02/02/17 at 21:00 Assessment/Plan Chief Complaint/Hosp Course IMPRESSION: 1. Hypoxemic respiratory failure likely secondary to a change in neurological status with alveolar hypoventilation and inability to protect airway. 2. Acute encephalopathy o secondary to West Nile virus. 3. Renal insufficiency 4. Hx Lung Ca 5. Abbi granulomatosis. PLAN: 1. Continue mechanical ventilation. We will attempt CPAP trial. Patient is high risk for reintubation as currently may not be able to protect her airway. 2. Supportive care for West Nile virus 3. ID recs 4. DVT and GI prophylaxis. Discussed with primary care team. cc 40 mins. Problems: CAROL DÍAZ MD, [facility] Feb 02, 2017 10:02
[2017-02-02] MEDS: NICOTINE (14 MG/24 HR) PATCH TRANSDERM SCH (10:09)
[2017-02-02] MEDS: POLYETHYLENE GLYCOL 17 GM PACKET PO SCH (10:09)
[2017-02-02] MEDS: FEBUXOSTAT 40 MG TABLET PO SCH (10:09)
[2017-02-02] MEDS: DOCUSATE SODIUM 10 MG/ML (10ML CUP) NGT SCH ×4 (10:09→21:20)
[2017-02-02] MEDS: HEPARIN 5,000 UNIT/0.5 ML VIAL SC SCH ×2 (10:11→21:19)
[2017-02-02] MEDS: INSULIN GLARGINE [LANtus] 3 ML PEN SC SCH (11:12)
--- NOTE | 2017-02-02 11:19 | PN ---
DATE: 02/02/2017 SUBJECTIVE DATA: Patient is seen, currently being dialyzed on low-dose Versed. Patient opens his eyes, moving his extremities but very anxious and sweating profusely. Case discussed with nursing staff. The patient's CSF serology shows West Nile virus detected. Other tests such as the SO virus is negative. The patient had episodes of bradycardia and temporary pacer was placed on the chest. I stopped patients beta blockers, HR is now stable. OBJECTIVE DATA: VITAL SIGNS: Currently temperature 96.9, pulse 87, respirations 23, blood pressure 169/96, saturation 96 percent on 30 percent FiO2. This is before he is going into dialysis as patient is on dialysis now, he is more tachycardic and blood pressure is on the lower side, 90s over 60s. GENERAL: Patient is sweating, anxious. Patient is pale, moving his eyes. HEART: S1 and S2. Tachycardic. LUNGS: Mild rhonchi bilaterally. ABDOMEN: Soft, nontender. EXTREMITIES: +1 edema upper extremity greater than lower extremities. EXTREMITIES: White count is 18, hemoglobin 9.8, hematocrit 30, platelet count is 147; neutrophils 83 percent, eos 5 percent. Chemistry: Sodium is 148, potassium 4.1, chloride 110, bicarb 28, BUN is 99, creatinine 2.73 and glucose of 110. MEDICATION: 1. MiraLax 17 grams daily. 2. Atropine p.r.n. 3. Epogen 6000 units every Wednesday, Wednesday, Wednesday. 4. Senna 1 tab b.i.d. p.r.n. 5. Accu-Chek q.a.c. and at bedtime. 6. Lantus 10 units q.12. 7. Insulin aspart q.4 p.r.n. 8. Decadron 4 mg IV q.6. 9. Hydralazine 50 mg t.i.d. 10. Heparin 5000 units b.i.d. 11. Midazolam as directed. 12. Prevacid 30 mg daily. 13. Fentanyl p.r.n. IV. 14. [place] p.r.n. 15. Ativan p.r.n. 16. Benadryl p.r.n. 17. Colace 100 t.i.d. 18. Hydralazine 25 q.4 p.r.n. 19. Milk of magnesia p.r.n. 20. Hypoglycemia protocol as directed. 21. Tylenol p.r.n. 22. Nicotine patch 40 mg daily. 23. Cardizem CD 240 daily. 24. Zofran p.r.n. 25. Morphine p.r.n. 26. Colace p.r.n. 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 intake. 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 1. Respiratory: Continue trying to wean him off the vent as patient is neurologically improved, may consider extubation. Pulmonary to follow. Fluid removal with dialysis. 2. Cardiovascular: Hemodynamically unstable at times, tachycardic or bradycardic and hypertensive. Continue current meds, observe, Cardiology to follow. Continue heparin for deep venous thrombosis prophylaxis. 3. Acute renal failure, was started on dialysis. Currently receiving dialysis for fluid removal and worsening kidney function. Monitor electrolytes. 4. 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 Continue supportive care. Patient improved with Decadron, continue titrating Decadron down slowly. 5. Hyperglycemia. Remains on Lantus twice a day. Glucose levels 105, 111, 194. 6. Dysphagia, on orogastric tube feeding. 7. Elevated liver enzymes. Observe. 8. Prognosis remains guarded. This patient will continue with supportive care. 9. Anemia status post transfusion. H and H is stable. No evidence of bleeding. 10. Continue stool softeners. 11. Try to make patient comfortable. We will follow. Case discussed with staff. Dictated By: Gurwinder Triplett MD /eladio/grace /Document#: [id number] LORNE
[2017-02-02] MEDS ORDERED: INSULIN GLARGINE [LANtus] 3 ML PEN SC SCH ×2 (12:00→21:00)
[2017-02-02 13:30] LABS: AADO2 Arterial 116.3 mmHg (7.0-24.0); Allen Test ACCEPTAB; Arterial Base Excess 3.4 mmol/L (-3.0-3); Arterial COHb 0.3 % (0.0-3.0); Arterial Fraction of Oxyhgb 91.8 % (93.0-99.0); Arterial HCO3 25.9 mmol/L (22.0-26.0); Arterial MetHb 0.2 % (0.0-1.5); Arterial Total Hemglobin 11.2 g/dl (12.0-18.0); Blood Gas PS 10; MODE VENT - CPAP
--- NOTE | 2017-02-02 13:44 | CONS ---
Date/Time of Note Date/Time of Note DATE: 02/02/17 TIME: 13:40 Consult Date/Type/Reason Admit Date/Time Jan 17, 2017 at 17:33 Type of Consultation: Rheum Subjective Patient's mental status continues to improve slowly. West Nile virus has been detected in CSF. Objective Vital Signs Date Time Temp Pulse Resp B/P Pulse Ox O2 Delivery O2 Flow Rate FiO2 02/02/17 12:00 93 02/02/17 12:00 97.0 17 145/99 95 Mechanical Ventilator 02/02/17 11:00 30 Intake and Output 02/01/17 02/01/17 02/02/17 15:00 23:00 07:00 Intake Total 507 ml 528 ml 397 ml Output Total 632 ml 930 ml 769 ml Balance -125 ml -402 ml -372 ml Exam GENERAL: Intubated, Alert. Follows commands SKIN: Multiple echymoses throughout- HEENT: ET Tube in place NECK: No lymphadenopathy. HEART: S1, S2. Regular rate and rhythm. LUNGS: Clear bilaterally to auscultation. ABDOMEN: Distended. EXTREMITIES: No cyanosis, no edema. MUSCULOSKELETAL: No synovitis Results/Medications Result Diagram: 02/02/17 0500 02/02/17 0500 Results 24 hrs Laboratory Tests Test 02/01/17 17:32 02/01/17 20:37 02/02/17 00:45 02/02/17 05:00 Bedside Glucose 226 H 194 111 White Blood Count 18.0 H Red Blood Count 3.52 #L Hemoglobin 9.8 #L Hematocrit 29.7 #L Mean Corpuscular Volume 84.4 Mean Corpuscular Hemoglobin 27.8 L Mean Corpuscular Hemoglobin Concent 33.0 Red Cell Distribution Width 20.7 H Platelet Count 147 # Mean Platelet Volume Neutrophils % 83.1 H Lymphocytes % 4.9 L Monocytes % 8.6 Eosinophils % 0.0 Basophils % 0.3 Nucleated Red Blood Cells % 7.3 H Neutrophils # 15.0 H Lymphocytes # 0.9 Monocytes # 1.5 H Eosinophils # 0.0 Basophils # 0.1 Nucleated Red Blood Cells # 1.3 H Sodium Level 148 H Potassium Level 4.1 Chloride Level 110 Carbon Dioxide Level 28 Anion Gap 14 # Blood Urea Nitrogen 99 H Creatinine 2.73 H Glucose Level 110 # Calcium Level 9.1 Phosphorus Level 6.4 H Magnesium Level 2.7 H Test 02/02/17 05:17 02/02/17 07:02 02/02/17 08:26 02/02/17 08:27 Bedside Glucose 105 Lab Scanned Report REFERENCE LAB REFERENCE LAB REFERENCE LAB Test 02/02/17 09:06 02/02/17 10:15 02/02/17 12:22 02/02/17 13:00 Bedside Glucose 189 214 143 Blood Gas Specimen Source Blood arterial Arterial Blood Date Drawn 02/02/2017 1:04:32 PM Arterial Blood pH (Temp corrected) 7.524 H Arterial Blood pCO2 (Temp correct) 32.1 L Arterial Blood pO2 (Temp corrected) 59.9 L Arterial Blood HCO3 25.9 Arterial Blood Base Excess 3.4 H Arterial Blood Oxygen Saturation 92.3 L George Test ACCEPTAB Arterial Blood Gas Puncture Site Right Radial Arterial Blood Carboxyhemoglobin 0.3 Arterial Blood Methemoglobin 0.2 Blood Gas A-a O2 Differential 116.3 H Oxyhemoglobin Percent 91.8 L Total Hemoglobin 11.2 L Blood Gas Temperature 37.0 Blood Gas Actual Respiration Rate 26 Blood Gas Modality VENT - CPAP FiO2 30.0 Blood Gas Low PEEP Setting 5.0 Blood Gas Pressure Support 10 Blood Gas Notified Whom TM Blood Gas Notified Time 02/02/2017 1:30:31 PM Medications Current Medications Ondansetron HCl (Zofran Inj) 4 mg Q6H PRN IV NAUSEA AND/OR VOMITING; Start 01/17 at 14:30 Morphine Sulfate (morphine) 2 mg Q4H PRN IV SEVERE PAIN LEVEL 7-10 Last administered on 01/31/17 07:22; Admin Dose 2 MG; Start 01/17/17 at 14:30 Docusate Sodium (Colace) 100 mg Q12H PRN PO CONSTIPATION; Start 01/17/17 at 14: 30 Febuxostat (Uloric) 40 mg DAILY PO Last administered on 02/02/17 10:09; Admin Dose 40 MG; Start 01/18/17 at 09:00 Diphenhydramine HCl (Benadryl) 25 mg Q4H PRN IV CHILLS; Start 01/17/17 at 18:30 Diltiazem HCl (Cardizem Cd) 240 mg DAILY PO Last administered on 02/01/17 08: 23; Admin Dose 240 MG; Start 01/17/17 at 18:30 Nicotine 1 patch 1 patch DAILY TRANSDERM Last administered on 02/02/17 10:09; Admin Dose 1 PATCH; Start 01/18/17 at 10:30 Acetaminophen (Ofirmev 1000mg/ 100ml Iv) 100 ml @ 400 mls/hr Q4 PRN IVPB FEVER GREATER THAN 100.6 Last administered on 01/23/17 14:09; Admin Dose 400 MLS /HR; Start 01/19/17 at 00:30 Hydralazine HCl (Apresoline) 10 mg Q4H PRN IV hypertension Last administered on 01/27/17 22:20; Admin Dose 10 MG; Start 01/19/17 at 01:00 Labetalol HCl (Labetalol) 20 mg Q3 PRN IV ELEVATED BLOOD PRESSURE Last administered on 02/01/17 22:19; Admin Dose 20 MG; Start 01/19/17 at 02:30 Miscellaneous Information 1 ea NOTE XX ; Start 01/19/17 at 09:00 Glucose (Glutose) 15 gm Q15M PRN PO DECREASED GLUCOSE; Start 01/19/17 at 09:00 Glucose (Glutose) 22.5 gm Q15M PRN PO DECREASED GLUCOSE; Start 01/19/17 at 09:00 Dextrose (D50w Syringe) 25 ml Q15M PRN IV DECREASED GLUCOSE; Start 01/19/17 at 09:00 Dextrose (D50w Syringe) 50 ml Q15M PRN IV DECREASED GLUCOSE; Start 01/19/17 at 09:00 Glucagon (Glucagen) 1 mg Q15M PRN IM DECREASED GLUCOSE; Start 01/19/17 at 09:00 Glucose (Glutose) 15 gm Q15M PRN BUCCAL DECREASED GLUCOSE; Start 01/19/17 at 09: 00 IV Flush (NS 10 ml) 10 ml PRN PRN IV FLUSH LINE; Start 01/19/17 at 12:00 Diphenhydramine HCl (Benadryl Liquid Cup) 25 mg QHS PRN NGT ITCHING; Start 01/19 at 21:00 Hydralazine HCl (Apresoline) 25 mg Q4H PRN NGT hypertension Last administered on 01/25/17 12:17; Admin Dose 25 MG; Start 01/19/17 at 20:30 Acetaminophen/ Hydrocodone Bitart ([place] (5/325)) 1 tab Q6H PRN NGT MODERATE PAIN LEVEL 4-6; Start 01/20/17 at 02:30 Magnesium Hydroxide (Milk Of Mag) 30 ml DAILY PRN NGT CONSTIPATION; Start at 20:30 Acetaminophen (Tylenol Liquid) 1,000 mg Q4H PRN NGT PAIN AND OR ELEVATED TEMP; Start 01/19/17 at 20:30; Status Future Hold Docusate Sodium (Colace Liquid Cup) 100 mg TID NGT Last administered on 10:09; Admin Dose 100 MG; Start 01/19/17 at 21:00 Lorazepam 2 mg 2 mg Q6H PRN IV before LP and MRI Last administered on 01/23/17 11:28; Admin Dose 2 MG; Start 01/20/17 at 00:00 Fentanyl (Sublimaze) 100 ml @ 2.5 mls/hr TITRATE IV Last administered on 21:34; Admin Dose 0.5 MLS/HR; Start 01/20/17 at 10:00 Lansoprazole 30 mg 30 mg DAILY@06 NGT Last administered on 02/02/17 05:21; Admin Dose 30 MG; Start 01/21/17 at 06:00 Norepinephrine 16 mg/Dextrose 500 ml @ 1.87 mls/hr TITRATE IV ; Start 01/20/17 at 17:30 Midazolam HCl (Versed) 50 ml @ 1 mls/hr TITRATE IV Last administered on 22:47; Admin Dose 1 MLS/HR; Start 01/23/17 at 09:30 Heparin Sodium (Porcine) (Heparin (5000 Units/0.5 ml)) 5,000 unit BID SC Last administered on 02/02/17 10:11; Admin Dose 5,000 UNIT; Start 01/24/17 at 21:00 Hydralazine HCl 50 mg 50 mg TID NGT Last administered on 02/01/17 21:32; Admin Dose 50 MG; Start 01/26/17 at 21:00 Sodium Chloride (NS) 1,000 ml @ 0 mls/hr Q0M IV Last administered on 07:00; Admin Dose 10 MLS/HR; Start 01/27/17 at 12:00 Dexamethasone (Decadron) 4 mg Q6 IV Last administered on 02/02/17 12:46; Admin Dose 4 MG; Start 01/30/17 at 18:00 Diagnostic Test (Pha) (Accu-Chek) 1 ea 02 XX ; Start 02/01/17 at 02:00 Insulin Aspart (Novolog Insulin Pen) NOVOLOG *MODERATE* ALGORI... Q4 SC Last administered on 02/02/17 10:17; Admin Dose 4 UNIT; Start 01/31/17 at 21:00 Epoetin Efrain (Epogen (Neserd)) 6,000 units MoWeFr@17 SC Last administered on 17:36; Admin Dose 6,000 UNITS; Start 02/01/17 at 17:00 Senna (Senokot) 1 tab BID PRN PO CONSTIPATION; Start 02/01/17 at 17:00 Polyethylene Glycol (Miralax) 17 gm DAILY PO Last administered on 02/02/17 10: 09; Admin Dose 17 GM; Start 02/02/17 at 09:00 Atropine Sulfate (Atropine (Syringe)) 1 mg PRN PRN IV DECREASED HEART RATE; Start 02/02/17 at 02:00 Insulin Glargine (Lantus) 10 unit Q12 SC Last administered on 02/02/17 12:25; Admin Dose 10 UNIT; Start 02/02/17 at 12:00 Assessment/Plan Chief Complaint/Hosp Course IMPRESSION AND PLAN: 66-year-old male with history of hypertension, adenocarcinoma of the lung, gout and Abbi's 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 1. Respiratory failure- most likely central in Etiology. Now MRI shows cerebellar encephalitis- now more alert. Plan on eventual weaning off ventilator 2) Jc's Patient is on Rituxan which is an immunosuppressant and this puts him at risk for opportunistic infections. Also his Abbi's has been very well controlled since his diagnosis, he has never had a flare, he has never been hospitalized, with Cytoxan and now Rituxan, I feel like it is unlikely that it would be a Abbi's flare. 4 History of gout. Uric acid levels are low. There is no joint swelling. No joint pain. 5 Acute on Chronic kidney disease, likely secondary to infection. Now getting HD I Problems: SHIRLEY MORALES MD Feb 02, 2017 13:44
--- NOTE | 2017-02-02 17:56 | RADRPT ---
PROCEDURE: CT Brain without contrast. CLINICAL INDICATION: Altered mental status. TECHNIQUE: A CT of the brain without contrast was performed utilizing axial sections from the skul l base through the vertex. The patient was scanned without intravenous contrast enhancement. Sagitta l and coronal reformatted images were obtained using the data from the axial images. Total exam DLP is 886.73 mGy-cm. CTDIvol is 43.29 mGy. One or more of the following dose reduction techniques were used: Automated exposure control, adjustment of the mA and/or kV according to patient size, use of iterative reconstruction technique. COMPARISON: MRI of the brain dated 01/19/2017. CT scan of the brain dated 01/18/2017. FINDINGS: There is normal randhawa-white matter differentiation. There is enlargement of the ventricles and subarachnoid spaces consistent with atrophy. There is decreased attenuation of the periventricular white matter consistent with microangiopathic ischemic change. There is no intracranial hemorrhage or space-occupying lesion. There are vascular calcifications consistent with atherosclerosis. There is no skull fracture or lytic lesion. There is opacification of the mastoid air cells bilatera lly as seen previously. IMPRESSION: 1. Atrophy. 2. Microangiopathic ischemic change. 3. Atherosclerosis. 4. Opacification of the mastoid air cells bilaterally as seen previously. 5. No intracranial hemorrhage. 6. Otherwise unremarkable noncontrast CT scan of the brain. 7. No change from the prior studies. RPTAT: QQ .Caden Cerna MD, Date Time Electronically viewed and signed by .Caden Cerna MD, on 02/02/2017 17:56 .R/
[2017-02-02 18:30] LABS: AADO2 Arterial 331.9 mmHg (7.0-24.0); Allen Test ACCEPTAB; Arterial Base Excess 2.4 mmol/L (-3.0-3); Arterial COHb 0.3 % (0.0-3.0); Arterial Fraction of Oxyhgb 93.8 % (93.0-99.0); Arterial HCO3 24.5 mmol/L (22.0-26.0); Arterial MetHb 0.3 % (0.0-1.5); Arterial Total Hemglobin 11.7 g/dl (12.0-18.0); MODE MASK - SIMPLE
[2017-02-03] VITALS (24 sets, daily range): BP systolic 104–170; BP diastolic 69–140; PULSE 103–113; RESP 22–35
--- NOTE | 2017-02-03 00:13 | RADRPT ---
Vent Rate: 71 bpm RR Interval: 0 msec AL Interval: 140 msec QRS Duration: 102 msec QT Interval: 438 msec QTC Interval: 475 msec P-R-T [place]: 83 - 59 - 74 degrees Normal sinus rhythm Normal ECG Electronically Signed By: Ivan Leo [id number]
[2017-02-03] MEDS: INSULIN ASPART [NOVOLOG] 3 ML PEN SC SCH ×6 (01:51→20:36)
[2017-02-03] MEDS: ACCU-CHEK XX SCH (02:00)
[2017-02-03 05:40] LABS: ABNORMAL IP MESSAGE 1; BASOPHILS % 0.2 % (0.0-2.0); HEMATOCRIT 31.4 % (42.0-52.0); HEMOGLOBIN 10.3 g/dl (14.0-18.0); LYMPHOCYTES # 0.5 10^3/ul (0.8-2.9); LYMPHOCYTES % 2.6 % (15.0-51.0); MEAN CORPUSCULAR HEMOGLOBIN 28.2 pg (29.0-33.0); MEAN CORPUSCULAR HGB CONC 32.8 g/dl (32.0-37.0); MONOCYTE # 1.7 10^3/ul (0.3-0.9); MONOCYTES % 8.7 % (0.0-11.0); NEUTROPHIL # 16.7 10^3/ul (1.6-7.5); NEUTROPHILS % 87.5 % (39.0-77.0); NUCLEATED RED BLOOD CELLS # 0.8 10^3/ul (0.0-0.0); NUCLEATED RED BLOOD CELLS% 4.4 /100WBC (0.0-0.0); POSITIVE DIFF @See below; RED BLOOD COUNT 3.65 10^6/ul (4.70-6.10); RED CELL DISTRIBUTION WIDTH 20.9 % (11.5-14.5); WHITE BLOOD COUNT 19.1 10^3/ul (4.8-10.8)
[2017-02-03] MEDS: DEXAMETHASONE 4 MG/ML 1 ML INJ IV SCH ×3 (05:50→22:00)
[2017-02-03] MEDS: LANSOPRAZOLE 30 MG CAP NGT SCH (05:50)
[2017-02-03 06:03] LABS: PLATELET COUNT 95 10^3/UL (140-415)
[2017-02-03 06:22] LABS: CALCIUM 9.1 mg/dl (8.4-10.2); CREATININE 2.38 mg/dl (0.61-1.24); MAGNESIUM 2.7 mg/dl (1.7-2.5); PHOSPHORUS 6.1 mg/dl (2.5-4.9); POTASSIUM 3.7 mmol/L (3.5-5.1)
--- NOTE | 2017-02-03 07:37 | CONS ---
DATE OF ADMISSION: 01/17/2017 DATE OF CONSULTATION: 02/02/2017 REFERRING PHYSICIAN: Gurwinder Triplett MD REASON FOR CONSULTATION: Sinus arrest and long pauses. CHIEF COMPLAINT: Encephalopathy, fever. HISTORY OF PRESENT ILLNESS: Thank you for extensive review of the old chart and reviewing with the patient and staff. Patient is a 66-year-old gentleman with history of what appears to be Abbi granulomatosis diagnosed about 10 years ago, when he presented with abdominal pain, weight loss, anemia, fever. Patient's course has been complicated. He has been intubated and on the vent. He also has note of encephalopathy. Workup has shown that the patient has had baseline viral encephalitis. His renal function has deteriorated, and he has been on dialysis. Yesterday he had 2 episodes of long pauses up to 10 seconds, when he had sinus arrest. As discussed with the staff, both cases appear to be related to the time that the patient was being moved or changed. Patient or history of previous syncope, as far as I could say. MEDICATIONS: See medical reconciliation, reviewed. FAMILY HISTORY: Patient's mother from breast cancer at age of 94. Father at age 59 of acute PR. SOCIAL HISTORY: Patient is . 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 Has smoked 1-1/2 packs for about 50 years. ALLERGIES: NO REPORTED ALLERGIES. REVIEW OF SYSTEMS: Unable to obtain, as above mentioned. PHYSICAL EXAMINATION: VITAL SIGNS: Temperature of 99, heart rate of 89, blood pressure of 150/95, respiratory rate 22, saturating 93 percent. HEENT: Normocephalic, atraumatic. Eyes: Pupils are equal. Patient is extubated at the moment. Oropharynx secretions. HEART: . LUNGS: Mild rhonchi. GASTROINTESTINAL: Soft, nontender. EXTREMITIES: With positive . NEUROLOGIC: He opens his eyes and awake. So I guess he is calm at the moment. LABORATORY: ECG done on February 01 shows normal sinus rhythm, normal ECG. Echocardiogram was personally reviewed, shows normal AV systolic function. as above. Laboratory showed WBC of 18, hemoglobin of 9.8, platelets of 147. Sodium 148, potassium 4.1, BUN of 99, creatinine 2.7, glucose of 110. Chest x-ray shows lungs are clear. MRI of the brain on 01/28 shows development of edema of bilateral cerebellar hemispheres, with narrowing of the inferior cerebellar , compatible with cerebellar encephalitis. ASSESSMENT AND PLAN: 1. Sick sinus referable to the long pauses, probably related to vasovagal reaction. 2. Hypoxemia, respiratory failure. Just extubated by in the ICU. 3. Severe encephalitis and what appeared to be post-viral encephalitis, per report. 4. Renal failure, [id number], on dialysis. 5. History of Abbi's granulomatosis. 6. Hyperglycemia and diabetes, on insulin. 7. Encephalopathy. 8. Elevated liver function tests. 9. Severe anemia, status post transfusion. RECOMMENDATIONS: Will continue to monitor him closely in the ICU. I will discontinue the Cardizem for now and monitor his heart rate and blood pressure. Antibiotic management, as per Internal Medicine and ID. Pulmonary care as per Respiratory will be continued. He was also on metoprolol, which was discontinued as well. Will stop the labetalol for now. Hydralazine can be given p.r.n. in regular dose for the blood pressure control for now. Will continue to follow along with you. Dialysis as per Renal. Will continue to follow along with you. Thank you for this referral. Dictated By: Brian Dugan MD /eladio/claribel /Document#: [id number] CC: Gurwinder Triplett MD;*End*
--- NOTE | 2017-02-03 07:41 | PN ---
DATE: 02/02/2017 SUBJECTIVE DATA: No acute changes. Patient is awake, looks comfortable on vent. Follows simple commands. No fevers. VITAL SIGNS: Temperature 97, pulse 97, respirations 17, blood pressure 145/99, saturation 95% on 30 FiO2. WBC 18. H and H 9.8 and 29.7, platelets 147,000, neutrophils 83.1, BUN 99, creatinine 2.73. INDWELLINGS: Endotracheal tube, NG tube, D[place], left upper extremity PICC line placed on admission. LABORATORY DATA: CSF by PCR, West Nile virus CSF by PCR came back positive this morning. PHYSICAL EXAMINATION: GENERAL: Fragile, well-developed elderly man who is lethargic, in no distress. HEENT: Head atraumatic, normocephalic. Sclerae anicteric. Buccal mucosa dry. NECK: Supple. CHEST: Rise symmetrical. Breath sounds diminished at the bases. HEART: S1, S2. ABDOMEN: Soft, bowel sounds present. EXTREMITIES: With bilateral edema. ASSESSMENT: 1. West Nile virus encephalitis. 2. Acute respiratory failure secondary to above. 3. Leukocytosis, patient is on Decadron. 4. History of Abbi's granulomatosis. 5. Acute on chronic kidney disease. PLAN: Patient is doing better. He is off antibiotics, followed by multiple consultants. Continue present care. Weaning trials as per Pulmonary. Dictated By: Giancarlo Hodges NP /eladio/alyssia /Document#: [id number]
--- NOTE | 2017-02-03 07:49 | CONS ---
Date/Time of Note Date/Time of Note DATE: 02/03/17 TIME: 07:38 Consult Date/Type/Reason Admit Date/Time Jan 17, 2017 at 17:33 Initial Consult Date Type of Consultation: CARDIOLOGY Subjective CARDIOLOGY FOLLOW UP NOTE: D/W STAFF and rhythm was reviewed. pt remains in NSR. no more pauses seen overnight. pt remains extubated but unable to answer my questions. OBJECTIVE: GEN: no acute distress HEENT: NCAT. pupils are equal neck: no JVD CV: RRR. no m/g/r pulm: no wheezing anteriorly. GI: soft, NT ND. no rebound or guarding. ext + B/L LE edema neuro: awake. does not answer my questions psych: calm pleasant Derm;' No active bleeding ECHO: 1. Normal left ventricular systolic function. Normal left ventricular cavity size. Moderate concentric left ventricular hypertrophy. Ejection fraction is visually estimated at 65 %. Tissue Doppler/Mitral Doppler indices are consistent with impaired relaxation (Stage I diastolic dysfunction). 2. Normal appearance and function of the mitral valve with trace physiologic regurgitation. 3. No hemodynamically significant aortic stenosis by doppler. Aortic cusps appear mildly calcified. Mild aortic valve regurgitation. 4. Normal appearance of the tricuspid valve. Unable to obtain RVSP due to minimal presence of tricuspid regurgitation. Objective Vital Signs Date Time Temp Pulse Resp B/P Pulse Ox O2 Delivery O2 Flow Rate FiO2 02/03/17 07:00 107 22 150/85 96 02/03/17 06:00 Mask 10.0 02/03/17 04:00 98.0 02/02/17 13:20 30 Intake and Output 02/02/17 02/02/17 02/03/17 15:00 23:00 07:00 Intake Total 415.0 ml Output Total 2606 ml 165 ml 654 ml Balance -2191.0 ml -165 ml -654 ml Results/Medications Result Diagram: 02/03/17 0500 02/03/17 0500 Results 24 hrs Laboratory Tests Test 02/02/17 08:26 02/02/17 08:27 02/02/17 09:06 02/02/17 10:15 Lab Scanned Report REFERENCE LAB REFERENCE LAB Bedside Glucose 189 214 Test 02/02/17 12:22 02/02/17 13:00 02/02/17 13:57 02/02/17 17:30 Bedside Glucose 143 119 103 Blood Gas Specimen Source Blood arterial Arterial Blood Date Drawn 02/02/2017 1:04:32 PM Arterial Blood pH (Temp corrected) 7.524 H Arterial Blood pCO2 (Temp correct) 32.1 L Arterial Blood pO2 (Temp corrected) 59.9 L Arterial Blood HCO3 25.9 Arterial Blood Base Excess 3.4 H Arterial Blood Oxygen Saturation 92.3 L George Test ACCEPTAB Arterial Blood Gas Puncture Site Right Radial Arterial Blood Carboxyhemoglobin 0.3 Arterial Blood Methemoglobin 0.2 Blood Gas A-a O2 Differential 116.3 H Oxyhemoglobin Percent 91.8 L Total Hemoglobin 11.2 L Blood Gas Temperature 37.0 Blood Gas Actual Respiration Rate 26 Blood Gas Modality VENT - CPAP FiO2 30.0 Blood Gas Low PEEP Setting 5.0 Blood Gas Pressure Support 10 Blood Gas Notified Whom TM Blood Gas Notified Time 02/02/2017 1:30:31 PM Test 02/02/17 18:00 02/02/17 21:24 02/03/17 01:48 02/03/17 02:43 Blood Gas Specimen Source Blood arterial Arterial Blood Date Drawn 02/02/2017 6:18:00 PM Arterial Blood pH (Temp corrected) 7.532 H Arterial Blood pCO2 (Temp correct) 29.8 L Arterial Blood pO2 (Temp corrected) 70.3 L Arterial Blood HCO3 24.5 Arterial Blood Base Excess 2.4 Arterial Blood Oxygen Saturation 94.4 L George Test ACCEPTAB Arterial Blood Gas Puncture Site Right Radial Arterial Blood Carboxyhemoglobin 0.3 Arterial Blood Methemoglobin 0.3 Blood Gas A-a O2 Differential 331.9 H Oxyhemoglobin Percent 93.8 Total Hemoglobin 11.7 L Blood Gas Temperature 37.0 Blood Gas Modality MASK - SIMPLE FiO2 61.0 Blood Gas Notified Whom DT Blood Gas Notified Time 02/02/2017 6:30:00 PM Bedside Glucose 127 146 149 Test 02/03/17 04:20 02/03/17 05:00 02/03/17 05:17 Bedside Glucose 151 White Blood Count 19.1 H Red Blood Count 3.65 L Hemoglobin 10.3 L Hematocrit 31.4 L Mean Corpuscular Volume 86.0 Mean Corpuscular Hemoglobin 28.2 L Mean Corpuscular Hemoglobin Concent 32.8 Red Cell Distribution Width 20.9 H Platelet Count 95 #L Mean Platelet Volume Neutrophils % 87.5 H Lymphocytes % 2.6 L Monocytes % 8.7 Eosinophils % 0.0 Basophils % 0.2 Nucleated Red Blood Cells % 4.4 H Neutrophils # 16.7 H Lymphocytes # 0.5 L Monocytes # 1.7 H Eosinophils # 0.0 Basophils # 0.0 Nucleated Red Blood Cells # 0.8 H Sodium Level 145 H Potassium Level 3.7 Chloride Level 109 Carbon Dioxide Level 28 Anion Gap 12 Blood Urea Nitrogen 88 H Creatinine 2.38 H Glucose Level 159 Calcium Level 9.1 Phosphorus Level 6.1 H Magnesium Level 2.7 H Lab Scanned Report BLOOD TRANSFUSION Medications Current Medications Ondansetron HCl (Zofran Inj) 4 mg Q6H PRN IV NAUSEA AND/OR VOMITING; Start 01/17 at 14:30 Morphine Sulfate (morphine) 2 mg Q4H PRN IV SEVERE PAIN LEVEL 7-10 Last administered on 01/31/17 07:22; Admin Dose 2 MG; Start 01/17/17 at 14:30 Docusate Sodium (Colace) 100 mg Q12H PRN PO CONSTIPATION; Start 01/17/17 at 14: 30 Febuxostat (Uloric) 40 mg DAILY PO Last administered on 02/02/17 10:09; Admin Dose 40 MG; Start 01/18/17 at 09:00 Diphenhydramine HCl (Benadryl) 25 mg Q4H PRN IV CHILLS; Start 01/17/17 at 18:30 Nicotine 1 patch 1 patch DAILY TRANSDERM Last administered on 02/02/17 10:09; Admin Dose 1 PATCH; Start 01/18/17 at 10:30 Acetaminophen (Ofirmev 1000mg/ 100ml Iv) 100 ml @ 400 mls/hr Q4 PRN IVPB FEVER GREATER THAN 100.6 Last administered on 01/23/17 14:09; Admin Dose 400 MLS /HR; Start 01/19/17 at 00:30 Hydralazine HCl (Apresoline) 10 mg Q4H PRN IV hypertension Last administered on 01/27/17 22:20; Admin Dose 10 MG; Start 01/19/17 at 01:00 Miscellaneous Information 1 ea NOTE XX ; Start 01/19/17 at 09:00 Glucose (Glutose) 15 gm Q15M PRN PO DECREASED GLUCOSE; Start 01/19/17 at 09:00 Glucose (Glutose) 22.5 gm Q15M PRN PO DECREASED GLUCOSE; Start 01/19/17 at 09:00 Dextrose (D50w Syringe) 25 ml Q15M PRN IV DECREASED GLUCOSE; Start 01/19/17 at 09:00 Dextrose (D50w Syringe) 50 ml Q15M PRN IV DECREASED GLUCOSE; Start 01/19/17 at 09:00 Glucagon (Glucagen) 1 mg Q15M PRN IM DECREASED GLUCOSE; Start 01/19/17 at 09:00 Glucose (Glutose) 15 gm Q15M PRN BUCCAL DECREASED GLUCOSE; Start 01/19/17 at 09: 00 IV Flush (NS 10 ml) 10 ml PRN PRN IV FLUSH LINE; Start 01/19/17 at 12:00 Diphenhydramine HCl (Benadryl Liquid Cup) 25 mg QHS PRN NGT ITCHING; Start 01/19 at 21:00 Hydralazine HCl (Apresoline) 25 mg Q4H PRN NGT hypertension Last administered on 01/25/17 12:17; Admin Dose 25 MG; Start 01/19/17 at 20:30 Acetaminophen/ Hydrocodone Bitart ([place] (5/325)) 1 tab Q6H PRN NGT MODERATE PAIN LEVEL 4-6; Start 01/20/17 at 02:30 Magnesium Hydroxide (Milk Of Mag) 30 ml DAILY PRN NGT CONSTIPATION; Start at 20:30 Acetaminophen (Tylenol Liquid) 1,000 mg Q4H PRN NGT PAIN AND OR ELEVATED TEMP; Start 01/19/17 at 20:30; Status Future Hold Docusate Sodium (Colace Liquid Cup) 100 mg TID NGT Last administered on 13:59; Admin Dose 100 MG; Start 01/19/17 at 21:00 Lorazepam (Ativan) 2 mg Q6H PRN IV before LP and MRI Last administered on 11:28; Admin Dose 2 MG; Start 01/20/17 at 00:00 Lansoprazole 30 mg 30 mg DAILY@06 NGT Last administered on 02/02/17 05:21; Admin Dose 30 MG; Start 01/21/17 at 06:00 Norepinephrine/ Dextrose (Levophed/D5W) 500 ml @ 1.87 mls/hr TITRATE IV ; Start 01/20/17 at 17:30 Heparin Sodium (Porcine) (Heparin (5000 Units/0.5 ml)) 5,000 unit BID SC Last administered on 02/02/17 21:19; Admin Dose 5,000 UNIT; Start 01/24/17 at 21:00 Hydralazine HCl 50 mg 50 mg TID NGT Last administered on 02/02/17 21:11; Admin Dose 50 MG; Start 01/26/17 at 21:00 Sodium Chloride (NS) 1,000 ml @ 0 mls/hr Q0M IV Last administered on 07:00; Admin Dose 10 MLS/HR; Start 01/27/17 at 12:00 Diagnostic Test (Pha) (Accu-Chek) 1 ea 02 XX ; Start 02/01/17 at 02:00 Insulin Aspart (Novolog Insulin Pen) NOVOLOG *MODERATE* ALGORI... Q4 SC Last administered on 02/03/17 04:24; Admin Dose 2 UNIT; Start 01/31/17 at 21:00 Epoetin Efrain (Epogen (Neserd)) 6,000 units MoWeFr@17 SC Last administered on 17:36; Admin Dose 6,000 UNITS; Start 02/01/17 at 17:00 Senna (Senokot) 1 tab BID PRN PO CONSTIPATION; Start 02/01/17 at 17:00 Polyethylene Glycol (Miralax) 17 gm DAILY PO Last administered on 02/02/17 10: 09; Admin Dose 17 GM; Start 02/02/17 at 09:00 Atropine Sulfate (Atropine (Syringe)) 1 mg PRN PRN IV DECREASED HEART RATE; Start 02/02/17 at 02:00 Dexamethasone (Decadron) 2 mg Q8 IV Last administered on 02/03/17 05:50; Admin Dose 2 MG; Start 02/02/17 at 14:00 Assessment/Plan Chief Complaint/Hosp Course Assessment/ Recommendations: 1. SICK SINUS syndrome: with long pauses. probably vasovagal will closely monitor for now 2. encephalopathy, west nile virus: defer to ID and neuro rec 3. ESRD: on HD now f/u with renal 4. HTN: will monitor. off of betablocker and cardizem now. 5. anemia; stable . 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
--- NOTE | 2017-02-03 08:25 | PN ---
DATE: 02/03/2017 SUBJECTIVE DATA: The patient was successfully extubated yesterday. The patient is confused. The patient had hemodialysis yesterday with 1 L removed. No other events noted. No hemoptysis, hematemesis, hematochezia. OBJECTIVE DATA: VITAL SIGNS: Blood pressure is 150/85, respirations 22, pulse 107, temperature 98.0. I's and O's: Patient had 470 in with 1 L of urinary output. HEENT: Head is normocephalic. NECK: Supple. HEART: Regular rate. LUNGS: Show diminished breath sounds at the base. ABDOMEN: Soft, nontender to palpation. No rebound or guarding. EXTREMITIES: Negative for clubbing, cyanosis. Trace edema. DERMATOLOGIC: Clean. No rashes. MUSCULOSKELETAL: No joint effusion. NEUROLOGIC: No change in exam. MEDICATIONS: Reviewed. LABORATORY AND DIAGNOSTIC DATA: Shows sodium 145, potassium 3.7, BUN 88, creatinine 2.38, phosphorus 6.1, magnesium 2.7. White count 19.1, hemoglobin 10.3, crit of 31.4, platelet count is 95. ASSESSMENT AND PLAN: 1. Nonoliguric acute kidney injury on top of chronic kidney disease with previous baseline creatinine 1.7 to 2.0 mg/dL. Etiology of acute kidney injury is secondary to acute tubular necrosis. The patient was initiated on hemodialysis. The patient had dialysis yesterday, tolerated well, approximately 2 L removed. The patient has good urinary output. We will monitor for signs of renal recovery. 2. Anemia. Continue to monitor H and H levels. We will give intermittent Epogen as needed. 3. Mineral bone disorder. Monitor calcium and phosphorus levels. No need for phosphorus binders at this time. 4. Hypermagnesemia secondary to acute kidney injury. Continue to monitor. Continue dialysis as needed. 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 The patient is status post intravenous immunoglobulin. Continue to monitor. Follow up with Neurology. 6. Respiratory failure, status post extubation. The patient is currently on face mask. Continue to monitor. 7. Severe sepsis. Continue current medical management. History of Abbi's granulomatosis. The patient is status post Rituxan. Continue to monitor. 8. Follow up with Rheumatology. 9. Gastrointestinal and deep venous thrombosis prophylaxis. 10. Mild hyponatremia. Would continue free water flushes through nasogastric tube. Dictated By: Jim Sierra DO /[email or web address] /Document#: [id number]
[2017-02-03] MEDS: POLYETHYLENE GLYCOL 17 GM PACKET PO SCH (09:00)
[2017-02-03] MEDS: HEPARIN 5,000 UNIT/0.5 ML VIAL SC SCH ×2 (09:56→20:34)
[2017-02-03] MEDS: NICOTINE (14 MG/24 HR) PATCH TRANSDERM SCH (09:56)
[2017-02-03] MEDS: DOCUSATE SODIUM 10 MG/ML (10ML CUP) NGT SCH ×2 (13:00→20:32)
--- NOTE | 2017-02-03 13:17 | RADRPT ---
PROCEDURE: XR Chest 1 View. CLINICAL INDICATION: Status post nasogastric tube placement. TECHNIQUE: AP view of the chest was obtained. COMPARISON: February 01, 2017 FINDINGS: The heart size is within normal limits. Calcified atherosclerosis is noted in the aorta. Nasogastri c tube has its distal end in the expected location of the stomach. Left-sided PICC line is stable. E ndotracheal tube has been removed. Scattered atelectasis is seen in the bilateral lower lobes. Mild interstitial prominence is seen in both lungs. Osseous structures are intact. IMPRESSION: Calcified atherosclerosis in the aorta. Nasogastric tube with its distal end in the expected location of the stomach. Stable mild interstitial prominence in both lungs. Interstitial prominence could be chronic. Atelectasis in the bilateral lower lobes. RPTAT: AA .Giovanny Boyd MD, Date Time Electronically viewed and signed by .Giovanny Boyd MD, on 02/03/2017 13:17 .P/
--- NOTE | 2017-02-03 13:29 | CONS ---
Date/Time of Note Date/Time of Note DATE: 02/03/17 TIME: 13:26 Consult Date/Type/Reason Admit Date/Time Jan 17, 2017 at 17:33 Type of Consultation: Pulmonary Subjective Patient remains stable post extubation. Awake but confused. Not following commands. Off vasopressors. Failed swallow evaluation. Objective Vital Signs Date Time Temp Pulse Resp B/P Pulse Ox O2 Delivery O2 Flow Rate FiO2 02/03/17 12:00 110 02/03/17 11:00 25 151/92 95 Nasal Cannula 4.0 02/03/17 08:00 98.9 02/02/17 13:20 30 Intake and Output 02/02/17 02/02/17 02/03/17 15:00 23:00 07:00 Intake Total 415.0 ml Output Total 2606 ml 165 ml 654 ml Balance -2191.0 ml -165 ml -654 ml Exam GENERAL: Elderly [place] gentleman appears comfortable at rest VITAL SIGNS: per chart NECK: Supple. No JVD or lymphadenopathy. CARDIAC EXAM: S1, S2. No added sounds or murmurs. CHEST: clear bilaterally, No added sounds, rales or wheezes ABDOMEN: Soft, nontender. No guarding or rebound. EXTREMITIES: No cyanosis, clubbing or edema. NEUROLOGIC: Generalized weakness. No focal deficits. Results/Medications Result Diagram: 02/03/17 0500 02/03/17 0500 Results 24 hrs Laboratory Tests Test 02/02/17 13:57 02/02/17 17:30 02/02/17 18:00 02/02/17 21:24 Bedside Glucose 119 103 127 Blood Gas Specimen Source Blood arterial Arterial Blood Date Drawn 02/02/2017 6:18:00 PM Arterial Blood pH (Temp corrected) 7.532 H Arterial Blood pCO2 (Temp correct) 29.8 L Arterial Blood pO2 (Temp corrected) 70.3 L Arterial Blood HCO3 24.5 Arterial Blood Base Excess 2.4 Arterial Blood Oxygen Saturation 94.4 L George Test ACCEPTAB Arterial Blood Gas Puncture Site Right Radial Arterial Blood Carboxyhemoglobin 0.3 Arterial Blood Methemoglobin 0.3 Blood Gas A-a O2 Differential 331.9 H Oxyhemoglobin Percent 93.8 Total Hemoglobin 11.7 L Blood Gas Temperature 37.0 Blood Gas Modality MASK - SIMPLE FiO2 61.0 Blood Gas Notified Whom DT Blood Gas Notified Time 02/02/2017 6:30:00 PM Test 02/03/17 01:48 02/03/17 02:43 02/03/17 04:20 02/03/17 05:00 Bedside Glucose 146 149 151 White Blood Count 19.1 H Red Blood Count 3.65 L Hemoglobin 10.3 L Hematocrit 31.4 L Mean Corpuscular Volume 86.0 Mean Corpuscular Hemoglobin 28.2 L Mean Corpuscular Hemoglobin Concent 32.8 Red Cell Distribution Width 20.9 H Platelet Count 95 #L Mean Platelet Volume Neutrophils % 87.5 H Lymphocytes % 2.6 L Monocytes % 8.7 Eosinophils % 0.0 Basophils % 0.2 Nucleated Red Blood Cells % 4.4 H Neutrophils # 16.7 H Lymphocytes # 0.5 L Monocytes # 1.7 H Eosinophils # 0.0 Basophils # 0.0 Nucleated Red Blood Cells # 0.8 H Sodium Level 145 H Potassium Level 3.7 Chloride Level 109 Carbon Dioxide Level 28 Anion Gap 12 Blood Urea Nitrogen 88 H Creatinine 2.38 H Glucose Level 159 Calcium Level 9.1 Phosphorus Level 6.1 H Magnesium Level 2.7 H Test 02/03/17 05:17 02/03/17 09:47 Lab Scanned Report BLOOD TRANSFUSION Bedside Glucose 151 Medications Current Medications Ondansetron HCl (Zofran Inj) 4 mg Q6H PRN IV NAUSEA AND/OR VOMITING; Start 01/17 at 14:30 Morphine Sulfate (morphine) 2 mg Q4H PRN IV SEVERE PAIN LEVEL 7-10 Last administered on 01/31/17 07:22; Admin Dose 2 MG; Start 01/17/17 at 14:30 Docusate Sodium (Colace) 100 mg Q12H PRN PO CONSTIPATION; Start 01/17/17 at 14: 30 Febuxostat (Uloric) 40 mg DAILY PO Last administered on 02/02/17 10:09; Admin Dose 40 MG; Start 01/18/17 at 09:00 Diphenhydramine HCl (Benadryl) 25 mg Q4H PRN IV CHILLS; Start 01/17/17 at 18:30 Nicotine 1 patch 1 patch DAILY TRANSDERM Last administered on 02/03/17 09:56; Admin Dose 1 PATCH; Start 01/18/17 at 10:30 Acetaminophen (Ofirmev 1000mg/ 100ml Iv) 100 ml @ 400 mls/hr Q4 PRN IVPB FEVER GREATER THAN 100.6 Last administered on 01/23/17 14:09; Admin Dose 400 MLS /HR; Start 01/19/17 at 00:30 Hydralazine HCl (Apresoline) 10 mg Q4H PRN IV hypertension Last administered on 01/27/17 22:20; Admin Dose 10 MG; Start 01/19/17 at 01:00 Miscellaneous Information 1 ea NOTE XX ; Start 01/19/17 at 09:00 Glucose (Glutose) 15 gm Q15M PRN PO DECREASED GLUCOSE; Start 01/19/17 at 09:00 Glucose (Glutose) 22.5 gm Q15M PRN PO DECREASED GLUCOSE; Start 01/19/17 at 09:00 Dextrose (D50w Syringe) 25 ml Q15M PRN IV DECREASED GLUCOSE; Start 01/19/17 at 09:00 Dextrose (D50w Syringe) 50 ml Q15M PRN IV DECREASED GLUCOSE; Start 01/19/17 at 09:00 Glucagon (Glucagen) 1 mg Q15M PRN IM DECREASED GLUCOSE; Start 01/19/17 at 09:00 Glucose (Glutose) 15 gm Q15M PRN BUCCAL DECREASED GLUCOSE; Start 01/19/17 at 09: 00 IV Flush (NS 10 ml) 10 ml PRN PRN IV FLUSH LINE; Start 01/19/17 at 12:00 Diphenhydramine HCl (Benadryl Liquid Cup) 25 mg QHS PRN NGT ITCHING; Start 01/19 at 21:00 Hydralazine HCl (Apresoline) 25 mg Q4H PRN NGT hypertension Last administered on 01/25/17 12:17; Admin Dose 25 MG; Start 01/19/17 at 20:30 Acetaminophen/ Hydrocodone Bitart ([place] (5/325)) 1 tab Q6H PRN NGT MODERATE PAIN LEVEL 4-6; Start 01/20/17 at 02:30 Magnesium Hydroxide (Milk Of Mag) 30 ml DAILY PRN NGT CONSTIPATION; Start at 20:30 Acetaminophen (Tylenol Liquid) 1,000 mg Q4H PRN NGT PAIN AND OR ELEVATED TEMP; Start 01/19/17 at 20:30; Status Future Hold Docusate Sodium (Colace Liquid Cup) 100 mg TID NGT Last administered on 13:59; Admin Dose 100 MG; Start 01/19/17 at 21:00 Lorazepam (Ativan) 2 mg Q6H PRN IV before LP and MRI Last administered on 11:28; Admin Dose 2 MG; Start 01/20/17 at 00:00 Lansoprazole 30 mg 30 mg DAILY@06 NGT Last administered on 02/02/17 05:21; Admin Dose 30 MG; Start 01/21/17 at 06:00 Norepinephrine/ Dextrose (Levophed/D5W) 500 ml @ 1.87 mls/hr TITRATE IV ; Start 01/20/17 at 17:30 Heparin Sodium (Porcine) (Heparin (5000 Units/0.5 ml)) 5,000 unit BID SC Last administered on 02/03/17 09:56; Admin Dose 5,000 UNIT; Start 01/24/17 at 21:00 Hydralazine HCl 50 mg 50 mg TID NGT Last administered on 02/02/17 21:11; Admin Dose 50 MG; Start 01/26/17 at 21:00 Sodium Chloride (NS) 1,000 ml @ 0 mls/hr Q0M IV Last administered on 07:00; Admin Dose 10 MLS/HR; Start 01/27/17 at 12:00 Diagnostic Test (Pha) (Accu-Chek) 1 ea 02 XX ; Start 02/01/17 at 02:00 Insulin Aspart (Novolog Insulin Pen) NOVOLOG *MODERATE* ALGORI... Q4 SC Last administered on 02/03/17 09:49; Admin Dose 2 UNIT; Start 01/31/17 at 21:00 Epoetin Efrain (Epogen (Neserd)) 6,000 units MoWeFr@17 SC Last administered on 17:36; Admin Dose 6,000 UNITS; Start 02/01/17 at 17:00 Senna (Senokot) 1 tab BID PRN PO CONSTIPATION; Start 02/01/17 at 17:00 Polyethylene Glycol (Miralax) 17 gm DAILY PO Last administered on 02/02/17 10: 09; Admin Dose 17 GM; Start 02/02/17 at 09:00 Atropine Sulfate (Atropine (Syringe)) 1 mg PRN PRN IV DECREASED HEART RATE; Start 02/02/17 at 02:00 Dexamethasone (Decadron) 2 mg Q8 IV Last administered on 02/03/17t 05:50; Admin Dose 2 MG; Start 02/02/17 at 14:00 Assessment/Plan Chief Complaint/Hosp Course IMPRESSION: 1. Status post hypoxemic respiratory failure 2. 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 3. Renal insufficiency 4. Hx Lung Ca 5. Abbi granulomatosis. 6. Aspiration risk PLAN: 1. Continue aspiration precautions, may require PEG tube 2. Supportive care for West Nile virus 3. ID recs 4. DVT and GI prophylaxis. Consider transfer to telemetry Problems: CAROL DÍAZ MD, [facility] Feb 03, 2017 13:29
--- NOTE | 2017-02-03 14:04 | CONS ---
Date/Time of Note Date/Time of Note DATE: 02/03/17 TIME: 13:57 Consult Date/Type/Reason Admit Date/Time Jan 17, 2017 at 17:33 Type of Consultation: neuro Subjective extubated yesterday Objective Vital Signs Date Time Temp Pulse Resp B/P Pulse Ox O2 Delivery O2 Flow Rate FiO2 02/03/17 12:00 110 02/03/17 12:00 Nasal Cannula 4.0 02/03/17 11:00 25 151/92 95 02/03/17 08:00 98.9 02/02/17 13:20 30 Intake and Output 02/02/17 02/02/17 02/03/17 15:00 23:00 07:00 Intake Total 415.0 ml Output Total 2606 ml 165 ml 654 ml Balance -2191.0 ml -165 ml -654 ml Exam NEUROLOGIC: Patient is awake, recognizes relatives, follows simple commands, Mumbles, hard to understand answers Blinks to visual threat bilaterally. Pupils about 2 mm sluggish. Extraocular movements intact. Corneal reflexes present bilaterally Motor strength examination moved hands feet, lifts LUE. Slightly increased tone in upper extremities, cogwheeling. Deep tendon reflexes, 2+ upper extremities, none LE. No response to plantar stimulation bilaterally. Severe nuchal rigidity still present. Tremor in the jaw, at times left UE Results/Medications Result Diagram: 02/03/17 0500 02/03/17 0500 Results 24 hrs Laboratory Tests Test 02/02/17 17:30 02/02/17 18:00 02/02/17 21:24 02/03/17 01:48 Bedside Glucose 103 127 146 Blood Gas Specimen Source Blood arterial Arterial Blood Date Drawn 02/02/2017 6:18:00 PM Arterial Blood pH (Temp corrected) 7.532 H Arterial Blood pCO2 (Temp correct) 29.8 L Arterial Blood pO2 (Temp corrected) 70.3 L Arterial Blood HCO3 24.5 Arterial Blood Base Excess 2.4 Arterial Blood Oxygen Saturation 94.4 L George Test ACCEPTAB Arterial Blood Gas Puncture Site Right Radial Arterial Blood Carboxyhemoglobin 0.3 Arterial Blood Methemoglobin 0.3 Blood Gas A-a O2 Differential 331.9 H Oxyhemoglobin Percent 93.8 Total Hemoglobin 11.7 L Blood Gas Temperature 37.0 Blood Gas Modality MASK - SIMPLE FiO2 61.0 Blood Gas Notified Whom DT Blood Gas Notified Time 02/02/2017 6:30:00 PM Test 02/03/17 02:43 02/03/17 04:20 02/03/17 05:00 02/03/17 05:17 Bedside Glucose 149 151 White Blood Count 19.1 H Red Blood Count 3.65 L Hemoglobin 10.3 L Hematocrit 31.4 L Mean Corpuscular Volume 86.0 Mean Corpuscular Hemoglobin 28.2 L Mean Corpuscular Hemoglobin Concent 32.8 Red Cell Distribution Width 20.9 H Platelet Count 95 #L Mean Platelet Volume Neutrophils % 87.5 H Lymphocytes % 2.6 L Monocytes % 8.7 Eosinophils % 0.0 Basophils % 0.2 Nucleated Red Blood Cells % 4.4 H Neutrophils # 16.7 H Lymphocytes # 0.5 L Monocytes # 1.7 H Eosinophils # 0.0 Basophils # 0.0 Nucleated Red Blood Cells # 0.8 H Sodium Level 145 H Potassium Level 3.7 Chloride Level 109 Carbon Dioxide Level 28 Anion Gap 12 Blood Urea Nitrogen 88 H Creatinine 2.38 H Glucose Level 159 Calcium Level 9.1 Phosphorus Level 6.1 H Magnesium Level 2.7 H Lab Scanned Report BLOOD TRANSFUSION Test 02/03/17 09:47 Bedside Glucose 151 Medications Current Medications Ondansetron HCl (Zofran Inj) 4 mg Q6H PRN IV NAUSEA AND/OR VOMITING; Start 01/17 at 14:30 Morphine Sulfate (morphine) 2 mg Q4H PRN IV SEVERE PAIN LEVEL 7-10 Last administered on 01/31/17 07:22; Admin Dose 2 MG; Start 01/17/17 at 14:30 Docusate Sodium (Colace) 100 mg Q12H PRN PO CONSTIPATION; Start 01/17/17 at 14: 30 Febuxostat (Uloric) 40 mg DAILY PO Last administered on 02/02/17 10:09; Admin Dose 40 MG; Start 01/18/17 at 09:00 Diphenhydramine HCl (Benadryl) 25 mg Q4H PRN IV CHILLS; Start 01/17/17 at 18:30 Nicotine 1 patch 1 patch DAILY TRANSDERM Last administered on 02/03/17 09:56; Admin Dose 1 PATCH; Start 01/18/17 at 10:30 Acetaminophen (Ofirmev 1000mg/ 100ml Iv) 100 ml @ 400 mls/hr Q4 PRN IVPB FEVER GREATER THAN 100.6 Last administered on 01/23/17 14:09; Admin Dose 400 MLS /HR; Start 01/19/17 at 00:30 Hydralazine HCl (Apresoline) 10 mg Q4H PRN IV hypertension Last administered on 01/27/17 22:20; Admin Dose 10 MG; Start 01/19/17 at 01:00 Miscellaneous Information 1 ea NOTE XX ; Start 01/19/17 at 09:00 Glucose (Glutose) 15 gm Q15M PRN PO DECREASED GLUCOSE; Start 01/19/17 at 09:00 Glucose (Glutose) 22.5 gm Q15M PRN PO DECREASED GLUCOSE; Start 01/19/17 at 09:00 Dextrose (D50w Syringe) 25 ml Q15M PRN IV DECREASED GLUCOSE; Start 01/19/17 at 09:00 Dextrose (D50w Syringe) 50 ml Q15M PRN IV DECREASED GLUCOSE; Start 01/19/17 at 09:00 Glucagon (Glucagen) 1 mg Q15M PRN IM DECREASED GLUCOSE; Start 01/19/17 at 09:00 Glucose (Glutose) 15 gm Q15M PRN BUCCAL DECREASED GLUCOSE; Start 01/19/17 at 09: 00 IV Flush (NS 10 ml) 10 ml PRN PRN IV FLUSH LINE; Start 01/19/17 at 12:00 Diphenhydramine HCl (Benadryl Liquid Cup) 25 mg QHS PRN NGT ITCHING; Start 01/19 at 21:00 Hydralazine HCl (Apresoline) 25 mg Q4H PRN NGT hypertension Last administered on 01/25/17 12:17; Admin Dose 25 MG; Start 01/19/17 at 20:30 Acetaminophen/ Hydrocodone Bitart ([place] (5/325)) 1 tab Q6H PRN NGT MODERATE PAIN LEVEL 4-6; Start 01/20/17 at 02:30 Magnesium Hydroxide (Milk Of Mag) 30 ml DAILY PRN NGT CONSTIPATION; Start at 20:30 Acetaminophen (Tylenol Liquid) 1,000 mg Q4H PRN NGT PAIN AND OR ELEVATED TEMP; Start 01/19/17 at 20:30; Status Future Hold Docusate Sodium (Colace Liquid Cup) 100 mg TID NGT Last administered on 13:59; Admin Dose 100 MG; Start 01/19/17 at 21:00 Lorazepam (Ativan) 2 mg Q6H PRN IV before LP and MRI Last administered on 11:28; Admin Dose 2 MG; Start 01/20/17 at 00:00 Lansoprazole 30 mg 30 mg DAILY@06 NGT Last administered on 02/02/17 05:21; Admin Dose 30 MG; Start 01/21/17 at 06:00 Norepinephrine/ Dextrose (Levophed/D5W) 500 ml @ 1.87 mls/hr TITRATE IV ; Start 01/20/17 at 17:30 Heparin Sodium (Porcine) (Heparin (5000 Units/0.5 ml)) 5,000 unit BID SC Last administered on 02/03/17 09:56; Admin Dose 5,000 UNIT; Start 01/24/17 at 21:00 Hydralazine HCl 50 mg 50 mg TID NGT Last administered on 02/02/17 21:11; Admin Dose 50 MG; Start 01/26/17 at 21:00 Sodium Chloride (NS) 1,000 ml @ 0 mls/hr Q0M IV Last administered on 07:00; Admin Dose 10 MLS/HR; Start 01/27/17 at 12:00 Diagnostic Test (Pha) (Accu-Chek) 1 ea 02 XX ; Start 02/01/17 at 02:00 Insulin Aspart (Novolog Insulin Pen) NOVOLOG *MODERATE* ALGORI... Q4 SC Last administered on 02/03/17 09:49; Admin Dose 2 UNIT; Start 01/31/17 at 21:00 Epoetin Efrain (Epogen (Neserd)) 6,000 units MoWeFr@17 SC Last administered on 17:36; Admin Dose 6,000 UNITS; Start 02/01/17 at 17:00 Senna (Senokot) 1 tab BID PRN PO CONSTIPATION; Start 02/01/17 at 17:00 Polyethylene Glycol (Miralax) 17 gm DAILY PO Last administered on 02/02/17 10: 09; Admin Dose 17 GM; Start 02/02/17 at 09:00 Atropine Sulfate (Atropine (Syringe)) 1 mg PRN PRN IV DECREASED HEART RATE; Start 02/02/17 at 02:00 Dexamethasone (Decadron) 2 mg Q8 IV Last administered on 02/03/17t 05:50; Admin Dose 2 MG; Start 02/02/17 at 14:00 Assessment/Plan Chief Complaint/Hosp Course IMPRESSION: 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 Problems: LALO MONACO MD Feb 03, 2017 14:04
[2017-02-03] MEDS: FEBUXOSTAT 40 MG TABLET PO SCH (14:06)
--- NOTE | 2017-02-03 14:14 | PN ---
DATE: 02/03/2017 SUBJECTIVE DATA: The patient was extubated yesterday. He is lethargic, weak and awake. Follows simple commands. He is in no distress. Afebrile. Temperature 98.9, pulse 109, respirations 25, blood pressure 151/92, saturation 95 on 4 L. LABORATORY: WBC 19.1. H and H 10.3 and 31.4, platelets 95, neutrophils 87.5. BUN 88, creatinine 2.38. INDWELLING: The patient has PICC line, right femoral Jesus Manuel and Darden catheter. DIAGNOSTICS: CT of the brain from yesterday revealed opacification of the mastoid air cells bilaterally as seen previously. No intracranial hemorrhage. No change from previous studies. PHYSICAL EXAMINATION: A well-developed, fragile, elderly man, who is in no distress. HEENT: Head atraumatic, normocephalic. Sclerae anicteric. Buccal mucosa dry. NECK: Supple. CHEST: Rise symmetrical. Breath sounds clear. Diminished at the bases. HEART: S1, S2. ABDOMEN: Soft, bowel sounds present. EXTREMITIES: With trace edema, dependent. ASSESSMENT: 1. Resolving encephalopathy. 2. West Nile virus encephalitis. 3. Dysphagia. 4. Status post respiratory failure. 5. Leukocytosis, on Decadron. 6. Jc's granulomatosis. PLAN: The patient remains stable post extubation. Continue present care, anti-aspiration measures. Repeat swallow evaluation tomorrow. Repeat cultures p.r.n. Dictated By: Giancarlo Hodges NP /[email or web address]/[email or web address] /Document#: [id number]
--- NOTE | 2017-02-03 16:39 | PN ---
DATE: 02/03/2017 SUBJECTIVE DATA: The patient was extubated yesterday, breathing comfortably, unfortunately is still quite confused, and at times follows commands. The upper extremity has slight tremor. The case was discussed with staff. OBJECTIVE: VITALS: The patient remains tachycardic, afebrile, temperature 98.9, pulse 100, respirations 25, blood pressure 151/92, saturation 95 percent on 4 L nasal cannula. GENERAL: The patient is confused. NECK: No JVD. CARDIOVASCULAR: S1, S2. Tachycardic. LUNGS: Decreased bilaterally. ABDOMEN: Soft and nontender. EXTREMITIES: Trace to +1 edema, upper and lower extremity. LABS: White count is high at 19.1. The patient is on Decadron. Hemoglobin 10.3, hematocrit 31, platelet count low at 95, neutrophils 88 percent, 3 percent. Chemistry, sodium 145, potassium 3.7, chloride 109, bicarb 28, BUN 88, creatinine 2.38, and glucose 159. Last glucose was 151. Insulin was held. The patient is now off the feeding. CSF pathology did reveal positive West Nile virus. Brain CAT scan done yesterday shows atrophy, microangiopathic ischemic change, atherosclerosis opacification of mastoid air cells bilaterally are seen previously. No intracranial hemorrhages. Otherwise unremarkable noncontrast CT scan of the brain. No change from the prior study. MEDS: 1. Decadron 2 mg IV q.8 with tightening it down. 2. MiraLax 17 grams daily. 3. Atropine as directed. 4. Epogen 6000 on Wednesday, Wednesday, and Wednesday. 5. Senna 1 tab b.i.d. p.r.n. 6. Accu-Chek before meals and nightly. 7. Insulin per sliding scale. 8. Hydralazine 50 t.i.d. 9. Heparin 5000 units b.i.d. 10. Prevacid 20 mg daily. 11. [place] p.r.n. 12. Ativan p.r.n. 13. Benadryl p.r.n. 14. Colace 100 t.i.d. 15. Hydralazine p.r.n. 16. Milk of magnesia p.r.n. 17. Tylenol p.r.n., 18. Duoneb p.r.n., 19. Uloric 40 mg daily. 20. Zofran p.r.n. DIAGNOSTICS: CSF culture is negative. Chest x-ray done on 02/01 shows no change from 01/30. Lungs are clear. ASSESSMENT AND PLAN: This is a 66-year-old, male,with history of Abbi granulomatosis, toxin immunocompromise, chronic kidney disease, nicotine dependency, hypertension, who presented with fever, chills, generalized weakness, and decreased p.o. intake who was diagnosed with West Nile encephalitis/meningitis. 1. Respiratory. Off the vent. Continue O2 support. Breathing treatment as needed. I would keep him in the intensive care unit. The patient was recently extubated and still neurological condition not at baseline. 2. Cardiovascular: Hemodynamically stable. Appreciate cardiology input. The patient had episodes of bradycardia. I did stop the patient's beta blockers. Continue heparin for deep venous thrombosis prophylaxis. Observe. 3. Acute renal failure. May hold dialysis to monitor renal recovery. Appreciate Dr. Sierra's input. Observe. 4. Encephalopathy, likely from the patient's West Nile virus. Continue supportive care. We are tapering down Decadron slowly. 5. Hyperglycemia. Glucose level in the low 100s. Continue off Lantus. Continue Accu-Chek is as needed. 6. Dysphagia. The patient was seen by the speech therapist and failed a swallow evaluation. NG tube to be placed for medication administration and for feeding. Monitor daily to see if diet can be restarted. 7. Elevated liver enzymes. Observe. Ultrasound non- diagnostic. 8. Anemia status post transfusion. Hemoglobin and Hematocrit is stable. 9. Continue stool softeners. 10. When more stable, physical therapy follow-up. 11. Leukocytosis: No evidence of infectious process. This is most likely from steroids. We will continue to monitor for any evidence of infection. If patient is febrile, the patient will be miranda cultured. We will follow. Dictated By: Gurwinder Triplett MD /eladio/sher /Document#: [id number]
[2017-02-03] MEDS: EPOETIN ALFA (NESRD) 3,000 UNITS/ML VIAL SC SCH (18:33)
[2017-02-04] VITALS (84 sets, daily range): BP systolic 72–182; BP diastolic 55–104; PULSE 60–113; RESP 17–40
[2017-02-04] MEDS: ACCU-CHEK XX SCH (02:00)
[2017-02-04] MEDS: INSULIN ASPART [NOVOLOG] 3 ML PEN SC SCH ×6 (02:08→21:00)
[2017-02-04] MEDS: LANSOPRAZOLE 30 MG CAP NGT SCH (05:08)
[2017-02-04 05:31] LABS: ABNORMAL IP MESSAGE 1; BASOPHILS % 0.1 % (0.0-2.0); HEMATOCRIT 29.4 % (42.0-52.0); HEMOGLOBIN 9.5 g/dl (14.0-18.0); LYMPHOCYTES # 0.4 10^3/ul (0.8-2.9); LYMPHOCYTES % 2.2 % (15.0-51.0); MEAN CORPUSCULAR HEMOGLOBIN 28.5 pg (29.0-33.0); MEAN CORPUSCULAR HGB CONC 32.3 g/dl (32.0-37.0); MEAN CORPUSCULAR VOLUME 88.3 fl (82.0-101.0); MONOCYTE # 1.3 10^3/ul (0.3-0.9); MONOCYTES % 7.4 % (0.0-11.0); NEUTROPHIL # 15.7 10^3/ul (1.6-7.5); NEUTROPHILS % 89.2 % (39.0-77.0); NUCLEATED RED BLOOD CELLS # 0.5 10^3/ul (0.0-0.0); NUCLEATED RED BLOOD CELLS% 2.8 /100WBC (0.0-0.0); PLATELET COUNT 91 10^3/UL (140-415); POSITIVE DIFF @See below; RED BLOOD COUNT 3.33 10^6/ul (4.70-6.10); RED CELL DISTRIBUTION WIDTH 21.6 % (11.5-14.5); WHITE BLOOD COUNT 17.6 10^3/ul (4.8-10.8)
[2017-02-04 05:55] LABS: CALCIUM 8.6 mg/dl (8.4-10.2); CREATININE 2.89 mg/dl (0.61-1.24); PHOSPHORUS 6.3 mg/dl (2.5-4.9); POTASSIUM 3.7 mmol/L (3.5-5.1)
[2017-02-04 06:35] LABS: AADO2 Arterial 625.8 mmHg (7.0-24.0); Allen Test ACCEPTAB; Arterial Base Excess -1.3 mmol/L (-3.0-3); Arterial COHb 0.3 % (0.0-3.0); Arterial Fraction of Oxyhgb 86.7 % (93.0-99.0); Arterial HCO3 21.8 mmol/L (22.0-26.0); Arterial MetHb 0.4 % (0.0-1.5); Arterial Total Hemglobin 10.9 g/dl (12.0-18.0); MODE MASK - NRB
[2017-02-04] MEDS ORDERED: ETOMIDATE 20 MG INJ ONE (07:00)
[2017-02-04] MEDS ORDERED: SUCCINYLCHOLINE CHLORIDE 100 MG/5 ML SYG IV ONE (07:00)
--- NOTE | 2017-02-04 07:34 | CONS ---
Date/Time of Note Date/Time of Note DATE: 02/04/17 TIME: 07:32 Consult Date/Type/Reason Admit Date/Time Jan 17, 2017 at 17:33 Type of Consultation: cardiology Subjective CARDIOLOGY FOLLOW UP NOTE: D/W STAFF and rhythm was reviewed. pt remains in NSR. no more pauses seen overnight. pt with increasing resp distress early this am and currently on BIPAP. OBJECTIVE: GEN: on BIPAP with resp distress HEENT: NCAT. pupils are equal neck: no JVD CV: RRR. no m/g/r pulm: no wheezing anteriorly. +mild rhonchi. GI: soft, NT ND. no rebound or guarding. ext + B/L LE edema neuro: awake. nonverbal psych: calm pleasant Derm;' No active bleeding ECHO: 1. Normal left ventricular systolic function. Normal left ventricular cavity size. Moderate concentric left ventricular hypertrophy. Ejection fraction is visually estimated at 65 %. Tissue Doppler/Mitral Doppler indices are consistent with impaired relaxation (Stage I diastolic dysfunction). 2. Normal appearance and function of the mitral valve with trace physiologic regurgitation. 3. No hemodynamically significant aortic stenosis by doppler. Aortic cusps appear mildly calcified. Mild aortic valve regurgitation. 4. Normal appearance of the tricuspid valve. Unable to obtain RVSP due to minimal presence of tricuspid regurgitation. Objective Vital Signs Date Time Temp Pulse Resp B/P Pulse Ox O2 Delivery O2 Flow Rate FiO2 02/04/17 07:00 98.5 02/04/17 07:00 113 37 108/70 100 BIPAP Nasal Cannula 02/04/17 06:59 100 02/04/17 05:14 3.0 Intake and Output 02/03/17 02/03/17 02/04/17 15:00 23:00 07:00 Intake Total 60 ml 210 ml 460 ml Output Total 495 ml 370 ml 366 ml Balance -435 ml -160 ml 94 ml Results/Medications Result Diagram: 02/04/17 0400 02/04/17 0400 Results 24 hrs Laboratory Tests Test 02/03/17 09:47 02/03/17 14:00 02/03/17 17:13 02/03/17 19:18 Bedside Glucose 151 146 165 205 Test 02/03/17 20:30 02/04/17 02:05 02/04/17 04:00 02/04/17 04:59 Bedside Glucose 185 185 150 White Blood Count 17.6 H Red Blood Count 3.33 L Hemoglobin 9.5 L Hematocrit 29.4 L Mean Corpuscular Volume 88.3 Mean Corpuscular Hemoglobin 28.5 L Mean Corpuscular Hemoglobin Concent 32.3 Red Cell Distribution Width 21.6 H Platelet Count 91 L Mean Platelet Volume Neutrophils % 89.2 H Lymphocytes % 2.2 L Monocytes % 7.4 Eosinophils % 0.0 Basophils % 0.1 Nucleated Red Blood Cells % 2.8 H Neutrophils # 15.7 H Lymphocytes # 0.4 L Monocytes # 1.3 H Eosinophils # 0.0 Basophils # 0.0 Nucleated Red Blood Cells # 0.5 H Sodium Level 151 H Potassium Level 3.7 Chloride Level 115 H Carbon Dioxide Level 25 Anion Gap 15 Blood Urea Nitrogen 119 #H Creatinine 2.89 H Glucose Level 152 Calcium Level 8.6 Phosphorus Level 6.3 H Magnesium Level 3.0 H Test 02/04/17 06:19 Blood Gas Specimen Source Blood arterial Arterial Blood Date Drawn 02/04/2017 6:20:17 AM Arterial Blood pH (Temp corrected) 7.465 H Arterial Blood pCO2 (Temp correct) 31.0 L Arterial Blood pO2 (Temp corrected) 56.2 L Arterial Blood HCO3 21.8 L Arterial Blood Base Excess -1.3 Arterial Blood Oxygen Saturation 87.3 L George Test ACCEPTAB Arterial Blood Gas Puncture Site Right Radial Arterial Blood Carboxyhemoglobin 0.3 Arterial Blood Methemoglobin 0.4 Blood Gas A-a O2 Differential 625.8 H Oxyhemoglobin Percent 86.7 L Total Hemoglobin 10.9 L Blood Gas Temperature 37.0 Blood Gas Modality MASK - NRB FiO2 100.0 Blood Gas Notified Whom UP Blood Gas Notified Time 02/04/2017 6:35:02 AM Medications Current Medications Ondansetron HCl (Zofran Inj) 4 mg Q6H PRN IV NAUSEA AND/OR VOMITING; Start 01/17 at 14:30 Morphine Sulfate (morphine) 2 mg Q4H PRN IV SEVERE PAIN LEVEL 7-10 Last administered on 01/31/17t 07:22; Admin Dose 2 MG; Start 01/17/17 at 14:30 Docusate Sodium (Colace) 100 mg Q12H PRN PO CONSTIPATION; Start 01/17/17 at 14: 30 Febuxostat (Uloric) 40 mg DAILY PO Last administered on 02/03/17 14:06; Admin Dose 40 MG; Start 01/18/17 at 09:00 Diphenhydramine HCl (Benadryl) 25 mg Q4H PRN IV CHILLS; Start 01/17/17 at 18:30 Nicotine 1 patch 1 patch DAILY TRANSDERM Last administered on 02/03/17 09:56; Admin Dose 1 PATCH; Start 01/18/17 at 10:30 Acetaminophen (Ofirmev 1000mg/ 100ml Iv) 100 ml @ 400 mls/hr Q4 PRN IVPB FEVER GREATER THAN 100.6 Last administered on 01/23/17 14:09; Admin Dose 400 MLS /HR; Start 01/19/17 at 00:30 Hydralazine HCl (Apresoline) 10 mg Q4H PRN IV hypertension Last administered on 01/27/17 22:20; Admin Dose 10 MG; Start 01/19/17 at 01:00 Miscellaneous Information 1 ea NOTE XX ; Start 01/19/17 at 09:00 Glucose (Glutose) 15 gm Q15M PRN PO DECREASED GLUCOSE; Start 01/19/17 at 09:00 Glucose (Glutose) 22.5 gm Q15M PRN PO DECREASED GLUCOSE; Start 01/19/17 at 09:00 Dextrose (D50w Syringe) 25 ml Q15M PRN IV DECREASED GLUCOSE; Start 01/19/17 at 09:00 Dextrose (D50w Syringe) 50 ml Q15M PRN IV DECREASED GLUCOSE; Start 01/19/17 at 09:00 Glucagon (Glucagen) 1 mg Q15M PRN IM DECREASED GLUCOSE; Start 01/19/17 at 09:00 Glucose (Glutose) 15 gm Q15M PRN BUCCAL DECREASED GLUCOSE; Start 01/19/17 at 09: 00 IV Flush (NS 10 ml) 10 ml PRN PRN IV FLUSH LINE; Start 01/19/17 at 12:00 Diphenhydramine HCl (Benadryl Liquid Cup) 25 mg QHS PRN NGT ITCHING; Start 01/19 at 21:00 Hydralazine HCl (Apresoline) 25 mg Q4H PRN NGT hypertension Last administered on 01/25/17 12:17; Admin Dose 25 MG; Start 01/19/17 at 20:30 Acetaminophen/ Hydrocodone Bitart ([place] (5/325)) 1 tab Q6H PRN NGT MODERATE PAIN LEVEL 4-6; Start 01/20/17 at 02:30 Magnesium Hydroxide (Milk Of Mag) 30 ml DAILY PRN NGT CONSTIPATION; Start at 20:30 Acetaminophen (Tylenol Liquid) 1,000 mg Q4H PRN NGT PAIN AND OR ELEVATED TEMP; Start 01/19/17 at 20:30; Status Future Hold Docusate Sodium (Colace Liquid Cup) 100 mg TID NGT Last administered on 13:59; Admin Dose 100 MG; Start 01/19/17 at 21:00 Lorazepam (Ativan) 2 mg Q6H PRN IV before LP and MRI Last administered on 11:28; Admin Dose 2 MG; Start 01/20/17 at 00:00 Lansoprazole 30 mg 30 mg DAILY@06 NGT Last administered on 02/04/17 05:08; Admin Dose 30 MG; Start 01/21/17 at 06:00 Norepinephrine/ Dextrose (Levophed/D5W) 500 ml @ 1.87 mls/hr TITRATE IV ; Start 01/20/17 at 17:30 Heparin Sodium (Porcine) (Heparin (5000 Units/0.5 ml)) 5,000 unit BID SC Last administered on 02/03/17 20:34; Admin Dose 5,000 UNIT; Start 01/24/17 at 21:00 Hydralazine HCl 50 mg 50 mg TID NGT Last administered on 02/03/17 20:31; Admin Dose 50 MG; Start 01/26/17 at 21:00 Sodium Chloride (NS) 1,000 ml @ 0 mls/hr Q0M IV Last administered on 07:00; Admin Dose 10 MLS/HR; Start 01/27/17 at 12:00 Diagnostic Test (Pha) (Accu-Chek) 1 ea 02 XX ; Start 02/01/17 at 02:00 Insulin Aspart (Novolog Insulin Pen) NOVOLOG *MODERATE* ALGORI... Q4 SC Last administered on 02/04/17 05:03; Admin Dose 2 UNIT; Start 01/31/17 at 21:00 Epoetin Efrain (Epogen (Neserd)) 6,000 units MoWeFr@17 SC Last administered on t 18:33; Admin Dose 6,000 UNITS; Start 02/01/17 at 17:00 Senna (Senokot) 1 tab BID PRN PO CONSTIPATION; Start 02/01/17 at 17:00 Polyethylene Glycol (Miralax) 17 gm DAILY PO Last administered on 02/02/17t 10: 09; Admin Dose 17 GM; Start 02/02/17 at 09:00 Atropine Sulfate (Atropine (Syringe)) 1 mg PRN PRN IV DECREASED HEART RATE; Start 02/02/17 at 02:00 Dexamethasone (Decadron) 4 mg DAILY IV ; Start 02/04/17 at 09:00 Assessment/Plan Chief Complaint/Hosp Course Assessment/ Recommendations: 1. SICK SINUS syndrome: with long pauses. probably vasovagal: currently stable . will closely monitor for now 2. encephalopathy, west nile virus: defer to ID and neuro rec 3. ESRD: on HD now f/u with renal 4. HTN: will monitor. off of betablocker and cardizem now. 5. anemia; stable . 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 resp failure; on BIPAP now. ABG will be repeated. f/u with pulm rec. THANK YOU HERIBERTO FROST MD [facility] Problems: HERIBERTO FROST MD Feb 04, 2017 07:34
--- NOTE | 2017-02-04 08:22 | RADRPT ---
PROCEDURE: XR Chest 1 View. CLINICAL INDICATION: Shortness of breath, follow up. TECHNIQUE: AP view of the chest was obtained. COMPARISON: Yesterday. FINDINGS: The heart size is within normal limits. Calcified atherosclerosis is noted in the aorta. Nasogastri c tube has its tip in the expected location of the distal thoracic esophagus. Left-sided PICC line i s stable. Scattered atelectasis is noted in the bilateral lower lobes. No consolidations are identif ied. No pneumothorax is seen. The osseous structures are unchanged. IMPRESSION: Calcified atherosclerosis in the aorta. Interval nasogastric tube retraction. Tip is now identified at the level of the distal thoracic esop hagus. Advancement by approximately 14 cm is advised. Scattered atelectasis in the bilateral lower lobes. RPTAT: AA .Giovanny Boyd MD, Date Time Electronically viewed and signed by .Giovanny Boyd MD, on 02/04/2017 08:22 .P/
[2017-02-04] MEDS ORDERED: PROPOFOL 100 ML ONE (08:29)
--- NOTE | 2017-02-04 08:36 | PN ---
DATE: 02/04/2017 SUBJECTIVE DATA: The patient was noted to be in respiratory distress early this morning. Currently on 100 percent non- rebreather. No other acute events noted. No hemoptysis, hematemesis, hematochezia. The patient also noted to be febrile. OBJECTIVE DATA: VITAL SIGNS: Blood pressure is 108/70, respirations 37, pulse 113, temperature 98.8. HEENT: Head is normocephalic. NECK: Supple. HEART: Regular rate. LUNGS: Showed diminished breath sounds at the base. ABDOMEN: Soft, nontender to palpation. No rebound or guarding. EXTREMITIES: Negative for clubbing, cyanosis. No edema. DERMATOLOGIC: No rashes. MUSCULOSKELETAL: No joint effusion. NEUROLOGIC: No change in exam. MEDICATIONS: Reviewed. LABORATORY AND DIAGNOSTIC DATA: Shows sodium 151, potassium 3.7, chloride 115, BUN 19, creatinine 2.89, phosphorus 6.3, magnesium 3.0, white count is 17.6, hemoglobin 9.5, hematocrit 29.4, platelet count is 91. The patient's chest x-ray was reviewed. ASSESSMENT AND PLAN: 1. Nonoliguric acute kidney injury on top of chronic kidney disease with previous baseline creatinine 1.7 to 2.0 mg/dL. Etiology of acute kidney injury secondary acute tubular necrosis. The patient is currently dialysis dependent. Will have dialysis today for 3 hours on 2K bath, calcium 2.5, ultrafiltration as tolerated. 2. Hypernatremia. The patient has a free water deficit of approximately 2.5 L. We will dialyze the patient 140 sodium bath. Will start the patient on D5 water. 3. Anemia. Monitor H and H levels. 4. Mineral bone disorder. Monitor calcium and phosphorus levels. 5. Hypomagnesemia, secondary to acute kidney injury. Continue to monitor. Continue dialysis. 6. Acute respiratory failure. The patient is status post extubation; however, currently is tachypneic, may require re- intubation. Continue to monitor. Follow up chest x-ray. Follow up Pulmonary. 7. West Nile encephalitis. Continue current medical management. The patient is status post IVIG. 8. Severe sepsis. Continue antibiotic regimen. Follow up with Infectious Disease. 9. History of Jc's granulomatosis. Patient status post Rituxan. Continue to monitor. Follow up with Rheumatology. 10. Gastrointestinal and deep venous thrombosis prophylaxis. Dictated By: Jim Sierra DO /eladio/eliza /Document#: [id number]
[2017-02-04] MEDS ORDERED: SOD CHLORIDE 0.9% 500 ML IV ONE (09:00)
[2017-02-04] MEDS: DOCUSATE SODIUM 10 MG/ML (10ML CUP) NGT SCH ×3 (09:00→21:00)
[2017-02-04] MEDS: POLYETHYLENE GLYCOL 17 GM PACKET PO SCH (09:00)
[2017-02-04] MEDS: DEXTROSE 5% 1,000 ML IV SCH (09:02)
[2017-02-04] MEDS: PROPOFOL 100 ML IV SCH ×3 (09:03→20:20)
[2017-02-04] MEDS: NICOTINE (14 MG/24 HR) PATCH TRANSDERM SCH (09:07)
[2017-02-04] MEDS: DEXAMETHASONE 4 MG/ML 1 ML INJ IV SCH (09:07)
[2017-02-04] MEDS: FEBUXOSTAT 40 MG TABLET PO SCH (09:07)
[2017-02-04] MEDS: HEPARIN 5,000 UNIT/0.5 ML VIAL SC SCH ×2 (09:09→21:46)
--- NOTE | 2017-02-04 09:15 | RADRPT ---
PROCEDURE: XR Chest. CLINICAL INDICATION: Endotracheal tube placement. TECHNIQUE: Chest x-ray, single view. COMPARISON: 02/04/2017 at 0720 hours. FINDINGS: The cardiomediastinal silhouette is normal.Thoracic aortic arch atherosclerotic calcification is pre sent.Pulmonary vascularity is within normal limits.Low lung volumes are observed. There is no focal pulmonary parenchymal opacification. a left upper extremity PICC is in place and terminates at the SVC/right atrial junction. An endotracheal tube is in place and terminates at the level of the cervi cothoracic junction. There is no evidence of large layering pleural effusion. Skeletal structures ar e unremarkable. An enteric tube is in place and terminates within the distal esophagus. The visualiz ed upper abdomen is unremarkable. IMPRESSION: Support lines and tubes, as above. The enteric tube terminates within the distal esophagus. Advancem ent into the stomach is recommended. No radiographic evidence of acute cardiopulmonary pathology. RPTAT: [id number] .Sarai Savage MD, MD Date Time Electronically viewed and signed by .Sarai Savage MD, on 02/04/2017 09:15 .T/
--- NOTE | 2017-02-04 09:18 | RADRPT ---
PROCEDURE: XR Chest. CLINICAL INDICATION: Endotracheal tube placement. TECHNIQUE: Chest x-ray, single view. COMPARISON: 02/04/2017 at 0832 hours. FINDINGS: The cardiomediastinal silhouette is normal.Thoracic aortic arch atherosclerotic calcification is pre sent.Pulmonary vascularity is within normal limits.Low lung volumes are observed. There is no focal pulmonary parenchymal opacification. The left upper extremity PICC terminates at the SVC/right atri al junction. The endotracheal tube has been advanced and terminates at approximately T4-T5. There is no evidence of large layering pleural effusion. Skeletal structures are unremarkable. The enteric t ube terminates near the gastroesophageal junction. The visualized upper abdomen is unremarkable. IMPRESSION: No radiographic evidence of acute cardiopulmonary pathology. Support lines and tubes, as above. The enteric tube terminates near the gastroesophageal junction. F urther advancement into the stomach is recommended. RPTAT: [id number] .Sarai Savage MD, MD Date Time Electronically viewed and signed by .Sarai Savage MD, on 02/04/2017 09:17 .T/
--- NOTE | 2017-02-04 09:20 | RADRPT ---
PROCEDURE: XR Chest. CLINICAL INDICATION: ET tube placement. TECHNIQUE: Chest x-ray, single view. COMPARISON: 02/04/2017 at 0844 hours. FINDINGS: The cardiomediastinal silhouette is normal. Thoracic aortic arch atherosclerotic calcification is pr esent. Pulmonary vascularity is within normal limits. There is no focal pulmonary parenchymal opacif ication. a left upper extremity PICC is in place and terminates at the SVC/right atrial junction. An endotracheal tube is in place and terminates at the level of the cervicothoracic junction. There is no evidence of large layering pleural effusion. Skeletal structures are unremarkable. An enteric tu be is in place and terminates within the distal esophagus near the gastroesophageal junction. The vi sualized upper abdomen is unremarkable. IMPRESSION: Support lines and tubes, as above. The enteric tube terminates within the distal esophagus near the gastroesophageal junction. Advancement into the stomach is recommended. No radiographic evidence of acute cardiopulmonary pathology. RPTAT: [id number] .Sarai Savage MD, MD Date Time Electronically viewed and signed by .Sarai Savage MD, on 02/04/2017 09:20 .T/
[2017-02-04 09:50] LABS: AADO2 Arterial 344.2 mmHg (7.0-24.0); Allen Test ACCEPTAB; Arterial COHb 0.2 % (0.0-3.0); Arterial Fraction of Oxyhgb 98.3 % (93.0-99.0); Arterial HCO3 21.8 mmol/L (22.0-26.0); Arterial MetHb 0.4 % (0.0-1.5); Arterial Total Hemglobin 10.5 g/dl (12.0-18.0); MODE VENT - AC
[2017-02-04] MEDS: PHENYLephrine 40 MG in DEXTROSE 5% 496 ML IV SCH ×3 (09:52→22:57)
--- NOTE | 2017-02-04 11:20 | CONS ---
Date/Time of Note Date/Time of Note DATE: 02/04/17 TIME: 11:19 Consult Date/Type/Reason Admit Date/Time Jan 17, 2017 at 17:33 Type of Consultation: Pulmonary Subjective The patient had increasing respiratory distress this morning. Increased work of breathing with secretions that he was unable to clear. Persistent hypoxemia despite noninvasive positive pressure ventilation. Objective Vital Signs Date Time Temp Pulse Resp B/P Pulse Ox O2 Delivery O2 Flow Rate FiO2 02/04/17 10:15 109 35 126/87 100 Mechanical Ventilator 02/04/17 08:10 100 02/04/17 08:00 99.9 02/04/17 05:14 3.0 Intake and Output 02/03/17 02/03/17 02/04/17 15:00 23:00 07:00 Intake Total 60 ml 210 ml 460 ml Output Total 495 ml 370 ml 366 ml Balance -435 ml -160 ml 94 ml Exam GENERAL: Elderly [place] gentleman orally intubated on mechanical ventilation VITAL SIGNS: per chart NECK: Supple. No JVD or lymphadenopathy. CARDIAC EXAM: S1, S2. No added sounds or murmurs. CHEST: clear bilaterally, No added sounds, rales or wheezes ABDOMEN: Soft, nontender. No guarding or rebound. EXTREMITIES: No cyanosis, clubbing or edema. NEUROLOGIC: Generalized weakness. No focal deficits. Results/Medications Result Diagram: 02/04/17 0400 02/04/17 0400 Results 24 hrs Laboratory Tests Test 02/03/17 14:00 02/03/17 17:13 02/03/17 19:18 02/03/17 20:30 Bedside Glucose 146 165 205 185 Test 02/04/17 02:05 02/04/17 04:00 02/04/17 04:59 02/04/17 06:19 Bedside Glucose 185 150 White Blood Count 17.6 H Red Blood Count 3.33 L Hemoglobin 9.5 L Hematocrit 29.4 L Mean Corpuscular Volume 88.3 Mean Corpuscular Hemoglobin 28.5 L Mean Corpuscular Hemoglobin Concent 32.3 Red Cell Distribution Width 21.6 H Platelet Count 91 L Mean Platelet Volume Neutrophils % 89.2 H Lymphocytes % 2.2 L Monocytes % 7.4 Eosinophils % 0.0 Basophils % 0.1 Nucleated Red Blood Cells % 2.8 H Neutrophils # 15.7 H Lymphocytes # 0.4 L Monocytes # 1.3 H Eosinophils # 0.0 Basophils # 0.0 Nucleated Red Blood Cells # 0.5 H Sodium Level 151 H Potassium Level 3.7 Chloride Level 115 H Carbon Dioxide Level 25 Anion Gap 15 Blood Urea Nitrogen 119 #H Creatinine 2.89 H Glucose Level 152 Calcium Level 8.6 Phosphorus Level 6.3 H Magnesium Level 3.0 H Blood Gas Specimen Source Blood arterial Arterial Blood Date Drawn 02/04/2017 6:20:17 AM Arterial Blood pH (Temp corrected) 7.465 H Arterial Blood pCO2 (Temp correct) 31.0 L Arterial Blood pO2 (Temp corrected) 56.2 L Arterial Blood HCO3 21.8 L Arterial Blood Base Excess -1.3 Arterial Blood Oxygen Saturation 87.3 L George Test ACCEPTAB Arterial Blood Gas Puncture Site Right Radial Arterial Blood Carboxyhemoglobin 0.3 Arterial Blood Methemoglobin 0.4 Blood Gas A-a O2 Differential 625.8 H Oxyhemoglobin Percent 86.7 L Total Hemoglobin 10.9 L Blood Gas Temperature 37.0 Blood Gas Modality MASK - NRB FiO2 100.0 Blood Gas Notified Whom UP Blood Gas Notified Time 02/04/2017 6:35:02 AM Test 02/04/17 07:38 02/04/17 07:39 02/04/17 08:45 02/04/17 09:31 Lab Scanned Report REFERENCE LAB REFERENCE LAB Blood Gas Specimen Source Blood arterial Arterial Blood Date Drawn 02/04/2017 9:41:18 AM Arterial Blood pH (Temp corrected) 7.429 Arterial Blood pCO2 (Temp correct) 33.7 L Arterial Blood pO2 (Temp corrected) 335.1 H Arterial Blood HCO3 21.8 L Arterial Blood Base Excess -2.0 Arterial Blood Oxygen Saturation 98.9 H George Test ACCEPTAB Arterial Blood Gas Puncture Site Right Radial Arterial Blood Carboxyhemoglobin 0.2 Arterial Blood Methemoglobin 0.4 Blood Gas A-a O2 Differential 344.2 H Oxyhemoglobin Percent 98.3 Total Hemoglobin 10.5 L Blood Gas Temperature 37.0 Blood Gas Respiration Rate 14.0 Blood Gas Actual Respiration Rate 36 Blood Gas Modality VENT - AC FiO2 100.0 Blood Gas Tidal Volume 500.0 Blood Gas Low PEEP Setting 5.0 Blood Gas Notified Whom TM Blood Gas Notified Time 02/04/2017 9:49:57 AM Bedside Glucose 150 Medications Current Medications Ondansetron HCl (Zofran Inj) 4 mg Q6H PRN IV NAUSEA AND/OR VOMITING; Start 01/17 at 14:30 Morphine Sulfate (morphine) 2 mg Q4H PRN IV SEVERE PAIN LEVEL 7-10 Last administered on 01/31/17 07:22; Admin Dose 2 MG; Start 01/17/17 at 14:30 Docusate Sodium (Colace) 100 mg Q12H PRN PO CONSTIPATION; Start 01/17/17 at 14: 30 Febuxostat (Uloric) 40 mg DAILY PO Last administered on 02/04/17 09:07; Admin Dose 40 MG; Start 01/18/17 at 09:00 Diphenhydramine HCl (Benadryl) 25 mg Q4H PRN IV CHILLS; Start 01/17/17 at 18:30 Nicotine 1 patch 1 patch DAILY TRANSDERM Last administered on 02/04/17 09:07; Admin Dose 1 PATCH; Start 01/18/17 at 10:30 Acetaminophen (Ofirmev 1000mg/ 100ml Iv) 100 ml @ 400 mls/hr Q4 PRN IVPB FEVER GREATER THAN 100.6 Last administered on 01/23/17 14:09; Admin Dose 400 MLS /HR; Start 01/19/17 at 00:30 Hydralazine HCl (Apresoline) 10 mg Q4H PRN IV hypertension Last administered on 01/27/17 22:20; Admin Dose 10 MG; Start 01/19/17 at 01:00 Miscellaneous Information 1 ea NOTE XX ; Start 01/19/17 at 09:00 Glucose (Glutose) 15 gm Q15M PRN PO DECREASED GLUCOSE; Start 01/19/17 at 09:00 Glucose (Glutose) 22.5 gm Q15M PRN PO DECREASED GLUCOSE; Start 01/19/17 at 09:00 Dextrose (D50w Syringe) 25 ml Q15M PRN IV DECREASED GLUCOSE; Start 01/19/17 at 09:00 Dextrose (D50w Syringe) 50 ml Q15M PRN IV DECREASED GLUCOSE; Start 01/19/17 at 09:00 Glucagon (Glucagen) 1 mg Q15M PRN IM DECREASED GLUCOSE; Start 01/19/17 at 09:00 Glucose (Glutose) 15 gm Q15M PRN BUCCAL DECREASED GLUCOSE; Start 01/19/17 at 09: 00 IV Flush (NS 10 ml) 10 ml PRN PRN IV FLUSH LINE; Start 01/19/17 at 12:00 Diphenhydramine HCl (Benadryl Liquid Cup) 25 mg QHS PRN NGT ITCHING; Start 01/19 at 21:00 Hydralazine HCl (Apresoline) 25 mg Q4H PRN NGT hypertension Last administered on 01/25/17 12:17; Admin Dose 25 MG; Start 01/19/17 at 20:30 Acetaminophen/ Hydrocodone Bitart ([place] (5/325)) 1 tab Q6H PRN NGT MODERATE PAIN LEVEL 4-6; Start 01/20/17 at 02:30 Magnesium Hydroxide (Milk Of Mag) 30 ml DAILY PRN NGT CONSTIPATION; Start at 20:30 Acetaminophen (Tylenol Liquid) 1,000 mg Q4H PRN NGT PAIN AND OR ELEVATED TEMP; Start 01/19/17 at 20:30; Status Future Hold Docusate Sodium (Colace Liquid Cup) 100 mg TID NGT Last administered on 13:59; Admin Dose 100 MG; Start 01/19/17 at 21:00 Lorazepam (Ativan) 2 mg Q6H PRN IV before LP and MRI Last administered on 11:28; Admin Dose 2 MG; Start 01/20/17 at 00:00 Lansoprazole 30 mg 30 mg DAILY@06 NGT Last administered on 02/04/17 05:08; Admin Dose 30 MG; Start 01/21/17 at 06:00 Norepinephrine/ Dextrose (Levophed/D5W) 500 ml @ 1.87 mls/hr TITRATE IV ; Start 01/20/17 at 17:30 Heparin Sodium (Porcine) (Heparin (5000 Units/0.5 ml)) 5,000 unit BID SC Last administered on 02/04/17 09:09; Admin Dose 5,000 UNIT; Start 01/24/17 at 21:00 Hydralazine HCl (Apresoline) 50 mg TID NGT Last administered on 02/03/17 20:31 ; Admin Dose 50 MG; Start 01/26/17 at 21:00 Diagnostic Test (Pha) (Accu-Chek) 1 ea 02 XX ; Start 02/01/17 at 02:00 Insulin Aspart (Novolog Insulin Pen) NOVOLOG *MODERATE* ALGORI... Q4 SC Last administered on 02/04/17 09:36; Admin Dose 2 UNIT; Start 01/31/17 at 21:00 Epoetin Efrain (Epogen (Neserd)) 6,000 units MoWeFr@17 SC Last administered on 18:33; Admin Dose 6,000 UNITS; Start 02/01/17 at 17:00 Senna (Senokot) 1 tab BID PRN PO CONSTIPATION; Start 02/01/17 at 17:00 Polyethylene Glycol (Miralax) 17 gm DAILY PO Last administered on 02/02/17 10: 09; Admin Dose 17 GM; Start 02/02/17 at 09:00 Atropine Sulfate (Atropine (Syringe)) 1 mg PRN PRN IV DECREASED HEART RATE; Start 02/02/17 at 02:00 Dexamethasone 4 mg 4 mg DAILY IV Last administered on 02/04/17 09:07; Admin Dose 4 MG; Start 02/04/17 at 09:00 Dextrose 1,000 ml @ 50 mls/hr Q20H IV Last administered on 02/04/17 09:02; Admin Dose 50 MLS/HR; Start 02/04/17 at 08:00 Propofol 100 ml @ 2.295 mls/ hr Q12H IV Last administered on 02/04/17 09:03; Admin Dose 2.295 MLS/HR; Start 02/04/17 at 08:30 Phenylephrine HCl/ Dextrose (Cedrick-Syneph/D5W) 500 ml @ 75 mls/hr TITRATE IV Last administered on 02/04/17 09:52; Admin Dose 30 MLS/HR; Start 02/04/17 at 09 :00 Assessment/Plan Chief Complaint/Hosp Course IMPRESSION: 1. Hypoxemic respiratory failure requiring reintubation 2. 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 3. Renal insufficiency 4. Hx Lung Ca 5. Abbi granulomatosis. 6. Aspiration risk PLAN: 1. Patient unable to protect airway secretions. Will likely need tracheostomy and PEG tube. 2. Supportive care for West Nile virus 3. ID recs 4. DVT and GI prophylaxis. Consider transfer to telemetry Problems: CARLO DÍAZ MD, [facility] Feb 04, 2017 11:20
[2017-02-04] MEDS: ACETAMINOPHEN 1000MG/100ML IV 100 ML IVPB PRN (12:00)
--- NOTE | 2017-02-04 13:07 | CONS ---
Date/Time of Note Date/Time of Note DATE: 02/04/17 TIME: 13:06 Consult Date/Type/Reason Admit Date/Time Jan 17, 2017 at 17:33 Type of Consultation: Rheum Subjective Patient was extubated on 02/02 and then had respiratory distress this am that required re-intubation. Remains HD dependent. Objective Vital Signs Date Time Temp Pulse Resp B/P Pulse Ox O2 Delivery O2 Flow Rate FiO2 02/04/17 12:30 89 29 91/69 100 Mechanical Ventilator 02/04/17 12:00 100.2 02/04/17 08:10 100 02/04/17 05:14 3.0 Intake and Output 02/03/17 02/03/17 02/04/17 15:00 23:00 07:00 Intake Total 60 ml 210 ml 460 ml Output Total 495 ml 370 ml 366 ml Balance -435 ml -160 ml 94 ml Exam GENERAL: Intubated, Sedated SKIN: Multiple echymoses throughout- HEENT: ET Tube in place NECK: No lymphadenopathy. HEART: S1, S2. Regular rate and rhythm. LUNGS: Clear bilaterally to auscultation. ABDOMEN: Distended. EXTREMITIES: No cyanosis, no edema. MUSCULOSKELETAL: No synovitis Results/Medications Result Diagram: 02/04/17 0400 02/04/17 0400 Results 24 hrs Laboratory Tests Test 02/03/17 14:00 02/03/17 17:13 02/03/17 19:18 02/03/17 20:30 Bedside Glucose 146 165 205 185 Test 02/04/17 02:05 02/04/17 04:00 02/04/17 04:59 02/04/17 06:19 Bedside Glucose 185 150 White Blood Count 17.6 H Red Blood Count 3.33 L Hemoglobin 9.5 L Hematocrit 29.4 L Mean Corpuscular Volume 88.3 Mean Corpuscular Hemoglobin 28.5 L Mean Corpuscular Hemoglobin Concent 32.3 Red Cell Distribution Width 21.6 H Platelet Count 91 L Mean Platelet Volume Neutrophils % 89.2 H Lymphocytes % 2.2 L Monocytes % 7.4 Eosinophils % 0.0 Basophils % 0.1 Nucleated Red Blood Cells % 2.8 H Neutrophils # 15.7 H Lymphocytes # 0.4 L Monocytes # 1.3 H Eosinophils # 0.0 Basophils # 0.0 Nucleated Red Blood Cells # 0.5 H Sodium Level 151 H Potassium Level 3.7 Chloride Level 115 H Carbon Dioxide Level 25 Anion Gap 15 Blood Urea Nitrogen 119 #H Creatinine 2.89 H Glucose Level 152 Calcium Level 8.6 Phosphorus Level 6.3 H Magnesium Level 3.0 H Blood Gas Specimen Source Blood arterial Arterial Blood Date Drawn 02/04/2017 6:20:17 AM Arterial Blood pH (Temp corrected) 7.465 H Arterial Blood pCO2 (Temp correct) 31.0 L Arterial Blood pO2 (Temp corrected) 56.2 L Arterial Blood HCO3 21.8 L Arterial Blood Base Excess -1.3 Arterial Blood Oxygen Saturation 87.3 L George Test ACCEPTAB Arterial Blood Gas Puncture Site Right Radial Arterial Blood Carboxyhemoglobin 0.3 Arterial Blood Methemoglobin 0.4 Blood Gas A-a O2 Differential 625.8 H Oxyhemoglobin Percent 86.7 L Total Hemoglobin 10.9 L Blood Gas Temperature 37.0 Blood Gas Modality MASK - NRB FiO2 100.0 Blood Gas Notified Whom UP Blood Gas Notified Time 02/04/2017 6:35:02 AM Test 02/04/17 07:38 02/04/17 07:39 02/04/17 08:45 02/04/17 09:31 Lab Scanned Report REFERENCE LAB REFERENCE LAB Blood Gas Specimen Source Blood arterial Arterial Blood Date Drawn 02/04/2017 9:41:18 AM Arterial Blood pH (Temp corrected) 7.429 Arterial Blood pCO2 (Temp correct) 33.7 L Arterial Blood pO2 (Temp corrected) 335.1 H Arterial Blood HCO3 21.8 L Arterial Blood Base Excess -2.0 Arterial Blood Oxygen Saturation 98.9 H George Test ACCEPTAB Arterial Blood Gas Puncture Site Right Radial Arterial Blood Carboxyhemoglobin 0.2 Arterial Blood Methemoglobin 0.4 Blood Gas A-a O2 Differential 344.2 H Oxyhemoglobin Percent 98.3 Total Hemoglobin 10.5 L Blood Gas Temperature 37.0 Blood Gas Respiration Rate 14.0 Blood Gas Actual Respiration Rate 36 Blood Gas Modality VENT - AC FiO2 100.0 Blood Gas Tidal Volume 500.0 Blood Gas Low PEEP Setting 5.0 Blood Gas Notified Whom TM Blood Gas Notified Time 02/04/2017 9:49:57 AM Bedside Glucose 150 Test 02/04/17 12:17 Bedside Glucose 192 Medications Current Medications Ondansetron HCl (Zofran Inj) 4 mg Q6H PRN IV NAUSEA AND/OR VOMITING; Start 01/17 at 14:30 Morphine Sulfate (morphine) 2 mg Q4H PRN IV SEVERE PAIN LEVEL 7-10 Last administered on 01/31/17 07:22; Admin Dose 2 MG; Start 01/17/17 at 14:30 Docusate Sodium (Colace) 100 mg Q12H PRN PO CONSTIPATION; Start 01/17/17 at 14: 30 Febuxostat (Uloric) 40 mg DAILY PO Last administered on 02/04/17 09:07; Admin Dose 40 MG; Start 01/18/17 at 09:00 Diphenhydramine HCl (Benadryl) 25 mg Q4H PRN IV CHILLS; Start 01/17/17 at 18:30 Nicotine 1 patch 1 patch DAILY TRANSDERM Last administered on 02/04/17 09:07; Admin Dose 1 PATCH; Start 01/18/17 at 10:30 Acetaminophen (Ofirmev 1000mg/ 100ml Iv) 100 ml @ 400 mls/hr Q4 PRN IVPB FEVER GREATER THAN 100.6 Last administered on 01/23/17 14:09; Admin Dose 400 MLS /HR; Start 01/19/17 at 00:30 Hydralazine HCl (Apresoline) 10 mg Q4H PRN IV hypertension Last administered on 01/27/17 22:20; Admin Dose 10 MG; Start 01/19/17 at 01:00 Miscellaneous Information 1 ea NOTE XX ; Start 01/19/17 at 09:00 Glucose (Glutose) 15 gm Q15M PRN PO DECREASED GLUCOSE; Start 01/19/17 at 09:00 Glucose (Glutose) 22.5 gm Q15M PRN PO DECREASED GLUCOSE; Start 01/19/17 at 09:00 Dextrose (D50w Syringe) 25 ml Q15M PRN IV DECREASED GLUCOSE; Start 01/19/17 at 09:00 Dextrose (D50w Syringe) 50 ml Q15M PRN IV DECREASED GLUCOSE; Start 01/19/17 at 09:00 Glucagon (Glucagen) 1 mg Q15M PRN IM DECREASED GLUCOSE; Start 01/19/17 at 09:00 Glucose (Glutose) 15 gm Q15M PRN BUCCAL DECREASED GLUCOSE; Start 01/19/17 at 09: 00 IV Flush (NS 10 ml) 10 ml PRN PRN IV FLUSH LINE; Start 01/19/17 at 12:00 Diphenhydramine HCl (Benadryl Liquid Cup) 25 mg QHS PRN NGT ITCHING; Start 01/19 at 21:00 Hydralazine HCl (Apresoline) 25 mg Q4H PRN NGT hypertension Last administered on 01/25/17 12:17; Admin Dose 25 MG; Start 01/19/17 at 20:30 Acetaminophen/ Hydrocodone Bitart ([place] (5/325)) 1 tab Q6H PRN NGT MODERATE PAIN LEVEL 4-6; Start 01/20/17 at 02:30 Magnesium Hydroxide (Milk Of Mag) 30 ml DAILY PRN NGT CONSTIPATION; Start at 20:30 Acetaminophen (Tylenol Liquid) 1,000 mg Q4H PRN NGT PAIN AND OR ELEVATED TEMP; Start 01/19/17 at 20:30; Status Future Hold Docusate Sodium (Colace Liquid Cup) 100 mg TID NGT Last administered on 13:59; Admin Dose 100 MG; Start 01/19/17 at 21:00 Lorazepam (Ativan) 2 mg Q6H PRN IV before LP and MRI Last administered on 11:28; Admin Dose 2 MG; Start 01/20/17 at 00:00 Lansoprazole 30 mg 30 mg DAILY@06 NGT Last administered on 02/04/17 05:08; Admin Dose 30 MG; Start 01/21/17 at 06:00 Norepinephrine/ Dextrose (Levophed/D5W) 500 ml @ 1.87 mls/hr TITRATE IV ; Start 01/20/17 at 17:30 Heparin Sodium (Porcine) (Heparin (5000 Units/0.5 ml)) 5,000 unit BID SC Last administered on 02/04/17 09:09; Admin Dose 5,000 UNIT; Start 01/24/17 at 21:00 Hydralazine HCl (Apresoline) 50 mg TID NGT Last administered on 02/03/17 20:31 ; Admin Dose 50 MG; Start 01/26/17 at 21:00 Diagnostic Test (Pha) (Accu-Chek) 1 ea 02 XX ; Start 02/01/17 at 02:00 Insulin Aspart (Novolog Insulin Pen) NOVOLOG *MODERATE* ALGORI... Q4 SC Last administered on 02/04/17 12:18; Admin Dose 4 UNIT; Start 01/31/17 at 21:00 Epoetin Efrain (Epogen (Neserd)) 6,000 units MoWeFr@17 SC Last administered on 18:33; Admin Dose 6,000 UNITS; Start 02/01/17 at 17:00 Senna (Senokot) 1 tab BID PRN PO CONSTIPATION; Start 02/01/17 at 17:00 Polyethylene Glycol (Miralax) 17 gm DAILY PO Last administered on 02/02/17 10: 09; Admin Dose 17 GM; Start 02/02/17 at 09:00 Atropine Sulfate (Atropine (Syringe)) 1 mg PRN PRN IV DECREASED HEART RATE; Start 02/02/17 at 02:00 Dexamethasone 4 mg 4 mg DAILY IV Last administered on 02/04/17 09:07; Admin Dose 4 MG; Start 02/04/17 at 09:00 Dextrose 1,000 ml @ 50 mls/hr Q20H IV Last administered on 02/04/17 09:02; Admin Dose 50 MLS/HR; Start 02/04/17 at 08:00 Propofol 100 ml @ 2.295 mls/ hr Q12H IV Last administered on 02/04/17 09:03; Admin Dose 2.295 MLS/HR; Start 02/04/17 at 08:30 Phenylephrine HCl/ Dextrose (Cedrick-Syneph/D5W) 500 ml @ 75 mls/hr TITRATE IV Last administered on 02/04/17 09:52; Admin Dose 30 MLS/HR; Start 02/04/17 at 09 :00 Assessment/Plan Chief Complaint/Hosp Course IMPRESSION AND PLAN: 66-year-old male with history of hypertension, adenocarcinoma of the lung, gout and Abbi's 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 1. Respiratory failure- most likely central in Etiology. Now MRI shows cerebellar encephalitis- now more alert. Plan on eventual weaning off ventilator 2) Jc's Patient is on Rituxan which is an immunosuppressant and this puts him at risk for opportunistic infections. Also his Abbi's has been very well controlled since his diagnosis, he has never had a flare, he has never been hospitalized, with Cytoxan and now Rituxan, I feel like it is unlikely that it would be a Abbi's flare. 4 History of gout. Uric acid levels are low. There is no joint swelling. No joint pain. 5 Acute on Chronic kidney disease, likely secondary to infection. Now getting HD I Problems: SHIRLEY MORALES MD Feb 04, 2017 13:07
[2017-02-04] MEDS ORDERED: VANCOMYCIN IV PER PHARMACY XX SCH (14:00)
[2017-02-04] MEDS ORDERED: MEROPENEM 500MG/50 ML (PMX) 50 ML IVPB SCH (16:00)
[2017-02-04] MEDS ORDERED: VANCOMYCIN 1.5 GM in SOD CHLORIDE 0.9% 250 ML IVPB ONE (17:00)
--- NOTE | 2017-02-04 17:06 | PN ---
DATE: 02/04/2017 SUBJECTIVE DATA: Patient was intubated this morning, currently on Cedrick-Synephrine drip with a temperature of 100.2, pulse 99, respirations 29, blood pressure 91/69, saturation 100 on vent. LABORATORY AND DIAGNOSTIC DATA: WBC 17.6. H and H 9.5 and 29.4, platelets 91,000, neutrophils 89.2, BUN 119, creatinine 2.89. Chest x-ray revealed scattered atelectasis in bilateral lower lobes. INDWELLINGS: Endotracheal tube, NG tube, left upper extremity PICC line, femoral Jesus Manuel catheter, Darden catheter. PHYSICAL EXAMINATION: GENERAL: This is a fragile elderly man who is intubated, sedated, in no distress. HEENT: Head atraumatic, normocephalic. Sclerae anicteric. Buccal mucosa dry. NECK: Supple. CHEST: Rise symmetrical. Breath sounds diminished at the bases. HEART: S1, S2. ABDOMEN: Soft, bowel sounds present. EXTREMITIES: With trace edema, dependent. ASSESSMENT: 1. Shock, possibly septic given low grade fevers. Rule out aspiration event. 2. Acute respiratory failure. 3. 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 4. History of Abbi's granulomatosis. 5. Acute on chronic kidney disease, on hemodialysis. PLAN: We are going to repeat cultures. We are going to start patient on broad-spectrum antibiotics with vancomycin and meropenem. Continue vent management as per Pulmonary. Continue supportive care. Dictated By: Giancarlo Hodges NP /[email or web address] /Document#: [id number]
--- NOTE | 2017-02-04 17:06 | CONS ---
Date/Time of Note Date/Time of Note DATE: 02/04/17 TIME: 16:56 Consult Date/Type/Reason Admit Date/Time Jan 17, 2017 at 17:33 Type of Consultation: neurology Subjective Became unable to tolerate secretions in AM.Resp distress in AM, failed BiPap, had to be reintubated, low BP 70/50's at that time and mid day, pressors prn. Now propofol 30 Objective Vital Signs Date Time Temp Pulse Resp B/P Pulse Ox O2 Delivery O2 Flow Rate FiO2 02/04/17 16:00 89 02/04/17 15:30 27 125/77 97 Mechanical Ventilator 02/04/17 13:00 99.1 02/04/17 08:10 100 02/04/17 05:14 3.0 Intake and Output 02/03/17 02/03/17 02/04/17 15:00 23:00 07:00 Intake Total 60 ml 210 ml 460 ml Output Total 495 ml 370 ml 366 ml Balance -435 ml -160 ml 94 ml Exam NEUROLOGIC: Patient is sedated, unresponsive to voice Does not open eyes, no response to visual threat bilaterally. Pupils about 2 mm sluggish. Extraocular movements intact, occasional slow horizontal movements spontaneously, . Corneal reflexes present bilaterally, brisker on the right. Gags Motor strength examination bilateral UE pronation posturing to pain, more so on the left Flaccid. No movements BLE Deep tendon reflexes, 2+ upper extremities, none LE. No response to plantar stimulation bilaterally. Results/Medications Result Diagram: 02/04/17 0400 02/04/17 0400 Results 24 hrs Laboratory Tests Test 02/03/17 17:13 02/03/17 19:18 02/03/17 20:30 02/04/17 02:05 Bedside Glucose 165 205 185 185 Test 02/04/17 04:00 02/04/17 04:59 02/04/17 06:19 02/04/17 07:38 White Blood Count 17.6 H Red Blood Count 3.33 L Hemoglobin 9.5 L Hematocrit 29.4 L Mean Corpuscular Volume 88.3 Mean Corpuscular Hemoglobin 28.5 L Mean Corpuscular Hemoglobin Concent 32.3 Red Cell Distribution Width 21.6 H Platelet Count 91 L Mean Platelet Volume Neutrophils % 89.2 H Lymphocytes % 2.2 L Monocytes % 7.4 Eosinophils % 0.0 Basophils % 0.1 Nucleated Red Blood Cells % 2.8 H Neutrophils # 15.7 H Lymphocytes # 0.4 L Monocytes # 1.3 H Eosinophils # 0.0 Basophils # 0.0 Nucleated Red Blood Cells # 0.5 H Sodium Level 151 H Potassium Level 3.7 Chloride Level 115 H Carbon Dioxide Level 25 Anion Gap 15 Blood Urea Nitrogen 119 #H Creatinine 2.89 H Glucose Level 152 Calcium Level 8.6 Phosphorus Level 6.3 H Magnesium Level 3.0 H Bedside Glucose 150 Blood Gas Specimen Source Blood arterial Arterial Blood Date Drawn 02/04/2017 6:20:17 AM Arterial Blood pH (Temp corrected) 7.465 H Arterial Blood pCO2 (Temp correct) 31.0 L Arterial Blood pO2 (Temp corrected) 56.2 L Arterial Blood HCO3 21.8 L Arterial Blood Base Excess -1.3 Arterial Blood Oxygen Saturation 87.3 L George Test ACCEPTAB Arterial Blood Gas Puncture Site Right Radial Arterial Blood Carboxyhemoglobin 0.3 Arterial Blood Methemoglobin 0.4 Blood Gas A-a O2 Differential 625.8 H Oxyhemoglobin Percent 86.7 L Total Hemoglobin 10.9 L Blood Gas Temperature 37.0 Blood Gas Modality MASK - NRB FiO2 100.0 Blood Gas Notified Whom UP Blood Gas Notified Time 02/04/2017 6:35:02 AM Lab Scanned Report REFERENCE LAB Test 02/04/17 07:39 02/04/17 08:45 02/04/17 09:31 02/04/17 12:17 Lab Scanned Report REFERENCE LAB Blood Gas Specimen Source Blood arterial Arterial Blood Date Drawn 02/04/2017 9:41:18 AM Arterial Blood pH (Temp corrected) 7.429 Arterial Blood pCO2 (Temp correct) 33.7 L Arterial Blood pO2 (Temp corrected) 335.1 H Arterial Blood HCO3 21.8 L Arterial Blood Base Excess -2.0 Arterial Blood Oxygen Saturation 98.9 H George Test ACCEPTAB Arterial Blood Gas Puncture Site Right Radial Arterial Blood Carboxyhemoglobin 0.2 Arterial Blood Methemoglobin 0.4 Blood Gas A-a O2 Differential 344.2 H Oxyhemoglobin Percent 98.3 Total Hemoglobin 10.5 L Blood Gas Temperature 37.0 Blood Gas Respiration Rate 14.0 Blood Gas Actual Respiration Rate 36 Blood Gas Modality VENT - AC FiO2 100.0 Blood Gas Tidal Volume 500.0 Blood Gas Low PEEP Setting 5.0 Blood Gas Notified Whom TM Blood Gas Notified Time 02/04/2017 9:49:57 AM Bedside Glucose 150 192 Medications Current Medications Ondansetron HCl (Zofran Inj) 4 mg Q6H PRN IV NAUSEA AND/OR VOMITING; Start 01/17 at 14:30 Morphine Sulfate (morphine) 2 mg Q4H PRN IV SEVERE PAIN LEVEL 7-10 Last administered on 01/31/17 07:22; Admin Dose 2 MG; Start 01/17/17 at 14:30 Docusate Sodium (Colace) 100 mg Q12H PRN PO CONSTIPATION; Start 01/17/17 at 14: 30 Febuxostat (Uloric) 40 mg DAILY PO Last administered on 02/04/17 09:07; Admin Dose 40 MG; Start 01/18/17 at 09:00 Diphenhydramine HCl (Benadryl) 25 mg Q4H PRN IV CHILLS; Start 01/17/17 at 18:30 Nicotine 1 patch 1 patch DAILY TRANSDERM Last administered on 02/04/17 09:07; Admin Dose 1 PATCH; Start 01/18/17 at 10:30 Acetaminophen (Ofirmev 1000mg/ 100ml Iv) 100 ml @ 400 mls/hr Q4 PRN IVPB FEVER GREATER THAN 100.6 Last administered on 01/23/17 14:09; Admin Dose 400 MLS /HR; Start 01/19/17 at 00:30 Hydralazine HCl (Apresoline) 10 mg Q4H PRN IV hypertension Last administered on 01/27/17 22:20; Admin Dose 10 MG; Start 01/19/17 at 01:00 Miscellaneous Information 1 ea NOTE XX ; Start 01/19/17 at 09:00 Glucose (Glutose) 15 gm Q15M PRN PO DECREASED GLUCOSE; Start 01/19/17 at 09:00 Glucose (Glutose) 22.5 gm Q15M PRN PO DECREASED GLUCOSE; Start 01/19/17 at 09:00 Dextrose (D50w Syringe) 25 ml Q15M PRN IV DECREASED GLUCOSE; Start 01/19/17 at 09:00 Dextrose (D50w Syringe) 50 ml Q15M PRN IV DECREASED GLUCOSE; Start 01/19/17 at 09:00 Glucagon (Glucagen) 1 mg Q15M PRN IM DECREASED GLUCOSE; Start 01/19/17 at 09:00 Glucose (Glutose) 15 gm Q15M PRN BUCCAL DECREASED GLUCOSE; Start 01/19/17 at 09: 00 IV Flush (NS 10 ml) 10 ml PRN PRN IV FLUSH LINE; Start 01/19/17 at 12:00 Diphenhydramine HCl (Benadryl Liquid Cup) 25 mg QHS PRN NGT ITCHING; Start 01/19 at 21:00 Hydralazine HCl (Apresoline) 25 mg Q4H PRN NGT hypertension Last administered on 01/25/17 12:17; Admin Dose 25 MG; Start 01/19/17 at 20:30 Acetaminophen/ Hydrocodone Bitart ([place] (5/325)) 1 tab Q6H PRN NGT MODERATE PAIN LEVEL 4-6; Start 01/20/17 at 02:30 Magnesium Hydroxide (Milk Of Mag) 30 ml DAILY PRN NGT CONSTIPATION; Start at 20:30 Acetaminophen (Tylenol Liquid) 1,000 mg Q4H PRN NGT PAIN AND OR ELEVATED TEMP; Start 01/19/17 at 20:30; Status Future Hold Docusate Sodium (Colace Liquid Cup) 100 mg TID NGT Last administered on 13:59; Admin Dose 100 MG; Start 01/19/17 at 21:00 Lorazepam (Ativan) 2 mg Q6H PRN IV before LP and MRI Last administered on 11:28; Admin Dose 2 MG; Start 01/20/17 at 00:00 Lansoprazole 30 mg 30 mg DAILY@06 NGT Last administered on 02/04/17 05:08; Admin Dose 30 MG; Start 01/21/17 at 06:00 Norepinephrine/ Dextrose (Levophed/D5W) 500 ml @ 1.87 mls/hr TITRATE IV ; Start 01/20/17 at 17:30 Heparin Sodium (Porcine) (Heparin (5000 Units/0.5 ml)) 5,000 unit BID SC Last administered on 02/04/17 09:09; Admin Dose 5,000 UNIT; Start 01/24/17 at 21:00 Hydralazine HCl (Apresoline) 50 mg TID NGT Last administered on 9/20/17at 20:31 ; Admin Dose 50 MG; Start 01/26/17 at 21:00 Diagnostic Test (Pha) (Accu-Chek) 1 ea 02 XX ; Start 02/01/17 at 02:00 Insulin Aspart (Novolog Insulin Pen) NOVOLOG *MODERATE* ALGORI... Q4 SC Last administered on 02/04/17 12:18; Admin Dose 4 UNIT; Start 01/31/17 at 21:00 Epoetin Efrain (Epogen (Neserd)) 6,000 units MoWeFr@17 SC Last administered on 18:33; Admin Dose 6,000 UNITS; Start 02/01/17 at 17:00 Senna (Senokot) 1 tab BID PRN PO CONSTIPATION; Start 02/01/17 at 17:00 Polyethylene Glycol (Miralax) 17 gm DAILY PO Last administered on 02/02/17 10: 09; Admin Dose 17 GM; Start 02/02/17 at 09:00 Atropine Sulfate (Atropine (Syringe)) 1 mg PRN PRN IV DECREASED HEART RATE; Start 02/02/17 at 02:00 Dexamethasone 4 mg 4 mg DAILY IV Last administered on 02/04/17 09:07; Admin Dose 4 MG; Start 02/04/17 at 09:00 Dextrose 1,000 ml @ 50 mls/hr Q20H IV Last administered on 02/04/17 09:02; Admin Dose 50 MLS/HR; Start 02/04/17 at 08:00 Propofol 100 ml @ 2.295 mls/ hr Q12H IV Last administered on 02/04/17 15:39; Admin Dose 16.065 MLS/HR; Start 02/04/17 at 08:30 Phenylephrine HCl 40 mg/Dextrose 500 ml @ 75 mls/hr TITRATE IV Last administered on 02/04/17 16:24; Admin Dose 135 MLS/HR; Start 02/04/17 at 09:00 Meropenem/Sodium Chloride 50 ml @ 100 mls/hr Q24H IVPB ; Start 02/05/17 at 17: 00 Vancomycin HCl/ Sodium Chloride (Vancocin/NS) 250 ml @ 83.333 mls/ hr ONCE ONCE IVPB ; Start 02/04/17 at 17:00; Stop 02/04/17 at 19:59 Assessment/Plan Chief Complaint/Hosp Course IMPRESSION: 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 Worsened in AM, problems with managing secretions, had to be reintubated. Now decerebrate posturing in UE, mostly LUE. To r/o new structural abnormality ?? CVA I'll repeat CT head Problems: LALO MONACO MD Feb 04, 2017 17:05
--- NOTE | 2017-02-04 18:10 | RADRPT ---
PROCEDURE: CT head without intravenous contrast CLINICAL INDICATION: Altered mental status. Concern for infarction or intracranial hemorrhage. COMPARISON: CT from 02/02/2017. MRI from 01/28/2017. TECHNIQUE: Axial CT images from skull base to vertex with coronal and sagittal reformats. DOSE: The estimated administered radiation dose was CTDI vol = 44 mGy. DLP = 720 mGy-cm. One or mor e of the following dose reduction techniques were used: automated exposure control, adjustment of th e mA and/or kV according to patient size, or use of iterative reconstruction. FINDINGS: Limitations: Motion degrades image quality. Parenchyma: No acute hemorrhage, large territorial infarction, or mass. Mild periventricular white m atter hypodensity, a nonspecific finding. Ventricles: No ventriculomegaly or ventricular effacement. Extra-axial spaces: No herniation or midline shift. Paranasal sinuses: Fluid and secretions layer within the paranasal sinuses, nasal cavity, and nasoph arynx. Mastoids and middle ears: Bilateral mastoid middle ear effusions. Visualized orbits: Normal. Vessels: No calcified atherosclerotic arterial plaque identified. Bones: Normal. Extracranial soft tissues: Normal. Additional comment: None. IMPRESSION: 1. Motion degraded examination without acute hemorrhage or large territorial infarction. 2. Fluid layers within the paranasal sinuses, nasal cavity, nasopharynx, and mastoid air cells. RPTAT: AA Physician Kerline Date Time Electronically viewed and signed by Physician Kerline on 02/04/2017 18:10 LG/
--- NOTE | 2017-02-04 22:19 | RADRPT ---
PROCEDURE: XR Chest. CLINICAL INDICATION: Enteric and endotracheal tube placement follow-up TECHNIQUE: AP Portable chest. COMPARISON: 02/04/2017 08:50 a.m. chest x-ray FINDINGS: The soft tissues and bones are remarkable for an endotracheal tube 4.9 cm above the carmen. The ente erika tube is noted to have been advanced into the stomach and the tip is not imaged. A left PICC cath eter is present tip in the superior vena cava /right atrial junction. No focal infiltrates, masses, or effusions are noted. The mediastinum and heart are remarkable for mild vascular calcifications of the thoracic aorta. Hyperinflation is present and correlate with COPD. No pneumothorax is present . IMPRESSION: 1. Tubes and lines as indicated above without pneumothorax. 2. Hyperinflation and correlate with COPD and no evidence for acute cardiopulmonary disease 3. Mild atherosclerotic vascular disease RPTAT: HDC .Macy Espinal MD, Date Time Electronically viewed and signed by .Macy Espinal MD, on 02/04/2017 22:18 .C/
--- NOTE | 2017-02-04 23:42 | PN ---
DATE: 02/04/2017 SUBJECTIVE DATA: Patient unfortunately was reintubated this morning, as he was noted to be in respiratory distress. Despite attempted BiPAP, the patient had to be intubated. Patient thereafter was dialyzed, also was placed on pressors secondary to hypotension. Patient was started also on broad-spectrum antibiotic for possible occult infection. Patient is pending CT scan of the head. Noted ID recommendations regarding treatment for possible aspiration. Noted Neurology recommendations regarding CT scan, as patient has decerebrate posturing. PHYSICAL EXAM: VITAL SIGNS: Temperature 98.7, T-max 100.2 this morning. Pulse 67, respirations 22, blood pressure 135/87, saturation 100 percent on full ventilatory support. GENERAL: Patient is currently sedated on propofol, also Cedrick- Synephrine drip as well. Patient's eyes are closed. Comfortable. HEART: S1 and S2. LUNGS: Mild rhonchi bilaterally. ABDOMEN: Soft, distended. EXTREMITIES: +1 edema throughout. LABS: White count is 17.6, hemoglobin 9.5, hematocrit 29, platelet count is low, at 91, neutrophils 89 percent, eosinophils 2 percent. Chemistry: Sodium 151, potassium 3.7, chloride 115, bicarb 25, BUN is 119, creatinine 2.89. Thereafter, he had 3 L removed by dialysis. Glucose is 152. Last glucoses were 191, 192, and 150. West Nile virus, again IgG and IgM were all positive. SO virus negative. Herpes simplex was negative. MEDICATIONS: Patient's meds reviewed, include: 1. Merrem IV dose daily. 2. Vancomycin IV dose per pharmacy. 3. Decadron 4 mg daily. 4. Propofol as directed. 5. MiraLAX 17 g daily. 6. Atropine p.r.n. 7. Epogen 6000 units every Wednesday, Wednesday, Wednesday. 8. Senna 1 tab p.r.n. 9. Accu-Chek q.a.c. and at bedtime. 10. Hydralazine 50 t.i.d. 11. Heparin 5000 units subcu b.i.d. 12. 30 mg daily. 13. Plover p.r.n. 14. Ativan p.r.n. 15. Benadryl p.r.n. 16. Colace 100 t.i.d. 17. Hydralazine p.r.n. 18. Milk of magnesia p.r.n. 19. Hypoglycemia protocol as directed. 20. Nicotine patch daily. 21. DuoNeb p.r.n. 22. Uloric 40 mg daily. 23. Zofran, morphine, and Colace p.r.n. ASSESSMENT AND PLAN: This is an unfortunate 66-year-old, male, with Abbi granulomatosis, immunocompromised, chronic kidney disease, nicotine dependency, hypertension, who presented initially with fever, chills, generalized weakness and decreased p.o. intake. Unfortunately, with neurological decline, intubated and was diagnosed with West Nile encephalitis/meningitis. 1. Respiratory. Now on full ventilatory support secondary to increased tachypnea, with risk of protecting his airways. Chest x-ray which was done noted no radiographic evidence of acute cardiopulmonary disease. 2. Cardiovascular. Cedrick-Synephrine p.r.n. to keep systolic greater than 90. Observe his blood pressure dropped with dialysis. 3. Acute renal failure on chronic kidney disease. Continue dialysis for now, as patient with multiorgan damage secondary to his viral encephalitis. 4. Encephalopathy from West Nile virus. Continue supportive care. On Decadron for brain edema. Followup CT scan of the brain. 5. Hyperglycemia. Patient was placed on D5. May start low- dose Lantus. 6. Dysphagia. NG tube feeding. 7. Anemia. Monitor H and H. 8. Leukocytosis. Empiric treatment for aspiration pneumonia with imipenem and vancomycin. On treatment for hospital-acquired infection. 9. Continue deep venous thrombosis prophylaxis and gastrointestinal prophylaxis. May need trach and percutaneous endoscopic gastrostomy, if patient does not improve soon. We will follow. Dictated By: Gurwinder Triplett MD /eladio/claribel /Document#: [id number]
[2017-02-05] VITALS (106 sets, daily range): BP systolic 75–153; BP diastolic 52–76; PULSE 53–86; RESP 13–31
[2017-02-05] MEDS: INSULIN ASPART [NOVOLOG] 3 ML PEN SC SCH ×6 (01:00→21:42)
[2017-02-05] MEDS: ACCU-CHEK XX SCH (01:23)
[2017-02-05] MEDS: PROPOFOL 100 ML IV SCH ×4 (02:32→18:45)
[2017-02-05] MEDS: DEXTROSE 5% 1,000 ML IV SCH (04:00)
[2017-02-05] MEDS: LANSOPRAZOLE 30 MG CAP NGT SCH (06:01)
[2017-02-05 06:11] LABS: ABNORMAL IP MESSAGE 1; BASOPHILS % 0.1 % (0.0-2.0); EOSINOPHILS # 0.1 10^3/ul (0.0-0.5); EOSINOPHILS % 0.4 % (0.0-7.0); HEMATOCRIT 26.5 % (42.0-52.0); HEMOGLOBIN 8.2 g/dl (14.0-18.0); LYMPHOCYTES # 0.6 10^3/ul (0.8-2.9); LYMPHOCYTES % 3.5 % (15.0-51.0); MEAN CORPUSCULAR HEMOGLOBIN 27.7 pg (29.0-33.0); MEAN CORPUSCULAR HGB CONC 30.9 g/dl (32.0-37.0); MEAN CORPUSCULAR VOLUME 89.5 fl (82.0-101.0); MONOCYTE # 1.3 10^3/ul (0.3-0.9); MONOCYTES % 7.4 % (0.0-11.0); NEUTROPHIL # 14.8 10^3/ul (1.6-7.5); NEUTROPHILS % 87.9 % (39.0-77.0); NUCLEATED RED BLOOD CELLS # 0.2 10^3/ul (0.0-0.0); NUCLEATED RED BLOOD CELLS% 1.4 /100WBC (0.0-0.0); PLATELET COUNT 99 10^3/UL (140-415); POSITIVE DIFF @See below; RED BLOOD COUNT 2.96 10^6/ul (4.70-6.10); RED CELL DISTRIBUTION WIDTH 21.4 % (11.5-14.5); WHITE BLOOD COUNT 16.8 10^3/ul (4.8-10.8)
[2017-02-05 07:05] LABS: CALCIUM 8.2 mg/dl (8.4-10.2); CREATININE 2.28 mg/dl (0.61-1.24); MAGNESIUM 2.4 mg/dl (1.7-2.5); POTASSIUM 3.7 mmol/L (3.5-5.1)
[2017-02-05 07:18] LABS: ALBUMIN 2.5 g/dl (3.3-4.9); TOTAL PROTEIN 5.3 g/dl (6.1-8.1)
[2017-02-05 08:24] LABS: AADO2 Arterial 194.4 mmHg (7.0-24.0); Allen Test ACCEPTAB; Arterial Base Excess 1.2 mmol/L (-3.0-3); Arterial COHb 0 % (0.0-3.0); Arterial Fraction of Oxyhgb 96.2 % (93.0-99.0); Arterial HCO3 24.5 mmol/L (22.0-26.0); Arterial MetHb 0.3 % (0.0-1.5); Arterial Total Hemglobin 8.6 g/dl (12.0-18.0); MODE VENT - AC
[2017-02-05 08:25] LABS: BILIRUBIN,INDIRECT 0.2 mg/dl (0-1.1); BILIRUBIN,TOTAL 0.2 mg/dl (0.2-1.3)
[2017-02-05] MEDS: NICOTINE (14 MG/24 HR) PATCH TRANSDERM SCH (08:28)
[2017-02-05] MEDS: DOCUSATE SODIUM 10 MG/ML (10ML CUP) NGT SCH ×3 (08:28→21:36)
[2017-02-05] MEDS: FEBUXOSTAT 40 MG TABLET PO SCH (08:28)
[2017-02-05] MEDS: POLYETHYLENE GLYCOL 17 GM PACKET PO SCH (08:28)
[2017-02-05] MEDS: DEXAMETHASONE 4 MG/ML 1 ML INJ IV SCH (08:28)
[2017-02-05] MEDS: HEPARIN 5,000 UNIT/0.5 ML VIAL SC SCH ×2 (08:35→21:37)
[2017-02-05] MEDS: PHENYLephrine 40 MG in DEXTROSE 5% 496 ML IV SCH (08:36)
--- NOTE | 2017-02-05 09:10 | RADRPT ---
PROCEDURE: XR Chest. CLINICAL INDICATION: Shortness of breath. TECHNIQUE: Single frontal view. COMPARISON: 02/04/2017. FINDINGS: The endotracheal tube, nasogastric tube, and left arm PICC line remain in satisfactory position. The lungs are clear. The heart size is normal. There is calcification in the aorta consistent with atherosclerosis. There is no pleural effusion. There is no pneumothorax. IMPRESSION: 1. Tubes and lines in satisfactory position. 2. Atherosclerosis. 3. Clear lungs. RPTAT: QQ .Caden Cerna MD, MD Date Time Electronically viewed and signed by .Caden Cerna MD, MD on 02/05/2017 09:10 .R/
--- NOTE | 2017-02-05 09:28 | PN ---
DATE: 02/05/2017 SUBJECTIVE DATA: Patient is stable, was re-intubated due to respiratory distress. The patient was at hemodialysis with 3 L removed. No other events noted. No hemoptysis, hematemesis, hematochezia. OBJECTIVE DATA: VITAL SIGNS: Blood pressure is 122/72, respirations 22, pulse 69, temperature 98.6. HEENT: Head is normocephalic. NECK: Supple. HEART: Regular rate. LUNGS: Show diminished breath sounds at the base. ABDOMEN: Soft, nontender to palpation. No guarding. EXTREMITIES: Negative for clubbing, cyanosis. No edema. DERMATOLOGIC: Clean. No rashes. MUSCULOSKELETAL: No joint effusion. NEUROLOGIC: No change in exam. MEDICATIONS: Reviewed. LABORATORY AND DIAGNOSTIC DATA: Shows sodium 144, potassium 3.7, chloride 109, BUN 77, creatinine 2.28, phosphorus 6.0. White count is 16.8, hemoglobin 8.2, hematocrit 26.5, platelet count 99,000. The patient's chest x-ray shows COPD. No evidence of cardiopulmonary disease. ASSESSMENT AND PLAN: 1. Nonoliguric acute kidney injury on top of chronic kidney disease with previous baseline creatinine 1.7-2.0 mg/dL. Etiology of acute kidney injury secondary acute tubular necrosis. The patient is currently dialysis dependent, had hemodialysis yesterday, tolerated it well. Plan for dialysis again tomorrow. 2. Hyponatremia, improved. Continue D5 water. 3. Anemia. Monitor hemoglobin and hematocrit levels. 4. Mineral bone disorder. Monitor calcium and phosphorus levels. 5. Hypomagnesemia secondary to acute kidney injury, improved. 6. Ventilatory dependence and failure. Patient was re- intubated due to underlying tachypnea, unable to clear secretions. Continue to monitor. Follow up with Pulmonary. 7. Encephalitis, continue current medical management. Follow up with Neurology. 8. History of Abbi granulomatosis, status post Rituxan. 9. Gastrointestinal and deep venous thrombosis prophylaxis. Dictated By: Jim Sierra DO /eladio/ray /Document#: [id number]
--- NOTE | 2017-02-05 13:48 | PN ---
DATE: 02/05/2017 SUBJECTIVE DATA: No acute changes. Patient remains intubated on Cedrick-Synephrine drip. No fevers. Temperature 99.2, pulse 68, respirations 20, blood pressure 108/58, saturation 100 on 45 FiO2. LABORATORY AND DIAGNOSTIC DATA: WBC 16.8, H and H 8.2 and 26.5, platelets 99, neutrophils 87.9, BUN 77, creatinine 2.28. MICROBIOLOGY: Urine culture repeated yesterday, negative blood. Preliminary blood cultures pending. ANTIMICROBIALS: Patient was started on: 1. Vancomycin. 2. Meropenem. 3. He is also getting Decadron 4 mg daily. DIAGNOSTICS: CT of the brain yesterday revealed motion degraded examination without acute hemorrhage or large territorial infarction. Fluid levels within the paranasal sinuses, nasal cavity, nasopharynx and mastoid air cells. INDWELLING: Endotracheal tube, NG tube, Darden, left upper extremity PICC line placed on January 19, right femoral Jesus Manuel. PHYSICAL EXAMINATION: GENERAL: This is a fragile, well-developed, elderly man, who is intubated, sedated, and in no distress. HEENT: Head atraumatic, normocephalic. Sclerae anicteric. Buccal mucosa dry. NECK: Supple. CHEST: Rise symmetrical. Breath sounds diminished at the bases. HEART: S1, S2. ABDOMEN: Soft, bowel sounds present. EXTREMITIES: With trace dependent edema. ASSESSMENT: 1. Septic shock, possible aspiration. 2. Respiratory failure, status post re- intubated. 3. 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 4. History of Abbi's granulomatosis. 5. Acute on chronic kidney disease, started on hemodialysis on this admission 6. History of gout. 7. Probable acute sinusitis and mastoiditis per radiographic findings. PLAN: The patient remains hemodynamically unstable. He is on broad-spectrum antibiotics. Followed by multiple consultants. Pending blood and sputum cultures. Continue present care. Dictated By: Giancarlo Hodges NP /eladio/eliza /Document#: [id number] LORNE
--- NOTE | 2017-02-05 15:58 | CONS ---
Date/Time of Note Date/Time of Note DATE: 02/05/17 TIME: 15:56 Consult Date/Type/Reason Admit Date/Time Jan 17, 2017 at 17:33 Type of Consultation: Pulm Subjective No new events. Continues mechanical ventilation. Remains agitated. Not following commands. Objective Vital Signs Date Time Temp Pulse Resp B/P Pulse Ox O2 Delivery O2 Flow Rate FiO2 02/05/17 15:47 59 23 100 45 02/05/17 13:00 116/67 Mechanical Ventilator 02/05/17 12:00 97.9 02/04/17 05:14 3.0 Intake and Output 02/04/17 02/04/17 02/05/17 15:00 23:00 07:00 Intake Total 1429.735 ml 2081.655 ml 947.045 ml Output Total 223 ml 3896 ml 490 ml Balance 1206.735 ml -1814.345 ml 457.045 ml Exam GENERAL: Elderly [place] gentleman orally intubated on mechanical ventilation VITAL SIGNS: per chart NECK: Supple. No JVD or lymphadenopathy. CARDIAC EXAM: S1, S2. No added sounds or murmurs. CHEST: clear bilaterally, No added sounds, rales or wheezes ABDOMEN: Soft, nontender. No guarding or rebound. EXTREMITIES: No cyanosis, clubbing or edema. NEUROLOGIC: Generalized weakness. No focal deficits. Results/Medications Result Diagram: 02/05/17 0500 02/05/17 0500 Results 24 hrs Laboratory Tests Test 02/04/17 17:08 02/04/17 21:42 02/05/17 01:23 02/05/17 05:00 Bedside Glucose 191 92 120 White Blood Count 16.8 H Red Blood Count 2.96 L Hemoglobin 8.2 L Hematocrit 26.5 L Mean Corpuscular Volume 89.5 Mean Corpuscular Hemoglobin 27.7 L Mean Corpuscular Hemoglobin Concent 30.9 L Red Cell Distribution Width 21.4 H Platelet Count 99 L Mean Platelet Volume Neutrophils % 87.9 H Lymphocytes % 3.5 L Monocytes % 7.4 Eosinophils % 0.4 Basophils % 0.1 Nucleated Red Blood Cells % 1.4 H Neutrophils # 14.8 H Lymphocytes # 0.6 L Monocytes # 1.3 H Eosinophils # 0.1 Basophils # 0.0 Nucleated Red Blood Cells # 0.2 H Sodium Level 144 Potassium Level 3.7 Chloride Level 109 Carbon Dioxide Level 27 Anion Gap 12 Blood Urea Nitrogen 77 #H Creatinine 2.28 H Glucose Level 114 Lactic Acid Level 1.2 Calcium Level 8.2 L Phosphorus Level 6.0 H Magnesium Level 2.4 Total Bilirubin 0.2 Direct Bilirubin 0.00 Indirect Bilirubin 0.2 Aspartate Amino Transf (AST/SGOT) 46 Alanine Aminotransferase (ALT/SGPT) 80 H Alkaline Phosphatase 124 H Total Protein 5.3 L Albumin 2.5 L Test 02/05/17 05:11 02/05/17 07:00 02/05/17 08:33 02/05/17 12:49 Bedside Glucose 114 120 190 Blood Gas Specimen Source Blood arterial Arterial Blood Date Drawn 02/05/2017 7:35:21 AM Arterial Blood pH (Temp corrected) 7.484 H Arterial Blood pCO2 (Temp correct) 33.3 L Arterial Blood pO2 (Temp corrected) 88.6 Arterial Blood HCO3 24.5 Arterial Blood Base Excess 1.2 Arterial Blood Oxygen Saturation 96.5 George Test ACCEPTAB Arterial Blood Gas Puncture Site Right Radial Arterial Blood Carboxyhemoglobin 0 Arterial Blood Methemoglobin 0.3 Blood Gas A-a O2 Differential 194.4 H Oxyhemoglobin Percent 96.2 Total Hemoglobin 8.6 L Blood Gas Temperature 37.0 Blood Gas Respiration Rate 14.0 Blood Gas Actual Respiration Rate 23 Blood Gas Modality VENT - AC FiO2 45.0 Blood Gas Tidal Volume 500.0 Blood Gas Low PEEP Setting 5.0 Blood Gas Notified Whom CW Blood Gas Notified Time 02/05/2017 8:24:30 AM Medications Current Medications Ondansetron HCl (Zofran Inj) 4 mg Q6H PRN IV NAUSEA AND/OR VOMITING; Start 01/17 at 14:30 Morphine Sulfate (morphine) 2 mg Q4H PRN IV SEVERE PAIN LEVEL 7-10 Last administered on 01/31/17 07:22; Admin Dose 2 MG; Start 01/17/17 at 14:30 Docusate Sodium (Colace) 100 mg Q12H PRN PO CONSTIPATION; Start 01/17/17 at 14: 30 Febuxostat (Uloric) 40 mg DAILY PO Last administered on 02/05/17 08:28; Admin Dose 40 MG; Start 01/18/17 at 09:00 Diphenhydramine HCl (Benadryl) 25 mg Q4H PRN IV CHILLS; Start 01/17/17 at 18:30 Nicotine 1 patch 1 patch DAILY TRANSDERM Last administered on 02/05/17 08:28; Admin Dose 1 PATCH; Start 01/18/17 at 10:30 Acetaminophen (Ofirmev 1000mg/ 100ml Iv) 100 ml @ 400 mls/hr Q4 PRN IVPB FEVER GREATER THAN 100.6 Last administered on 02/04/17 12:00; Admin Dose 400 MLS/HR; Start 01/19/17 at 00:30 Hydralazine HCl (Apresoline) 10 mg Q4H PRN IV hypertension Last administered on 01/27/17 22:20; Admin Dose 10 MG; Start 01/19/17 at 01:00 Miscellaneous Information 1 ea NOTE XX ; Start 01/19/17 at 09:00 Glucose (Glutose) 15 gm Q15M PRN PO DECREASED GLUCOSE; Start 01/19/17 at 09:00 Glucose (Glutose) 22.5 gm Q15M PRN PO DECREASED GLUCOSE; Start 01/19/17 at 09:00 Dextrose (D50w Syringe) 25 ml Q15M PRN IV DECREASED GLUCOSE; Start 01/19/17 at 09:00 Dextrose (D50w Syringe) 50 ml Q15M PRN IV DECREASED GLUCOSE; Start 01/19/17 at 09:00 Glucagon (Glucagen) 1 mg Q15M PRN IM DECREASED GLUCOSE; Start 01/19/17 at 09:00 Glucose (Glutose) 15 gm Q15M PRN BUCCAL DECREASED GLUCOSE; Start 01/19/17 at 09: 00 IV Flush (NS 10 ml) 10 ml PRN PRN IV FLUSH LINE; Start 01/19/17 at 12:00 Diphenhydramine HCl (Benadryl Liquid Cup) 25 mg QHS PRN NGT ITCHING; Start 01/19 at 21:00 Hydralazine HCl (Apresoline) 25 mg Q4H PRN NGT hypertension Last administered on 01/25/17 12:17; Admin Dose 25 MG; Start 01/19/17 at 20:30 Acetaminophen/ Hydrocodone Bitart ([place] (5/325)) 1 tab Q6H PRN NGT MODERATE PAIN LEVEL 4-6; Start 01/20/17 at 02:30 Magnesium Hydroxide (Milk Of Mag) 30 ml DAILY PRN NGT CONSTIPATION; Start at 20:30 Acetaminophen (Tylenol Liquid) 1,000 mg Q4H PRN NGT PAIN AND OR ELEVATED TEMP; Start 01/19/17 at 20:30; Status Future Hold Docusate Sodium (Colace Liquid Cup) 100 mg TID NGT Last administered on 13:59; Admin Dose 100 MG; Start 01/19/17 at 21:00 Lorazepam (Ativan) 2 mg Q6H PRN IV before LP and MRI Last administered on 11:28; Admin Dose 2 MG; Start 01/20/17 at 00:00 Lansoprazole 30 mg 30 mg DAILY@06 NGT Last administered on 02/05/17 06:01; Admin Dose 30 MG; Start 01/21/17 at 06:00 Norepinephrine/ Dextrose (Levophed/D5W) 500 ml @ 1.87 mls/hr TITRATE IV ; Start 01/20/17 at 17:30 Heparin Sodium (Porcine) (Heparin (5000 Units/0.5 ml)) 5,000 unit BID SC Last administered on 02/05/17 08:35; Admin Dose 5,000 UNIT; Start 01/24/17 at 21:00 Hydralazine HCl (Apresoline) 50 mg TID NGT Last administered on 02/03/17 20:31 ; Admin Dose 50 MG; Start 01/26/17 at 21:00 Diagnostic Test (Pha) (Accu-Chek) 1 ea 02 XX ; Start 02/01/17 at 02:00 Insulin Aspart (Novolog Insulin Pen) NOVOLOG *MODERATE* ALGORI... Q4 SC Last administered on 02/05/17 12:51; Admin Dose 4 UNIT; Start 01/31/17 at 21:00 Epoetin Efrain (Epogen (Neserd)) 6,000 units MoWeFr@17 SC Last administered on 18:33; Admin Dose 6,000 UNITS; Start 02/01/17 at 17:00 Senna (Senokot) 1 tab BID PRN PO CONSTIPATION; Start 02/01/17 at 17:00 Polyethylene Glycol (Miralax) 17 gm DAILY PO Last administered on 02/02/17 10: 09; Admin Dose 17 GM; Start 02/02/17 at 09:00 Atropine Sulfate (Atropine (Syringe)) 1 mg PRN PRN IV DECREASED HEART RATE; Start 02/02/17 at 02:00 Dexamethasone 4 mg 4 mg DAILY IV Last administered on 02/05/17 08:28; Admin Dose 4 MG; Start 02/04/17 at 09:00 Dextrose 1,000 ml @ 50 mls/hr Q20H IV Last administered on 02/05/17 04:00; Admin Dose 50 MLS/HR; Start 02/04/17 at 08:00 Propofol 100 ml @ 2.295 mls/ hr Q12H IV Last administered on 02/05/17 13:34; Admin Dose 13.77 MLS/HR; Start 02/04/17 at 08:30 Phenylephrine HCl 40 mg/Dextrose 500 ml @ 75 mls/hr TITRATE IV Last administered on 02/05/17 08:36; Admin Dose 30 MLS/HR; Start 02/04/17 at 09:00 Meropenem/Sodium Chloride (Merrem 500mg/50 ml(Pmx)) 50 ml @ 100 mls/hr Q24H IVPB ; Start 02/05/17 at 17:00 Miscellaneous Information (*Rx Drug Level Order Reminder*) VANCOMYCIN RANDOM LEVEL IN AM ONCE ONCE XX ; Start 02/06/17 at 05:00; Stop 02/06/17 at 05:01 Assessment/Plan Chief Complaint/Hosp Course IMPRESSION: 1. Hypoxemic respiratory failure requiring reintubation 2. 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 3. Renal insufficiency 4. Hx Lung Ca 5. Abbi granulomatosis. 6. Aspiration risk PLAN: 1. Patient unable to protect airway secretions. Will likely need tracheostomy and PEG tube. 2. Supportive care for West Nile virus 3. ID recs 4. DVT and GI prophylaxis. Continue current level of care. Critical care time 40 minutes. Problems: CAROL D[facility]AZ MD, [facility] Feb 05, 2017 15:58
--- NOTE | 2017-02-05 17:01 | CONS ---
Date/Time of Note Date/Time of Note DATE: 02/05/17 TIME: 16:51 Consult Date/Type/Reason Admit Date/Time Jan 17, 2017 at 17:33 Type of Consultation: neurology Subjective No acute events, afebrile, all cultures negative, still meropenem/vanco Objective Vital Signs Date Time Temp Pulse Resp B/P Pulse Ox O2 Delivery O2 Flow Rate FiO2 02/05/17 16:00 98.6 59 24 117/71 100 Mechanical Ventilator 02/05/17 15:47 45 02/04/17 05:14 3.0 Intake and Output 02/04/17 02/04/17 02/05/17 15:00 23:00 07:00 Intake Total 1429.735 ml 2081.655 ml 947.045 ml Output Total 223 ml 3896 ml 490 ml Balance 1206.735 ml -1814.345 ml 457.045 ml Exam NEUROLOGIC: Patient is sedated, propofol 30 eyes opened, tracks to voice, [id number] simple commands with prompting Blinks to visual threat bilaterally. Pupils about 2 mm sluggish. Extraocular movements intact . Corneal reflexes present bilaterally Gags Motor strength examination make a fist on command, stronger on the left. No movements BLE Deep tendon reflexes, 2+ upper extremities, none LE. No response to plantar stimulation bilaterally. Results/Medications Result Diagram: 02/05/17 0500 02/05/17 0500 Results 24 hrs Laboratory Tests Test 02/04/17 17:08 02/04/17 21:42 02/05/17 01:23 02/05/17 05:00 Bedside Glucose 191 92 120 White Blood Count 16.8 H Red Blood Count 2.96 L Hemoglobin 8.2 L Hematocrit 26.5 L Mean Corpuscular Volume 89.5 Mean Corpuscular Hemoglobin 27.7 L Mean Corpuscular Hemoglobin Concent 30.9 L Red Cell Distribution Width 21.4 H Platelet Count 99 L Mean Platelet Volume Neutrophils % 87.9 H Lymphocytes % 3.5 L Monocytes % 7.4 Eosinophils % 0.4 Basophils % 0.1 Nucleated Red Blood Cells % 1.4 H Neutrophils # 14.8 H Lymphocytes # 0.6 L Monocytes # 1.3 H Eosinophils # 0.1 Basophils # 0.0 Nucleated Red Blood Cells # 0.2 H Sodium Level 144 Potassium Level 3.7 Chloride Level 109 Carbon Dioxide Level 27 Anion Gap 12 Blood Urea Nitrogen 77 #H Creatinine 2.28 H Glucose Level 114 Lactic Acid Level 1.2 Calcium Level 8.2 L Phosphorus Level 6.0 H Magnesium Level 2.4 Total Bilirubin 0.2 Direct Bilirubin 0.00 Indirect Bilirubin 0.2 Aspartate Amino Transf (AST/SGOT) 46 Alanine Aminotransferase (ALT/SGPT) 80 H Alkaline Phosphatase 124 H Total Protein 5.3 L Albumin 2.5 L Test 02/05/17 05:11 02/05/17 07:00 02/05/17 08:33 02/05/17 12:49 Bedside Glucose 114 120 190 Blood Gas Specimen Source Blood arterial Arterial Blood Date Drawn 02/05/2017 7:35:21 AM Arterial Blood pH (Temp corrected) 7.484 H Arterial Blood pCO2 (Temp correct) 33.3 L Arterial Blood pO2 (Temp corrected) 88.6 Arterial Blood HCO3 24.5 Arterial Blood Base Excess 1.2 Arterial Blood Oxygen Saturation 96.5 George Test ACCEPTAB Arterial Blood Gas Puncture Site Right Radial Arterial Blood Carboxyhemoglobin 0 Arterial Blood Methemoglobin 0.3 Blood Gas A-a O2 Differential 194.4 H Oxyhemoglobin Percent 96.2 Total Hemoglobin 8.6 L Blood Gas Temperature 37.0 Blood Gas Respiration Rate 14.0 Blood Gas Actual Respiration Rate 23 Blood Gas Modality VENT - AC FiO2 45.0 Blood Gas Tidal Volume 500.0 Blood Gas Low PEEP Setting 5.0 Blood Gas Notified Whom CW Blood Gas Notified Time 02/05/2017 8:24:30 AM Medications Current Medications Ondansetron HCl (Zofran Inj) 4 mg Q6H PRN IV NAUSEA AND/OR VOMITING; Start 01/17 at 14:30 Morphine Sulfate (morphine) 2 mg Q4H PRN IV SEVERE PAIN LEVEL 7-10 Last administered on 01/31/17 07:22; Admin Dose 2 MG; Start 01/17/17 at 14:30 Docusate Sodium (Colace) 100 mg Q12H PRN PO CONSTIPATION; Start 01/17/17 at 14: 30 Febuxostat (Uloric) 40 mg DAILY PO Last administered on 02/05/17 08:28; Admin Dose 40 MG; Start 01/18/17 at 09:00 Diphenhydramine HCl (Benadryl) 25 mg Q4H PRN IV CHILLS; Start 01/17/17 at 18:30 Nicotine 1 patch 1 patch DAILY TRANSDERM Last administered on 02/05/17 08:28; Admin Dose 1 PATCH; Start 01/18/17 at 10:30 Acetaminophen (Ofirmev 1000mg/ 100ml Iv) 100 ml @ 400 mls/hr Q4 PRN IVPB FEVER GREATER THAN 100.6 Last administered on 02/04/17 12:00; Admin Dose 400 MLS/HR; Start 01/19/17 at 00:30 Hydralazine HCl (Apresoline) 10 mg Q4H PRN IV hypertension Last administered on 01/27/17 22:20; Admin Dose 10 MG; Start 01/19/17 at 01:00 Miscellaneous Information 1 ea NOTE XX ; Start 01/19/17 at 09:00 Glucose (Glutose) 15 gm Q15M PRN PO DECREASED GLUCOSE; Start 01/19/17 at 09:00 Glucose (Glutose) 22.5 gm Q15M PRN PO DECREASED GLUCOSE; Start 01/19/17 at 09:00 Dextrose (D50w Syringe) 25 ml Q15M PRN IV DECREASED GLUCOSE; Start 01/19/17 at 09:00 Dextrose (D50w Syringe) 50 ml Q15M PRN IV DECREASED GLUCOSE; Start 01/19/17 at 09:00 Glucagon (Glucagen) 1 mg Q15M PRN IM DECREASED GLUCOSE; Start 01/19/17 at 09:00 Glucose (Glutose) 15 gm Q15M PRN BUCCAL DECREASED GLUCOSE; Start 01/19/17 at 09: 00 IV Flush (NS 10 ml) 10 ml PRN PRN IV FLUSH LINE; Start 01/19/17 at 12:00 Diphenhydramine HCl (Benadryl Liquid Cup) 25 mg QHS PRN NGT ITCHING; Start 01/19 at 21:00 Hydralazine HCl (Apresoline) 25 mg Q4H PRN NGT hypertension Last administered on 01/25/17 12:17; Admin Dose 25 MG; Start 01/19/17 at 20:30 Acetaminophen/ Hydrocodone Bitart ([place] (5/325)) 1 tab Q6H PRN NGT MODERATE PAIN LEVEL 4-6; Start 01/20/17 at 02:30 Magnesium Hydroxide (Milk Of Mag) 30 ml DAILY PRN NGT CONSTIPATION; Start at 20:30 Acetaminophen (Tylenol Liquid) 1,000 mg Q4H PRN NGT PAIN AND OR ELEVATED TEMP; Start 01/19/17 at 20:30; Status Future Hold Docusate Sodium (Colace Liquid Cup) 100 mg TID NGT Last administered on 13:59; Admin Dose 100 MG; Start 01/19/17 at 21:00 Lorazepam (Ativan) 2 mg Q6H PRN IV before LP and MRI Last administered on 11:28; Admin Dose 2 MG; Start 01/20/17 at 00:00 Lansoprazole 30 mg 30 mg DAILY@06 NGT Last administered on 02/05/17 06:01; Admin Dose 30 MG; Start 01/21/17 at 06:00 Norepinephrine/ Dextrose (Levophed/D5W) 500 ml @ 1.87 mls/hr TITRATE IV ; Start 01/20/17 at 17:30 Heparin Sodium (Porcine) (Heparin (5000 Units/0.5 ml)) 5,000 unit BID SC Last administered on 02/05/17 08:35; Admin Dose 5,000 UNIT; Start 01/24/17 at 21:00 Hydralazine HCl (Apresoline) 50 mg TID NGT Last administered on 02/03/17 20:31 ; Admin Dose 50 MG; Start 01/26/17 at 21:00 Diagnostic Test (Pha) (Accu-Chek) 1 ea 02 XX ; Start 02/01/17 at 02:00 Insulin Aspart (Novolog Insulin Pen) NOVOLOG *MODERATE* ALGORI... Q4 SC Last administered on 02/05/17 12:51; Admin Dose 4 UNIT; Start 01/31/17 at 21:00 Epoetin Efrain (Epogen (Neserd)) 6,000 units MoWeFr@17 SC Last administered on 18:33; Admin Dose 6,000 UNITS; Start 02/01/17 at 17:00 Senna (Senokot) 1 tab BID PRN PO CONSTIPATION; Start 02/01/17 at 17:00 Polyethylene Glycol (Miralax) 17 gm DAILY PO Last administered on 02/02/17 10: 09; Admin Dose 17 GM; Start 02/02/17 at 09:00 Atropine Sulfate (Atropine (Syringe)) 1 mg PRN PRN IV DECREASED HEART RATE; Start 02/02/17 at 02:00 Dexamethasone 4 mg 4 mg DAILY IV Last administered on 02/05/17 08:28; Admin Dose 4 MG; Start 02/04/17 at 09:00 Dextrose 1,000 ml @ 50 mls/hr Q20H IV Last administered on 02/05/17 04:00; Admin Dose 50 MLS/HR; Start 02/04/17 at 08:00 Propofol 100 ml @ 2.295 mls/ hr Q12H IV Last administered on 02/05/17 13:34; Admin Dose 13.77 MLS/HR; Start 02/04/17 at 08:30 Phenylephrine HCl 40 mg/Dextrose 500 ml @ 75 mls/hr TITRATE IV Last administered on 02/05/17 08:36; Admin Dose 30 MLS/HR; Start 02/04/17 at 09:00 Meropenem/Sodium Chloride (Merrem 500mg/50 ml(Pmx)) 50 ml @ 100 mls/hr Q24H IVPB ; Start 02/05/17 at 17:00 Miscellaneous Information (*Rx Drug Level Order Reminder*) VANCOMYCIN RANDOM LEVEL IN AM ONCE ONCE XX ; Start 02/06/17 at 05:00; Stop 02/06/17 at 05:01 Assessment/Plan Chief Complaint/Hosp Course IMPRESSION: 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 Resp failure, on dialysis. faiedl extubation. Plan trach, peg, replace femoral port Problems: LALO MONACO MD Feb 05, 2017 17:01
[2017-02-05] MEDS: EPOETIN ALFA (NESRD) 3,000 UNITS/ML VIAL SC SCH (17:03)
[2017-02-05] MEDS: MEROPENEM 500MG/50 ML (PMX) 50 ML IVPB SCH (17:03)
--- NOTE | 2017-02-05 17:03 | CONS ---
Date/Time of Note Date/Time of Note DATE: 02/05/17 TIME: 17:01 Consult Date/Type/Reason Admit Date/Time Jan 17, 2017 at 17:33 Type of Consultation: cardiology Subjective CARDIOLOGY FOLLOW UP NOTE: D/W STAFF and rhythm was reviewed. pt remains in NSR. no more pauses seen overnight. pt still remains intubated on vent and nonverbal d/w Dr Guan OBJECTIVE: GEN: intubated on vent HEENT: NCAT. pupils are equal neck: no JVD CV: RRR. no m/g/r pulm: no wheezing anteriorly. +mild rhonchi. GI: soft, NT ND. no rebound or guarding. ext + B/L LE edema neuro: sedated psych: calm pleasant Derm;' No active bleeding ECHO: 1. Normal left ventricular systolic function. Normal left ventricular cavity size. Moderate concentric left ventricular hypertrophy. Ejection fraction is visually estimated at 65 %. Tissue Doppler/Mitral Doppler indices are consistent with impaired relaxation (Stage I diastolic dysfunction). 2. Normal appearance and function of the mitral valve with trace physiologic regurgitation. 3. No hemodynamically significant aortic stenosis by doppler. Aortic cusps appear mildly calcified. Mild aortic valve regurgitation. 4. Normal appearance of the tricuspid valve. Unable to obtain RVSP due to minimal presence of tricuspid regurgitation. Objective Vital Signs Date Time Temp Pulse Resp B/P Pulse Ox O2 Delivery O2 Flow Rate FiO2 02/05/17 16:00 98.6 59 24 117/71 100 Mechanical Ventilator 02/05/17 15:47 45 02/04/17 05:14 3.0 Intake and Output 02/04/17 02/04/17 02/05/17 15:00 23:00 07:00 Intake Total 1429.735 ml 2081.655 ml 947.045 ml Output Total 223 ml 3896 ml 490 ml Balance 1206.735 ml -1814.345 ml 457.045 ml Results/Medications Result Diagram: 02/05/17 0500 02/05/17 0500 Results 24 hrs Laboratory Tests Test 02/04/17 17:08 02/04/17 21:42 02/05/17 01:23 02/05/17 05:00 Bedside Glucose 191 92 120 White Blood Count 16.8 H Red Blood Count 2.96 L Hemoglobin 8.2 L Hematocrit 26.5 L Mean Corpuscular Volume 89.5 Mean Corpuscular Hemoglobin 27.7 L Mean Corpuscular Hemoglobin Concent 30.9 L Red Cell Distribution Width 21.4 H Platelet Count 99 L Mean Platelet Volume Neutrophils % 87.9 H Lymphocytes % 3.5 L Monocytes % 7.4 Eosinophils % 0.4 Basophils % 0.1 Nucleated Red Blood Cells % 1.4 H Neutrophils # 14.8 H Lymphocytes # 0.6 L Monocytes # 1.3 H Eosinophils # 0.1 Basophils # 0.0 Nucleated Red Blood Cells # 0.2 H Sodium Level 144 Potassium Level 3.7 Chloride Level 109 Carbon Dioxide Level 27 Anion Gap 12 Blood Urea Nitrogen 77 #H Creatinine 2.28 H Glucose Level 114 Lactic Acid Level 1.2 Calcium Level 8.2 L Phosphorus Level 6.0 H Magnesium Level 2.4 Total Bilirubin 0.2 Direct Bilirubin 0.00 Indirect Bilirubin 0.2 Aspartate Amino Transf (AST/SGOT) 46 Alanine Aminotransferase (ALT/SGPT) 80 H Alkaline Phosphatase 124 H Total Protein 5.3 L Albumin 2.5 L Test 02/05/17 05:11 02/05/17 07:00 02/05/17 08:33 02/05/17 12:49 Bedside Glucose 114 120 190 Blood Gas Specimen Source Blood arterial Arterial Blood Date Drawn 02/05/2017 7:35:21 AM Arterial Blood pH (Temp corrected) 7.484 H Arterial Blood pCO2 (Temp correct) 33.3 L Arterial Blood pO2 (Temp corrected) 88.6 Arterial Blood HCO3 24.5 Arterial Blood Base Excess 1.2 Arterial Blood Oxygen Saturation 96.5 George Test ACCEPTAB Arterial Blood Gas Puncture Site Right Radial Arterial Blood Carboxyhemoglobin 0 Arterial Blood Methemoglobin 0.3 Blood Gas A-a O2 Differential 194.4 H Oxyhemoglobin Percent 96.2 Total Hemoglobin 8.6 L Blood Gas Temperature 37.0 Blood Gas Respiration Rate 14.0 Blood Gas Actual Respiration Rate 23 Blood Gas Modality VENT - AC FiO2 45.0 Blood Gas Tidal Volume 500.0 Blood Gas Low PEEP Setting 5.0 Blood Gas Notified Whom CW Blood Gas Notified Time 02/05/2017 8:24:30 AM Medications Current Medications Ondansetron HCl (Zofran Inj) 4 mg Q6H PRN IV NAUSEA AND/OR VOMITING; Start 01/17 at 14:30 Morphine Sulfate (morphine) 2 mg Q4H PRN IV SEVERE PAIN LEVEL 7-10 Last administered on 01/31/17 07:22; Admin Dose 2 MG; Start 01/17/17 at 14:30 Docusate Sodium (Colace) 100 mg Q12H PRN PO CONSTIPATION; Start 01/17/17 at 14: 30 Febuxostat (Uloric) 40 mg DAILY PO Last administered on 02/05/17 08:28; Admin Dose 40 MG; Start 01/18/17 at 09:00 Diphenhydramine HCl (Benadryl) 25 mg Q4H PRN IV CHILLS; Start 01/17/17 at 18:30 Nicotine 1 patch 1 patch DAILY TRANSDERM Last administered on 02/05/17 08:28; Admin Dose 1 PATCH; Start 01/18/17 at 10:30 Acetaminophen (Ofirmev 1000mg/ 100ml Iv) 100 ml @ 400 mls/hr Q4 PRN IVPB FEVER GREATER THAN 100.6 Last administered on 02/04/17 12:00; Admin Dose 400 MLS/HR; Start 01/19/17 at 00:30 Hydralazine HCl (Apresoline) 10 mg Q4H PRN IV hypertension Last administered on 01/27/17 22:20; Admin Dose 10 MG; Start 01/19/17 at 01:00 Miscellaneous Information 1 ea NOTE XX ; Start 01/19/17 at 09:00 Glucose (Glutose) 15 gm Q15M PRN PO DECREASED GLUCOSE; Start 01/19/17 at 09:00 Glucose (Glutose) 22.5 gm Q15M PRN PO DECREASED GLUCOSE; Start 01/19/17 at 09:00 Dextrose (D50w Syringe) 25 ml Q15M PRN IV DECREASED GLUCOSE; Start 01/19/17 at 09:00 Dextrose (D50w Syringe) 50 ml Q15M PRN IV DECREASED GLUCOSE; Start 01/19/17 at 09:00 Glucagon (Glucagen) 1 mg Q15M PRN IM DECREASED GLUCOSE; Start 01/19/17 at 09:00 Glucose (Glutose) 15 gm Q15M PRN BUCCAL DECREASED GLUCOSE; Start 01/19/17 at 09: 00 IV Flush (NS 10 ml) 10 ml PRN PRN IV FLUSH LINE; Start 01/19/17 at 12:00 Diphenhydramine HCl (Benadryl Liquid Cup) 25 mg QHS PRN NGT ITCHING; Start 01/19 at 21:00 Hydralazine HCl (Apresoline) 25 mg Q4H PRN NGT hypertension Last administered on 01/25/17 12:17; Admin Dose 25 MG; Start 01/19/17 at 20:30 Acetaminophen/ Hydrocodone Bitart ([place] (5/325)) 1 tab Q6H PRN NGT MODERATE PAIN LEVEL 4-6; Start 01/20/17 at 02:30 Magnesium Hydroxide (Milk Of Mag) 30 ml DAILY PRN NGT CONSTIPATION; Start at 20:30 Acetaminophen (Tylenol Liquid) 1,000 mg Q4H PRN NGT PAIN AND OR ELEVATED TEMP; Start 01/19/17 at 20:30; Status Future Hold Docusate Sodium (Colace Liquid Cup) 100 mg TID NGT Last administered on 13:59; Admin Dose 100 MG; Start 01/19/17 at 21:00 Lorazepam (Ativan) 2 mg Q6H PRN IV before LP and MRI Last administered on 11:28; Admin Dose 2 MG; Start 01/20/17 at 00:00 Lansoprazole 30 mg 30 mg DAILY@06 NGT Last administered on 02/05/17 06:01; Admin Dose 30 MG; Start 01/21/17 at 06:00 Norepinephrine/ Dextrose (Levophed/D5W) 500 ml @ 1.87 mls/hr TITRATE IV ; Start 01/20/17 at 17:30 Heparin Sodium (Porcine) (Heparin (5000 Units/0.5 ml)) 5,000 unit BID SC Last administered on 02/05/17 08:35; Admin Dose 5,000 UNIT; Start 01/24/17 at 21:00 Hydralazine HCl (Apresoline) 50 mg TID NGT Last administered on 02/03/17 20:31 ; Admin Dose 50 MG; Start 01/26/17 at 21:00 Diagnostic Test (Pha) (Accu-Chek) 1 ea 02 XX ; Start 02/01/17 at 02:00 Insulin Aspart (Novolog Insulin Pen) NOVOLOG *MODERATE* ALGORI... Q4 SC Last administered on 02/05/17 12:51; Admin Dose 4 UNIT; Start 01/31/17 at 21:00 Epoetin Efrain (Epogen (Neserd)) 6,000 units MoWeFr@17 SC Last administered on 18:33; Admin Dose 6,000 UNITS; Start 02/01/17 at 17:00 Senna (Senokot) 1 tab BID PRN PO CONSTIPATION; Start 02/01/17 at 17:00 Polyethylene Glycol (Miralax) 17 gm DAILY PO Last administered on 02/02/17 10: 09; Admin Dose 17 GM; Start 02/02/17 at 09:00 Atropine Sulfate 1 mg 1 mg PRN PRN IV DECREASED HEART RATE; Start 02/02/17 at 02:00 Dextrose 1,000 ml @ 50 mls/hr Q20H IV Last administered on 02/05/17 04:00; Admin Dose 50 MLS/HR; Start 02/04/17 at 08:00 Propofol 100 ml @ 2.295 mls/ hr Q12H IV Last administered on 02/05/17 13:34; Admin Dose 13.77 MLS/HR; Start 02/04/17 at 08:30 Phenylephrine HCl 40 mg/Dextrose 500 ml @ 75 mls/hr TITRATE IV Last administered on 02/05/17 08:36; Admin Dose 30 MLS/HR; Start 02/04/17 at 09:00 Meropenem/Sodium Chloride (Merrem 500mg/50 ml(Pmx)) 50 ml @ 100 mls/hr Q24H IVPB ; Start 02/05/17 at 17:00 Miscellaneous Information (*Rx Drug Level Order Reminder*) VANCOMYCIN RANDOM LEVEL IN AM ONCE ONCE XX ; Start 02/06/17 at 05:00; Stop 02/06/17 at 05:01 Dexamethasone (Decadron) 2 mg DAILY IV ; Start 02/06/17 at 09:00 Assessment/Plan Chief Complaint/Hosp Course Assessment/ Recommendations: 1. SICK SINUS syndrome: with long pauses. probably vasovagal: currently stable . will closely monitor for now 2. encephalopathy, west nile virus: defer to ID and neuro rec 3. ESRD: on HD now f/u with renal 4. HTN: currently hypotensive and on neosyndephrine titrate off as tolerated. 5. anemia; stable . 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 resp failure; re-intubated now again THANK YOU HERIBERTO FROST MD [facility] Problems: HERIBERTO FROST MD Feb 05, 2017 17:03
--- NOTE | 2017-02-05 21:56 | PN ---
DATE: 02/05/2017 SUBJECTIVE DATA: The patient is seen, patient opens his eyes and moves to the side, he does not really track or follow commands. The feeding was restarted via NG tube. Noted the worsening anemia. There is no evidence of bleeding. Status post CT scan of the brain which did not reveal any acute pathology. OBJECTIVE DATA: VITAL SIGNS: Temperature 97.9, pulse 57, respirations 22, blood pressure 116/67. Saturation 100 percent on 45 percent FiO2. The patient has a T-max 99.2. GENERAL: The patient is pale, moving his eyes to the side. HEART: S1, S2. Regular rate. LUNGS: Mild rhonchi bilaterally. ABDOMEN: Soft, slightly distended. EXTREMITIES: Trace to +1 edema throughout. LABS: White count 16.8, hemoglobin 8.2, hematocrit 27, platelet count 99,000. Neutrophils 88 percent, eosinophil 4 percent. Chemistry: Sodium 144, potassium 3.7, chloride 109, bicarb 27, BUN 77, creatinine 2.28, glucose of 114. Urine culture on 02/04/2017 was negative. The patient chest x-ray dated today shows the tubes and lines in satisfactory position, arteriosclerosis and clear lungs. MEDICATIONS: Reviewed include meropenem 1 g IV every 24 h. Vancomycin dose per pharmacy. Decadron 40 mg daily. MiraLAX 17 g daily. Patient is on D5W at 50 mL an hour. Atropine as directed, senna 1 tab 3 times as needed, insulin NovoLog per sliding scale every 4 h., Hydralazine 50 mg 3 times daily. Heparin 5000 units twice a day. Prevacid 30 mg daily. Ativan as needed. Benadryl as needed. Colace 100 3 times daily, hydralazine 25 every 4 h as needed. Hypoglycemia protocol, Tylenol as needed. Nicotine patch 14 mcg daily, Uloric 40 mg daily. Breathing treatment every 2 as needed. Zofran as needed. Morphine as needed. Colace as needed. ASSESSMENT AND PLAN: This is an unfortunate 66-year-old, a male with history of Abbi granulomatosis, chronic kidney disease, who presented with 1 week of fevers and decreased oral intake and now with progressive encephalopathy requiring intubation. 1. RESPIRATORY: Chest x-ray is unremarkable. May not be able to extubated secondary to his encephalopathy. Continue to monitor and periodically on antibiotic for possible aspiration pneumonia. The patient noted to have fevers and leukocytosis. 2. CARDIOVASCULAR: Continue heparin for deep venous thrombosis prophylaxis. Vitals are stable. No pressors. 3. GASTROINTESTINAL: Hemoglobin and hematocrit is low. Monitor hemoglobin and hematocrit as needed. Transfusion. Continue PPI. 4. Acute on chronic renal insufficiency. Status post dialysis yesterday. We will continue to monitor. Continue dialysis for fluid removal and for possible uremia. 5. Hyperglycemia observed. Continuously sliding scale. 6. The dysphagic. Continue NG-tube feeding. We will proceed with G-tube placement. If trach will be done. 7. INFECTIOUS DISEASE: Patient with West Nile virus, encephalitis. Continue supportive care. Also, empirically on Decadron for brain edema noted on MRI. He did improve significantly after initiation of steroids and now could neurologically worse. 8. Abbi granulomatosis. Appreciate Rheumatology follow-up in input. Will continue to monitor closely. Dictated By: Gurwinder Triplett MD /[email or web address] /Document#: [id number]
[2017-02-06] VITALS (90 sets, daily range): BP systolic 80–141; BP diastolic 53–88; PULSE 59–100; RESP 15–33
[2017-02-06] MEDS: DEXTROSE 5% 1,000 ML IV SCH ×4 (00:31→20:28)
[2017-02-06] MEDS: PHENYLephrine 40 MG in DEXTROSE 5% 496 ML IV SCH (01:19)
[2017-02-06] MEDS: INSULIN ASPART [NOVOLOG] 3 ML PEN SC SCH ×6 (01:20→21:00)
[2017-02-06] MEDS: ACCU-CHEK XX SCH (02:20)
[2017-02-06 05:31] LABS: CALCIUM 7.8 mg/dl (8.4-10.2); CREATININE 2.54 mg/dl (0.61-1.24); MAGNESIUM 2.2 mg/dl (1.7-2.5); PHOSPHORUS 5.3 mg/dl (2.5-4.9); POTASSIUM 3.2 mmol/L (3.5-5.1)
[2017-02-06 05:34] LABS: ABNORMAL IP MESSAGE 1; BASOPHILS % 0.1 % (0.0-2.0); EOSINOPHILS # 0.3 10^3/ul (0.0-0.5); EOSINOPHILS % 2.6 % (0.0-7.0); HEMOGLOBIN 7.2 g/dl (14.0-18.0); LYMPHOCYTES # 0.5 10^3/ul (0.8-2.9); LYMPHOCYTES % 4.8 % (15.0-51.0); MEAN CORPUSCULAR HEMOGLOBIN 27.8 pg (29.0-33.0); MEAN CORPUSCULAR HGB CONC 31.3 g/dl (32.0-37.0); MEAN CORPUSCULAR VOLUME 88.8 fl (82.0-101.0); MONOCYTES % 8.8 % (0.0-11.0); NEUTROPHIL # 9.1 10^3/ul (1.6-7.5); NEUTROPHILS % 83.1 % (39.0-77.0); NUCLEATED RED BLOOD CELLS # 0.2 10^3/ul (0.0-0.0); NUCLEATED RED BLOOD CELLS% 1.5 /100WBC (0.0-0.0); PLATELET COUNT 88 10^3/UL (140-415); POSITIVE DIFF @See below; RED BLOOD COUNT 2.59 10^6/ul (4.70-6.10); RED CELL DISTRIBUTION WIDTH 20.3 % (11.5-14.5)
[2017-02-06] MEDS: LANSOPRAZOLE 30 MG CAP NGT SCH (06:29)
--- NOTE | 2017-02-06 07:29 | RADRPT ---
PROCEDURE: XR Chest. CLINICAL INDICATION: Shortness of breath. TECHNIQUE: Single frontal view. COMPARISON: 02/05/2017. FINDINGS: The endotracheal tube, nasogastric tube, left arm PICC line are in satisfactory and unchanged positi on. The lungs are clear. The heart size is normal. There is calcification in the aorta consistent with atherosclerosis. There is no pleural effusion. There is no pneumothorax. IMPRESSION: 1. Tubes and lines in satisfactory position. 2. Clear lungs. RPTAT: QQ .Caden Cerna MD, MD Date Time Electronically viewed and signed by .Caden Cerna MD, MD on 02/06/2017 07:29 .R/
[2017-02-06] MEDS ORDERED: POTASSIUM CHLORIDE 20 MEQ POWDER FOR ORAL SOLN NGT ONE (08:00)
[2017-02-06] MEDS: FEBUXOSTAT 40 MG TABLET PO SCH (09:00)
--- NOTE | 2017-02-06 09:18 | PN ---
DATE: 02/06/2017 SUBJECTIVE DATA: The patient remains critically ill, on presser support. The patient is currently on hemodialysis, tolerating well. No other events noted. OBJECTIVE DATA: VITAL SIGNS: Blood pressure is 100/56, respirations 20, pulse 72, temperature 98.6. HEENT: Head is normocephalic. NECK: Supple. HEART: Regular rate. LUNGS: Diminished breath sounds at the base. ABDOMEN: Soft, nontender to palpation. No rebound or guarding. EXTREMITIES: Negative for clubbing, cyanosis. No positive edema. DERMATOLOGIC: No rashes. MUSCULOSKELETAL: No joint effusion. NEUROLOGIC: No change in exam. MEDICATIONS: Reviewed. LABORATORY AND DIAGNOSTIC DATA: Shows white count 11, hemoglobin 7.2, hematocrit 23, and platelet count is 88. Sodium is 137, potassium 3.2, BUN 88, creatinine 2.54, phosphorus 5.3. IMAGING: Studies reviewed. ASSESSMENT AND PLAN: 1. Nonoliguric acute kidney injury on top of chronic kidney disease, with previous baseline creatinine 1.7 to 2 mg/dL. Etiology of acute kidney injury secondary acute tubular necrosis. The patient is currently dialysis dependent. No signs of recovery at this point. Will continue hemodialysis. 2. Hyponatremia, improved. 3. Anemia monitor hemoglobin and hematocrit levels. 4. Hypokalemia. Replete potassium chloride. We will dialyze and high potassium bath. 5. Mineral bone disorder. Monitor calcium and phosphorus levels. 6. Hypermagnesemia, secondary to acute kidney injury. Improved. 7. Ventilatory-dependent respiratory failure. The patient is re-intubated. Ventilator settings and arterial blood gases reviewed. Continue to monitor. Follow up Pulmonary. 8. Encephalitis. Continue to monitor. Medical management per Neurology. 9. History of Abbi's granulomatosis. Status post-Rituxan. 10. Gastrointestinal and deep venous thrombosis prophylaxis. Dictated By: Jim Sierra DO /[email or web address] /Document#: [id number]
[2017-02-06] MEDS: DEXAMETHASONE 4 MG/ML 1 ML INJ IV SCH (09:29)
[2017-02-06] MEDS: NICOTINE (14 MG/24 HR) PATCH TRANSDERM SCH (09:29)
[2017-02-06] MEDS: DOCUSATE SODIUM 10 MG/ML (10ML CUP) NGT SCH ×3 (09:29→21:00)
[2017-02-06] MEDS: POLYETHYLENE GLYCOL 17 GM PACKET PO SCH (09:29)
[2017-02-06] MEDS: PROPOFOL 100 ML IV SCH ×3 (09:29→22:36)
[2017-02-06] MEDS: HEPARIN 5,000 UNIT/0.5 ML VIAL SC SCH (09:33)
[2017-02-06] MEDS ORDERED: VANCOMYCIN 1 GM in NS 250 ML IVPB SCH (11:00)
--- NOTE | 2017-02-06 11:04 | CONS ---
Date/Time of Note Date/Time of Note DATE: 02/06/17 TIME: 11:01 Assessment/Plan Assessment/Plan Additional Assessment/Plan Ventilator setting; AC of 14, tidal volume 500, PEEP of 5, 45% FiO2. Patient currently on propofol at 30 mics per kilogram per minute. Chest x-ray was reviewed from today which is essentially clear. Plan and recommendations; 1. Patient admitted with meningoencephalitis with persistently poor mental state. 2. Respiratory failure, unable to be extubated because of ongoing encephalopathy. 3. Chronic renal failure, on hemodialysis. 4. Anemia and thrombus cytopenia. 5. History of Abbi's granulomatosis. 6. Chronic immunosuppression. 7. History of lung CA. Next Continue current supportive care. Patient will need to have a tracheostomy and G-tube placed. Prognosis remains poor. Consultation Date/Type/Reason Admit Date/Time Jan 17, 2017 at 17:33 Type of Consultation: Pulmonary/critical care 24 HR Interval Summary Free Text/Dictation Patient's condition remains critical. Still remains fully ventilator dependent. Has failed multiple weaning trials. Patient however has remained hemodynamically stable. General exam; elderly male, orally intubated, currently sedated. Patient in no distress. Exam/Review of Systems Vital Signs Vitals Vital Signs Date Time Temp Pulse Resp B/P Pulse Ox O2 Delivery O2 Flow Rate FiO2 02/06/17 09:10 78 20 100 45 02/06/17 07:30 100/63 02/06/17 07:00 Mechanical Ventilator 02/06/17 04:00 98.8 02/04/17 05:14 3.0 Intake and Output 02/05/17 02/05/17 02/06/17 15:00 23:00 07:00 Intake Total 990.16 ml 1239.105 ml 1240.135 ml Output Total 535 ml 360 ml 210 ml Balance 455.16 ml 879.105 ml 1030.135 ml Exam HEENT exam; supple neck, no JVD. No lymphadenopathy. Midline trachea. No thyromegaly. Pupils are midsize and reactive to light bilaterally. Orally intubated. Patient has fair dentition. Chest exam; clear to auscultation. S1-S2 audible, no murmurs. Regular rhythm. Abdomen exam; soft, no organomegaly. Bowel sounds audible. Extremity exam; no peripheral edema. Pulses 1+ bilaterally. LEAK PATCHER exam; patient is sedated. Results Result Diagram: 02/06/17 0439 02/06/17 0410 Results 24 hrs Laboratory Tests Test 02/05/17 12:49 02/05/17 17:02 02/05/17 21:35 02/06/17 01:16 Bedside Glucose 190 196 204 148 Test 02/06/17 02:19 02/06/17 04:10 02/06/17 04:39 02/06/17 04:56 Bedside Glucose 163 179 Sodium Level 137 Potassium Level 3.2 L Chloride Level 105 Carbon Dioxide Level 25 Anion Gap 10 Blood Urea Nitrogen 88 H Creatinine 2.54 H Glucose Level 158 Calcium Level 7.8 L Phosphorus Level 5.3 H Magnesium Level 2.2 Random Vancomycin Level 13.2 White Blood Count 11.0 #H Red Blood Count 2.59 L Hemoglobin 7.2 L Hematocrit 23.0 L Mean Corpuscular Volume 88.8 Mean Corpuscular Hemoglobin 27.8 L Mean Corpuscular Hemoglobin Concent 31.3 L Red Cell Distribution Width 20.3 H Platelet Count 88 L Mean Platelet Volume Neutrophils % 83.1 H Lymphocytes % 4.8 L Monocytes % 8.8 Eosinophils % 2.6 Basophils % 0.1 Nucleated Red Blood Cells % 1.5 H Neutrophils # 9.1 H Lymphocytes # 0.5 L Monocytes # 1.0 H Eosinophils # 0.3 Basophils # 0.0 Nucleated Red Blood Cells # 0.2 H Test 02/06/17 08:18 Bedside Glucose 186 Medications Medications Current Medications Ondansetron HCl (Zofran Inj) 4 mg Q6H PRN IV NAUSEA AND/OR VOMITING; Start 01/17 at 14:30 Morphine Sulfate (morphine) 2 mg Q4H PRN IV SEVERE PAIN LEVEL 7-10 Last administered on 01/31/17 07:22; Admin Dose 2 MG; Start 01/17/17 at 14:30 Docusate Sodium (Colace) 100 mg Q12H PRN PO CONSTIPATION; Start 01/17/17 at 14: 30 Febuxostat (Uloric) 40 mg DAILY PO Last administered on 02/05/17 08:28; Admin Dose 40 MG; Start 01/18/17 at 09:00 Diphenhydramine HCl (Benadryl) 25 mg Q4H PRN IV CHILLS; Start 01/17/17 at 18:30 Nicotine 1 patch 1 patch DAILY TRANSDERM Last administered on 02/06/17 09:29; Admin Dose 1 PATCH; Start 01/18/17 at 10:30 Acetaminophen (Ofirmev 1000mg/ 100ml Iv) 100 ml @ 400 mls/hr Q4 PRN IVPB FEVER GREATER THAN 100.6 Last administered on 02/04/17 12:00; Admin Dose 400 MLS/HR; Start 01/19/17 at 00:30 Hydralazine HCl (Apresoline) 10 mg Q4H PRN IV hypertension Last administered on 01/27/17 22:20; Admin Dose 10 MG; Start 01/19/17 at 01:00 Miscellaneous Information 1 ea NOTE XX ; Start 01/19/17 at 09:00 Glucose (Glutose) 15 gm Q15M PRN PO DECREASED GLUCOSE; Start 01/19/17 at 09:00 Glucose (Glutose) 22.5 gm Q15M PRN PO DECREASED GLUCOSE; Start 01/19/17 at 09:00 Dextrose (D50w Syringe) 25 ml Q15M PRN IV DECREASED GLUCOSE; Start 01/19/17 at 09:00 Dextrose (D50w Syringe) 50 ml Q15M PRN IV DECREASED GLUCOSE; Start 01/19/17 at 09:00 Glucagon (Glucagen) 1 mg Q15M PRN IM DECREASED GLUCOSE; Start 01/19/17 at 09:00 Glucose (Glutose) 15 gm Q15M PRN BUCCAL DECREASED GLUCOSE; Start 01/19/17 at 09: 00 IV Flush (NS 10 ml) 10 ml PRN PRN IV FLUSH LINE; Start 01/19/17 at 12:00 Diphenhydramine HCl (Benadryl Liquid Cup) 25 mg QHS PRN NGT ITCHING; Start 01/19 at 21:00 Hydralazine HCl (Apresoline) 25 mg Q4H PRN NGT hypertension Last administered on 01/25/17 12:17; Admin Dose 25 MG; Start 01/19/17 at 20:30 Acetaminophen/ Hydrocodone Bitart ([place] (5/325)) 1 tab Q6H PRN NGT MODERATE PAIN LEVEL 4-6; Start 01/20/17 at 02:30 Magnesium Hydroxide (Milk Of Mag) 30 ml DAILY PRN NGT CONSTIPATION; Start at 20:30 Acetaminophen (Tylenol Liquid) 1,000 mg Q4H PRN NGT PAIN AND OR ELEVATED TEMP; Start 01/19/17 at 20:30; Status Future Hold Docusate Sodium (Colace Liquid Cup) 100 mg TID NGT Last administered on 09:29; Admin Dose 100 MG; Start 01/19/17 at 21:00 Lorazepam (Ativan) 2 mg Q6H PRN IV before LP and MRI Last administered on 11:28; Admin Dose 2 MG; Start 01/20/17 at 00:00 Lansoprazole 30 mg 30 mg DAILY@06 NGT Last administered on 02/06/17 06:29; Admin Dose 30 MG; Start 01/21/17 at 06:00 Norepinephrine/ Dextrose (Levophed/D5W) 500 ml @ 1.87 mls/hr TITRATE IV ; Start 01/20/17 at 17:30 Heparin Sodium (Porcine) (Heparin (5000 Units/0.5 ml)) 5,000 unit BID SC Last administered on 02/06/17 09:33; Admin Dose 5,000 UNIT; Start 01/24/17 at 21:00 Hydralazine HCl (Apresoline) 50 mg TID NGT Last administered on 02/03/17 20:31 ; Admin Dose 50 MG; Start 01/26/17 at 21:00 Diagnostic Test (Pha) (Accu-Chek) 1 ea 02 XX Last administered on 02/06/17 02: 20; Admin Dose 1 EA; Start 02/01/17 at 02:00 Insulin Aspart (Novolog Insulin Pen) NOVOLOG *MODERATE* ALGORI... Q4 SC Last administered on 02/06/17 09:32; Admin Dose 4 UNIT; Start 01/31/17 at 21:00 Epoetin Efrain (Epogen (Neserd)) 6,000 units MoWeFr@17 SC Last administered on 17:03; Admin Dose 6,000 UNITS; Start 02/01/17 at 17:00 Senna (Senokot) 1 tab BID PRN PO CONSTIPATION; Start 02/01/17 at 17:00 Polyethylene Glycol (Miralax) 17 gm DAILY PO Last administered on 02/06/17 09: 29; Admin Dose 17 GM; Start 02/02/17 at 09:00 Atropine Sulfate 1 mg 1 mg PRN PRN IV DECREASED HEART RATE; Start 02/02/17 at 02:00 Dextrose 1,000 ml @ 50 mls/hr Q20H IV Last administered on 02/06/17 00:31; Admin Dose 50 MLS/HR; Start 02/04/17 at 08:00 Propofol 100 ml @ 2.295 mls/ hr Q12H IV Last administered on 02/06/17 09:29; Admin Dose 13.77 MLS/HR; Start 02/04/17 at 08:30 Phenylephrine HCl 40 mg/Dextrose 500 ml @ 75 mls/hr TITRATE IV Last administered on 02/06/17 01:19; Admin Dose 22.5 MLS/HR; Start 02/04/17 at 09:00 Meropenem/Sodium Chloride (Merrem 500mg/50 ml(Pmx)) 50 ml @ 100 mls/hr Q24H IVPB Last administered on 02/05/17 17:03; Admin Dose 100 MLS/HR; Start at 17:00 Dexamethasone 2 mg 2 mg DAILY IV Last administered on 02/06/17 09:29; Admin Dose 2 MG; Start 02/06/17 at 09:00 Vancomycin HCl (Vancocin) 250 ml @ 125 mls/hr 11 IVPB ; Start 02/06/17 at 11:00 ; Stop 02/06/17 at 20:00 RATNA MORENO Feb 06, 2017 11:04
[2017-02-06] MEDS ORDERED: ACETAMINOPHEN 325 MG TAB PO SCH (13:30)
--- NOTE | 2017-02-06 17:08 | CONS ---
Date/Time of Note Date/Time of Note DATE: 02/06/17 TIME: 17:04 Consult Date/Type/Reason Admit Date/Time Jan 17, 2017 at 17:33 Type of Consultation: neurology Subjective no acute neuro events Objective Vital Signs Date Time Temp Pulse Resp B/P Pulse Ox O2 Delivery O2 Flow Rate FiO2 02/06/17 16:30 66 21 119/64 100 02/06/17 15:35 40 02/06/17 15:30 98.0 02/06/17 07:00 Mechanical Ventilator 02/04/17 05:14 3.0 Intake and Output 02/05/17 02/05/17 02/06/17 15:00 23:00 07:00 Intake Total 990.16 ml 1239.105 ml 1240.135 ml Output Total 535 ml 360 ml 210 ml Balance 455.16 ml 879.105 ml 1030.135 ml Exam Exam Intubated NEUROLOGIC: Patient is awake propofol 30 eyes opened, tracks to voice, fololows simple commands Blinks to visual threat bilaterally. Pupils about 2 mm sluggish. Extraocular movements intact . Corneal reflexes present bilaterally Gags Motor strength examination make a fist on command, stronger on the left. Trace movements toes Deep tendon reflexes, 2+ upper extremities, none LE. No response to plantar stimulation bilaterally. Results/Medications Result Diagram: 02/06/17 0439 02/06/17 0410 Results 24 hrs Laboratory Tests Test 02/05/17 21:35 02/06/17 01:16 02/06/17 02:19 02/06/17 04:10 Bedside Glucose 204 148 163 Sodium Level 137 Potassium Level 3.2 L Chloride Level 105 Carbon Dioxide Level 25 Anion Gap 10 Blood Urea Nitrogen 88 H Creatinine 2.54 H Glucose Level 158 Calcium Level 7.8 L Phosphorus Level 5.3 H Magnesium Level 2.2 Random Vancomycin Level 13.2 Test 02/06/17 04:39 02/06/17 04:56 02/06/17 08:18 02/06/17 11:36 White Blood Count 11.0 #H Red Blood Count 2.59 L Hemoglobin 7.2 L Hematocrit 23.0 L Mean Corpuscular Volume 88.8 Mean Corpuscular Hemoglobin 27.8 L Mean Corpuscular Hemoglobin Concent 31.3 L Red Cell Distribution Width 20.3 H Platelet Count 88 L Mean Platelet Volume Neutrophils % 83.1 H Lymphocytes % 4.8 L Monocytes % 8.8 Eosinophils % 2.6 Basophils % 0.1 Nucleated Red Blood Cells % 1.5 H Neutrophils # 9.1 H Lymphocytes # 0.5 L Monocytes # 1.0 H Eosinophils # 0.3 Basophils # 0.0 Nucleated Red Blood Cells # 0.2 H Bedside Glucose 179 186 183 Medications Current Medications Ondansetron HCl (Zofran Inj) 4 mg Q6H PRN IV NAUSEA AND/OR VOMITING; Start 01/17 at 14:30 Morphine Sulfate (morphine) 2 mg Q4H PRN IV SEVERE PAIN LEVEL 7-10 Last administered on 01/31/17 07:22; Admin Dose 2 MG; Start 01/17/17 at 14:30 Docusate Sodium (Colace) 100 mg Q12H PRN PO CONSTIPATION; Start 01/17/17 at 14: 30 Febuxostat (Uloric) 40 mg DAILY PO Last administered on 02/05/17 08:28; Admin Dose 40 MG; Start 01/18/17 at 09:00 Diphenhydramine HCl (Benadryl) 25 mg Q4H PRN IV CHILLS; Start 01/17/17 at 18:30 Nicotine 1 patch 1 patch DAILY TRANSDERM Last administered on 02/06/17 09:29; Admin Dose 1 PATCH; Start 01/18/17 at 10:30 Acetaminophen (Ofirmev 1000mg/ 100ml Iv) 100 ml @ 400 mls/hr Q4 PRN IVPB FEVER GREATER THAN 100.6 Last administered on 02/04/17 12:00; Admin Dose 400 MLS/HR; Start 01/19/17 at 00:30 Hydralazine HCl (Apresoline) 10 mg Q4H PRN IV hypertension Last administered on 01/27/17 22:20; Admin Dose 10 MG; Start 01/19/17 at 01:00 Miscellaneous Information 1 ea NOTE XX ; Start 01/19/17 at 09:00 Glucose (Glutose) 15 gm Q15M PRN PO DECREASED GLUCOSE; Start 01/19/17 at 09:00 Glucose (Glutose) 22.5 gm Q15M PRN PO DECREASED GLUCOSE; Start 01/19/17 at 09:00 Dextrose (D50w Syringe) 25 ml Q15M PRN IV DECREASED GLUCOSE; Start 01/19/17 at 09:00 Dextrose (D50w Syringe) 50 ml Q15M PRN IV DECREASED GLUCOSE; Start 01/19/17 at 09:00 Glucagon (Glucagen) 1 mg Q15M PRN IM DECREASED GLUCOSE; Start 01/19/17 at 09:00 Glucose (Glutose) 15 gm Q15M PRN BUCCAL DECREASED GLUCOSE; Start 01/19/17 at 09: 00 IV Flush (NS 10 ml) 10 ml PRN PRN IV FLUSH LINE; Start 01/19/17 at 12:00 Diphenhydramine HCl (Benadryl Liquid Cup) 25 mg QHS PRN NGT ITCHING; Start 01/19 at 21:00 Hydralazine HCl (Apresoline) 25 mg Q4H PRN NGT hypertension Last administered on 01/25/17 12:17; Admin Dose 25 MG; Start 01/19/17 at 20:30 Acetaminophen/ Hydrocodone Bitart ([place] (5/325)) 1 tab Q6H PRN NGT MODERATE PAIN LEVEL 4-6; Start 01/20/17 at 02:30 Magnesium Hydroxide (Milk Of Mag) 30 ml DAILY PRN NGT CONSTIPATION; Start at 20:30 Acetaminophen (Tylenol Liquid) 1,000 mg Q4H PRN NGT PAIN AND OR ELEVATED TEMP; Start 01/19/17 at 20:30; Status Future Hold Docusate Sodium (Colace Liquid Cup) 100 mg TID NGT Last administered on 11:55; Admin Dose 100 MG; Start 01/19/17 at 21:00 Lorazepam (Ativan) 2 mg Q6H PRN IV before LP and MRI Last administered on 11:28; Admin Dose 2 MG; Start 01/20/17 at 00:00 Lansoprazole 30 mg 30 mg DAILY@06 NGT Last administered on 02/06/17 06:29; Admin Dose 30 MG; Start 01/21/17 at 06:00 Norepinephrine/ Dextrose (Levophed/D5W) 500 ml @ 1.87 mls/hr TITRATE IV ; Start 01/20/17 at 17:30 Hydralazine HCl (Apresoline) 50 mg TID NGT Last administered on 9/20/17at 20:31 ; Admin Dose 50 MG; Start 01/26/17 at 21:00 Diagnostic Test (Pha) (Accu-Chek) 1 ea 02 XX Last administered on 02/06/17 02: 20; Admin Dose 1 EA; Start 02/01/17 at 02:00 Insulin Aspart (Novolog Insulin Pen) NOVOLOG *MODERATE* ALGORI... Q4 SC Last administered on 02/06/17 11:54; Admin Dose 4 UNIT; Start 01/31/17 at 21:00 Epoetin Efrain (Epogen (Neserd)) 6,000 units MoWeFr@17 SC Last administered on 17:03; Admin Dose 6,000 UNITS; Start 02/01/17 at 17:00 Senna (Senokot) 1 tab BID PRN PO CONSTIPATION; Start 02/01/17 at 17:00 Polyethylene Glycol (Miralax) 17 gm DAILY PO Last administered on 02/06/17 09: 29; Admin Dose 17 GM; Start 02/02/17 at 09:00 Atropine Sulfate 1 mg 1 mg PRN PRN IV DECREASED HEART RATE; Start 02/02/17 at 02:00 Dextrose 1,000 ml @ 50 mls/hr Q20H IV Last administered on 02/06/17 00:31; Admin Dose 50 MLS/HR; Start 02/04/17 at 08:00 Propofol 100 ml @ 2.295 mls/ hr Q12H IV Last administered on 02/06/17 14:43; Admin Dose 13.77 MLS/HR; Start 02/04/17 at 08:30 Phenylephrine HCl 40 mg/Dextrose 500 ml @ 75 mls/hr TITRATE IV Last administered on 02/06/17 01:19; Admin Dose 22.5 MLS/HR; Start 02/04/17 at 09:00 Meropenem/Sodium Chloride (Merrem 500mg/50 ml(Pmx)) 50 ml @ 100 mls/hr Q24H IVPB Last administered on 02/05/17 17:03; Admin Dose 100 MLS/HR; Start at 17:00 Dexamethasone 2 mg 2 mg DAILY IV Last administered on 02/06/17 09:29; Admin Dose 2 MG; Start 02/06/17 at 09:00 Vancomycin HCl (Vancocin) 250 ml @ 125 mls/hr 11 IVPB Last administered on t 11:53; Admin Dose 125 MLS/HR; Start 02/06/17 at 11:00; Stop 02/06/17 at 20:00 Acetaminophen (Tylenol Tab) 650 mg ONCE PO ; Start 02/06/17 at 13:30; Stop 02/07 at 13:29 Assessment/Plan Chief Complaint/Hosp Course IMPRESSION: 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 S/p IVIG, hx of immunosuppression secondary to Abbi's treatment, on tapering of steroids, as had some cerebellar edema on MRI, Decardon 2 mg qd currently, being tapered off. Resp failure, on dialysis. failed extubation. Plan trach, peg, replace femoral dialysis port Problems: LALO MONACO MD Feb 06, 2017 17:08
--- NOTE | 2017-02-06 17:16 | PN ---
DATE: 02/05/2017 SUBJECTIVE DATA: Patient is on the vent and Cedrick-Synephrine 25 mg as well as some propofol. The patient is opening his eyes and tracking eyes to the side, appears less toxic today. White count went down to 11, also hemoglobin is now 7.2, and platelet count is 88. We will hold his blood thinners for former thrombocytopenia and worsening anemia. Case discussed with neurology and noted pulmonary recommendations, and we may have to proceed with trach and G-tube placement as his recovery may be longer than anticipated. PHYSICAL EXAMINATION: Temperature is 98.8, pulse 64, respirations 22, blood pressure 100 over 80, saturation . GENERAL: Patient is pale, moving his eyes. HEART: S1 and S2. Distant heart sounds. LUNGS: Mild rhonchi bilaterally. ABDOMEN: Soft, nontender. EXTREMITIES: Plus 1 edema. LABORATORY DATA: White count is now normal at eleven, hemoglobin 7.2, hematocrit 23, platelet count is 88, eosinophils 5 percent. Chemistry, sodium 137, potassium 3.2, chloride 105, bicarb 25, BUN is 88, creatinine 2.54, glucose of 158. Last glucose of 183 and 186. Urine culture, blood culture negative. CSF culture negative. Chest x-ray dated today shows the tubes and lines in satisfactory position, clear lungs. As of note, patient is status post dialysis and 2 L of fluids were removed. MEDICATIONS: Vancomycin IV dose per pharmacy that was started today, Decadron 2 mg IV daily, this is being tapered off, Merrem IV daily, propofol as directed, MiraLAX 17 g daily, atropine as directed, Epogen every Wednesday, Wednesday, Wednesday, senna 1 tab b.i.d. p.r.n., insulin as per sliding scale, hydralazine 50 t.i.d., heparin 5,000 b.i.d., will hold that, Prevacid 10 mg daily, [place] p.r.n., Ativan p.r.n., Benadryl p.r.n., Colace 100 t.i.d., hydralazine p.r.n., milk of magnesia p.r.n., hypoglycemia protocol as directed. ASSESSMENT AND PLAN: This is a 66-year-old male with history of Abbi granulomatosis, chronic kidney disease, who presented with 1 week of fever, decreased oral intake, and progressive worsening encephalopathy was diagnosed with West Nile virus encephalitis. 1. Respiratory. Continue full ventilatory support. Not a candidate for weaning unless neurologically improved, may consider trach. 2. Cardiovascular. Hold heparin secondary to thrombocytopenia and anemia. SCDs for deep venous thrombosis prophylaxis. On pressors with Cedrick-Synephrine to keep systolic greater than 90, hold blood pressure meds. 3. Gastrointestinal. Transfuse 1 unit PRBC, currently no evidence of active bleeding. 4. No evidence of bleeding, but also on Epogen. Continue Epogen. 5. Acute on chronic renal insufficiency on dialysis. Once neuro status improves, hopefully we can see if he can be off dialysis. 6. Hyperglycemia stable, glucose level 100. 7. Dysphagia. On NG tube feeding. Could proceed with G-tube placement. Case discussed with Dr. Grant, 8. Infectious disease. On broad spectrum antibiotics for possible hospital-acquired infection, pneumonia versus other, on vancomycin and imipenem. White count is now normal. Steroids are currently being tapered off as well. 9. Encephalopathy secondary to West Nile encephalitis. Steroids did help with the brain edema, but we are tapering this off for now. Continue to monitor in the ICU. Condition is guarded. Dictated By: Gurwinder Triplett MD /eladio/la /Document#: [id number]
[2017-02-06] MEDS: MEROPENEM 500MG/50 ML (PMX) 50 ML IVPB SCH (18:24)
[2017-02-07] VITALS (90 sets, daily range): BP systolic 85–140; BP diastolic 50–105; PULSE 78–117; RESP 12–30
[2017-02-07] MEDS: INSULIN ASPART [NOVOLOG] 3 ML PEN SC SCH ×6 (01:00→21:02)
[2017-02-07] MEDS: ACCU-CHEK XX SCH (02:00)
[2017-02-07 05:53] LABS: ABNORMAL IP MESSAGE 1; BASOPHILS % 0.1 % (0.0-2.0); EOSINOPHILS # 0.5 10^3/ul (0.0-0.5); EOSINOPHILS % 6.4 % (0.0-7.0); HEMATOCRIT 27.9 % (42.0-52.0); HEMOGLOBIN 8.9 g/dl (14.0-18.0); LYMPHOCYTES # 0.4 10^3/ul (0.8-2.9); LYMPHOCYTES % 5.7 % (15.0-51.0); MEAN CORPUSCULAR HEMOGLOBIN 28.3 pg (29.0-33.0); MEAN CORPUSCULAR HGB CONC 31.9 g/dl (32.0-37.0); MEAN CORPUSCULAR VOLUME 88.6 fl (82.0-101.0); MONOCYTE # 0.8 10^3/ul (0.3-0.9); MONOCYTES % 11.2 % (0.0-11.0); NEUTROPHIL # 5.5 10^3/ul (1.6-7.5); NEUTROPHILS % 75.5 % (39.0-77.0); NUCLEATED RED BLOOD CELLS # 0.1 10^3/ul (0.0-0.0); NUCLEATED RED BLOOD CELLS% 1.1 /100WBC (0.0-0.0); PLATELET COUNT 53 10^3/UL (140-415); POSITIVE DIFF @See below; RED BLOOD COUNT 3.15 10^6/ul (4.70-6.10); RED CELL DISTRIBUTION WIDTH 19.3 % (11.5-14.5); WHITE BLOOD COUNT 7.3 10^3/ul (4.8-10.8)
--- NOTE | 2017-02-07 06:00 | PN ---
DATE: 02/06/2017 SUBJECTIVE DATA: Patient is awake, looks comfortable on vent, still on Cedrick-Synephrine drip but with significant decreased requirement for it. He follows simple commands. LABORATORY AND DIAGNOSTIC DATA: WBC 11. H and H 7.2 and 23, platelets 88,000, neutrophils 83.1. BUN 88, creatinine 2.54. INDWELLINGS: Endotracheal tube, NG tube, left upper extremity PICC line placed on January 19, right femoral Jesus Manuel. ANTIMICROBIALS: Patient was started on vancomycin and meropenem, day #3 today. PHYSICAL EXAMINATION: VITAL SIGNS: Temperature 98.8, pulse 64, respirations 22, blood pressure 100/63, saturation 100 on 45 FiO2. GENERAL: This is a fragile, well-developed, elderly man who is lethargic, arousable, in no distress. HEENT: Head atraumatic, normocephalic. Sclerae anicteric. Buccal mucosa dry. NECK: Supple. CHEST: Rise symmetrical. Breath sounds diminished at the bases. HEART: S1, S2. ABDOMEN: Soft, bowel sounds present. EXTREMITIES: With trace dependent edema. ASSESSMENT: 1. Septic shock. 2. Possible aspiration pneumonia. 3. Recurrent respiratory failure. 4. West Nile virus encephalitis. 5. Acute on chronic kidney disease. 6. History of Abbi's granulomatosis and gout. 7. Probable sinusitis and mastoiditis as per CT of the brain. PLAN: Patient remains clinically stable, more awake. Cedrick- Synephrine is being titrated down pending sputum cultures. Blood and urine culture since February 04 negative. Continue broad- spectrum antibiotics. Dictated By: Giancarlo Hodges NP /eladio/alyssia /Document#: [id number]
[2017-02-07 06:11] LABS: INR 0.8; PROTIME 11.1 Sec (12.2-14.2); PT RATIO 0.9
[2017-02-07 06:12] LABS: MAGNESIUM 1.8 mg/dl (1.7-2.5); PHOSPHORUS 3.7 mg/dl (2.5-4.9)
[2017-02-07 06:13] LABS: CALCIUM 8.7 mg/dl (8.4-10.2); CREATININE 1.87 mg/dl (0.61-1.24); POTASSIUM 3.8 mmol/L (3.5-5.1)
[2017-02-07] MEDS: LANSOPRAZOLE 30 MG CAP NGT SCH (07:01)
[2017-02-07] MEDS: DOCUSATE SODIUM 10 MG/ML (10ML CUP) NGT SCH ×3 (07:56→20:56)
[2017-02-07] MEDS: POLYETHYLENE GLYCOL 17 GM PACKET PO SCH (07:56)
--- NOTE | 2017-02-07 08:38 | PN ---
DATE: 02/07/2017 SUBJECTIVE DATA: The patient is critically ill. No other events noted. OBJECTIVE DATA: VITAL SIGNS: Blood pressure is 140/69, respirations 20, pulse 92, temperature 98.2. HEENT: Head is normocephalic. NECK: Supple. HEART: Regular rate. LUNGS: Diminished breath sounds at the base. ABDOMEN: Soft, nontender to palpation. No rebound or guarding. EXTREMITIES: Negative for clubbing, cyanosis. Positive edema. DERMATOLOGIC: No rashes. MUSCULOSKELETAL: No joint effusion. NEUROLOGIC: No change in exam. MEDICATIONS: Reviewed. LABORATORY AND DIAGNOSTIC DATA: Shows white count 7.3, hemoglobin 8.9, hematocrit 27.9, platelet count is 53. Sodium 134, BUN 62, creatinine 1.87. ASSESSMENT AND PLAN: 1. Nonoliguric acute kidney injury on top of chronic kidney disease with previous baseline creatinine 1.7-2.0 mg/dL. Etiology of acute kidney injury secondary to acute tubular necrosis. The patient is currently dialysis dependent. We will monitor for signs of recovery. 2. Hyponatremia, improving. 3. Anemia. Monitor H and H levels. Give Epogen as needed. 4. Hypokalemia, resolved. 5. Mineral bone disorder. Monitor calcium and phosphorus levels. 6. Hypomagnesemia secondary acute kidney injury. Continue to monitor. 7. Ventilatory-dependent respiratory failure. Vent settings, ABGs reviewed. Continue to monitor. Follow up Pulmonary. 8. Encephalitis secondary to West Nile. Continue current medical management. Follow up with Neurology. 9. History of Abbi's granulomatosis, status post Rituxan. Follow up with Rheumatology. 10. Gastrointestinal and deep venous thrombosis prophylaxis. Dictated By: Jim Sierra DO /eladio/eliza /Document#: [id number]
[2017-02-07] MEDS: FEBUXOSTAT 40 MG TABLET PO SCH (08:42)
[2017-02-07] MEDS: NICOTINE (14 MG/24 HR) PATCH TRANSDERM SCH (08:43)
[2017-02-07] MEDS: DEXAMETHASONE 4 MG/ML 1 ML INJ IV SCH (08:43)
[2017-02-07] MEDS: PROPOFOL 100 ML IV SCH ×2 (10:29→20:56)
--- NOTE | 2017-02-07 10:58 | CONS ---
Date/Time of Note Date/Time of Note DATE: 02/07/17 TIME: 10:54 Assessment/Plan Assessment/Plan Additional Assessment/Plan Ventilator setting; AC of 14, tidal volume 500, PEEP of 5, 30% FiO2. Patient is currently on propofol at 30 mics per kilogram per minute. Assessment and recommendations; 1. Patient admitted with respiratory failure due to meningoencephalitis. 2. Chronic renal failure, on hemodialysis. 3. History of Abbi's granulomatosis. 4. History of chronic immunosuppression. 5. Anemia and severe thrombocytopenia. 6. History of lung cancer. Continue current treatment. Patient will need to have a tracheostomy and G- tube placed. Prognosis is guarded. Consultation Date/Type/Reason Admit Date/Time Jan 17, 2017 at 17:33 Type of Consultation: Pulmonary/critical care 24 HR Interval Summary Free Text/Dictation Patient's condition remains critical. Patient has to be sedated continuously because of episodes of agitation. Patient has been unable to be weaned off from ventilator despite numerous attempts. Patient however has remained hemodynamically stable. General exam; elderly male, orally intubated, sedated, currently in no distress. Exam/Review of Systems Vital Signs Vitals Vital Signs Date Time Temp Pulse Resp B/P Pulse Ox O2 Delivery O2 Flow Rate FiO2 02/07/17 09:30 89 12 87/58 98 02/07/17 09:17 40 02/07/17 07:45 99.2 02/07/17 07:00 Mechanical Ventilator 02/04/17 05:14 3.0 Intake and Output 02/06/17 02/06/17 02/07/17 15:00 23:00 07:00 Intake Total 928.0 ml 1455.955 ml 904.665 ml Output Total 2825 ml 210 ml 545 ml Balance -1897.0 ml 1245.955 ml 359.665 ml Exam HEENT exam; supple neck, no JVD. No lymphadenopathy. Midline trachea. No thyromegaly. Orally intubated. Patient has fair dentition. Pupils are small bilaterally. No neck masses. Chest exam; clear to auscultation. S1-S2 audible, no murmurs. Regular rhythm. Abdomen exam; soft, bowel sounds audible. No organomegaly. Extremity exam; no edema. Pulses 1+ bilaterally. GUEST ROOM INSPECTOR exam; patient is sedated. Results Result Diagram: 02/07/17 0430 02/07/17 0430 Results 24 hrs Laboratory Tests Test 02/06/17 11:36 02/06/17 18:21 02/06/17 21:22 02/07/17 01:20 Bedside Glucose 183 184 132 140 Test 02/07/17 04:30 02/07/17 05:21 02/07/17 05:34 02/07/17 07:37 White Blood Count 7.3 # Red Blood Count 3.15 #L Hemoglobin 8.9 #L Hematocrit 27.9 #L Mean Corpuscular Volume 88.6 Mean Corpuscular Hemoglobin 28.3 L Mean Corpuscular Hemoglobin Concent 31.9 L Red Cell Distribution Width 19.3 H Platelet Count 53 #L Mean Platelet Volume Neutrophils % 75.5 Lymphocytes % 5.7 L Monocytes % 11.2 H Eosinophils % 6.4 Basophils % 0.1 Nucleated Red Blood Cells % 1.1 H Neutrophils # 5.5 Lymphocytes # 0.4 L Monocytes # 0.8 Eosinophils # 0.5 Basophils # 0.0 Nucleated Red Blood Cells # 0.1 H Prothrombin Time 11.1 L Prothrombin Time Ratio 0.9 INR International Normalized Ratio 0.80 Sodium Level 134 L Potassium Level 3.8 Chloride Level 103 Carbon Dioxide Level 28 Anion Gap 7 L Blood Urea Nitrogen 62 H Creatinine 1.87 H Glucose Level 168 Calcium Level 8.7 Phosphorus Level 3.7 Magnesium Level 1.8 Bedside Glucose 189 134 Lab Scanned Report BLOOD TRANSFUSION Medications Medications Current Medications Ondansetron HCl (Zofran Inj) 4 mg Q6H PRN IV NAUSEA AND/OR VOMITING; Start 01/17 at 14:30 Morphine Sulfate (morphine) 2 mg Q4H PRN IV SEVERE PAIN LEVEL 7-10 Last administered on 01/31/17 07:22; Admin Dose 2 MG; Start 01/17/17 at 14:30 Docusate Sodium (Colace) 100 mg Q12H PRN PO CONSTIPATION; Start 01/17/17 at 14: 30 Febuxostat (Uloric) 40 mg DAILY PO Last administered on 02/07/17 08:42; Admin Dose 40 MG; Start 01/18/17 at 09:00 Diphenhydramine HCl (Benadryl) 25 mg Q4H PRN IV CHILLS; Start 01/17/17 at 18:30 Nicotine 1 patch 1 patch DAILY TRANSDERM Last administered on 02/07/17 08:43; Admin Dose 1 PATCH; Start 01/18/17 at 10:30 Acetaminophen (Ofirmev 1000mg/ 100ml Iv) 100 ml @ 400 mls/hr Q4 PRN IVPB FEVER GREATER THAN 100.6 Last administered on 02/04/17 12:00; Admin Dose 400 MLS/HR; Start 01/19/17 at 00:30 Hydralazine HCl (Apresoline) 10 mg Q4H PRN IV hypertension Last administered on 01/27/17 22:20; Admin Dose 10 MG; Start 01/19/17 at 01:00 Miscellaneous Information 1 ea NOTE XX ; Start 01/19/17 at 09:00 Glucose (Glutose) 15 gm Q15M PRN PO DECREASED GLUCOSE; Start 01/19/17 at 09:00 Glucose (Glutose) 22.5 gm Q15M PRN PO DECREASED GLUCOSE; Start 01/19/17 at 09:00 Dextrose (D50w Syringe) 25 ml Q15M PRN IV DECREASED GLUCOSE; Start 01/19/17 at 09:00 Dextrose (D50w Syringe) 50 ml Q15M PRN IV DECREASED GLUCOSE; Start 01/19/17 at 09:00 Glucagon (Glucagen) 1 mg Q15M PRN IM DECREASED GLUCOSE; Start 01/19/17 at 09:00 Glucose (Glutose) 15 gm Q15M PRN BUCCAL DECREASED GLUCOSE; Start 01/19/17 at 09: 00 IV Flush (NS 10 ml) 10 ml PRN PRN IV FLUSH LINE; Start 01/19/17 at 12:00 Diphenhydramine HCl (Benadryl Liquid Cup) 25 mg QHS PRN NGT ITCHING; Start 01/19 at 21:00 Hydralazine HCl (Apresoline) 25 mg Q4H PRN NGT hypertension Last administered on 01/25/17 12:17; Admin Dose 25 MG; Start 01/19/17 at 20:30 Acetaminophen/ Hydrocodone Bitart ([place] (5/325)) 1 tab Q6H PRN NGT MODERATE PAIN LEVEL 4-6; Start 01/20/17 at 02:30 Magnesium Hydroxide (Milk Of Mag) 30 ml DAILY PRN NGT CONSTIPATION; Start at 20:30 Acetaminophen (Tylenol Liquid) 1,000 mg Q4H PRN NGT PAIN AND OR ELEVATED TEMP; Start 01/19/17 at 20:30; Status Future Hold Docusate Sodium (Colace Liquid Cup) 100 mg TID NGT Last administered on 11:55; Admin Dose 100 MG; Start 01/19/17 at 21:00 Lorazepam (Ativan) 2 mg Q6H PRN IV before LP and MRI Last administered on 11:28; Admin Dose 2 MG; Start 01/20/17 at 00:00 Lansoprazole 30 mg 30 mg DAILY@06 NGT Last administered on 02/07/17 07:01; Admin Dose 30 MG; Start 01/21/17 at 06:00 Norepinephrine/ Dextrose (Levophed/D5W) 500 ml @ 1.87 mls/hr TITRATE IV ; Start 01/20/17 at 17:30 Hydralazine HCl (Apresoline) 50 mg TID NGT Last administered on 02/03/17 20:31 ; Admin Dose 50 MG; Start 01/26/17 at 21:00 Diagnostic Test (Pha) (Accu-Chek) 1 ea 02 XX Last administered on 02/06/17 02: 20; Admin Dose 1 EA; Start 02/01/17 at 02:00 Insulin Aspart (Novolog Insulin Pen) NOVOLOG *MODERATE* ALGORI... Q4 SC Last administered on 02/07/17 05:25; Admin Dose 4 UNIT; Start 01/31/17 at 21:00 Epoetin Efrain (Epogen (Neserd)) 6,000 units MoWeFr@17 SC Last administered on 17:03; Admin Dose 6,000 UNITS; Start 02/01/17 at 17:00 Senna (Senokot) 1 tab BID PRN PO CONSTIPATION; Start 02/01/17 at 17:00 Polyethylene Glycol (Miralax) 17 gm DAILY PO Last administered on 02/06/17 09: 29; Admin Dose 17 GM; Start 02/02/17 at 09:00 Atropine Sulfate 1 mg 1 mg PRN PRN IV DECREASED HEART RATE; Start 02/02/17 at 02:00 Dextrose 1,000 ml @ 50 mls/hr Q20H IV Last administered on 02/06/17 20:28; Admin Dose 50 MLS/HR; Start 02/04/17 at 08:00 Propofol 100 ml @ 2.295 mls/ hr Q12H IV Last administered on 02/07/17 10:29; Admin Dose 9.18 MLS/HR; Start 02/04/17 at 08:30 Phenylephrine HCl 40 mg/Dextrose 500 ml @ 75 mls/hr TITRATE IV Last administered on 02/06/17 01:19; Admin Dose 22.5 MLS/HR; Start 02/04/17 at 09:00 Meropenem/Sodium Chloride (Merrem 500mg/50 ml(Pmx)) 50 ml @ 100 mls/hr Q24H IVPB Last administered on 02/06/17 18:24; Admin Dose 100 MLS/HR; Start at 17:00 Dexamethasone (Decadron) 2 mg DAILY IV Last administered on 02/07/17 08:43; Admin Dose 2 MG; Start 02/06/17 at 09:00 Acetaminophen (Tylenol Tab) 650 mg ONCE PO Last administered on 02/06/17 19:13 ; Admin Dose 650 MG; Start 02/06/17 at 13:30; Stop 02/07/17 at 13:29 RATNA MORENO Feb 07, 2017 10:58
--- NOTE | 2017-02-07 13:55 | PN ---
DATE: 02/07/2017 SUBJECTIVE DATA: Nicho, remains on propofol drip, he is minimally responsive on that drip. Otherwise, rhythm remains stable. OBJECTIVE DATA: PHYSICAL EXAMINATION: VITAL SIGNS: Pulse is 96, blood pressure 119/69. NECK: No jugular venous distention. He remains intubated. ABDOMEN: Soft. LUNGS: Clear. EXTREMITIES: Reveal no edema. LABORATORY: Reviewed. White count improved to 7.3, hematocrit 27.9, platelet count 53,000. Sodium 134, BUN 62, creatinine 1.8. MEDICATION: Dexamethasone, Meropenem, vancomycin, Cedrick- Synephrine, Propofol, Erythropoietin, insulin. IMPRESSION: 1. Meningitis and encephalitis. 2. History of Abbi's granulomatosis and chronic immunosuppression, as well as renal failure on hemodialysis. PLAN: No further poses. Continue management as per primary team. Dictated By: Edgar Atkinson MD /[email or web address] /Document#: [id number]
--- NOTE | 2017-02-07 14:06 | PN ---
DATE: 02/07/2017 SUBJECTIVE DATA: No acute events overnight. No fevers. The patient is intubated and sedated, off pressors. He opens eyes and somewhat is responsive, however, it is difficult to assess to what extent. Temperature 97.7, pulse 96, respirations 22, blood pressure 119/69. Saturation 100 on vent. LABORATORY AND DIAGNOSTIC DATA: WBC 7.3, H and H 8.9 and 27.9, and platelets 53,000. Neutrophils 75.5. BUN 62, creatinine 1.87. MICROBIOLOGY: Endotracheal aspirate grew normal respiratory berna. INDWELLINGS: Endotracheal tube, NG-tube, left upper extremity PICC line placed on 01/19/2017. [place] catheter and right femoral Jesus Manuel catheter. ANTIMICROBIALS: The patient is on IV vancomycin and meropenem. OBJECTIVE DATA: PHYSICAL EXAMINATION: GENERAL: This is a chronically ill-appearing, well developed, elderly man who is intubated, in no distress. HEENT: Head atraumatic, normocephalic. Sclerae anicteric. Buccal mucosa dry. NECK: Supple. CHEST: Rise symmetrical. Breath sounds diminished at bases. HEART: S1, S2. ABDOMEN: Soft, bowel sounds present. EXTREMITIES: With bilateral edema, dependent 1+. SKIN: No jaundice. No cyanosis. Again, positive for generalized dependent edema. ASSESSMENT: 1. Status post-septic shock. 2. 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 3. Acute respiratory failure, possibly aspiration event. 4. Acute on chronic kidney disease, on hemodialysis now. 5. History of Abbi's granulomatosis. 6. Probable sinusitis and mastoiditis as per CT scan of the brain. PLAN: The patient remains hemodynamically stable, off pressors. He was restarted on antibiotics 4 days ago. So far, cultures have been negative. He is also on steroid taper. Followed by multiple consultants. Continue on current regimen for now. Possible trach and PEG. Dictated By: Giancarlo Hodges NP /[email or web address] /Document#: [id number] [email or web address]
--- NOTE | 2017-02-07 15:00 | CONS ---
DATE OF ADMISSION: 01/17/2017 DATE OF CONSULTATION: REQUESTING PHYSICIANS: Gurwinder Triplett MD and . Thank you for the referral. REASON FOR CONSULTATION: Placement of G-tube. HISTORY OF PRESENT ILLNESS: The patient is a 66-year-old male with a history of Jc's granulomatosis with some renal involvement, history of early stage lung cancer, for which he had a resection 9 years ago, history of hypertension, who comes to the hospital with a fever of 1 to 2 weeks duration with profound weakness. 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 He is intubated, GI consult is called in for placement of G-tube. He may need also tracheostomy, could not be weaned off the vent. The patient's kidney function deteriorated and he required hemodialysis. PAST MEDICAL HISTORY: Abbi's granulomatosis, chronic kidney disease, hypertension, gout, and lung resection. ALLERGIES: NONE. MEDICATIONS: All reviewed. PHYSICAL EXAMINATION: GENERAL: Patient is on a vent. HEENT: He opens his eyes, but does not follow the command. HEART: No murmur, gallop, or click. ABDOMEN: Benign. EXTREMITIES: No edema. NEUROLOGIC: Does not follow the command, keeps eyes open. LABORATORY: WBC has dropped down to 7.3 from 11, hematocrit is stable. The patient got 1 unit of packed RBC. BUN is 62 and creatinine is 1.87. He is on dialysis. Alkaline phosphatase is mildly elevated at 125 and SGPT is 80. Albumin is 2.5. Chest x- ray, which was done yesterday, showed clear lungs. IMPRESSION: 1. Status post septic shock. 2. Jc's granulomatosis. 3. History of lung cancer, for which he had a dissection. 4. 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 5. Renal failure on hemodialysis. 6. Respiratory failure. 7. Dysphagia. 8. Anemia. PLAN: At this point is to continue all the supportive care. Will proceed with the placement of G-tube tomorrow. Dictated By: Mio Grant MD /eladio/la /Document#: [id number] CC: Gurwinder Triplett MD;*EndCC*
[2017-02-07] MEDS: MEROPENEM 500MG/50 ML (PMX) 50 ML IVPB SCH (17:24)
[2017-02-07] MEDS: DEXTROSE 5% 1,000 ML IV SCH (17:24)
[2017-02-08] VITALS (83 sets, daily range): BP systolic 81–144; BP diastolic 57–105; PULSE 61–84; RESP 0–26
[2017-02-08] MEDS: INSULIN ASPART [NOVOLOG] 3 ML PEN SC SCH ×6 (01:00→20:50)
[2017-02-08] MEDS: ACCU-CHEK XX SCH (02:02)
[2017-02-08] MEDS: PROPOFOL 100 ML IV SCH ×3 (04:41→17:47)
[2017-02-08 05:26] LABS: ABNORMAL IP MESSAGE 1; BASOPHILS % 0.1 % (0.0-2.0); EOSINOPHILS # 0.6 10^3/ul (0.0-0.5); EOSINOPHILS % 7.8 % (0.0-7.0); HEMATOCRIT 28.6 % (42.0-52.0); HEMOGLOBIN 9.3 g/dl (14.0-18.0); LYMPHOCYTES # 0.6 10^3/ul (0.8-2.9); LYMPHOCYTES % 7.8 % (15.0-51.0); MEAN CORPUSCULAR HEMOGLOBIN 28.8 pg (29.0-33.0); MEAN CORPUSCULAR HGB CONC 32.5 g/dl (32.0-37.0); MEAN CORPUSCULAR VOLUME 88.5 fl (82.0-101.0); MONOCYTES % 13.5 % (0.0-11.0); NEUTROPHIL # 5.2 10^3/ul (1.6-7.5); NEUTROPHILS % 69.7 % (39.0-77.0); NUCLEATED RED BLOOD CELLS # 0.1 10^3/ul (0.0-0.0); NUCLEATED RED BLOOD CELLS% 0.8 /100WBC (0.0-0.0); PLATELET COUNT 54 10^3/UL (140-415); POSITIVE DIFF @See below; RED BLOOD COUNT 3.23 10^6/ul (4.70-6.10); WHITE BLOOD COUNT 7.5 10^3/ul (4.8-10.8)
[2017-02-08 06:01] LABS: INR 0.84; PROTIME 11.5 Sec (12.2-14.2); PT RATIO 0.9
[2017-02-08 06:02] LABS: PARTIAL THROMBOPLASTIN TIME 31.4 Sec (25.0-35.0)
[2017-02-08 06:10] LABS: CALCIUM 8.6 mg/dl (8.4-10.2); CREATININE 2.15 mg/dl (0.61-1.24); MAGNESIUM 1.9 mg/dl (1.7-2.5); PHOSPHORUS 4.4 mg/dl (2.5-4.9); POTASSIUM 4.3 mmol/L (3.5-5.1)
[2017-02-08] MEDS: LANSOPRAZOLE 30 MG CAP NGT SCH (06:35)
--- NOTE | 2017-02-08 07:08 | PN ---
DATE: 02/07/2017 SUBJECTIVE DATA: The patient is seen, remains on propofol, now off Cedrick-Synephrine. The patient's white count is now normal. Hemoglobin and hematocrit corrected from hemoglobin of 7.2 to 8.9 status post 1 unit of PRBC. The patient is pending trach/PEG and change of femoral hemodialysis line. Case discussed with Dr. Grant and requested Dr. Mendez to do the above vascular procedure and the trach procedure. OBJECTIVE DATA: VITAL SIGNS: Temperature 99.2 T-max off pressors, blood pressure 102/65, 30 percent FiO2. The patient remains on propofol. HEENT: Patient's eyes are moving, slightly following commands, raising his arm. CARDIAC: S1, S2. LUNGS: Mild rhonchi bilaterally. ABDOMEN: Soft. EXTREMITIES: Trace to +1 edema throughout. LABORATORY AND DIAGNOSTIC DATA: White count 7.3, hemoglobin 8.9, hematocrit 28, platelet count is dropping and now 53,000. Neutrophils 76 percent, eosinophils 6 percent, monocytes 11 percent. Chemistry: Sodium 134, potassium 3.8, chloride 103, bicarbonate 28, BUN 62, creatinine 1.87, glucose 168. Last glucose was 192. MEDICATIONS: Include: 1. Tylenol 650 mg x1. 2. Decadron 20 mg IV daily. 3. Merrem IV dose per pharmacy. 4. Vancomycin dose per pharmacy. 5. Phenylephrine. 6. Currently off propofol, as directed. 7. MiraLAX 17 g daily. 8. Atrovent p.r.n. 9. Epogen 6000 units every Wednesday, Wednesday, and Wednesday. 10. Senna 1 tab b.i.d. p.r.n. 11. Insulin aspart per sliding scale. 12. Hydralazine 50 mg t.i.d. 13. Prevacid mg daily. 14. Marlin p.r.n. 15. Ativan p.r.n. 16. Benadryl p.r.n. 17. Colace 100 t.i.d. 18. Hydralazine 25 mg p.r.n. 19. Hypoglycemia protocol as directed. 20. Nicotine patch daily. 21. Uloric 40 mg daily. 22. Zofran p.r.n. 23. Morphine p.r.n. 24. Colace p.r.n. ASSESSMENT AND PLAN: This is a 66-year-old male with history of Abbi granulomatosis, chronic kidney disease (CKD) who presented with 1 week fever, decreased p.o. intake who was found to have progressive worsening encephalopathy diagnosed with West Nile encephalitis. 1. Respiratory. Continue full ventilatory support. The patient was extubated once, but needed to be reintubated secondary to ongoing encephalopathy and unable to protect his airway. 2. Cardiovascular. Off blood thinners secondary to thrombocytopenia. Status post 1 unit of PRBC. Currently off pressors. 3. Gastrointestinal. Status post 1 unit PRBC. No evidence of active bleeding. Monitor hemoglobin and hematocrit. 4. Continue Epogen as well for his anemia as the patient has anemia of chronic disease. 5. Acute on chronic renal insufficiency. Status post dialysis yesterday. Continue to monitor. Hopefully, soon we can hold dialysis and see if there is renal recovery. 6. Hyperglycemia. Glucose level in the 100s. 7. Infectious disease. Currently on broad-spectrum antibiotic, on Merrem and vancomycin for possible pulmonary infection versus other. White count is now normal. Patient is afebrile. 8. Encephalopathy secondary to West Nile virus. Continue to monitor neurologic status closely. 9. Plan for trach and PEG and change of the right femur Jesus Manuel catheter. Dr. Grant, Dr. Mendez were consulted. We will follow. Dictated By: Gurwinder Triplett MD /eladio/[facility] /Document#: [id number]
[2017-02-08] MEDS: DOCUSATE SODIUM 10 MG/ML (10ML CUP) NGT SCH ×3 (07:54→20:48)
[2017-02-08] MEDS: POLYETHYLENE GLYCOL 17 GM PACKET PO SCH (07:55)
[2017-02-08] MEDS: DEXAMETHASONE 4 MG/ML 1 ML INJ IV SCH (08:09)
[2017-02-08] MEDS: NICOTINE (14 MG/24 HR) PATCH TRANSDERM SCH (08:09)
[2017-02-08] MEDS: FEBUXOSTAT 40 MG TABLET PO SCH (08:09)
--- NOTE | 2017-02-08 09:24 | PN ---
DATE: 02/08/2017 SUBJECTIVE DATA: The patient is stable. No events overnight. No fevers, chills, nausea, vomiting. The patient is pending possible trach and PEG. OBJECTIVE DATA: VITAL SIGNS: Blood pressure is 105/71, respirations 18, pulse 74, temp 98.6. HEENT: Head is normocephalic. NECK: Supple. HEART: Regular rate. LUNGS: Diminished breath sounds at the base. ABDOMEN: Soft, nontender to palpation. No rebound or guarding. EXTREMITIES: Negative for clubbing, cyanosis. Trace edema. DERMATOLOGIC: No rashes. MUSCULOSKELETAL: No joint effusion. NEUROLOGIC: No change in exam. MEDICATIONS: Reviewed. LABORATORY AND DIAGNOSTIC DATA: Shows a white count 7.5, hemoglobin 9.3, hematocrit 28.6, platelet count is 54,000. Sodium 133, BUN 74, creatinine 2.15. Cultures have been reviewed. ASSESSMENT AND PLAN: 1. Nonoliguric acute kidney injury on top of chronic kidney disease with previous baseline creatinine 1.7-2.0 mg/dL. Etiology of acute kidney injury secondary to acute tubular necrosis. The patient has had 4 sessions of hemodialysis. Plan is to hold dialysis at this time and see if there is any evidence of renal recovery. 2. Hyponatremia, improving. 3. Anemia. Monitor hemoglobin and hematocrit levels. Continue Epogen as needed. 4. Hypokalemia, resolved. 5. Mineral bone disorder. Monitor calcium and phosphorus levels. 6. Hypomagnesemia secondary acute kidney injury. Continue to monitor. 7. Ventilatory-dependent respiratory failure. Ventilator settings and arterial blood gases reviewed. The patient is pending possible trach placement. 8. Encephalitis secondary to West Nile. The patient is status post-IVIG. Continue medical management. Follow up with Neurology. 9. History of Abbi's granulomatosis, status post-Rituxan. 10. Gastrointestinal and deep venous thrombosis prophylaxis. Dictated By: Jim Sierra DO /eladio/krystina /Document#: [id number]
--- NOTE | 2017-02-08 10:53 | CONS ---
Date/Time of Note Date/Time of Note DATE: 02/08/17 TIME: 10:52 Consult Date/Type/Reason Admit Date/Time Jan 17, 2017 at 17:33 Type of Consultation: Pulmonary/critical care Subjective Remains intubated sedated on mechanical ventilation. Pending PEG tube placement today. Objective Vital Signs Date Time Temp Pulse Resp B/P Pulse Ox O2 Delivery O2 Flow Rate FiO2 02/08/17 09:30 75 15 114/69 100 02/08/17 08:00 30 02/08/17 07:00 98.2 02/08/17 06:30 Mechanical Ventilator Intake and Output 02/07/17 02/07/17 02/08/17 15:00 23:00 07:00 Intake Total 1153 ml 897 ml 589 ml Output Total 570 ml 750 ml 525 ml Balance 583 ml 147 ml 64 ml Exam PHYSICAL EXAMINATION GENERAL: Elderly gentleman, intubated on mechanical ventilation, opens eyes and appears somewhat agitated. Orally intubated. VITAL SIGNS: see below. HEENT: Pupils equal, round, and reactive to light. CARDIAC: S1, S2, no added sounds or murmurs. CHEST: Diminished air entry bilaterally. ABDOMEN: Mildly distended. Bowel sounds present no guarding or rebound EXTREMITIES: No cyanosis, clubbing edema +1 NEUROLOGIC: Generalized weakness Results/Medications Result Diagram: 02/08/17 0440 02/08/17 0440 Results 24 hrs Laboratory Tests Test 02/07/17 11:10 02/07/17 17:23 02/07/17 20:59 02/08/17 02:02 Bedside Glucose 192 138 153 116 Test 02/08/17 04:40 02/08/17 07:30 White Blood Count 7.5 Red Blood Count 3.23 L Hemoglobin 9.3 L Hematocrit 28.6 L Mean Corpuscular Volume 88.5 Mean Corpuscular Hemoglobin 28.8 L Mean Corpuscular Hemoglobin Concent 32.5 Red Cell Distribution Width 19.0 H Platelet Count 54 L Mean Platelet Volume Neutrophils % 69.7 Lymphocytes % 7.8 L Monocytes % 13.5 H Eosinophils % 7.8 H Basophils % 0.1 Nucleated Red Blood Cells % 0.8 H Neutrophils # 5.2 Lymphocytes # 0.6 L Monocytes # 1.0 H Eosinophils # 0.6 H Basophils # 0.0 Nucleated Red Blood Cells # 0.1 H Prothrombin Time 11.5 L Prothrombin Time Ratio 0.9 INR International Normalized Ratio 0.84 Activated Partial Thromboplast Time 31.4 Sodium Level 133 L Potassium Level 4.3 Chloride Level 102 Carbon Dioxide Level 27 Anion Gap 8 Blood Urea Nitrogen 72 H Creatinine 2.15 H Glucose Level 114 # Bedside Glucose 118 122 Calcium Level 8.6 Phosphorus Level 4.4 Magnesium Level 1.9 Medications Current Medications Ondansetron HCl (Zofran Inj) 4 mg Q6H PRN IV NAUSEA AND/OR VOMITING; Start 01/17 at 14:30 Morphine Sulfate (morphine) 2 mg Q4H PRN IV SEVERE PAIN LEVEL 7-10 Last administered on 01/31/17 07:22; Admin Dose 2 MG; Start 01/17/17 at 14:30 Docusate Sodium (Colace) 100 mg Q12H PRN PO CONSTIPATION; Start 01/17/17 at 14: 30 Febuxostat (Uloric) 40 mg DAILY PO Last administered on 02/08/17 08:09; Admin Dose 40 MG; Start 01/18/17 at 09:00 Diphenhydramine HCl (Benadryl) 25 mg Q4H PRN IV CHILLS; Start 01/17/17 at 18:30 Nicotine 1 patch 1 patch DAILY TRANSDERM Last administered on 02/08/17 08:09; Admin Dose 1 PATCH; Start 01/18/17 at 10:30 Acetaminophen (Ofirmev 1000mg/ 100ml Iv) 100 ml @ 400 mls/hr Q4 PRN IVPB FEVER GREATER THAN 100.6 Last administered on 02/04/17 12:00; Admin Dose 400 MLS/HR; Start 01/19/17 at 00:30 Hydralazine HCl (Apresoline) 10 mg Q4H PRN IV hypertension Last administered on 01/27/17 22:20; Admin Dose 10 MG; Start 01/19/17 at 01:00 Miscellaneous Information 1 ea NOTE XX ; Start 01/19/17 at 09:00 Glucose (Glutose) 15 gm Q15M PRN PO DECREASED GLUCOSE; Start 01/19/17 at 09:00 Glucose (Glutose) 22.5 gm Q15M PRN PO DECREASED GLUCOSE; Start 01/19/17 at 09:00 Dextrose (D50w Syringe) 25 ml Q15M PRN IV DECREASED GLUCOSE; Start 01/19/17 at 09:00 Dextrose (D50w Syringe) 50 ml Q15M PRN IV DECREASED GLUCOSE; Start 01/19/17 at 09:00 Glucagon (Glucagen) 1 mg Q15M PRN IM DECREASED GLUCOSE; Start 01/19/17 at 09:00 Glucose (Glutose) 15 gm Q15M PRN BUCCAL DECREASED GLUCOSE; Start 01/19/17 at 09: 00 IV Flush (NS 10 ml) 10 ml PRN PRN IV FLUSH LINE; Start 01/19/17 at 12:00 Diphenhydramine HCl (Benadryl Liquid Cup) 25 mg QHS PRN NGT ITCHING; Start 01/19 at 21:00 Hydralazine HCl (Apresoline) 25 mg Q4H PRN NGT hypertension Last administered on 01/25/17 12:17; Admin Dose 25 MG; Start 01/19/17 at 20:30 Acetaminophen/ Hydrocodone Bitart (Central (5/325)) 1 tab Q6H PRN NGT MODERATE PAIN LEVEL 4-6; Start 01/20/17 at 02:30 Magnesium Hydroxide (Milk Of Mag) 30 ml DAILY PRN NGT CONSTIPATION; Start at 20:30 Acetaminophen (Tylenol Liquid) 1,000 mg Q4H PRN NGT PAIN AND OR ELEVATED TEMP; Start 01/19/17 at 20:30; Status Future Hold Docusate Sodium (Colace Liquid Cup) 100 mg TID NGT Last administered on 11:55; Admin Dose 100 MG; Start 01/19/17 at 21:00 Lorazepam (Ativan) 2 mg Q6H PRN IV before LP and MRI Last administered on 11:28; Admin Dose 2 MG; Start 01/20/17 at 00:00 Lansoprazole 30 mg 30 mg DAILY@06 NGT Last administered on 02/08/17 06:35; Admin Dose 30 MG; Start 01/21/17 at 06:00 Norepinephrine/ Dextrose (Levophed/D5W) 500 ml @ 1.87 mls/hr TITRATE IV ; Start 01/20/17 at 17:30 Hydralazine HCl (Apresoline) 50 mg TID NGT Last administered on 02/03/17 20:31 ; Admin Dose 50 MG; Start 01/26/17 at 21:00 Diagnostic Test (Pha) (Accu-Chek) 1 ea 02 XX Last administered on 02/08/17 02: 02; Admin Dose 1 EA; Start 02/01/17 at 02:00 Insulin Aspart (Novolog Insulin Pen) NOVOLOG *MODERATE* ALGORI... Q4 SC Last administered on 02/07/17 21:02; Admin Dose 2 UNIT; Start 01/31/17 at 21:00 Epoetin Efrain (Epogen (Neserd)) 6,000 units MoWeFr@17 SC Last administered on 17:03; Admin Dose 6,000 UNITS; Start 02/01/17 at 17:00 Senna (Senokot) 1 tab BID PRN PO CONSTIPATION; Start 02/01/17 at 17:00 Polyethylene Glycol (Miralax) 17 gm DAILY PO Last administered on 02/06/17 09: 29; Admin Dose 17 GM; Start 02/02/17 at 09:00 Atropine Sulfate 1 mg 1 mg PRN PRN IV DECREASED HEART RATE; Start 02/02/17 at 02:00 Dextrose 1,000 ml @ 50 mls/hr Q20H IV Last administered on 02/07/17 17:24; Admin Dose 50 MLS/HR; Start 02/04/17 at 08:00 Propofol 100 ml @ 2.295 mls/ hr Q12H IV Last administered on 02/08/17 04:41; Admin Dose 11.475 MLS/HR; Start 02/04/17 at 08:30 Phenylephrine HCl 40 mg/Dextrose 500 ml @ 75 mls/hr TITRATE IV Last administered on 02/06/17 01:19; Admin Dose 22.5 MLS/HR; Start 02/04/17 at 09:00 Meropenem/Sodium Chloride (Merrem 500mg/50 ml(Pmx)) 50 ml @ 100 mls/hr Q24H IVPB Last administered on 02/07/17 17:24; Admin Dose 100 MLS/HR; Start at 17:00 Dexamethasone (Decadron) 2 mg DAILY IV Last administered on 02/08/17 08:09; Admin Dose 2 MG; Start 02/06/17 at 09:00 Miscellaneous Information (*Rx Drug Level Order Reminder*) RANDOM VANCOMYCIN LEVEL 9... ONCE ONCE XX ; Start 02/09/17 at 05:00; Stop 02/09/17 at 05:01 Assessment/Plan Chief Complaint/Hosp Course IMPRESSION: 1. Hypoxemic respiratory failure requiring reintubation 2. 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 3. Renal insufficiency 4. Hx Lung Ca 5. Abbi granulomatosis. 6. Aspiration risk PLAN: 1. Patient unable to protect airway secretions. Will likely need tracheostomy and PEG tube. 2. Supportive care for West Nile virus 3. ID recs 4. DVT and GI prophylaxis. Continue current level of care. Critical care time 40 minutes. Problems: CAROL DÍAZ MD, [facility] Feb 08, 2017 10:53
[2017-02-08] MEDS ORDERED: LIDOCAINE 2% (SDV) 5 ML INJ ONE (11:35)
[2017-02-08] MEDS ORDERED: PROPOFOL 40 ML ONE (11:35)
[2017-02-08] MEDS ORDERED: PHENYLephrine (100 MCG/ML) 5ML SYG ONE (11:36)
[2017-02-08] MEDS ORDERED: CEFAZOLIN 1 GM/50 ML (PMX) 50 ML IVPB ONE (12:00)
[2017-02-08] MEDS ORDERED: EPHEDrine SULFATE 50 MG/5 ML SYG IV PRN (12:30)
[2017-02-08] MEDS ORDERED: METOCLOPRAMIDE 10 MG INJ IV PRN (12:30)
[2017-02-08] MEDS ORDERED: FENTAnyl 50 MCG/ML VIAL IV PRN ×3 (12:30)
[2017-02-08] MEDS ORDERED: ONDANSETRON 4 MG INJ IV PRN (12:30)
[2017-02-08] MEDS ORDERED: LABETALOL HCL 20MG INJ IV PRN (12:30)
--- NOTE | 2017-02-08 12:30 | OPPN ---
Date/Time of Note Date/Time of Note DATE: 02/08/17 TIME: 12:28 Proc Note GI Procedure Date 02/08/17 Pre-procedure Diagnosis Dysphagia Post-procedure Diagnosis Dysphagia Procedure Performed: Endoscopy Surgeon see signature line [employer] Counter Person none Anesthesia Type: MAC Tourniquet Time none EBL none Transfusion required none Grafts/Implants none Tubes/Drains none Complication(s) none Pt Condition post procedure: stable Indications: other (Dysphagia) Operative\Procedure Findings PEG Procedure Description See dictation SANJEEV CORTES MD Feb 08, 2017 12:30
--- NOTE | 2017-02-08 13:06 | PN ---
DATE: 02/08/2017 SUBJECTIVE DATA: The patient is a pending G-tube placement to be done soon. The patient is on propofol 24 mcg, resting comfortably. No acute events. The patient is also awaiting a trach and change of his hemodialysis femoral catheter. PHYSICAL EXAM: VITAL SIGNS: Temperature 98.2, pulse 73, respirations 13, blood pressure 116/74, saturation 100 percent, T-max is 99, patient is afebrile. GENERAL: Patient is in no acute distress. Resting comfortably. Patient is bed. HEART: S1, S2. LUNGS: Mild rhonchi at the bases. ABDOMEN: Soft, slightly distended. EXTREMITIES: +1 edema throughout, continuously moving all extremities. LABS: White count is 7.5, hemoglobin 9.2, hematocrit 29, platelet count is 54,000, neutrophil count 70 percent, monocytes 14 percent. Chemistry: Sodium is 133, potassium 4.3, chloride 102, bicarbonate 27, BUN 72, creatinine 2.15, glucose 114. Last glucose levels are 156, 120 and 118. The patient does have proteinuria documented 1.5 g 1 time less than 2.1 g at another time. Again stressed vital virus IgM and IgG were positive. Respiratory culture shows normal respiratory berna. MEDICATIONS: 1. Vancomycin dose per pharmacy. 2. Decadron 2 mg IV daily. 3. Merrem 1 gram IV every 24 hours. 4. MiraLax 17 g daily. 5. Atropine p.r.n. 6. Epogen 6000 every Wednesday, Wednesday. 7. Senna 1 tab b.i.d. p.r.n. 8. Accu-Chek q.a.c. q.h.s. 9. Hydralazine 50 t.i.d. 10. Prevacid 20 mg daily. 11. [place] p.r.n. 12. Ativan p.r.n. 13. Benadryl p.r.n. 14. Colace 100 t.i.d. 15. Hydralazine p.r.n. 16. Milk of magnesia p.r.n. 17. Hypoglycemia protocol as directed. 18. Nicotine patch 14 mg daily. 19. Duo-Neb p.r.n. 20. Atrovent p.r.n. 21. Uloric 40 mg daily 22. Benadryl p.r.n. 23. Zofran p.r.n. 24. Morphine and Colace p.r.n. ASSESSMENT AND PLAN: This is a 66-year-old male with history of Abbi granulomatosis, chronic kidney disease who initially presented with 1 week of fever, decreased p.o. intake and weakness. During his hospitalization, was noted to be progressively with worsening encephalopathy, ultimately was diagnosed with a West Nile encephalitis. 1. Respiratory, on full ventilatory support. This patient has failed extubation once as he continued to be encephalopathic. Plan for trach. Continue full ventilator support for now. 2. Cardiovascular. Off blood thinners secondary to thrombocytopenia. Hemoglobin and hematocrit is stable. Sequential compression devices for deep venous thrombosis prophylaxis are being provided. The blood pressure is now in the low normal side. May discontinue his blood pressure meds. 3. Gastrointestinal. Hemoglobin and hematocrit are stable. Continue Protonix. No evidence of active bleeding. 4. Thrombocytopenia. May be medication induced versus other. We will follow. Hold blood thinners. 5. Acute on chronic renal insufficiency. Status post dialysis 2 days ago. Continue to monitor the kidney function off dialysis. Further decision regarding further dialysis per Nephrology. 6. Hyperglycemia: Glucose levels are good this week. We are tapering off Decadron. 7. Infectious disease. The patient with West Nile encephalitis and possible hospital-acquired infection, on broad-spectrum antibiotic empirically with vancomycin and Merrem for possible aspiration pneumonia. 8. Encephalopathy secondary to West Nile virus. Will continue to monitor neural status closely. Status post Decadron for the brain edema. 9. Trach and PEG are pending. The PEG will be done today. Also change of Jesus Manuel catheter from the right femoral area to the upper chest is pending. Clinically stable. We will follow. Dictated By: Gurwinder Triplett MD /eladio/moraima /Document#: [id number]
--- NOTE | 2017-02-08 13:06 | PN ---
DATE: 02/08/2017 SUBJECTIVE DATA: No acute changes overnight. The patient remains intubated, sedated. Tube feeding on hold for possible procedure. OBJECTIVE DATA: VITAL SIGNS: Temperature 98.2, pulse 75, respirations 15, blood pressure 114/69, saturation 100 percent on vent. LABORATORY AND DIAGNOSTIC DATA: WBC 7.5, H and H 9.3 and 28.6, platelets 54, neutrophils 69.7, BUN 72, creatinine 2.15. MICROBIOLOGY: Cultures have been negative. INDWELLINGS: Endotracheal tube, NG tube, Darden, and PICC line. PHYSICAL EXAMINATION: GENERAL: This is a fragile, well-developed, elderly man, who is intubated, sedated, and in no distress. HEENT: Head atraumatic, normocephalic. Sclerae anicteric. Buccal mucosa dry. NECK: Supple. Trachea midline. CHEST: Rise symmetrical. Breath sounds diminished at the bases. HEART: S1, S2. ABDOMEN: Soft. Bowel sounds present. EXTREMITIES: With trace edema. ASSESSMENT: 1. Resolving sepsis status post shock. 2. Acute respiratory failure, status post re-intubated. 3. 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 4. Acute on chronic kidney disease, now on hemodialysis. Started on this admission. 5. History of Abbi's granulomatosis. 6. Probable sinusitis and mastoiditis per CT of the brain. 7. Anemia. 8. Thrombocytopenia. PLAN: We are going to discontinue vancomycin. Continue meropenem for a couple more days. The patient is scheduled for trach and PEG. Continue dialysis as per Nephrology. Dictated By: Giancarlo Hodges NP /eladio/eliza /Document#: [id number]
[2017-02-08] MEDS: DEXTROSE 5% 1,000 ML IV SCH (13:29)
--- NOTE | 2017-02-08 13:33 | GILP ---
DATE OF PROCEDURE: 02/08/2017 SURGEON: Moi Grant MD. PROCEDURE PERFORMED: Percutaneous endoscopic gastrostomy. INDICATION: The patient is a 66-year-old gentleman with a history of Abbi's granulomatosis, West Nile viral infection, encephalitis who is undergoing this procedure for a long-term enteral nutrition. The risks of the procedure, related complications, anesthetic risks, alternatives discussed. Informed consent was obtained. DESCRIPTION OF PROCEDURE: The procedure was done at bedside, the patient was sedated by M[employer] DIRECTOR and was given Ancef 1 gram prior to the procedure. After optimal sedation, the scope was passed with much ease into the esophagus, advanced further down into stomach and duodenum. He had multiple superficial ulcer in the duodenum. Stomach mucosa revealed gastritis by transillumination and digital palpation technique the appropriate site was chosen in the anterior abdominal wall. The site was sterilized with chlorhexidine solution, 2 percent xylocaine instilled by safe method. Small incision was made. Through that incision a trocar stylet first into stomach. Stylet was removed through the hollow tip of the catheter. The blue string was passed which was identified in the stomach. The string was snared with trans- endoscopically passed snare and the entire procedure was completed by modified Ponsky technique. External bumper secured, patient was rescoped. The position of the internal bumper confirmed excellent. The patient tolerated the procedure very well. IMPRESSION: 1. Successful placement of G-tube done without any immediate complication. 2. Multiple superficial duodenal ulcer. 3. Gastritis. PLAN: Resume feeding after 6 hours. Abdominal binder all the time. Medication after 3 hours and patient should be on a PPI for ulcer. Dictated By: Moi Grant MD /eladio/krystina /Document#: [id number] CC: Moi Grant MD;*EndCC*
--- NOTE | 2017-02-08 13:38 | CONS ---
Date/Time of Note Date/Time of Note DATE: 02/08/17 TIME: 13:36 Consult Date/Type/Reason Admit Date/Time Jan 17, 2017 at 17:33 Type of Consultation: Rheum Subjective Patient is still sedated and intubated, having failed one extubation attmept. Now awaiting PEG and Trach placement. Objective Vital Signs Date Time Temp Pulse Resp B/P Pulse Ox O2 Delivery O2 Flow Rate FiO2 02/08/17 12:00 63 18 96/61 100 02/08/17 11:30 97.7 02/08/17 08:00 30 02/08/17 06:30 Mechanical Ventilator Intake and Output 02/07/17 02/07/17 02/08/17 15:00 23:00 07:00 Intake Total 1153 ml 897 ml 589 ml Output Total 570 ml 750 ml 525 ml Balance 583 ml 147 ml 64 ml Exam GENERAL: Intubated, Sedated SKIN: Multiple echymoses throughout- HEENT: ET Tube in place NECK: No lymphadenopathy. HEART: S1, S2. Regular rate and rhythm. LUNGS: Clear bilaterally to auscultation. ABDOMEN: Distended. EXTREMITIES: No cyanosis, no edema. MUSCULOSKELETAL: No synovitis Results/Medications Result Diagram: 02/08/17 0440 02/08/17 0440 Results 24 hrs Laboratory Tests Test 02/07/17 17:23 02/07/17 20:59 02/08/17 02:02 02/08/17 04:40 Bedside Glucose 138 153 116 118 White Blood Count 7.5 Red Blood Count 3.23 L Hemoglobin 9.3 L Hematocrit 28.6 L Mean Corpuscular Volume 88.5 Mean Corpuscular Hemoglobin 28.8 L Mean Corpuscular Hemoglobin Concent 32.5 Red Cell Distribution Width 19.0 H Platelet Count 54 L Mean Platelet Volume Neutrophils % 69.7 Lymphocytes % 7.8 L Monocytes % 13.5 H Eosinophils % 7.8 H Basophils % 0.1 Nucleated Red Blood Cells % 0.8 H Neutrophils # 5.2 Lymphocytes # 0.6 L Monocytes # 1.0 H Eosinophils # 0.6 H Basophils # 0.0 Nucleated Red Blood Cells # 0.1 H Prothrombin Time 11.5 L Prothrombin Time Ratio 0.9 INR International Normalized Ratio 0.84 Activated Partial Thromboplast Time 31.4 Sodium Level 133 L Potassium Level 4.3 Chloride Level 102 Carbon Dioxide Level 27 Anion Gap 8 Blood Urea Nitrogen 72 H Creatinine 2.15 H Glucose Level 114 # Calcium Level 8.6 Phosphorus Level 4.4 Magnesium Level 1.9 Test 02/08/17 07:30 02/08/17 11:22 Bedside Glucose 122 156 Medications Current Medications Ondansetron HCl (Zofran Inj) 4 mg Q6H PRN IV NAUSEA AND/OR VOMITING; Start 01/17 at 14:30 Morphine Sulfate (morphine) 2 mg Q4H PRN IV SEVERE PAIN LEVEL 7-10 Last administered on 01/31/17 07:22; Admin Dose 2 MG; Start 01/17/17 at 14:30 Docusate Sodium (Colace) 100 mg Q12H PRN PO CONSTIPATION; Start 01/17/17 at 14: 30 Febuxostat (Uloric) 40 mg DAILY PO Last administered on 02/08/17 08:09; Admin Dose 40 MG; Start 01/18/17 at 09:00 Diphenhydramine HCl (Benadryl) 25 mg Q4H PRN IV CHILLS; Start 01/17/17 at 18:30 Nicotine 1 patch 1 patch DAILY TRANSDERM Last administered on 02/08/17 08:09; Admin Dose 1 PATCH; Start 01/18/17 at 10:30 Acetaminophen (Ofirmev 1000mg/ 100ml Iv) 100 ml @ 400 mls/hr Q4 PRN IVPB FEVER GREATER THAN 100.6 Last administered on 02/04/17 12:00; Admin Dose 400 MLS/HR; Start 01/19/17 at 00:30 Hydralazine HCl (Apresoline) 10 mg Q4H PRN IV hypertension Last administered on 01/27/17 22:20; Admin Dose 10 MG; Start 01/19/17 at 01:00 Miscellaneous Information 1 ea NOTE XX ; Start 01/19/17 at 09:00 Glucose (Glutose) 15 gm Q15M PRN PO DECREASED GLUCOSE; Start 01/19/17 at 09:00 Glucose (Glutose) 22.5 gm Q15M PRN PO DECREASED GLUCOSE; Start 01/19/17 at 09:00 Dextrose (D50w Syringe) 25 ml Q15M PRN IV DECREASED GLUCOSE; Start 01/19/17 at 09:00 Dextrose (D50w Syringe) 50 ml Q15M PRN IV DECREASED GLUCOSE; Start 01/19/17 at 09:00 Glucagon (Glucagen) 1 mg Q15M PRN IM DECREASED GLUCOSE; Start 01/19/17 at 09:00 Glucose (Glutose) 15 gm Q15M PRN BUCCAL DECREASED GLUCOSE; Start 01/19/17 at 09: 00 IV Flush (NS 10 ml) 10 ml PRN PRN IV FLUSH LINE; Start 01/19/17 at 12:00 Diphenhydramine HCl (Benadryl Liquid Cup) 25 mg QHS PRN NGT ITCHING; Start 01/19 at 21:00 Hydralazine HCl (Apresoline) 25 mg Q4H PRN NGT hypertension Last administered on 01/25/17 12:17; Admin Dose 25 MG; Start 01/19/17 at 20:30 Acetaminophen/ Hydrocodone Bitart ([place] (5/325)) 1 tab Q6H PRN NGT MODERATE PAIN LEVEL 4-6; Start 01/20/17 at 02:30 Magnesium Hydroxide (Milk Of Mag) 30 ml DAILY PRN NGT CONSTIPATION; Start at 20:30 Acetaminophen (Tylenol Liquid) 1,000 mg Q4H PRN NGT PAIN AND OR ELEVATED TEMP; Start 01/19/17 at 20:30; Status Future Hold Docusate Sodium (Colace Liquid Cup) 100 mg TID NGT Last administered on 11:55; Admin Dose 100 MG; Start 01/19/17 at 21:00 Lorazepam (Ativan) 2 mg Q6H PRN IV before LP and MRI Last administered on 11:28; Admin Dose 2 MG; Start 01/20/17 at 00:00 Lansoprazole 30 mg 30 mg DAILY@06 NGT Last administered on 02/08/17 06:35; Admin Dose 30 MG; Start 01/21/17 at 06:00 Norepinephrine/ Dextrose (Levophed/D5W) 500 ml @ 1.87 mls/hr TITRATE IV ; Start 01/20/17 at 17:30 Hydralazine HCl (Apresoline) 50 mg TID NGT Last administered on 02/03/17 20:31 ; Admin Dose 50 MG; Start 01/26/17 at 21:00 Diagnostic Test (Pha) (Accu-Chek) 1 ea 02 XX Last administered on 02/08/17 02: 02; Admin Dose 1 EA; Start 02/01/17 at 02:00 Insulin Aspart (Novolog Insulin Pen) NOVOLOG *MODERATE* ALGORI... Q4 SC Last administered on 02/07/17 21:02; Admin Dose 2 UNIT; Start 01/31/17 at 21:00 Epoetin Efrain (Epogen (Neserd)) 6,000 units MoWeFr@17 SC Last administered on 17:03; Admin Dose 6,000 UNITS; Start 02/01/17 at 17:00 Senna (Senokot) 1 tab BID PRN PO CONSTIPATION; Start 02/01/17 at 17:00 Polyethylene Glycol (Miralax) 17 gm DAILY PO Last administered on 02/06/17 09: 29; Admin Dose 17 GM; Start 02/02/17 at 09:00 Atropine Sulfate 1 mg 1 mg PRN PRN IV DECREASED HEART RATE; Start 02/02/17 at 02:00 Dextrose 1,000 ml @ 50 mls/hr Q20H IV Last administered on 02/08/17 13:29; Admin Dose 50 MLS/HR; Start 02/04/17 at 08:00 Propofol 100 ml @ 2.295 mls/ hr Q12H IV Last administered on 02/08/17 11:26; Admin Dose 11.475 MLS/HR; Start 02/04/17 at 08:30 Phenylephrine HCl 40 mg/Dextrose 500 ml @ 75 mls/hr TITRATE IV Last administered on 02/06/17 01:19; Admin Dose 22.5 MLS/HR; Start 02/04/17 at 09:00 Meropenem/Sodium Chloride (Merrem 500mg/50 ml(Pmx)) 50 ml @ 100 mls/hr Q24H IVPB Last administered on 02/07/17 17:24; Admin Dose 100 MLS/HR; Start at 17:00 Dexamethasone (Decadron) 2 mg DAILY IV Last administered on 02/08/17 08:09; Admin Dose 2 MG; Start 02/06/17 at 09:00 Assessment/Plan Chief Complaint/Hosp Course IMPRESSION AND PLAN: 66-year-old male with history of hypertension, adenocarcinoma of the lung, gout 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 1. Respiratory failure- most likely central in Etiology. MRI shows cerebellar encephalitis. Plan on Trach and PEG 2) Jc's Patient is on Rituxan which is an immunosuppressant and this puts him at risk for opportunistic infections. Also his Abbi's has been very well controlled since his diagnosis, he has never had a flare, he has never been hospitalized, with Cytoxan and now Rituxan, I feel like it is unlikely that it would be a Abbi's flare. 4 History of gout. Uric acid levels are low. There is no joint swelling. No joint pain. 5 Acute on Chronic kidney disease, likely secondary to infection. Now getting HD I Problems: SHIRLEY MORALES MD Feb 08, 2017 13:38
--- NOTE | 2017-02-08 15:28 | CONS ---
Date/Time of Note Date/Time of Note DATE: 02/08/17 TIME: 15:26 Consult Date/Type/Reason Admit Date/Time Jan 17, 2017 at 17:33 Type of Consultation: cardiology Subjective CARDIOLOGY FOLLOW UP NOTE: D/W STAFF and rhythm was reviewed. pt remains in NSR. no more pauses seen overnight. pt still remains intubated on vent and nonverbal S/P PEG OBJECTIVE: GEN: intubated on vent HEENT: NCAT. pupils are equal neck: no JVD CV: RRR. no m/g/r pulm: no wheezing anteriorly. +mild rhonchi. GI: soft, NT ND. no rebound or guarding. s/p PEG ext + B/L LE edema neuro: opens his eyes. psych: calm pleasant Derm;' No active bleeding ECHO: 1. Normal left ventricular systolic function. Normal left ventricular cavity size. Moderate concentric left ventricular hypertrophy. Ejection fraction is visually estimated at 65 %. Tissue Doppler/Mitral Doppler indices are consistent with impaired relaxation (Stage I diastolic dysfunction). 2. Normal appearance and function of the mitral valve with trace physiologic regurgitation. 3. No hemodynamically significant aortic stenosis by doppler. Aortic cusps appear mildly calcified. Mild aortic valve regurgitation. 4. Normal appearance of the tricuspid valve. Unable to obtain RVSP due to minimal presence of tricuspid regurgitation. Objective Vital Signs Date Time Temp Pulse Resp B/P Pulse Ox O2 Delivery O2 Flow Rate FiO2 02/08/17 15:15 66 22 124/65 100 02/08/17 14:38 97.8 02/08/17 13:20 30 02/08/17 06:30 Mechanical Ventilator Intake and Output 02/07/17 02/07/17 02/08/17 15:00 23:00 07:00 Intake Total 1153 ml 897 ml 589 ml Output Total 570 ml 750 ml 525 ml Balance 583 ml 147 ml 64 ml Results/Medications Result Diagram: 02/08/170 02/08/17 0440 Results 24 hrs Laboratory Tests Test 02/07/17 17:23 02/07/17 20:59 02/08/17 02:02 02/08/17 04:40 Bedside Glucose 138 153 116 118 White Blood Count 7.5 Red Blood Count 3.23 L Hemoglobin 9.3 L Hematocrit 28.6 L Mean Corpuscular Volume 88.5 Mean Corpuscular Hemoglobin 28.8 L Mean Corpuscular Hemoglobin Concent 32.5 Red Cell Distribution Width 19.0 H Platelet Count 54 L Mean Platelet Volume Neutrophils % 69.7 Lymphocytes % 7.8 L Monocytes % 13.5 H Eosinophils % 7.8 H Basophils % 0.1 Nucleated Red Blood Cells % 0.8 H Neutrophils # 5.2 Lymphocytes # 0.6 L Monocytes # 1.0 H Eosinophils # 0.6 H Basophils # 0.0 Nucleated Red Blood Cells # 0.1 H Prothrombin Time 11.5 L Prothrombin Time Ratio 0.9 INR International Normalized Ratio 0.84 Activated Partial Thromboplast Time 31.4 Sodium Level 133 L Potassium Level 4.3 Chloride Level 102 Carbon Dioxide Level 27 Anion Gap 8 Blood Urea Nitrogen 72 H Creatinine 2.15 H Glucose Level 114 # Calcium Level 8.6 Phosphorus Level 4.4 Magnesium Level 1.9 Test 02/08/17 07:30 02/08/17 11:22 Bedside Glucose 122 156 Medications Current Medications Ondansetron HCl (Zofran Inj) 4 mg Q6H PRN IV NAUSEA AND/OR VOMITING; Start 01/17 at 14:30 Morphine Sulfate (morphine) 2 mg Q4H PRN IV SEVERE PAIN LEVEL 7-10 Last administered on 01/31/17 07:22; Admin Dose 2 MG; Start 01/17/17 at 14:30 Docusate Sodium (Colace) 100 mg Q12H PRN PO CONSTIPATION; Start 01/17/17 at 14: 30 Febuxostat (Uloric) 40 mg DAILY PO Last administered on 02/08/17 08:09; Admin Dose 40 MG; Start 01/18/17 at 09:00 Diphenhydramine HCl (Benadryl) 25 mg Q4H PRN IV CHILLS; Start 01/17/17 at 18:30 Nicotine 1 patch 1 patch DAILY TRANSDERM Last administered on 02/08/17 08:09; Admin Dose 1 PATCH; Start 01/18/17 at 10:30 Acetaminophen (Ofirmev 1000mg/ 100ml Iv) 100 ml @ 400 mls/hr Q4 PRN IVPB FEVER GREATER THAN 100.6 Last administered on 02/04/17 12:00; Admin Dose 400 MLS/HR; Start 01/19/17 at 00:30 Hydralazine HCl (Apresoline) 10 mg Q4H PRN IV hypertension Last administered on 01/27/17 22:20; Admin Dose 10 MG; Start 01/19/17 at 01:00 Miscellaneous Information 1 ea NOTE XX ; Start 01/19/17 at 09:00 Glucose (Glutose) 15 gm Q15M PRN PO DECREASED GLUCOSE; Start 01/19/17 at 09:00 Glucose (Glutose) 22.5 gm Q15M PRN PO DECREASED GLUCOSE; Start 01/19/17 at 09:00 Dextrose (D50w Syringe) 25 ml Q15M PRN IV DECREASED GLUCOSE; Start 01/19/17 at 09:00 Dextrose (D50w Syringe) 50 ml Q15M PRN IV DECREASED GLUCOSE; Start 01/19/17 at 09:00 Glucagon (Glucagen) 1 mg Q15M PRN IM DECREASED GLUCOSE; Start 01/19/17 at 09:00 Glucose (Glutose) 15 gm Q15M PRN BUCCAL DECREASED GLUCOSE; Start 01/19/17 at 09: 00 IV Flush (NS 10 ml) 10 ml PRN PRN IV FLUSH LINE; Start 01/19/17 at 12:00 Diphenhydramine HCl (Benadryl Liquid Cup) 25 mg QHS PRN NGT ITCHING; Start 01/19 at 21:00 Hydralazine HCl (Apresoline) 25 mg Q4H PRN NGT hypertension Last administered on 01/25/17 12:17; Admin Dose 25 MG; Start 01/19/17 at 20:30 Acetaminophen/ Hydrocodone Bitart ([place] (5/325)) 1 tab Q6H PRN NGT MODERATE PAIN LEVEL 4-6; Start 01/20/17 at 02:30 Magnesium Hydroxide (Milk Of Mag) 30 ml DAILY PRN NGT CONSTIPATION; Start at 20:30 Acetaminophen (Tylenol Liquid) 1,000 mg Q4H PRN NGT PAIN AND OR ELEVATED TEMP; Start 01/19/17 at 20:30; Status Future Hold Docusate Sodium (Colace Liquid Cup) 100 mg TID NGT Last administered on 11:55; Admin Dose 100 MG; Start 01/19/17 at 21:00 Lorazepam (Ativan) 2 mg Q6H PRN IV before LP and MRI Last administered on 11:28; Admin Dose 2 MG; Start 01/20/17 at 00:00 Lansoprazole 30 mg 30 mg DAILY@06 NGT Last administered on 02/08/17 06:35; Admin Dose 30 MG; Start 01/21/17 at 06:00 Norepinephrine/ Dextrose (Levophed/D5W) 500 ml @ 1.87 mls/hr TITRATE IV ; Start 01/20/17 at 17:30 Hydralazine HCl (Apresoline) 50 mg TID NGT Last administered on 02/03/17 20:31 ; Admin Dose 50 MG; Start 01/26/17 at 21:00 Diagnostic Test (Pha) (Accu-Chek) 1 ea 02 XX Last administered on 02/08/17 02: 02; Admin Dose 1 EA; Start 02/01/17 at 02:00 Insulin Aspart (Novolog Insulin Pen) NOVOLOG *MODERATE* ALGORI... Q4 SC Last administered on 02/07/17 21:02; Admin Dose 2 UNIT; Start 01/31/17 at 21:00 Epoetin Efrain (Epogen (Neserd)) 6,000 units MoWeFr@17 SC Last administered on 17:03; Admin Dose 6,000 UNITS; Start 02/01/17 at 17:00 Senna (Senokot) 1 tab BID PRN PO CONSTIPATION; Start 02/01/17 at 17:00 Polyethylene Glycol (Miralax) 17 gm DAILY PO Last administered on 02/06/17 09: 29; Admin Dose 17 GM; Start 02/02/17 at 09:00 Atropine Sulfate 1 mg 1 mg PRN PRN IV DECREASED HEART RATE; Start 02/02/17 at 02:00 Dextrose 1,000 ml @ 50 mls/hr Q20H IV Last administered on 02/08/17 13:29; Admin Dose 50 MLS/HR; Start 02/04/17 at 08:00 Propofol 100 ml @ 2.295 mls/ hr Q12H IV Last administered on 02/08/17 11:26; Admin Dose 11.475 MLS/HR; Start 02/04/17 at 08:30 Phenylephrine HCl 40 mg/Dextrose 500 ml @ 75 mls/hr TITRATE IV Last administered on 02/06/17 01:19; Admin Dose 22.5 MLS/HR; Start 02/04/17 at 09:00 Meropenem/Sodium Chloride (Merrem 500mg/50 ml(Pmx)) 50 ml @ 100 mls/hr Q24H IVPB Last administered on 02/07/17 17:24; Admin Dose 100 MLS/HR; Start at 17:00 Dexamethasone (Decadron) 2 mg DAILY IV Last administered on 02/08/17 08:09; Admin Dose 2 MG; Start 02/06/17 at 09:00 Assessment/Plan Chief Complaint/Hosp Course Assessment/ Recommendations: 1. SICK SINUS syndrome: with long pauses. probably vasovagal: currently stable . will closely monitor for now. he has remained stable over the past few days. 2. encephalopathy, west nile virus: defer to ID and neuro rec 3. ESRD: on HD now f/u with renal 4. HTN: currently stable 5. anemia; stable . 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 resp failure; re-intubated now again and may need trach now. cont ICU care THANK YOU HERIBERTO FORST MD [facility] Problems: HERIBERTO FRSOT MD Feb 08, 2017 15:28
[2017-02-08] MEDS: EPOETIN ALFA (NESRD) 3,000 UNITS/ML VIAL SC SCH (17:00)
[2017-02-08] MEDS: MEROPENEM 500MG/50 ML (PMX) 50 ML IVPB SCH (17:48)
--- NOTE | 2017-02-08 23:20 | QN ---
Documentation Comment Date of service: 02/04/2017 Endotracheal Intubation by me: Pre assessment performed. Sedated with etomidate 20 mg IV 1 and paralyzed with succinylcholine 100 mg IV 1. Pre-oxygenation performed with 100% oxygen RSI: Performed w/o complication or hypoxic events. Medications as ordered. Blade: Mac 4 ET Tube: 7.5 cm Depth: 22 cm at the lip Intubation confirmed by colorimetric CO2, equal breath sounds, quiet over the stomach. PETER BROWNLEE MD Feb 08, 2017 23:20
[2017-02-09] VITALS (67 sets, daily range): BP systolic 86–160; BP diastolic 42–101; PULSE 62–99; RESP 13–27
--- NOTE | 2017-02-09 00:16 | CONS ---
DATE OF ADMISSION: 01/17/2017 DATE OF CONSULTATION: 02/08/2017 REASON FOR CONSULTATION: Evaluation for tracheostomy. HISTORY OF PRESENT ILLNESS: This is a 66-year-old male, with a history of CVA, currently has respiratory failure, unable to come off the ventilator secondary to CVA and other comorbidities. Patient will need to get tracheostomy and dialysis access. PAST MEDICAL HISTORY: Hypertension, hyperlipidemia, CVA. PAST SURGICAL HISTORY: None. ALLERGIES: NONE. SOCIAL HISTORY: No smoking, drinking, or drug use. MEDICATION: List reviewed. PHYSICAL EXAMINATION: VITAL SIGNS: Blood pressure is 110/60, pulse is 80, respiratory rate is 18. HEART: Regular rate and rhythm. . ABDOMEN: Soft. EXTREMITIES: Warm. LABORATORY: Are significant for a white count of 7.5, hemoglobin 9.3, platelet count 54. Normal coagulation factors. IMPRESSION: Respiratory failure. RECOMMENDATIONS: We will proceed with placement of a tracheostomy and a dialysis catheter. Discussed with the nursing staff. Dictated By: Natan Holder MD /[email or web address] /Document#: [id number]
[2017-02-09] MEDS: INSULIN ASPART [NOVOLOG] 3 ML PEN SC SCH ×6 (01:00→21:00)
[2017-02-09] MEDS: ACCU-CHEK XX SCH (01:40)
[2017-02-09] MEDS: PROPOFOL 100 ML IV SCH ×3 (03:23→17:12)
[2017-02-09] MEDS: LANSOPRAZOLE 30 MG CAP NGT SCH (05:30)
[2017-02-09] MEDS: DEXTROSE 5% 1,000 ML IV SCH (05:30)
[2017-02-09 06:31] LABS: ABNORMAL IP MESSAGE 1; BASOPHILS % 0.2 % (0.0-2.0); EOSINOPHILS # 0.4 10^3/ul (0.0-0.5); EOSINOPHILS % 6.5 % (0.0-7.0); HEMATOCRIT 29.1 % (42.0-52.0); HEMOGLOBIN 9.4 g/dl (14.0-18.0); LYMPHOCYTES # 0.5 10^3/ul (0.8-2.9); LYMPHOCYTES % 8.7 % (15.0-51.0); MEAN CORPUSCULAR HEMOGLOBIN 28.8 pg (29.0-33.0); MEAN CORPUSCULAR HGB CONC 32.3 g/dl (32.0-37.0); MEAN CORPUSCULAR VOLUME 89.3 fl (82.0-101.0); MONOCYTE # 0.7 10^3/ul (0.3-0.9); MONOCYTES % 12.6 % (0.0-11.0); NEUTROPHIL # 4.2 10^3/ul (1.6-7.5); POSITIVE DIFF @See below; RED BLOOD COUNT 3.26 10^6/ul (4.70-6.10); RED CELL DISTRIBUTION WIDTH 18.8 % (11.5-14.5); WHITE BLOOD COUNT 5.9 10^3/ul (4.8-10.8)
[2017-02-09 06:48] LABS: PLATELET COUNT 51 10^3/UL (140-415)
[2017-02-09 07:16] LABS: CALCIUM 8.3 mg/dl (8.4-10.2); CREATININE 1.93 mg/dl (0.61-1.24); PHOSPHORUS 5.4 mg/dl (2.5-4.9); POTASSIUM 4.6 mmol/L (3.5-5.1)
[2017-02-09 07:47] LABS: MAGNESIUM 1.9 mg/dl (1.7-2.5)
--- NOTE | 2017-02-09 08:06 | PN ---
DATE: 02/09/2017 SUBJECTIVE DATA: The patient is critically ill, on ventilatory support. The patient is pending trach placement patient hemodialysis yesterday, tolerated it well. No other events noted. OBJECTIVE DATA: VITAL SIGNS: Blood pressure is 94/63, respirations 14, pulse 73, and temperature 98.4. HEENT: Head is normocephalic. NECK: Supple. HEART: Regular rate. LUNGS: Diminished breath sounds at the base. ABDOMEN: Soft, nontender to palpation. No rebound or guarding. EXTREMITIES: Negative for clubbing, cyanosis. No edema. DERMATOLOGIC: No rashes. MUSCULOSKELETAL: No joint effusion. NEUROLOGIC: No change in exam. MEDICATIONS: Reviewed. LABORATORY AND DIAGNOSTIC DATA: Reviewed. No new labs. ASSESSMENT AND PLAN: 1. Nonoliguric acute kidney injury on top of chronic kidney disease with previous baseline creatinine 1.7-2.0 mg/dL. Etiology of acute kidney injury secondary to acute tubular necrosis. The patient's last hemodialysis was yesterday. We will hold dialysis at this time. Monitor for signs of recovery. 2. Hyponatremia, improved. 3. Anemia. Monitor hemoglobin and hematocrit levels. Continue Epogen as needed. 4. Hypokalemia, resolved. 5. Mineral bone disorder. Monitor calcium and phosphorus levels. 6. Hypomagnesemia, secondary to acute kidney injury. Continue to monitor. 7. Ventilatory-dependent respiratory failure. Ventilator settings and arterial blood gases reviewed. The patient is pending trach placement. 8. 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 Patient status post-intravenous immunoglobulin. Continue medical management. Follow up with Neurology. 9. History of Abbi's granulomatosis, status post-Rituxan. 10. Gastrointestinal and deep venous thrombosis prophylaxis. Dictated By: Jim Sierra DO /[email or web address] /Document#: [id number]
[2017-02-09] MEDS: POLYETHYLENE GLYCOL 17 GM PACKET PO SCH (09:00)
[2017-02-09] MEDS: DOCUSATE SODIUM 10 MG/ML (10ML CUP) NGT SCH ×3 (09:00→22:52)
[2017-02-09] MEDS: DEXAMETHASONE 4 MG/ML 1 ML INJ IV SCH (09:01)
[2017-02-09] MEDS: NICOTINE (14 MG/24 HR) PATCH TRANSDERM SCH (09:01)
[2017-02-09] MEDS: FEBUXOSTAT 40 MG TABLET PO SCH (09:01)
--- NOTE | 2017-02-09 09:31 | CONS ---
Date/Time of Note Date/Time of Note DATE: 02/09/17 TIME: 09:29 Consult Date/Type/Reason Admit Date/Time Jan 17, 2017 at 17:33 Type of Consultation: cardiology Subjective CARDIOLOGY FOLLOW UP NOTE: D/W STAFF and Dr Holder. rhythm was reviewed. pt remains in NSR. no more pauses seen overnight. pt still remains intubated on vent and nonverbal S/P PEG awaiting trach. OBJECTIVE: GEN: intubated on vent HEENT: NCAT. pupils are equal neck: no JVD CV: RRR. no m/g/r pulm: no wheezing anteriorly. +mild rhonchi. GI: soft, NT ND. no rebound or guarding. s/p PEG ext + B/L LE edema neuro: sedated. psych: calm pleasant Derm;' No active bleeding but multiple echymosis. ECHO: 1. Normal left ventricular systolic function. Normal left ventricular cavity size. Moderate concentric left ventricular hypertrophy. Ejection fraction is visually estimated at 65 %. Tissue Doppler/Mitral Doppler indices are consistent with impaired relaxation (Stage I diastolic dysfunction). 2. Normal appearance and function of the mitral valve with trace physiologic regurgitation. 3. No hemodynamically significant aortic stenosis by doppler. Aortic cusps appear mildly calcified. Mild aortic valve regurgitation. 4. Normal appearance of the tricuspid valve. Unable to obtain RVSP due to minimal presence of tricuspid regurgitation. Objective Vital Signs Date Time Temp Pulse Resp B/P Pulse Ox O2 Delivery O2 Flow Rate FiO2 02/09/17 08:00 98.5 69 18 128/73 100 Mechanical Ventilator 02/09/17 05:29 30 Intake and Output 02/08/17 02/08/17 02/09/17 15:00 23:00 07:00 Intake Total 413 ml 641.5 ml 430 ml Output Total 775 ml 885 ml 735 ml Balance -362 ml -243.5 ml -305 ml Results/Medications Result Diagram: 02/09/17 0520 02/09/17 0520 Results 24 hrs Laboratory Tests Test 02/08/17 11:22 02/08/17 17:45 02/08/17 20:50 02/09/17 01:30 Bedside Glucose 156 102 99 116 Test 02/09/17 05:20 02/09/17 05:27 02/09/17 09:03 White Blood Count 5.9 # Red Blood Count 3.26 L Hemoglobin 9.4 L Hematocrit 29.1 L Mean Corpuscular Volume 89.3 Mean Corpuscular Hemoglobin 28.8 L Mean Corpuscular Hemoglobin Concent 32.3 Red Cell Distribution Width 18.8 H Platelet Count 51 L Mean Platelet Volume Neutrophils % 71.0 Lymphocytes % 8.7 L Monocytes % 12.6 H Eosinophils % 6.5 Basophils % 0.2 Nucleated Red Blood Cells % 0.0 Neutrophils # 4.2 Lymphocytes # 0.5 L Monocytes # 0.7 Eosinophils # 0.4 Basophils # 0.0 Nucleated Red Blood Cells # 0.0 Sodium Level 134 L Potassium Level 4.6 Chloride Level 102 Carbon Dioxide Level 25 Anion Gap 12 Blood Urea Nitrogen 70 H Creatinine 1.93 H Glucose Level 111 Calcium Level 8.3 L Phosphorus Level 5.4 H Magnesium Level 1.9 Bedside Glucose 120 120 Medications Current Medications Ondansetron HCl (Zofran Inj) 4 mg Q6H PRN IV NAUSEA AND/OR VOMITING; Start 01/17 at 14:30 Morphine Sulfate (morphine) 2 mg Q4H PRN IV SEVERE PAIN LEVEL 7-10 Last administered on 01/31/17 07:22; Admin Dose 2 MG; Start 01/17/17 at 14:30 Docusate Sodium (Colace) 100 mg Q12H PRN PO CONSTIPATION; Start 01/17/17 at 14: 30 Febuxostat (Uloric) 40 mg DAILY PO Last administered on 02/09/17 09:01; Admin Dose 40 MG; Start 01/18/17 at 09:00 Diphenhydramine HCl (Benadryl) 25 mg Q4H PRN IV CHILLS; Start 01/17/17 at 18:30 Nicotine 1 patch 1 patch DAILY TRANSDERM Last administered on 02/09/17 09:01; Admin Dose 1 PATCH; Start 01/18/17 at 10:30 Acetaminophen (Ofirmev 1000mg/ 100ml Iv) 100 ml @ 400 mls/hr Q4 PRN IVPB FEVER GREATER THAN 100.6 Last administered on 02/04/17 12:00; Admin Dose 400 MLS/HR; Start 01/19/17 at 00:30 Hydralazine HCl (Apresoline) 10 mg Q4H PRN IV hypertension Last administered on 01/27/17 22:20; Admin Dose 10 MG; Start 01/19/17 at 01:00 Miscellaneous Information 1 ea NOTE XX ; Start 01/19/17 at 09:00 Glucose (Glutose) 15 gm Q15M PRN PO DECREASED GLUCOSE; Start 01/19/17 at 09:00 Glucose (Glutose) 22.5 gm Q15M PRN PO DECREASED GLUCOSE; Start 01/19/17 at 09:00 Dextrose (D50w Syringe) 25 ml Q15M PRN IV DECREASED GLUCOSE; Start 01/19/17 at 09:00 Dextrose (D50w Syringe) 50 ml Q15M PRN IV DECREASED GLUCOSE; Start 01/19/17 at 09:00 Glucagon (Glucagen) 1 mg Q15M PRN IM DECREASED GLUCOSE; Start 01/19/17 at 09:00 Glucose (Glutose) 15 gm Q15M PRN BUCCAL DECREASED GLUCOSE; Start 01/19/17 at 09: 00 IV Flush (NS 10 ml) 10 ml PRN PRN IV FLUSH LINE; Start 01/19/17 at 12:00 Diphenhydramine HCl (Benadryl Liquid Cup) 25 mg QHS PRN NGT ITCHING; Start 01/19 at 21:00 Hydralazine HCl (Apresoline) 25 mg Q4H PRN NGT hypertension Last administered on 01/25/17 12:17; Admin Dose 25 MG; Start 01/19/17 at 20:30 Acetaminophen/ Hydrocodone Bitart ([place] (5/325)) 1 tab Q6H PRN NGT MODERATE PAIN LEVEL 4-6; Start 01/20/17 at 02:30 Magnesium Hydroxide (Milk Of Mag) 30 ml DAILY PRN NGT CONSTIPATION; Start at 20:30 Acetaminophen (Tylenol Liquid) 1,000 mg Q4H PRN NGT PAIN AND OR ELEVATED TEMP; Start 01/19/17 at 20:30; Status Future Hold Docusate Sodium (Colace Liquid Cup) 100 mg TID NGT Last administered on 09:00; Admin Dose 100 MG; Start 01/19/17 at 21:00 Lorazepam (Ativan) 2 mg Q6H PRN IV before LP and MRI Last administered on 11:28; Admin Dose 2 MG; Start 01/20/17 at 00:00 Lansoprazole 30 mg 30 mg DAILY@06 NGT Last administered on 02/09/17 05:30; Admin Dose 30 MG; Start 01/21/17 at 06:00 Norepinephrine/ Dextrose (Levophed/D5W) 500 ml @ 1.87 mls/hr TITRATE IV ; Start 01/20/17 at 17:30 Hydralazine HCl (Apresoline) 50 mg TID NGT Last administered on 02/03/17 20:31 ; Admin Dose 50 MG; Start 01/26/17 at 21:00 Diagnostic Test (Pha) (Accu-Chek) 1 ea 02 XX Last administered on 02/09/17 01: 40; Admin Dose 1 EA; Start 02/01/17 at 02:00 Insulin Aspart (Novolog Insulin Pen) NOVOLOG *MODERATE* ALGORI... Q4 SC Last administered on 02/07/17 21:02; Admin Dose 2 UNIT; Start 01/31/17 at 21:00 Epoetin Efrain (Epogen (Neserd)) 6,000 units MoWeFr@17 SC Last administered on 17:03; Admin Dose 6,000 UNITS; Start 02/01/17 at 17:00 Senna (Senokot) 1 tab BID PRN PO CONSTIPATION; Start 02/01/17 at 17:00 Polyethylene Glycol (Miralax) 17 gm DAILY PO Last administered on 02/09/17 09: 00; Admin Dose 17 GM; Start 02/02/17 at 09:00 Atropine Sulfate 1 mg 1 mg PRN PRN IV DECREASED HEART RATE; Start 02/02/17 at 02:00 Dextrose 1,000 ml @ 50 mls/hr Q20H IV Last administered on 02/09/17 05:30; Admin Dose 50 MLS/HR; Start 02/04/17 at 08:00 Propofol 100 ml @ 2.295 mls/ hr Q12H IV Last administered on 02/09/17 03:23; Admin Dose 11.475 MLS/HR; Start 02/04/17 at 08:30 Phenylephrine HCl 40 mg/Dextrose 500 ml @ 75 mls/hr TITRATE IV Last administered on 02/06/17 01:19; Admin Dose 22.5 MLS/HR; Start 02/04/17 at 09:00 Meropenem/Sodium Chloride (Merrem 500mg/50 ml(Pmx)) 50 ml @ 100 mls/hr Q24H IVPB Last administered on 02/08/17 17:48; Admin Dose 100 MLS/HR; Start at 17:00 Dexamethasone (Decadron) 2 mg DAILY IV Last administered on 02/09/17 09:01; Admin Dose 2 MG; Start 02/06/17 at 09:00 Assessment/Plan Chief Complaint/Hosp Course Assessment/ Recommendations: 1. SICK SINUS syndrome: with long pauses. probably vasovagal: currently stable will closely monitor on tele for now. he has remained stable over the past few days. 2. encephalopathy, west nile virus: defer to ID and neuro rec 3. ESRD: on HD now f/u with renal 4. HTN: currently stable 5. anemia; stable . 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 resp failure; re-intubated now again and is awaiting trach now. cont ICU care THANK YOU HERIBERTO FROST MD [facility] Problems: HERIBERTO FROST MD Feb 09, 2017 09:31
--- NOTE | 2017-02-09 09:58 | CONS ---
Date/Time of Note Date/Time of Note DATE: 02/09/17 TIME: 09:57 Consult Date/Type/Reason Admit Date/Time Jan 17, 2017 at 17:33 Type of Consultation: Pulmonary Subjective Intubated sedated continues mechanical ventilation. Status post PEG tube placement. No comp occasions noted. Tube feeding is on hold pending tracheostomy. Objective Vital Signs Date Time Temp Pulse Resp B/P Pulse Ox O2 Delivery O2 Flow Rate FiO2 02/09/17 08:00 98.5 69 18 128/73 100 Mechanical Ventilator 02/09/17 05:29 30 Intake and Output 02/08/17 02/08/17 02/09/17 15:00 23:00 07:00 Intake Total 413 ml 641.5 ml 430 ml Output Total 775 ml 885 ml 735 ml Balance -362 ml -243.5 ml -305 ml Exam PHYSICAL EXAMINATION GENERAL: Elderly gentleman, intubated on mechanical ventilation, opens eyes and appears somewhat agitated. Orally intubated. VITAL SIGNS: see below. HEENT: Pupils equal, round, and reactive to light. CARDIAC: S1, S2, no added sounds or murmurs. CHEST: Diminished air entry bilaterally. ABDOMEN: Mildly distended. Bowel sounds present no guarding or rebound EXTREMITIES: No cyanosis, clubbing edema +1 NEUROLOGIC: Generalized weakness Results/Medications Result Diagram: 02/09/1751902/09/17 0520 Results 24 hrs Laboratory Tests Test 02/08/17 11:22 02/08/17 17:45 02/08/17 20:50 02/09/17 01:30 Bedside Glucose 156 102 99 116 Test 02/09/17 05:20 02/09/17 05:27 02/09/17 09:03 White Blood Count 5.9 # Red Blood Count 3.26 L Hemoglobin 9.4 L Hematocrit 29.1 L Mean Corpuscular Volume 89.3 Mean Corpuscular Hemoglobin 28.8 L Mean Corpuscular Hemoglobin Concent 32.3 Red Cell Distribution Width 18.8 H Platelet Count 51 L Mean Platelet Volume Neutrophils % 71.0 Lymphocytes % 8.7 L Monocytes % 12.6 H Eosinophils % 6.5 Basophils % 0.2 Nucleated Red Blood Cells % 0.0 Neutrophils # 4.2 Lymphocytes # 0.5 L Monocytes # 0.7 Eosinophils # 0.4 Basophils # 0.0 Nucleated Red Blood Cells # 0.0 Sodium Level 134 L Potassium Level 4.6 Chloride Level 102 Carbon Dioxide Level 25 Anion Gap 12 Blood Urea Nitrogen 70 H Creatinine 1.93 H Glucose Level 111 Calcium Level 8.3 L Phosphorus Level 5.4 H Magnesium Level 1.9 Bedside Glucose 120 120 Medications Current Medications Ondansetron HCl (Zofran Inj) 4 mg Q6H PRN IV NAUSEA AND/OR VOMITING; Start 01/17 at 14:30 Morphine Sulfate (morphine) 2 mg Q4H PRN IV SEVERE PAIN LEVEL 7-10 Last administered on 01/31/17 07:22; Admin Dose 2 MG; Start 01/17/17 at 14:30 Docusate Sodium (Colace) 100 mg Q12H PRN PO CONSTIPATION; Start 01/17/17 at 14: 30 Febuxostat (Uloric) 40 mg DAILY PO Last administered on 02/09/17 09:01; Admin Dose 40 MG; Start 01/18/17 at 09:00 Diphenhydramine HCl (Benadryl) 25 mg Q4H PRN IV CHILLS; Start 01/17/17 at 18:30 Nicotine 1 patch 1 patch DAILY TRANSDERM Last administered on 02/09/17 09:01; Admin Dose 1 PATCH; Start 01/18/17 at 10:30 Acetaminophen (Ofirmev 1000mg/ 100ml Iv) 100 ml @ 400 mls/hr Q4 PRN IVPB FEVER GREATER THAN 100.6 Last administered on 02/04/17 12:00; Admin Dose 400 MLS/HR; Start 01/19/17 at 00:30 Hydralazine HCl (Apresoline) 10 mg Q4H PRN IV hypertension Last administered on 01/27/17 22:20; Admin Dose 10 MG; Start 01/19/17 at 01:00 Miscellaneous Information 1 ea NOTE XX ; Start 01/19/17 at 09:00 Glucose (Glutose) 15 gm Q15M PRN PO DECREASED GLUCOSE; Start 01/19/17 at 09:00 Glucose (Glutose) 22.5 gm Q15M PRN PO DECREASED GLUCOSE; Start 01/19/17 at 09:00 Dextrose (D50w Syringe) 25 ml Q15M PRN IV DECREASED GLUCOSE; Start 01/19/17 at 09:00 Dextrose (D50w Syringe) 50 ml Q15M PRN IV DECREASED GLUCOSE; Start 01/19/17 at 09:00 Glucagon (Glucagen) 1 mg Q15M PRN IM DECREASED GLUCOSE; Start 01/19/17 at 09:00 Glucose (Glutose) 15 gm Q15M PRN BUCCAL DECREASED GLUCOSE; Start 01/19/17 at 09: 00 IV Flush (NS 10 ml) 10 ml PRN PRN IV FLUSH LINE; Start 01/19/17 at 12:00 Diphenhydramine HCl (Benadryl Liquid Cup) 25 mg QHS PRN NGT ITCHING; Start 01/19 at 21:00 Hydralazine HCl (Apresoline) 25 mg Q4H PRN NGT hypertension Last administered on 01/25/17 12:17; Admin Dose 25 MG; Start 01/19/17 at 20:30 Acetaminophen/ Hydrocodone Bitart ([place] (5/325)) 1 tab Q6H PRN NGT MODERATE PAIN LEVEL 4-6; Start 01/20/17 at 02:30 Magnesium Hydroxide (Milk Of Mag) 30 ml DAILY PRN NGT CONSTIPATION; Start at 20:30 Acetaminophen (Tylenol Liquid) 1,000 mg Q4H PRN NGT PAIN AND OR ELEVATED TEMP; Start 01/19/17 at 20:30; Status Future Hold Docusate Sodium (Colace Liquid Cup) 100 mg TID NGT Last administered on 09:00; Admin Dose 100 MG; Start 01/19/17 at 21:00 Lorazepam (Ativan) 2 mg Q6H PRN IV before LP and MRI Last administered on 11:28; Admin Dose 2 MG; Start 01/20/17 at 00:00 Lansoprazole 30 mg 30 mg DAILY@06 NGT Last administered on 02/09/17 05:30; Admin Dose 30 MG; Start 01/21/17 at 06:00 Norepinephrine/ Dextrose (Levophed/D5W) 500 ml @ 1.87 mls/hr TITRATE IV ; Start 01/20/17 at 17:30 Hydralazine HCl (Apresoline) 50 mg TID NGT Last administered on 02/03/17 20:31 ; Admin Dose 50 MG; Start 01/26/17 at 21:00 Diagnostic Test (Pha) (Accu-Chek) 1 ea 02 XX Last administered on 02/09/17 01: 40; Admin Dose 1 EA; Start 02/01/17 at 02:00 Insulin Aspart (Novolog Insulin Pen) NOVOLOG *MODERATE* ALGORI... Q4 SC Last administered on 02/07/17 21:02; Admin Dose 2 UNIT; Start 01/31/17 at 21:00 Epoetin Efrain (Epogen (Neserd)) 6,000 units MoWeFr@17 SC Last administered on 17:03; Admin Dose 6,000 UNITS; Start 02/01/17 at 17:00 Senna (Senokot) 1 tab BID PRN PO CONSTIPATION; Start 02/01/17 at 17:00 Polyethylene Glycol (Miralax) 17 gm DAILY PO Last administered on 02/09/17 09: 00; Admin Dose 17 GM; Start 02/02/17 at 09:00 Atropine Sulfate 1 mg 1 mg PRN PRN IV DECREASED HEART RATE; Start 02/02/17 at 02:00 Dextrose 1,000 ml @ 50 mls/hr Q20H IV Last administered on 02/09/17 05:30; Admin Dose 50 MLS/HR; Start 02/04/17 at 08:00 Propofol 100 ml @ 2.295 mls/ hr Q12H IV Last administered on 02/09/17 03:23; Admin Dose 11.475 MLS/HR; Start 02/04/17 at 08:30 Phenylephrine HCl 40 mg/Dextrose 500 ml @ 75 mls/hr TITRATE IV Last administered on 02/06/17 01:19; Admin Dose 22.5 MLS/HR; Start 02/04/17 at 09:00 Meropenem/Sodium Chloride (Merrem 500mg/50 ml(Pmx)) 50 ml @ 100 mls/hr Q24H IVPB Last administered on 02/08/17 17:48; Admin Dose 100 MLS/HR; Start at 17:00 Assessment/Plan Chief Complaint/Hosp Course IMPRESSION: 1. Hypoxemic respiratory failure requiring reintubation, pending tracheostomy 2. 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 3. Renal insufficiency 4. Hx Lung Ca 5. Abbi granulomatosis. 6. Status post PEG tube placement PLAN: 1. Patient unable to protect airway secretions. Pending tracheostomy 2. Supportive care for West Nile virus 3. ID recs 4. DVT and GI prophylaxis. Continue current level of care. Critical care time 40 minutes. Patient would benefit from Farfan unit Problems: CAROL DÍAZ MD[facility] Feb 09, 2017 09:58
--- NOTE | 2017-02-09 10:24 | CONS ---
Date/Time of Note Date/Time of Note DATE: 02/09/17 TIME: 10:23 Assessment/Plan Assessment/Plan Additional Assessment/Plan IMPRESSION: 1. Status post septic shock. 2. Jc's granulomatosis. 3. History of lung cancer, for which he had a dissection. 4. 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 5. Renal failure on hemodialysis. 6. Respiratory failure. 7. Dysphagia. 8. Anemia. 9. Status post a PEG Plan Feeding not started since patient is scheduled for tracheostomy Resume feeding after tracheostomy Continue present care Consultation Date/Type/Reason Admit Date/Time Jan 17, 2017 at 17:33 Initial Consult Date Type of Consultation: Pulmonary 24 HR Interval Summary Subjective hx not possible: pt non-verbal, pt critical Exam/Review of Systems Vital Signs Vitals Vital Signs Date Time Temp Pulse Resp B/P Pulse Ox O2 Delivery O2 Flow Rate FiO2 02/09/17 08:00 98.5 69 18 128/73 100 Mechanical Ventilator 02/09/17 05:29 30 Intake and Output 02/08/17 02/08/17 02/09/17 15:00 23:00 07:00 Intake Total 413 ml 641.5 ml 430 ml Output Total 775 ml 885 ml 735 ml Balance -362 ml -243.5 ml -305 ml Exam Constitutional: alert, oriented, well developed Psych: nl mood/affect, no complaints Head: atraumatic, normocephalic Eyes: EOMI, PERRL, nl conjunctiva, nl lids, nl sclera ENMT: nl external ears & nose, nl lips & teeth, nl nasal mucosa & septum Neck: non-tender, supple Respiratory: clear to auscultation, normal air movement Cardiovascular: nl pulses, regular rate and rhythm Gastrointestinal: nl liver, spleen, non-tender, soft Musculoskeletal: nl extremities to inspection, nl gait and stance Extremities: normal pulses Neurological: MA[employer] II-XII intact, nl mental status, nl speech, nl strength Skin: nl turgor, No rash or lesions Lymph: nl lymph nodes Results Result Diagram: 02/09/17 0520 02/09/17 0520 Results 24 hrs Laboratory Tests Test 02/08/17 11:22 02/08/17 17:45 02/08/17 20:50 02/09/17 01:30 Bedside Glucose 156 102 99 116 Test 02/09/17 05:20 02/09/17 05:27 02/09/17 09:03 White Blood Count 5.9 # Red Blood Count 3.26 L Hemoglobin 9.4 L Hematocrit 29.1 L Mean Corpuscular Volume 89.3 Mean Corpuscular Hemoglobin 28.8 L Mean Corpuscular Hemoglobin Concent 32.3 Red Cell Distribution Width 18.8 H Platelet Count 51 L Mean Platelet Volume Neutrophils % 71.0 Lymphocytes % 8.7 L Monocytes % 12.6 H Eosinophils % 6.5 Basophils % 0.2 Nucleated Red Blood Cells % 0.0 Neutrophils # 4.2 Lymphocytes # 0.5 L Monocytes # 0.7 Eosinophils # 0.4 Basophils # 0.0 Nucleated Red Blood Cells # 0.0 Sodium Level 134 L Potassium Level 4.6 Chloride Level 102 Carbon Dioxide Level 25 Anion Gap 12 Blood Urea Nitrogen 70 H Creatinine 1.93 H Glucose Level 111 Calcium Level 8.3 L Phosphorus Level 5.4 H Magnesium Level 1.9 Bedside Glucose 120 120 Medications Medications Current Medications Ondansetron HCl (Zofran Inj) 4 mg Q6H PRN IV NAUSEA AND/OR VOMITING; Start 01/17 at 14:30 Morphine Sulfate (morphine) 2 mg Q4H PRN IV SEVERE PAIN LEVEL 7-10 Last administered on 01/31/17 07:22; Admin Dose 2 MG; Start 01/17/17 at 14:30 Docusate Sodium (Colace) 100 mg Q12H PRN PO CONSTIPATION; Start 01/17/17 at 14: 30 Febuxostat (Uloric) 40 mg DAILY PO Last administered on 02/09/17 09:01; Admin Dose 40 MG; Start 01/18/17 at 09:00 Diphenhydramine HCl (Benadryl) 25 mg Q4H PRN IV CHILLS; Start 01/17/17 at 18:30 Nicotine 1 patch 1 patch DAILY TRANSDERM Last administered on 02/09/17 09:01; Admin Dose 1 PATCH; Start 01/18/17 at 10:30 Acetaminophen (Ofirmev 1000mg/ 100ml Iv) 100 ml @ 400 mls/hr Q4 PRN IVPB FEVER GREATER THAN 100.6 Last administered on 02/04/17 12:00; Admin Dose 400 MLS/HR; Start 01/19/17 at 00:30 Hydralazine HCl (Apresoline) 10 mg Q4H PRN IV hypertension Last administered on 01/27/17 22:20; Admin Dose 10 MG; Start 01/19/17 at 01:00 Miscellaneous Information 1 ea NOTE XX ; Start 01/19/17 at 09:00 Glucose (Glutose) 15 gm Q15M PRN PO DECREASED GLUCOSE; Start 01/19/17 at 09:00 Glucose (Glutose) 22.5 gm Q15M PRN PO DECREASED GLUCOSE; Start 01/19/17 at 09:00 Dextrose (D50w Syringe) 25 ml Q15M PRN IV DECREASED GLUCOSE; Start 01/19/17 at 09:00 Dextrose (D50w Syringe) 50 ml Q15M PRN IV DECREASED GLUCOSE; Start 01/19/17 at 09:00 Glucagon (Glucagen) 1 mg Q15M PRN IM DECREASED GLUCOSE; Start 01/19/17 at 09:00 Glucose (Glutose) 15 gm Q15M PRN BUCCAL DECREASED GLUCOSE; Start 01/19/17 at 09: 00 IV Flush (NS 10 ml) 10 ml PRN PRN IV FLUSH LINE; Start 01/19/17 at 12:00 Diphenhydramine HCl (Benadryl Liquid Cup) 25 mg QHS PRN NGT ITCHING; Start 01/19 at 21:00 Hydralazine HCl (Apresoline) 25 mg Q4H PRN NGT hypertension Last administered on 01/25/17 12:17; Admin Dose 25 MG; Start 01/19/17 at 20:30 Acetaminophen/ Hydrocodone Bitart ([place] (5/325)) 1 tab Q6H PRN NGT MODERATE PAIN LEVEL 4-6; Start 01/20/17 at 02:30 Magnesium Hydroxide (Milk Of Mag) 30 ml DAILY PRN NGT CONSTIPATION; Start at 20:30 Acetaminophen (Tylenol Liquid) 1,000 mg Q4H PRN NGT PAIN AND OR ELEVATED TEMP; Start 01/19/17 at 20:30; Status Future Hold Docusate Sodium (Colace Liquid Cup) 100 mg TID NGT Last administered on 09:00; Admin Dose 100 MG; Start 01/19/17 at 21:00 Lorazepam (Ativan) 2 mg Q6H PRN IV before LP and MRI Last administered on 11:28; Admin Dose 2 MG; Start 01/20/17 at 00:00 Lansoprazole 30 mg 30 mg DAILY@06 NGT Last administered on 02/09/17 05:30; Admin Dose 30 MG; Start 01/21/17 at 06:00 Norepinephrine/ Dextrose (Levophed/D5W) 500 ml @ 1.87 mls/hr TITRATE IV ; Start 01/20/17 at 17:30 Hydralazine HCl (Apresoline) 50 mg TID NGT Last administered on 02/03/17 20:31 ; Admin Dose 50 MG; Start 01/26/17 at 21:00 Diagnostic Test (Pha) (Accu-Chek) 1 ea 02 XX Last administered on 02/09/17 01: 40; Admin Dose 1 EA; Start 02/01/17 at 02:00 Insulin Aspart (Novolog Insulin Pen) NOVOLOG *MODERATE* ALGORI... Q4 SC Last administered on 02/07/17 21:02; Admin Dose 2 UNIT; Start 01/31/17 at 21:00 Epoetin Efrain (Epogen (Neserd)) 6,000 units MoWeFr@17 SC Last administered on 17:03; Admin Dose 6,000 UNITS; Start 02/01/17 at 17:00 Senna (Senokot) 1 tab BID PRN PO CONSTIPATION; Start 02/01/17 at 17:00 Polyethylene Glycol (Miralax) 17 gm DAILY PO Last administered on 02/09/17 09: 00; Admin Dose 17 GM; Start 02/02/17 at 09:00 Atropine Sulfate 1 mg 1 mg PRN PRN IV DECREASED HEART RATE; Start 02/02/17 at 02:00 Dextrose 1,000 ml @ 50 mls/hr Q20H IV Last administered on 02/09/17 05:30; Admin Dose 50 MLS/HR; Start 02/04/17 at 08:00 Propofol 100 ml @ 2.295 mls/ hr Q12H IV Last administered on 02/09/17 10:04; Admin Dose 11.475 MLS/HR; Start 02/04/17 at 08:30 Phenylephrine HCl 40 mg/Dextrose 500 ml @ 75 mls/hr TITRATE IV Last administered on 02/06/17 01:19; Admin Dose 22.5 MLS/HR; Start 02/04/17 at 09:00 Meropenem/Sodium Chloride (Merrem 500mg/50 ml(Pmx)) 50 ml @ 100 mls/hr Q24H IVPB Last administered on 02/08/17 17:48; Admin Dose 100 MLS/HR; Start at 17:00 SANJEEV CORTES MD Feb 09, 2017 10:24
--- NOTE | 2017-02-09 13:21 | PN ---
DATE: 02/09/2017 SUBJECTIVE DATA: The patient remains intubated, sedated, in no distress. Status post PEG placed yesterday. No fevers. OBJECTIVE DATA: VITAL SIGNS: Temperature 98.5, pulse 69, respirations 18, blood pressure 128/70, and saturation 100 on vent. LABORATORY AND DIAGNOSTIC DATA: WBC 5.9, H and H 9.4 and 29.1, platelets 51, no shift. BUN 70, creatinine 1.93. MICROBIOLOGY: All cultures remain negative. INDWELLING: The patient has endotracheal tube, PEG, [place], left upper extremity PICC line and femoral Jesus Manuel. ANTIMICROBIALS: The patient remains on meropenem, status post vancomycin. OBJECTIVE DATA: GENERAL: Chronically ill appearing, well-developed, elderly man, who is intubated, sedated, and in no distress. HEENT: Head atraumatic, normocephalic. Sclerae anicteric. Buccal mucosa dry. NECK: Supple. Trachea midline. CHEST: Chest rise symmetrical. Breath sounds diminished at the bases. HEART: S1, S2. ABDOMEN: Soft, bowel sounds present. EXTREMITIES: With trace edema. ASSESSMENT: 1. Status post septic shock. 2. 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 3. Respiratory failure status post aspiration pneumonia. 4. Dysphagia. 5. Possible sinusitis and mastoiditis as per radiographic findings on CT of the brain. 6. Anemia and thrombocytopenia. 7. Acute on chronic kidney disease, started on hemodialysis on this admission. 8. History of Louis's granulomatosis, had been on Rituxan. PLAN: 1. The patient remains hemodynamically stable. 2. Scheduled for tracheostomy. 3. We are going to discontinue meropenem and observe him. 4. Repeat cultures p.r.n. 5. Continue management as per primary team and consultants. Dictated By: Giancarlo Hodges NP /[email or web address] /Document#: [id number]
--- NOTE | 2017-02-09 15:39 | PN ---
DATE: 02/09/2017 SUBJECTIVE DATA: Patient is status post G-tube placement yesterday and status post hemodialysis today. Awaiting trach placement and change patient's Jesus Manuel dialysis catheter. OBJECTIVE DATA: VITAL SIGNS: Temperature 98.5, pulse 71, respirations 24, blood pressure 128/73, saturation 99 percent on 30 percent FiO2. In general, patient is in no acute distress. Currently on propofol and does respond to verbal and tactile stimuli. The patient is pale. HEART: Cardiovascular S1, S2. Mild rhonchi bilaterally. ABDOMEN: Soft, nontender. G-tube is in place. Extremity trace to +1 edema throughout. LABS: White count is 5.9, hemoglobin 9.4, hematocrit 29, platelet count 51, neutrophils 71 percent, 9 percent monocytes, 13 percent . Chemistry: Sodium 134, potassium 4.6. Chloride 102, bicarb 25, BUN 17, creatinine 1.93 and glucose of 111. Last glucose of 129, 120 and 120. INR 0.84. MEDICATIONS: 1. Phenylephrine as directed. 2. Propofol as directed. 3. Dextrose. The patient was served D5W at 50 cc an hour. 4. MiraLAX 17 g daily. 5. Atropine p.r.n. 6. Epogen 6 , units every Wednesday, Wednesday, Wednesday. 7. Senna 1 tab b.i.d. 8. Accu-Chek q.a.c. q.h.s., insulin per sliding scale. 9. Hydralazine 50 t.i.d. 10. Prevacid 30 mg daily. 11. Norepinephrine as directed, currently off. 12. Bulger p.r.n., 13. Ativan p.r.n. 14. Benadryl p.r.n. 15. Colace 100 t.i.d. 16. Hydralazine 25 q.4 p.r.n. 17. Milk of Magnesia p.r.n. 18. Hypoglycemia protocol p.r.n.. 19. Nicotine patch 14 mg patch daily. 20. Duoneb p.r.n. 21. Atrovent p.r.n. 22. Uloric 40 mg daily. 23. Zofran, p.r.n. 24. Morphine p.r.n. 25. Colace p.r.n. ASSESSMENT AND PLAN: This is a 66-year-old male with history of Abbi granulomatosis, chronic kidney disease, who presented with 1 week of fever, decreased p.o. intake and weakness, progressively with worsening encephalopathy during his hospitalization requiring intubation and was diagnosed with West Nile encephalitis. 1. Respiratory. Continue full ventilatory support. Failed extubation once. Plan for trach today. A unit of platelets will be transfused prior to procedure. 2. Cardiovascular. Patient with thrombocytopenia. H and H remain stable, off blood thinners secondary to thrombocytopenia. 3. GI, continue Protonix for gastrointestinal prophylaxis. No active bowel. No evidence of active bleeding. Status post G- tube placement. 4. Acute on chronic renal insufficiency. Last dialysis today. Continue to monitor kidney function. Hep-Lock IV fluids. 5. Infectious disease. The patient with West Nile encephalitis. Continue supportive care. The patient was placed on broad-spectrum antibiotics secondary to leukocytosis. Now off antibiotics completely. The patient's white count is normal as currently there is no evidence of active bacterial infection. 6. Encephalopathy secondary to West Nile virus. Continue supportive care. Pending trach today. 7. Acute renal failure. Again, last dialysis today. Continue to monitor kidney function. Monitor electrolytes. Renally dose all meds. Consider transfer to [facility] for further medical management. We will follow. Dictated By: Gurwinder Triplett MD /eladio/ /Document#: [id number]
[2017-02-09] MEDS ORDERED: LIDOCAINE 1% (MPF) 30 ML INJ ONE (20:26)
[2017-02-09] MEDS ORDERED: LIDOCAINE 2%/EPI 30 ML INJ ONE (20:27)
[2017-02-09] MEDS ORDERED: ROCURONIUM 50 MG INJ ONE (20:49)
[2017-02-09] MEDS ORDERED: PROPOFOL 20 ML ONE (20:51)
[2017-02-09] MEDS ORDERED: LIDOCAINE 2% (SDV) 5 ML INJ ONE (20:51)
[2017-02-09] MEDS ORDERED: LABETALOL HCL 20MG INJ IV PRN (21:00)
[2017-02-09] MEDS ORDERED: morphine 10 MG INJ IV PRN (21:00)
[2017-02-09] MEDS ORDERED: LORAZEPAM 2 MG INJ IV PRN (21:00)
[2017-02-09] MEDS ORDERED: morphine 4 MG/ML VIAL IV PRN (21:00)
[2017-02-09] MEDS ORDERED: EPHEDrine SULFATE 50 MG/5 ML SYG IV PRN (21:00)
[2017-02-09] MEDS ORDERED: hydrALAzine 20 MG INJ IV PRN (21:00)
[2017-02-09] MEDS ORDERED: morphine 2 MG INJ IV PRN (21:00)
[2017-02-09] MEDS ORDERED: FENTAnyl 50 MCG/ML VIAL ONE (21:03)
[2017-02-09] MEDS ORDERED: CEFAZOLIN 1 GM INJ ONE (21:12)
--- NOTE | 2017-02-09 22:27 | OPR ---
Date/Time of Note Date/Time of Note DATE: 02/09/17 TIME: 22:25 Operative Report Procedure Date: Feb 09, 2017 Preoperative Diagnosis Resp Failure Postoperative Diagnosis same Operation Performed Tracheostomy and HD cath placement Surgeon see signature line Paint Prepper: NAZARIO WADE MD Anesthesia Type: general, MAC Estimated Blood Loss: none Transfusion Required: no Specimen: none Grafts/Implants: none Complications: no Pt Condition Post Procedure: stable Disposition: other Indications ESRD Operative\Procedure Findings Dictated Procedure Description dictated NAZARIO WADE MD Feb 09, 2017 22:27
--- NOTE | 2017-02-09 23:10 | RADRPT ---
PROCEDURE: XR Chest. CLINICAL INDICATION: Tracheostomy placement of dialysis catheter placement. TECHNIQUE: Single frontal view. COMPARISON: 02/06/2017. FINDINGS: A new tracheostomy tube is in satisfactory position. A right internal jugular vein temporary dialysi s catheter is present with the tip in the upper superior vena cava. A left arm PICC line remains in satisfactory position with the tip in the cavoatrial junction region. The lungs are clear. The heart size is normal. There is calcification in the aorta consistent with atherosclerosis. There is no pleural effusion. There is no pneumothorax. IMPRESSION: 1. Tracheostomy tube and right internal jugular vein temporary dialysis catheter in satisfactory po sition. 2. No pneumothorax. 3. No other new abnormality when compared with 02/06/2017. RPTAT: QQ .Caden Cerna MD, MD Date Time Electronically viewed and signed by .Caden Cerna MD, on 02/09/2017 23:10 .R/
[2017-02-10] VITALS (48 sets, daily range): BP systolic 81–139; BP diastolic 60–81; PULSE 70–108; RESP 10–28
[2017-02-10] MEDS: INSULIN ASPART [NOVOLOG] 3 ML PEN SC SCH ×6 (01:00→21:00)
--- NOTE | 2017-02-10 01:16 | OPR ---
DATE OF OPERATION: 02/10/2017 PREOPERATIVE DIAGNOSIS: 1. Respiratory failure. 2. Renal failure. POSTOPERATIVE DIAGNOSIS: 1. Respiratory failure. 2. Renal failure. OPERATION PERFORMED: 1. Tracheostomy. 2. Right internal jugular vein hemodialysis catheter placement. SURGEON: Natan Holder MD ANESTHESIA: Local. INDICATIONS: Risks, benefits, alternative therapies explained to the patient and the family. Consent obtained. OPERATIVE PROCEDURE: Patient was placed in supine position, prepped and draped in the usual sterile fashion, and 1 percent lidocaine was used throughout the operation for local anesthesia. I made a 1-cm incision 1 fingerbreadth superior to the sternal notch. Incision was taken down to subcutaneous tissue, which was then opened using Metzenbaum scissors. Access was gained into the trachea. Guidewire was advanced through without any difficulty. Subcutaneous tissue was dilated, using progressively larger dilators. Endotracheal tube was removed, an 8 cuffed tracheostomy tube advanced into the trachea, re-sutured to skin using silk sutures and a trach tie. Next, access was gained in the right internal jugular vein. Guidewire was advanced through without any difficulty. Subcutaneous tissue was dilated. A 16- cm dialysis catheter advanced over a guidewire, secured to skin using silk sutures. Both ports of the catheter were aspirated and injected using saline solution. Patient tolerated the procedure well. Dictated By: Natan Holder MD /[email or web address] /Document#: [id number]
[2017-02-10] MEDS: PROPOFOL 100 ML IV SCH ×2 (01:59→05:59)
[2017-02-10] MEDS: ACCU-CHEK XX SCH (02:06)
[2017-02-10 05:24] LABS: ABNORMAL IP MESSAGE 1; BASOPHILS % 0.1 % (0.0-2.0); EOSINOPHILS # 0.3 10^3/ul (0.0-0.5); EOSINOPHILS % 3.9 % (0.0-7.0); HEMATOCRIT 28.9 % (42.0-52.0); HEMOGLOBIN 9.4 g/dl (14.0-18.0); LYMPHOCYTES # 0.6 10^3/ul (0.8-2.9); LYMPHOCYTES % 7.6 % (15.0-51.0); MEAN CORPUSCULAR HEMOGLOBIN 28.8 pg (29.0-33.0); MEAN CORPUSCULAR HGB CONC 32.5 g/dl (32.0-37.0); MEAN CORPUSCULAR VOLUME 88.7 fl (82.0-101.0); MONOCYTE # 0.9 10^3/ul (0.3-0.9); MONOCYTES % 12.2 % (0.0-11.0); NEUTROPHIL # 5.6 10^3/ul (1.6-7.5); NEUTROPHILS % 75.5 % (39.0-77.0); POSITIVE DIFF @See below; RED BLOOD COUNT 3.26 10^6/ul (4.70-6.10); RED CELL DISTRIBUTION WIDTH 18.5 % (11.5-14.5); WHITE BLOOD COUNT 7.5 10^3/ul (4.8-10.8)
[2017-02-10 05:32] LABS: PLATELET COUNT 86 10^3/UL (140-415)
[2017-02-10 05:51] LABS: CALCIUM 8.7 mg/dl (8.4-10.2); CREATININE 1.65 mg/dl (0.61-1.24); MAGNESIUM 1.9 mg/dl (1.7-2.5); PHOSPHORUS 4.7 mg/dl (2.5-4.9); POTASSIUM 3.8 mmol/L (3.5-5.1)
[2017-02-10] MEDS: LANSOPRAZOLE 30 MG CAP NGT SCH (05:59)
[2017-02-10] MEDS: morphine 2 MG INJ IV PRN (06:02)
--- NOTE | 2017-02-10 08:18 | CONS ---
Date/Time of Note Date/Time of Note DATE: 02/10/17 TIME: 08:16 Consult Date/Type/Reason Admit Date/Time Jan 17, 2017 at 17:33 Type of Consultation: cardiology Subjective CARDIOLOGY FOLLOW UP NOTE: D/W STAFF and rhythm was reviewed. pt remains in NSR. no more pauses seen overnight. pt still remains on vent and nonverbal S/P PEG s/p trach 02/09/17 OBJECTIVE: GEN: s/p trach on vent HEENT: NCAT. pupils are equal neck: no JVD, s.p trach. s/p R IJ HD access. CV: RRR. no m/g/r pulm: no wheezing anteriorly. +mild rhonchi. GI: soft, NT ND. no rebound or guarding. s/p PEG ext + B/L LE edema neuro: awake. follows basic commands. psych: calm pleasant Derm;' No active bleeding but multiple echymosis. ECHO: 1. Normal left ventricular systolic function. Normal left ventricular cavity size. Moderate concentric left ventricular hypertrophy. Ejection fraction is visually estimated at 65 %. Tissue Doppler/Mitral Doppler indices are consistent with impaired relaxation (Stage I diastolic dysfunction). 2. Normal appearance and function of the mitral valve with trace physiologic regurgitation. 3. No hemodynamically significant aortic stenosis by doppler. Aortic cusps appear mildly calcified. Mild aortic valve regurgitation. 4. Normal appearance of the tricuspid valve. Unable to obtain RVSP due to minimal presence of tricuspid regurgitation. Objective Vital Signs Date Time Temp Pulse Resp B/P Pulse Ox O2 Delivery O2 Flow Rate FiO2 02/10/17 06:00 104 27 81/71 99 Mechanical Ventilator 02/10/17 05:45 30 02/10/17 04:00 98.4 Intake and Output 02/09/17 02/09/17 02/10/17 15:00 23:00 07:00 Intake Total 831.800 ml 203.425 ml 130.525 ml Output Total 2590 ml 401 ml 385 ml Balance -1758.200 ml -197.575 ml -254.475 ml Results/Medications Result Diagram: 02/10/17 0450 02/10/17 0450 Results 24 hrs Laboratory Tests Test 02/09/17 09:03 02/09/17 13:09 02/09/17 17:11 02/09/17 22:56 Bedside Glucose 120 149 83 102 Test 02/10/17 02:06 02/10/17 04:50 02/10/17 05:18 Bedside Glucose 108 123 White Blood Count 7.5 # Red Blood Count 3.26 L Hemoglobin 9.4 L Hematocrit 28.9 L Mean Corpuscular Volume 88.7 Mean Corpuscular Hemoglobin 28.8 L Mean Corpuscular Hemoglobin Concent 32.5 Red Cell Distribution Width 18.5 H Platelet Count 86 #L Mean Platelet Volume Neutrophils % 75.5 Lymphocytes % 7.6 L Monocytes % 12.2 H Eosinophils % 3.9 Basophils % 0.1 Nucleated Red Blood Cells % 0.0 Neutrophils # 5.6 Lymphocytes # 0.6 L Monocytes # 0.9 Eosinophils # 0.3 Basophils # 0.0 Nucleated Red Blood Cells # 0.0 Sodium Level 137 Potassium Level 3.8 Chloride Level 104 Carbon Dioxide Level 26 Anion Gap 11 Blood Urea Nitrogen 46 #H Creatinine 1.65 H Glucose Level 127 Calcium Level 8.7 Phosphorus Level 4.7 Magnesium Level 1.9 Lab Scanned Report BLOOD TRANSFUSION Medications Current Medications Ondansetron HCl (Zofran Inj) 4 mg Q6H PRN IV NAUSEA AND/OR VOMITING; Start 01/17 at 14:30 Morphine Sulfate (morphine) 2 mg Q4H PRN IV SEVERE PAIN LEVEL 7-10 Last administered on 02/10/17 06:02; Admin Dose 2 MG; Start 01/17/17 at 14:30 Docusate Sodium (Colace) 100 mg Q12H PRN PO CONSTIPATION; Start 01/17/17 at 14: 30 Febuxostat (Uloric) 40 mg DAILY PO Last administered on 02/09/17 09:01; Admin Dose 40 MG; Start 01/18/17 at 09:00 Diphenhydramine HCl (Benadryl) 25 mg Q4H PRN IV CHILLS; Start 01/17/17 at 18:30 Nicotine 1 patch 1 patch DAILY TRANSDERM Last administered on 02/09/17 09:01; Admin Dose 1 PATCH; Start 01/18/17 at 10:30 Acetaminophen (Ofirmev 1000mg/ 100ml Iv) 100 ml @ 400 mls/hr Q4 PRN IVPB FEVER GREATER THAN 100.6 Last administered on 02/04/17 12:00; Admin Dose 400 MLS/HR; Start 01/19/17 at 00:30 Hydralazine HCl (Apresoline) 10 mg Q4H PRN IV hypertension Last administered on 01/27/17 22:20; Admin Dose 10 MG; Start 01/19/17 at 01:00 Miscellaneous Information 1 ea NOTE XX ; Start 01/19/17 at 09:00 Glucose (Glutose) 15 gm Q15M PRN PO DECREASED GLUCOSE; Start 01/19/17 at 09:00 Glucose (Glutose) 22.5 gm Q15M PRN PO DECREASED GLUCOSE; Start 01/19/17 at 09:00 Dextrose (D50w Syringe) 25 ml Q15M PRN IV DECREASED GLUCOSE; Start 01/19/17 at 09:00 Dextrose (D50w Syringe) 50 ml Q15M PRN IV DECREASED GLUCOSE; Start 01/19/17 at 09:00 Glucagon (Glucagen) 1 mg Q15M PRN IM DECREASED GLUCOSE; Start 01/19/17 at 09:00 Glucose (Glutose) 15 gm Q15M PRN BUCCAL DECREASED GLUCOSE; Start 01/19/17 at 09: 00 IV Flush (NS 10 ml) 10 ml PRN PRN IV FLUSH LINE; Start 01/19/17 at 12:00 Diphenhydramine HCl (Benadryl Liquid Cup) 25 mg QHS PRN NGT ITCHING; Start 01/19 at 21:00 Hydralazine HCl (Apresoline) 25 mg Q4H PRN NGT hypertension Last administered on 01/25/17 12:17; Admin Dose 25 MG; Start 01/19/17 at 20:30 Acetaminophen/ Hydrocodone Bitart ([place] (5/325)) 1 tab Q6H PRN NGT MODERATE PAIN LEVEL 4-6; Start 01/20/17 at 02:30 Magnesium Hydroxide (Milk Of Mag) 30 ml DAILY PRN NGT CONSTIPATION; Start at 20:30 Acetaminophen (Tylenol Liquid) 1,000 mg Q4H PRN NGT PAIN AND OR ELEVATED TEMP; Start 01/19/17 at 20:30; Status Future Hold Docusate Sodium (Colace Liquid Cup) 100 mg TID NGT Last administered on 22:52; Admin Dose 100 MG; Start 01/19/17 at 21:00 Lorazepam (Ativan) 2 mg Q6H PRN IV before LP and MRI Last administered on 11:28; Admin Dose 2 MG; Start 01/20/17 at 00:00 Lansoprazole 30 mg 30 mg DAILY@06 NGT Last administered on 02/10/17 05:59; Admin Dose 30 MG; Start 01/21/17 at 06:00 Norepinephrine/ Dextrose (Levophed/D5W) 500 ml @ 1.87 mls/hr TITRATE IV ; Start 01/20/17 at 17:30 Diagnostic Test (Pha) (Accu-Chek) 1 ea 02 XX Last administered on 02/10/17 02: 06; Admin Dose 1 EA; Start 02/01/17 at 02:00 Insulin Aspart (Novolog Insulin Pen) NOVOLOG *MODERATE* ALGORI... Q4 SC Last administered on 02/09/17 13:11; Admin Dose 2 UNIT; Start 01/31/17 at 21:00 Epoetin Efrain (Epogen (Neserd)) 6,000 units MoWeFr@17 SC Last administered on 17:03; Admin Dose 6,000 UNITS; Start 02/01/17 at 17:00 Senna (Senokot) 1 tab BID PRN PO CONSTIPATION; Start 02/01/17 at 17:00 Polyethylene Glycol (Miralax) 17 gm DAILY PO Last administered on 02/09/17 09: 00; Admin Dose 17 GM; Start 02/02/17 at 09:00 Atropine Sulfate 1 mg 1 mg PRN PRN IV DECREASED HEART RATE; Start 02/02/17 at 02:00 Propofol 100 ml @ 2.295 mls/ hr Q12H IV Last administered on 02/10/17 05:59; Admin Dose 13.77 MLS/HR; Start 02/04/17 at 08:30 Phenylephrine HCl/ Dextrose (Cedrick-Syneph/D5W) 500 ml @ 75 mls/hr TITRATE IV Last administered on 02/06/17 01:19; Admin Dose 22.5 MLS/HR; Start 02/04/17 at 09:00 Assessment/Plan Chief Complaint/Hosp Course Assessment/ Recommendations: 1. SICK SINUS syndrome: with long pauses. probably vasovagal: currently stable will closely monitor on tele for now. he has remained stable over the past few days. 2. encephalopathy, west nile virus: improving defer to ID and neuro rec 3. ESRD: on HD now f/u with renal 4. HTN: currently stable./ low will dc hydralazine. 5. anemia; stable . 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 resp failure; now s/p trach. cont vent support. THANK YOU HERIBERTO FROST MD [facility] Problems: HERIBERTO FROST MD Feb 10, 2017 08:18
--- NOTE | 2017-02-10 08:29 | PN ---
DATE: 02/10/2017 SUBJECTIVE DATA: Yesterday the patient had a trach placed as well as a dialysis catheter in the right internal jugular. No other events noted. No hemoptysis, hematemesis, hematochezia. OBJECTIVE DATA: VITAL SIGNS: Blood pressure is 81/71, respirations 27, pulse 104, temperature 98.4. HEENT: Head is normocephalic. NECK: Supple. HEART: Regular rate. LUNGS: Diminished breath sounds at the base. ABDOMEN: Soft, nontender to palpation. No rebound or guarding. EXTREMITIES: Negative for clubbing, cyanosis. No edema. DERMATOLOGIC: Clean. No rashes. MUSCULOSKELETAL: No joint effusion. NEUROLOGIC: No change in exam. MEDICATIONS: Reviewed. LABORATORY AND DIAGNOSTIC DATA: Shows sodium 137, potassium 3.8, BUN 46, creatinine 1.65. White count 7.5, hemoglobin 9.4, hematocrit 22.9, platelet count is 86. ASSESSMENT AND PLAN: 1. Nonoliguric acute kidney injury on top of chronic kidney disease with previous baseline creatinine 1.7 to 2.0 mg/dL. Etiology of acute kidney injury secondary to acute tubular necrosis. The patient is status post hemodialysis. At this point, we will hold dialysis and monitor for any signs of recovery. 2. Hyponatremia, improved. 3. Anemia. Monitor H and H levels. We will give Epogen as needed. 4. Hypokalemia, resolved. 5. Mineral bone disorder. Monitor calcium and phosphorus levels. 6. Hypomagnesemia, resolved. 7. Ventilatory-dependent respiratory failure. The patient is status post tracheostomy, vent settings have been reviewed. 8. 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 The patient is status post IVIG. Continue medical management. Follow up with Neurology. 9. History of Abbi's granulomatosis, status post Rituxan. 10. Gastrointestinal and deep venous thrombosis prophylaxis. Dictated By: Jim Sierra DO /[email or web address] /Document#: [id number]
[2017-02-10] MEDS: DOCUSATE SODIUM 10 MG/ML (10ML CUP) NGT SCH ×3 (09:00→21:00)
[2017-02-10] MEDS: POLYETHYLENE GLYCOL 17 GM PACKET PO SCH (09:00)
[2017-02-10] MEDS: NICOTINE (14 MG/24 HR) PATCH TRANSDERM SCH (09:00)
[2017-02-10] MEDS: FEBUXOSTAT 40 MG TABLET PO SCH (09:32)
[2017-02-10] MEDS: HYDROCODONE/APAP (5/325) TAB NGT PRN ×2 (09:32→17:54)
--- NOTE | 2017-02-10 10:03 | CONS ---
Date/Time of Note Date/Time of Note DATE: 02/10/17 TIME: 10:01 Consult Date/Type/Reason Admit Date/Time Jan 17, 2017 at 17:33 Type of Consultation: Pulmonary Subjective Patient stable following tracheostomy placement. Remains hemodynamically stable at present. Objective Vital Signs Date Time Temp Pulse Resp B/P Pulse Ox O2 Delivery O2 Flow Rate FiO2 02/10/17 08:00 90 02/10/17 07:41 24 100 30 02/10/17 06:00 81/71 Mechanical Ventilator 02/10/17 04:00 98.4 Intake and Output 02/09/17 02/09/17 02/10/17 15:00 23:00 07:00 Intake Total 831.800 ml 203.425 ml 130.525 ml Output Total 2590 ml 401 ml 385 ml Balance -1758.200 ml -197.575 ml -254.475 ml Exam PHYSICAL EXAMINATION GENERAL: Elderly gentleman on mechanical ventilation, opens eyes and appears somewhat agitated. VITAL SIGNS: see below. HEENT: Pupils equal, round, and reactive to light. CARDIAC: S1, S2, no added sounds or murmurs. CHEST: Diminished air entry bilaterally. ABDOMEN: Mildly distended. Bowel sounds present no guarding or rebound EXTREMITIES: No cyanosis, clubbing edema +1 NEUROLOGIC: Generalized weakness Results/Medications Result Diagram: 02/10/17 0450 02/10/17 0450 Results 24 hrs Laboratory Tests Test 02/09/17 13:09 02/09/17 17:11 02/09/17 22:56 02/10/17 02:06 Bedside Glucose 149 83 102 108 Test 02/10/17 04:50 02/10/17 05:18 02/10/17 09:30 White Blood Count 7.5 # Red Blood Count 3.26 L Hemoglobin 9.4 L Hematocrit 28.9 L Mean Corpuscular Volume 88.7 Mean Corpuscular Hemoglobin 28.8 L Mean Corpuscular Hemoglobin Concent 32.5 Red Cell Distribution Width 18.5 H Platelet Count 86 #L Mean Platelet Volume Neutrophils % 75.5 Lymphocytes % 7.6 L Monocytes % 12.2 H Eosinophils % 3.9 Basophils % 0.1 Nucleated Red Blood Cells % 0.0 Neutrophils # 5.6 Lymphocytes # 0.6 L Monocytes # 0.9 Eosinophils # 0.3 Basophils # 0.0 Nucleated Red Blood Cells # 0.0 Sodium Level 137 Potassium Level 3.8 Chloride Level 104 Carbon Dioxide Level 26 Anion Gap 11 Blood Urea Nitrogen 46 #H Creatinine 1.65 H Glucose Level 127 Bedside Glucose 123 116 Calcium Level 8.7 Phosphorus Level 4.7 Magnesium Level 1.9 Lab Scanned Report BLOOD TRANSFUSION Medications Current Medications Ondansetron HCl (Zofran Inj) 4 mg Q6H PRN IV NAUSEA AND/OR VOMITING; Start 01/17 at 14:30 Morphine Sulfate (morphine) 2 mg Q4H PRN IV SEVERE PAIN LEVEL 7-10 Last administered on 02/10/17 06:02; Admin Dose 2 MG; Start 01/17/17 at 14:30 Docusate Sodium (Colace) 100 mg Q12H PRN PO CONSTIPATION; Start 01/17/17 at 14: 30 Febuxostat (Uloric) 40 mg DAILY PO Last administered on 02/10/17 09:32; Admin Dose 40 MG; Start 01/18/17 at 09:00 Diphenhydramine HCl 25 mg 25 mg Q4H PRN IV CHILLS; Start 01/17/17 at 18:30 Acetaminophen (Ofirmev 1000mg/ 100ml Iv) 100 ml @ 400 mls/hr Q4 PRN IVPB FEVER GREATER THAN 100.6 Last administered on 02/04/17 12:00; Admin Dose 400 MLS/HR; Start 01/19/17 at 00:30 Hydralazine HCl (Apresoline) 10 mg Q4H PRN IV hypertension Last administered on 01/27/17 22:20; Admin Dose 10 MG; Start 01/19/17 at 01:00 Miscellaneous Information 1 ea NOTE XX ; Start 01/19/17 at 09:00 Glucose (Glutose) 15 gm Q15M PRN PO DECREASED GLUCOSE; Start 01/19/17 at 09:00 Glucose (Glutose) 22.5 gm Q15M PRN PO DECREASED GLUCOSE; Start 01/19/17 at 09:00 Dextrose (D50w Syringe) 25 ml Q15M PRN IV DECREASED GLUCOSE; Start 01/19/17 at 09:00 Dextrose (D50w Syringe) 50 ml Q15M PRN IV DECREASED GLUCOSE; Start 01/19/17 at 09:00 Glucagon (Glucagen) 1 mg Q15M PRN IM DECREASED GLUCOSE; Start 01/19/17 at 09:00 Glucose (Glutose) 15 gm Q15M PRN BUCCAL DECREASED GLUCOSE; Start 01/19/17 at 09: 00 IV Flush (NS 10 ml) 10 ml PRN PRN IV FLUSH LINE; Start 01/19/17 at 12:00 Diphenhydramine HCl (Benadryl Liquid Cup) 25 mg QHS PRN NGT ITCHING; Start 01/19 at 21:00 Hydralazine HCl (Apresoline) 25 mg Q4H PRN NGT hypertension Last administered on 01/25/17 12:17; Admin Dose 25 MG; Start 01/19/17 at 20:30 Acetaminophen/ Hydrocodone Bitart ([place] (5/325)) 1 tab Q6H PRN NGT MODERATE PAIN LEVEL 4-6 Last administered on 02/10/17 09:32; Admin Dose 1 TAB; Start 01/20/17 at 02:30 Magnesium Hydroxide (Milk Of Mag) 30 ml DAILY PRN NGT CONSTIPATION; Start at 20:30 Acetaminophen (Tylenol Liquid) 1,000 mg Q4H PRN NGT PAIN AND OR ELEVATED TEMP; Start 01/19/17 at 20:30; Status Future Hold Docusate Sodium (Colace Liquid Cup) 100 mg TID NGT Last administered on 22:52; Admin Dose 100 MG; Start 01/19/17 at 21:00 Lorazepam (Ativan) 2 mg Q6H PRN IV before LP and MRI Last administered on 11:28; Admin Dose 2 MG; Start 01/20/17 at 00:00 Lansoprazole 30 mg 30 mg DAILY@06 NGT Last administered on 02/10/17 05:59; Admin Dose 30 MG; Start 01/21/17 at 06:00 Norepinephrine/ Dextrose (Levophed/D5W) 500 ml @ 1.87 mls/hr TITRATE IV ; Start 01/20/17 at 17:30 Diagnostic Test (Pha) (Accu-Chek) 1 ea 02 XX Last administered on 02/10/17 02: 06; Admin Dose 1 EA; Start 02/01/17 at 02:00 Insulin Aspart (Novolog Insulin Pen) NOVOLOG *MODERATE* ALGORI... Q4 SC Last administered on 02/09/17 13:11; Admin Dose 2 UNIT; Start 01/31/17 at 21:00 Epoetin Efrain (Epogen (Neserd)) 6,000 units MoWeFr@17 SC Last administered on 17:03; Admin Dose 6,000 UNITS; Start 02/01/17 at 17:00 Senna (Senokot) 1 tab BID PRN PO CONSTIPATION; Start 02/01/17 at 17:00 Polyethylene Glycol (Miralax) 17 gm DAILY PO Last administered on 02/09/17 09: 00; Admin Dose 17 GM; Start 02/02/17 at 09:00 Atropine Sulfate 1 mg 1 mg PRN PRN IV DECREASED HEART RATE; Start 02/02/17 at 02:00 Propofol 100 ml @ 2.295 mls/ hr Q12H IV Last administered on 02/10/17 05:59; Admin Dose 13.77 MLS/HR; Start 02/04/17 at 08:30 Phenylephrine HCl/ Dextrose (Cedrick-Syneph/D5W) 500 ml @ 75 mls/hr TITRATE IV Last administered on 02/06/17 01:19; Admin Dose 22.5 MLS/HR; Start 02/04/17 at 09:00 Assessment/Plan Chief Complaint/Hosp Course IMPRESSION: 1. Hypoxemic respiratory failure requiring reintubation, Status post tracheostomy 2. 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 3. Renal insufficiency 4. Hx Lung Ca 5. Abbi granulomatosis. 6. Status post PEG tube placement continue tube feeding as tolerated PLAN: 1. Patient unable to protect airway secretions. Continue trach care. 2. Supportive care for West Nile virus 3. ID recs 4. DVT and GI prophylaxis. Continue current level of care. Critical care time 40 minutes. Patient would benefit from Farfan unit stable for transfer out of ICU today. Problems: CAROL DÍAZ MD, [facility] Feb 10, 2017 10:03
--- NOTE | 2017-02-10 12:40 | PN ---
DATE: 02/10/2017 SUBJECTIVE DATA: The patient is status post trach and right IJ Jesus Manuel cath placement. The patient tolerated the procedures well. He did receive a 1 unit of platelets prior to procedure. The patient is status post hemodialysis yesterday and we will continue to monitor renal function. The family is at bedside. Case discussed. The patient appears to be more alert now on 10 mcg of propofol. The patient following command, smiling, definitely improving. OBJECTIVE DATA: VITAL SIGNS: Temperature 99.1, pulse 86, respirations 17, blood pressure 116/71, saturation 100 percent on 30 percent FiO2. GENERAL: Patient is in no acute distress. Patient is pale, trach in place. Right IJ catheter is in place. HEART: S1, S2. Regular rate. LUNGS: Decreased bilaterally. ABDOMEN: Soft, slightly distended. EXTREMITIES: Trace to +1 edema throughout. SKIN: Some skin ecchymoses throughout his body. LABORATORY AND DIAGNOSTIC DATA: White count is 7.5, hemoglobin 9.4, hematocrit 29, platelet count 86, status post 1 unit of platelets. Neutrophil count 76, lymphocytes 8 percent. Chemistry: Sodium 137, potassium 3.8, chloride 104, bicarb 26, BUN is 46, creatinine 1.65 and glucose of 127. Last glucose of 116 and 123, so good glycemic control. Chest x-ray done 02/09, yesterday, shows tracheotomy tube in the right internal jugular vein, temporary dialysis catheter in satisfactory position. No pneumothorax. MEDICATIONS: Reviewed as well and include: 1. Propofol as directed. 2. MiraLAX 17 g daily. 3. Atropine p.r.n. 4. Epogen 6000 every Wednesday, Wednesday, Wednesday. is not given if it is not indicated. 5. Senna 1 tab p.r.n. b.i.d. 6. Accu-Chek before meals and at bedtime. 7. Insulin aspart per sliding scale. 8. Prevacid 10 mg daily. 9. [place] 1 tab q.6 p.r.n. 10. Ativan 2 mg IV q.6 p.r.n. 11. Benadryl p.r.n. 12. Colace 100 t.i.d. 13. Hydralazine 25 q.4 p.r.n. 14. Milk of Magnesia p.r.n. 15. Hypoglycemia protocol as directed. 16. Hydralazine p.r.n. 17. Tylenol p.r.n. 18. DuoNeb p.r.n. 19. Atrovent p.r.n. 20. Uloric 40 mg p.o. daily. 21. Zofran p.r.n. 22. Morphine p.r.n. 23. Colace p.r.n. ASSESSMENT AND PLAN: This is a 66-year-old male with history of Abbi granulomatosis, chronic kidney disease, who presented initially with 1 week of fever, decreased oral intake and weakness. Unfortunately, he had progressive worsening encephalopathy requiring intubation. Also hospital course complicated by worsening kidney function, now on dialysis, possible aspiration pneumonia, thrombocytopenia. 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 1. Respiratory: On full ventilatory support, on AC mode. Further weaning will be initiated soon. Plan to transfer him to [facility]. 2. Cardiovascular: Patient's vitals are stable. The patient with thrombocytopenia. Heparin is on hold. 3. GI: H and H stable. Continue proton pump inhibitor for gastrointestinal prophylaxis. The patient had a gastrostomy tube. Continue feeding. 4. Tmruv-kt-[id number] renal insufficiency. Last dialysis yesterday. We will evaluate for renal recovery. Hopefully, he can be off dialysis. 5. Infectious disease: Patient with West Nile encephalitis. Continue supportive care. Now off antibiotics, white count remains normal, and patient is afebrile. 6. Encephalopathy related to his West Nile virus. Again, supportive care. 7. Thrombocytopenia is possibly secondary to heparin versus medication induced. We will continue to monitor trend. Status post 1 unit of platelets. I anticipate that to improve. Case discussed with family at bedside. The patient is stable to be transferred out of the intensive care unit. We will follow. Dictated By: Gurwinder Triplett MD /eladio/jose /Document#: [id number]
--- NOTE | 2017-02-10 13:38 | PN ---
DATE: 02/10/2017 SUBJECTIVE DATA: No acute changes. The patient is status post tracheostomy. He is awake, looks comfortable and in no distress. OBJECTIVE DATA: VITAL SIGNS: Temperature 99.1, pulse 78, respirations 14, blood pressure 116/73, saturation 100 on vent. LABORATORY AND DIAGNOSTIC DATA: WBC today is 7.5, H and H 9.4 and 28.9, platelets 86, neutrophils 75.5. BUN 46, creatinine 1.65. INDWELLINGS: Trach, PEG, Darden, right IJ Jesus Manuel catheter and left upper extremity AV fistula. ANTIMICROBIALS: The patient is off antibiotics. PHYSICAL EXAMINATION: GENERAL: This is a well-developed, well-nourished, fragile elderly man, who is awake and in no distress. HEENT: Head atraumatic, normocephalic. Sclerae anicteric. Buccal mucosa dry. NECK: With tracheostomy. LUNGS: Chest rise symmetrical. Breath sounds clear. HEART: S1, S2. ABDOMEN: Soft, bowel sounds present. EXTREMITIES: With trace dependent edema. ASSESSMENT: 1. Status post septic shock. 2. Respiratory failure, failed multiple weaning trials, status post tracheostomy placement. 3. West Nile virus encephalitis. 4. History of Abbi's granulomatosis, on Rituxan outpatient. 5. Tvvkn-pz-xakpqxz kidney disease, started on hemodialysis on this admission. 6. Dysphagia status post percutaneous endoscopic gastrostomy. PLAN: The patient remains stable off antibiotics. Continue present care. Vent management as per Pulmonary. Repeat cultures p.r.n. Dictated By: Giancarlo Hodges NP /eladio/jose /Document#: [id number]
--- NOTE | 2017-02-10 16:45 | CONS ---
Date/Time of Note Date/Time of Note DATE: 02/10/17 TIME: 16:44 Assessment/Plan Assessment/Plan Additional Assessment/Plan Additional Assessment/Plan IMPRESSION: 1. Status post septic shock. 2. Jc's granulomatosis. 3. History of lung cancer, for which he had a dissection. 4. 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 5. Renal failure on hemodialysis. 6. Respiratory failure. 7. Dysphagia. 8. Anemia. 9. Status post a PEG and is status post tracheostomy Plan Patient is tolerating feeding, increase it slowly until the goal is achieved Continue present care Consultation Date/Type/Reason Admit Date/Time Jan 17, 2017 at 17:33 Type of Consultation: Pulmonary 24 HR Interval Summary Subjective hx not possible: pt non-verbal, pt critical Exam/Review of Systems Vital Signs Vitals Vital Signs Date Time Temp Pulse Resp B/P Pulse Ox O2 Delivery O2 Flow Rate FiO2 02/10/17 15:18 87 18 99 30 02/10/17 14:30 135/81 02/10/17 14:00 Mechanical Ventilator 02/10/17 12:00 98.5 Intake and Output 02/09/17 02/09/17 02/10/17 15:00 23:00 07:00 Intake Total 831.800 ml 203.425 ml 142.000 ml Output Total 2590 ml 401 ml 385 ml Balance -1758.200 ml -197.575 ml -243.000 ml Exam Constitutional: alert, oriented, well developed Psych: nl mood/affect, no complaints Head: atraumatic, normocephalic Eyes: EOMI, PERRL, nl conjunctiva, nl lids, nl sclera ENMT: nl external ears & nose, nl lips & teeth, nl nasal mucosa & septum Neck: non-tender, supple Respiratory: clear to auscultation, normal air movement Cardiovascular: nl pulses, regular rate and rhythm Gastrointestinal: nl liver, spleen, non-tender, soft Musculoskeletal: nl extremities to inspection, nl gait and stance Extremities: normal pulses Neurological: PREDATORY ANIMAL TRAPPER II-XII intact, nl mental status, nl speech, nl strength Skin: nl turgor, No rash or lesions Lymph: nl lymph nodes Results Result Diagram: 02/10/17 0450 02/10/17 0450 Results 24 hrs Laboratory Tests Test 02/09/17 17:11 02/09/17 22:56 02/10/17 02:06 02/10/17 04:50 Bedside Glucose 83 102 108 123 White Blood Count 7.5 # Red Blood Count 3.26 L Hemoglobin 9.4 L Hematocrit 28.9 L Mean Corpuscular Volume 88.7 Mean Corpuscular Hemoglobin 28.8 L Mean Corpuscular Hemoglobin Concent 32.5 Red Cell Distribution Width 18.5 H Platelet Count 86 #L Mean Platelet Volume Neutrophils % 75.5 Lymphocytes % 7.6 L Monocytes % 12.2 H Eosinophils % 3.9 Basophils % 0.1 Nucleated Red Blood Cells % 0.0 Neutrophils # 5.6 Lymphocytes # 0.6 L Monocytes # 0.9 Eosinophils # 0.3 Basophils # 0.0 Nucleated Red Blood Cells # 0.0 Sodium Level 137 Potassium Level 3.8 Chloride Level 104 Carbon Dioxide Level 26 Anion Gap 11 Blood Urea Nitrogen 46 #H Creatinine 1.65 H Glucose Level 127 Calcium Level 8.7 Phosphorus Level 4.7 Magnesium Level 1.9 Test 02/10/17 05:18 02/10/17 09:30 02/10/17 13:17 Lab Scanned Report BLOOD TRANSFUSION Bedside Glucose 116 122 Medications Medications Current Medications Ondansetron HCl (Zofran Inj) 4 mg Q6H PRN IV NAUSEA AND/OR VOMITING; Start 01/17 at 14:30 Morphine Sulfate (morphine) 2 mg Q4H PRN IV SEVERE PAIN LEVEL 7-10 Last administered on 02/10/17 06:02; Admin Dose 2 MG; Start 01/17/17 at 14:30 Docusate Sodium (Colace) 100 mg Q12H PRN PO CONSTIPATION; Start 01/17/17 at 14: 30 Febuxostat (Uloric) 40 mg DAILY PO Last administered on 02/10/17 09:32; Admin Dose 40 MG; Start 01/18/17 at 09:00 Diphenhydramine HCl 25 mg 25 mg Q4H PRN IV CHILLS; Start 01/17/17 at 18:30 Acetaminophen (Ofirmev 1000mg/ 100ml Iv) 100 ml @ 400 mls/hr Q4 PRN IVPB FEVER GREATER THAN 100.6 Last administered on 02/04/17 12:00; Admin Dose 400 MLS/HR; Start 01/19/17 at 00:30 Hydralazine HCl (Apresoline) 10 mg Q4H PRN IV hypertension Last administered on 01/27/17 22:20; Admin Dose 10 MG; Start 01/19/17 at 01:00 Miscellaneous Information 1 ea NOTE XX ; Start 01/19/17 at 09:00 Glucose (Glutose) 15 gm Q15M PRN PO DECREASED GLUCOSE; Start 01/19/17 at 09:00 Glucose (Glutose) 22.5 gm Q15M PRN PO DECREASED GLUCOSE; Start 01/19/17 at 09:00 Dextrose (D50w Syringe) 25 ml Q15M PRN IV DECREASED GLUCOSE; Start 01/19/17 at 09:00 Dextrose (D50w Syringe) 50 ml Q15M PRN IV DECREASED GLUCOSE; Start 01/19/17 at 09:00 Glucagon (Glucagen) 1 mg Q15M PRN IM DECREASED GLUCOSE; Start 01/19/17 at 09:00 Glucose (Glutose) 15 gm Q15M PRN BUCCAL DECREASED GLUCOSE; Start 01/19/17 at 09: 00 IV Flush (NS 10 ml) 10 ml PRN PRN IV FLUSH LINE; Start 01/19/17 at 12:00 Diphenhydramine HCl (Benadryl Liquid Cup) 25 mg QHS PRN NGT ITCHING; Start 01/19 at 21:00 Hydralazine HCl (Apresoline) 25 mg Q4H PRN NGT hypertension Last administered on 01/25/17 12:17; Admin Dose 25 MG; Start 01/19/17 at 20:30 Acetaminophen/ Hydrocodone Bitart ([place] (5/325)) 1 tab Q6H PRN NGT MODERATE PAIN LEVEL 4-6 Last administered on 02/10/17 09:32; Admin Dose 1 TAB; Start 01/20/17 at 02:30 Magnesium Hydroxide (Milk Of Mag) 30 ml DAILY PRN NGT CONSTIPATION; Start at 20:30 Acetaminophen (Tylenol Liquid) 1,000 mg Q4H PRN NGT PAIN AND OR ELEVATED TEMP; Start 01/19/17 at 20:30; Status Future Hold Docusate Sodium (Colace Liquid Cup) 100 mg TID NGT Last administered on 22:52; Admin Dose 100 MG; Start 01/19/17 at 21:00 Lorazepam (Ativan) 2 mg Q6H PRN IV before LP and MRI Last administered on 11:28; Admin Dose 2 MG; Start 01/20/17 at 00:00 Lansoprazole (Prevacid) 30 mg DAILY@06 NGT Last administered on 02/10/17 05:59 ; Admin Dose 30 MG; Start 01/21/17 at 06:00 Diagnostic Test (Pha) (Accu-Chek) 1 ea 02 XX Last administered on 02/10/17 02: 06; Admin Dose 1 EA; Start 02/01/17 at 02:00 Insulin Aspart (Novolog Insulin Pen) NOVOLOG *MODERATE* ALGORI... Q4 SC Last administered on 02/09/17 13:11; Admin Dose 2 UNIT; Start 01/31/17 at 21:00 Epoetin Efrain (Epogen (Neserd)) 6,000 units MoWeFr@17 SC Last administered on 17:03; Admin Dose 6,000 UNITS; Start 02/01/17 at 17:00 Senna (Senokot) 1 tab BID PRN PO CONSTIPATION; Start 02/01/17 at 17:00 Polyethylene Glycol (Miralax) 17 gm DAILY PO Last administered on 02/09/17 09: 00; Admin Dose 17 GM; Start 02/02/17 at 09:00 Atropine Sulfate (Atropine (Syringe)) 1 mg PRN PRN IV DECREASED HEART RATE; Start 02/02/17 at 02:00 SANJEEV CORTES MD Feb 10, 2017 16:45
--- NOTE | 2017-02-10 17:14 | PN ---
Date/Time of Note Date/Time of Note DATE: 02/10/17 TIME: 17:13 Assessment/Plan Lines/Catheters IV Catheter Type (from Nrsg): TRIALASIS HD CATH Darden in Place (from Nrsg): Yes Assessment/Plan Chief Complaint/Hosp Course Resp failureSP tracheostomy will continue trach [facility] toilet Problems: Subjective 24 Hr Interval Summary Constitutional: improved Pain Control: mild Exam/Review of Systems Vital Signs Vitals Vital Signs Date Time Temp Pulse Resp B/P Pulse Ox O2 Delivery O2 Flow Rate FiO2 02/10/17 16:00 88 02/10/17 15:18 18 99 30 02/10/17 14:30 135/81 02/10/17 14:00 Mechanical Ventilator 02/10/17 12:00 98.5 Intake and Output 02/09/17 02/09/17 02/10/17 15:00 23:00 07:00 Intake Total 831.800 ml 203.425 ml 142.000 ml Output Total 2590 ml 401 ml 385 ml Balance -1758.200 ml -197.575 ml -243.000 ml Exam ENMT: mucosa pink and moist, nl external ears & nose, nl lips & teeth, nl nasal mucosa & septum Neck: non-tender, supple Respiratory: clear to auscultation, normal air movement Cardiovascular: nl pulses, regular rate and rhythm Gastrointestinal: nl liver, spleen, non-tender, soft Results Result Diagram: 02/10/17 0450 02/10/17449 NAZARIO WADE MD Feb 10, 2017 17:14
[2017-02-10] MEDS: EPOETIN ALFA (NESRD) 3,000 UNITS/ML VIAL SC SCH (17:21)
--- NOTE | 2017-02-10 19:59 | PDOCDIS ---
Discharge Instructions CONDITION Patient Condition: Stable HOME CARE INSTRUCTIONS: Special Diet: tube feeds FOLLOW UP/APPOINTMENTS Follow-up Plan transfer to [facility], continue all orders BILLY DANIELS MD Feb 10, 2017 19:59
== END 2017-02-11 01:18 | DRG 4 ==
LOC: E/R 09:30 → MS2 13:40 → OBSVTOIN 17:33 → ICU 01-19 01:24
PROVIDERS: ADMIT Internal Medicine; ATTEND Internal Medicine
PROC: 5A1955Z Respiratory Ventilation, Greater than 96 Consecutive Hours (ICD-10-PCS; principal; 2017-01-19)
PROC: 0BH17EZ Insertion of Endotracheal Airway into Trachea, Via Natural or Artificial Opening (ICD-10-PCS; 2017-01-19)
PROC: 009U3ZX Drainage of Spinal Canal, Percutaneous Approach, Diagnostic (ICD-10-PCS; 2017-01-19)
PROC: B01BYZZ Fluoroscopy of Spinal Cord using Other Contrast (ICD-10-PCS; 2017-01-19)
PROC: 02HV33Z Insertion of Infusion Device into Superior Vena Cava, Percutaneous Approach (ICD-10-PCS; 2017-01-19)
PROC: 009U3ZX Drainage of Spinal Canal, Percutaneous Approach, Diagnostic (ICD-10-PCS; 2017-01-27)
PROC: B01BYZZ Fluoroscopy of Spinal Cord using Other Contrast (ICD-10-PCS; 2017-01-27)
PROC: 06HM33Z Insertion of Infusion Device into Right Femoral Vein, Percutaneous Approach (ICD-10-PCS; 2017-01-29)
PROC: 5A1D60Z (ICD-10-PCS; 2017-01-29)
PROC: 30233N1 Transfusion of Nonautologous Red Blood Cells into Peripheral Vein, Percutaneous Approach (ICD-10-PCS; 2017-02-02)
PROC: 0DH63UZ Insertion of Feeding Device into Stomach, Percutaneous Approach (ICD-10-PCS; 2017-02-08)
PROC: 30233R1 Transfusion of Nonautologous Platelets into Peripheral Vein, Percutaneous Approach (ICD-10-PCS; 2017-02-09)
PROC: 0B110F4 Bypass Trachea to Cutaneous with Tracheostomy Device, Open Approach (ICD-10-PCS; 2017-02-10)
PROC: 05HM33Z Insertion of Infusion Device into Right Internal Jugular Vein, Percutaneous Approach (ICD-10-PCS; 2017-02-10)
DX: A41.89 Other specified sepsis (principal); A92.31 West Nile virus infection with encephalitis; R65.21 Severe sepsis with septic shock; G93.6 Cerebral edema; N17.0 Acute kidney failure with tubular necrosis; G93.49 Other encephalopathy; M31.31 Wegener's granulomatosis with renal involvement; J69.0 Pneumonitis due to inhalation of food and vomit; J96.01 Acute respiratory failure with hypoxia; E87.1 Hypo-osmolality and hyponatremia; I12.9 Hypertensive chronic kidney disease with stage 1 through stage 4 chronic kidney disease, or unspecified chronic kidney disease; N18.3 Chronic kidney disease, stage 3 (moderate); K29.70 Gastritis, unspecified, without bleeding; K26.9 Duodenal ulcer, unspecified as acute or chronic, without hemorrhage or perforation; F12.20 Cannabis dependence, uncomplicated; F17.200 Nicotine dependence, unspecified, uncomplicated; E86.0 Dehydration; E83.42 Hypomagnesemia; E87.6 Hypokalemia; E87.70 Fluid overload, unspecified; D64.9 Anemia, unspecified; J44.9 Chronic obstructive pulmonary disease, unspecified; J32.4 Chronic pansinusitis; M10.9 Gout, unspecified; R73.9 Hyperglycemia, unspecified; R13.10 Dysphagia, unspecified; Z79.899 Other long term (current) drug therapy; Z85.118 Personal history of other malignant neoplasm of bronchus and lung
CPT/HCPCS: 31500; 36415; 36430; 36569; 36600; 70450; 70551; 71010; 71250; 74176; 76700; 76705; 76937; 78806; 80048; 80053; 80076; 80202; 81001; 81003; 82043; 82140; 82550; 82553; 82570; 82607; 82746; 82784; 82785; 82803; 82945; 82962; 83036; 83520; 83540; 83605; 83615; 83690; 83735; 84100; 84145; 84153; 84154; 84155; 84157; 84300; 84443; 84484; 84560; 85025; 85045; 85610; 85651; 85730; 86140; 86360; 86403; 86592; 86603; 86617; 86635; 86638; 86644; 86664; 86694; 86698; 86703; 86777; 86788; 86789; 86850; 86900; 86901; 86920; 87040; 87070; 87077; 87081; 87086; 87102; 87210; 87275; 87276; 87279; 87280; 87385; 87400; 87449; 87529; 87591; 89051; 89220; 90935; 92523; 92610; 93005; 93306; 94002; 94003; 94660; 94664; 94770; 94799; 95819; 96372; 96374; J1940; A9570; C1752; G0378; J0131; J0133; J0295; J0360; J0461; J0690; J0885; J1100; J1200; J1566; J1644; J1815; J1953; J1956; J2060; J2185; J2270; J2370; J2543; J2930; J3010; J3370; J3475; J3480; J7030; J7040; J7042; J7050; J7060; J7070; J7999; P9016; P9035; Q4081

== ENCOUNTER → 2017-02-11 | Outpatient (CLI) | payer MEDICARE ==
[~2017-02-11] MED LIST: DEXL60CA2 PO; DILT240C79 PO; DIPH25CA6 PO; DOCU-159 PO; FEBU40TA PO; LORA10TA3 PO; LOSA50TA6 PO; ZOLP10TA5 PO
[2017-02-11 22:42] VITALS: RESP 17
--- NOTE | 2017-02-11 23:07 | RADRPT ---
PROCEDURE: CT Abdomen and Pelvis without contrast. CLINICAL INDICATION: Abdominal and pelvic pain. TECHNIQUE: CT scan of the abdomen and pelvis without contrast was performed. Coronal and sagittal reformatted images were obtained from the axial source images. Images were reviewed on a high-[employer] PACS workstation. Total exam DLP is 1034.77 mGy-cm. CTDIvol is 18.21 mGy. One or more of the following dose reduction techniques were used: Automated exposure control, adjustment of the mA and/ or kV according to patient size, use of iterative reconstruction technique. COMPARISON: None. FINDINGS: There is a region of patchy air space disease in the right lung base laterally consistent with pneum onia. There is also mild bronchopneumonia in the left lung base posteriorly. The lung bases are othe rwise normal. There is no pleural effusion or pericardial effusion. The heart size is normal. The liver is enlarged. There is no focal hepatic lesion. Gallstones or sludge are present in the gallbladder. There is no evidence of cholecystitis. The bile ducts are normal. The spleen is normal in size. There is no focal splenic lesion. Both adrenals are normal with no enlargement or mass. There are punctate calcifications in the body and tail of the pancreas consistent with chronic pancr eatitis. There is a coarse calcification in the head of the pancreas, also consistent with chronic p ancreatitis. There is no renal mass or hydronephrosis. There is no renal calculus or ureteral calculus. The abdominal aorta is not dilated. There is calcification in the aorta consistent with atherosclero sis. There is no retroperitoneal lymphadenopathy or mass. There is no pelvic lymphadenopathy or mass. There is a Darden catheter in the urinary bladder. The bladder and distal ureters are otherwise unrem arkable. The periappendiceal region is unremarkable with no evidence of appendicitis. There is diffuse dilated small bowel and colon with air-fluid levels consistent with ileus. There is no free fluid or free air. The osseous structures are unremarkable with no fracture or lytic lesion. IMPRESSION: 1. Small region of pneumonia in the right lower lobe laterally. 2. Mild bronchopneumonia at the left lung base posteriorly. 3. Hepatomegaly. 4. Gallstones or sludge in the gallbladder. No evidence of cholecystitis. Normal bile ducts. 5. Calcification in the pancreas consistent with chronic pancreatitis. 6. Darden catheter in the bladder. 7. Diffuse dilated small bowel and colon with air-fluid levels consistent with ileus. 8. Otherwise unremarkable study. RPTAT: QQ .Caden Cerna MD, Date Time Electronically viewed and signed by .Caden Cerna MD, on 02/11/2017 23:07 .R/
== END | disposition home or self-care (01) ==
LOC: CANPRERCR → ZBAR 21:32 → EDSTATUS 21:42 → RAD 21:47
PROVIDERS: ATTEND Internal Medicine Gastroenterology
DX: R14.0 Abdominal distension (gaseous) (principal); Z93.0 Tracheostomy status
CPT/HCPCS: 74176; 94002